=== PATIENT | female | born 1975 | race Caucasian/White ===

== ENCOUNTER 2020-01-27 09:53 | Outpatient (REF) | payer OTHER, SELFPAY | END 2020-01-27 09:55 | LOC: HO.SL 09:53 | PROVIDERS: PCP Internal Medicine; Visit Provider Internal Medicine | DX: G47.33 Obstructive sleep apnea (adult) (pediatric) (principal); R06.83 Snoring | CPT/HCPCS: 95806 ==

== ENCOUNTER 2020-02-01 08:42 | Outpatient (REF) | payer OTHER, SELFPAY ==
--- NOTE | 2020-02-01 | US_ITS ---
EXAMINATION: US RENAL CLINICAL INFORMATION: Calculus of kidney. COMPARISON: None TECHNIQUE: Real-time imaging of the kidneys and bladder. FINDINGS: RIGHT KIDNEY: 12.8 x 5.7 x 6.0 cm (SAG x AP x TRV). The kidney is normal in size, contour, and echogenicity. Renal cortical thickness is normal. No calculi or focal parenchymal lesions. No hydronephrosis. LEFT KIDNEY: 12.7 x 5.7 x 4.2 cm (SAG x AP x TRV). The kidney is normal in size, contour, and echogenicity. Renal cortical thickness is normal. No calculi or focal parenchymal lesions. No hydronephrosis. IMPRESSION: Unremarkable renal ultrasound. No evidence of hydronephrosis.
== END 2020-02-01 08:43 | disposition home or self-care (01) ==
LOC: HO.HMGCX 08:42
PROVIDERS: PCP Internal Medicine; Visit Provider Urology
DX: N20.0 Calculus of kidney (principal)
CPT/HCPCS: 76775; 95806

== ENCOUNTER → 2020-02-11 09:06 | Outpatient (BNVA) | payer OTHER, SELFPAY | PROVIDERS: PCP Internal Medicine; Visit Provider Urology | DX: Z48.816 Encounter for surgical aftercare following surgery on the genitourinary system (principal) | CPT/HCPCS: 51798; 99212; 99214 ==

== ENCOUNTER → 2020-02-16 09:42 | Outpatient (BNVA) | payer OTHER, SELFPAY | PROVIDERS: PCP Internal Medicine; Visit Provider Internal Medicine | DX: G47.33 Obstructive sleep apnea (adult) (pediatric) (principal); E66.9 Obesity, unspecified; R06.00 Dyspnea, unspecified | CPT/HCPCS: 94010; 99213 ==

== ENCOUNTER 2020-03-01 12:49 | Outpatient (REF) | payer OTHER, SELFPAY ==
--- NOTE | 2020-03-01 12:54 | XR_ITS ---
EXAMINATION: XR CHEST CLINICAL INFORMATION: Chest pain. COMPARISON: None TECHNIQUE: 2 views of the chest were obtained. FINDINGS: No significant abnormality is noted involving the heart, lungs, mediastinum, bony thorax or soft tissues. XR/XR chest 2V IMPRESSION: Unremarkable chest examination.
== END 2020-03-01 12:50 | disposition home or self-care (01) ==
LOC: HO.HMGCX 12:49
PROVIDERS: PCP Internal Medicine; Visit Provider Nurse Practitioner Family
DX: R07.89 Other chest pain (principal)
CPT/HCPCS: 71046

== ENCOUNTER 2020-03-05 08:54 | Inpatient (IN) | payer OTHER, SELFPAY ==
[2020-03-05] VITALS (9 sets, daily range): BP systolic 113–155; BP diastolic 61–114; PULSE 88–105; RESP 16–20; TEMP 36.6–37; O2SAT 95–100; BMI 36.1; BMI 35.9
--- NOTE | 2020-03-05 09:15 | ED_ITS ---
HPI - Nausea/Vomiting/Diarrhea General Chief complaint: Abdominal Pain Stated complaint: N/V Time Seen by Provider: 03/05/20 09:05 Source: patient Mode of arrival: ambulatory Limitations: no limitations History of Present Illness HPI Narrative: 44 yo female with past medical history of fibromyalgia, optic neuritis, MD, bipolar, depression, h/o heroin use but not currently, OA, DULCE, h/o bladder incontinence with interstim, hernia repair, known rectal prolapse here abdominal pain/NBNB vomiting x 6 since last evening. Took a percocet with continued pain. [place] like she needed to move her bowels and able to pass very small hard stool this morning. Last bowel movement 3 days ago. Has some urinary frequency at baseline. No hematuria, worsening frequency, dysuria. No fevers/chills. LMP 02/27. Also c/o right middle back pain x 2 weeks. Seen at urgent care 03/01 and given flexeril for presumed MS pain. Patient tells me continued pain. No heavy lifting, bending or recent falls or trauma. MD elicited complaint: nausea, vomiting, abdominal pain and flank pain Onset (ago): day(s) Associated nausea: Yes Associated abdominal pain: Yes Location of pain: diffuse Radiation: diffuse Pain consistency: constant Severity: mild Quality: cramping Exacerbating factors: none Relieving factors: none Associated symptoms: nausea/vomiting Related Data Home Medications Medication Instructions Recorded Confirmed aripiprazole 5 mg tablet 5 mg PO DAILY 01/26/20 03/05/20 aspirin 81 mg tablet,delayed 81 mg PO DAILY 01/26/20 03/05/20 release bupropion HCl 300 mg 24 hr tablet, 300 mg PO DAILY 01/26/20 03/05/20 extended release carbamazepine 200 mg tablet 200 mg PO QID 01/26/20 03/05/20 cholecalciferol (vitamin D3) 50 50 mcg PO BEDTIME 01/26/20 03/05/20 mcg (2,000 unit) capsule clonazepam 1 mg tablet 1 mg PO TID PRN 01/26/20 03/05/20 fluoxetine 20 mg capsule 40 mg PO DAILY 01/26/20 03/05/20 glycopyrrolate 1 mg tablet 1 mg PO TID 01/26/20 03/05/20 melatonin 10 mg capsule 10 mg BEDTIME 01/26/20 03/05/20 clindamycin phosphate 1 % lotion 1 applic TOPICAL DAILY 10/21/20 11/08/20 mometasone 0.1 % topical ointment 1 applic TOPICAL DAILY 02/16/20 03/05/20 norethindrone acetate 5 mg tablet 5 mg PO DAILY 02/16/20 03/05/20 primidone 50 mg tablet 100 mg PO TID 02/16/20 03/05/20 tretinoin 0.1 % topical cream 1 applic TOPICAL BEDTIME PRN 02/16/20 03/05/20 Previous Rx's Medication Instructions Recorded ondansetron HCl 4 mg tablet 4 mg PO Q6H #20 tab 02/11/20 cyclobenzaprine 5 mg tablet 5 mg PO BEDTIME PRN #14 tab 03/01/20 naproxen 500 mg tablet 500 mg PO BID PRN #30 tab 03/01/20 Allergies Allergy/AdvReac Type Severity Reaction Status Date / Time Penicillins Allergy Severe ITCHING/SWE Verified 02/16/20 10:01 LLING doxycycline [DOXYCYCLINE] Allergy Intermediate SEVERE Verified 02/16/20 10:01 ITCHING, pruritis sulfamethoxazole [Bactrim] Allergy Unknown Unknown Verified 02/16/20 10:01 Review of Systems Review of Systems: Yes all other systems are reviewed and are negative Constitutional: Constitutional: Reports no additional constitutional complaints, Denies body ache(s), Denies chills, Denies fever(s), Denies headache(s) and Denies weakness Eyes: Eyes: Reports no additional eye complaints and Denies change in vision ENT: Reports system reviewed and no additional complaints, except as documented, Denies dizziness, Denies headache(s), Denies nasal congestion, Denies nasal discharge and Denies neck pain Cardiovascular: Cardiovascular: Reports no additional cardiovascular co mplaints, Denies chest pain, Denies leg edema and Denies dyspnea Respiratory: Respiratory: Reports no additional respiratory complaints, Denies cough and Denies dyspnea Gastrointestinal: Gastrointestinal: Reports no additional gastrointestinal complaints, Reports abdominal pain, Reports constipation, Reports nausea and Reports vomiting Genitourinary: Genitourinary: Reports no additional female genitourinary complaints and Denies urinary incontinence Musculoskeletal: Musculoskeletal: Reports no additional musculoskeletal complaints, Denies back pain, Denies arthralgias, Denies joint swelling, Denies neck pain, Denies numbness and Denies tingling Integumentary/Breasts: Skin/Breast: Reports system reviewed and no additional complaints, except as docu and Denies rash Neurologic: Reports system reviewed and no additional complaints, except as documented, Denies Abnormal speech present, Denies dizziness, Denies headache(s), Denies numbness, Denies tingling and Denies weakness PMFSH Past Medical History Attestation statement: The following information was validated with the patient. Source: obtained from family and nursing notes reviewed Medical History (Updated 03/05/20 @ 12:06 by Paula Morrow NP) Arthritis Back pain Bipolar II disorder Dyspnea Fibromyalgia History of MD (myocardial infarction) History of urinary incontinence Lab test negative for COVID-19 virus Obesity Optic neuritis DULCE (obstructive sleep apnea) Rectal prolapse Surgical History H/O cystoscopy (06/08/19) History of pubovaginal sling (10/19/19) History of total left knee replacement (TKR) (11/2016) History of total right knee replacement (06/2016) Social History Social History (Updated 03/01/20 @ 20:02 by Bekah Ohara RN) Alcohol intake: unknown Smoking Status: Unknown if ever smoked Tobacco Type: Cigarette Use of substances other than those prescribed or required for medical reasons: Unknown Substance Use Type: Marijuana and Opiates Advance Directives: No Advance Directives Information Provided: No Physical Exam Vital Signs: Vital Signs: Last Vital Signs Pulse 105 H 03/05/20 12:20 Resp 18 03/05/20 12:19 BP 155/114 H 03/05/20 12:20 Pulse Ox 100 03/05/20 12:20 Body Mass Index 36.1 Const: General: cooperative, healthy appearing, comfortable and no acute distress Orientation/consciousness: patient oriented x3 Limitations: no limitations HENMT: Head: Yes normal to inspection Ears: hearing grossly normal bilaterally General nose exam: Normal external nose present Face and sinus: Yes normal facial exam Mouth: Normal oral and palatal mucosa present Throat: Yes posterior oropharynx normal Eyes: General: appearance normal, both eyes and all related structures Pupils: Equal, round and reactive pupils present Neck: Neck: Yes normal visual inspection Chest: Chest palpation & inspection: normal inspection of the chest Resp: Effort & Inspection: normal respiratory effort Auscultation: clear to auscultation bilaterally Cardio: Rate: regular rate Rhythm: regular rhythm Peripheral pulses: Peripheral pulses 2+ throughout GI: Inspection: Yes normal to inspection Palpation (GI): Soft to palpation, Tenderness to palpation present (GI) (diffusely moderate tenderneess), no guarding and not rigid Auscultation: normal bowel sounds Back/Spine/Pelvis: Thoracic/Lumbar Spine: thoracic and lumbar spine normal to inspection Skin: General skin exam: no rashes or lesions noted Neuro: General: patient oriented x3, no focal motor deficits and normal sensation to monofilament Cranial nerves: Yes Equal, round and reactive pupils present Cognition (Neuro): normal cognition Speech: No Abnormal speech present Gait exam (Neuro): Normal gait present Motor exam (neuro): 5/5 motor strength present throughout Extrem: General: Yes normal to inspection Course Course Course Narrative: 44 yo female here with abdominal pain, right flank pain, vomiting and constipation. Will need labs, UA, ur , CT A/P. NSB, antiemetic and analgesia. 1154-CT concerning for partial small-bowel obstruction. Patient has required 2 doses of IV narcotics and 2 doses of IV antiemetic for symptoms. She she has not vomited here only complaining of nausea. Call out to surgery discuss. 1205-discussed with Dr. Mahmood from surgery. Plan for admission. MDM - Nausea/Vomiting/Diarrhea MDM Narrative Medical decision making narrative: Considered SBO, constipation, gas troenteritis, diverticulitis, renal colic, pyelo/uti Medical Records Attestation: I reviewed the patient's medical records. Lab Data Attestation: I reviewed the patient's lab results. Result diagrams: 03/05/20 09:34 03/05/20 09:34 Labs: Lab Results 03/05/20 03/05/20 03/05/20 Range/Units 09:34 09:34 09:34 WBC 10.7 (4.8-10.8) X10*3/uL RBC 4.70 (4.20-5.50) X10*6/uL Hgb 13.3 (12.0-16.0) g/dl Hct 40.3 (37-47) % MCV 85.7 (80-98) fL MCH 28.3 (27.0-33.0) pg MCHC 33.0 (31.0-35.0) g/dl RDW 13.0 (11.0-16.0) % Plt Count 304 (160-400) X10*3/uL MPV 10.3 (9.4-12.3) fL Immature Gran % (Auto) 0.2 (0.0-0.4) % Neut % (Auto) 92.6 H (45-73) % Lymph % (Auto) 4.5 L (20-40) % [place] % (Auto) 2.4 (2-11) % Eos % (Auto) 0.1 (0-4) % Baso % (Auto) 0.2 (0-2) % Lymph # (Auto) 0.5 L (1.2-4.9) X10*3/uL [place] # (Auto) 0.3 (0.1-1.2) X10*3/uL Eos # (Auto) 0.0 (0.0-0.4) X10*3/uL Baso # (Auto) 0.0 (0.0-0.2) X10*3/uL Abs Immat Gran (auto) 0.02 (0.00-0.03) X10*3/uL Absolute Neuts (auto) 9.9 H (2.0-8.3) X10*3/uL Absolute Nucleated RBC 0.000 (0.0-0.012) X10*3/uL Nucleated RBC % (auto) 0.0 (0.0-0.2) /100WBC Sodium 134 L (135-145) mmol/L Potassium 4.1 (3.3-5.1) mmol/l Chloride 104 (96-108) mmol/L Carbon Dioxide 22 (22-29) mmol/L Anion Gap 12 (12-20) BUN 18 H (9-16) mg/dL Creatinine 0.71 (0.5-1.4) mg/dL Estim Creat Clear Calc 107.4 Estimated GFR > 60 Random Glucose 154 H (60-115) mg/dL Calcium 8.2 L (8.4-10.2) mg/dL Magnesium 1.6 (1.6-2.6) mg/dL Total Bilirubin < 0.2 (0.0-1.0) mg/dL Direct Bilirubin < 0.2 (0.0-0.5) mg/dL AST 18 (5-31) U/L ALT 15 (0-31) U/L Alkaline Phosphatase 69 (39-117) U/L Total Protein 6.3 L (6.5-8.0) g/dL Albumin 4.1 (3.5-5.0) g/dL Lipase 8 (8-78) U/L Urine Color YELLOW Urine Appearance CLOUDY Urine pH 6.5 (5.0-8.0) Ur Specific [place] 1.025 (1.005-1.025) Urine Protein NEG (NEG-TRACE) MG/DL Urine Glucose (UA) NEG (NEG) MG/DL Urine Ketones NEG (NEG) MG/DL Urine Blood NEG (NEG) Urine Nitrite NEG (NEG) Ur Leukocyte Esterase NEG (NEG) Urine Test NEGATIVE (NEGATIVE) Imaging Data CT scan - abdomen: Radiologist's impression: EXAMINATION: CT ABDOMEN AND PELVIS WITH CONTRAST CLINICAL INFORMATION: Diffuse abdominal pain. Constipation. Rule out small bowel obstruction. COMPARISON: None TECHNIQUE: Multidetector volumetric images were obtained from the superior aspect of the liver through the pubic symphysis following administration 85 mL of Omnipaque 350 intravenous contrast. Sagittal and coronal reformatted images were obtained on the technologist's workstation. Oral contrast: No This CT examination was performed using dose optimization techniques as appropriate, variously including the following: *Automated exposure control *Adjustment of mA and/or kV according to patient size (this includes techniques or standardized protocols for targeted exams where dose is matched to indication/reason for exam; i.e. extremities or head) *Use of iterative reconstruction technique DLP: 712 mGy-cm FINDINGS: LUNG BASES: There is mild dependent atelectasis bilaterally. LIVER, GALLBLADDER, AND BILIARY TREE: The liver is normal in size, shape, and attenuation. No focal hepatic lesion or biliary ductal dilatation is present. The gallbladder is unremarkable with no evidence of radiopaque gallstones, gallbladder wall thickening, or obvious pericholecystic inflammatory changes. PANCREAS: Unremarkable. SPLEEN: Unremarkable. ADRENAL GLANDS: Unremarkable. KIDNEYS AND URETERS: The kidneys are normal in size, shape, and attenuation. No hydronephrosis, hydroureter, or calculi seen. No perinephric stranding. BLADDER: Unremarkable. GASTROINTESTINAL TRACT: The stomach and duodenum are unremarkable. Proximal loops of jejunum are mildly dilated. There is a transition zone to the right of midline in the upper abdomen. The appearance suggests incomplete obstruction. No mass or wall thickening is demonstrated. Distal small bowel loops are decompressed and unremarkable. No abnormality of the small bowel mesentery is demonstrated. The colon is unremarkable. Air and stool are present through the course of the colon. The appendix is normal. ABDOMINAL WALL: No significant hernia is appreciated. LYMPH NODES: Normal. VASCULAR: Unremarkable. PELVIC VISCERA: Unremarkable. OSSEOUS STRUCTURES: An electrical stimulator is present along the right side of the sacrum extending to the sciatic notch. No bony abnormality is demonstrated. CT/CT abdomen pelvis w con IMPRESSION: Mildly dilated proximal jejunal loops with transition zone in the right upper abdomen concerning for incomplete small bowel obstruction. Cause of obstruction is not apparent. Discharge Plan Discharge Clinical Impression: Partial bowel obstruction Qualifiers: Intestinal obstruction type: unspecified Qualified Code(s): K56.600 - Partial intestinal obstruction, unspecified as to cause Prescriptions: No Action cyclobenzaprine 5 mg tablet 5 mg PO BEDTIME PRN (Reason: muscle spasm) Qty: 14 RF: 0 naproxen 500 mg tablet 500 mg PO BID PRN (Reason: pain) Qty: 30 RF: 0 ondansetron HCl [Zofran] 4 mg tablet 4 mg PO Q6H Qty: 20 RF: 1 clonazepam 1 mg tablet 1 mg PO TID PRN (Reason: Skin Cleansing) RF: 0 aspirin 81 mg tablet,delayed release (DR/EC) 81 mg PO DAILY RF: 0 melatonin 10 mg capsule 10 mg BEDTIME RF: 0 glycopyrrolate 1 mg tablet 1 mg PO TID RF: 0 fluoxetine 20 mg capsule 40 mg PO DAILY RF: 0 aripiprazole 5 mg tablet 5 mg PO DAILY RF: 0 carbamazepine 200 mg tablet 200 mg PO QID RF: 0 bupropion HCl 300 mg tablet extended release 24 hr 300 mg PO DAILY RF: 0 cholecalciferol (vitamin D3) 50 mcg (2,000 unit) capsule 50 mcg PO BEDTIME RF: 0 norethindrone acetate 5 mg tablet 5 mg PO DAILY RF: 0 primidone 50 mg tablet 100 mg PO TID RF: 0 mometasone 0.1 % ointment 1 applic topical DAILY RF: 0 tretinoin 0.1 % cream 1 applic topical BEDTIME PRN (Reason: Skin Cleansing) RF: 0 clindamycin phosphate 1 % lotion 1 applic topical DAILY RF: 0
[2020-03-05 09:43] LABS: Basophils Percent Auto 0.2 % (0-2); Eosinophils Percent Auto 0.1 % (0-4); Hematocrit 40.3 % (37-47); Hemoglobin 13.3 g/dl (12.0-16.0); Imm Gran Abs Auto 0.02 X10*3/uL (0.00-0.03); Imm Gran Pct Auto 0.2 % (0.0-0.4); Lymphocytes Absolute Auto 0.5 X10*3/uL (1.2-4.9); Lymphocytes Percent Auto 4.5 % (20-40); MANUAL DIFF FLAG NO; Mean Corpuscular Hemoglobin 28.3 pg (27.0-33.0); Mean Corpuscular Volume 85.7 fL (80-98); Mean Platelet Volume 10.3 fL (9.4-12.3); Monocytes Absolute Auto 0.3 X10*3/uL (0.1-1.2); Monocytes Percent Auto 2.4 % (2-11); Neutrophils Absolute Auto 9.9 X10*3/uL (2.0-8.3); Neutrophils Percent Auto 92.6 % (45-73); Platelet Count 304 X10*3/uL (160-400); SCAN SMEAR FLAG 1; White Blood Count 10.7 X10*3/uL (4.8-10.8)
[2020-03-05] MEDS: ondansetron HCL 4 MG/2 ML VIAL IVPUSH ×3 (09:43→19:17)
[2020-03-05] MEDS: Morphine Sulfate 4 MG/ML CARTRIDGE IVPUSH ×2 (09:43→19:24)
[2020-03-05] MEDS: 0.9 % Sodium Chloride 1,000 ML 999 ML IV (09:44)
[2020-03-05 09:45] LABS: UPreg QC Valid YES; Urine Pregnancy NEGATIVE (NEGATIVE)
[2020-03-05 09:47] LABS: Appearance Urine CLOUDY; Color Urine YELLOW; Glucose Urine UA NEG (NEG); Leukocyte Esterase Urine NEG (NEG); Nitrite Urine NEG (NEG); PH 6.5 (5.0-8.0); Specific Gravity - Urine 1.025 (1.005-1.025); Urine Blood NEG (NEG); Urine Ketones NEG (NEG); Urine Protein NEG (NEG-TRACE)
[2020-03-05 10:12] LABS: Alanine Aminotransferase 15 U/L (0-31); Albumin Level 4.1 g/dL (3.5-5.0); Alkaline Phosphatase 69 U/L (39-117); Anion Gap 12 (12-20); Aspartate Amino Transferase 18 U/L (5-31); Bilirubin Direct < 0.2 mg/dL (0.0-0.5); Bilirubin Total < 0.2 mg/dL (0.0-1.0); Blood Urea Nitrogen 18 mg/dL (9-16); Calcium 8.2 mg/dL (8.4-10.2); Carbon Dioxide 22 mmol/L (22-29); Chloride 104 mmol/L (96-108); Creatinine Clr Calc Pharmacy 107.4; Estimated Glomerular Filt Rate > 60; Glucose Random 154 mg/dL (60-115); Lipase 8 U/L (8-78); Magnesium 1.6 mg/dL (1.6-2.6); Potassium 4.1 mmol/l (3.3-5.1); Sodium 134 mmol/L (135-145); Total Protein 6.3 g/dL (6.5-8.0)
--- NOTE | 2020-03-05 10:20 | CT_ITS ---
EXAMINATION: CT ABDOMEN AND PELVIS WITH CONTRAST CLINICAL INFORMATION: Diffuse abdominal pain. Constipation. Rule out small bowel obstruction. COMPARISON: None TECHNIQUE: Multidetector volumetric images were obtained from the superior aspect of the liver through the pubic symphysis following administration 85 mL of Omnipaque 350 intravenous contrast. Sagittal and coronal reformatted images were obtained on the technologist's workstation. Oral contrast: No This CT examination was performed using dose optimization techniques as appropriate, variously including the following: *Automated exposure control *Adjustment of mA and/or kV according to patient size (this includes techniques or standardized protocols for targeted exams where dose is matched to indication/reason for exam; i.e. extremities or head) *Use of iterative reconstruction technique DLP: 712 mGy-cm FINDINGS: LUNG BASES: There is mild dependent atelectasis bilaterally. LIVER, GALLBLADDER, AND BILIARY TREE: The liver is normal in size, shape, and attenuation. No focal hepatic lesion or biliary ductal dilatation is present. The gallbladder is unremarkable with no evidence of radiopaque gallstones, gallbladder wall thickening, or obvious pericholecystic inflammatory changes. PANCREAS: Unremarkable. SPLEEN: Unremarkable. ADRENAL GLANDS: Unremarkable. KIDNEYS AND URETERS: The kidneys are normal in size, shape, and attenuation. No hydronephrosis, hydroureter, or calculi seen. No perinephric stranding. BLADDER: Unremarkable. GASTROINTESTINAL TRACT: The stomach and duodenum are unremarkable. Proximal loops of jejunum are mildly dilated. There is a transition zone to the right of midline in the upper abdomen. The appearance suggests incomplete obstruction. No mass or wall thickening is demonstrated. Distal small bowel loops are decompressed and unremarkable. No abnormality of the small bowel mesentery is demonstrated. The colon is unremarkable. Air and stool are present through the course of the colon. The appendix is normal. ABDOMINAL WALL: No significant hernia is appreciated. LYMPH NODES: Normal. VASCULAR: Unremarkable. PELVIC VISCERA: Unremarkable. OSSEOUS STRUCTURES: An electrical stimulator is present along the right side of the sacrum extending to the sciatic notch. No bony abnormality is demonstrated. CT/CT abdomen pelvis w con IMPRESSION: Mildly dilated proximal jejunal loops with transition zone in the right upper abdomen concerning for incomplete small bowel obstruction. Cause of obstruction is not apparent.
--- NOTE | 2020-03-05 11:07 | PC.NURSE ---
NO VOMITING NOTED SLOWLY RESOLVING NAUSEA
--- NOTE | 2020-03-05 11:41 | PC.NURSE ---
PT AMBULATORY TO THE BATHROOM REQUESTING MORE NAUSEA MEDICATION NO VOMITING NOTED
[2020-03-05] MEDS: HYDROmorphone HCl 1 MG/ML SYRINGE IVPUSH ×2 (12:19→15:47)
[2020-03-05 13:37] LABS: SARS COV2 PCR INHOUSE NEGATIVE (Negative)
--- NOTE | 2020-03-05 14:33 | PC.NURSE ---
called floor for admission
--- NOTE | 2020-03-05 16:48 | PC.NURSE ---
report given for admission to floor
--- NOTE | 2020-03-05 17:07 | P.HPGS_ITS ---
History of Present Illness History of Present Illness Chief complaint: partial small bowel obstruction Narrative: Niya Haji is a 44 year old female With complaints of abdominal pain and constipation made worse today. She also has a history of rectal prolapse and reports needing to strain to have a bowel movement on a normal basis. She reports nausea and vomiting is subsequently presented to the emergency department. She denies fever or chills. Workup revealed mild read abdominal distension with tenderness to palpation. CT of the abdomen and pelvis however revealed distended loops of proximal small bowel with an area of transition to decompressed small bowel suggestive of a partial small-bowel ob struction. Patient is admitted to the surgical service for management of small- bowel obstruction. She has had previous urologic surgery and hernia surgery. Review of Systems Constitutional: Constitutional: Denies headache(s) and Denies weakness ENT: Denies dizziness and Denies headache(s) Cardiovascular: Cardiovascular: Denies chest pain, Denies rapid heart rate, Denies palpitations and Denies slow heart rate Respiratory: Respiratory: Denies chest congestion, Denies cough, Denies pain o n inspiration and Denies wheezing Gastrointestinal: Gastrointestinal: Reports abdominal pain, Reports bloating, Reports change in stool character, Reports constipation, Denies diarrhea, Repo rts nausea, Reports vomiting and Denies hematemesis Musculoskeletal: Musculoskeletal: Denies numbness and Denies tingling Integumentary/Breasts: Skin/Breast: Denies change in pigmentation, Denies erythema and Denies rash Neurologic: Reports system reviewed and no additional complaints, except as documented, Denies Abnormal speech present, Denies confusion, Denies dizziness, Denies headache(s), Denies numbness, Denies tingling and Denies weakness Psychiatric: Psychiatric: Reports anxiety, Denies confusion and Denies depression Endocrine: Endocrine: Denies palpitations Hematologic/Lymphatic: Hematologic/Lymphatic: Denies easy bleeding, Denies easy bruising and Denies lymphadenopathy Allergic/Immunologic: Allergic/Immunologic: Denies wheezing PMFSH Past Medical History Medical History Arthritis Back pain Bipolar II disorder Dyspnea Fibromyalgia History of MO (myocardial infarction) History of urinary incontinence Lab test negative for COVID-19 virus Obesity Optic neuritis DULCE (obstructive sleep apnea) Rectal prolapse Surgical History Surgical History H/O cystoscopy (06/08/19) History of pubovaginal sling (10/19/19) History of total left knee replacement (TKR) (11/2016) History of total right knee replacement (06/2016) Social History Social History Alcohol intake: unknown Smoking Status: Unknown if ever smoked Tobacco Type: Cigarette Use of substances other than those prescribed or required for medical reasons: Unknown Substance Use Type: Marijuana and Opiates Advance Directives: No Advance Directives Information Provided: No Meds Allergies Allergy/AdvReac Type Severity Reaction Status Date / Time Penicillins Allergy Severe ITCHING/SWE Verified 02/16/20 10:01 LLING doxycycline [DOXYCYCLINE] Allergy Intermediate SEVERE Verified 02/16/20 10:01 ITCHING, pruritis sulfamethoxazole [Bactrim] Allergy Unknown Unknown Verified 02/16/20 10:01 Home Medications Medication Instructions Recorded Confirmed Type aripiprazole 5 mg tablet 5 mg PO DAILY 01/26/20 03/05/20 History aspirin 81 mg tablet,delayed 81 mg PO DAILY 01/26/20 03/05/20 History release bupropion HCl 300 mg 24 hr tablet, 300 mg PO DAILY 01/26/20 03/05/20 History extended release carbamazepine 200 mg tablet 200 mg PO QID 01/26/20 03/05/20 History cholecalciferol (vitamin D3) 50 50 mcg PO BEDTIME 01/26/20 03/05/20 History mcg (2,000 unit) capsule clonazepam 1 mg tablet 1 mg PO TID PRN 01/26/20 03/05/20 History fluoxetine 20 mg capsule 40 mg PO DAILY 01/26/20 03/05/20 History glycopyrrolate 1 mg tablet 1 mg PO TID 01/26/20 03/05/20 History melatonin 10 mg capsule 10 mg BEDTIME 01/26/20 03/05/20 History clindamycin phosphate 1 % lotion 1 applic TOPICAL DAILY 02/16/20 03/05/20 History mometasone 0.1 % topical ointment 1 applic TOPICAL DAILY 02/16/20 03/05/20 History norethindrone acetate 5 mg tablet 5 mg PO DAILY 02/16/20 03/05/20 History primidone 50 mg tablet 100 mg PO TID 02/16/20 03/05/20 History tretinoin 0.1 % topical cream 1 applic TOPICAL BEDTIME PRN 02/16/20 03/05/20 History Physical Exam Vital Signs: Vital Signs: Last Vital Signs Temp 98.3 F 03/05/20 14:07 Pulse 102 H 03/05/20 15:50 Resp 16 03/05/20 15:50 BP 147/93 H 03/05/20 15:50 Pulse Ox 98 03/05/20 15:50 Body Mass Index 36.1 Const: General: No confusion Nutritional Appearance: well nourished Orientation/consciousness: No confusion Eyes: Sclerae: sclerae normal EOM: EOMs intact bilaterally Neck: Neck: Yes normal visual inspection Resp: Effort & Inspection: normal respiratory effort, no cough and no respira tory distress Cardio: Jugular venous distension: no JVD Rate: regular rate Rhythm: regular rhythm GI: Inspection: Yes normal to inspection Palpation (GI): Soft to palpation, Tenderness to palpation present (GI), Guarding due to palpation present (GI) and Rigid due to palpation Percussion: Yes normal to percussion Auscul tation: normal bowel sounds Skin: General skin exam: dry skin Rashes: no rashes Neuro: General: No confusion Speech: No Abnormal speech present Extrem: General: Yes no clubbing, cyanosis or edema Right upper extremity: normal capillary refill Left upper extremity: full ROM Results Results Labs: Short CBC 03/05/20 Range/Units 09:34 WBC 10.7 (4.8-10.8) X10*3/uL Hgb 13.3 (12.0-16.0) g/dl Hct 40.3 (37-47) % Plt Count 304 (160-400) X10*3/uL BMP 03/05/20 09:34 Sodium 134 L Potassium 4.1 Chloride 104 Carbon Dioxide 22 BUN 18 H Creatinine 0.71 Calcium 8.2 L Liver Function 03/05/20 Range/Units 09:34 Total Bilirubin < 0.2 (0.0-1.0) mg/dL Direct Bilirubin < 0.2 (0.0-0.5) mg/dL AST 18 (5-31) U/L ALT 15 (0-31) U/L Alkaline Phosphatase 69 (39-117) U/L Albumin 4.1 (3.5-5.0) g/dL Urine 03/05/20 Range/Units 09:34 Urine Color YELLOW Urine Appearance CLOUDY Urine pH 6.5 (5.0-8.0) Ur Specific [place] 1.025 (1.005-1.025) Urine Protein NEG (NEG-TRACE) MG/DL Urine Glucose (UA) NEG (NEG) MG/DL Urine Test NEGATIVE (NEGATIVE) CT of the abdomen and pelvis ( 03/05/2020) Dilated proximal small bowel with transition zone in the mid small-bowel with decompressed distal small bowel. Colon is full of stool. An electrical stimulator is present along the right side of the sacrum extending to the sciatic notch; battery pack is in the lower right back. Assessment and Plan (1) Partial bowel obstruction: Qualifiers: Intestinal obstruction type: unspecified Qualified Code(s): K56.600 - Partial intestinal obstruction, unspecified as to cause Status: Acute Patient presents with a history of chronic constipation recently diagnosed with rectal prolapse. She is undergoing a workup for this by an outside certified athletic trainer. Workup today in emergency department reveals a slightly dilated proximal small bowel with decompressed distal small bowel suggestive of a partial small-bowel obstruction although no clear cause of the obstruction is identified. The patient does have a colon full of gas and stool also suggestive of a partial obstruction. Will hold off on nasogastric tube as the stomach is not extremely dilated. She would placed on bowel rest with IV fluids. For abdominal pain is improved in the morning she will be started on liquids and advanced from there. The patient expressed understanding and agrees withof the plan
[2020-03-05] MEDS: Dextrose 5 % and Lactated Ring 1,000 ML 125 ML IVCONT (18:56)
[2020-03-05] MEDS: clonazePAM 1 MG TABLET PO (19:24)
[2020-03-05] MEDS: FLUoxetine HCl 20 MG CAPSULE 40 MG PO (19:34)
[2020-03-05] MEDS: carBAMazepine 200 MG TABLET PO (19:34)
[2020-03-05] MEDS: buPROPion HCl XL 300 MG TAB.ER.24H PO (19:35)
[2020-03-05] MEDS: Melatonin 3 MG TABLET 9 MG PO (20:40)
[2020-03-05] MEDS: Primidone 50 MG TABLET 100 MG PO (20:40)
[2020-03-05] MEDS: Cyclobenzaprine HCl 5 MG TABLET PO (20:40)
[2020-03-05] MEDS: NaPROXEN 500 MG TABLET PO (20:44)
[2020-03-06] VITALS (7 sets, daily range): BP systolic 98–141; BP diastolic 64–94; PULSE 69–96; RESP 18; TEMP 36.3–37; O2SAT 96–99; BMI 35.9
[2020-03-06] MEDS: ondansetron HCL 4 MG/2 ML VIAL IVPUSH ×3 (03:58→19:40)
[2020-03-06] MEDS: clonazePAM 1 MG TABLET PO ×3 (03:58→19:41)
[2020-03-06] MEDS: Dextrose 5 % and Lactated Ring 1,000 ML 125 ML IVCONT ×3 (04:00→20:57)
[2020-03-06 05:05] LABS: MANUAL DIFF FLAG NO
[2020-03-06 05:14] LABS: Basophils Percent Auto 0.4 % (0-2); Eosinophils Absolute Auto 0.1 X10*3/uL (0.0-0.4); Eosinophils Percent Auto 1.1 % (0-4); Hematocrit 34.7 % (37-47); Hemoglobin 11.2 g/dl (12.0-16.0); Imm Gran Abs Auto 0.02 X10*3/uL (0.00-0.03); Imm Gran Pct Auto 0.3 % (0.0-0.4); Lymphocytes Absolute Auto 1.9 X10*3/uL (1.2-4.9); Lymphocytes Percent Auto 26.4 % (20-40); Mean Corpuscular HGB Conc 32.3 g/dl (31.0-35.0); Mean Corpuscular Hemoglobin 28.1 pg (27.0-33.0); Mean Corpuscular Volume 87.2 fL (80-98); Mean Platelet Volume 10.7 fL (9.4-12.3); Monocytes Absolute Auto 0.6 X10*3/uL (0.1-1.2); Monocytes Percent Auto 9.1 % (2-11); Neutrophils Absolute Auto 4.4 X10*3/uL (2.0-8.3); Neutrophils Percent Auto 62.7 % (45-73); Platelet Count 271 X10*3/uL (160-400); Red Blood Count 3.98 X10*6/uL (4.20-5.50); Red Cell Distribution Width 13.4 % (11.0-16.0)
[2020-03-06 05:37] LABS: Anion Gap 8 (12-20); Blood Urea Nitrogen 12 mg/dL (9-16); Calcium 7.6 mg/dL (8.4-10.2); Carbon Dioxide 26 mmol/L (22-29); Chloride 106 mmol/L (96-108); Creatinine Clr Calc Pharmacy 108.6; Estimated Glomerular Filt Rate > 60; Glucose Random 103 mg/dL (60-115); Potassium 3.6 mmol/l (3.3-5.1); Sodium 136 mmol/L (135-145)
[2020-03-06] MEDS: NaPROXEN 500 MG TABLET PO (08:28)
[2020-03-06] MEDS: buPROPion HCl XL 300 MG TAB.ER.24H PO (09:16)
[2020-03-06] MEDS: Primidone 50 MG TABLET 100 MG PO ×3 (09:16→20:56)
[2020-03-06] MEDS: ARIPiprazole 5 MG TABLET PO (09:16)
[2020-03-06] MEDS: carBAMazepine 200 MG TABLET PO ×4 (09:16→20:57)
[2020-03-06] MEDS: FLUoxetine HCl 20 MG CAPSULE 40 MG PO (09:16)
[2020-03-06] MEDS: Morphine Sulfate 2 MG/ML CARTRIDGE IVPUSH ×4 (09:28→19:41)
--- NOTE | 2020-03-06 12:49 | P.PNGS_ITS ---
Subjective Subjective Interval history: patient reports continued abdominal pain but improved from yesterday. She reports some nausea but no vomiting. She did pass a small hard bowel movement but no flatus. Physical Exam Vital Signs: Vital Signs: Last Vital Signs Temp 97.9 F 03/06/20 11:30 Pulse 91 03/06/20 11:30 Resp 18 03/06/20 11:30 BP 129/69 03/06/20 11:30 Pulse Ox 97 03/06/20 11:30 Body Mass Index 35.9 Const: Other: Well-nourished, well-developed, no acute distress somewhat less anxious than yesterday Resp: Other: breathing comfortably on room air, no respiratory distress, no cough GI: Other: soft, minimally tender to deep palpation, no rebound, no guarding, no rigidity, no tympany to percussion. Skin: Other: Warm and dry, no rash Progress Note: A&P Assessment and plan (1) Partial bowel obstruction: Status: Acute Assessment and Plan: patient admitted yesterday for a partial small-bowel obstruction and abdominal pain. This morning the patient feels somewhat improved but continues to have some abdominal pain and nausea. She also reports passing a small bowel movement. I recommended continuing the bowel rest with IV fluids. Will add IV Tylenol to assist with pain relief without narcotic. Encourage patient to ambulate in the hallways as well. Fall Risk Details Current Medications: Current Medications Generic Name Dose Route Start Last Admin Trade Name Freq PRN Reason Stop Dose Admin Aripiprazole 5 mg 03/06/20 09:00 03/06/20 09:16 Aripiprazole 5 Mg Tablet PO 5 mg DAILY LAURY Administration Bupropion HCl 300 mg 03/06/20 09:00 03/06/20 09:16 Bupropion Hcl Xl 300 Mg Tab.Er.24h PO 300 mg DAILY LAURY Administration Carbamazepine 200 mg 03/05/20 17:00 03/06/20 12:12 Carbamazepine 200 Mg Tablet PO 200 mg QID LAURY Administration Clonazepam 1 mg 03/05/20 18:48 03/06/20 12:12 Clonazepam 1 Mg Tablet PO 1 mg TID PRN Administration Anxiety Cyclobenzaprine HCl 5 mg 03/05/20 15:13 03/05/20 20:40 Cyclobenzaprine Hcl 5 Mg Tablet PO 5 mg BEDTIME PRN Administration muscle spasm Fluoxetine HCl 40 mg 03/06/20 09:00 03/06/20 09:16 Fluoxetine Hcl 20 Mg Capsule PO 40 mg DAILY LAURY Administration Dextrose/Lactated Ringer's 1,000 mls @ 125 mls/hr 03/05/20 17:44 03/06/20 12:12 D5lr IVCONT 125 mls/hr .Q8H LAURY Administration Promethazine HCl 6.25 mg/ 50.25 mls @ 201 mls/hr 03/06/20 08:40 03/06/20 09:32 Sodium Chloride IV Infused Q6H PRN Infusion Nausea Acetaminophen 1,000 mg in 100 mls @ 400 mls/hr 03/06/20 12:10 Ofirmev IV Q6H PRN Abdominal Pain Melatonin 9 mg 03/05/20 21:00 03/05/20 20:40 Melatonin 3 Mg Tablet PO 9 mg BEDTIME LAURY Administration Morphine Sulfate 2 mg 03/06/20 08:40 03/06/20 12:27 Morphine Sulfate 2 Mg/Ml Cartridge IVPUSH 2 mg Q3H PRN Administration Pain, Severe (Pain Scale 7-10) Naproxen 500 mg 03/05/20 15:13 03/06/20 08:28 Naproxen 500 Mg Tablet PO 500 mg BID PRN Administration pain Non-Formulary Medication 1 mg 03/05/20 21:00 Glycopyrrolate PO TID [facility] Non-Formulary Medication 5 mg 03/06/20 09:00 Norethindrone Acetate PO DAILY LAURY Non-Formulary Medication 1 applic 03/05/20 15:13 Tretinoin TOPICAL BEDTIME PRN Skin Cleansing Non-Formulary Medication 1 applic 03/06/20 09:00 Clindamycin Phosphate TOPICAL DAILY LAURY Ondansetron HCl 4 mg 03/05/20 17:44 03/06/20 12:12 Ondansetron Hcl 4 Mg/2 Ml Vial IVPUSH 4 mg QID PRN Administration Nausea Pharmacy Consult 1 each 03/05/20 11:51 Consult Rx Perform Med Rec MISCELLANE ONCE PRN Consult order Primidone 100 mg 03/05/20 21:00 03/06/20 09:16 Primidone 50 Mg Tablet PO 100 mg TID LAURY Administration Time Spent With Patient Time: Total time spent is greater than 50% in coordination of care (as documented) at patient's floor/unit and/or counseling patient: Time with patient: 15 - 24 minutes
--- NOTE | 2020-03-06 13:33 | MHC.CM.PN ---
PT REPORTS SHE LIVES AT HOME WITH HER 17YO SON. PT HAS A SHOWER CHAIR, CANE, WALKER, AND BRACES FOR BOTH HER KNEES AND HANDS. PT REPORTS SHE PRIMARILY USES THE CANE TO AMBULATE. 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 PT CONFIRMS HER PCP IS LUIZA LARA. PT DOES NOT HAVE A HCP CURRENTLY. SHE DID NOT WANT TO COMPLETE ONE TODAY BUT WAS WILLING TO TAKE THE EDUCATION PACKET ALONG WITH THE DOCUMENT TO CONSIDER AT A LATER TIME. CURRENT DC PLAN IS HOME WITH NO SERVICES PT WILL SELF ARRANGE TRANSPORT
[2020-03-06] MEDS: Melatonin 3 MG TABLET 9 MG PO (20:57)
[2020-03-06] MEDS: Cyclobenzaprine HCl 5 MG TABLET PO (21:02)
[2020-03-07] VITALS (7 sets, daily range): BP systolic 103–153; BP diastolic 64–86; PULSE 62–111; RESP 16–20; TEMP 36.2–36.9; O2SAT 92–98
--- NOTE | 2020-03-07 | FL_ITS ---
EXAMINATION: FL SMALL BOWEL SERIES CLINICAL INFORMATION: Partial small bowel obstruction COMPARISON: CT of the abdomen and pelvis 03/05/2020 TECHNIQUE: Following a zinc chloride operator image of the abdomen, contrast was administered orally, and interval abdominal radiographs were performed to assess for contrast progression through the small bowel. Following contrast transit through the small bowel and into the colon, the patient was placed on the fluoroscopy table, and multiple spot images were obtained. FINDINGS: Truck Driver Rubbish Collector image of the abdomen demonstrates a normal bowel gas pattern. There is stool throughout the colon. There is delayed transit time of contrast material through the small bowel. Contrast did not reach the colon by 3 hours and 5 minutes. Small bowel loops are of normal caliber throughout the abdomen and pelvis. The jejunal and ileal fold patterns are normal, without evidence of abnormal thickening. Follow-up exam the following day was performed at 19 hours. Oral contrast is no longer seen in the small bowel. There is oral contrast in the colon. No dilated loops of small or large bowel are seen. The terminal ileum was not optimally evaluated. FLUOROSCOPY TIME: 0.5 minutes DOSE AREA PRODUCT: 55 duffy per centimeter squared. Total dose 10 9 mgy. 12 overhead images. FL/FL small bowel follow through IMPRESSION: Slow small bowel transit. No evidence of obstruction.
--- NOTE | 2020-03-07 | FL_ITS ---
EXAMINATION: XR FLUOROSCOPY UPPER GI WITH AIR CLINICAL INFORMATION: Partial small bowel obstruction COMPARISON: Previous CT of the abdomen and pelvis 03/05/2020 TECHNIQUE: Limited upper GI was performed using thin and thick barium and effervescent granules. The esophagus was evaluated with the patient upright. AP and bilateral oblique images of the stomach and duodenum with the patient in the supine position were performed. Patient could not roll on the table. FINDINGS: Esophageal motility is normal. No evidence of mass stricture, hernia or reflux is seen. The stomach and duodenum are normal-appearing. No fold thickening, mass, ulcer or stricture is seen. FLUOROSCOPY TIME: 0.8 minutes DOSE AREA PRODUCT: 8.3 duffy per centimeter squared. Total dose 33 mgy. 21 saved fluoroscopic images. FL/FL upper GI w air IMPRESSION: Unremarkable examination.
[2020-03-07] MEDS: Morphine Sulfate 2 MG/ML CARTRIDGE IVPUSH ×7 (00:15→23:28)
[2020-03-07] MEDS: NaPROXEN 500 MG TABLET PO ×2 (03:05→20:30)
[2020-03-07] MEDS: ondansetron HCL 4 MG/2 ML VIAL IVPUSH ×3 (03:36→20:29)
[2020-03-07] MEDS: Dextrose 5 % and Lactated Ring 1,000 ML 125 ML IVCONT ×3 (03:48→22:59)
[2020-03-07] MEDS: clonazePAM 1 MG TABLET PO ×3 (03:52→20:30)
[2020-03-07] MEDS: Primidone 50 MG TABLET 100 MG PO ×3 (07:34→20:31)
[2020-03-07] MEDS: FLUoxetine HCl 20 MG CAPSULE 40 MG PO (07:35)
[2020-03-07] MEDS: carBAMazepine 200 MG TABLET PO ×3 (07:35→20:30)
[2020-03-07] MEDS: buPROPion HCl XL 300 MG TAB.ER.24H PO (07:35)
[2020-03-07] MEDS: ARIPiprazole 5 MG TABLET PO (07:35)
--- NOTE | 2020-03-07 17:11 | PM.PNGS ---
Subjective Subjective Interval history: patient continues to have some abdominal pain and a small amount of flatus but no bowel movement today. She denies nausea or vomiting. Physical Exam Vital Signs: Vital Signs: Last Vital Signs Temp 98.2 F 03/07/20 15:51 Pulse 91 03/07/20 15:51 Resp 18 03/07/20 15:51 BP 153/86 H 03/07/20 15:51 Pulse Ox 97 03/07/20 15:51 Body Mass Index 35.9 Const: Other: Well-nourished, well-developed, no acute distress, cooperative Resp: Other: breathing comfortably on room air, no shortness of breath : Other: soft, nondistended, nontender, no rebound or guarding no tympany to percussion Skin: Other: warm and dry, no rash Extrem: General: No edema Progress Note: A&P Assessment and plan (1) Partial bowel obstruction: Status: Acute Assessment and Plan: Ms. Dawn has continued symptoms of small-bowel obstruction with no further bowel movement and abdominal pain. I recommended further evaluation with an upper GI study. If this is normal, a diet will be started. Patient understands and agrees with the plan. Fall Risk Details Current Medications: Current Medications Generic Name Dose Route Start Last Admin Trade Name Freq PRN Reason Stop Dose Admin Aripiprazole 5 mg 03/06/20 09:00 03/07/20 07:35 Aripiprazole 5 Mg Tablet PO 5 mg DAILY LAURY Administration Bupropion HCl 300 mg 03/06/20 09:00 03/07/20 07:35 Bupropion Hcl Xl 300 Mg Tab.Er.24h PO 300 mg DAILY LAURY Administration Carbamazepine 200 mg 03/05/20 17:00 03/07/20 14:04 Carbamazepine 200 Mg Tablet PO 200 mg QID LAURY Administration Clonazepam 1 mg 03/05/20 18:48 03/07/20 11:48 Clonazepam 1 Mg Tablet PO 1 mg TID PRN Administration Anxiety Cyclobenzaprine HCl 5 mg 03/05/20 15:13 03/06/20 21:02 Cyclobenzaprine Hcl 5 Mg Tablet PO 5 mg BEDTIME PRN Administration muscle spasm Fluoxetine HCl 40 mg 03/06/20 09:00 03/07/20 07:35 Fluoxetine Hcl 20 Mg Capsule PO 40 mg DAILY LAURY Administration Dextrose/Lactated Ringer's 1,000 mls @ 125 mls/hr 03/05/20 17:44 03/07/20 11:43 D5lr IVCONT 125 mls/hr .Q8H LAURY Administration Promethazine HCl 6.25 mg/ 50.25 mls @ 201 mls/hr 03/06/20 08:40 03/07/20 16:56 Sodium Chloride IV 201 mls/hr Q6H PRN Administration Nausea Acetaminophen 1,000 mg in 100 mls @ 400 mls/hr 03/06/20 12:10 03/06/20 21:20 Ofirmev IV Infused Q6H PRN Infusion Abdominal Pain Melatonin 9 mg 03/05/20 21:00 03/06/20 20:57 Melatonin 3 Mg Tablet PO 9 mg BEDTIME LAURY Administration Morphine Sulfate 2 mg 03/06/20 08:40 03/07/20 17:06 Morphine Sulfate 2 Mg/Ml Cartridge IVPUSH 2 mg Q3H PRN Administration Pain, Severe (Pain Scale 7-10) Naproxen 500 mg 03/05/20 15:13 03/07/20 03:05 Naproxen 500 Mg Tablet PO 500 mg BID PRN Administration pain Non-Formulary Medication 5 mg 03/06/20 09:00 Norethindrone Acetate PO DAILY LAURY Non-Formulary Medication 1 applic 03/05/20 15:13 Tretinoin TOPICAL BEDTIME PRN Skin Cleansing Non-Formulary Medication 1 applic 03/06/20 09:00 Clindamycin Phosphate TOPICAL DAILY LAURY Pt Own: 1 each 03/06/20 17:13 03/07/20 14:15 Glycopyrrolate 1mg PO 1 each Tab Q8H PRN Administration EXCESSIVE SWEATING Ondansetron HCl 4 mg 03/05/20 17:44 03/07/20 11:42 Ondansetron Hcl 4 Mg/2 Ml Vial IVPUSH 4 mg QID PRN Administration Nausea Pharmacy Consult 1 each 03/05/20 11:51 Consult Rx Perform Med Rec MISCELLANE ONCE PRN Consult order Primidone 100 mg 03/05/20 21:00 03/07/20 14:04 Primidone 50 Mg Tablet PO 100 mg TID LAURY Administration Time Spent With Patient Time: Total time spent is greater than 50% in coordination of care (as documented) at patient's floor/unit and/or counseling patient: Time with patient: 15 - 24 minutes
[2020-03-07] MEDS: Cyclobenzaprine HCl 5 MG TABLET PO (20:30)
[2020-03-07] MEDS: Melatonin 3 MG TABLET 9 MG PO (20:30)
[2020-03-08 03:10] VITALS: BP 134/80; PULSE 73; RESP 18; TEMP 36.8; O2SAT 99
[2020-03-08] MEDS: Morphine Sulfate 2 MG/ML CARTRIDGE IVPUSH ×6 (03:47→20:38)
[2020-03-08] MEDS: ondansetron HCL 4 MG/2 ML VIAL IVPUSH ×3 (06:45→20:38)
[2020-03-08] MEDS: Dextrose 5 % and Lactated Ring 1,000 ML 125 ML IVCONT (06:50)
[2020-03-08] MEDS: clonazePAM 1 MG TABLET PO ×2 (07:33→20:49)
[2020-03-08 08:00] VITALS: BP 121/77; PULSE 78; RESP 20; TEMP 36.6; O2SAT 98
--- NOTE | 2020-03-08 08:26 | P.PNGS_ITS ---
Subjective Subjective Interval history: Niya reports continued waves of nausea and abdominal pain. She denies passing flatus or bowel movement. Preliminary upper GI studies revealed normal esophagus and stomach. Contrast is noted to progress in to colon . A follow-up x-rays do today. Patient appears to have stool throughout the colon and may benefit from a stool softener. I suggested an enema but she is leary due to her rectal prolapse. Will advance diet after the UGI study is complete. Physical Exam Vital Signs: Vital Signs: Last Vital Signs Temp 98.3 F 03/08/20 03:10 Pulse 73 03/08/20 03:10 Resp 18 03/08/20 03:10 BP 134/80 03/08/20 03:10 Pulse Ox 99 03/08/20 03:10 Body Mass Index 35.9 Progress Note: A&P Fall Risk Details Current Medications: Current Medications Generic Name Dose Route Start Last Admin Trade Name Freq PRN Reason Stop Dose Admin Aripiprazole 5 mg 03/06/20 09:00 03/07/20 07:35 Aripiprazole 5 Mg Tablet PO 5 mg DAILY LAURY Administration Bupropion HCl 300 mg 03/06/20 09:00 03/07/20 07:35 Bupropion Hcl Xl 300 Mg Tab.Er.24h PO 300 mg DAILY LAURY Administration Carbamazepine 200 mg 03/05/20 17:00 03/07/20 20:30 Carbamazepine 200 Mg Tablet PO 200 mg QID LAURY Administration Clonazepam 1 mg 03/05/20 18:48 03/08/20 07:33 Clonazepam 1 Mg Tablet PO 1 mg TID PRN Administration Anxiety Cyclobenzaprine HCl 5 mg 03/05/20 15:13 03/07/20 20:30 Cyclobenzaprine Hcl 5 Mg Tablet PO 5 mg BEDTIME PRN Administration muscle spasm Fluoxetine HCl 40 mg 03/06/20 09:00 03/07/20 07:35 Fluoxetine Hcl 20 Mg Capsule PO 40 mg DAILY LAURY Administration Dextrose/Lactated Ringer's 1,000 mls @ 50 mls/hr 03/05/20 17:44 03/08/20 06:50 D5lr IVCONT 125 mls/hr .Q20H LAURY Administration Promethazine HCl 6.25 mg/ 50.25 mls @ 201 mls/hr 03/06/20 08:40 03/08/20 02:00 Sodium Chloride IV Infused Q6H PRN Infusion Nausea Acetaminophen 1,000 mg in 100 mls @ 400 mls/hr 03/06/20 12:10 03/08/20 02:59 Ofirmev IV Infused Q6H PRN Infusion Abdominal Pain Melatonin 9 mg 03/05/20 21:00 03/07/20 20:30 Melatonin 3 Mg Tablet PO 9 mg BEDTIME LAURY Administration Morphine Sulfate 2 mg 03/06/20 08:40 03/08/20 07:33 Morphine Sulfate 2 Mg/Ml Cartridge IVPUSH 2 mg Q3H PRN Administration Pain, Severe (Pain Scale 7-10) Naproxen 500 mg 03/05/20 15:13 03/07/20 20:30 Naproxen 500 Mg Tablet PO 500 mg BID PRN Administration pain Pt Own: 1 each 03/06/20 17:13 03/07/20 23:28 Glycopyrrolate 1mg PO 1 each Tab Q8H PRN Administration EXCESSIVE SWEATING Ondansetron HCl 4 mg 03/05/20 17:44 03/08/20 06:45 Ondansetron Hcl 4 Mg/2 Ml Vial IVPUSH 4 mg QID PRN Administration Nausea Pharmacy Consult 1 each 03/05/20 11:51 Consult Rx Perform Med Rec MISCELLANE ONCE PRN Consult order Polyethylene Glycol 17 gm 03/08/20 09:00 Polyethylene Glycol 3350 17 Gm Powd.Pack PO BID LAURY Primidone 100 mg 03/05/20 21:00 03/07/20 20:31 Primidone 50 Mg Tablet PO 100 mg TID LAURY Administration Time Spent With Patient Time: Total time spent is greater than 50% in coordination of care (as docu mented) at patient's floor/unit and/or counseling patient: Time with patient: 15 - 24 minutes
[2020-03-08] MEDS: Primidone 50 MG TABLET 100 MG PO ×3 (09:51→20:37)
[2020-03-08] MEDS: FLUoxetine HCl 20 MG CAPSULE 40 MG PO (09:51)
[2020-03-08] MEDS: ARIPiprazole 5 MG TABLET PO (09:51)
[2020-03-08] MEDS: carBAMazepine 200 MG TABLET PO ×4 (09:52→20:38)
[2020-03-08] MEDS: polyethylene glycoL 3350 17 GM POWD.PACK PO ×2 (09:52→20:38)
[2020-03-08] MEDS: buPROPion HCl XL 300 MG TAB.ER.24H PO (09:52)
[2020-03-08] MEDS: NaPROXEN 500 MG TABLET PO (09:54)
--- NOTE | 2020-03-08 11:24 | MHC.CM.PN ---
Home with no anticipated need for services, continues to be the goal. Patient c/o nausea and abdominal pain and reports no flatus nor BM. Plan is to advanced diet after UGI series. CM will continue to follow,
[2020-03-08 15:31] VITALS: BP 126/84; PULSE 80; RESP 16; TEMP 36.8; O2SAT 98
[2020-03-08 16:00] VITALS: BP 126/84; PULSE 80; RESP 16; TEMP 36.8; O2SAT 98
[2020-03-08 18:34] VITALS: BP 176/102; PULSE 84; RESP 16; TEMP 36.3; O2SAT 100
[2020-03-08 19:40] VITALS: BP 147/88; PULSE 86; RESP 18; O2SAT 97
[2020-03-08] MEDS: Cyclobenzaprine HCl 5 MG TABLET PO (20:38)
[2020-03-08] MEDS: Melatonin 3 MG TABLET 9 MG PO (20:38)
[2020-03-09] VITALS (7 sets, daily range): BP systolic 116–141; BP diastolic 73–79; PULSE 75–92; RESP 16–19; TEMP 35.9–36.6; O2SAT 91–98
[2020-03-09] MEDS: Morphine Sulfate 2 MG/ML CARTRIDGE IVPUSH ×8 (00:09→23:25)
[2020-03-09] MEDS: NaPROXEN 500 MG TABLET PO (00:10)
[2020-03-09] MEDS: ondansetron HCL 4 MG/2 ML VIAL IVPUSH ×4 (03:22→23:25)
[2020-03-09] MEDS: clonazePAM 1 MG TABLET PO ×3 (05:52→23:25)
[2020-03-09] MEDS: Primidone 50 MG TABLET 100 MG PO ×3 (08:43→20:13)
[2020-03-09] MEDS: polyethylene glycoL 3350 17 GM POWD.PACK PO ×2 (08:43→20:01)
[2020-03-09] MEDS: FLUoxetine HCl 20 MG CAPSULE 40 MG PO (08:43)
[2020-03-09] MEDS: buPROPion HCl XL 300 MG TAB.ER.24H PO (08:43)
[2020-03-09] MEDS: ARIPiprazole 5 MG TABLET PO (08:43)
[2020-03-09] MEDS: carBAMazepine 200 MG TABLET PO ×4 (08:43→20:02)
[2020-03-09] MEDS: Dextrose 5 % and Lactated Ring 1,000 ML 50 ML IVCONT (17:03)
--- NOTE | 2020-03-09 17:55 | PM.PNGS ---
Subjective Subjective Interval history: Patient informed of the upper GI study which showed contrast entering into the colon without small-bowel obstruction. She continues denied passing flatus or bowel movement. She does not want to take an enema due to her rectal prolapse history. Physical Exam Vital Signs: Vital Signs: Last Vital Signs Temp 97.9 F 03/09/20 15:46 Pulse 75 03/09/20 15:46 Resp 19 03/09/20 16:10 BP 141/79 H 03/09/20 15:46 Pulse Ox 97 03/09/20 15:46 Body Mass Index 35.9 Const: Other: Well-nourished well-developed, in no acute distress Resp: Other: breathing comfortably on room air, no respiratory distress GI: Other: soft, slightly distended, nontender, no rebound, no guarding, normal bowel sounds Skin: Other: warm and dry, no rash Extrem: Other: no edema Progress Note: A&P Assessment and plan (1) Partial bowel obstruction: Status: Acute Assessment and Plan: patient small-bowel obstruction appears to be resolved based on the upper GI study which showed contrast entering into the large bowel. Patient does have stool in her colon along with the contrast. I recommended either an enema or suppository to help past is stool. She is resistant due to her previous history of rectal prolapse. I recommended waiting 1 more day and continuing the MiraLax. If there is no improvement by tomorrow she is agreeable to proceeding with the enema. Fall Risk Details Current Medications: Current Medications Generic Name Dose Route Start Last Admin Trade Name Freq PRN Reason Stop Dose Admin Aripiprazole 5 mg 03/06/20 09:00 03/09/20 08:43 Aripiprazole 5 Mg Tablet PO 5 mg DAILY LAURY Administration Bupropion HCl 300 mg 03/06/20 09:00 03/09/20 08:43 Bupropion Hcl Xl 300 Mg Tab.Er.24h PO 300 mg DAILY LAURY Administration Carbamazepine 200 mg 03/05/20 17:00 03/09/20 16:10 Carbamazepine 200 Mg Tablet PO 200 mg QID LAURY Administration Clonazepam 1 mg 03/05/20 18:48 03/09/20 14:52 Clonazepam 1 Mg Tablet PO 1 mg TID PRN Administration Anxiety Cyclobenzaprine HCl 5 mg 03/05/20 15:13 03/08/20 20:38 Cyclobenzaprine Hcl 5 Mg Tablet PO 5 mg BEDTIME PRN Administration muscle spasm Fluoxetine HCl 40 mg 03/06/20 09:00 03/09/20 08:43 Fluoxetine Hcl 20 Mg Capsule PO 40 mg DAILY LAURY Administration Dextrose/Lactated Ringer's 1,000 mls @ 50 mls/hr 03/05/20 17:44 03/09/20 17:03 D5lr IVCONT 50 mls/hr .Q20H LAURY Administration Promethazine HCl 6.25 mg/ 50.25 mls @ 201 mls/hr 03/06/20 08:40 03/08/20 18:14 Sodium Chloride IV Infused Q6H PRN Infusion Nausea Melatonin 9 mg 03/05/20 21:00 03/08/20 20:38 Melatonin 3 Mg Tablet PO 9 mg BEDTIME LAURY Administration Morphine Sulfate 2 mg 03/06/20 08:40 03/09/20 16:10 Morphine Sulfate 2 Mg/Ml Cartridge IVPUSH 2 mg Q3H PRN Administration Pain, Severe (Pain Scale 7-10) Naproxen 500 mg 03/05/20 15:13 03/09/20 00:10 Naproxen 500 Mg Tablet PO 500 mg BID PRN Administration pain Pt Own: 1 each 03/06/20 17:13 03/08/20 17:30 Glycopyrrolate 1mg PO 1 each Tab Q8H PRN Administration EXCESSIVE SWEATING Ondansetron HCl 4 mg 03/05/20 17:44 03/09/20 16:10 Ondansetron Hcl 4 Mg/2 Ml Vial IVPUSH 4 mg QID PRN Administration Nausea Pharmacy Consult 1 each 03/05/20 11:51 Consult Rx Perform Med Rec MISCELLANE ONCE PRN Consult order Polyethylene Glycol 17 gm 03/08/20 09:00 03/09/20 08:43 Polyethylene Glycol 3350 17 Gm Powd.Pack PO 17 gm BID LAURY Administration Primidone 100 mg 03/05/20 21:00 03/09/20 14:53 Primidone 50 Mg Tablet PO 100 mg TID LAURY Administration Time Spent With Patient Time: Total time spent is greater than 50% in coordination of care (as documented) at patient's floor/unit and/or counseling patient: Time with patient: 15 - 24 minutes Procedures Abscess I/D Date of Service: 03/09/20
[2020-03-09] MEDS: Melatonin 3 MG TABLET 9 MG PO (20:02)
[2020-03-10] VITALS: BP 104/88; PULSE 80; RESP 16; TEMP 37.1; O2SAT 97
[2020-03-10] MEDS: Morphine Sulfate 2 MG/ML CARTRIDGE IVPUSH ×5 (02:56→16:17)
[2020-03-10] MEDS: ondansetron HCL 4 MG/2 ML VIAL IVPUSH ×3 (06:07→16:18)
[2020-03-10 07:48] VITALS: BP 135/78; PULSE 85; RESP 18; TEMP 36.7; O2SAT 98
[2020-03-10] MEDS: buPROPion HCl XL 300 MG TAB.ER.24H PO (08:17)
[2020-03-10] MEDS: ARIPiprazole 5 MG TABLET PO (08:17)
[2020-03-10] MEDS: polyethylene glycoL 3350 17 GM POWD.PACK PO (08:17)
[2020-03-10] MEDS: FLUoxetine HCl 20 MG CAPSULE 40 MG PO (08:17)
[2020-03-10] MEDS: Primidone 50 MG TABLET 100 MG PO ×2 (08:17→15:11)
[2020-03-10] MEDS: carBAMazepine 200 MG TABLET PO ×3 (08:17→16:17)
[2020-03-10] MEDS: clonazePAM 1 MG TABLET PO ×2 (08:17→15:12)
--- NOTE | 2020-03-10 08:47 | PM.PNGS ---
Subjective Subjective Interval history: Niya reports passing a small bowel movement but having increased pain in the rectum and pelvic area Physical Exam Vital Signs: Vital Signs: Last Vital Signs Temp 98.1 F 03/10/20 07:48 Pulse 85 03/10/20 07:48 Resp 18 03/10/20 07:48 BP 135/78 03/10/20 07:48 Pulse Ox 98 03/10/20 07:48 Body Mass Index 35.9 Const: General: cooperative, healthy appearing, comfortable and no acute distress GI: Other: soft, mild distention, no rebound, no guarding Skin: Other: warm and dry, no rash Extrem: Other: no edema Progress Note: A&P Assessment and plan (1) Partial bowel obstruction: Status: Acute Assessment and Plan: patient small-bowel obstruction is now resolved. She continues to have constipation however but is requesting increased narcotic. I have explained to the patient that increased narcotic is not going to help her constipation. I recommended trying a enema today. She reports pain after having the small hard bowel movement. Continue MiraLax. Fall Risk Details Current Medications: Current Medications Generic Name Dose Route Start Last Admin Trade Name Freq PRN Reason Stop Dose Admin Aripiprazole 5 mg 03/06/20 09:00 03/10/20 08:17 Aripiprazole 5 Mg Tablet PO 5 mg DAILY LAURY Administration Bupropion HCl 300 mg 03/06/20 09:00 03/10/20 08:17 Bupropion Hcl Xl 300 Mg Tab.Er.24h PO 300 mg DAILY LAURY Administration Carbamazepine 200 mg 03/05/20 17:00 03/10/20 08:17 Carbamazepine 200 Mg Tablet PO 200 mg QID LAURY Administration Clonazepam 1 mg 03/05/20 18:48 03/10/20 08:17 Clonazepam 1 Mg Tablet PO 1 mg TID PRN Administration Anxiety Cyclobenzaprine HCl 5 mg 03/05/20 15:13 03/08/20 20:38 Cyclobenzaprine Hcl 5 Mg Tablet PO 5 mg BEDTIME PRN Administration muscle spasm Fluoxetine HCl 40 mg 03/06/20 09:00 03/10/20 08:17 Fluoxetine Hcl 20 Mg Capsule PO 40 mg DAILY LAURY Administration Dextrose/Lactated Ringer's 1,000 mls @ 50 mls/hr 03/05/20 17:44 03/09/20 17:03 D5lr IVCONT 50 mls/hr .Q20H LAURY Administration Promethazine HCl 6.25 mg/ 50.25 mls @ 201 mls/hr 03/06/20 08:40 03/08/20 18:14 Sodium Chloride IV Infused Q6H PRN Infusion Nausea Melatonin 9 mg 03/05/20 21:00 03/09/20 20:02 Melatonin 3 Mg Tablet PO 9 mg BEDTIME LAURY Administration Mineral Oil 133 ml 03/10/20 08:46 Mineral Oil Enema 133 Ml Enema [place] ONCE PRN constipation Morphine Sulfate 2 mg 03/06/20 08:40 03/10/20 06:07 Morphine Sulfate 2 Mg/Ml Cartridge IVPUSH 2 mg Q3H PRN Administration Pain, Severe (Pain Scale 7-10) Naproxen 500 mg 03/05/20 15:13 03/09/20 00:10 Naproxen 500 Mg Tablet PO 500 mg BID PRN Administration pain Pt Own: 1 each 03/06/20 17:13 03/08/20 17:30 Glycopyrrolate 1mg PO 1 each Tab Q8H PRN Administration EXCESSIVE SWEATING Ondansetron HCl 4 mg 03/05/20 17:44 03/10/20 06:07 Ondansetron Hcl 4 Mg/2 Ml Vial IVPUSH 4 mg QID PRN Administration Nausea Pharmacy Consult 1 each 03/05/20 11:51 Consult Rx Perform Med Rec MISCELLANE ONCE PRN Consult order Polyethylene Glycol 17 gm 03/08/20 09:00 03/10/20 08:17 Polyethylene Glycol 3350 17 Gm Powd.Pack PO 17 gm BID LAURY Administration Primidone 100 mg 03/05/20 21:00 03/10/20 08:17 Primidone 50 Mg Tablet PO 100 mg TID LAURY Administration Time Spent With Patient Time: Total time spent is greater than 50% in coordination of care (as documented) at patient's floor/unit and/or counseling patient: Time with patient: 15 - 24 minutes Procedures Abscess I/D Date of Service: 03/10/20
[2020-03-10 09:57] VITALS: RESP 18
[2020-03-10] MEDS: Mineral OiL enema 133 ML ENEMA PR (11:24)
[2020-03-10] MEDS: Dextrose 5 % and Lactated Ring 1,000 ML 50 ML IVCONT (11:58)
[2020-03-10 12:59] VITALS: RESP 18
--- NOTE | 2020-03-10 15:41 | MHC.CM.PN ---
DC plan continues to be home with no services. Pt will self arrange transportation.
[2020-03-10 15:52] VITALS: BP 141/83; PULSE 86; RESP 18; TEMP 36.8; O2SAT 98
[2020-03-10 16:17] VITALS: RESP 18
--- NOTE | 2020-03-10 16:18 | MHC.CM.PN ---
PT DISCHARGING HOME TODAY WITH NO SERVICES. PT TO SELF ARRANGE TRANSPORTATION
--- NOTE | 2020-03-10 16:31 | P.DS_ITS ---
DS: Providers Provider Date of admission: 03/05/20 12:09 Primary care physician: Hector Galarza MD DS: Diagnosis Discharge Diagnosis (1) Partial bowel obstruction: Status: Acute DS: Medications Discharge Medications Home Medications: Home Medications Medication Instructions Recorded Confirmed aripiprazole 5 mg tablet 5 mg PO DAILY 01/26/20 03/05/20 aspirin 81 mg tablet,delayed 81 mg PO DAILY 01/26/20 03/05/20 release bupropion HCl 300 mg 24 hr tablet, 300 mg PO DAILY 01/26/20 03/05/20 extended release carbamazepine 200 mg tablet 200 mg PO QID 01/26/20 03/05/20 cholecalciferol (vitamin D3) 50 50 mcg PO BEDTIME 01/26/20 03/05/20 mcg (2,000 unit) capsule clonazepam 1 mg tablet 1 mg PO TID PRN 01/26/20 03/05/20 fluoxetine 20 mg capsule 40 mg PO DAILY 01/26/20 03/05/20 glycopyrrolate 1 mg tablet 1 mg PO TID 01/26/20 03/05/20 melatonin 10 mg capsule 10 mg BEDTIME 01/26/20 03/05/20 clindamycin phosphate 1 % lotion 1 applic TOPICAL DAILY 02/16/20 03/05/20 mometasone 0.1 % topical ointment 1 applic TOPICAL DAILY 02/16/20 03/05/20 norethindrone acetate 5 mg tablet 5 mg PO DAILY 02/16/20 03/05/20 primidone 50 mg tablet 100 mg PO TID 02/16/20 03/05/20 tretinoin 0.1 % topical cream 1 applic TOPICAL BEDTIME PRN 02/16/20 03/05/20 Previous Rx's Medication Instructions Recorded ondansetron HCl 4 mg tablet 4 mg PO Q6H #20 tab 02/11/20 cyclobenzaprine 5 mg tablet 5 mg PO BEDTIME PRN #14 tab 03/01/20 naproxen 500 mg tablet 500 mg PO BID PRN #30 tab 03/01/20 ondansetron HCl [Zofran] 4 mg PO Q8H PRN #30 tab 03/10/20 oxycodone 5 mg PO Q6H PRN #14 tab 03/10/20 DS: Summary Hospital Course Hospital Course: Niya Haji is a 44 year old female With complaints of abdominal pain and constipation made worse today. She also has a history of rectal prolapse and reports needing to strain to have a bowel movement on a normal basis. She reports nausea and vomiting is subsequently presented to the emergency department. She denies fever or chills. Workup revealed mild read abdominal distension with tenderness to palpation. CT of the abdomen and pelvis however revealed distended loops of proximal small bowel with an area of transition to decompressed small bowel suggestive of a partial small-bowel obstruction. Patient is admitted to the surgical service for management of small-bowel obstruction. She has had previous urologic surgery and hernia surgery. On the second hospital day, the patient felt somewhat improved but continues to have some abdominal pain and nausea. She also reported passing a small bowel movement. I recommended continuing the bowel rest with IV fluids and added IV Tylenol to assist with pain relief without narcotic. Encourage patient to ambulate in the hallways as well. On the next hospital day, she continued to report abdominal pain and no further bowel movement. An upper GI with small bowel follow through was requested. This studt was completed the following day and showed the passage of contrast through to the cecum without obstruction. She was therefore restarted on a diet and given MiraLax. On 03/10/2020, after tolerating her diet and passing several bowel movements, she was discharged to home. She reports being worked up as an outpatient for a rectal prolapse and I recommended she either follow up with her GI physician or be evaluated by Dr. Hess here at [facility]. Time Spent with Patient Time attestation: Total time spent providing and/or coordinating discharge services: Discharge coordination time: Less than 30 minutes Physical Exam Vital Signs: Vital Signs: Last Vital Signs Temp 98.3 F 03/10/20 15:52 Pulse 86 03/10/20 15:52 Resp 18 03/10/20 16:17 BP 141/83 H 03/10/20 15:52 Pulse Ox 98 03/10/20 15:52 Body Mass Index 35.9 Const: General: cooperative, comfortable and no acute distress Resp: Effort & Inspection: normal respiratory effort Auscultation: clear to auscultation bilaterally Cardio: Jugular venous distension: no JVD Rate: regular rate Rhythm: regular rhythm Heart sounds: S1 normal heart sound present and S2 normal heart sound present GI: Inspection: Yes normal to inspection Palpation (GI): Soft to palpation, nontender, no guarding and not rigid Skin: General skin exam: no rashes or lesions noted Extrem: General: Yes normal to inspection, Yes full ROM, No clubbing, No cyanosis and No edema DS: Data Data Completed and Pending Labs on day of discharge: 03/05/20 09:13 IV insert/maintain .Now 03/05/20 09:14 0.9 % Sodium Chloride [Ns] 1,000 ml IV 999 mls/hr Morphine Sulfate 4 mg IVPUSH ONCE ONE ondansetron HCL [Zofran] 4 mg IVPUSH ONCE ONE 03/05/20 09:34 Basic Metabolic Panel Stat Complete Blood Count Auto Diff Stat Lipase Stat Liver Panel Stat Magnesium Stat UA CC w/rflx Micro + Cult Stat Ur Preg Test Stat 03/05/20 10:20 CT abdomen pelvis w con Stat 03/05/20 11:43 ondansetron HCL [Zofran] 4 mg IVPUSH ONCE ONE 03/05/20 11:51 Consult Rx Perform Med Rec 1 each MISCELLANE ONCE PRN HYDROmorphone HCl [Dilaudid] 1 mg IVPUSH ONCE ONE 03/05/20 12:02 Transfer Order Routine 03/05/20 12:03 Code Status Routine 03/05/20 12:09 SARS COV2 PCR INHOUSE Stat 03/05/20 15:13 Cyclobenzaprine HCl [Flexeril] 5 mg PO BEDTIME PRN NaPROXEN [Naprosyn] 500 mg PO BID PRN tretinoin 1 applic TOPICAL BEDTIME PRN 03/05/20 15:34 HYDROmorphone HCl [Dilaudid] 1 mg IVPUSH ONCE ONE Promethazine HCL [Phenergan] 6.25 mg 0.9 % Sodium Chloride [Ns] 50 ml IV ONCE 03/05/20 15:44 Promethazine HCL [Phenergan] 25 mg IV .STK-MED ONE 03/05/20 Lunch NPO Diet 03/05/20 17:00 carBAMazepine [TEGretol] 200 mg PO QID 03/05/20 17:44 Dextrose 5 % and Lactated Ring [D5lr] 1,000 ml IVCONT 50 mls/hr Morphine Sulfate 4 mg IVPUSH ONCE PRN ondansetron HCL [Zofran] 4 mg IVPUSH QID PRN 03/05/20 17:44 Ambulate QSHIFT WHILE AWAKE Compression Therapy QSHIFT IV insert/maintain Q4HR Intake and Output QSHIFTE Vital Signs QSHIFT 03/05/20 18:48 clonazePAM [KlonoPIN] 1 mg PO TID PRN 03/05/20 21:00 Melatonin 9 mg PO BEDTIME Primidone [Mysoline] 100 mg PO TID 03/06/20 04:28 Basic Metabolic Panel DAILY@0600 Complete Blood Count Auto Diff DAILY@0600 03/06/20 08:40 Morphine Sulfate 2 mg IVPUSH Q3H PRN Promethazine HCL [Phenergan] 6.25 mg 0.9 % Sodium Chloride [Ns] 50 ml IV Q6H 03/06/20 09:00 ARIPiprazole [Abilify] 5 mg PO DAILY FLUoxetine HCl [Prozac] 40 mg PO DAILY buPROPion HCl XL [Wellbutrin XL] 300 mg PO DAILY clindamycin phosphate 1 applic TOPICAL DAILY norethindrone acetate 5 mg PO DAILY 03/06/20 09:08 Promethazine HCL [Phenergan] 25 mg IV .STK-MED ONE 03/06/20 12:10 Acetaminophen [Ofirmev] 1,000 mg in 100 ml IV Q6H 03/06/20 15:52 Promethazine HCL [Phenergan] 25 mg IV .STK-MED ONE 03/06/20 17:13 Patient Own Medication 1 each PO Q8H PRN 03/06/20 23:43 Promethazine HCL [Phenergan] 25 mg IV .STK-MED ONE 03/07/20 FL small bowel follow through Routine FL upper GI w air Routine 03/07/20 07:28 Promethazine HCL [Phenergan] 25 mg IV .STK-MED ONE 03/07/20 16:44 Promethazine HCL [Phenergan] 25 mg IV .STK-MED ONE 03/07/20 23:34 Promethazine HCL [Phenergan] 25 mg IV .STK-MED ONE 03/08/20 09:00 polyethylene glycoL 3350 [Miralax] 17 gm PO BID 03/08/20 17:14 Promethazine HCL [Phenergan] 25 mg IV .STK-MED ONE 03/10/20 08:46 Mineral OiL enema [Fleets Mineral Oil Enema] 133 ml NE ONCE PRN Laboratory Last Values WBC 7.0 X10*3/uL (4.8-10.8) 03/06/20 04:28 RBC 3.98 X10*6/uL (4.20-5.50) L 03/06/20 04:28 Hgb 11.2 g/dl (12.0-16.0) L 03/06/20 04:28 Hct 34.7 % (37-47) L 03/06/20 04:28 MCV 87.2 fL (80-98) 03/06/20 04:28 MCH 28.1 pg (27.0-33.0) 03/06/20 04: MCHC 32.3 g/dl (31.0-35.0) 03/06/20 04: RDW 13.4 % (11.0-16.0) 03/06/20 04:28 Plt Count 271 X10*3/uL (160-400) 03/06/20 04:28 MPV 10.7 fL (9.4-12.3) 03/06/20 04:28 Immature Gran % (Auto) 0.3 % (0.0-0.4) 03/06/20 04:28 Neut % (Auto) 62.7 % (45-73) 03/06/20 04:28 Lymph % (Auto) 26.4 % (20-40) 03/06/20 04:28 Plumas % (Auto) 9.1 % (2-11) 03/06/20 04:28 Eos % (Auto) 1.1 % (0-4) 03/06/20 04:28 Baso % (Auto) 0.4 % (0-2) 03/06/20 04:28 Lymph # (Auto) 1.9 X10*3/uL (1.2-4.9) 03/06/20 04:28 [place]umas # (Auto) 0.6 X10*3/uL (0.1-1.2) 03/06/20 04:28 Eos # (Auto) 0.1 X10*3/uL (0.0-0.4) 03/06/20 04:28 Baso # (Auto) 0.0 X10*3/uL (0.0-0.2) 03/06/20 04:28 Abs Immat Gran (auto) 0.02 X10*3/uL (0.00-0.03) 03/06/20 04:28 Absolute Neuts (auto) 4.4 X10*3/uL (2.0-8.3) 03/06/20 04:28 Absolute Nucleated RBC 0.000 X10*3/uL (0.0-0.012) 03/06/20 04:28 Nucleated RBC % (auto) 0.0 /100WBC (0.0-0.2) 03/06/20 04:28 Sodium 136 mmol/L (135-145) 03/06/20 04:28 Potassium 3.6 mmol/l (3.3-5.1) 03/06/20 04:28 Chloride 106 mmol/L (96-108) 03/06/20 04:28 Carbon Dioxide 26 mmol/L (22-29) 03/06/20 04:28 Anion Gap 8 (12-20) L 03/06/20 04:28 BUN 12 mg/dL (9-16) 03/06/20 04:28 Creatinine 0.70 mg/dL (0.5-1.4) 03/06/20 04:28 Estim Creat Clear Calc 108.6 03/06/20 04:28 Estimated GFR > 60 03/06/20 04:28 Random Glucose 103 mg/dL (60-115) 03/06/20 04:28 Calcium 7.6 mg/dL (8.4-10.2) L D 03/06/20 04:28 Magnesium 1.6 mg/dL (1.6-2.6) 03/05/20 09:34 Total Bilirubin < 0.2 mg/dL (0.0-1.0) 03/05/20 09:34 Direct Bilirubin < 0.2 mg/dL (0.0-0.5) 03/05/20 09:34 AST 18 U/L (5-31) 03/05/20 09:34 ALT 15 U/L (0-31) 03/05/20 09:34 Alkaline Phosphatase 69 U/L (39-117) 03/05/20 09:34 Total Protein 6.3 g/dL (6.5-8.0) L 03/05/20 09:34 Albumin 4.1 g/dL (3.5-5.0) 03/05/20 09:34 Lipase 8 U/L (8-78) 03/05/20 09:34 Urine Color YELLOW 03/05/20 09:34 Urine Appearance CLOUDY 03/05/20 09:34 Urine pH 6.5 (5.0-8.0) 03/05/20 09:34 Ur Specific Carpenter 1.025 (1.005-1.025) 03/05/20 09:34 Urine Protein NEG MG/DL (NEG-TRACE) 03/05/20 09:34 Urine Glucose (UA) NEG MG/DL (NEG) 03/05/20 09:34 Urine Ketones NEG MG/DL (NEG) 03/05/20 09:34 Urine Blood NEG (NEG) 03/05/20 09:34 Urine Nitrite NEG (NEG) 03/05/20 09:34 Ur Leukocyte Esterase NEG (NEG) 03/05/20 09:34 Urine Test NEGATIVE (NEGATIVE) 03/05/20 09:34 Coronavirus (PCR) NEGATIVE (Negative) 03/05/20 12:09 Discharge Plan Discharge Patient Disposition: Home, Self-Care Referrals: Hector Galarza MD [Primary Care Provider] - Discharge Medications: New ondansetron HCl [Zofran] 4 mg tablet 4 mg PO Q8H PRN (Reason: nausea and vomiting) Qty: 30 RF: 0 oxycodone 5 mg tablet 5 mg PO Q6H PRN (Reason: pain) Qty: 14 RF: 0 Continued cyclobenzaprine 5 mg tablet 5 mg PO BEDTIME PRN (Reason: muscle spasm) Qty: 14 RF: 0 naproxen 500 mg tablet 500 mg PO BID PRN (Reason: pain) Qty: 30 RF: 0 ondansetron HCl [Zofran] 4 mg tablet 4 mg PO Q6H Qty: 20 RF: 1 clonazepam 1 mg tablet 1 mg PO TID PRN (Reason: Skin Cleansing) RF: 0 aspirin 81 mg tablet,delayed release (DR/EC) 81 mg PO DAILY RF: 0 melatonin 10 mg capsule 10 mg BEDTIME RF: 0 glycopyrrolate 1 mg tablet 1 mg PO TID RF: 0 fluoxetine 20 mg capsule 40 mg PO DAILY RF: 0 aripiprazole 5 mg tablet 5 mg PO DAILY RF: 0 carbamazepine 200 mg tablet 200 mg PO QID RF: 0 bupropion HCl 300 mg tablet extended release 24 hr 300 mg PO DAILY RF: 0 cholecalciferol (vitamin D3) 50 mcg (2,000 unit) capsule 50 mcg PO BEDTIME RF: 0 norethindrone acetate 5 mg tablet 5 mg PO DAILY RF: 0 primidone 50 mg tablet 100 mg PO TID RF: 0 mometasone 0.1 % ointment 1 applic topical DAILY RF: 0 tretinoin 0.1 % cream 1 applic topical BEDTIME PRN (Reason: Skin Cleansing) RF: 0 clindamycin phosphate 1 % lotion 1 applic topical DAILY RF: 0 Discharge Orders: Discharge Order (Routine); Ordered 03/10/20 Ordered By: Chapo Mahmood Diet: other Activity on Discharge: As tolerated Patient Instructions: Low Fiber Diet (DC) Discharge Date/Time: 03/10/20 17:00 Visit Report Forms: Patient Portal Discharge page Care Plan Goals: Remain on low residue diet Health Concerns: constipation, rectal prolapse Plan of Treatment: Please schedule an appointment with Dr. Hess for management of the rectal prolapse.
== END 2020-03-10 17:00 | disposition home or self-care (01) | DRG 390 ==
LOC: HO.ED 09:08 → HO.IMC 14:23 → HO.S3 03-08 23:58
PROVIDERS: Nurse Practitioner Family; Admitting Provider Surgery; Emergency Provider Emergency Medicine; PCP Internal Medicine; Visit Provider Surgery
DX: K56.600 Partial intestinal obstruction, unspecified as to cause (principal); Z20.828 Contact with and (suspected) exposure to other viral communicable diseases; M79.7 Fibromyalgia; Z96.653 Presence of artificial knee joint, bilateral; Z88.0 Allergy status to penicillin; Z88.2 Allergy status to sulfonamides; Z79.1 Long term (current) use of non-steroidal anti-inflammatories (NSAID); Z79.82 Long term (current) use of aspirin; Z79.899 Other long term (current) drug therapy
CPT/HCPCS: 36415; 74177; 74246; 74250; 80048; 80076; 81003; 81025; 83690; 83735; 85025; 96361; 96374; 96375; 96376; 99024; 99284; 99285; J0131; J1170; J2270; J2405; U0003

== ENCOUNTER 2020-03-15 08:19 | Emergency (ER) | payer OTHER, SELFPAY ==
[2020-03-15 09:12] VITALS: BP 137/68; PULSE 92; RESP 16; TEMP 36.5; O2SAT 98; BMI 34.7
--- NOTE | 2020-03-15 09:33 | ED_ITS ---
HPI - Abdominal Pain General Chief Complaint: Back Pain/Injury Stated Complaint: back pain Time Seen by Provider: 03/15/20 09:32 Source: patient Mode of arrival: ambulatory Limitations: no limitations History of Present Illness HPI narrative: has had this R sided posterior rib pain since 03/01 but last night coughed and pain became severe MD elicited complaint: other (R sided posterior rib pain) Pertinent past history: none Onset (ago): day(s) (March 01) Pain Consistency: constant Location: chest and R flank Severity: moderate Quality: stabbing and sharp Radiation: none Migration to: no migration Exacerbating factors: movement and other (deep breaths) Relieving factors: nothing Associated symptoms: denies other symptoms Related Data Home Medications Medication Instructions Recorded Confirmed aripiprazole 5 mg tablet 5 mg PO DAILY 01/26/20 03/05/20 aspirin 81 mg tablet,delayed 81 mg PO DAILY 01/26/20 03/05/20 release bupropion HCl 300 mg 24 hr tablet, 300 mg PO DAILY 01/26/20 03/05/20 extended release carbamazepine 200 mg tablet 200 mg PO QID 01/26/20 03/05/20 cholecalciferol (vitamin D3) 50 50 mcg PO BEDTIME 01/26/20 03/05/20 mcg (2,000 unit) capsule clonazepam 1 mg tablet 1 mg PO TID PRN 01/26/20 03/05/20 fluoxetine 20 mg capsule 40 mg PO DAILY 01/26/20 03/05/20 glycopyrrolate 1 mg tablet 1 mg PO TID 01/26/20 03/05/20 melatonin 10 mg capsule 10 mg BEDTIME 01/26/20 03/05/20 clindamycin phosphate 1 % lotion 1 applic TOPICAL DAILY 02/16/20 03/05/20 mometasone 0.1 % topical ointment 1 applic TOPICAL DAILY 02/16/20 03/05/20 norethindrone acetate 5 mg tablet 5 mg PO DAILY 02/16/20 03/05/20 primidone 50 mg tablet 100 mg PO TID 02/16/20 03/05/20 tretinoin 0.1 % topical cream 1 applic TOPICAL BEDTIME PRN 02/16/20 03/05/20 Previous Rx's Medication Instructions Recorded ondansetron HCl 4 mg tablet 4 mg PO Q6H #20 tab 02/11/20 cyclobenzaprine 5 mg tablet 5 mg PO BEDTIME PRN #14 tab 03/01/20 naproxen 500 mg tablet 500 mg PO BID PRN #30 tab 03/01/20 ondansetron HCl [Zofran] 4 mg PO Q8H PRN #30 tab 03/10/20 oxycodone 5 mg PO Q6H PRN #14 tab 03/10/20 diazepam [Valium] 5 mg PO TID PRN #10 tab 03/15/20 lidocaine 1 patch TOPICAL DAILY PRN #10 ea 03/15/20 Allergies Allergy/AdvReac Type Severity Reaction Status Date / Time Penicillins Allergy Severe ITCHING/SWE Verified 02/16/20 10:01 LLING doxycycline [DOXYCYCLINE] Allergy Intermediate SEVERE Verified 02/16/20 10:01 ITCHING, pruritis sulfamethoxazole [Bactrim] Allergy Unknown Unknown Verified 02/16/20 10:01 Review of Systems Review of Systems Constitutional : No Weight loss, No Fever, No Chills ENT/Mouth : No sore throat, No Rhinorrhea Eyes: No Eye Pain, No Swelling Cardiovascular : no Chest Pain, no SOB, no Dyspnea on Exertion, No Orthopnea, No Edema, No Palpitations Respiratory : No Cough, No Sputum Gastrointestinal : no Nausea, No Vomiting, No Diarrhea, No abdominal Pain, No Hematochezia, No Melena, R flank pain Genitourinary : No Dysuria, No Urinary Frequency Musculoskeletal : No joint pain, No Myalgias, No Joint Swelling Skin : No Skin Lesions, No rash Neuro : No Weakness, No Numbness, No Dizziness, No Headache Psych : No Anxiety/Panic, No Depression Heme/Lymph: No Bruising, No Lymphadenopathy Endocrine : No Polyuria, No Polydipsia All other systems reviewed and are negative Physical Exam Vital Signs: Vital Signs: Last Vital Signs Temp 98.4 F 03/15/20 11:27 Pulse 84 03/15/20 11:27 Resp 16 03/15/20 11:27 BP 136/86 03/15/20 11:27 Pulse Ox 100 03/15/20 11:27 Body Mass Index 34.7 Appearance: Alert. Oriented X3. No acute distress. Eyes: Pupils equal, round and reactive to light. ENT: Pharynx normal. Neck: Normal inspection. Neck supple. CVS: Normal heart rate and rhythm. Pulses normal. Respiratory: No respiratory distress. Breath sounds normal. Abdomen: Soft and nontender. Back: ttp along R posterior ribs reproduces pain Skin: Skin warm and dry. Normal skin color. Normal skin turgor. Extremities: No lower extremity edema. No calf ttp Neuro: Oriented X 3. No motor deficit. No sensory deficit. Course Course Course Narrative: call from Radiology 153pm - chest negative, CT abdomen recent scan 03/05 small bowel obstruction, subtle pancreas decreased hypoattenuation no inflammatory changes, no stones, early pancreatitis is possible but seems atypical given her pain will refer to MRI as outpatient for mass, her lipase is fine pain since 03/01 MDM - Abdominal Pain MDM Narrative Medical decision making narrative: 45 yo female with multiple medical problems presents with R sided posterior rib pain since 03/01 worse since cough last night at this time will need labs, ddimer, PO medications, UA, likely CT scan vs CTA pending ddimer - dispo per results and findings. Lab Data Result diagrams: 03/15/20 09:56 03/15/20 09:56 Labs: Lab Results 03/15/20 03/15/20 03/15/20 Range/Units 09:56 09:56 09:56 WBC 6.9 (4.8-10.8) X10*3/uL RBC 4.56 (4.20-5.50) X10*6/uL Hgb 12.7 (12.0-16.0) g/dl Hct 39.2 (37-47) % MCV 86.0 (80-98) fL MCH 27.9 (27.0-33.0) pg MCHC 32.4 (31.0-35.0) g/dl RDW 13.2 (11.0-16.0) % Plt Count 303 (160-400) X10*3/uL MPV 10.7 (9.4-12.3) fL Immature Gran % (Auto) 0.1 (0.0-0.4) % Neut % (Auto) 70.0 (45-73) % Lymph % (Auto) 22.9 (20-40) % [place] % (Auto) 5.3 (2-11) % Eos % (Auto) 1.0 (0-4) % Baso % (Auto) 0.7 (0-2) % Lymph # (Auto) 1.6 (1.2-4.9) X10*3/uL [place] # (Auto) 0.4 (0.1-1.2) X10*3/uL Eos # (Auto) 0.1 (0.0-0.4) X10*3/uL Baso # (Auto) 0.1 (0.0-0.2) X10*3/uL Abs Immat Gran (auto) 0.01 (0.00-0.03) X10*3/uL Absolute Neuts (auto) 4.8 (2.0-8.3) X10*3/uL Absolute Nucleated RBC 0.000 (0.0-0.012) X10*3/uL Nucleated RBC % (auto) 0.0 (0.0-0.2) /100WBC D-Dimer < 200 NG/ML Sodium 133 L (135-145) mmol/L Potassium 5.3 H D (3.3-5.1) mmol/l Chloride 104 (96-108) mmol/L Carbon Dioxide 21 L (22-29) mmol/L Anion Gap 13 (12-20) BUN 17 H (9-16) mg/dL Creatinine 0.73 (0.5-1.4) mg/dL Estim Creat Clear Calc 101.2 Estimated GFR > 60 Random Glucose 105 (60-115) mg/dL Calcium 8.2 L D (8.4-10.2) mg/dL Magnesium (1.6-2.6) mg/dL Total Bilirubin (0.0-1.0) mg/dL Direct Bilirubin (0.0-0.5) mg/dL AST (5-31) U/L ALT (0-31) U/L Alkaline Phosphatase (39-117) U/L Troponin I High Sens (<3.5-17.0) ng/L Total Protein (6.5-8.0) g/dL Albumin (3.5-5.0) g/dL Lipase (8-78) U/L Urine Color Urine Appearance Urine pH (5.0-8.0) Ur Specific [place] (1.005-1.025) Urine Protein (NEG-TRACE) MG/DL Urine Glucose (UA) (NEG) MG/DL Urine Ketones (NEG) MG/DL Urine Blood (NEG) Urine Nitrite (NEG) Ur Leukocyte Esterase (NEG) Urine Test (NEGATIVE) 03/15/20 03/15/20 03/15/20 Range/Units 09:56 09:56 09:57 WBC (4.8-10.8) X10*3/uL RBC (4.20-5.50) X10*6/uL Hgb (12.0-16.0) g/dl Hct (37-47) % MCV (80-98) fL MCH (27.0-33.0) pg MCHC (31.0-35.0) g/dl RDW (11.0-16.0) % Plt Count (160-400) X10*3/uL MPV (9.4-12.3) fL Immature Gran % (Auto) (0.0-0.4) % Neut % (Auto) (45-73) % Lymph % (Auto) (20-40) % [place] % (Auto) (2-11) % Eos % (Auto) (0-4) % Baso % (Auto) (0-2) % Lymph # (Auto) (1.2-4.9) X10*3/uL [place] # (Auto) (0.1-1.2) X10*3/uL Eos # (Auto) (0.0-0.4) X10*3/uL Baso # (Auto) (0.0-0.2) X10*3/uL Abs Immat Gran (auto) (0.00-0.03) X10*3/uL Absolute Neuts (auto) (2.0-8.3) X10*3/uL Absolute Nucleated RBC (0.0-0.012) X10*3/uL Nucleated RBC % (auto) (0.0-0.2) /100WBC D-Dimer NG/ML Sodium (135-145) mmol/L Potassium (3.3-5.1) mmol/l Chloride (96-108) mmol/L Carbon Dioxide (22-29) mmol/L Anion Gap (12-20) BUN (9-16) mg/dL Creatinine (0.5-1.4) mg/dL Estim Creat Clear Calc Estimated GFR Random Glucose (60-115) mg/dL Calcium (8.4-10.2) mg/dL Magnesium 1.8 (1.6-2.6) mg/dL Total Bilirubin 0.2 (0.0-1.0) mg/dL Direct Bilirubin < 0.2 (0.0-0.5) mg/dL AST 14 (5-31) U/L ALT 10 (0-31) U/L Alkaline Phosphatase 71 (39-117) U/L Troponin I High Sens < 3.5 (<3.5-17.0) ng/L Total Protein 6.0 L (6.5-8.0) g/dL Albumin 3.8 (3.5-5.0) g/dL Lipase 34 (8-78) U/L Urine Color YELLOW Urine Appearance HAZY Urine pH 5.5 (5.0-8.0) Ur Specific [place] >= 1.030 H (1.005-1.025) Urine Protein NEG (NEG-TRACE) MG/DL Urine Glucose (UA) NEG (NEG) MG/DL Urine Ketones NEG (NEG) MG/DL Urine Blood NEG (NEG) Urine Nitrite NEG (NEG) Ur Leukocyte Esterase NEG (NEG) Urine Test NEGATIVE (NEGATIVE) ECG Data Attestation: I personally reviewed and interpreted this ECG as follows: ECG interpretation date: 03/15/20 ECG interpretation time: 09:53 Interpretation: Rate: 87 Rhythm: NSR [place]: normal Normal P waves. Normal RICK. Normal QRS complex. ST T wave : normal qTC: normal prior studies: no acute ischemia The study has been interpreted contemporaneously by me. . Discharge Plan Discharge Clinical Impression: Acute flank pain Patient Disposition: Home, Self-Care Instructions: Flank Pain (ED) Prescriptions: New lidocaine 4 % adhesive patch,medicated 1 patch topical DAILY PRN (Reason: pain) Qty: 10 RF: 0 diazepam [Valium] 5 mg tablet 5 mg PO TID PRN (Reason: muscle spasm) Qty: 10 RF: 0 No Action ondansetron HCl [Zofran] 4 mg tablet 4 mg PO Q8H PRN (Reason: nausea and vomiting) Qty: 30 RF: 0 oxycodone 5 mg tablet 5 mg PO Q6H PRN (Reason: pain) Qty: 14 RF: 0 cyclobenzaprine 5 mg tablet 5 mg PO BEDTIME PRN (Reason: muscle spasm) Qty: 14 RF: 0 naproxen 500 mg tablet 500 mg PO BID PRN (Reason: pain) Qty: 30 RF: 0 ondansetron HCl [Zofran] 4 mg tablet 4 mg PO Q6H Qty: 20 RF: 1 clonazepam 1 mg tablet 1 mg PO TID PRN (Reason: Skin Cleansing) RF: 0 aspirin 81 mg tablet,delayed release (DR/EC) 81 mg PO DAILY RF: 0 melatonin 10 mg capsule 10 mg BEDTIME RF: 0 glycopyrrolate 1 mg tablet 1 mg PO TID RF: 0 fluoxetine 20 mg capsule 40 mg PO DAILY RF: 0 aripiprazole 5 mg tablet 5 mg PO DAILY RF: 0 carbamazepine 200 mg tablet 200 mg PO QID RF: 0 bupropion HCl 300 mg tablet extended release 24 hr 300 mg PO DAILY RF: 0 cholecalciferol (vitamin D3) 50 mcg (2,000 unit) capsule 50 mcg PO BEDTIME RF: 0 norethindrone acetate 5 mg tablet 5 mg PO DAILY RF: 0 primidone 50 mg tablet 100 mg PO TID RF: 0 mometasone 0.1 % ointment 1 applic topical DAILY RF: 0 tretinoin 0.1 % cream 1 applic topical BEDTIME PRN (Reason: Skin Cleansing) RF: 0 clindamycin phosphate 1 % lotion 1 applic topical DAILY RF: 0 Referrals: Hector Galarza MD [Primary Care Provider] - 2 days (RECHECK POTASSIUM IN 2 DAYS IT WAS MILDLY ELEVATED YOUR PANCREAS ALSO SHOWS SOME CHANGES YOU WILL NEED A MRI OF YOUR ABDOMEN TO MAKE SURE THERE IS NO MASS) [facility] Past Medical History Attestation statement: The following information was validated with the patient. Medical History Arthritis Back pain Bipolar II disorder Dyspnea Fibromyalgia History of [place] (myocardial infarction) History of urinary incontinence Lab test negative for COVID-19 virus Obesity Optic neuritis DULCE (obstructive sleep apnea) Rectal prolapse Small bowel obstruction Surgical History H/O cystoscopy (06/08/19) History of pubovaginal sling (10/19/19) History of total left knee replacement (TKR) (11/2016) History of total right knee replacement (06/2016) Social History Social History Household Members: Family Housing: House Alcohol intake: unknown Smoking Status: Unknown if ever smoked Tobacco Type: Cigarette Substance Use Type: Marijuana Advance Directives: No Advance Directives Information Provided: Yes service: No Current occupational status: unemployed
--- NOTE | 2020-03-15 09:34 | ECG_ITS ---
Test Reason : CP Blood Pressure : / mmHG Vent. Rate : 087 BPM Atrial Rate : 087 BPM P-R Int : 140 ms QRS Dur : 092 ms QT Int : 374 ms P-R-T Axes : 062 062 056 degrees QTc Int : 450 ms Normal sinus rhythm Low voltage QRS Intra-ventricular conduction delay Possible Left atrial enlargement Borderline ECG When compared with ECG of 13-MAY-2017 17:32, No significant change was found Referred By: Yadira Sandy Electronically Signed By:CHATO ROGERS MD
[2020-03-15] MEDS: oxyCODONE HCl Immed Release 5 MG TABLET PO (09:46)
[2020-03-15] MEDS: diazePAM 5 MG TABLET PO (09:47)
[2020-03-15 10:08] LABS: MANUAL DIFF FLAG NO
[2020-03-15 10:09] LABS: Basophils Absolute Auto 0.1 X10*3/uL (0.0-0.2); Basophils Percent Auto 0.7 % (0-2); Eosinophils Absolute Auto 0.1 X10*3/uL (0.0-0.4); Hematocrit 39.2 % (37-47); Hemoglobin 12.7 g/dl (12.0-16.0); Imm Gran Abs Auto 0.01 X10*3/uL (0.00-0.03); Imm Gran Pct Auto 0.1 % (0.0-0.4); Lymphocytes Absolute Auto 1.6 X10*3/uL (1.2-4.9); Lymphocytes Percent Auto 22.9 % (20-40); Mean Corpuscular HGB Conc 32.4 g/dl (31.0-35.0); Mean Corpuscular Hemoglobin 27.9 pg (27.0-33.0); Mean Platelet Volume 10.7 fL (9.4-12.3); Monocytes Absolute Auto 0.4 X10*3/uL (0.1-1.2); Monocytes Percent Auto 5.3 % (2-11); Neutrophils Absolute Auto 4.8 X10*3/uL (2.0-8.3); Platelet Count 303 X10*3/uL (160-400); Red Blood Count 4.56 X10*6/uL (4.20-5.50); Red Cell Distribution Width 13.2 % (11.0-16.0); White Blood Count 6.9 X10*3/uL (4.8-10.8)
[2020-03-15] MEDS: ondansetron HCL 4 MG/2 ML VIAL IVPUSH (10:21)
[2020-03-15 10:22] LABS: D Dimer < 200 NG/ML
[2020-03-15 10:33] LABS: Anion Gap 13 (12-20); Blood Urea Nitrogen 17 mg/dL (9-16); Calcium 8.2 mg/dL (8.4-10.2); Carbon Dioxide 21 mmol/L (22-29); Chloride 104 mmol/L (96-108); Creatinine Clr Calc Pharmacy 101.2; Estimated Glomerular Filt Rate > 60; Glucose Random 105 mg/dL (60-115); Potassium 5.3 mmol/l (3.3-5.1); Sodium 133 mmol/L (135-145)
[2020-03-15 10:34] LABS: Alanine Aminotransferase 10 U/L (0-31); Albumin Level 3.8 g/dL (3.5-5.0); Alkaline Phosphatase 71 U/L (39-117); Aspartate Amino Transferase 14 U/L (5-31); Bilirubin Direct < 0.2 mg/dL (0.0-0.5); Bilirubin Total 0.2 mg/dL (0.0-1.0); Lipase 34 U/L (8-78); Magnesium 1.8 mg/dL (1.6-2.6)
--- NOTE | 2020-03-15 10:34 | CT_ITS ---
EXAMINATION: CT CHEST WITHOUT CONTRAST CLINICAL INFORMATION: Right-sided pain. Prior history incomplete small bowel obstruction. COMPARISON: CT abdomen and pelvis 03/05/2020. TECHNIQUE: Multidetector volumetric CT imaging of the chest was done. Axial MIP volume rendering provided. Sagittal and coronal reformatted images were obtained. No intravenous contrast. CT abdomen and pelvis also performed, described in separate report. This CT examination was performed using dose optimization techniques as appropriate, variously including the following: *Automated exposure control *Adjustment of mA and/or kV according to patient size (this includes techniques or standardized protocols for targeted exams where dose is matched to indication/reason for exam; i.e. extremities or head) *Use of iterative reconstruction technique DLP: 369 mGy-cm FINDINGS: LUNGS: The central airways are clear and there is no endobronchial lesion or bronchiectasis. There is no lobar or segmental airspace consolidation. No patchy groundglass opacities. There is minor disc atelectasis left anterior lateral base. There may be a linear scar versus an accessory fissure lateral right lower lobe. MEDIASTINUM: No hilar or mediastinal adenopathy. Heart size normal. No pericardial effusion. Thoracic aorta normal in caliber. PLEURA: There is no pleural effusion. No pleural mass or thickening. AXILLA: No lymphadenopathy. UPPER ABDOMEN: CT abdomen and pelvis described in separate report. OSSEOUS STRUCTURES: Unremarkable. CT/CT chest wo con IMPRESSION: 1. No airspace consolidation or groundglass opacity or effusion. 2. Thoracic aorta normal in caliber. No adenopathy. No pericardial effusion. 3. CT abdomen and pelvis described in separate report.
--- NOTE | 2020-03-15 10:34 | CT_ITS ---
EXAMINATION: CT ABDOMEN AND PELVIS WITHOUT CONTRAST CLINICAL INFORMATION: Right flank pain. Recent concern for incomplete small bowel obstruction. COMPARISON: CT chest noncontrast 03/15/2020, CT abdomen with contrast 03/05/2020. TECHNIQUE: Multidetector volumetric imaging was performed from the superior aspect of the liver through the pubic symphysis. Sagittal and coronal reformatted images were obtained on the technologist's workstation. No oral or intravenous contrast. CT chest described in separate report. This CT examination was performed using dose optimization techniques as appropriate, variously including the following: *Automated exposure control *Adjustment of mA and/or kV according to patient size (this includes techniques or standardized protocols for targeted exams where dose is matched to indication/reason for exam; i.e. extremities or head) *Use of iterative reconstruction technique DLP: 773 mGy-cm FINDINGS: LUNG BASES: No infiltrate or effusion. Minor subsegmental disc atelectasis left anterior lateral base. Probable accessory fissure versus linear scar right lateral lower lobe. LIVER, GALLBLADDER, AND BILIARY TREE: The liver is normal in size, shape, and attenuation. No focal hepatic lesion or biliary ductal dilatation is present. The gallbladder is unremarkable with no evidence of radiopaque gallstones, gallbladder wall thickening, or obvious pericholecystic inflammatory changes. PANCREAS: There is subtle decreased attenuation in the mid and anterior pancreatic head and neck and possibly mid body better appreciated on current study. There is no pancreatic ductal distention or peripancreatic inflammatory changes. No retroperitoneal effusion. SPLEEN: Unremarkable. ADRENAL GLANDS: Unremarkable. KIDNEYS AND URETERS: The kidneys are normal in size, shape, and attenuation. No hydronephrosis, hydroureter, or calculi seen. No perinephric stranding. BLADDER: Unremarkable. GASTROINTESTINAL TRACT: There is no obstruction or inflammatory changes in the bowel or adjacent mesentery. The appendix is normal. Moderate stool is present throughout the colon. Small bowel distention noted on recent exam 03/05/2020 is not demonstrated on current study. There is no ascites or fluid collection. ABDOMINAL WALL: No significant hernia is appreciated. LYMPH NODES: No lymphadenopathy. VASCULAR: Unremarkable. PELVIC VISCERA: Unremarkable. OSSEOUS STRUCTURES: Unremarkable. Result called and discussed with Dr. Sandy in the Emergency Department at [address]/CT abdomen pelvis wo con IMPRESSION: 1. Decreased attenuation pancreatic head and neck and possibly mid body pancreas better appreciated on current exam. No peripancreatic stranding or retroperitoneal effusion. No biliary or pancreatic ductal distention. No visible gallstones. Finding may be related to early pancreatitis. Recommend clinical and laboratory correlation. If discordant, then further evaluation with MRI abdomen without and with gadolinium would be recommended to assess for occult pancreatic mass. Right upper quadrant ultrasound may be helpful to assess for biliary tract calculi. 2. No large or small bowel obstruction or ascites. Normal appendix. 3. No hydronephrosis, perinephric stranding, or calculi.
[2020-03-15 10:40] LABS: Glucose Urine UA NEG (NEG); Leukocyte Esterase Urine NEG (NEG); Nitrite Urine NEG (NEG); PH 5.5 (5.0-8.0); Specific Gravity - Urine >= 1.030 (1.005-1.025); Urine Blood NEG (NEG); Urine Ketones NEG (NEG); Urine Protein NEG (NEG-TRACE)
[2020-03-15 10:40] LABS: Troponin-I High Sensitivity < 3.5 ng/L (<3.5-17.0)
[2020-03-15 10:41] LABS: Appearance Urine HAZY; Color Urine YELLOW
[2020-03-15 11:27] VITALS: BP 136/86; PULSE 84; RESP 16; TEMP 36.9; O2SAT 100
[2020-03-15] MEDS: 0.9 % Sodium Chloride 1,000 ML 999 ML IVCONT (11:46)
[2020-03-15 11:54] LABS: UPreg QC Valid YES; Urine Pregnancy NEGATIVE (NEGATIVE)
== END 2020-03-15 14:00 | disposition home or self-care (01) ==
PROVIDERS: Emergency Provider Emergency Medicine; PCP Internal Medicine
DX: R10.9 Unspecified abdominal pain (principal); M54.5 Low back pain; R07.81 Pleurodynia; M54.6 Pain in thoracic spine; Z79.899 Other long term (current) drug therapy
CPT/HCPCS: 36415; 71250; 74176; 80048; 80076; 81003; 81025; 83690; 83735; 84484; 85025; 85379; 93005; 96361; 96374; 99284; J2405

== ENCOUNTER 2020-03-21 15:03 | Outpatient (REF) | payer OTHER, SELFPAY ==
[2020-03-21 17:17] LABS: Anion Gap 15 (12-20); Blood Urea Nitrogen 18 mg/dL (9-16); Carbon Dioxide 24 mmol/L (22-29); Chloride 105 mmol/L (96-108); Estimated Glomerular Filt Rate > 60; Potassium 4.5 mmol/l (3.3-5.1); Sodium 139 mmol/L (135-145)
== END 2020-03-21 15:04 | disposition home or self-care (01) ==
LOC: HO.HMGCLDS 15:03
PROVIDERS: PCP Internal Medicine; Visit Provider Internal Medicine
DX: E87.5 Hyperkalemia (principal)
CPT/HCPCS: 80051; 82565; 84520

== ENCOUNTER 2020-03-28 07:33 | Outpatient (REF) | payer OTHER, SELFPAY ==
--- NOTE | 2020-03-28 07:36 | MM_ITS ---
EXAMINATION: MM SCREENING DIGITAL BREAST TOMOSYNTHESIS, BILATERAL CLINICAL INFORMATION: Screening. Asymptomatic. The lifetime risk of breast cancer based on the Tyrer-Cuzick Model is 8%. COMPARISON: Mammography: 03/08/2019, 09/04/2018, 09/11/2017 TECHNIQUE: Digital breast tomosynthesis is performed in both the craniocaudal and mediolateral oblique views along with computer-aided detection (CAD). Synthesized 2D images are generated from the tomosynthesis. FINDINGS: There are scattered areas of fibroglandular density (ACR BI-RADS breast composition Category b). There is denser breast tissue composition in the upper outer quadrants. There is no developing density or interval mass or architectural abnormality. No abnormal calcifications. The axilla and skin contours are unremarkable. No significant changes. MM/MM tomosynthesis screening BI IMPRESSION: No mammographic evidence of malignancy. ASSESSMENT: BI-RADS 1: Negative RECOMMENDATION: Routine annual mammography screening. This patient's information was entered into a reminder system with a target due date for their next mammogram.
== END 2020-03-28 07:34 | disposition home or self-care (01) ==
LOC: HO.MAMMO 07:33
PROVIDERS: PCP Internal Medicine; Visit Provider Internal Medicine
DX: Z12.31 Encounter for screening mammogram for malignant neoplasm of breast (principal)
CPT/HCPCS: 77063; 77067

== ENCOUNTER 2020-04-25 08:04 | Outpatient (REF) | payer OTHER, SELFPAY | END 2020-04-25 08:05 | disposition home or self-care (01) | LOC: HO.MRI 08:04 | PROVIDERS: Visit Provider Internal Medicine | DX: Z13.89 Encounter for screening for other disorder (principal) ==

== ENCOUNTER 2020-05-09 07:10 | Day surgery (SDC) | payer OTHER, SELFPAY ==
[2020-05-03 11:19] VITALS: BMI 33.5
[2020-05-08 09:46] VITALS: BMI 33.5
--- NOTE | 2020-05-08 10:12 | P.CONAN_ITS ---
Documented by User: Mindy Strauss 05/08/20 10:34 HPI - Anesthesia Eval Consult details Narrative: 45yo F for PV Sling Removal with Fascial Sling Replacement S/P PV sling 09/2019 with GA-LMA 4 02/2020 [facility] [place] for partial bowel obstruction. Resolved wihout surgical intervention PMFSH Past Medical History Medical History Abnormal CT of the abdomen Arthritis Back pain Bipolar II disorder Dyspnea Fibromyalgia History of [place] (myocardial infarction) History of urinary incontinence Hospital discharge follow-up Hyperkalemia Lab test negative for COVID-19 virus Obesity Optic neuritis DULCE (obstructive sleep apnea) Partial bowel obstruction Rectal prolapse Small bowel obstruction Surgical History Surgical History H/O cystoscopy (06/08/19) History of pubovaginal sling (10/19/19) History of total left knee replacement (TKR) (11/2016) History of total right knee replacement (06/2016) Social History Social History Household Members: Family Housing: House Alcohol intake: unknown Smoking Status: Current every day smoker Tobacco Type: Cigarette Second Hand Smoke Exposure: No Use of substances other than those prescribed or required for medical reasons: Yes Substance Use Type: Marijuana Advance Directives: No Advance Directives Information Provided: No Advance Directives on File: No service: No Current occupational status: unemployed Meds Allergies Allergy/AdvReac Type Severity Reaction Status Date / Time Penicillins Allergy Severe ITCHING/SWE Verified 03/21/20 14:31 LLING doxycycline [DOXYCYCLINE] Allergy Intermediate SEVERE Verified 03/21/20 14:31 ITCHING, pruritis sulfamethoxazole [Bactrim] Allergy Unknown Unknown Verified 03/21/20 14:31 Home Medications Medication Instructions Recorded Confirmed Type aripiprazole 5 mg tablet 5 mg PO DAILY 01/26/20 05/03/20 History bupropion HCl 300 mg 24 hr tablet, 300 mg PO DAILY 01/26/20 05/03/20 History extended release carbamazepine 200 mg tablet 200 mg PO QID 01/26/20 05/03/20 History cholecalciferol (vitamin D3) 50 50 mcg PO BEDTIME 01/26/20 05/03/20 History mcg (2,000 unit) capsule clonazepam 1 mg tablet 1 mg PO TID PRN 01/26/20 05/03/20 History fluoxetine 20 mg capsule 40 mg PO DAILY 01/26/20 05/03/20 History glycopyrrolate 1 mg tablet 1 mg PO TID 01/26/20 05/03/20 History melatonin 10 mg capsule 10 mg BEDTIME 01/26/20 05/03/20 History clindamycin phosphate 1 % lotion 1 applic TOPICAL DAILY 02/16/20 05/03/20 History mometasone 0.1 % topical ointment 1 applic TOPICAL DAILY 02/16/20 05/03/20 History norethindrone acetate 5 mg tablet 5 mg PO DAILY 02/16/20 05/03/20 History primidone 50 mg tablet 100 mg PO TID 02/16/20 05/03/20 History tretinoin 0.1 % topical cream 1 applic TOPICAL BEDTIME PRN 02/16/20 05/03/20 History Exam Exam Date and Time: May 08, 2020 1012 Height,Weight and Vital Signs: Height 5 ft 2 in Weight 83.007 kg Pertinent Lab Results Pertinent Lab Results: EKG 02/2020 Normal sinus rhythm Low voltage QRS Intra-ventricular conduction delay Possible Left atrial enlargement Documented by User: Aliyah Lockhart 05/09/20 08:30 [facility] Past Medical History Medical History Abnormal CT of the abdomen Arthritis Back pain Bipolar II disorder Dyspnea Fibromyalgia History of [place] (myocardial infarction) History of urinary incontinence Hospital discharge follow-up Hyperkalemia Lab test negative for COVID-19 virus Obesity Optic neuritis DULCE (obstructive sleep apnea) Partial bowel obstruction Rectal prolapse Small bowel obstruction Surgical History Surgical History H/O cystoscopy (06/08/19) History of pubovaginal sling (10/19/19) History of total left knee replacement (TKR) (11/2016) History of total right knee replacement (06/2016) Social History Social History Household Members: Family Housing: House Alcohol intake: unknown Smoking Status: Current every day smoker Tobacco Type: Cigarette Second Hand Smoke Exposure: No Use of substances other than those prescribed or required for medical reasons: Yes Substance Use Type: Marijuana Advance Directives: No Advance Directives Information Provided: No Advance Directives on File: No service: No Current occupational status: unemployed Meds Allergies Allergy/AdvReac Type Severity Reaction Status Date / Time Penicillins Allergy Severe ITCHING/SWE Verified 03/21/20 14:31 LLING doxycycline [DOXYCYCLINE] Allergy Intermediate SEVERE Verified 03/21/20 14:31 ITCHING, pruritis sulfamethoxazole [Bactrim] Allergy Unknown Unknown Verified 03/21/20 14:31 Home Medications Medication Instructions Recorded Confirmed Type aripiprazole 5 mg tablet 5 mg PO DAILY 01/26/20 05/03/20 History bupropion HCl 300 mg 24 hr tablet, 300 mg PO DAILY 01/26/20 05/03/20 History extended release carbamazepine 200 mg tablet 200 mg PO QID 01/26/20 05/03/20 History cholecalciferol (vitamin D3) 50 50 mcg PO BEDTIME 01/26/20 05/03/20 History mcg (2,000 unit) capsule clonazepam 1 mg tablet 1 mg PO TID PRN 01/26/20 05/03/20 History fluoxetine 20 mg capsule 40 mg PO DAILY 01/26/20 05/03/20 History glycopyrrolate 1 mg tablet 1 mg PO TID 01/26/20 05/03/20 History melatonin 10 mg capsule 10 mg BEDTIME 01/26/20 05/03/20 History clindamycin phosphate 1 % lotion 1 applic TOPICAL DAILY 02/16/20 05/03/20 History mometasone 0.1 % topical ointment 1 applic TOPICAL DAILY 02/16/20 05/03/20 History norethindrone acetate 5 mg tablet 5 mg PO DAILY 02/16/20 05/03/20 History primidone 50 mg tablet 100 mg PO TID 02/16/20 05/03/20 History tretinoin 0.1 % topical cream 1 applic TOPICAL BEDTIME PRN 02/16/20 05/03/20 History
[2020-05-09] VITALS (18 sets, daily range): BP systolic 114–152; BP diastolic 47–109; PULSE 79–101; RESP 16–20; TEMP 36.1–36.8; O2SAT 95–100
--- NOTE | 2020-05-09 07:30 | MHC.SHP ---
Pre-Procedural Eval Section A The patient is an INPATIENT: No The History & Physical has been completed within 30 days and I have reviewed it.: Yes Section B Chief Complaint: Bladder Dysfunction, Stress Incontinence Allergies: Allergies Allergy/AdvReac Type Severity Reaction Status Date / Time Penicillins Allergy Severe ITCHING/SWE Verified 03/21/20 14:31 LLING doxycycline [DOXYCYCLINE] Allergy Intermediate SEVERE Verified 03/21/20 14:31 ITCHING, pruritis sulfamethoxazole [Bactrim] Allergy Unknown Unknown Verified 03/21/20 14:31 Plan Diagnosis/Plan: Unchanged I have reviewed the history and physical and performed a pertinent physical examination on my patient. No changes have occurred unless specified.
[2020-05-09 08:04] LABS: UPreg QC Valid YES; Urine Pregnancy NEGATIVE (NEGATIVE)
[2020-05-09] MEDS: Lactated Ringers 1,000 ML 100 ML IVCONT (08:47)
[2020-05-09] MEDS: levoFLOXacin/D5W 500 MG/100 ML PIGGYBACK 100 MG IV (09:13)
--- NOTE | 2020-05-09 09:30 | P.CONAN_ITS ---
[facility] Past Medical History Medical History Abnormal CT of the abdomen Arthritis Back pain Bipolar II disorder Dyspnea Fibromyalgia History of [place] (myocardial infarction) History of urinary incontinence Hospital discharge follow-up Hyperkalemia Lab test negative for COVID-19 virus Obesity Optic neuritis DULCE (obstructive sleep apnea) Partial bowel obstruction Rectal prolapse Small bowel obstruction Surgical History Surgical History H/O cystoscopy (06/08/19) History of pubovaginal sling (10/19/19) History of total left knee replacement (TKR) (11/2016) History of total right knee replacement (06/2016) Social History Social History Household Members: Family Housing: House Alcohol intake: unknown Smoking Status: Current every day smoker Tobacco Type: Cigarette Second Hand Smoke Exposure: No Use of substances other than those prescribed or required for medical reasons: Yes Substance Use Type: Marijuana Advance Directives: No Advance Directives Information Provided: No Advance Directives on File: No service: No Current occupational status: unemployed Meds Allergies Allergy/AdvReac Type Severity Reaction Status Date / Time Penicillins Allergy Severe ITCHING/SWE Verified 03/21/20 14:31 LLING doxycycline [DOXYCYCLINE] Allergy Intermediate SEVERE Verified 03/21/20 14:31 ITCHING, pruritis sulfamethoxazole [Bactrim] Allergy Unknown Unknown Verified 03/21/20 14:31 Home Medications Medication Instructions Recorded Confirmed Type aripiprazole 5 mg tablet 5 mg PO DAILY 01/26/20 05/03/20 History bupropion HCl 300 mg 24 hr tablet, 300 mg PO DAILY 01/26/20 05/03/20 History extended release carbamazepine 200 mg tablet 200 mg PO QID 01/26/20 05/03/20 History cholecalciferol (vitamin D3) 50 50 mcg PO BEDTIME 01/26/20 05/03/20 History mcg (2,000 unit) capsule clonazepam 1 mg tablet 1 mg PO TID PRN 01/26/20 05/03/20 History fluoxetine 20 mg capsule 40 mg PO DAILY 01/26/20 05/03/20 History glycopyrrolate 1 mg tablet 1 mg PO TID 01/26/20 05/03/20 History melatonin 10 mg capsule 10 mg BEDTIME 01/26/20 05/03/20 History clindamycin phosphate 1 % lotion 1 applic TOPICAL DAILY 02/16/20 05/03/20 History mometasone 0.1 % topical ointment 1 applic TOPICAL DAILY 02/16/20 05/03/20 History norethindrone acetate 5 mg tablet 5 mg PO DAILY 02/16/20 05/03/20 History primidone 50 mg tablet 100 mg PO TID 02/16/20 05/03/20 History tretinoin 0.1 % topical cream 1 applic TOPICAL BEDTIME PRN 02/16/20 05/03/20 His tory Exam Exam Date and Time: May 09, 2020 0930 Height,Weight and Vital Signs: Height 5 ft 2 in Weight 83.007 kg Last Vital Signs Temp 98.2 F 05/09/20 08:13 Pulse 96 05/09/20 08:13 Resp 18 05/09/20 08:13 BP 137/87 05/09/20 08:13 Pulse Ox 96 05/09/20 08:13 Pertinent Lab Results Pertinent Lab Results: Laboratory Tests 05/09/20 07:50 Urine Test NEGATIVE Airway Mallampati Class: II TM Dist: >3cm Neck ROM: Full Assessment and Plan Assessment Anesthesia Assessment: Anesthesia Plan Discussed and Chart Reviewed Final Anesthetic Review NPO: Yes ASA Class: II Final Preanesthetic Review: No Changes in Pt Med Stat, Meds/Allgs Chart Reviewed, Consent Obtained/Reviewed and Anes Risks/Benef Reviewed Patient Risk: Low Procedure Risk: Low Assessment/Block/Sedation in SS: Assess/Block/Sedation-SS Anesthetic Plan Anesthetic Plan: GA Disposition: Standard PACU
--- NOTE | 2020-05-09 10:45 | PM.OP ---
Brief Operative Note Date of Service: 05/09/20 Pre-op diagnosis: urinary incontinence DEON female Post-op diagnosis: same Procedure: removal of sling , placement of sling Surgeon: Willian Hendricks III, MD Anesthesia: GLMA Diecast Machine Operator: Paulina Mckenna Estimated blood loss (mL): 300 Pathology: none sent (sling) Condition: stable Disposition: same day
[2020-05-09] MEDS: LORazepam 2 MG/ML VIAL 0.5 MG IVPUSH (11:03)
[2020-05-09] MEDS: fentaNYL citrate/PF 100 MCG/2 ML VIAL 50 MCG IVPUSH ×4 (11:16→12:51)
[2020-05-09] MEDS: oxyCODONE HCl Immed Release 5 MG TABLET PO ×2 (11:55→13:00)
--- NOTE | 2020-05-09 14:33 | HO.POSTANES ---
Post Anesthesia Evaluation Post Anesthesia Evaluation Vital Signs: Vital Signs Temp Pulse Resp BP Pulse Ox 05/09/20 13:46 97 F 88 16 128/76 99 05/09/20 13:15 79 17 120/71 100 05/09/20 12:51 20 05/09/20 12:50 85 16 114/47 L 95 05/09/20 12:45 82 16 115/57 L 97 05/09/20 12:30 90 16 136/64 98 05/09/20 12:15 93 16 150/70 H 98 05/09/20 12:00 96 16 138/59 L 100 05/09/20 11:40 97 16 144/77 H 99 05/09/20 11:35 101 H 16 138/81 98 05/09/20 11:26 98 16 152/89 H 97 05/09/20 11:21 92 16 135/79 95 05/09/20 11:16 98 16 138/108 H 95 05/09/20 11:10 97 20 133/109 H 95 05/09/20 11:05 98 20 133/72 95 05/09/20 11:00 86 16 115/85 95 05/09/20 10:55 97.7 F 96 16 117/82 95 05/09/20 08:13 98.2 F 96 18 137/87 96 Anesthesia: General Mental Status: Awake Pain Control: Satisfactory Nausea/Vomiting: None Hydration: Adequate Anesthesia-Related Issues: No Anes. Related Issues
--- NOTE | 2020-05-09 16:34 | OP_ITS ---
SURGEON: Willian Hendricks III, MD PREOPERATIVE DIAGNOSIS: Female stress urinary incontinence. POSTOPERATIVE DIAGNOSIS: Female stress urinary incontinence. PROCEDURE PERFORMED: ESTIMATED BLOOD LOSS: 200 mL. COMPLICATIONS: None. ANESTHESIA: ASSISTANTS: Paulina Mckenna PA-C. SPECIMENS: PROCEDURES PERFORMED: 1. Removal of mesh pubovaginal sling. 2. Placement of pubovaginal sling utilizing the patient's own fascia. PATHOLOGY: Numerical Control Drill Press Operator samples of sling sent. DRAINS: 20-Georgian Moore catheter. CONDITION: Good. DESCRIPTION OF PROCEDURE: The patient was taken to the operating room. After adequate anesthesia was obtained, a time-out done demonstrating correct patient, correct procedure. The patient was placed in dorsal lithotomy position. Had a Moore catheter placed as well as vaginal retractors and a Raven retractor. The patient underwent injection of local in the anterior vaginal wall. Midline incision was made. Sharp dissection was used heading towards the endopelvic fascia. Sling was encountered, usually identified because of the blue color of it. The patient had sling dissected out, cut in the midline, then dissected towards the endopelvic fascia bilaterally with the material being removed. The patient had the vagina packed. Subsequently a Pfannenstiel incision was made, carried down to level of fascia. A strip of fascia approximately 6 cm x 1.5 cm was taken after elevating the abdominal wall fascia. The [place] clamps were passed bilaterally from the abdominal incision into the vaginal incision. Cystoscopy was negative. The patient then had the sling elevated into place after putting a midline suture through it. The sling was sewn in place. The Maxon sutures on either end of the sling were then tunneled through the inferior leaf of fascia and the fascia closed. The sling was then adjusted approximately 1 cm between the fascia and the knot after the Moore was used to pull the urethra and bladder neck down into neutral position. The patient had the knot secured. Subsequently, the abdominal wall incision was closed in 3 layers. The vaginal incision was also closed. Vaginal pack was placed. The patient had a Moore catheter in place. She was taken from the operating room to the recovery room in good condition. MD KATE Loredo III/[facility] / [id number]
== END 2020-05-09 14:35 | disposition home or self-care (01) ==
PROVIDERS: Nurse Practitioner; PCP Internal Medicine; Visit Provider Urology
PROC: (CPT 57287; principal; 2020-05-09 09:20)
DX: N31.9 Neuromuscular dysfunction of bladder, unspecified (principal); N39.3 Stress incontinence (female) (male); Z88.0 Allergy status to penicillin; Z88.2 Allergy status to sulfonamides
CPT/HCPCS: 57287; 81025; 88304; 88305; J0131; J1100; J1580; J1885; J1940; J1956; J2060; J2250; J2405; J3010

== ENCOUNTER → 2020-05-10 10:19 | Outpatient (BNVA) | payer OTHER, SELFPAY | PROVIDERS: Visit Provider Urology | DX: Z48.00 Encounter for change or removal of nonsurgical wound dressing (principal) | CPT/HCPCS: 99212 ==

== ENCOUNTER → 2020-05-25 09:57 | Outpatient (BNVA) | payer OTHER, SELFPAY | PROVIDERS: Visit Provider Urology | DX: Z09 Encounter for follow-up examination after completed treatment for conditions other than malignant neoplasm (principal); Z87.448 Personal history of other diseases of urinary system | CPT/HCPCS: 99212 ==

== ENCOUNTER 2020-06-17 12:50 | Emergency (ER) | payer OTHER, SELFPAY ==
--- NOTE | ~2020-06-17 | CT_ITS ---
EXAMINATION: CT ABDOMEN AND PELVIS WITHOUT CONTRAST CLINICAL INFORMATION: Right lower abdominal pain status post bladder sling surgery COMPARISON: 03/15/2020 TECHNIQUE: Multidetector volumetric imaging was performed from the superior aspect of the liver through the pubic symphysis. Sagittal and coronal reformatted images were obtained on the technologist's workstation. This CT examination was performed using dose optimization techniques as appropriate, variously including the following: *Automated exposure control *Adjustment of mA and/or kV according to patient size (this includes techniques or standardized protocols for targeted exams where dose is matched to indication/reason for exam; i.e. extremities or head) *Use of iterative reconstruction technique DLP: 830 mGy-cm FINDINGS: LUNG BASES: The visualized lung bases are unremarkable. LIVER, GALLBLADDER, AND BILIARY TREE: The liver is normal in size, shape, and attenuation. No focal hepatic lesion or biliary ductal dilatation is present. Gallbladder mildly distended in the fasting state. PANCREAS: Focal fatty infiltration pancreatic head redemonstrated. No pancreatic or peripancreatic inflammation or mass is evident. SPLEEN: Unremarkable. ADRENAL GLANDS: Unremarkable. KIDNEYS AND URETERS: The kidneys are normal in size, and shape. Medullary nephrocalcinosis suspected.. No hydronephrosis, hydroureter, or discrete calculi seen. No perinephric stranding. BLADDER: Unremarkable. Mild stranding present within the perivesicular extraperitoneal fat, likely postsurgical in nature. GASTROINTESTINAL TRACT: No intestinal obstruction or inflammation. Scattered sigmoid colonic diverticula without evidence of diverticulitis. ABDOMINAL WALL: Stranding present within the lower ventral abdominal wall subcutaneous fat, likely postsurgical, with accompanying skin thickening present. LYMPH NODES: Normal. VASCULAR: Aorta is atherosclerotic but normal caliber. PELVIC VISCERA: Uterus and ovaries unremarkable. OSSEOUS STRUCTURES: No acute or suspicious osseous abnormalities. Sacral neurostimulator present. CT/CT abdomen pelvis wo con IMPRESSION: * There is stranding within the lower abdominal ventral subcutaneous fat with overlying skin thickening. Stranding extends to the lower rectus abdominis, and within the prevesicular extraperitoneal fat. This is likely postsurgical in nature. No fluid collections are identified to suggest abscess formation. * Scattered sigmoid colonic diverticula without evidence of diverticulitis. * Mild medullary nephrocalcinosis .
[2020-06-17 12:59] VITALS: BP 191/121; PULSE 118; RESP 20; TEMP 36.7; O2SAT 98; BMI 39.3
[2020-06-17 16:12] LABS: MANUAL DIFF FLAG NO
[2020-06-17 16:13] LABS: Basophils Absolute Auto 0.1 X10*3/uL (0.0-0.2); Basophils Percent Auto 0.5 % (0-2); Eosinophils Absolute Auto 0.1 X10*3/uL (0.0-0.4); Eosinophils Percent Auto 0.9 % (0-4); Hematocrit 38.7 % (37-47); Hemoglobin 12.2 g/dl (12.0-16.0); Imm Gran Abs Auto 0.03 X10*3/uL (0.00-0.03); Imm Gran Pct Auto 0.3 % (0.0-0.4); Lymphocytes Absolute Auto 2.3 X10*3/uL (1.2-4.9); Lymphocytes Percent Auto 21.5 % (20-40); Mean Corpuscular HGB Conc 31.5 g/dl (31.0-35.0); Mean Corpuscular Volume 82.5 fL (80-98); Mean Platelet Volume 10.4 fL (9.4-12.3); Monocytes Absolute Auto 0.6 X10*3/uL (0.1-1.2); Monocytes Percent Auto 5.8 % (2-11); Neutrophils Absolute Auto 7.7 X10*3/uL (2.0-8.3); Platelet Count 379 X10*3/uL (160-400); Red Blood Count 4.69 X10*6/uL (4.20-5.50); Red Cell Distribution Width 13.7 % (11.0-16.0); White Blood Count 10.9 X10*3/uL (4.8-10.8)
[2020-06-17 16:21] LABS: Glucose Urine UA NEG (NEG); Leukocyte Esterase Urine NEG (NEG); Nitrite Urine NEG (NEG); PH 5.5 (5.0-8.0); Specific Gravity - Urine >= 1.030 (1.005-1.025); Urine Blood NEG (NEG); Urine Ketones NEG (NEG); Urine Protein NEG (NEG-TRACE)
[2020-06-17 16:28] LABS: Appearance Urine CLEAR; Color Urine YELLOW
[2020-06-17 16:37] LABS: Anion Gap 13 (12-20); Blood Urea Nitrogen 15 mg/dL (9-16); Calcium 8.6 mg/dL (8.4-10.2); Carbon Dioxide 22 mmol/L (22-29); Chloride 108 mmol/L (96-108); Creatinine Clr Calc Pharmacy 109.8; Estimated Glomerular Filt Rate > 60; Glucose Random 97 mg/dL (60-115); Potassium 4.2 mmol/L (3.3-5.1); Sodium 139 mmol/L (135-145)
[2020-06-17] MEDS: Acetaminophen 325 MG TABLET 650 MG PO (16:56)
--- NOTE | 2020-06-17 18:37 | ED.ABDPAIN ---
HPI - Abdominal Pain General Chief Complaint: Abdominal Pain Stated Complaint: [facility]ERNIA Time Seen by Provider: 06/17/20 18:37 Source: patient Mode of arrival: ambulatory Limitations: no limitations History of Present Illness HPI narrative: Patient is status post pubovaginal sling operation on 10/15 was admitted here on 03/17 for partial small-bowel obstruction and mesh was removed in 05/18 comes here for increasing pain for last few days at right suprapubic area no nausea no vomiting no urinary complaints patient has incontinence as such patient feels looser outpouching on the right lower quadrant when she stands up no fever Related Data Home Medications Medication Instructions Recorded Confirmed aripiprazole 5 mg tablet 5 mg PO DAILY 01/26/20 06/14/20 bupropion HCl 300 mg 24 hr tablet, 300 mg PO DAILY 01/26/20 06/14/20 extended release carbamazepine 200 mg tablet 200 mg PO QID 01/26/20 06/14/20 cholecalciferol (vitamin D3) 50 50 mcg PO BEDTIME 01/26/20 06/14/20 mcg (2,000 unit) capsule clonazepam 1 mg tablet 1 mg PO TID PRN 01/26/20 06/14/20 fluoxetine 20 mg capsule 40 mg PO DAILY 01/26/20 06/14/20 glycopyrrolate 1 mg tablet 1 mg PO TID 01/26/20 06/14/20 melatonin 10 mg capsule 10 mg BEDTIME 01/26/20 06/14/20 norethindrone acetate 5 mg tablet 5 mg PO DAILY 02/16/20 06/14/20 primidone 50 mg tablet 100 mg PO TID 02/16/20 06/14/20 imipramine HCl 10 mg tablet 10 mg PO BID 05/25/20 06/14/20 sertraline PO DAILY 06/14/20 06/14/20 Previous Rx's Medication Instructions Recorded aspirin 81 mg tablet,delayed 81 mg PO DAILY #90 tab 03/27/20 release ketoconazole 2 % topical cream 1 appl TOPICAL DAILY 3 Days #60 g 06/14/20 cephalexin 500 mg PO Q6H 10 Days #40 cap 06/17/20 levofloxacin 500 mg PO DAILY 10 Days #10 tab 06/17/20 oxycodone 5 mg PO Q6H PRN #20 tab 06/17/20 Allergies Allergy/AdvReac Type Severity Reaction Status Date / Time Penicillins Allergy Severe ITCHING/SWE Verified 06/14/20 12:42 LLING doxycycline [DOXYCYCLINE] Allergy Intermediate SEVERE Verified 06/14/20 12:42 ITCHING, pruritis sulfamethoxazole [Bactrim] Allergy Unknown Unknown Verified 06/14/20 12:42 Review of Systems Review of Systems Constitutional : No Weight loss, No Fever, No Chills ENT/Mouth : No sore throat, No Rhinorrhea Eyes: No Eye Pain, No Swelling Cardiovascular : No Chest Pain, no palpitations Respiratory : No Cough, No Sputum, no shortness of breath Gastrointestinal : no Nausea, No Vomiting, No Diarrhea, + abdominal Pain, no black stools Genitourinary : No Dysuria, No Urinary Frequency Musculoskeletal : No joint pain, No Myalgias, No Joint Swelling Skin : No Skin Lesions, No rash Neuro : No Weakness, No Numbness, No Dizziness, No Headache Psych : No Anxiety/Panic, No Depression Heme/Lymph: No Bruising, No Lymphadenopathy Endocrine : No Polyuria, No Polydipsia All other systems reviewed and are negative Physical Exam Vital Signs: Vital Signs: Last Vital Signs Temp 98.3 F 06/17/20 19:29 Pulse 95 06/17/20 19:29 Resp 18 06/17/20 19:29 BP 130/85 06/17/20 19:29 Pulse Ox 98 06/17/20 19:29 Body Mass Index 39.3 Appearance: Alert. Oriented X3. No acute distress. Eyes: Pupils equal, round and reactive to light. ENT: Pharynx normal. Neck: Normal inspection. Neck supple. CVS: Normal heart rate and rhythm. Pulses normal. Respiratory: No respiratory distress. Breath sounds normal. Abdomen: Soft slight tenderness right suprapubic area without any significant mass no hernia palpable. Bowel sounds are present, no mass palpable, no CVA tenderness Skin: Skin warm and dry. Normal skin color. Normal skin turgor. Extremities: No lower extremity edema. Neuro: Oriented X 3. No motor deficit. No sensory deficit. MDM - Abdominal Pain MDM Narrative Medical decision making narrative: Patient with superficial abdominal wall pain postop no signs of any abscess or hernia no local cellulitis appreciated CT scan negative for any fluid collection shows some inflammation case discussed Dr. Anne urologist advised to give antibiotic to the patient and follow-up as outpatient Differential Diagnosis Differential diagnosis: Likely abdominal pain Medical Records Attestation: I reviewed the patient's medical records. Lab Data Attestation: I reviewed the patient's lab results. Result diagrams: 06/17/20 15:55 06/17/20 15:55 Labs: Lab Results 06/17/20 06/17/20 06/17/20 Range/Units 15:55 15:55 16:10 WBC 10.9 H (4.8-10.8) X10*3/uL RBC 4.69 (4.20-5.50) X10*6/uL Hgb 12.2 (12.0-16.0) g/dl Hct 38.7 (37-47) % MCV 82.5 (80-98) fL MCH 26.0 L (27.0-33.0) pg MCHC 31.5 (31.0-35.0) g/dl RDW 13.7 (11.0-16.0) % Plt Count 379 D (160-400) X10*3/uL MPV 10.4 (9.4-12.3) fL Immature Gran % (Auto) 0.3 (0.0-0.4) % Neut % (Auto) 71.0 (45-73) % Lymph % (Auto) 21.5 (20-40) % [place] % (Auto) 5.8 (2-11) % Eos % (Auto) 0.9 (0-4) % Baso % (Auto) 0.5 (0-2) % Lymph # (Auto) 2.3 (1.2-4.9) X10*3/uL [place] # (Auto) 0.6 (0.1-1.2) X10*3/uL Eos # (Auto) 0.1 (0.0-0.4) X10*3/uL Baso # (Auto) 0.1 (0.0-0.2) X10*3/uL Abs Immat Gran (auto) 0.03 (0.00-0.03) X10*3/uL Absolute Neuts (auto) 7.7 (2.0-8.3) X10*3/uL Absolute Nucleated RBC 0.000 (0.0-0.012) X10*3/uL Nucleated RBC % (auto) 0.0 (0.0-0.2) /100WBC Sodium 139 (135-145) mmol/L Potassium 4.2 (3.3-5.1) mmol/L Chloride 108 (96-108) mmol/L Carbon Dioxide 22 (22-29) mmol/L Anion Gap 13 (12-20) BUN 15 (9-16) mg/dL Creatinine 0.72 (0.5-1.4) mg/dL Estim Creat Clear Calc 109.8 Estimated GFR > 60 Random Glucose 97 (60-115) mg/dL Calcium 8.6 (8.4-10.2) mg/dL Urine Color YELLOW Urine Appearance CLEAR Urine pH 5.5 (5.0-8.0) Ur Specific [place] >= 1.030 H (1.005-1.025) Urine Protein NEG (NEG-TRACE) MG/DL Urine Glucose (UA) NEG (NEG) MG/DL Urine Ketones NEG (NEG) MG/DL Urine Blood NEG (NEG) Urine Nitrite NEG (NEG) Ur Leukocyte Esterase NEG (NEG) Discharge Plan Discharge Clinical Impression: Abdominal pain Qualifiers: Abdominal location: right lower quadrant Qualified Code(s): R10.31 - Right lower quadrant pain Patient Disposition: Home, Self-Care Instructions: Cellulitis (ED) Additional Instructions: You have inflammation of the abdominal wall likely after surgery. Take antibiotic as prescribed. Report to the ER/urologist if pain gets worse/fever or not better Prescriptions: New cephalexin 500 mg capsule 500 mg PO Q6H 10 Days Qty: 40 RF: 0 levofloxacin 500 mg tablet 500 mg PO DAILY 10 Days Qty: 10 RF: 0 oxycodone 5 mg tablet 5 mg PO Q6H PRN (Reason: pain) Qty: 20 RF: 0 No Action aspirin 81 mg tablet,delayed release (DR/EC) 81 mg PO DAILY Qty: 90 RF: 0 sertraline PO DAILY RF: 0 ketoconazole 2 % cream 1 appl topical DAILY 3 Days Qty: 60 RF: 0 imipramine HCl 10 mg tablet 10 mg PO BID RF: 0 clonazepam 1 mg tablet 1 mg PO TID PRN (Reason: Skin Cleansing) RF: 0 melatonin 10 mg capsule 10 mg BEDTIME RF: 0 glycopyrrolate 1 mg tablet 1 mg PO TID RF: 0 fluoxetine 20 mg capsule 40 mg PO DAILY RF: 0 aripiprazole 5 mg tablet 5 mg PO DAILY RF: 0 carbamazepine 200 mg tablet 200 mg PO QID RF: 0 bupropion HCl 300 mg tablet extended release 24 hr 300 mg PO DAILY RF: 0 cholecalciferol (vitamin D3) 50 mcg (2,000 unit) capsule 50 mcg PO BEDTIME RF: 0 norethindrone acetate 5 mg tablet 5 mg PO DAILY RF: 0 primidone 50 mg tablet 100 mg PO TID RF: 0 PMFSH Past Medical History Medical History Abnormal CT of the abdomen Arthritis Back pain Bipolar II disorder Dyspnea Fibromyalgia History of [place] (myocardial infarction) History of urinary incontinence Hospital discharge follow-up Hyperkalemia Lab test negative for COVID-19 virus Obesity Optic neuritis Partial bowel obstruction Rectal prolapse Small bowel obstruction Surgical History H/O cystoscopy (06/08/19) History of pubovaginal sling (10/19/19) History of total left knee replacement (TKR) (11/2016) History of total right knee replacement (06/2016) Social History Social History Household Members: Family Housing: House Alcohol intake: never Smoking Status: Former smoker Tobacco Type: Cigarette Smoked in Last 30 Days: No Second Hand Smoke Exposure: No Use of substances other than those prescribed or required for medical reasons: No Substance Use Type: Marijuana Substance Use Frequency: Occasionally Advance Directives: Yes Advance Directives Information Provided: Yes Advance Directives on File: No service: No Current occupational status: unemployed
[2020-06-17 19:29] VITALS: BP 130/85; PULSE 95; RESP 18; TEMP 36.8; O2SAT 98
[2020-06-17] MEDS: clonazePAM 1 MG TABLET PO (19:31)
[2020-06-17] MEDS: levoFLOXacin 500 MG TABLET PO (20:04)
[2020-06-17] MEDS: cephALEXin 500 MG CAPSULE PO (20:05)
[2020-06-17] MEDS: oxyCODONE HCl Immed Release 5 MG TABLET 10 MG PO (20:05)
== END 2020-06-17 20:22 | disposition home or self-care (01) ==
PROVIDERS: Emergency Provider Internal Medicine; PCP Internal Medicine
DX: R10.31 Right lower quadrant pain (principal); Z98.890 Other specified postprocedural states; I25.2 Old myocardial infarction
CPT/HCPCS: 36415; 74176; 80048; 81003; 85025; 99284

== ENCOUNTER → 2020-06-23 15:12 | Outpatient (BNVA) | payer OTHER, SELFPAY | PROVIDERS: PCP Internal Medicine; Visit Provider Urology | DX: Z13.89 Encounter for screening for other disorder (principal) | CPT/HCPCS: 99212 ==

== ENCOUNTER 2020-08-19 08:19 | Emergency (ER) | payer OTHER, SELFPAY ==
--- NOTE | ~2020-08-19 | XR_ITS ---
EXAMINATION: XR RIBS, RIGHT CLINICAL INFORMATION: Right rib pain COMPARISON: CT chest of March 15, 2020 TECHNIQUE: PA chest and 3 view right ribs FINDINGS: There is no evidence of acute parenchymal disease, pneumothorax, or pleural effusion. Heart normal size. No evidence of pulmonary edema. There are old healed fractures of the right sixth and seventh ribs posterior laterally. There is an acute nondisplaced fracture involving the lateral aspect of the right eighth rib. XR/XR ribs RT min 3V w CXR1V IMPRESSION: Nondisplaced lateral right eighth rib fracture. No acute parenchymal disease within the chest. No pneumothorax.
[2020-08-19 08:33] VITALS: BP 144/102; PULSE 91; RESP 18; TEMP 36.6; O2SAT 98; BMI 42.0
[2020-08-19] MEDS: Acetaminophen 325 MG TABLET 650 MG PO (09:14)
--- NOTE | 2020-08-19 09:26 | ED.BACK ---
HPI - Back Pain/Injury General Chief Complaint: Back Pain/Injury Stated Complaint: back pain Time Seen by Provider: 08/19/20 08:40 Source: patient Mode of arrival: ambulatory History of Present Illness HPI Narrative: 45-year-old female with a past medical history of arthritis, back pain, fibromyalgia, obesity, rectal prolapse, SBO, urinary incontinence, presenting to the ED complaining of right mid/side back pain s/p coughing fit while lying in bed yesterday. Denies known injury/trauma or falls. Reports pain exacerbated by any movement. Denies radiation of pain, abdominal pain, nausea/vomiting, numbness, tingling, weakness, SOB, CP, recent travel, oral OCPs. Reports currently menstruating, no otherwise abnormal hematuria. MD elicited complaint: back pain Related Data Home Medications Medication Instructions Recorded Confirmed aripiprazole 5 mg tablet 5 mg PO DAILY 01/26/20 06/14/20 bupropion HCl 300 mg 24 hr tablet, 300 mg PO DAILY 01/26/20 06/14/20 extended release carbamazepine 200 mg tablet 200 mg PO QID 01/26/20 06/14/20 cholecalciferol (vitamin D3) 50 50 mcg PO BEDTIME 01/26/20 06/14/20 mcg (2,000 unit) capsule clonazepam 1 mg tablet 1 mg PO TID PRN 01/26/20 06/14/20 fluoxetine 20 mg capsule 40 mg PO DAILY 01/26/20 06/14/20 glycopyrrolate 1 mg tablet 1 mg PO TID 01/26/20 06/14/20 melatonin 10 mg capsule 10 mg BEDTIME 01/26/20 06/14/20 norethindrone acetate 5 mg tablet 5 mg PO DAILY 02/16/20 06/14/20 primidone 50 mg tablet 100 mg PO TID 02/16/20 06/14/20 imipramine HCl 10 mg tablet 10 mg PO BID 05/25/20 06/14/20 sertraline PO DAILY 06/14/20 06/14/20 sertraline 100 mg tablet 0 mg PO 06/23/20 Previous Rx's Medication Instructions Recorded ketoconazole 2 % topical cream 1 appl TOPICAL DAILY 3 Days #60 g 06/14/20 cephalexin 500 mg PO Q6H 10 Days #40 cap 06/17/20 levofloxacin 500 mg PO DAILY 10 Days #10 tab 06/17/20 meloxicam 15 mg tablet 15 mg PO DAILY 30 Days #30 tab 06/23/20 oxycodone 5 mg tablet 5 mg PO Q6H PRN #20 tab 06/23/20 pyridoxine (vitamin B6) 100 mg 100 mg PO DAILY 90 Days #90 tab 06/23/20 tablet aspirin 81 mg tablet,delayed 81 mg PO DAILY #90 tab 06/26/20 release acetaminophen [Tylenol Extra 500 mg PO Q6H PRN #20 tab 08/19/20 Strength] hydrocodone-acetaminophen 1 tab PO Q6H PRN 3 Days #9 tab 08/19/20 lidocaine [Lidoderm] 1 patch TOPICAL DAILY PRN #30 ea 08/19/20 MDD remove after 12 hours naproxen 500 mg PO BID PRN 10 Days #20 tab 08/19/20 Allergies Allergy/AdvReac Type Severity Reaction Status Date / Time Penicillins Allergy Severe ITCHING/SWE Verified 06/14/20 12:42 LLING doxycycline [DOXYCYCLINE] Allergy Intermediate SEVERE Verified 06/14/20 12:42 ITCHING, pruritis sulfamethoxazole [Bactrim] Allergy Unknown Unknown Verified 06/14/20 12:42 Review of Systems Review of Systems: Constitutional: No Fever, No Chills Cardiovascular: +R chest wall Pain, No SOB, No Edema Respiratory: No Cough, No Dyspnea Gastrointestinal: No Nausea, No Vomiting, No Diarrhea, No Constipation, No Abdominal pain, No Hematochezia, No Melena Genitourinary: No irregular bleeding, No Dysuria, No Flank Pain Musculoskeletal: +back pain, No Myalgias, No Joint Swelling Skin: No Skin Lesions, No rash Neuro: No Weakness, No Numbness, No Paresthesias Yes all other systems are reviewed and are negative FOR[facility]LY [facility], [facility] Past Medical History Attestation statement: The following information was validated with the patient. Medical History Abnormal CT of the abdomen Arthritis Back pain Bipolar II disorder Dyspnea Fibromyalgia History of [place] (myocardial infarction) History of urinary incontinence Hospital discharge follow-up Hyperkalemia Lab test negative for COVID-19 virus Obesity Optic neuritis Partial bowel obstruction Rectal prolapse Small bowel obstruction Surgical History H/O cystoscopy (06/08/19) History of pubovaginal sling (10/19/19) History of total left knee replacement (TKR) (11/2016) History of total right knee replacement (06/2016) Social History Social History Household Members: Family Housing: House Alcohol intake: never Smoking Status: Former smoker Tobacco Type: Cigarette Second Hand Smoke Exposure: No Substance Use Type: Marijuana Advance Directives: No Advance Directives Information Provided: No service: No Current occupational status: unemployed Physical Exam Vital Signs: Vital Signs: Last Vital Signs Temp 97.9 F 08/19/20 08:33 Pulse 91 08/19/20 08:33 Resp 18 08/19/20 08:33 BP 144/102 H 08/19/20 08:33 Pulse Ox 98 08/19/20 08:33 Body Mass Index 42.0 Const: Other: In pain General: cooperative and healthy appearing Orientation/consciousness: patient oriented x3 Limitations: no limitations HENMT: Head: Yes normal to inspection Ears: hearing grossly normal bilaterally General nose exam: Normal external nose present Face and sinus: Yes normal facial exam Eyes: General: appearance normal, both eyes and all related structures EOM: EOMs intact bilaterally Neck: Neck: Yes normal visual inspection and Yes no meningeal signs Chest: Other: Right-sided mid axillary rib/costochondral tenderness reproducing subjective complaint. No crepitus/deformity Chest palpation & inspection: normal inspection of the chest, no crepitus and tenderness Resp: Effort & Inspection: normal respiratory effort and no stridor Cardio: Rate: regular rate GI: Inspection: Yes normal to inspection Palpation (GI): Soft to palpation, nontender, no guarding and not rigid : General: Yes no CVA tenderness Back/Spine/Pelvis: Other: No midline thoracic/lumbar spinous tenderness or step-off Back: no CVA tenderness Skin: Rashes: no rashes Wounds: no wounds Neuro: General: patient oriented x3 and no meningeal signs Gait exam (Neuro): Normal gait present Extrem: General: Yes normal to inspection, Yes no pedal edema and Yes no calf tenderness Course Course Course Narrative: XR ribs RT min 3V w CXR1V IMPRESSION: Nondisplaced lateral right eighth rib fracture. No acute parenchymal disease within the chest. No pneumothorax. >> results discussed with patient. Patient denies falls or trauma again. Denies any abuse/safety issues at home. Will give incentive spirometry and PCP follow-up MDM - Back Pain/Injury MDM Narrative Medical decision making narrative: On exam mildly hypertensive, appears in pain, physical exam as above. Pain very reproducible. No midline spinous tenderness. No red flag symptoms. Likely MSK pain/costochondritis. Rule out stress fracture. Low concern for pneumothorax, renal stone, pyelo, UTI, cholecystitis or cholelithiasis Plan: CXR Medical Records Attestation: I reviewed the patient's medical records. Lab Data Attestation: I reviewed the patient's lab results. Discharge Plan Discharge Clinical Impression: Closed rib fracture Qualifiers: Encounter type: initial encounter Rib fracture type: single rib Laterality: right Qualified Code(s): S22.31XA - Fracture of one rib, right side, initial encounter for closed fracture Patient Disposition: Home, Self-Care Instructions: Rib Fracture (ED) Additional Instructions: You have a nondisplaced fracture of your 8th lateral rib You also have old healing fractures of her right 6th and 7th ribs posteriorly Use incentive spirometer at home hourly for the next 5 days to prevent pneumonia [place] is an opiate pain medication, take with food for the next 3 days. Be aware has Tylenol mixed in, do not exceed 4 g of Tylenol 1 day Naproxen it is in anti-inflammatory/pain medication, take with food. Lidoderm patches or numbing patches, apply to painful area In addition take Tylenol. Follow-up with If symptoms persist or worsen, or unbearable, return to the ED Prescriptions: New lidocaine [Lidoderm] 5 % adhesive patch,medicated 1 patch topical DAILY MDD remove after 12 hours PRN (Reason: pain) Qty: 30 RF: 0 acetaminophen [Tylenol Extra Strength] 500 mg tablet 500 mg PO Q6H PRN (Reason: pain or fever) Qty: 20 RF: 0 naproxen 500 mg tablet 500 mg PO BID PRN (Reason: pain) 10 Days Qty: 20 RF: 0 hydrocodone-acetaminophen 5-325 mg tablet 1 tab PO Q6H PRN (Reason: pain, severe) 3 Days Qty: 9 RF: 0 No Action aspirin 81 mg tablet,delayed release (DR/EC) 81 mg PO DAILY Qty: 90 RF: 3 cephalexin 500 mg capsule 500 mg PO Q6H 10 Days Qty: 40 RF: 0 levofloxacin 500 mg tablet 500 mg PO DAILY 10 Days Qty: 10 RF: 0 sertraline PO DAILY RF: 0 ketoconazole 2 % cream 1 appl topical DAILY 3 Days Qty: 60 RF: 0 imipramine HCl 10 mg tablet 10 mg PO BID RF: 0 clonazepam 1 mg tablet 1 mg PO TID PRN (Reason: Skin Cleansing) RF: 0 melatonin 10 mg capsule 10 mg BEDTIME RF: 0 glycopyrrolate 1 mg tablet 1 mg PO TID RF: 0 fluoxetine 20 mg capsule 40 mg PO DAILY RF: 0 aripiprazole 5 mg tablet 5 mg PO DAILY RF: 0 carbamazepine 200 mg tablet 200 mg PO QID RF: 0 bupropion HCl 300 mg tablet extended release 24 hr 300 mg PO DAILY RF: 0 cholecalciferol (vitamin D3) 50 mcg (2,000 unit) capsule 50 mcg PO BEDTIME RF: 0 norethindrone acetate 5 mg tablet 5 mg PO DAILY RF: 0 primidone 50 mg tablet 100 mg PO TID RF: 0 oxycodone 5 mg tablet 5 mg PO Q6H PRN (Reason: pain) Qty: 20 RF: 0 meloxicam [Mobic] 15 mg tablet 15 mg PO DAILY 30 Days Qty: 30 RF: 0 pyridoxine (vitamin B6) 100 mg tablet 100 mg PO DAILY 90 Days Qty: 90 RF: 1 Referrals: Hector Galarza MD [Primary Care Provider] - 2 days
== END 2020-08-19 10:34 | disposition home or self-care (01) ==
PROVIDERS: Emergency Provider Emergency Medicine; PCP Internal Medicine
DX: S22.31XA Fracture of one rib, right side, initial encounter for closed fracture (principal); X50.3XXA Overexertion from repetitive movements, initial encounter; I10 Essential (primary) hypertension; Y93.89 Activity, other specified; Y92.013 Bedroom of single-family (private) house as the place of occurrence of the external cause; Y99.8 Other external cause status
CPT/HCPCS: 71101; 99283

== ENCOUNTER → 2020-08-31 15:27 | Outpatient (BNVA) | payer OTHER, SELFPAY | PROVIDERS: Visit Provider Obstetrics & Gynecology | DX: N92.1 Excessive and frequent menstruation with irregular cycle (principal) | CPT/HCPCS: Q3014 ==

== ENCOUNTER 2020-09-02 07:03 | Outpatient (REF) | payer OTHER, SELFPAY ==
[2020-09-02 10:01] LABS: HCG Quantitative < 2 mIU/mL; Thyroid Stimulating Hormone 0.48 uIU/mL (0.32-4.0)
[2020-09-05 21:02] LABS: Prot Elec - Alpha1 0.3 g/dL (0.2-0.3); Prot Elec - Alpha2 0.8 g/dL (0.5-0.9); Prot Elec - Beta 1 0.5 g/dL (0.4-0.6); Prot Elec - Beta 2 0.3 g/dL (0.2-0.5); Prot Elec - Gamma 0.7 g/dL (0.8-1.7); Prot Elec - Total Protein 6.6 g/dL (6.1-8.1)
== END 2020-09-02 07:04 | disposition home or self-care (01) ==
LOC: HO.LAB 07:03
PROVIDERS: PCP Internal Medicine; Visit Provider Obstetrics & Gynecology
DX: N92.1 Excessive and frequent menstruation with irregular cycle (principal); S22.39XA Fracture of one rib, unspecified side, initial encounter for closed fracture
CPT/HCPCS: 36415; 84155; 84165; 84443; 84702

== ENCOUNTER 2020-09-11 08:44 | Outpatient (REF) | payer OTHER, SELFPAY ==
[2020-09-11 13:20] LABS: CT PCR NOT DETECTED (Not Detect.); NG PCR NOT DETECTED (Not Detect.)
[2020-09-14 10:16] LABS: HPV mRNA E6/E7 rflx Not Detected (Not Detected)
== END 2020-09-11 08:45 | disposition home or self-care (01) ==
LOC: HO.LAB 08:44
PROVIDERS: Visit Provider Obstetrics & Gynecology
DX: N92.1 Excessive and frequent menstruation with irregular cycle (principal); Z11.51 Encounter for screening for human papillomavirus (HPV)
CPT/HCPCS: 58100; 87491; 87591; 87624; 88142; 88305; 99212

== ENCOUNTER → 2020-09-27 11:02 | Outpatient (BNVA) | payer OTHER, SELFPAY | PROVIDERS: PCP Internal Medicine; Visit Provider Obstetrics & Gynecology | DX: N92.1 Excessive and frequent menstruation with irregular cycle (principal) | CPT/HCPCS: Q3014 ==

== ENCOUNTER 2020-11-11 08:12 | Outpatient (REF) | payer OTHER, SELFPAY ==
[2020-11-11 09:10] LABS: MANUAL DIFF FLAG NO
[2020-11-11 09:35] LABS: Basophils Absolute Auto 0.1 X10*3/uL (0.0-0.2); Basophils Percent Auto 0.7 % (0-2); Eosinophils Absolute Auto 0.2 X10*3/uL (0.0-0.4); Eosinophils Percent Auto 3.3 % (0-4); Hematocrit 41.1 % (37-47); Imm Gran Abs Auto 0.02 X10*3/uL (0.00-0.03); Imm Gran Pct Auto 0.3 % (0.0-0.4); Lymphocytes Absolute Auto 1.9 X10*3/uL (1.2-4.9); Lymphocytes Percent Auto 26.6 % (20-40); Mean Corpuscular HGB Conc 31.6 g/dl (31.0-35.0); Mean Corpuscular Hemoglobin 27.2 pg (27.0-33.0); Mean Platelet Volume 10.9 fL (9.4-12.3); Monocytes Absolute Auto 0.5 X10*3/uL (0.1-1.2); Monocytes Percent Auto 7.3 % (2-11); Neutrophils Absolute Auto 4.5 X10*3/uL (2.0-8.3); Neutrophils Percent Auto 61.8 % (45-73); Platelet Count 289 X10*3/uL (160-400); Red Blood Count 4.78 X10*6/uL (4.20-5.50); Red Cell Distribution Width 14.6 % (11.0-16.0); White Blood Count 7.3 X10*3/uL (4.8-10.8)
[2020-11-11 10:32] LABS: Alanine Aminotransferase 22 U/L (0-31); Alkaline Phosphatase 96 U/L (39-117); Anion Gap 13 (12-20); Aspartate Amino Transferase 14 U/L (5-31); Bilirubin Total 0.3 mg/dL (0.0-1.0); Blood Urea Nitrogen 16 mg/dL (9-16); Calcium 8.3 mg/dL (8.4-10.2); Carbon Dioxide 21 mmol/L (22-29); Chloride 108 mmol/L (96-108); Cholesterol 190 mg/dL; Estimated Glomerular Filt Rate > 60; Glucose Fasting 97 mg/dL (60-99); HDL Cholesterol 57 mg/dL; LDL Cholesterol Calculated 107 mg/dl; Potassium 4.7 mmol/L (3.3-5.1); Sodium 137 mmol/L (135-145); Total Protein 6.4 g/dL (6.5-8.0); Triglycerides 134 mg/dL
[2020-11-11 10:36] LABS: TSH reflex Free T4 0.51 uIU/mL (0.32-4.0)
[2020-11-15 18:12] LABS: Vitamin D 25-OH, D2 <4 ng/mL; Vitamin D 25-OH, D3 14 ng/mL; Vitamin D 25-OH, Total 14 ng/mL (30-100)
== END 2020-11-11 08:13 | disposition home or self-care (01) ==
LOC: HO.LAB 08:12
PROVIDERS: PCP Internal Medicine; Visit Provider Internal Medicine
DX: Z00.01 Encounter for general adult medical examination with abnormal findings (principal); E55.9 Vitamin D deficiency, unspecified; E66.09 Other obesity due to excess calories; F06.8 Other specified mental disorders due to known physiological condition; I10 Essential (primary) hypertension
CPT/HCPCS: 36415; 80053; 80061; 82306; 84443; 85025

== ENCOUNTER 2020-11-22 09:50 | Emergency (ER) | payer OTHER, SELFPAY ==
--- NOTE | ~2020-11-22 | CT_ITS ---
EXAMINATION: CT HEAD WITHOUT CONTRAST CLINICAL INFORMATION: Syncope weeks ago. COMPARISON: None TECHNIQUE: Contiguous axial imaging was performed from the skull base to vertex without intravenous administration of contrast. This CT examination was performed using dose optimization techniques as appropriate, variously including the following: *Automated exposure control *Adjustment of mA and/or kV according to patient size (this includes techniques or standardized protocols for targeted exams where dose is matched to indication/reason for exam; i.e. extremities or head) *Use of iterative reconstruction technique DLP: 76 mGy-cm FINDINGS: There is no evidence of acute intracranial hemorrhage or territorial infarction. No abnormal mass effect or midline shift is seen. [place] to white matter differentiation is well preserved. No extra-axial fluid collections are identified. The ventricles are normal in size. There is no abnormal attenuation within the brain parenchyma. The osseous structures and soft tissues are normal. The mastoid air cells and visualized portions of the paranasal sinuses are well aerated. CT/CT head/brain wo con IMPRESSION: No acute intracranial process seen.
--- NOTE | ~2020-11-22 | XR_ITS ---
EXAMINATION: XR CHEST CLINICAL INFORMATION: Syncope for 2 weeks COMPARISON: August 19, 2020 TECHNIQUE: AP portable view of the chest was obtained. FINDINGS: There is no evidence of acute parenchymal disease, pneumothorax, or pleural effusion. Heart normal size. No evidence of pulmonary edema. There are old healed right-sided rib fractures present. XR/XR chest 1V IMPRESSION: No acute disease.
[2020-11-22 09:53] VITALS: BP 188/107; PULSE 79; RESP 18; TEMP 36.1; O2SAT 97; BMI 39.6
[2020-11-22 10:01] VITALS: BP 146/91; PULSE 75; RESP 14; TEMP 36.9; O2SAT 97
[2020-11-22 10:28] LABS: COVID-19 Test Negative (Negative)
--- NOTE | 2020-11-22 10:45 | ECG_ITS ---
Test Reason : GENERAL MEDICATION Blood Pressure : / mmHG Vent. Rate : 072 BPM Atrial Rate : 072 BPM P-R Int : 144 ms QRS Dur : 094 ms QT Int : 396 ms P-R-T Axes : 046 052 063 degrees QTc Int : 433 ms Normal sinus rhythm Normal ECG When compared with ECG of 15-MAR-2020 09:48, Nonspecific T wave abnormality now evident in Anterior leads Referred By: Kimi Fontanez Electronically Signed By:JOSHUA OLEA
[2020-11-22 11:05] LABS: Glucose Urine UA NEG (NEG); Leukocyte Esterase Urine NEG (NEG); Nitrite Urine NEG (NEG); Specific Gravity - Urine >= 1.030 (1.005-1.025); Urine Blood NEG (NEG); Urine Ketones NEG (NEG); Urine Protein NEG (NEG-TRACE)
[2020-11-22 11:06] LABS: Appearance Urine HAZY; Color Urine YELLOW
[2020-11-22 11:12] LABS: MANUAL DIFF FLAG NO
[2020-11-22 11:13] LABS: Basophils Percent Auto 0.4 % (0-2); Eosinophils Absolute Auto 0.1 X10*3/uL (0.0-0.4); Eosinophils Percent Auto 1.5 % (0-4); Hematocrit 39.3 % (37-47); Hemoglobin 13.2 g/dl (12.0-16.0); Imm Gran Abs Auto 0.02 X10*3/uL (0.00-0.03); Imm Gran Pct Auto 0.3 % (0.0-0.4); Lymphocytes Absolute Auto 1.9 X10*3/uL (1.2-4.9); Lymphocytes Percent Auto 25.5 % (20-40); Mean Corpuscular HGB Conc 33.6 g/dl (31.0-35.0); Mean Corpuscular Hemoglobin 28.3 pg (27.0-33.0); Mean Corpuscular Volume 84.2 fL (80-98); Mean Platelet Volume 10.3 fL (9.4-12.3); Monocytes Absolute Auto 0.5 X10*3/uL (0.1-1.2); Monocytes Percent Auto 6.3 % (2-11); Neutrophils Absolute Auto 4.9 X10*3/uL (2.0-8.3); Platelet Count 316 X10*3/uL (160-400); Red Blood Count 4.67 X10*6/uL (4.20-5.50); Red Cell Distribution Width 14.2 % (11.0-16.0); White Blood Count 7.4 X10*3/uL (4.8-10.8)
[2020-11-22] MEDS: Acetaminophen 325 MG TABLET 975 MG PO (11:32)
[2020-11-22 11:38] LABS: Alanine Aminotransferase 15 U/L (0-31); Alkaline Phosphatase 103 U/L (39-117); Anion Gap 13 (12-20); Aspartate Amino Transferase 14 U/L (5-31); B Type Natriuretic Peptide 96 pg/mL (<100); Bilirubin Total < 0.2 mg/dL (0.0-1.0); Blood Urea Nitrogen 19 mg/dL (9-16); Calcium 9.1 mg/dL (8.4-10.2); Carbon Dioxide 20 mmol/L (22-29); Chloride 111 mmol/L (96-108); Creatinine Clr Calc Pharmacy 101.8; Estimated Glomerular Filt Rate > 60; Glucose Random 101 mg/dL (60-115); Magnesium 1.7 mg/dL (1.6-2.6); Potassium 3.9 mmol/L (3.3-5.1); Sodium 140 mmol/L (135-145); Total Protein 6.3 g/dL (6.5-8.0); Troponin-I High Sensitivity < 3.5 ng/L (<3.5-17.0)
[2020-11-22 11:40] LABS: HCG Quantitative < 2 mIU/mL
--- NOTE | 2020-11-22 12:04 | ED.GENADULT ---
HPI - General Adult General Chief complaint: General Medical Stated complaint: CHILLS TIRED Time Seen by Provider: 11/22/20 10:11 Source: patient Mode of arrival: ambulatory Limitations: no limitations History of Present Illness HPI narrative: 45-year-old female With a past medical history arthritis, back pain, fibromyalgia, obesity, rectal prolapse status post repair, small-bowel obstruction, urinary incontinence status post repair who is presenting to the emergency department with multiple complaints her 1st complaint includes chills, intermittent headaches runny nose, nasal congestion and fatigue since Friday worse today. Requesting to be tested for COVID. Denies recent travel or sick contacts. She also reports that she had a syncopal episode in her kitchen approximately 2 weeks ago where she open her refrigerator and she just syncopized and ended up on the floor she did not have prolonged down time and she did not hit her head. She reports that her son witnessed the entire episodes. She reports she woke up right away after that. She is unsure why it happened. She reports this has happened in the past and she had an MN this was few years ago. She reports that she felt okay after that is why she did not come to be seen. She denies any dizziness at this time, headaches, fevers, chills, changes in vision, neck pain/stiffness, chest pain, shortness of breath, abdominal pain, nausea/vomiting/diarrhea/constipation, black or bloody stools, dysuria, hematuria, palpitations, extremity edema or any other symptoms complaints or concerns at this time. Related Data Home Medications Medication Instructions Recorded Confirmed aripiprazole 5 mg tablet 5 mg PO DAILY 01/26/20 10/27/20 bupropion HCl 300 mg 24 hr tablet, 300 mg PO DAILY 01/26/20 10/27/20 extended release carbamazepine 200 mg tablet 200 mg PO QID 01/26/20 10/27/20 cholecalciferol (vitamin D3) 50 50 mcg PO BEDTIME 01/26/20 10/27/20 mcg (2,000 unit) capsule clonazepam 1 mg tablet 1 mg PO TID PRN 01/26/20 10/27/20 fluoxetine 20 mg capsule 40 mg PO DAILY 01/26/20 10/27/20 glycopyrrolate 1 mg tablet 1 mg PO TID 01/26/20 10/27/20 melatonin 10 mg capsule 10 mg BEDTIME 01/26/20 10/27/20 primidone 50 mg tablet 100 mg PO TID 02/16/20 10/27/20 sertraline [Zoloft] PO DAILY 06/14/20 10/27/20 dicyclomine 10 mg capsule 10 mg PO Q6H PRN 08/25/20 10/27/20 cholestyramine (with sugar) 4 gram 1 ea PO BID 09/15/20 10/27/20 powder for susp in a packet ammonium lactate 12 % topical cream 1 appl TOPICAL BID 10/27/20 10/27/20 betamethasone dipropionate 0.05 % TOPICAL 10/27/20 10/27/20 lotion clindamycin phosphate 1 % lotion TOPICAL 10/27/20 10/27/20 famotidine 40 mg tablet 40 mg PO BID 10/27/20 10/27/20 tretinoin 0.1 % topical cream appl TOPICAL BEDTIME PRN 10/27/20 10/27/20 Previous Rx's Medication Instructions Recorded ketoconazole 2 % topical cream 1 appl TOPICAL DAILY 3 Days #60 g 06/14/20 pyridoxine (vitamin B6) 100 mg 100 mg PO DAILY 90 Days #90 tab 06/23/20 tablet aspirin 81 mg tablet,delayed 81 mg PO DAILY #90 tab 06/26/20 release acetaminophen 500 mg tablet 500 mg PO Q6H PRN #20 tab 08/19/20 (Tylenol Extra Strength) diclofenac sodium 75 mg 75 mg PO BID 7 Days #14 tab 08/25/20 tablet,delayed release imipramine HCl 10 mg tablet 10 mg PO BID #60 tab 09/14/20 cholecalciferol (vitamin D3) 25 25 mcg PO DAILY 90 Days #90 cap 09/15/20 mcg (1,000 unit) capsule norethindrone acetate 5 mg tablet 5 mg PO DAILY #30 tab 10/24/20 atenolol 25 mg tablet 25 mg PO DAILY 90 Days #90 tab 11/03/20 azithromycin 250 mg tablet See Rx Instructions .ROUTE 11/22/20 .COMPLEX #6 tab Allergies Allergy/AdvReac Type Severity Reaction Status Date / Time Penicillins Allergy Severe ITCHING/SWE Verified 09/15/20 09:45 LLING doxycycline [DOXYCYCLINE] Allergy Intermediate SEVERE Verified 09/15/20 09:45 ITCHING, pruritis sulfamethoxazole [Bactrim] Allergy Unknown Unknown Verified 09/15/20 09:45 Sulfa (Sulfonamide Allergy Chest Pain Verified 11/22/20 09:56 Antibiotics) Review of Systems Review of Systems: Constitutional : Positive chills, No Weight loss, No Fever, No Night Sweats, No Fatigue, No Malaise ENT/Mouth : Positive rhinorrhea/nasal congestion, No Hearing loss, No Ear Pain, No Sinus Pain, No Hoarseness, No sore throat, No Swallowing Difficulty Eyes: No Eye Pain, No Swelling, No Redness, No Foreign Body, No Discharge, No Vision Changes Cardiovascular : No Chest Pain, No SOB, No Dyspnea on Exertion, No Orthopnea, No Edema, No Palpitations Respiratory : No Cough, No Sputum, No Wheezing, No Smoke Exposure, No Dyspnea Gastrointestinal : No Nausea, No Vomiting, No Diarrhea, No Constipation, No abdominal Pain, No Hematochezia, No Melena Genitourinary : no irregular bleeding, No Dysuria, No Urinary Frequency, No Hematuria, No Urinary Incontinence, No Urgency, No Flank Pain, No Urinary Flow Changes, No Hesitancy Musculoskeletal : No joint pain, No Myalgias, No Joint Swelling Skin : No Skin Lesions, No rash Neuro : Positive syncopal episode 2 weeks ago, No Weakness, No Numbness, No Paresthesias, No Loss of Consciousness, No Dizziness, No Headache Psych : No Anxiety/Panic, No Depression, No SI/HI/AH/VH, No Social Issues, Heme/Lymph: No Bruising, No Bleeding,No Lymphadenopathy Endocrine : No Polyuria, No Polydipsia, No Temperature Intolerance Yes all other systems are reviewed and are negative [facility] Past Medical History Attestation statement: The following information was validated with the patient. Medical History Abnormal CT of the abdomen Arthritis Back pain Bipolar II disorder Dyspnea Fibromyalgia History of MN (myocardial infarction) History of urinary incontinence Hospital discharge follow-up Hyperkalemia Lab test negative for COVID-19 virus Obesity Optic neuritis Partial bowel obstruction Rectal prolapse Small bowel obstruction Surgical History H/O cystoscopy (06/08/19) History of pubovaginal sling (10/19/19) History of total left knee replacement (TKR) (11/2016) History of total right knee replacement (06/2016) Social History Social History Household Members: Family Housing: House Alcohol intake: never Patient Tobacco Use Status: Former Tobacco user Tobacco use type: Cigarette Cigarette Packs Per Day: 1 Cigarettes Per Day: 20 Years Smoked: 20 Second Hand Smoke Exposure: No Substance Use Type: Marijuana Advance Directives: Yes Advance Directives Information Provided: Yes Advance Directives on File: No service: No Current occupational status: unemployed Physical Exam Vital Signs: Vital Signs: Last Vital Signs Temp 98.9 F 11/22/20 12:15 Pulse 68 11/22/20 12:15 Resp 13 11/22/20 12:15 BP 131/78 11/22/20 12:15 Pulse Ox 97 11/22/20 12:15 Body Mass Index 39.6 Vital signs have been reviewed as normal and appeared to be correct. Blood pressure hypertensive 188/107 Heart rate normal. Respiration rate normal. Temperature normal. Oxygen saturation normal. Appearance: Alert. Oriented X3. No acute distress. Head: Normal external exam. Normocephalic. Atraumatic. Able to rotate head bilaterally. Eyes: PERRLA. EOMI. No nystagmus noted. Conjunctiva and sclera normal. Eyelids normal. Corneal reflex normal. ENT: EAC normal. TM's Normal. Hearing normal. Pharynx normal. Uvula midline. tongue midline. Moist mucous membranes. No trismus noted. No drooling noted. No muffled voice noted. No nystagmus noted. Neck: Normal inspection. Neck supple. FROM. No adenopathy. Trachea midline. Thyroid Normal. No meningeal signs. No neck mass noted. CVS: Normal heart rate and rhythm. Heart sound normal. No murmurs noted. Pulses normal throughout. Respiratory: No respiratory distress. Painless inspiration. Breath sounds normal. No wheezes/rales/rhonchi noted. Chest nontender. No accessory muscle usage noted or decreased air movement noted. Abdomen: Soft and nontender. Bowel sounds normal in all 4 quadrants. No distention noted. No organomegaly noted. No visible injury noted. Back: No CVA tenderness. Full range of motion noted. Skin: Skin warm and dry. Normal skin color. Normal skin turgor. No rashes/lesions/lacerations noted. Extremities: No lower extremity edema. Extremities exhibit normal range of motion. Extremities nontender. Able to shrug shoulders bilaterally and keep up against resistance. Neuro: Oriented X 3. No motor deficit. No sensory deficit. Reflexes normal. Moving all extremities. No focal motor deficits. Cranial nerves II-XI intact bilaterally. Facial strength normal. Normal cognition. Speech normal. Gait normal. Strength 5/5 throughout. No pronator drift. No tremor noted. No fasciculations noted. No rigidity noted. Muscle tone normal throughout. No asterixis noted. [id number] test normal. Heel to cota test normal. Tandem gait normal. Does not sway with eyes open. Romberg test negative. Rapid alternating movement upper extremity normal. Rapid alternating movement lower extremity normal. Hand drop from overhead Misses face. NIHSS score 0. Course Course Course Narrative: 10:45am - 45-year-old female presenting to the ED with multiple complaints which include chills, intermittent headaches, rhinorrhea/nasal congestion and fatigue since Friday worse today no recent travel or sick contacts. Requesting COVID swab. Also reports a separate complaint that she syncopized approximately 2 weeks ago with LOC no head injury. No prolonged down time. Bradley better after therefore she was not evaluated. Denies any other injuries complaints or concerns at this time. - On exam patient is alert and oriented x3. Not in any acute distress. No focal deficits are noted. Normal steady gait. NIH SS score 0. Lungs clear to auscultation. CV RRR. Abdomen is soft and nontender. Patient has non disabling symptoms. Plan: Labs, CT scan of brain, EKG, chest x-ray, COVID swab then re-evaluate Reevaluation(s) Reevaluation #1: - labs reviewed and all within normal limits. Serum quant negative for . UA negative for evidence of UTI. COVID swab negative. - pending CT scan of brain if negative will DC home with symptomatic treatment instructions to follow-up with her PCP and to return if any new or worsening symptoms. Patient understands agrees with this plan. Time: 12:15 Medical Decision Making Lab Data Result diagrams: 11/22/20 10:58 11/22/20 10:58 Labs: Lab Results 11/22/20 11/22/20 11/22/20 Range/Units 10:06 10:56 10:58 WBC 7.4 (4.8-10.8) X10*3/uL RBC 4.67 (4.20-5.50) X10*6/uL Hgb 13.2 (12.0-16.0) g/dl Hct 39.3 (37-47) % MCV 84.2 (80-98) fL MCH 28.3 (27.0-33.0) pg MCHC 33.6 (31.0-35.0) g/dl RDW 14.2 (11.0-16.0) % Plt Count 316 (160-400) X10*3/uL MPV 10.3 (9.4-12.3) fL Immature Gran % (Auto) 0.3 (0.0-0.4) % Neut % (Auto) 66.0 (45-73) % Lymph % (Auto) 25.5 (20-40) % [place] % (Auto) 6.3 (2-11) % Eos % (Auto) 1.5 (0-4) % Baso % (Auto) 0.4 (0-2) % Lymph # (Auto) 1.9 (1.2-4.9) X10*3/uL [place] # (Auto) 0.5 (0.1-1.2) X10*3/uL Eos # (Auto) 0.1 (0.0-0.4) X10*3/uL Baso # (Auto) 0.0 (0.0-0.2) X10*3/uL Abs Immat Gran (auto) 0.02 (0.00-0.03) X10*3/uL Absolute Neuts (auto) 4.9 (2.0-8.3) X10*3/uL Absolute Nucleated RBC 0.000 (0.0-0.012) X10*3/uL Nucleated RBC % (auto) 0.0 (0.0-0.2) /100WBC Sodium (135-145) mmol/L Potassium (3.3-5.1) mmol/L Chloride (96-108) mmol/L Carbon Dioxide (22-29) mmol/L Anion Gap (12-20) BUN (9-16) mg/dL Creatinine (0.5-1.4) mg/dL Estim Creat Clear Calc Estimated GFR Random Glucose (60-115) mg/dL Calcium (8.4-10.2) mg/dL Magnesium (1.6-2.6) mg/dL Total Bilirubin (0.0-1.0) mg/dL AST (5-31) U/L ALT (0-31) U/L Alkaline Phosphatase (39-117) U/L Troponin I High Sens (<3.5-17.0) ng/L B-Natriuretic Peptide (<100) pg/mL Total Protein (6.5-8.0) g/dL Albumin (3.5-5.0) g/dL Beta HCG, Quant mIU/mL Urine Color YELLOW Urine Appearance HAZY Urine pH 6.0 (5.0-8.0) Ur Specific [place] >= 1.030 H (1.005-1.025) Urine Protein NEG (NEG-TRACE) MG/DL Urine Glucose (UA) NEG (NEG) MG/DL Urine Ketones NEG (NEG) MG/DL Urine Blood NEG (NEG) Urine Nitrite NEG (NEG) Ur Leukocyte Esterase NEG (NEG) COVID-19 (GARCÍA) Negative (Negative) COVID-19 Clin Com See Note 11/22/20 11/22/20 11/22/20 Range/Units 10:58 10:58 10:58 WBC (4.8-10.8) X10*3/uL RBC (4.20-5.50) X10*6/uL Hgb (12.0-16.0) g/dl Hct (37-47) % MCV (80-98) fL MCH (27.0-33.0) pg MCHC (31.0-35.0) g/dl RDW (11.0-16.0) % Plt Count (160-400) X10*3/uL MPV (9.4-12.3) fL Immature Gran % (Auto) (0.0-0.4) % Neut % (Auto) (45-73) % Lymph % (Auto) (20-40) % [place] % (Auto) (2-11) % Eos % (Auto) (0-4) % Baso % (Auto) (0-2) % Lymph # (Auto) (1.2-4.9) X10*3/uL [place] # (Auto) (0.1-1.2) X10*3/uL Eos # (Auto) (0.0-0.4) X10*3/uL Baso # (Auto) (0.0-0.2) X10*3/uL Abs Immat Gran (auto) (0.00-0.03) X10*3/uL Absolute Neuts (auto) (2.0-8.3) X10*3/uL Absolute Nucleated RBC (0.0-0.012) X10*3/uL Nucleated RBC % (auto) (0.0-0.2) /100WBC Sodium 140 (135-145) mmol/L Potassium 3.9 (3.3-5.1) mmol/L Chloride 111 H (96-108) mmol/L Carbon Dioxide 20 L (22-29) mmol/L Anion Gap 13 (12-20) BUN 19 H (9-16) mg/dL Creatinine 0.81 (0.5-1.4) mg/dL Estim Creat Clear Calc 101.8 Estimated GFR > 60 Random Glucose 101 (60-115) mg/dL Calcium 9.1 D (8.4-10.2) mg/dL Magnesium 1.7 (1.6-2.6) mg/dL Total Bilirubin < 0.2 (0.0-1.0) mg/dL AST 14 (5-31) U/L ALT 15 (0-31) U/L Alkaline Phosphatase 103 (39-117) U/L Troponin I High Sens < 3.5 (<3.5-17.0) ng/L B-Natriuretic Peptide 96 (<100) pg/mL Total Protein 6.3 L (6.5-8.0) g/dL Albumin 4.0 (3.5-5.0) g/dL Beta HCG, Quant mIU/mL Urine Color Urine Appearance Urine pH (5.0-8.0) Ur Specific [place] (1.005-1.025) Urine Protein (NEG-TRACE) MG/DL Urine Glucose (UA) (NEG) MG/DL Urine Ketones (NEG) MG/DL Urine Blood (NEG) Urine Nitrite (NEG) Ur Leukocyte Esterase (NEG) COVID-19 (GARCÍA) (Negative) COVID-19 Clin Com 07/28/21 Range/Units 10:58 WBC (4.8-10.8) X10*3/uL RBC (4.20-5.50) X10*6/uL Hgb (12.0-16.0) g/dl Hct (37-47) % MCV (80-98) fL MCH (27.0-33.0) pg MCHC (31.0-35.0) g/dl RDW (11.0-16.0) % Plt Count (160-400) X10*3/uL MPV (9.4-12.3) fL Immature Gran % (Auto) (0.0-0.4) % Neut % (Auto) (45-73) % Lymph % (Auto) (20-40) % [place] % (Auto) (2-11) % Eos % (Auto) (0-4) % Baso % (Auto) (0-2) % Lymph # (Auto) (1.2-4.9) X10*3/uL [place] # (Auto) (0.1-1.2) X10*3/uL Eos # (Auto) (0.0-0.4) X10*3/uL Baso # (Auto) (0.0-0.2) X10*3/uL Abs Immat Gran (auto) (0.00-0.03) X10*3/uL Absolute Neuts (auto) (2.0-8.3) X10*3/uL Absolute Nucleated RBC (0.0-0.012) X10*3/uL Nucleated RBC % (auto) (0.0-0.2) /100WBC Sodium (135-145) mmol/L Potassium (3.3-5.1) mmol/L Chloride (96-108) mmol/L Carbon Dioxide (22-29) mmol/L Anion Gap (12-20) BUN (9-16) mg/dL Creatinine (0.5-1.4) mg/dL Estim Creat Clear Calc Estimated GFR Random Glucose (60-115) mg/dL Calcium (8.4-10.2) mg/dL Magnesium (1.6-2.6) mg/dL Total Bilirubin (0.0-1.0) mg/dL AST (5-31) U/L ALT (0-31) U/L Alkaline Phosphatase (39-117) U/L Troponin I High Sens (<3.5-17.0) ng/L B-Natriuretic Peptide (<100) pg/mL Total Protein (6.5-8.0) g/dL Albumin (3.5-5.0) g/dL Beta HCG, Quant < 2 mIU/mL Urine Color Urine Appearance Urine pH (5.0-8.0) Ur Specific [place] (1.005-1.025) Urine Protein (NEG-TRACE) MG/DL Urine Glucose (UA) (NEG) MG/DL Urine Ketones (NEG) MG/DL Urine Blood (NEG) Urine Nitrite (NEG) Ur Leukocyte Esterase (NEG) COVID-19 (GARCÍA) (Negative) COVID-19 Clin Com ECG Data Attestation: I personally reviewed and interpreted this ECG as follows: Interpretation: Normal sinus rhythm and a TruClear to 72 with a normal AL interval normal QRS duration with QT/QTC interval. No acute ischemic change noted. Similar when compared to prior EKG 03/15/2020. Discharge Plan Discharge Clinical Impression: History of syncope, Upper respiratory infection Patient Disposition: Home, Self-Care Instructions: Syncope (ED), Upper Respiratory Infection (ED) Additional Instructions: You had a negative rapid COVID swab today although if your symptoms just started you may not have enough viral load in your body to produce a positive results therefore she is still having symptoms he should be retested in approximately 7 days. Return if any new or worsening symptoms follow-up with her primary care provider and neurologist. Prescriptions: New azithromycin 250 mg tablet See Rx Instructions .ROUTE .COMPLEX Qty: 6 RF: 0 No Action aspirin 81 mg tablet,delayed release (DR/EC) 81 mg PO DAILY Qty: 90 RF: 3 imipramine HCl 10 mg tablet 10 mg PO BID Qty: 60 RF: 1 norethindrone acetate 5 mg tablet 5 mg PO DAILY Qty: 30 RF: 0 atenolol 25 mg tablet 25 mg PO DAILY 90 Days Qty: 90 RF: 0 acetaminophen [Tylenol Extra Strength] 500 mg tablet 500 mg PO Q6H PRN (Reason: pain or fever) Qty: 20 RF: 0 sertraline PO DAILY RF: 0 ketoconazole 2 % cream 1 appl topical DAILY 3 Days Qty: 60 RF: 0 dicyclomine 10 mg capsule 10 mg PO Q6H PRNRF: 0 diclofenac sodium 75 mg tablet,delayed release (DR/EC) 75 mg PO BID 7 Days Qty: 14 RF: 0 famotidine 40 mg tablet 40 mg PO BID RF: 0 ammonium lactate 12 % cream 1 appl topical BID RF: 0 clindamycin phosphate 1 % lotion topical RF: 0 tretinoin 0.1 % cream topical BEDTIME PRNRF: 0 betamethasone dipropionate 0.05 % lotion topical RF: 0 cholestyramine (with sugar) 4 gram powder in packet 1 ea PO BID RF: 0 cholecalciferol (vitamin D3) 25 mcg (1,000 unit) capsule 25 mcg PO DAILY 90 Days Qty: 90 RF: 0 clonazepam 1 mg tablet 1 mg PO TID PRN (Reason: Skin Cleansing) RF: 0 melatonin 10 mg capsule 10 mg BEDTIME RF: 0 glycopyrrolate 1 mg tablet 1 mg PO TID RF: 0 fluoxetine 20 mg capsule 40 mg PO DAILY RF: 0 aripiprazole 5 mg tablet 5 mg PO DAILY RF: 0 carbamazepine 200 mg tablet 200 mg PO QID RF: 0 bupropion HCl 300 mg tablet extended release 24 hr 300 mg PO DAILY RF: 0 cholecalciferol (vitamin D3) 50 mcg (2,000 unit) capsule 50 mcg PO BEDTIME RF: 0 primidone 50 mg tablet 100 mg PO TID RF: 0 pyridoxine (vitamin B6) 100 mg tablet 100 mg PO DAILY 90 Days Qty: 90 RF: 1 Referrals: Hector Galarza MD [Primary Care Provider] - 2 days Stand Alone Forms: Work/School Release Print Language: Swedish
[2020-11-22 12:15] VITALS: BP 131/78; PULSE 68; RESP 13; TEMP 37.2; O2SAT 97
== END 2020-11-22 13:55 | disposition home or self-care (01) ==
PROVIDERS: Physician Assistant Medical; Emergency Provider Emergency Medicine; PCP Internal Medicine
DX: J06.9 Acute upper respiratory infection, unspecified (principal); Z20.822 Contact with and (suspected) exposure to COVID-19; R51.9 Headache, unspecified; I10 Essential (primary) hypertension; E66.09 Other obesity due to excess calories; Z87.891 Personal history of nicotine dependence
CPT/HCPCS: 36415; 70450; 71045; 80053; 81003; 83735; 83880; 84484; 84702; 85025; 87635; 93005; 99284

== ENCOUNTER 2020-12-01 16:30 | Outpatient (REF) | payer OTHER, SELFPAY | END 2020-12-01 16:31 | disposition home or self-care (01) | LOC: HO.LNP 16:30 | PROVIDERS: Visit Provider Hospitalist | DX: J01.90 Acute sinusitis, unspecified (principal); Z20.822 Contact with and (suspected) exposure to COVID-19 | CPT/HCPCS: U0003; U0005 ==

== ENCOUNTER 2021-02-06 09:47 | Outpatient (REF) | payer OTHER, SELFPAY ==
[2021-02-06 10:51] LABS: Blood Urea Nitrogen 15 mg/dL (9-16); Estimated Glomerular Filt Rate > 60
[2021-02-06 11:24] LABS: Carbamazepine Tegretol 5.6 mcg/mL (5.0-12.0)
== END 2021-02-06 09:48 | disposition home or self-care (01) ==
LOC: HO.LAB 09:47
PROVIDERS: PCP Pediatrics; Visit Provider Psychiatry & Neurology Neurology
DX: G50.0 Trigeminal neuralgia (principal); Z79.899 Other long term (current) drug therapy
CPT/HCPCS: 36415; 80156; 82565; 84520

== ENCOUNTER 2021-02-27 17:55 | Outpatient (REF) | payer OTHER, SELFPAY ==
--- NOTE | ~2021-02-27 | MR_ITS ---
EXAMINATION: MR BRAIN WITHOUT AND WITH CONTRAST CLINICAL INFORMATION: Trigeminal neuralgia. Self-reported left-sided pain with symptoms for 10 years. Self-reported headache. COMPARISON: MRI brain 06/14/2017, 03/25/2017 TECHNIQUE: Multiplanar, multisequence MRI of the brain was obtained before and after the intravenous administration of 10 mL Gadavist. Trigeminal neuralgia protocol images are obtained. FINDINGS: No intrarenal hemorrhage, tumors or infarcts are noted. The ventricles and sulci are normal in size and configuration. The craniocervical junction cerebellar tonsils are normal in appearance. No suspicious marrow abnormalities. The visualized components of the trigeminal nerves are normal in appearance. No dolichoectasia of the basilar artery is visualized. The left superior cerebellar artery abuts the cisternal segment of the left trigeminal nerve (series 14 image [id number]). The trigeminal nerve root entry zones are normal in appearance. This may be a consequence of slight interval differences in imaging slice selection. No abnormalities are noted along the expected course of the extra cranial components of the trigeminal nerves. Cavernous sinuses are normal in appearance. No abnormalities of Meckel's caves are visualized. Mild asymmetric prominence of the left Meckel's cave is present unchanged compared with 03/25/2017 and within expected limits of normal anatomic variation. No abnormal enhancement the brain parenchyma is noted. MR/MR head/brain wo/w con IMPRESSION: -Mild abutment of the left superior cerebellar artery upon the superior margin of the cisternal segment of the left trigeminal nerve unchanged compared with 03/25/2017. This minor degree of neurovascular impingement is of uncertain clinical significance but could correlate with left-sided trigeminal neuralgia. Unenhanced and IV contrast enhanced MRI of the brain is otherwise normal.
== END 2021-02-27 17:56 | disposition home or self-care (01) ==
LOC: HO.MRI 17:55
PROVIDERS: Visit Provider Psychiatry & Neurology Neurology
DX: G50.0 Trigeminal neuralgia (principal)
CPT/HCPCS: 70553; A9585

== ENCOUNTER 2021-04-03 07:49 | Outpatient (REF) | payer OTHER, SELFPAY ==
--- NOTE | ~2021-04-03 | MM_ITS ---
EXAMINATION: MM SCREENING DIGITAL BREAST TOMOSYNTHESIS, BILATERAL CLINICAL INFORMATION: Screening. Asymptomatic. The lifetime risk of breast cancer based on the Tyrer-Cuzick Model is 8.6%. COMPARISON: Mammography: March 28, 2020 and studies dating back to February 11, 2018 TECHNIQUE: Digital breast tomosynthesis is performed in both the craniocaudal and mediolateral oblique views along with computer-aided detection (CAD). Synthesized 2D images are generated from the tomosynthesis. FINDINGS: The breasts are heterogeneously dense, which may obscure small masses (ACR BI-RADS breast composition Category c). There are no significant masses, abnormal calcifications, or other abnormalities. MM/MM tomosynthesis screening BI IMPRESSION: There are no significant changes from prior study. ASSESSMENT: BI-RADS 1: Negative RECOMMENDATION: Routine annual mammography screening. This patient's information was entered into a reminder system with a target due date for their next mammogram.
== END 2021-04-03 07:50 | disposition home or self-care (01) ==
LOC: HO.MAMMO 07:49
PROVIDERS: PCP Pediatrics; Visit Provider Pediatrics
DX: Z12.31 Encounter for screening mammogram for malignant neoplasm of breast (principal)
CPT/HCPCS: 77063; 77067

== ENCOUNTER → 2021-06-04 13:34 | Outpatient (BNVA) | payer OTHER, SELFPAY | PROVIDERS: PCP Pediatrics | DX: N39.41 Urge incontinence (principal); N39.3 Stress incontinence (female) (male) | CPT/HCPCS: 51798; 99202 ==

== ENCOUNTER 2021-07-15 13:22 | Emergency (ER) | payer OTHER, SELFPAY ==
--- NOTE | ~2021-07-15 | XR_ITS ---
EXAMINATION: XR CHEST CLINICAL INFORMATION: Left rib pain and cough COMPARISON: November 22, 2020 TECHNIQUE: 2 views of the chest were obtained. FINDINGS: No significant abnormality is noted involving the heart, lungs, mediastinum, bony thorax or soft tissues. XR/XR chest 2V IMPRESSION: No acute disease.
[2021-07-15 13:48] VITALS: BP 127/80; PULSE 107; RESP 18; TEMP 37.1; O2SAT 97; BMI 46.4
--- NOTE | 2021-07-15 14:23 | ED_ITS ---
HPI - General Adult General Chief complaint: Upper Respiratory Symptoms Stated complaint: L RIB PAIN COUGHING Time Seen by Provider: 07/15/21 14:23 Source: patient Mode of arrival: ambulatory Limitations: no limitations History of Present Illness HPI narrative: Patient is a 46 year old female presenting to the emergency department today with left sided rib pain. Patient states that she has allergies that cause her to cough and she was coughing hard and heard a loud pop then started to have left sided rib pain. Patient denies any dizziness, lightheadedness, abdominal pain, nausea, vomiting, fever, chills, blurry vision, double vision, loss of vision, chest pain, difficulty breathing, shortness of breath, back pain, night sweats, pain with urination, increased urinary frequency, increased urinary urgency, blood in her urine or stool, syncope or a near syncopal episode, recent trauma or falls, bowel incontinence, bladder incontinence, bowel retention, bladder retention, or any other complaints at this time. Onset (ago): hour(s) Radiation: non-radiation Severity: mild Severity scale (1-10): 3 Quality: dull Pain Consistency: constant Relieving factors: none Exacerbating factors: movement Associated symptoms: denies other symptoms Treatments prior to arrival: none Related Data Home Medications Medication Instructions Recorded Confirmed aripiprazole 5 mg tablet 5 mg PO DAILY 01/26/20 10/27/20 bupropion HCl 300 mg 24 hr tablet, 300 mg PO DAILY 01/26/20 10/27/20 extended release carbamazepine 200 mg tablet 200 mg PO QID 01/26/20 10/27/20 cholecalciferol (vitamin D3) 50 50 mcg PO BEDTIME 01/26/20 10/27/20 mcg (2,000 unit) capsule clonazepam 1 mg tablet 1 mg PO TID PRN 01/26/20 10/27/20 fluoxetine 20 mg capsule 40 mg PO DAILY 01/26/20 10/27/20 glycopyrrolate 1 mg tablet 1 mg PO TID 01/26/20 10/27/20 melatonin 10 mg capsule 10 mg BEDTIME 01/26/20 10/27/20 primidone 50 mg tablet 100 mg PO TID 02/16/20 10/27/20 sertraline [Zoloft] PO DAILY 06/14/20 10/27/20 dicyclomine 10 mg capsule 10 mg PO Q6H PRN 08/25/20 10/27/20 cholestyramine (with sugar) 4 gram 1 ea PO BID 09/15/20 10/27/20 powder for susp in a packet ammonium lactate 12 % topical cream 1 appl TOPICAL BID 10/27/20 10/27/20 betamethasone dipropionate 0.05 % TOPICAL 10/27/20 10/27/20 lotion clindamycin phosphate 1 % lotion TOPICAL 10/27/20 10/27/20 famotidine 40 mg tablet 40 mg PO BID 10/27/20 10/27/20 tretinoin 0.1 % topical cream appl TOPICAL BEDTIME PRN 10/27/20 10/27/20 gabapentin 300 mg capsule 300 mg PO TID 06/04/21 ibuprofen 800 mg tablet 800 mg PO BID PRN 06/04/21 pantoprazole 40 mg tablet,delayed 40 mg PO BID 06/04/21 release Previous Rx's Medication Instructions Recorded pyridoxine (vitamin B6) 100 mg 100 mg PO DAILY 90 Days #90 tab 06/23/20 tablet aspirin 81 mg tablet,delayed 81 mg PO DAILY #90 tab 06/26/20 release acetaminophen 500 mg tablet 500 mg PO Q6H PRN #20 tab 08/19/20 (Tylenol Extra Strength) diclofenac sodium 75 mg 75 mg PO BID 7 Days #14 tab 08/25/20 tablet,delayed release imipramine HCl 10 mg tablet 10 mg PO BID #60 tab 09/14/20 cholecalciferol (vitamin D3) 25 25 mcg PO DAILY 90 Days #90 cap 09/15/20 mcg (1,000 unit) capsule atenolol 25 mg tablet 25 mg PO DAILY 90 Days #90 tab 11/03/20 azithromycin 250 mg tablet See Rx Instructions .ROUTE 11/22/20 .COMPLEX #6 tab cefuroxime axetil 500 mg tablet 500 mg PO BID 10 Days #20 tab 12/01/20 prednisone 20 mg tablet 20 mg PO .COMPLEX #18 tab 12/01/20 ketoconazole 2 % topical cream 1 appl TOPICAL DAILY 3 Days #60 g 12/07/20 norethindrone acetate 5 mg tablet 5 mg PO DAILY #90 tab 02/10/21 mirabegron 50 mg tablet,extended 50 mg PO DAILY 90 Days #30 tab 06/28/21 release 24 hr (Myrbetriq) tolterodine 2 mg capsule,extended 2 mg PO DAILY 30 Days #30 cap 06/29/21 release 24 hr cyclobenzaprine 10 mg tablet 10 mg PO TID PRN 7 Days #21 tab 07/15/21 Allergies Allergy/AdvReac Type Severity Reaction Status Date / Time Penicillins Allergy Severe ITCHING/SWE Verified 07/15/21 13:48 LLING doxycycline [DOXYCYCLINE] Allergy Intermediate SEVERE Verified 07/15/21 13:48 ITCHING, pruritis sulfamethoxazole [Bactrim] Allergy Unknown Unknown Verified 07/15/21 13:48 Sulfa (Sulfonamide Allergy Chest Pain Verified 07/15/21 13:48 Antibiotics) Review of Systems Constitutional: Constitutional: Reports no additional constitutional complaints, Denies chills, Denies fever(s) and Denies night sweats Eyes: Eyes: Reports no additional eye complaints, Denies blurry vision, Denies change in vision, Denies diplopia, Denies eye discharge, Denies loss of vision and Denies eye pain ENT: Denies dizziness Cardiovascular: Cardiovascular: Reports no additional cardiovascular complaints, Denies chest pain, Denies lightheadedness, Denies Loss of Consciousness and Denies dyspnea Respiratory: Respiratory: Reports no additional respiratory complaints and Denies dyspnea Gastrointestinal: Gastrointestinal: Reports no additional gastrointestinal complaints, Denies abdominal pain, Denies melena, Denies hematochezia, Denies change in bowel habits and Denies change in stool character Genitourinary: Genitourinary: Denies hematuria, Denies urinary frequency, Denies dysuria, Denies urinary incontinence, Denies urinary hesitancy and Denies urinary urgency Musculoskeletal: Musculoskeletal: Reports no additional musculoskeletal complaints, Denies numbness and Denies tingling Comments: left sided rib pain Neurologic: Denies dizziness, Denies loss of vision, Denies numbness and Denies tingling Psychiatric: Psychiatric: Reports no additional psychiatric complaints Endocrine: Endocrine: Reports no additional endocrine complaints Hematologic/Lymphatic: Hematologic/Lymphatic: Reports no additional hematologic/lymphatic complaints Allergic/Immunologic: Allergic/Immunologic: Reports no additional allergic/immunologic complaints PMFSH Past Medical History Attestation statement: The following information was validated with the patient. Source: old records reviewed Medical History Abnormal CT of the abdomen Arthritis Back pain Bipolar II disorder Dyspnea Fibromyalgia History of MS (myocardial infarction) History of urinary incontinence Hospital discharge follow-up Hyperkalemia Lab test negative for COVID-19 virus Obesity Optic neuritis Overactive bladder Partial bowel obstruction Rectal prolapse Small bowel obstruction Surgical History H/O cystoscopy (06/08/19) History of pubovaginal sling (10/19/19) History of total left knee replacement (TKR) (11/2016) History of total right knee replacement (06/2016) Social History Social History Household Members: Family Housing: House Alcohol intake: never Patient Tobacco Use Status: Former Tobacco user Tobacco use type: Cigarette Cigarette Packs Per Day: 1 Cigarettes Per Day: 20 Years Smoked: 20 Second Hand Smoke Exposure: No Substance Use Type: Marijuana Advance Directives: No Advance Directives Information Provided: Yes service: No Current occupational status: unemployed Physical Exam ED Vital Signs: Vital Signs - 24 hr 07/15/21 13:48 Temperature 98.7 F Pulse Rate 107 H Respiratory Rate 18 Blood Pressure 127/80 Pulse Oximetry 97 BMI result Body Mass Index 46.4 Const General: cooperative, no acute distress, alert and awake Nutritional Appearance: well nourished Orientation/consciousness: patient oriented x3 Limitations: no limitations HENMT Head: Yes normal to inspection and Yes atraumatic Ears: hearing grossly normal bilaterally and external ears normal General nose exam: Normal external nose present, no nasal discharge noted and no epistaxis Face and sinus: Yes normal facial exam, No abrasion and No laceration Mouth: Normal oral and palatal mucosa present, no drooling and no muffled voice Eyes General: appearance normal, both eyes and all related structures Periorbital: periorbital findings normal Eyelids: Yes eyelids normal Conjunctivae: conjunctivae normal Pupils: Equal, round and reactive pupils present EOM: EOMs intact bilaterally Neck Neck: Yes normal visual inspection, Yes full ROM and Yes no lymphadenopathy Chest Other: pain to palpation of the left upper ribs Chest palpation & inspection: normal inspection of the chest Resp Effort & Inspection: normal respiratory effort and able to speak in complete sentences Auscultation: clear to auscultation bilaterally Cardio Rate: regular rate Rhythm: regular rhythm GI Inspection: Yes normal to inspection Neuro General: patient oriented x3 and moves all extremities Cranial nerves: Yes Equal, round and reactive pupils present Cognition (Neuro): normal cognition Motor exam (neuro): 5/5 motor strength present throughout Sensory Exam: Normal double simultaneous stimulation for sensation Coordination: [id number] test normal Extrem General: Yes normal to inspection, Yes full ROM and Yes capillary refill normal Psych Appearance: grossly normal Mental Status: mental status grossly normal Affect: normal affect Attitude: cooperative Thought process: Normal thought process present Thought content: Normal thought content present Insight: Good insight present (Psych) Medical Decision Making MDM Narrative Medical decision making narrative: Patient is a 46 year old female presenting to the emergency department today with left rib pain. Patient's physical exam showed tenderness to palpation to the left upper ribs but was otherwise unremarkable. Patient's chest x-ray showed no acute process. I explained my physical exam findings as well as all test results to the patient. I answered all questions asked by the patient. Patient received IM toradol and PO Flexeril which she stated helped her symptoms significantly. I stressed the importance of the patient taking her medication as prescribed. I stressed the importance of the patient following up with her primary care provider. I stressed the importance of the patient returning to the emergency department immediately if her symptoms were to worsen or if she were to develop any dizziness, shortness of breath, difficulty breathing, chest pain, blurry vision, loss of vision, nausea, vomiting, abdominal pain, fever, chills, back pain, or any other complaints. Patient verbalized agreement and understanding with this treatment plan and discharge. Differential Diagnosis Differential Diagnosis: rib fracture, costochondritis Medical Records Medical records reviewed: Yes I reviewed the patient's medical records. Imaging Data Chest x-ray: Attestation: I personally reviewed and interpreted this imaging study as follows: My impression: No acute fracture. Radiologist's impression: EXAMINATION: XR CHEST CLINICAL INFORMATION: Left rib pain and cough COMPARISON: November 22, 2020 TECHNIQUE: 2 views of the chest were obtained. FINDINGS: No significant abnormality is noted involving the heart, lungs, mediastinum, bony thorax or soft tissues. XR/XR chest 2V IMPRESSION: No acute disease. Dictated By: Bebo Carr MD Signed By: Electronically signed by Bebo Carr MD 07/15/21 [id number] Discharge Plan Discharge Clinical Impression: Acute costochondritis Patient Disposition: Home, Self-Care Instructions: Costochondritis (ED), Thoracic Pain (ED) Additional Instructions: Follow up with your primary care provider. Return to the emergency department immediately if your symptoms worsen or if you develop any dizziness, shortness of breath, difficulty breathing, chest pain, blurry vision, loss of vision, nausea, vomiting, abdominal pain, fever, chills, back pain, or any other complaints. Prescriptions: New cyclobenzaprine 10 mg tablet 10 mg PO TID PRN (Reason: thoracic pain) 7 Days Qty: 21 0RF No Action aspirin 81 mg tablet,delayed release (DR/EC) 81 mg PO DAILY Qty: 90 3RF imipramine HCl 10 mg tablet 10 mg PO BID Qty: 60 1RF atenolol 25 mg tablet 25 mg PO DAILY 90 Days Qty: 90 0RF ketoconazole 2 % cream 1 appl topical DAILY 3 Days Qty: 60 0RF norethindrone acetate 5 mg tablet 5 mg PO DAILY Qty: 90 0RF Rx Instructions: Take 1 tablet a day, day 15-24 every cycle Myrbetriq 50 mg tablet extended release 24 hr 50 mg PO DAILY 90 Days Qty: 30 1RF tolterodine 2 mg capsule,extended release 24hr 2 mg PO DAILY 30 Days Qty: 30 2RF acetaminophen [Tylenol Extra Strength] 500 mg tablet 500 mg PO Q6H PRN (Reason: pain or fever) Qty: 20 0RF azithromycin 250 mg tablet See Rx Instructions .ROUTE .COMPLEX Qty: 6 0RF Rx Instructions: take 500 mg today (day 1), then 250 mg for 4 days (days 2-5) sertraline PO DAILY 0RF Rx Instructions: 110 mg daily dicyclomine 10 mg capsule 10 mg PO Q6H PRN0RF diclofenac sodium 75 mg tablet,delayed release (DR/EC) 75 mg PO BID 7 Days Qty: 14 0RF Rx Instructions: Stop naproxen, meloxicam, do not take Motrin with this medicine prednisone 20 mg tablet 20 mg PO .COMPLEX Qty: 18 0RF Rx Instructions: 20 mg PO 3 p.o. daily for 3 days followed by 2 p.o. daily for 3 days follow ed by 1 p.o. daily for 3 days; cefuroxime axetil 500 mg tablet 500 mg PO BID 10 Days Qty: 20 0RF famotidine 40 mg tablet 40 mg PO BID 0RF ammonium lactate 12 % cream 1 appl topical BID 0RF clindamycin phosphate 1 % lotion topical 0RF tretinoin 0.1 % cream topical BEDTIME PRN0RF betamethasone dipropionate 0.05 % lotion topical 0RF cholestyramine (with sugar) 4 gram powder in packet 1 ea PO BID 0RF cholecalciferol (vitamin D3) 25 mcg (1,000 unit) capsule 25 mcg PO DAILY 90 Days Qty: 90 0RF clonazepam 1 mg tablet 1 mg PO TID PRN (Reason: Skin Cleansing) 0RF melatonin 10 mg capsule 10 mg BEDTIME 0RF glycopyrrolate 1 mg tablet 1 mg PO TID 0RF fluoxetine 20 mg capsule 40 mg PO DAILY 0RF aripiprazole 5 mg tablet 5 mg PO DAILY 0RF carbamazepine 200 mg tablet 200 mg PO QID 0RF bupropion HCl 300 mg tablet extended release 24 hr 300 mg PO DAILY 0RF cholecalciferol (vitamin D3) 50 mcg (2,000 unit) capsule 50 mcg PO BEDTIME 0RF primidone 50 mg tablet 100 mg PO TID 0RF pyridoxine (vitamin B6) 100 mg tablet 100 mg PO DAILY 90 Days Qty: 90 1RF pantoprazole 40 mg tablet,delayed release (DR/EC) 40 mg PO BID 0RF ibuprofen 800 mg tablet 800 mg PO BID PRN0RF gabapentin 300 mg capsule 300 mg PO TID 0RF Referrals: Lydia Galo MD [Primary Care Provider] - 2 days Interventions: ED Discharge Assessment Last Done: 07/15/21 15:02 Discharge Date/Time: 07/15/21 15:05 Print Language: Occitan
[2021-07-15] MEDS: Cyclobenzaprine HCl 10 MG TABLET PO (14:59)
[2021-07-15] MEDS: Ketorolac Tromethamine 15 MG/ML VIAL IM (14:59)
== END 2021-07-15 15:05 | disposition home or self-care (01) ==
PROVIDERS: Emergency Provider Emergency Medicine Emergency Medical Services; PCP Pediatrics
DX: R07.81 Pleurodynia (principal); Z87.891 Personal history of nicotine dependence; M94.0 Chondrocostal junction syndrome [Tietze]
CPT/HCPCS: 71046; 96372; 99283; 99284; J1885

== ENCOUNTER 2021-08-23 16:48 | Emergency (ER) | payer OTHER, SELFPAY | END 2021-08-23 17:58 | disposition left against medical advice (07) | PROVIDERS: Emergency Provider Emergency Medicine; PCP Pediatrics | DX: R07.81 Pleurodynia (principal) ==

== ENCOUNTER → 2021-08-31 08:25 | Outpatient (BNVA) | payer OTHER, SELFPAY | PROVIDERS: PCP Pediatrics | DX: Z13.89 Encounter for screening for other disorder (principal) | CPT/HCPCS: Q3014 ==

== ENCOUNTER 2021-09-15 07:12 | Outpatient (REF) | payer OTHER, SELFPAY ==
[2021-09-15 08:13] LABS: Cholesterol 290 mg/dL; Estimated Average Glucose 114 mg/dL; HDL Cholesterol 52 mg/dL; Hemoglobin A1c % 5.6 %; LDL Cholesterol Calculated 201 mg/dl; Triglycerides 189 mg/dL
== END 2021-09-15 07:13 | disposition home or self-care (01) ==
LOC: HO.LAB 07:12
PROVIDERS: PCP Pediatrics; Visit Provider Psychiatry & Neurology Psychiatry
DX: Z79.899 Other long term (current) drug therapy (principal)
CPT/HCPCS: 36415; 80061; 83036

== ENCOUNTER 2021-12-20 10:23 | Emergency (ER) | payer OTHER, SELFPAY ==
--- NOTE | ~2021-12-20 | XR_ITS ---
EXAMINATION: XR CHEST 2 VIEWS CLINICAL INFORMATION: Chest pain. COMPARISON: Prior chest radiographs, most recently 07/15/2021; CT chest dated 03/15/2020.. TECHNIQUE: Frontal and lateral views of the chest were obtained. FINDINGS: The heart, great vessels, pulmonary vasculature and mediastinum are normal. The lungs show no focal infiltrate, effusion or pneumothorax. There is mild lingular scar/subsegmental atelectasis, consistent with prior CT findings (12:25). There is no acute osseous abnormality. XR/XR chest 1V IMPRESSION: 1. No focal infiltrate or congestive heart failure is seen. 2. There is mild linear scar/subsegmental atelectasis, stable from prior examinations.
[2021-12-20 10:41] VITALS: BP 126/86; PULSE 96; RESP 18; TEMP 36.9; O2SAT 97; BMI 45.5
--- NOTE | 2021-12-20 10:45 | ECG_ITS ---
Test Reason : chest paiin/tightness Blood Pressure : / mmHG Vent. Rate : 091 BPM Atrial Rate : 091 BPM P-R Int : 150 ms QRS Dur : 094 ms QT Int : 376 ms P-R-T Axes : 059 048 068 degrees QTc Int : 462 ms Normal sinus rhythm Nonspecific T wave abnormality Abnormal ECG When compared with ECG of 22-NOV-2020 11:05, Nonspecific T wave abnormality, worse in Anterior leads Referred By: Generic ED Physician Electronically Signed By:OBDULIA DUEÑAS
[2021-12-20 11:12] LABS: MANUAL DIFF FLAG NO
[2021-12-20 11:15] LABS: Basophils Absolute Auto 0.1 X10*3/uL (0.0-0.2); Basophils Percent Auto 0.5 % (0-2); Eosinophils Absolute Auto 0.1 X10*3/uL (0.0-0.4); Eosinophils Percent Auto 1.3 % (0-4); Hemoglobin 13.1 g/dl (12.0-16.0); Imm Gran Abs Auto 0.04 X10*3/uL (0.00-0.03); Imm Gran Pct Auto 0.4 % (0.0-0.4); Lymphocytes Absolute Auto 1.8 X10*3/uL (1.2-4.9); Lymphocytes Percent Auto 17.3 % (20-40); Mean Corpuscular HGB Conc 32.8 g/dl (31.0-35.0); Mean Corpuscular Volume 82.3 fL (80.0-98.0); Mean Platelet Volume 10.3 fL (9.4-12.3); Monocytes Absolute Auto 0.6 X10*3/uL (0.1-1.2); Monocytes Percent Auto 5.7 % (2-11); Neutrophils Absolute Auto 7.8 x10*3/uL (2.0-8.3); Neutrophils Percent Auto 74.8 % (45-73); Platelet Count 314 X10*3/uL (160-400); Red Blood Count 4.86 X10*6/uL (4.20-5.50); Red Cell Distribution Width 14.7 % (11.0-16.0); White Blood Count 10.4 X10*3/uL (4.8-10.8)
[2021-12-20 11:32] LABS: Anion Gap 15 (12-20); Blood Urea Nitrogen 10 mg/dL (9-16); Calcium 8.6 mg/dL (8.4-10.2); Carbon Dioxide 24 mmol/L (22-29); Chloride 104 mmol/L (96-108); Creatinine Clr Calc Pharmacy 116.4; Estimated Glomerular Filt Rate > 60; Glucose Random 116 mg/dL (60-115); Potassium 4.4 mmol/L (3.3-5.1); Sodium 139 mmol/L (135-145)
[2021-12-20 11:34] LABS: Troponin-I High Sensitivity < 3.5 ng/L (<3.5-17.0)
[2021-12-20 18:00] VITALS: BP 121/70; PULSE 100; RESP 18; TEMP 36.6; O2SAT 97
--- NOTE | 2021-12-20 18:43 | ED.GENADULT ---
HPI - General Adult General Chief complaint: General Medical Stated complaint: chest tightness l arm nunbness Time Seen by Provider: 12/20/21 18:31 History of Present Illness HPI narrative: Patient is a 46-year-old female with a history of chest pains. No history of diabetes. Positive history of hypertension, high cholesterol. Question history of TIAs in the past. No history of blood clots. Not on control. Presents today with left-sided pinpoint chest pain going down to the arm ongoing 2 days ago and has been constant not associated with diaphoresis. No fever no chills. Not associated with exertion. Constant. Patient from home. No travel history. No leg swelling. No family history of coronary artery disease. Patient is larger in size. Related Data Home Medications Medication Instructions Recorded Confirmed aripiprazole 5 mg tablet 5 mg PO DAILY 01/26/20 10/27/20 bupropion HCl 300 mg 24 hr tablet, 300 mg PO DAILY 01/26/20 10/27/20 extended release carbamazepine 200 mg tablet 200 mg PO QID 01/26/20 10/27/20 cholecalciferol (vitamin D3) 50 50 mcg PO BEDTIME 01/26/20 10/27/20 mcg (2,000 unit) capsule clonazepam 1 mg tablet 1 mg PO TID PRN Skin Cleansing 01/26/20 10/27/20 fluoxetine 20 mg capsule 40 mg PO DAILY 01/26/20 10/27/20 glycopyrrolate 1 mg tablet 1 mg PO TID 01/26/20 10/27/20 melatonin 10 mg capsule 10 mg BEDTIME 01/26/20 10/27/20 primidone 50 mg tablet 100 mg PO TID 02/16/20 10/27/20 sertraline [Zoloft] PO DAILY 06/14/20 10/27/20 dicyclomine 10 mg capsule 10 mg PO Q6H PRN 08/25/20 10/27/20 cholestyramine (with sugar) 4 gram 1 ea PO BID 09/15/20 10/27/20 powder for susp in a packet ammonium lactate 12 % topical cream 1 appl topical BID 10/27/20 10/27/20 betamethasone dipropionate 0.05 % topical itch 10/27/20 10/27/20 lotion clindamycin phosphate 1 % lotion topical 10/27/20 10/27/20 famotidine 40 mg tablet 40 mg PO BID 10/27/20 10/27/20 tretinoin 0.1 % topical cream appl topical BEDTIME PRN 10/27/20 10/27/20 gabapentin 300 mg capsule 300 mg PO TID 06/04/21 ibuprofen 800 mg tablet 800 mg PO BID PRN 06/04/21 pantoprazole 40 mg tablet,delayed 40 mg PO BID 06/04/21 release aripiprazole 15 mg tablet 0 mg PO 08/31/21 baclofen 10 mg tablet 10 mg PO BID PRN 08/31/21 calcium carbonate 600 mg calcium 600 mg PO BID 08/31/21 (1,500 mg) tablet dicyclomine 20 mg tablet 20 mg PO QID PRN diarrhea 08/31/21 melatonin 5 mg capsule 5 mg PO BEDTIME PRN 08/31/21 solifenacin 5 mg tablet 5 mg PO DAILY 08/31/21 Previous Rx's Medication Instructions Recorded pyridoxine (vitamin B6) 100 mg 100 mg PO DAILY 90 days #90 tabs 06/23/20 tablet aspirin 81 mg tablet,delayed 81 mg PO DAILY #90 tabs 06/26/20 release acetaminophen 500 mg tablet 500 mg PO Q6H PRN pain or fever 08/19/20 (Tylenol Extra Strength) #20 tabs diclofenac sodium 75 mg 75 mg PO BID 7 days #14 tabs 08/25/20 tablet,delayed release imipramine HCl 10 mg tablet 10 mg PO BID #60 tabs 09/14/20 cholecalciferol (vitamin D3) 25 25 mcg PO DAILY 90 days #90 caps 09/15/20 mcg (1,000 unit) capsule atenolol 25 mg tablet 25 mg PO DAILY 90 days #90 tabs 11/03/20 azithromycin 250 mg tablet See Rx Instructions PO .COMPLEX #6 11/22/20 tabs cefuroxime axetil 500 mg tablet 500 mg PO BID 10 days #20 tabs 12/01/20 prednisone 20 mg tablet 20 mg PO .COMPLEX #18 tabs 12/01/20 ketoconazole 2 % topical cream 1 appl topical DAILY 3 days #60 12/07/20 grams norethindrone acetate 5 mg tablet 5 mg PO DAILY #90 tabs 02/10/21 tolterodine 2 mg capsule,extended 2 mg PO DAILY 30 days #30 caps 06/29/21 release 24 hr cyclobenzaprine 10 mg tablet 10 mg PO TID PRN thoracic pain 7 07/15/21 days #21 tabs mirabegron 50 mg tablet,extended 50 mg PO DAILY 90 days #90 tabs 10/19/21 release 24 hr (Myrbetriq) oxybutynin chloride 10 mg 10 mg PO DAILY 90 days #90 tabs 10/19/21 tablet,extended release 24 hr Allergies Allergy/AdvReac Type Severity Reaction Status Date / Time Penicillins Allergy Severe ITCHING/SWE Verified 08/31/21 08:31 LLING doxycycline [DOXYCYCLINE] Allergy Intermediate SEVERE Verified 08/31/21 08:31 ITCHING, pruritis sulfamethoxazole [Bactrim] Allergy Unknown Unknown Verified 08/31/21 08:31 Sulfa (Sulfonamide Allergy Chest Pain Verified 08/31/21 08:31 Antibiotics) Review of Systems Review of Systems: No fever no chills no cough no congestion or upper respiratory symptoms Yes all other systems are reviewed and are negative PMFSH Past Medical History Attestation statement: The following information was validated with the patient. Medical History Abnormal CT of the abdomen Arthritis Back pain Bipolar II disorder Dyspnea Fibromyalgia History of AR (myocardial infarction) History of urinary incontinence Hospital discharge follow-up Hyperkalemia Lab test negative for COVID-19 virus Obesity Optic neuritis Overactive bladder Partial bowel obstruction Rectal prolapse Small bowel obstruction Surgical History H/O cystoscopy (06/08/19) History of pubovaginal sling (10/19/19) History of total left knee replacement (TKR) (11/2016) History of total right knee replacement (06/2016) Social History Social History Household Members: Family Housing: House Alcohol intake: never Patient Tobacco Use Status: Former Tobacco user Tobacco use type: Cigarette Cigarette Packs Per Day: 1 Cigarettes Per Day: 20 Years Smoked: 20 Second Hand Smoke Exposure: No Substance Use Type: Marijuana Substance Use Frequency: Occasionally Advance Directives: No Advance Directives Information Provided: Yes Patient : No service: No Current occupational status: unemployed Physical Exam ED Vital Signs: Vital Signs - 24 hr 12/20/21 10:41 12/20/21 18:00 12/20/21 20:19 Temperature 98.4 F 97.9 F 98.1 F Pulse Rate 96 100 94 Respiratory Rate 18 18 18 Blood Pressure 126/86 121/70 134/84 Pulse Oximetry 97 97 96 Oxygen Delivery Method Room Air Room Air Room Air BMI result Body Mass Index 45.5 Appearance: Alert. Oriented X3. No acute distress. Eyes: Pupils equal, round and reactive to light. ENT: Pharynx normal. Neck: Normal inspection. Neck supple. No lymph nodes noted. No crepitus CVS: Normal heart rate and rhythm. Pulses normal. Normal S1 and S2 Respiratory: No respiratory distress. Breath sounds normal. No Wheezing. No rales Abdomen: Soft and nontender. No rigidity. No distention. good BS x4 Skin: Skin warm and dry. Normal skin color. Normal skin turgor. Extremities: No lower extremity edema. Neurovascular intact to all extremities. No Lacerations. No Rash Neuro: Oriented X 3. No motor deficit. No sensory deficit. Moving all extermities. No slurred speech Medical Decision Making MDM Narrative Medical decision making narrative: Patient's EKG showed a sinus pattern heart rate is 80 [place] QRS QT within normal limits it is unchanged from previous EKG. Her chest pain was atypical she has no risk factors for pulmonary emboli history not consistent with PE. Patient's 1st set of troponin was negative however she does have multiple risk factors including hypertension, high cholesterol. There is a questionable history of TIA versus NSTEMI in the past. More likely patient had a near syncopal episode. Given patient's EKG is unchanged. Will get a 2nd set of troponin. If they are unchanged heart patient follow-up on an outpatient basis. Second set of troponin were negative. Patient well-appearing. Chest x-ray showed no pneumonia pneumothorax. No risk for PE. Will discharge patient home. Heart score is less than 3 as patient's chest pain is atypical. Did have multiple risk factor with negative troponin no changes in EKG. Lab Data Result diagrams: 12/20/21 11:09 12/20/21 11:09 Labs: Lab Results 12/20/21 12/20/21 12/20/21 Range/Units 11:09 11:09 11:09 WBC 10.4 (4.8-10.8) X10*3/uL RBC 4.86 (4.20-5.50) X10*6/uL Hgb 13.1 (12.0-16.0) g/dl Hct 40.0 (37.0-47.0) % MCV 82.3 (80.0-98.0) fL MCH 27.0 (27.0-33.0) pg MCHC 32.8 (31.0-35.0) g/dl RDW 14.7 (11.0-16.0) % Plt Count 314 (160-400) X10*3/uL MPV 10.3 (9.4-12.3) fL Immature Gran % (Auto) 0.4 (0.0-0.4) % Neut % (Auto) 74.8 H (45-73) % Lymph % (Auto) 17.3 L (20-40) % [place] % (Auto) 5.7 (2-11) % Eos % (Auto) 1.3 (0-4) % Baso % (Auto) 0.5 (0-2) % Lymph # (Auto) 1.8 (1.2-4.9) X10*3/uL [place] # (Auto) 0.6 (0.1-1.2) X10*3/uL Eos # (Auto) 0.1 (0.0-0.4) X10*3/uL Baso # (Auto) 0.1 (0.0-0.2) X10*3/uL Abs Immat Gran (auto) 0.04 H (0.00-0.03) X10*3/uL Absolute Neuts (auto) 7.8 (2.0-8.3) x10*3/uL Absolute Nucleated RBC 0.000 (0.0-0.012) X10*3/uL Nucleated RBC % (auto) 0.0 (0.0-0.2) /100WBC Sodium 139 (135-145) mmol/L Potassium 4.4 (3.3-5.1) mmol/L Chloride 104 (96-108) mmol/L Carbon Dioxide 24 (22-29) mmol/L Anion Gap 15 (12-20) BUN 10 (9-16) mg/dL Creatinine 0.76 (0.5-1.4) mg/dL Estim Creat Clear Calc 116.4 Estimated GFR > 60 Random Glucose 116 H (60-115) mg/dL Calcium 8.6 (8.4-10.2) mg/dL Troponin I High Sens < 3.5 (<3.5-17.0) ng/L 12/20/21 Range/Units 19:35 WBC (4.8-10.8) X10*3/uL RBC (4.20-5.50) X10*6/uL Hgb (12.0-16.0) g/dl Hct (37.0-47.0) % MCV (80.0-98.0) fL MCH (27.0-33.0) pg MCHC (31.0-35.0) g/dl RDW (11.0-16.0) % Plt Count (160-400) X10*3/uL MPV (9.4-12.3) fL Immature Gran % (Auto) (0.0-0.4) % Neut % (Auto) (45-73) % Lymph % (Auto) (20-40) % [place] % (Auto) (2-11) % Eos % (Auto) (0-4) % Baso % (Auto) (0-2) % Lymph # (Auto) (1.2-4.9) X10*3/uL [place] # (Auto) (0.1-1.2) X10*3/uL Eos # (Auto) (0.0-0.4) X10*3/uL Baso # (Auto) (0.0-0.2) X10*3/uL Abs Immat Gran (auto) (0.00-0.03) X10*3/uL Absolute Neuts (auto) (2.0-8.3) x10*3/uL Absolute Nucleated RBC (0.0-0.012) X10*3/uL Nucleated RBC % (auto) (0.0-0.2) /100WBC Sodium (135-145) mmol/L Potassium (3.3-5.1) mmol/L Chloride (96-108) mmol/L Carbon Dioxide (22-29) mmol/L Anion Gap (12-20) BUN (9-16) mg/dL Creatinine (0.5-1.4) mg/dL Estim Creat Clear Calc Estimated GFR Random Glucose (60-115) mg/dL Calcium (8.4-10.2) mg/dL Troponin I High Sens < 3.5 (<3.5-17.0) ng/L Discharge Plan Discharge Clinical Impression: Chest pain Patient Disposition: Home, Self-Care Instructions: Chest Pain (ED) Prescriptions: No Action aspirin 81 mg tablet,delayed release (DR/EC) 81 mg PO DAILY Qty: 90 3RF imipramine HCl 10 mg tablet 10 mg PO BID Qty: 60 1RF atenolol 25 mg tablet 25 mg PO DAILY 90 Days Qty: 90 0RF ketoconazole 2 % cream 1 appl topical DAILY 3 Days Qty: 60 0RF norethindrone acetate 5 mg tablet 5 mg PO DAILY Qty: 90 0RF Rx Instructions: Take 1 tablet a day, day 15-24 every cycle tolterodine 2 mg capsule,extended release 24hr 2 mg PO DAILY 30 Days Qty: 30 2RF Myrbetriq 50 mg tablet extended release 24 hr 50 mg PO DAILY 90 Days Qty: 90 1RF oxybutynin chloride 10 mg tablet extended release 24 hr 10 mg PO DAILY 90 Days Qty: 90 1RF acetaminophen [Tylenol Extra Strength] 500 mg tablet 500 mg PO Q6H PRN (Reason: pain or fever) Qty: 20 0RF azithromycin 250 mg tablet See Rx Instructions .ROUTE .COMPLEX Qty: 6 0RF Rx Instructions: take 500 mg today (day 1), then 250 mg for 4 days (days 2-5) cyclobenzaprine 10 mg tablet 10 mg PO TID PRN (Reason: thoracic pain) 7 Days Qty: 21 0RF sertraline PO DAILY Rx Instructions: 110 mg daily dicyclomine 10 mg capsule 10 mg PO Q6H PRN diclofenac sodium 75 mg tablet,delayed release (DR/EC) 75 mg PO BID 7 Days Qty: 14 0RF Rx Instructions: Stop naproxen, meloxicam, do not take Motrin with this medicine prednisone 20 mg tablet 20 mg PO .COMPLEX Qty: 18 0RF Rx Instructions: 20 mg PO 3 p.o. daily for 3 days followed by 2 p.o. daily for 3 days followed by 1 p.o. daily for 3 days; cefuroxime axetil 500 mg tablet 500 mg PO BID 10 Days Qty: 20 0RF famotidine 40 mg tablet 40 mg PO BID ammonium lactate 12 % cream 1 appl topical BID clindamycin phosphate 1 % lotion topical tretinoin 0.1 % cream topical BEDTIME PRN betamethasone dipropionate 0.05 % lotion topical cholestyramine (with sugar) 4 gram powder in packet 1 ea PO BID cholecalciferol (vitamin D3) 25 mcg (1,000 unit) capsule 25 mcg PO DAILY 90 Days Qty: 90 0RF clonazepam 1 mg tablet 1 mg PO TID PRN (Reason: Skin Cleansing) melatonin 10 mg capsule 10 mg BEDTIME glycopyrrolate 1 mg tablet 1 mg PO TID fluoxetine 20 mg capsule 40 mg PO DAILY aripiprazole 5 mg tablet 5 mg PO DAILY carbamazepine 200 mg tablet 200 mg PO QID bupropion HCl 300 mg tablet extended release 24 hr 300 mg PO DAILY cholecalciferol (vitamin D3) 50 mcg (2,000 unit) capsule 50 mcg PO BEDTIME primidone 50 mg tablet 100 mg PO TID pyridoxine (vitamin B6) 100 mg tablet 100 mg PO DAILY 90 Days Qty: 90 1RF pantoprazole 40 mg tablet,delayed release (DR/EC) 40 mg PO BID ibuprofen 800 mg tablet 800 mg PO BID PRN gabapentin 300 mg capsule 300 mg PO TID baclofen 10 mg tablet 10 mg PO BID PRN dicyclomine 20 mg tablet 20 mg PO QID PRN (Reason: diarrhea) aripiprazole 15 mg tablet 0 mg PO calcium carbonate 600 mg calcium (1,500 mg) tablet 600 mg PO BID melatonin 5 mg capsule 5 mg PO BEDTIME PRN solifenacin 5 mg tablet 5 mg PO DAILY Referrals: Jason Capone MD [Physician] -
[2021-12-20 20:11] LABS: Troponin-I High Sensitivity < 3.5 ng/L (<3.5-17.0)
[2021-12-20 20:19] VITALS: BP 134/84; PULSE 94; RESP 18; TEMP 36.7; O2SAT 96
== END 2021-12-20 20:55 | disposition home or self-care (01) ==
PROVIDERS: Emergency Provider Emergency Medicine Emergency Medical Services; PCP Student in an Organized Health Care Education/Training Program
DX: R07.9 Chest pain, unspecified (principal); I10 Essential (primary) hypertension; E78.5 Hyperlipidemia, unspecified; Z87.891 Personal history of nicotine dependence; F12.90 Cannabis use, unspecified, uncomplicated; E66.9 Obesity, unspecified; Z68.42 Body mass index [BMI] 45.0-49.9, adult; Z79.82 Long term (current) use of aspirin; Z79.899 Other long term (current) drug therapy
CPT/HCPCS: 36415; 71045; 80048; 84484; 85025; 93005; 99283; 99284

== ENCOUNTER 2021-12-31 06:05 | Emergency (ER) | payer OTHER, SELFPAY ==
--- NOTE | ~2021-12-31 | XR_ITS ---
EXAMINATION: CR X-RAY CHEST 2 VIEW, RIBS LEFT CLINICAL INFORMATION: Cough with rib pain. COMPARISON: None TECHNIQUE: 4 views of the left ribs and a PA and lateral views of the chest were obtained. Skin marker overlies the left lower ribs. FINDINGS: Mild linear markings are seen in the lingula. The lungs otherwise clear. There are no pleural effusions. No pneumothorax. The heart and mediastinal structures are unremarkable. Multilevel posterolateral left 7th-11th rib fractures are noted. The soft tissues are unremarkable. XR/XR ribs LT 2V IMPRESSION: 1. Multilevel posterolateral left rib fractures of a subacute appearance. Correlate with physical exam and trauma history. 2. Mild linear atelectasis versus scarring in the lingula. This appears mildly more pronounced compared to the previous study.
--- NOTE | ~2021-12-31 | XR_ITS ---
EXAMINATION: CR X-RAY CHEST 2 VIEW, RIBS LEFT CLINICAL INFORMATION: Cough with rib pain. COMPARISON: None TECHNIQUE: 4 views of the left ribs and a PA and lateral views of the chest were obtained. Skin marker overlies the left lower ribs. FINDINGS: Mild linear markings are seen in the lingula. The lungs otherwise clear. There are no pleural effusions. No pneumothorax. The heart and mediastinal structures are unremarkable. Multilevel posterolateral left 7th-11th rib fractures are noted. The soft tissues are unremarkable. XR/XR chest 2V IMPRESSION: 1. Multilevel posterolateral left rib fractures of a subacute appearance. Correlate with physical exam and trauma history. 2. Mild linear atelectasis versus scarring in the lingula. This appears mildly more pronounced compared to the previous study.
[2021-12-31 06:30] VITALS: BMI 45.5
--- NOTE | 2021-12-31 06:36 | ED.BACK ---
HPI - Back Pain/Injury General Chief Complaint: Back Pain/Injury Stated Complaint: thinks broken rib Time Seen by Provider: 12/31/21 06:36 Source: patient Mode of arrival: ambulatory Limitations: no limitations History of Present Illness HPI Narrative: Patient with prior history of broken ribs, she coughed and felt a pop on her left side when she coughed MD elicited complaint: back pain Pertinent past history: other (prior rib fractures) Onset (ago): day(s) Severity: moderate Quality: sharp Location: left flank Radiation: none Exacerbating factors: movement, coughing/sneezing and lifting Relieving factors: none Associated symptoms: denies other symptoms Related Data Home Medications Medication Instructions Recorded Confirmed aripiprazole 5 mg tablet 5 mg PO DAILY 01/26/20 10/27/20 bupropion HCl 300 mg 24 hr tablet, 300 mg PO DAILY 01/26/20 10/27/20 extended release carbamazepine 200 mg tablet 200 mg PO QID 01/26/20 10/27/20 cholecalciferol (vitamin D3) 50 50 mcg PO BEDTIME 01/26/20 10/27/20 mcg (2,000 unit) capsule clonazepam 1 mg tablet 1 mg PO TID PRN Skin Cleansing 01/26/20 10/27/20 fluoxetine 20 mg capsule 40 mg PO DAILY 01/26/20 10/27/20 glycopyrrolate 1 mg tablet 1 mg PO TID 01/26/20 10/27/20 melatonin 10 mg capsule 10 mg BEDTIME 01/26/20 10/27/20 primidone 50 mg tablet 100 mg PO TID 02/16/20 10/27/20 sertraline [Zoloft] PO DAILY 06/14/20 10/27/20 dicyclomine 10 mg capsule 10 mg PO Q6H PRN 08/25/20 10/27/20 cholestyramine (with sugar) 4 gram 1 ea PO BID 09/15/20 10/27/20 powder for susp in a packet ammonium lactate 12 % topical cream 1 appl topical BID 10/27/20 10/27/20 betamethasone dipropionate 0.05 % topical itch 10/27/20 10/27/20 lotion clindamycin phosphate 1 % lotion topical 10/27/20 10/27/20 famotidine 40 mg tablet 40 mg PO BID 10/27/20 10/27/20 tretinoin 0.1 % topical cream appl topical BEDTIME PRN 10/27/20 10/27/20 gabapentin 300 mg capsule 300 mg PO TID 06/04/21 ibuprofen 800 mg tablet 800 mg PO BID PRN 06/04/21 pantoprazole 40 mg tablet,delayed 40 mg PO BID 06/04/21 release aripiprazole 15 mg tablet 0 mg PO 08/31/21 baclofen 10 mg tablet 10 mg PO BID PRN 08/31/21 calcium carbonate 600 mg calcium 600 mg PO BID 08/31/21 (1,500 mg) tablet dicyclomine 20 mg tablet 20 mg PO QID PRN diarrhea 08/31/21 melatonin 5 mg capsule 5 mg PO BEDTIME PRN 08/31/21 solifenacin 5 mg tablet 5 mg PO DAILY 08/31/21 Previous Rx's Medication Instructions Recorded pyridoxine (vitamin B6) 100 mg 100 mg PO DAILY 90 days #90 tabs 06/23/20 tablet aspirin 81 mg tablet,delayed 81 mg PO DAILY #90 tabs 06/26/20 release acetaminophen 500 mg tablet 500 mg PO Q6H PRN pain or fever 08/19/20 (Tylenol Extra Strength) #20 tabs diclofenac sodium 75 mg 75 mg PO BID 7 days #14 tabs 08/25/20 tablet,delayed release imipramine HCl 10 mg tablet 10 mg PO BID #60 tabs 09/14/20 cholecalciferol (vitamin D3) 25 25 mcg PO DAILY 90 days #90 caps 09/15/20 mcg (1,000 unit) capsule atenolol 25 mg tablet 25 mg PO DAILY 90 days #90 tabs 11/03/20 azithromycin 250 mg tablet See Rx Instructions PO .COMPLEX #6 11/22/20 tabs cefuroxime axetil 500 mg tablet 500 mg PO BID 10 days #20 tabs 12/01/20 prednisone 20 mg tablet 20 mg PO .COMPLEX #18 tabs 12/01/20 ketoconazole 2 % topical cream 1 appl topical DAILY 3 days #60 12/07/20 grams norethindrone acetate 5 mg tablet 5 mg PO DAILY #90 tabs 02/10/21 tolterodine 2 mg capsule,extended 2 mg PO DAILY 30 days #30 caps 06/29/21 release 24 hr cyclobenzaprine 10 mg tablet 10 mg PO TID PRN thoracic pain 7 07/15/21 days #21 tabs mirabegron 50 mg tablet,extended 50 mg PO DAILY 90 days #90 tabs 10/19/21 release 24 hr (Myrbetriq) oxybutynin chloride 10 mg 10 mg PO DAILY 90 days #90 tabs 10/19/21 tablet,extended release 24 hr naproxen 500 mg tablet (Naprosyn) 500 mg PO BID #20 tabs 12/31/21 oxycodone-acetaminophen 5 mg-325 1 tab PO Q8H PRN pain #14 tabs 12/31/21 mg tablet (Percocet) Allergies Allergy/AdvReac Type Severity Reaction Status Date / Time Penicillins Allergy Severe ITCHING/SWE Verified 08/31/21 08:31 LLING doxycycline [DOXYCYCLINE] Allergy Intermediate SEVERE Verified 08/31/21 08:31 ITCHING, pruritis sulfamethoxazole [Bactrim] Allergy Unknown Unknown Verified 08/31/21 08:31 Sulfa (Sulfonamide Allergy Chest Pain Verified 08/31/21 08:31 Antibiotics) Review of Systems Constitutional: Constitutional: Reports no additional constitutional complaints Eyes: Eyes: Reports no additional eye complaints ENT: Denies dizziness Cardiovascular: Cardiovascular: Reports no additional cardiovascular complaints Respiratory: Respiratory: Reports as per HPI Gastrointestinal: Gastrointestinal: Reports no additional gastrointestinal complaints Genitourinary: Genitourinary: Reports no additional female genitourinary complaints Musculoskeletal: Musculoskeletal: Reports no additional musculoskeletal complaints Integumentary/Breasts: Skin/Breast: Denies rash Neurologic: Reports system reviewed and no additional complaints, except as documented, Denies dizziness and Denies Sensory deficit (Neuro) Psychiatric: Psychiatric: Denies anxiety [facility] Past Medical History Medical History Abnormal CT of the abdomen Arthritis Back pain Bipolar II disorder Dyspnea Fibromyalgia History of NH (myocardial infarction) History of urinary incontinence Hospital discharge follow-up Hyperkalemia Lab test negative for COVID-19 virus Obesity Optic neuritis Overactive bladder Partial bowel obstruction Rectal prolapse Small bowel obstruction Surgical History H/O cystoscopy (06/08/19) History of pubovaginal sling (10/19/19) History of total left knee replacement (TKR) (11/2016) History of total right knee replacement (06/2016) Social History Social History Household Members: Family Housing: House Alcohol intake: never Patient Tobacco Use Status: Never used Tobacco Tobacco use type: Cigarette Cigarette Packs Per Day: 1 Cigarettes Per Day: 20 Years Smoked: 20 Second Hand Smoke Exposure: No Use of substances other than those prescribed or required for medical reasons: No Substance Use Type: Marijuana Advance Directives: No Patient : No service: No Current occupational status: unemployed Physical Exam Vital Signs: Vital Signs: BMI result Body Mass Index 45.5 Const: General: healthy appearing Nutritional Appearance: obese Orientation/consciousness: oriented to person and patient oriented x3 Limitations: no limitations HEENT: Head: Yes normal to inspection Ears: external ears normal General nose exam: Normal external nose present Mouth: Normal oral and palatal mucosa present and oropharynx normal Throat: Yes posterior oropharynx normal Eyes: General: appearance normal, both eyes and all related structures Neck: Other: supple Neck: Yes normal visual inspection Chest: Other: reproducible left rib tenderness Resp: Auscultation: clear to auscultation bilaterally Cardio: Jugular venous distension: no JVD Rate: regular rate Rhythm: regular rhythm Heart sounds: S1 normal heart sound present and S2 normal heart sound present GI: Inspection: Yes normal to inspection Palpation (GI): Soft to palpation, nontender and No hepatosplenomegaly present Auscultation: normal bowel sounds : General: Yes no CVA tenderness Back/Spine/Pelvis: Back: no CVA tenderness Skin: General skin exam: no rashes or lesions noted Neuro: General: oriented to person and patient oriented x3 Cranial nerves: Yes CN's II-XII intact bilaterally Motor exam (neuro): 5/5 motor strength present throughout Sensory Exam: No Sensory deficit (Neuro) Extrem: General: Yes normal to inspection Psych: Appearance: grossly normal Course Reevaluation(s) Reevaluation #1: Patient with a history of broken ribs, no with subacute fractures will dc on pain medication and have patient follow up with her doctor Time: 08:05 MDM - Back Pain/Injury Imaging Data Chest x-ray: Radiologist's impression: Multilevel posterolateral left 7th-11th rib fractures are noted. The soft tissues are unremarkable. XR/XR chest 2V IMPRESSION: ? 1. Multilevel posterolateral left rib fractures of a subacute appearance. Correlate with physical exam and trauma history. 2. Mild linear atelectasis versus scarring in the lingula. This appears mildly more pronounced compared to the previous study.? Discharge Plan Discharge Clinical Impression: Rib fracture Patient Disposition: Home, Self-Care Prescriptions: New naproxen [Naprosyn] 500 mg tablet 500 mg PO BID Qty: 20 0RF oxycodone-acetaminophen [Percocet] 5-325 mg tablet 1 tab PO Q8H PRN (Reason: pain) Qty: 14 0RF Rx Instructions: Partial Fill upon patient request. No Action aspirin 81 mg tablet,delayed release (DR/EC) 81 mg PO DAILY Qty: 90 3RF imipramine HCl 10 mg tablet 10 mg PO BID Qty: 60 1RF atenolol 25 mg tablet 25 mg PO DAILY 90 Days Qty: 90 0RF ketoconazole 2 % cream 1 appl topical DAILY 3 Days Qty: 60 0RF norethindrone acetate 5 mg tablet 5 mg PO DAILY Qty: 90 0RF Rx Instructions: Take 1 tablet a day, day 15-24 every cycle tolterodine 2 mg capsule,extended release 24hr 2 mg PO DAILY 30 Days Qty: 30 2RF Myrbetriq 50 mg tablet extended release 24 hr 50 mg PO DAILY 90 Days Qty: 90 1RF oxybutynin chloride 10 mg tablet extended release 24 hr 10 mg PO DAILY 90 Days Qty: 90 1RF acetaminophen [Tylenol Extra Strength] 500 mg tablet 500 mg PO Q6H PRN (Reason: pain or fever) Qty: 20 0RF azithromycin 250 mg tablet See Rx Instructions .ROUTE .COMPLEX Qty: 6 0RF Rx Instructions: take 500 mg today (day 1), then 250 mg for 4 days (days 2-5) cyclobenzaprine 10 mg tablet 10 mg PO TID PRN (Reason: thoracic pain) 7 Days Qty: 21 0RF sertraline PO DAILY Rx Instructions: 110 mg daily dicyclomine 10 mg capsule 10 mg PO Q6H PRN diclofenac sodium 75 mg tablet,delayed release (DR/EC) 75 mg PO BID 7 Days Qty: 14 0RF Rx Instructions: Stop naproxen, meloxicam, do not take Motrin with this medicine prednisone 20 mg tablet 20 mg PO .COMPLEX Qty: 18 0RF Rx Instructions: 20 mg PO 3 p.o. daily for 3 days followed by 2 p.o. daily for 3 days followed by 1 p.o. daily for 3 days; cefuroxime axetil 500 mg tablet 500 mg PO BID 10 Days Qty: 20 0RF famotidine 40 mg tablet 40 mg PO BID ammonium lactate 12 % cream 1 appl topical BID clindamycin phosphate 1 % lotion topical tretinoin 0.1 % cream topical BEDTIME PRN betamethasone dipropionate 0.05 % lotion topical cholestyramine (with sugar) 4 gram powder in packet 1 ea PO BID cholecalciferol (vitamin D3) 25 mcg (1,000 unit) capsule 25 mcg PO DAILY 90 Days Qty: 90 0RF clonazepam 1 mg tablet 1 mg PO TID PRN (Reason: Skin Cleansing) melatonin 10 mg capsule 10 mg BEDTIME glycopyrrolate 1 mg tablet 1 mg PO TID fluoxetine 20 mg capsule 40 mg PO DAILY aripiprazole 5 mg tablet 5 mg PO DAILY carbamazepine 200 mg tablet 200 mg PO QID bupropion HCl 300 mg tablet extended release 24 hr 300 mg PO DAILY cholecalciferol (vitamin D3) 50 mcg (2,000 unit) capsule 50 mcg PO BEDTIME primidone 50 mg tablet 100 mg PO TID pyridoxine (vitamin B6) 100 mg tablet 100 mg PO DAILY 90 Days Qty: 90 1RF pantoprazole 40 mg tablet,delayed release (DR/EC) 40 mg PO BID ibuprofen 800 mg tablet 800 mg PO BID PRN gabapentin 300 mg capsule 300 mg PO TID baclofen 10 mg tablet 10 mg PO BID PRN dicyclomine 20 mg tablet 20 mg PO QID PRN (Reason: diarrhea) aripiprazole 15 mg tablet 0 mg PO calcium carbonate 600 mg calcium (1,500 mg) tablet 600 mg PO BID melatonin 5 mg capsule 5 mg PO BEDTIME PRN solifenacin 5 mg tablet 5 mg PO DAILY
[2021-12-31] MEDS: Ketorolac Tromethamine 60 MG/2 ML VIAL IM (06:47)
[2021-12-31 08:13] VITALS: BP 129/78; PULSE 90; RESP 18; O2SAT 98
== END 2021-12-31 08:19 | disposition home or self-care (01) ==
PROVIDERS: Emergency Provider Emergency Medicine; PCP Student in an Organized Health Care Education/Training Program
DX: S22.42XA Multiple fractures of ribs, left side, initial encounter for closed fracture (principal); X50.9XXA Other and unspecified overexertion or strenuous movements or postures, initial encounter; Y93.9 Activity, unspecified; Y92.9 Unspecified place or not applicable; Y99.9 Unspecified external cause status
CPT/HCPCS: 71046; 71100; 96372; 99284; J1885

== ENCOUNTER 2022-02-01 09:04 | Outpatient (REF) | payer OTHER, SELFPAY ==
--- NOTE | ~2022-02-01 | MM_ITS ---
EXAMINATION: BONE DENSITOMETRY CLINICAL INDICATION: EXAMINATION: BONE DENSITOMETRY CLINICAL INDICATION: Menopausal. Age 46. COMPARISON: None (current study represents initial baseline exam). TECHNIQUE: Using a [employer] DXA System (software version: 13.1) manufactured by [employer], dual-energy x-ray absorptiometry was performed of the lumbar spine and left hip. The images are of good technical quality. Based on ISCD (International Society for Clinical Densitometry) standards of reporting, Z-scores instead of T-scores are reported in this premenopausal woman. Summary results are attached. FINDINGS: AP SPINE L1-L4: BMD 1.123 g/cm2, T-score -0.5, Z-score -1.6, Z-score within expected range for age. LEFT FEMUR, NECK: BMD 0.813 g/cm2, T-score -1.6, Z-score -1.8, Z-score within expected range for age. LEFT FEMUR, TOTAL: BMD 0.939 g/cm2, T-score -0.5, Z-score -1.1, Z-score within expected range for age. IDENTIFIED RISK FACTORS: History of fracture (adult). HISTORY OF FRACTURE: Other. MEDICATIONS: Calcium, vitamin D. MM/XR DEXA axial skeleton IMPRESSION: 1. DIAGNOSIS: Based on the lowest Z-score value of -1.8 in the femoral neck, the patient's bone density is within the expected range for age. 2. 10-YEAR FRACTURE RISK PREDICTION, FRAX: Not performed in perimenopausal patient. 3. Treatment Recommendations: NOF guidelines recommend consideration for treatment in postmenopausal women and men age 50 and older presenting with the following: -A hip or vertebral (clinical or morphometric) fracture. -T-score less than or equal to -2.5 at the femoral neck or spine after appropriate evaluation to exclude secondary causes. -Low bone mass at the hip or spine and a 10-year fracture probability by FRAX of greater than or equal to 3% for hip fracture or greater than or equal to 20% for major osteoporotic fracture based on the [place] adapted WHO algorithm. 4. Other Recommendations: All treatment decisions require clinical judgment and consideration of individual patient factors, including patient preferences, comorbidities, previous drug use, risk factors not captured in the FRAX model (e.g. frailty, falls, vitamin D deficiency, increased bone turnover, interval significant decline in bone density) and possible under or overestimation of fracture risk by FRAX. FUTURE SCAN RECOMMENDATION: People with diagnosed cases of osteoporosis or at high risk for fracture should have regular bone mineral density tests. For patients eligible for Medicare, routine testing is allowed once every 2 years. The testing frequency can be increased to one year for patients who have rapidly progressing disease, those who are receiving or discontinuing medical therapy to restore bone mass, or have additional risk factors.
== END 2022-02-01 09:05 | disposition home or self-care (01) ==
LOC: HO.MAMMO 09:04
PROVIDERS: PCP Student in an Organized Health Care Education/Training Program; Visit Provider Student in an Organized Health Care Education/Training Program
DX: Z13.820 Encounter for screening for osteoporosis (principal); S22.42XA Multiple fractures of ribs, left side, initial encounter for closed fracture; Z78.0 Asymptomatic menopausal state
CPT/HCPCS: 77080

== ENCOUNTER 2022-03-07 08:40 | Emergency (ER) | payer OTHER, SELFPAY ==
--- NOTE | ~2022-03-07 | XR_ITS ---
EXAMINATION: XR CHEST CLINICAL INFORMATION: Cough with question broken ribs right side COMPARISON: 12/31/2021 chest and RIBS TECHNIQUE: 2 views of the chest were obtained. FINDINGS: No significant abnormality is noted involving the heart, lungs, mediastinum, bony thorax or soft tissues. No right-sided rib fractures are seen. The previously described left-sided rib fractures are not well identified on the current exam. Some minimal atelectasis is seen adjacent to the left heart border. XR/XR chest 2V IMPRESSION: No acute intrathoracic disease. No acute displaced rib fractures are seen.
[2022-03-07 08:48] VITALS: BP 142/102; PULSE 98; RESP 96; TEMP 36.6; O2SAT 18; BMI 46.0
--- NOTE | 2022-03-07 08:58 | ED.GENADULT ---
HPI - General Adult General Chief complaint: General Medical Stated complaint: possible broken ribs Time Seen by Provider: 03/07/22 08:58 Source: patient Mode of arrival: ambulatory Limitations: no limitations History of Present Illness HPI narrative: Patient is a 46 year old assigned female at with a history of anxiety and HTN presenting to the emergency department today with right sided chest pain with movement and coughing. Patient states that the right side of her chest has been hurting lately after she has been coughing more frequently. Patient states that it is her chest wall and hurts when she takes a deep breath or moves the wrong way. Patient denies any dizziness, lightheadedness, abdominal pain, nausea, vomiting, fever, chills, blurry vision, double vision, loss of vision, difficulty breathing, shortness of breath, back pain, night sweats, pain with urination, increased urinary frequency, increased urinary urgency, blood in her urine or stool, syncope or a near syncopal episode, recent trauma or falls, bowel incontinence, bladder incontinence, bowel retention, bladder retention, or any other complaints at this time. Onset (ago): day(s) Location: chest Radiation: non-radiation Severity: mild Severity scale (1-10): 3 Quality: dull Relieving factors: none Exacerbating factors: movement and other (deep breaths) Associated symptoms: denies other symptoms Treatments prior to arrival: none Related Data Home Medications Medication Instructions Recorded Confirmed aripiprazole 5 mg tablet 5 mg PO DAILY 01/26/20 10/27/20 bupropion HCl 300 mg 24 hr tablet, 300 mg PO DAILY 01/26/20 10/27/20 extended release carbamazepine 200 mg tablet 200 mg PO QID 01/26/20 10/27/20 cholecalciferol (vitamin D3) 50 50 mcg PO BEDTIME 01/26/20 10/27/20 mcg (2,000 unit) capsule clonazepam 1 mg tablet 1 mg PO TID PRN Skin Cleansing 01/26/20 10/27/20 fluoxetine 20 mg capsule 40 mg PO DAILY 01/26/20 10/27/20 glycopyrrolate 1 mg tablet 1 mg PO TID 01/26/20 10/27/20 melatonin 10 mg capsule 10 mg BEDTIME 01/26/20 10/27/20 primidone 50 mg tablet 100 mg PO TID 02/16/20 10/27/20 sertraline [Zoloft] PO DAILY 06/14/20 10/27/20 dicyclomine 10 mg capsule 10 mg PO Q6H PRN 08/25/20 10/27/20 cholestyramine (with sugar) 4 gram 1 ea PO BID 09/15/20 10/27/20 powder for susp in a packet ammonium lactate 12 % topical cream 1 appl topical BID 10/27/20 10/27/20 betamethasone dipropionate 0.05 % topical itch 10/27/20 10/27/20 lotion clindamycin phosphate 1 % lotion topical 10/27/20 10/27/20 famotidine 40 mg tablet 40 mg PO BID 10/27/20 10/27/20 tretinoin 0.1 % topical cream appl topical BEDTIME PRN 10/27/20 10/27/20 gabapentin 300 mg capsule 300 mg PO TID 06/04/21 ibuprofen 800 mg tablet 800 mg PO BID PRN 06/04/21 pantoprazole 40 mg tablet,delayed 40 mg PO BID 06/04/21 release aripiprazole 15 mg tablet 0 mg PO 08/31/21 baclofen 10 mg tablet 10 mg PO BID PRN 08/31/21 calcium carbonate 600 mg calcium 600 mg PO BID 08/31/21 (1,500 mg) tablet dicyclomine 20 mg tablet 20 mg PO QID PRN diarrhea 08/31/21 melatonin 5 mg capsule 5 mg PO BEDTIME PRN 08/31/21 solifenacin 5 mg tablet 5 mg PO DAILY 08/31/21 Previous Rx's Medication Instructions Recorded pyridoxine (vitamin B6) 100 mg 100 mg PO DAILY 90 days #90 tabs 06/23/20 tablet aspirin 81 mg tablet,delayed 81 mg PO DAILY #90 tabs 06/26/20 release acetaminophen 500 mg tablet 500 mg PO Q6H PRN pain or fever 08/19/20 (Tylenol Extra Strength) #20 tabs diclofenac sodium 75 mg 75 mg PO BID 7 days #14 tabs 08/25/20 tablet,delayed release imipramine HCl 10 mg tablet 10 mg PO BID #60 tabs 09/14/20 cholecalciferol (vitamin D3) 25 25 mcg PO DAILY 90 days #90 caps 09/15/20 mcg (1,000 unit) capsule atenolol 25 mg tablet 25 mg PO DAILY 90 days #90 tabs 11/03/20 azithromycin 250 mg tablet See Rx Instructions PO .COMPLEX #6 11/22/20 tabs cefuroxime axetil 500 mg tablet 500 mg PO BID 10 days #20 tabs 12/01/20 prednisone 20 mg tablet 20 mg PO .COMPLEX #18 tabs 12/01/20 ketoconazole 2 % topical cream 1 appl topical DAILY 3 days #60 12/07/20 grams norethindrone acetate 5 mg tablet 5 mg PO DAILY #90 tabs 02/10/21 tolterodine 2 mg capsule,extended 2 mg PO DAILY 30 days #30 caps 06/29/21 release 24 hr cyclobenzaprine 10 mg tablet 10 mg PO TID PRN thoracic pain 7 07/15/21 days #21 tabs mirabegron 50 mg tablet,extended 50 mg PO DAILY 90 days #90 tabs 10/19/21 release 24 hr (Myrbetriq) oxybutynin chloride 10 mg 10 mg PO DAILY 90 days #90 tabs 10/19/21 tablet,extended release 24 hr naproxen 500 mg tablet (Naprosyn) 500 mg PO BID #20 tabs 12/31/21 oxycodone-acetaminophen 5 mg-325 1 tab PO Q8H PRN pain #14 tabs 12/31/21 mg tablet (Percocet) Allergies Allergy/AdvReac Type Severity Reaction Status Date / Time Penicillins Allergy Severe ITCHING/SWE Verified 08/31/21 08:31 LLING doxycycline [DOXYCYCLINE] Allergy Intermediate SEVERE Verified 08/31/21 08:31 ITCHING, pruritis sulfamethoxazole [Bactrim] Allergy Unknown Unknown Verified 08/31/21 08:31 Sulfa (Sulfonamide Allergy Chest Pain Verified 08/31/21 08:31 Antibiotics) Review of Systems Constitutional: Constitutional: Reports no additional constitutional complaints, Denies chills, Denies fever(s) and Denies night sweats Eyes: Eyes: Reports no additional eye complaints, Denies blurry vision, Denies change in vision, Denies diplopia, Denies eye discharge, Denies loss of vision and Denies eye pain ENT: Denies dizziness Cardiovascular: Cardiovascular: Reports no additional cardiovascular complaints, Reports chest pain, Denies lightheadedness, Denies Loss of Consciousness and Denies dyspnea Respiratory: Respiratory: Reports no additional respiratory complaints and Denies dyspnea Gastrointestinal: Gastrointestinal: Reports no additional gastrointestinal complaints, Denies abdominal pain, Denies melena, Denies hematochezia, Denies change in bowel habits and Denies change in stool character Genitourinary: Genitourinary: Denies hematuria, Denies urinary frequency, Denies dysuria, Denies urinary incontinence, Denies urinary hesitancy and Denies urinary urgency Musculoskeletal: Musculoskeletal: Reports no additional musculoskeletal complaints, Denies numbness and Denies tingling Neurologic: Denies dizziness, Denies loss of vision, Denies numbness and Denies tingling Psychiatric: Psychiatric: Reports no additional psychiatric complaints Endocrine: Endocrine: Reports no additional endocrine complaints Hematologic/Lymphatic: Hematologic/Lymphatic: Reports no additional hematologic/lymphatic complaints Allergic/Immunologic: Allergic/Immunologic: Reports no additional allergic/immunologic complaints [facility] Past Medical History Attestation statement: The following information was validated with the patient. Source: old records reviewed Medical History Abnormal CT of the abdomen Arthritis Back pain Bipolar II disorder Dyspnea Fibromyalgia History of GA (myocardial infarction) History of urinary incontinence Hospital discharge follow-up Hyperkalemia Lab test negative for COVID-19 virus Obesity Optic neuritis Overactive bladder Partial bowel obstruction Rectal prolapse Small bowel obstruction Surgical History H/O cystoscopy (06/08/19) History of pubovaginal sling (10/19/19) History of total left knee replacement (TKR) (11/2016) History of total right knee replacement (06/2016) Social History Social History Household Members: Family Housing: House Alcohol intake: never Patient Tobacco Use Status: Never used Tobacco Tobacco use type: Cigarette Cigarette Packs Per Day: 1 Cigarettes Per Day: 20 Years Smoked: 20 Second Hand Smoke Exposure: No Substance Use Type: Marijuana Advance Directives: No Advance Directives Information Provided: Yes service: No Current occupational status: unemployed Physical Exam ED Vital Signs: Vital Signs - 24 hr 03/07/22 08:48 03/07/22 09:20 Temperature 97.8 F Pulse Rate 98 Respiratory Rate 96 H Blood Pressure 142/102 H Pulse Oximetry 18 L 97 Oxygen Delivery Method Room Air Room Air BMI result Body Mass Index 46.0 Const General: cooperative, no acute distress, alert and awake Nutritional Appearance: well nourished Orientation/consciousness: patient oriented x3 Limitations: no limitations HENMT Head: Yes normal to inspection and Yes atraumatic Ears: hearing grossly normal bilaterally and external ears normal General nose exam: Normal external nose present, no nasal discharge noted and no epistaxis Face and sinus: Yes normal facial exam, No abrasion and No laceration Mouth: Normal oral and palatal mucosa present, no drooling and no muffled voice Eyes General: appearance normal, both eyes and all related structures Periorbital: periorbital findings normal Eyelids: Yes eyelids normal Conjunctivae: conjunctivae normal Pupils: Equal, round and reactive pupils present EOM: EOMs intact bilaterally Neck Neck: Yes normal visual inspection, Yes full ROM and Yes no lymphadenopathy Chest Chest palpation & inspection: normal inspection of the chest Resp Effort & Inspection: normal respiratory effort and able to speak in complete sentences Auscultation: clear to auscultation bilaterally Cardio Rate: regular rate Rhythm: regular rhythm GI Inspection: Yes normal to inspection Neuro General: patient oriented x3 and moves all extremities Cranial nerves: Yes Equal, round and reactive pupils present Cognition (Neuro): normal cognition Motor exam (neuro): 5/5 motor strength present throughout Sensory Exam: Normal double simultaneous stimulation for sensation Coordination: [id number] test normal Extrem General: Yes normal to inspection, Yes full ROM and Yes capillary refill normal Psych Appearance: grossly normal Mental Status: mental status grossly normal Affect: normal affect Attitude: cooperative Thought process: Normal thought process present Thought content: Normal thought content present Insight: Good insight present (Psych) Medications Administered Discontinued Medications Generic Name Dose Route Start Last Admin Trade Name Duq PRN Reason Stop Dose Admin Ketorolac Tromethamine 15 mg 03/07/22 09:17 03/07/22 09:31 Ketorolac Tromethamine 15 Mg/Ml Vial IM 03/07/22 09:18 15 mg ONCE ONE Administration Medical Decision Making MDM Narrative Medical decision making narrative: Patient is a 46 year old assigned female at with a history of anxiety and HTN presenting to the emergency department today with right sided chest wall pain. Patient's physical exam was unremarkable. Patient's chest x-ray showed no acute process. I explained my physical exam findings as well as all test results to the patient. I answered all questions asked by the patient. Patient received IM Toradol which she stated helped her symptoms significantly. I stressed the importance of the patient taking her medication as prescribed. I stressed the importance of the patient following up with her primary care provider. I stressed the importance of the patient returning to the emergency department immediately if her symptoms were to worsen or if she were to develop any dizziness, shortness of breath, difficulty breathing, chest pain, blurry vision, loss of vision, nausea, vomiting, abdominal pain, fever, chills, back pain, or any other complaints. Patient verbalized agreement and understanding with this treatment plan and discharge. Medical Records Medical records reviewed: Yes I reviewed the patient's medical records. Imaging Data Chest x-ray: Attestation: I personally reviewed and interpreted this imaging study as follows: My impression: No acute process. Radiologist's impression: EXAMINATION: XR CHEST CLINICAL INFORMATION: Cough with question broken ribs right side COMPARISON: 12/31/2021 chest and RIBS TECHNIQUE: 2 views of the chest were obtained. FINDINGS: No significant abnormality is noted involving the heart, lungs, mediastinum, bony thorax or soft tissues. No right-sided rib fractures are seen. The previously described left-sided rib fractures are not well identified on the current exam. Some minimal atelectasis is seen adjacent to the left heart border. XR/XR chest 2V IMPRESSION: No acute intrathoracic disease. No acute displaced rib fractures are seen. Dictated By: Robert Farr MD Signed By: Electronically signed by Robert Farr MD 03/07/22 0917 Discharge Plan Discharge Clinical Impression: Acute costochondritis Patient Disposition: Home, Self-Care Instructions: Costochondritis (ED) Additional Instructions: Use the incentive spirometer as instructed. Follow up with your primary care provider. Return to the emergency department immediately if your symptoms worsen or if you develop any dizziness, shortness of breath, difficulty breathing, chest pain, blurry vision, loss of vision, nausea, vomiting, abdominal pain, fever, chills, back pain, or any other complaints. Prescriptions: No Action aspirin 81 mg tablet,delayed release (DR/EC) 81 mg PO DAILY Qty: 90 3RF imipramine HCl 10 mg tablet 10 mg PO BID Qty: 60 1RF atenolol 25 mg tablet 25 mg PO DAILY 90 Days Qty: 90 0RF ketoconazole 2 % cream 1 appl topical DAILY 3 Days Qty: 60 0RF norethindrone acetate 5 mg tablet 5 mg PO DAILY Qty: 90 0RF Rx Instructions: Take 1 tablet a day, day 15-24 every cycle tolterodine 2 mg capsule,extended release 24hr 2 mg PO DAILY 30 Days Qty: 30 2RF Myrbetriq 50 mg tablet extended release 24 hr 50 mg PO DAILY 90 Days Qty: 90 1RF oxybutynin chloride 10 mg tablet extended release 24 hr 10 mg PO DAILY 90 Days Qty: 90 1RF acetaminophen [Tylenol Extra Strength] 500 mg tablet 500 mg PO Q6H PRN (Reason: pain or fever) Qty: 20 0RF azithromycin 250 mg tablet See Rx Instructions .ROUTE .COMPLEX Qty: 6 0RF Rx Instructions: take 500 mg today (day 1), then 250 mg for 4 days (days 2-5) cyclobenzaprine 10 mg tablet 10 mg PO TID PRN (Reason: thoracic pain) 7 Days Qty: 21 0RF naproxen [Naprosyn] 500 mg tablet 500 mg PO BID Qty: 20 0RF oxycodone-acetaminophen [Percocet] 5-325 mg tablet 1 tab PO Q8H PRN (Reason: pain) Qty: 14 0RF Rx Instructions: Partial Fill upon patient request. sertraline PO DAILY Rx Instructions: 110 mg daily dicyclomine 10 mg capsule 10 mg PO Q6H PRN diclofenac sodium 75 mg tablet,delayed release (DR/EC) 75 mg PO BID 7 Days Qty: 14 0RF Rx Instructions: Stop naproxen, meloxicam, do not take Motrin with this medicine prednisone 20 mg tablet 20 mg PO .COMPLEX Qty: 18 0RF Rx Instructions: 20 mg PO 3 p.o. daily for 3 days followed by 2 p.o. daily for 3 days followed by 1 p.o. daily for 3 days; cefuroxime axetil 500 mg tablet 500 mg PO BID 10 Days Qty: 20 0RF famotidine 40 mg tablet 40 mg PO BID ammonium lactate 12 % cream 1 appl topical BID clindamycin phosphate 1 % lotion topical tretinoin 0.1 % cream topical BEDTIME PRN betamethasone dipropionate 0.05 % lotion topical cholestyramine (with sugar) 4 gram powder in packet 1 ea PO BID cholecalciferol (vitamin D3) 25 mcg (1,000 unit) capsule 25 mcg PO DAILY 90 Days Qty: 90 0RF clonazepam 1 mg tablet 1 mg PO TID PRN (Reason: Skin Cleansing) melatonin 10 mg capsule 10 mg BEDTIME glycopyrrolate 1 mg tablet 1 mg PO TID fluoxetine 20 mg capsule 40 mg PO DAILY aripiprazole 5 mg tablet 5 mg PO DAILY carbamazepine 200 mg tablet 200 mg PO QID bupropion HCl 300 mg tablet extended release 24 hr 300 mg PO DAILY cholecalciferol (vitamin D3) 50 mcg (2,000 unit) capsule 50 mcg PO BEDTIME primidone 50 mg tablet 100 mg PO TID pyridoxine (vitamin B6) 100 mg tablet 100 mg PO DAILY 90 Days Qty: 90 1RF pantoprazole 40 mg tablet,delayed release (DR/EC) 40 mg PO BID ibuprofen 800 mg tablet 800 mg PO BID PRN gabapentin 300 mg capsule 300 mg PO TID baclofen 10 mg tablet 10 mg PO BID PRN dicyclomine 20 mg tablet 20 mg PO QID PRN (Reason: diarrhea) aripiprazole 15 mg tablet 0 mg PO calcium carbonate 600 mg calcium (1,500 mg) tablet 600 mg PO BID melatonin 5 mg capsule 5 mg PO BEDTIME PRN solifenacin 5 mg tablet 5 mg PO DAILY Referrals: Mery Torre MD [Primary Care Provider] - Interventions: ED Discharge Assessment Last Done: 03/07/22 09:59 Discharge Date/Time: 03/07/22 10:02 Print Language: Kyrgyz
--- OUTSIDE RECORDS SUMMARY | 2022-03-07 09:00 | XMS_ITS | Continuity of Care Document ---
:1975 Author Organization [address], [address] [place] [address]- Care Team Providers Name Role Phone Tati Walker MD Primary Care Physician Encounter [facility] [place] Date(s): 10/05/19 - 11/04/[address], [address] [place] [address]- [facility] Attending Physician: Admangela, Kentrell Admitting Physician: AdmtrKentrell Referring Physician: Admtr, [id number] Allergies, Adverse Reactions, Alerts Substance Reaction Severity Status doxycycline Active penicillin Active [id number]-[id number] DS Active Immunizations Given and Recorded Vaccine Date Status Refusal Reason influenza virus vaccine, inactivated1 12/31/17 Recorded 1Result Comment: [01/20/2018] Afluria Quad Done at [facility] Medications Abilify 5 mg oral tablet 5 mg, 1, tablet, By Mouth, Daily, # 30 tablet, Refills 0, Maintenance, 09/27/19 8:36:00 EDT Start Date: 09/27/19 Status: Orderedaspirin 81 mg oral delayed release tablet 81 mg, 1, tablet, By Mouth, Daily, # 30 tablet, Refills 0, Maintenance, 09/27/19 11:41:00 EDT Start Date: 09/27/19 Status: OrderedbuPROPion 300 mg/24 hours (XL) oral tablet, extended release 1 tablet = 300 mg, By Mouth, Daily, # 30 tablet, 0 Refills, Maintenance, 09/27/19 8:38:00 EDT, ER Tablet Start Date: 09/27/19 Status: Orderedcholecalciferol 2000 intl units oral capsule 1 capsule = 2,000 International_Units, By Mouth, Daily, 0 Refills, Maintenance, 09/27/19 8:38:00 EDT, Capsule Start Date: 09/27/19 Status: OrderedclonazePAM 1 mg oral tablet 1 tablet = 1 mg, By Mouth, 3 times a day, 0 Refills, Maintenance, 09/24/18 9:13:49 EDT, Tablet Start Date: 09/24/18 Status: OrderedclonazePAM 1 mg oral tablet 1 tablet = 1 mg, By Mouth, 3 times a day, 0 Refills, Maintenance, 09/27/19 8:37:00 EDT, Tablet Start Date: 09/27/19 Status: OrderedFLUoxetine 20 mg oral capsule 40 mg, 2, capsule, By Mouth, Daily, # 60 capsule, Refills 0, Maintenance, 09/27/19 8:37:00 EDT Start Date: 09/27/19 Status: Orderedglycopyrrolate 1 mg oral tablet 1 mg, 1, tablet, By Mouth, 3 times a day, Refills 0, Maintenance, 09/24/18 9:14:06 EDT Start Date: 09/24/18 Status: Orderedglycopyrrolate 1 mg oral tablet 1 mg, 1, tablet, By Mouth, 3 times a day, # 21 tablet, Refills 0, Maintenance, 09/27/19 8:39:00 EDT Start Date: 09/27/19 Stop Date: 10/04/19 Status: Orderedimipramine 10 mg oral tablet 1 tablet = 10 mg, By Mouth, Daily, # 75 tablet, 0 Refills, Maintenance, 09/27/19 8:38:00 EDT, Tablet Start Date: 09/27/19 Status: OrderedMelatonin Daily at bedtime, 0 Refills, Maintenance, 09/24/18 9:13:32 EDT Start Date: 09/24/18 Status: Orderedmelatonin 10 mg oral capsule 1 capsule = 10 mg, By Mouth, Daily at bedtime, 0 Refills, Maintenance, 09/27/19 8:38:00 EDT Start Date: 09/27/19 Status: Orderednorethindrone 5 mg oral tablet 5 mg, 1, tablet, By Mouth, Daily, takes 2 weeks per month, # 30 tablet, Refills 0, Maintenance, 09/27/19 8:39:00 EDT Start Date: 09/27/19 Status: Orderedprimidone 50 mg oral tablet 50 mg, 1, tablet, By Mouth, 2 times a day, # 60 tablet, Refills 0, Maintenance, 09/27/19 8:37:00 EDT Start Date: 09/27/19 Status: OrderedPROzac 40 mg oral capsule 1 capsule = 40 mg, By Mouth, Daily, # 90 capsule, 0 Refills, Maintenance, 09/24/18 9:13:24 EDT, Capsule Start Date: 09/24/18 Status: Ordered Social History Social History Type Response Smoking Status Never (less than 100 in life time) entered on: 09/02/19 Sex
--- OUTSIDE RECORDS SUMMARY | 2022-03-07 09:00 | XMS_ITS | Continuity of Care Document ---
:1975 Author Organization [facility] Address [address] [place] [address], [address] [place] [address]- Care Team Providers Name Role Phone Geovanni KLINE, Asma Primary Care Physician Encounter [facility] Date(s): 09/27/20 - 10/27/20 [facility] [address] [address]- Allergies, Adverse Reactions, Alerts Substance Reaction Severity Status doxycycline tongue itchy Active penicillin swell up mouth face Active sulfa drugs sweating arm was numg face swelling Active Bactrim unknown Active SMZ-TMP DS arms shakey weak Active Immunizations Given and Recorded Vaccine Date Status Refusal Reason influenza virus vaccine, inactivated1 12/31/17 Recorded 1Result Comment: [01/20/2018] Afluria Quad Done at [facility] Medications Abilify 5 mg oral tablet 5 mg, 1, tablet, By Mouth, Daily in AM, # 30 tablet, Refills 0, Maintenance, 09/27/19 8:36:00 EDT Start Date: 09/27/19 Status: Orderedaspirin 81 mg oral delayed release tablet 81 mg, 1, tablet, By Mouth, Daily in AM, # 30 tablet, Refills 0, Maintenance, 09/27/19 11:41:00 EDT Start Date: 09/27/19 Status: Orderedatenolol 25 mg oral tablet 25 mg, 1, tablet, By Mouth, Daily in AM, # 30 tablet, Refills 0, Maintenance, 09/26/20 13:21:00 EDT,Partial fill upon patient request if the prescription is for a schedule II opioid drug. Start Date: 09/26/20 Status: OrderedBetamethasone Dipropionate 0.05% Lotion Topically, 2 times a day, 0 Refills, Maintenance, 09/27/20 18:04:00 EDT, Partial fill upon patient request if the prescription is for a schedule II opioid drug. Start Date: 09/27/20 Status: OrderedbuPROPion 300 mg/24 hours (XL) oral tablet, extended release 1 tablet = 300 mg, By Mouth, Daily in AM, # 30 tablet, 0 Refills, Maintenance, 09/27/19 8:38:00 EDT,ER Tablet Start Date: 09/27/19 Status: OrderedcarBAMazepine 100 mg oral capsule, extended release 1 capsule = 100 mg, By Mouth, 4 times a day, 0 Refills, Maintenance, 07/12/20 10:18:00 EDT, Partial fill upon patient request if the prescription is for a schedule II opioid drug. Start Date: 07/12/20 Status: Orderedcholecalciferol 2000 intl units oral capsule 1 capsule = 2,000 International_Units, By Mouth, Daily in AM, 0 Refills, Maintenance, 09/27/19 8:38:00 EDT, Capsule Start Date: 09/27/19 Status: Orderedcholestyramine 4 g/5.5 g oral powder for reconstitution = 8 Gm, By Mouth, 2 times a day, # 231 Gm, 0 Refills, Maintenance, 09/26/20 13:22:00 EDT, REC Powder, Partial fill upon patient request if the prescription is for a schedule II opioid drug. Start Date: 09/26/20 Status: OrderedclonazePAM 1 mg oral tablet 1 tablet = 1 mg, By Mouth, 3 times a day, 0 Refills, Maintenance, 09/24/18 9:13:49 EDT, Tablet Start Date: 09/24/18 Status: OrderedclonazePAM 1 mg oral tablet 1 tablet = 1 mg, By Mouth, 3 times a day, 0 Refills, Maintenance, 09/27/19 8:37:00 EDT, Tablet Start Date: 09/27/19 Status: OrderedDicyclomine = 20 mg, By Mouth, 4 times a day, 0 Refills, Maintenance, 09/27/20 17:51:00 EDT, Partial fill upon patient request if the prescription is for a schedule II opioid drug. Start Date: 09/27/20 Status: Orderedfamotidine 10 mg oral tablet 1 tablet = 10 mg, By Mouth, 2 times a day, # 28 tablet, 0 Refills, Maintenance, 09/26/20 13:23:00 EDT, Tablet, Partial fill upon patient request if the prescription is for a schedule II opioid drug. Start Date: 09/26/20 Status: OrderedFLUoxetine 20 mg oral capsule 40 mg, 2, capsule, By Mouth, Daily in AM, # 60 capsule, Refills 0, Maintenance, 09/27/19 8:37:00 EDT Start Date: 09/27/19 Status: Orderedglycopyrrolate 1 mg oral tablet 1 mg, 1, tablet, By Mouth, 3 times a day, # 21 tablet, Refills 0, Maintenance, 09/27/19 8:39:00 EDT Start Date: 09/27/19 Stop Date: 10/04/19 Status: OrderedHydroCORTisone 0.5% Topical 1 application, Topically, prn, 0 Refills, Maintenance, Cream Start Date: 09/27/20 Status: Orderedibuprofen 600 mg oral tablet 600 mg, 1, tablet, By Mouth, Every 6 hours, PRN, # 40 tablet, Refills 0, Tot. Refills 0, Maintenance, for pain, 10/20/20 11:42:00 EDT, Route to Pharmacy Electronically, [facility] #[id number], Partial fill upon patient request if the prescription... Start Date: 10/20/20 Status: Orderedketoconazole 1% topical shampoo Topically, 0 Refills, Maintenance, 09/27/20 18:04:00 EDT, Partial fill upon patient request if the prescription is for a schedule II opioid drug. Start Date: 09/27/20 Status: OrderedMelatonin = 5 mg, By Mouth, Daily at bedtime, 0 Refills, Maintenance, 09/27/20 17:56:00 EDT, Partial fill uponpatient request if the prescription is for a schedule II opioid drug. Start Date: 09/27/20 Status: OrderedMiscellaneous Rx 0 Refills, Maintenance, clindamycin phosphate lotion, 09/27/20 18:06:00 EDT Start Date: 09/27/20 Status: OrderedMiscellaneous Rx 0 Refills, Maintenance, compound cream hydroquinone 6%, 09/27/20 18:07:00 EDT Start Date: 09/27/20 Status: Orderedmometasone 0.1% topical cream 1 application, Topically, Daily, to both elbows several times a day, # 15 Gm, 0 Refills, Maintenance, 09/27/20 18:01:00 EDT, Cream, Partial fill upon patient request if the prescription is for a schedule II opioid drug. Start Date: 09/27/20 Status: OrderedMyrbetriq 50 mg oral tablet, extended release 1 tablet = 50 mg, By Mouth, Daily, # 30 tablet, 5 Refills, Maintenance, 10/24/20 11:24:00 EDT, [facility] #[id number], Partial fill upon patient request if the prescription is for a schedule II opioid drug., 157.48, cm, 10/20/20 11:27:00 EDT, Hei... Start Date: 10/24/20 Status: Orderednorethindrone 5 mg oral tablet 5 mg, 1, tablet, By Mouth, Daily, takes 2 weeks per month, # 30 tablet, Refills 0, Maintenance, 09/27/19 8:39:00 EDT Start Date: 09/27/19 Status: OrderedoxyCODONE 5 mg oral tablet 5 mg, 1, tablet, By Mouth, Every 6 hours, PRN, # 7 tablet, Refills 0, Tot. Refills 0, Maintenance, for pain, 10/13/20 9:41:00 EDT, Route to Pharmacy Electronically, [facility] #[id number], Partialfill upon patient request if the prescription is... Start Date: 10/13/20 Status: OrderedoxyCODONE 5 mg oral tablet 5 mg, 1, tablet, By Mouth, Every 6 hours, PRN, # 5 tablet, Refills 0, Tot. Refills 0, Maintenance, for pain, 10/20/20 11:43:00 EDT, [facility], Partial fill upon patient request if the prescription is for a schedule II opioid drug. Start Date: 10/20/20 Status: Orderedprimidone 50 mg oral tablet 50 mg, 1, tablet, By Mouth, 3 times a day, # 60 tablet, Refills 0, Maintenance, 09/27/19 8:37:00 EDT Start Date: 09/27/19 Status: OrderedVitamin B6 100 mg oral tablet 1 tablet = 100 mg, By Mouth, Daily in AM, 0 Refills, Maintenance, 07/12/20 10:17:00 EDT, Partial fill upon patient request if the prescription is for a schedule II opioid drug. Start Date: 07/12/20 Status: Ordered Problem List Condition Effective Dates Status Health Status Informant Acne(Confirmed) Active Allergic rhinitis(Confirmed) Active Anxiety(Confirmed) Active Rectocele(Confirmed) Active Mixed incontinence(Confirmed) Active Knee meniscus pain(Confirmed) Active Common migraine(Confirmed) Active TMJ syndrome(Confirmed) Active Social History Social History Type Response Tobacco Use: 4 or less cigarettes(le ss than 1/4 pack)/day in last 30 days. Sex
--- OUTSIDE RECORDS SUMMARY | 2022-03-07 09:00 | XMS_ITS | Continuity of Care Document ---
:1975 Author Organization [facility] Address [address] [place] [address], [address] [place] [address]- Care Team Providers Name Role Phone Geovanni KLINE, Asma Primary Care Physician [place] [facility] [place](s): 12/08/20 - 01/07/21 [facility] [address], [address] [place] [id number] Attending Physician: Kentrell Shelby Admitting Physician: Kentrell Shelby Referring Physician: AdmKentrell miller Allergies, Adverse Reactions, Alerts Substance Reaction Severity Status doxycycline tongue itchy Active penicillin swell up mouth face Active sulfa drugs sweating arm was numg face swelling Active Bactrim unknown Active SMZ-TMP DS arms shakey weak Active Immunizations Given and Recorded Vaccine Date Status Refusal Reason influenza virus vaccine, inactivated1 12/31/17 Recorded 1Result Comment: [01/20/2018] Afluria Quad Done at [facility] Medications Abilify 5 mg oral tablet [...] 600 mg, 1, tablet, By Mouth, Every 8 hours, PRN, # 40 tablet, Refills 0, Tot. Refills 0, Maintenance, for pain, 11/02/20 11:00:00 EDT, Route to Pharmacy Electronically, [facility] #[id number], Partial fill upon patient request if the prescription... Start Date: 11/02/20 Status: Orderedketoconazole 1% topical shampoo Topically, 0 [...] tablet, 5 Refills, Maintenance, 10/24/20 11:24:00 EDT, [facility] #[id number], Partial fill upon patient request if the prescription is for a schedule II opioid drug., 157.48, cm, 10/20/20 11:27:00 EDT, Hei... Start Date: 10/24/20 Status: Orderednorethindrone 5 mg oral tablet 5 mg, 1, tablet, By Mouth, Daily, takes 2 weeks per month, # 30 tablet, Refills 0, Maintenance, 09/27/19 8:39:00 EDT Start Date: 09/27/19 Status: Orderedoxybutynin 10 mg/24 hr oral tablet, extended release 1 tablet = 10 mg, By Mouth, Daily, # 30 tablet, 5 Refills, Maintenance, 12/13/20 16:41:00 EDT, ER Tablet, [facility] #[id number], Partial fill upon patient request if the prescription is for a schedule II opioid drug., 157.48, cm, 11/24/20 8:27:0... Start Date: 12/13/20 Status: Orderedprimidone 50 mg oral tablet 50 mg, 1, tablet, By Mouth, 3 times a day, # 60 tablet, Refills 0, Maintenance, 09/27/19 8:37:00 EDT Start Date: 09/27/19 Status: OrderedTylenol 325 mg oral tablet See Instructions, PRN, 2 tablet By Mouth Every 6 hours prn pain, # 30 tablet, Refills 0, Tot. Refills 0, Maintenance, for pain, 11/24/20 8:42:00 EDT, Instructions Replace Required Details, Route to Pharmacy Electronically, [facility] #[id number],... Start Date: 11/24/20 Status: OrderedVitamin B6 100 mg oral tablet [...]
--- OUTSIDE RECORDS SUMMARY | 2022-03-07 09:00 | XMS_ITS | Continuity of Care Document ---
:1975 Author Organization [facility] Address [address] [place] [address], [address] [place] [address]- Care Team Providers Name Role Phone Geovanni KLINE, Asma [id number] - 05/18/[facility] [address] [place] [id number] Attending Physician: Kentrell Shelby Admitting Physician: Kentrell Shelby Referring Physician: Kentrell Shelby Allergies, Adverse Reactions, Alerts Substance Reaction Severity Status doxycycline tongue itchy Active penicillin swell up mouth face Active sulfa drugs sweating arm was numg face swelling Active SMZ-TMP DS arms shakey weak Active Bactrim unknown Active Immunizations Given and Recorded Vaccine Date Status Refusal Reason influenza virus vaccine, inactivated1 12/31/17 Recorded 1Result Comment: [01/20/2018] Afluria Quad Done at [facility] Medications Abilify 5 mg oral tablet [...] 11/02/20 11:00:00 EDT, Route to Pharmacy Electronically, [facility] #[id number], Partial fill upon patient request if the [...] 50 mg oral tablet, extended release 1 tablet, By Mouth, Daily, # 30 tablet, 5 Refills, [facility] #[id number], 157.48, cm, 218:27:00 EDT, Height, 104, kg, 11/24/20 8:27:00 EDT, Dry Weight Start Date: 04/06/21 Status: Orderednorethindrone 5 mg oral tablet 5 mg, 1, tablet, By Mouth, Daily, takes 2 weeks per month, # 30 tablet, Refills 0, Maintenance, 09/27/19 8:39:00 EDT Start Date: 09/27/19 Status: Orderedoxybutynin 10 mg/24 hr oral tablet, extended release 1 tablet = 10 mg, By Mouth, Daily, # 30 tablet, 5 Refills, Maintenance, 12/13/20 16:41:00 EDT, ER Tablet, [facility] #[id number], Partial fill upon patient request if the [...] Replace Required Details, Route to Pharmacy Electronically, [facility] #[id number],... Start Date: 11/24/20 Status: OrderedVitamin B6 100 [...]
--- OUTSIDE RECORDS SUMMARY | 2022-03-07 09:00 | XMS_ITS | Continuity of Care Document ---
:1975 Author Organization [address], [address] [place] [address]- Care Team Providers Name Role Phone Tati Walker MD Primary Care Physician [place] [facility] [place] 10/05/19 - 10/12/[address], [address] [place] [address]- [facility] Attending Physician: Genaro Linares MD Allergies, Adverse Reactions, Alerts Substance Reaction Severity Status doxycycline Active penicillin Active SMZ-TMP DS Active Immunizations Given and Recorded Vaccine Date Status Refusal Reason influenza virus vaccine, inactivated1 12/31/17 Recorded 1Result Comment: [01/20/2018] Afluria Quad Done at [facility] Medications Abilify 5 mg oral [...]
--- OUTSIDE RECORDS SUMMARY | 2022-03-07 09:00 | XMS_ITS | Continuity of Care Document ---
:1975 Author Organization [facility] Address [address] [place] [address], [address] [place] [address]- Care Team Providers Name Role Phone Geovanni KLINE, Asma Primary Care Physician Encounter [facility] Date(s): 10/13/20 - 11/12/20 [facility] [address] [address]- Allergies, Adverse Reactions, Alerts Substance Reaction Severity Status doxycycline tongue itchy Active penicillin swell up mouth face Active sulfa drugs sweating arm was numg face swelling Active Bactrim unknown Active SMZ-TMP DS arms shakey weak Active Immunizations Given and Recorded Vaccine Date Status Refusal Reason influenza virus vaccine, inactivated1 12/31/17 Recorded 1Result Comment: [01/20/2018] Afluria Quad Done at [facility] Medications Abilify 5 mg oral tablet [...] 11/02/20 11:00:00 EDT, Route to Pharmacy Electronically, [facility] #[id number], Partial fill upon patient request if the [...] tablet, 5 Refills, Maintenance, 10/24/20 11:24:00 EDT, [facility] #[id number], Partial fill upon patient request if the [...] 10/13/20 9:41:00 EDT, Route to Pharmacy Electronically, [facility] #[id number], Partialfill upon patient request if the prescription [...]
--- OUTSIDE RECORDS SUMMARY | 2022-03-07 09:00 | XMS_ITS | Continuity of Care Document ---
:1975 Author Organization [facility] Address [address] [place] [address], [address] [place] [address]- Care Team Providers Name Role Phone Geovanni KLINE, Hector Primary [id number]/25[facility] - 05/18/[facility] [address], [address] [place] [address]- Attending Physician: Hannah Eckert MD Admitting Physician: Hannah Eckert MD Referring Physician: Hector Galarza MD Allergies, Adverse Reactions, Alerts Substance Reaction Severity Status doxycycline tongue itchy Active penicillin swell up mouth face Active sulfa drugs sweating arm was numg face swelling Active Bactrim unknown Active SMZ-TMP DS arms shakey weak Active Immunizations Given and Recorded Vaccine Date Status Refusal Reason influenza virus vaccine, inactivated1 12/31/17 Recorded 1Result Comment: [01/20/2018] Afluria Quad Done at [facility] Medications Abilify 5 mg oral [...] 11/02/20 11:00:00 EDT, Route to Pharmacy Electronically, [facility] #[id number], Partial fill upon patient request if the [...] Mouth, Daily, # 30 tablet, 5 Refills, [facility] #[id number], 157.48, cm, 218:27:00 EDT, Height, 104, kg, [...] Refills, Maintenance, 12/13/20 16:41:00 EDT, ER Tablet, [facility] #[id number], Partial fill upon patient request if the [...] Replace Required Details, Route to Pharmacy Electronically, [facility] #[id number],... Start Date: 11/24/20 Status: OrderedVitamin B6 100 [...]
--- OUTSIDE RECORDS SUMMARY | 2022-03-07 09:00 | XMS_ITS | Continuity of Care Document ---
:1975 Author Organization [facility] Address [address] [place] [address]- Care Team Providers Name Role Phone Geovanni KLINE, Hector Primary Care Physician [place] [facility] [place]05/21 - 04/07/[address] [address] Discharge Disposition: A-D/C Home Attending Physician: Shena Trivedi NP Admitting Physician: Shena Trivedi NP Referring Physician: Shena Trivedi NP Allergies, Adverse Reactions, Alerts Substance Reaction Severity Status sulfa drugs sweating arm was numg face swelling Active SMZ-TMP DS arms shakey weak Active Bactrim unknown Active doxycycline tongue itchy Active penicillin swell up mouth face Active Immunizations Given and Recorded Vaccine Date Status Refusal Reason influenza virus vaccine, inactivated1 12/31/17 Recorded 1Result Comment: [01/20/2018] Afluria Quad Done at [facility] Medications Abilify 5 mg oral tablet [...] 11/02/20 11:00:00 EDT, Route to Pharmacy Electronically, [facility] #[id number], Partial fill upon patient request if the [...] Mouth, Daily, # 30 tablet, 5 Refills, [facility] #[id number], 157.48, cm, 218:27:00 EDT, Height, 104, kg, [...] Refills, Maintenance, 12/13/20 16:41:00 EDT, ER Tablet, [facility] #[id number], Partial fill upon patient request if the [...] Replace Required Details, Route to Pharmacy Electronically, [facility] #[id number],... Start Date: 11/24/20 Status: OrderedVitamin B6 100 [...]
--- OUTSIDE RECORDS SUMMARY | 2022-03-07 09:00 | XMS_ITS | Continuity of Care Document ---
:1975 Author Organization [address], [address] [address]- Care Team Providers Name Role Phone Clover KLINE, Lydia Florentino Primary Care Physician En[place] [facility] [place] Date(s): 08/30/21 - 09/29/[address], [address] [id number] Attending Physician: Kentrell Shelby Admitting Physician: AdmKentrell miller Referring Physician: Admtr, Ar8 Allergies, Adverse Reactions, Alerts Substance Reaction Severity Status doxycycline tongue itchy Active penicillin swell up mouth face Active SMZ-TMP DS arms shakey weak Active sulfa drugs sweating arm was numg face swelling Active Bactrim unknown Active Immunizations Given and Recorded Vaccine Date Status Refusal Reason influenza virus vaccine, inactivated1 12/31/17 Recorded 1Result Comment: [01/20/2018] Afluria Quad Done at [facility] Medications Abilify 5 mg oral tablet 5 [...] 11/02/20 11:00:00 EDT, Route to Pharmacy Electronically, [facility] #[id number], Partial fill upon patient request if the [...] tablet, By Mouth, Daily, # 30 tablet, 3 Refills, 06/06/21 8:57:00 EST, [facility] #[id number], 157.48, cm, 11/24/20 8:27:00 EDT, Height, 104, kg, 11/24/20 8:27:00 EDT, Dry Weight Start Date: 06/06/21 Status: Orderednorethindrone 5 mg oral tablet 5 mg, 1, tablet, By Mouth, Daily, takes 2 weeks per month, # 30 tablet, Refills 0, Maintenance, 09/27/19 8:39:00 EDT Start Date: 09/27/19 Status: Orderedoxybutynin 10 mg/24 hr oral tablet, extended release 1 tablet = 10 mg, By Mouth, Daily, # 30 tablet, 5 Refills, Maintenance, 06/08/21 14:34:00 EST, ER Tablet, [facility] #[id number], Partial fill upon patient request if the prescription is for a schedule II opioid drug., 157.48, cm, 11/24/20 8:27:0... Start Date: 06/08/21 Status: Orderedprimidone 50 mg oral tablet 50 [...] Replace Required Details, Route to Pharmacy Electronically, [facility][id number],... Start Date: 11/24/20 Status: OrderedVitamin B6 100 [...] Knee meniscus pain(Confirmed) Active Common migraine(Confirmed) Active Severe obesity(Confirmed) Active TMJ syndrome(Confirmed) Active Social History Social History Type Response Tobacco Use: 4 or less cigarettes(le ss than 1/4 pack)/day in last 30 days. Sex
--- OUTSIDE RECORDS SUMMARY | 2022-03-07 09:00 | XMS_ITS | Continuity of Care Document ---
:1975 Author Organization [facility] Address [address] [place] [address]- Care Team Providers Name Role Phone Clover KLINE, Lydia Florentino Primary Care Physician En[place] [facility] [place] Date(s): 10/12/21 - 11/11/21 [facility] [address] [place], [place] [address] Attending Physician: Kentrell Shelby Admitting Physician: AdmKentrell [...] 1Result Comment: [01/20/2018] Afluria Quad Done at [facility] Medications Abilify 5 mg oral [...] 11/02/20 11:00:00 EDT, Route to Pharmacy Electronically, [facility] #[id number], Partial fill upon patient request if the [...] 30 tablet, 3 Refills, 06/06/21 8:57:00 EST, [facility] #[id number], 157.48, cm, 11/24/20 8:27:00 EDT, Height, 104, [...] Refills, Maintenance, 06/08/21 14:34:00 EST, ER Tablet, [facility] #[id number], Partial fill upon patient request if the [...] Replace Required Details, Route to Pharmacy Electronically, [facility] #[id number],... Start Date: 11/24/20 Status: OrderedVitamin B6 100 [...]
--- OUTSIDE RECORDS SUMMARY | 2022-03-07 09:00 | XMS_ITS | Continuity of Care Document ---
:1975 Author Organization [facility] Address [address] [place] [address], [address] [place] [id number]- Care Team Providers Name Role Phone Geovanni KLINE, Asma Primary Care Physician [facility]counter [facility] Date(s): 10/13/20 - 11/12/20 [facility] [address] [address]- Allergies, Adverse Reactions, Alerts Substance Reaction Severity Status doxycycline tongue itchy Active penicillin swell up mouth face Active sulfa drugs sweating arm was numg face swelling Active Bactrim unknown Active SMZ-TMP DS arms shakey weak Active Immunizations Given and Recorded Vaccine Date Status Refusal Reason influenza virus vaccine, inactivated1 12/31/17 Recorded 1Result Comment: [01/20/2018] Afluria Quad Done at [facility] Medications Abilify 5 mg oral [...] 11/02/20 11:00:00 EDT, Route to Pharmacy Electronically, [facility] #[id number], Partial fill upon patient request if the [...] tablet, 5 Refills, Maintenance, 10/24/20 11:24:00 EDT, [facility] #[id number], Partial fill upon patient request if the [...] 10/13/20 9:41:00 EDT, Route to Pharmacy Electronically, [facility] #[id number], Partialfill upon patient request if the prescription [...]
--- OUTSIDE RECORDS SUMMARY | 2022-03-07 09:01 | XMS_ITS | Continuity of Care Document ---
:1975 Author Organization [address], [address] [place] [address]- Care Team Providers Name Role Phone Clover KLINE, Lydia Florentino Primary Care Physician Encounter [facility] [place] Date(s): 08/30/21 - 09/06/[address], [address] [place], [place] [address] Attending Physician: Genaro Linares MD Referring Physician: Norma Arora MD Allergies, Adverse Reactions, Alerts Substance Reaction Severity Status doxycycline tongue itchy Active penicillin swell up mouth face Active sulfa drugs sweating arm was numg face swelling Active Bactrim unknown Active SMZ-TMP DS arms shakey weak Active Immunizations Given and Recorded Vaccine Date Status Refusal Reason influenza virus vaccine, inactivated1 12/31/17 Recorded 1Result Comment: [01/20/2018] Afluria Quad Done at [facility] Medications Abilify 5 mg oral tablet [...] 11/02/20 11:00:00 EDT, Route to Pharmacy Electronically, [facility] #[id number], Partial fill upon patient request if the [...] 30 tablet, 3 Refills, 06/06/21 8:57:00 EST, [facility] #[id number], 157.48, cm, 11/24/20 8:27:00 EDT, Height, 104, [...] Refills, Maintenance, 06/08/21 14:34:00 EST, ER Tablet, [facility] #[id number], Partial fill upon patient request if the [...] Replace Required Details, Route to Pharmacy Electronically, [facility] #[id number],... Start Date: 11/24/20 Status: OrderedVitamin B6 100 [...] Active Severe obesity(Confirmed) Active TMJ syndrome(Confirmed) Active Vital Signs Most recent to oldest [Reference Range]: 1 Height 157.48 cm (08/30/21 9:55 AM) Weight 104.0 kg (08/30/21 9:55 AM) Body Mass Index [18.5-24.99] 41.94 *>HHI* (08/30/21 9:55 AM) Social History Social History Type Response Tobacco Use: 4 or less cigarettes(le ss than 1/4 pack)/day in last 30 days. Sex
--- OUTSIDE RECORDS SUMMARY | 2022-03-07 09:01 | XMS_ITS | Continuity of Care Document ---
:1975 Author Organization [facility] Address [address] [place] [address]- Care Team Providers Name Role Phone Geovanni KLINE, Asma Primary Care Physician [place] [facility] [place] 03/07/[address] [address] Attending Physician: Kentrell Shelby Admitting Physician: AdmtrKentrell Referring Physician: Admtr, ArTen Allergies, Adverse Reactions, Alerts Substance Reaction Severity Status doxycycline tongue itchy Active penicillin swell up mouth face Active sulfa drugs sweating arm was numg face swelling Active SMZ-TMP DS arms shakey weak Active Bactrim unknown Active Immunizations Given and Recorded Vaccine Date Status Refusal Reason influenza virus vaccine, inactivated1 12/31/17 Recorded 1Result Comment: [01/20/2018] Afluria Quad Done at [facility] Medications Abilify 5 mg oral tablet [...] 11/02/20 11:00:00 EDT, Route to Pharmacy Electronically, [facility] #[id number], Partial fill upon patient request if the [...] tablet, 5 Refills, Maintenance, 10/24/20 11:24:00 EDT, [facility] #[id number], Partial fill upon patient request if the [...] Refills, Maintenance, 12/13/20 16:41:00 EDT, ER Tablet, [facility] #[id number], Partial fill upon patient request if the [...] Replace Required Details, Route to Pharmacy Electronically, [facility] #[id number],... Start Date: 11/24/20 Status: OrderedVitamin B6 100 [...]
--- OUTSIDE RECORDS SUMMARY | 2022-03-07 09:01 | XMS_ITS | Continuity of Care Document ---
:1975 Author Organization [facility] Address [address] [place] [address], [address] [place] [address]- Care Team Providers Name Role Phone Geovanni KLINE, Asma Primary Care Physician Encounter [facility] Date(s): 10/24/20 - 11/23/20 [facility] [address] [address]- Allergies, Adverse Reactions, Alerts Substance Reaction Severity Status doxycycline tongue itchy Active penicillin swell up mouth face Active sulfa drugs sweating arm was numg face swelling Active Bactrim unknown Active SMZ-TMP DS arms shakey weak Active Immunizations Given and Recorded Vaccine Date Status Refusal Reason influenza virus vaccine, inactivated1 12/31/17 Recorded 1Result Comment: [01/20/2018] Afluria Quad Done at [facility] Medications Abilify 5 mg oral tablet [...] 11/02/20 11:00:00 EDT, Route to Pharmacy Electronically, [facility] #[id number], Partial fill upon patient request if the [...] tablet, 5 Refills, Maintenance, 10/24/20 11:24:00 EDT, [facility] #[id number], Partial fill upon patient request if the [...] 10/13/20 9:41:00 EDT, Route to Pharmacy Electronically, [facility] #[id number], Partialfill upon patient request if the prescription [...]
--- OUTSIDE RECORDS SUMMARY | 2022-03-07 09:01 | XMS_ITS | Continuity of Care Document ---
:1975 Author Organization [facility] Address [address] [place] [address], [address] [place] [address]- Care Team Providers Name Role Phone Geovanni KLINE, Asma Primary Care Physician Encounter [facility] Date(s): 12/11/20 - 01/10/21 [facility] [address] [address]- Allergies, Adverse Reactions, Alerts Substance Reaction Severity Status doxycycline tongue itchy Active penicillin swell up mouth face Active sulfa drugs sweating arm was numg face swelling Active Bactrim unknown Active SMZ-TMP DS arms shakey weak Active Immunizations Given and Recorded Vaccine Date Status Refusal Reason influenza virus vaccine, inactivated1 12/31/17 Recorded 1Result Comment: [01/20/2018] Afluria Quad Done at [facility] Medications Abilify 5 mg oral tablet [...] Pharmacy Electronically, [facility] #[id number], Partial fill upon patient request if the [...] tablet, 5 Refills, Maintenance, 10/24/20 11:24:00 EDT, [facility] #[id number], Partial fill upon patient request if the [...] Refills, Maintenance, 12/13/20 16:41:00 EDT, ER Tablet, [facility] #[id number], Partial fill upon patient request if the [...] Replace Required Details, Route to Pharmacy Electronically, [facility] #[id number],... Start Date: 11/24/20 Status: OrderedVitamin B6 100 [...]
--- OUTSIDE RECORDS SUMMARY | 2022-03-07 09:01 | XMS_ITS | Continuity of Care Document ---
:1975 Author Organization [facility] Address [address] [place] [address]- Care Team Providers Name Role Phone Geovanni KLINE, Asma Primary Care Physician [place] [facility] [place] 10/09/20 - 10/09/[address] [address] Discharge Disposition: A-D/C Home Attending Physician: Hannah Eckert MD Admitting Physician: Hannah Eckert MD Referring Physician: Hannah Eckert MD Allergies, Adverse Reactions, Alerts Substance Reaction Severity Status doxycycline tongue itchy Active penicillin swell up mouth face Active sulfa drugs sweating arm was numg face swelling Active Bactrim unknown Active SMZ-TMP DS arms shakey weak Active Immunizations Given and Recorded Vaccine Date Status Refusal Reason influenza virus vaccine, inactivated1 12/31/17 Recorded 1Result Comment: [01/20/2018] Afluria Quad Done at [facility] Medications Abilify 5 mg oral tablet [...] 0, Tot. Refills 0, Maintenance, for pain, 10/09/20 14:13:00 EDT, Route to Pharmacy Electronically, [facility] #[id number], Partial fill upon patient request if the prescription... Start Date: 10/09/20 Status: Orderedketoconazole 1% topical shampoo Topically, 0 [...] II opioid drug. Start Date: 09/27/20 Status: Orderedmirabegron 25 mg oral tablet, extended release 1 tablet = 25 mg, By Mouth, Daily, do not crush or chew, # 30 tablet, 5 Refills, Maintenance, 10/02/20 12:24:00 EDT, ER Tablet, [facility] #[id number], Partial fill upon patient request if the prescription is for a schedule II opioid drug., 157.4... Start Date: 10/02/20 Status: OrderedMiscellaneous Rx 0 Refills, Maintenance, clindamycin [...] II opioid drug. Start Date: 09/27/20 Status: Orderednorethindrone 5 mg oral tablet 5 mg, 1, tablet, By Mouth, Daily, takes 2 weeks per month, # 30 tablet, Refills 0, Maintenance, 09/27/19 8:39:00 EDT Start Date: 09/27/19 Status: OrderedoxyCODONE 5 mg oral tablet 5 mg, 1, tablet, By Mouth, Every 6 hours, PRN, # 12 tablet, Refills 0, Tot. Refills 0, Maintenance, for pain, 10/09/20 14:13:00 EDT, Route to Pharmacy Electronically, [facility] #[id number], Partial fill upon patient request if the prescription i... Start Date: 10/09/20 Status: OrderedOxyCODONE IR Tablet 5 mg, Tablet, By Mouth, Every 4 hours, in PACU ONLY, if patient can tolerate PO, PRN for Pain , Mild, Routine, 10/09/20 13:17:00 EDT Start Date: 10/09/20 Stop Date: 10/16/20 Status: Orderedprimidone 50 mg oral tablet 50 [...] Active Common migraine(Confirmed) Active TMJ syndrome(Confirmed) Active Vital Signs Most recent to oldest 1 2 3 [Reference Range]: Height 157.48 cm 157.48 cm (10/09/20 12:38 PM) (09/27/20 7:03 PM) Weight 106.82 kg 106.82 kg (10/09/20 12:38 PM) (09/27/20 7:03 PM) Oxygen Saturation [94-100 96 % 97 % 95 % %] (10/09/20 3:45 PM) (10/09/20 3:30 PM) (10/09/20 3:1 5 PM) Pulse Rate [55-90 bpm] 72 bpm (10/09/20 12:38 PM) Body Mass Index 43.07 43.07 [18.5-24.99] *>HHI* *>HHI* (10/09/20 12:38 PM) (09/27/20 7:03 PM) Blood Pressure 124/82 mm Hg 132/91 mm Hg 117/73 mm Hg [90-138/55-84 mm Hg] (10/09/20 3:45 PM) (10/09/20 3:30 PM) ( 3:15 PM) Respiratory Rate [16-30 16 br/min 11 br/min 13 br/mi n br/min] (10/09/20 6:02 PM) *L* *L* (10/09/20 3:45 PM) (10/09/20 3:30 PM) Temperature [96.8-100.4 97.4 DegF 97.9 DegF 98.6 Deg F DegF] (10/09/20 4:00 PM) (10/09/20 2:15 PM) (10/09/20 12: 38 PM) Liters per Minute 3 L/min 3 L/min 3 L/min (10/09/20 3:30 PM) (10/09/20 3:15 PM) (10/09/20 3:0 0 PM) Mode of Delivery (Oxygen) Room air Room air Nasal cannula (10/09/20 5:45 PM) (10/09/20 3:45 PM) (10/09/20 3:3 0 PM) Blood pressure sites Arm, left (10/09/20 12:38 PM) Temperature Route Temporal Temporal Temporal (10/09/20 4:00 PM) (10/09/20 2:15 PM) (10/09/20 12: 38 PM) Dry Weight 106.82 kg (09/27/20 7:03 PM) Weight Obtained Via Patient/family stated (09/27/20 7:03 PM) Dry Weight Obtained Via Patient/family stated (09/27/20 7:03 PM) Social History Social History Type Response Tobacco Use: 4 or less cigarettes(le ss than 1/4 pack)/day in last 30 days. Sex
--- OUTSIDE RECORDS SUMMARY | 2022-03-07 09:01 | XMS_ITS | Continuity of Care Document ---
:1975 Author [facility] Address [address] [place] [address], [address] [place] [address]- Care Team Providers Name Role Phone Geovanni KLNIE, Hector Primary Care Physician [facility] [facility] [place] Date(s): 08/02/20 - 11/30/20 [facility] [address] [address] Attending Physician: Hannah Eckert MD Admitting Physician: Hannah Eckert MD Referring Physician: Hector Galarza MD Allergies, Adverse Reactions, Alerts Substance Reaction Severity Status Bactrim unknown Active SMZ-TMP DS arms shakey weak Active doxycycline tongue itchy Active penicillin swell up mouth face Active sulfa drugs sweating arm was numg face swelling Active Immunizations Given and Recorded Vaccine Date Status Refusal Reason influenza virus vaccine, inactivated1 12/31/17 Recorded 1Result Comment: [01/20/2018] Afluria Quad Done at [facility] Medications Abilify 5 mg oral [...] Pharmacy Electronically, [facility] #[id number], Partial fill upon patient request if the [...] tablet, 5 Refills, Maintenance, 10/24/20 11:24:00 EDT, [facility] #[id number], Partial fill upon patient request if the prescription is for a schedule II opioid drug., 157.48, cm, 10/20/20 11:27:00 EDT, Sheila... Start Date: 10/24/20 Status: Orderednorethindrone 5 mg [...] Replace Required Details, Route to Pharmacy Electronically, [facility] #[id number],... Start Date: 11/24/20 Status: OrderedVitamin B6 100 mg oral tablet 1 tablet = 100 mg, By Mouth, Daily in AM, 0 Refills, Maintenance, 07/12/20 10:17:00 EDT, Partial fill upon patient request if the prescription is for a schedule II opioid drug. Start Date: 3/17/21 Status: Ordered Problem List Condition Effective Dates Status Health Status Informant Acne(Confirmed) Active Allergic rhinitis(Confirmed) Active Anxiety(Confirmed) Active Rectocele(Confirmed) Active Mixed incontinence(Confirmed) Active Knee meniscus pain(Confirmed) Active Common migraine(Confirmed) Active TMJ syndrome(Confirmed) Active Social History Social History Type Response Tobacco Use: 4 or less cigarettes(le ss than 1/4 pack)/day in last 30 days. Sex
--- OUTSIDE RECORDS SUMMARY | 2022-03-07 09:01 | XMS_ITS | Continuity of Care Document ---
:1975 Author Organization [address], [address] [place] [address]- Care Team Providers Name Role Phone Tati Walker MD Primary Care Physician Encounter [facility] [place] Date(s): 10/05/19 - 11/04/[address], [address] [place] [address]- [facility] Attending Physician: Kentrell Shelby Admitting Physician: AdmtrKentrell Referring Physician: Admtr, ArTen Allergies, Adverse Reactions, Alerts Substance Reaction Severity Status doxycycline Active penicillin Active SMZ-TMP DS Active Immunizations Given and Recorded Vaccine Date Status Refusal Reason influenza virus vaccine, inactivated1 12/31/17 Recorded 1Result Comment: [01/20/2018] Afluria Quad Done at [facility] Medications Abilify 5 mg oral [...]
--- OUTSIDE RECORDS SUMMARY | 2022-03-07 09:01 | XMS_ITS | Continuity of Care Document ---
:1975 Author Organization [address], [address] [place] [address]- Care Team Providers Name Role Phone Clover KLINE, Lydia Florentino Primary Care Physician [place] [facility] [place] - 09/06/[address], [address] [place], [place] [address] Allergies, Adverse Reactions, Alerts Substance Reaction Severity Status doxycycline tongue itchy Active penicillin swell up mouth face Active sulfa drugs sweating arm was numg face swelling Active Bactrim unknown Active SMZ-TMP DS arms shakey weak Active Immunizations Given and Recorded Vaccine Date Status Refusal Reason influenza virus vaccine, inactivated1 12/31/17 Recorded 1Result Comment: [01/20/2018] Afluria Quad Done at [facility] Abilify 5 mg oral tablet 5 mg, [...] 11/02/20 11:00:00 EDT, [facility] Electronically, [id number], Partial fill upon patient request if the [...] 30 tablet, 3 Refills, 06/06/21 8:57:00 EST, [facility] #[id number], 157.48, cm, 11/24/20 8:27:00 EDT, Height, 104, [...] Refills, Maintenance, 06/08/21 14:34:00 EST, ER Tablet, [facility] #[id number], Partial fill upon patient request if the [...] Replace Required Details, Route to Pharmacy Electronically, [facility] #[id number],... Start Date: 11/24/20 Status: OrderedVitamin B6 100 [...]
--- OUTSIDE RECORDS SUMMARY | 2022-03-07 09:01 | XMS_ITS | Continuity of Care Document ---
:1975 Author Organization [address], [address] [place] [address]- Care Team Providers Name Role Phone Tati Walker MD Primary Care Physician [place] [facility] [place] Date(s): 07/05/19 - 10/02/[address], [address] [place] [address]- [facility] Attending Physician: Genaro Linares MD Referring Physician: Ulysses KLINE, Norma Zelaya Allergies, Adverse Reactions, Alerts Substance Reaction Severity Status doxycycline Active penicillin Active SMZ-TMP DS Active Immunizations Given and Recorded Vaccine Date Status Refusal Reason influenza virus vaccine, inactivated1 12/31/17 Recorded 1Result Comment: [01/20/2018] Afluria Quad Done at [facility] Abilify 5 mg oral tablet 5 mg, [...]
--- OUTSIDE RECORDS SUMMARY | 2022-03-07 09:01 | XMS_ITS | Continuity of Care Document ---
:1975 Author Organization [facility] Address [address] [place] [address], [address] [place] [address]- Care Team Providers Name Role Phone Geovanni KLINE, Hector Primary Care Physician Encounter [facility] Date(s): 09/02/19 - 09/09/[address], [address] [place] [address]- [facility] Attending Physician: Genaro Linares MD Referring Physician: Hector Galarza MD Social History Social History Type Response Smoking Status Never (less than 100 in life time) entered on: 09/02/19 Sex
--- OUTSIDE RECORDS SUMMARY | 2022-03-07 09:01 | XMS_ITS | Continuity of Care Document ---
:1975 Author Organization [facility] Address [address] [place] [address], [address] [place] [address]- Care Team Providers Name Role Phone Geovanni KLINE, Asma Primary Care Physician Encounter [facility] Date(s): 10/11/20 - 11/10/20 [facility] [address] [address]- Allergies, Adverse Reactions, Alerts Substance Reaction Severity Status doxycycline tongue itchy Active penicillin swell up mouth face Active sulfa drugs sweating arm was numg face swelling Active Bactrim unknown Active SMZ-TMP DS arms shakey weak Active Immunizations Given and Recorded Vaccine Date Status Refusal Reason influenza virus vaccine, inactivated1 12/31/17 Recorded 1Result Comment: [01/20/2018] Afluria Quad Done at [facility] Medications Abilify 5 mg oral tablet [...] 11/02/20 11:00:00 EDT, Route to Pharmacy Electronically, [facility] #[id number], Partial fill upon patient request if the [...] tablet, 5 Refills, Maintenance, 10/24/20 11:24:00 EDT, [facility] #[id number], Partial fill upon patient request if the [...] 10/13/20 9:41:00 EDT, Route to Pharmacy Electronically, [facility] #[id number], Partialfill upon patient request if the prescription [...]
[2022-03-07 09:20] VITALS: O2SAT 97
[2022-03-07] MEDS: Ketorolac Tromethamine 15 MG/ML VIAL IM (09:31)
== END 2022-03-07 10:02 | disposition home or self-care (01) ==
PROVIDERS: Emergency Provider Emergency Medicine Emergency Medical Services; PCP Student in an Organized Health Care Education/Training Program
DX: M94.0 Chondrocostal junction syndrome [Tietze] (principal); R05.9 Cough, unspecified
CPT/HCPCS: 71046; 96372; 99284; J1885

== ENCOUNTER 2022-03-08 06:09 | Emergency (ER) | payer OTHER, SELFPAY ==
--- NOTE | ~2022-03-08 | US_ITS ---
EXAMINATION: US ABDOMEN LIMITED CLINICAL INFORMATION: Right upper quadrant pain. COMPARISON: Abdomen CT from 06/17/2020 TECHNIQUE: Real-time imaging of the right upper quadrant abdominal viscera. FINDINGS: PANCREAS: The pancreas is obscured by bowel gas. LIVER: Liver parenchyma is diffusely hyperechoic. There is suboptimal acoustic penetration through the steatotic-appearing liver. No focal lesions are seen. No dilated bile ducts GALLBLADDER: Normal. The gallbladder is physiologically distended without evidence of stones, sludge, polyps, wall thickening or pericholecystic fluid. COMMON BILE DUCT: Normal in caliber measuring 0.3 cm in diameter. RIGHT KIDNEY: Normal. No hydronephrosis. No renal calculi or focal parenchymal lesions. The kidney measures 12.3 cm in maximum dimension. FREE FLUID: None. US/US abdomen limited IMPRESSION: * Diffuse hepatic steatosis. * Gallbladder is normal. No evidence of cholelithiasis, cholecystitis or biliary tract obstruction.
[2022-03-08 07:17] VITALS: BP 155/99; PULSE 94; RESP 34; TEMP 37.1; O2SAT 94; BMI 46.0
--- OUTSIDE RECORDS SUMMARY | 2022-03-08 08:10 | XMS_ITS | Continuity of Care Document ---
:1975 Author Organization [facility] Address [address] [place] [address]- Care Team Providers Name Role Phone Clover KLINE, Lydia Florentino Primary Care Physician Encounter [facility] [place] Date(s): 10/12/21 - 10/19/21 [facility] [address] [place] [address] Attending Physician: Ranjit Bautista DO Allergies, Adverse Reactions, Alerts Substance Reaction Severity Status doxycycline tongue itchy Active penicillin swell up mouth face Active SMZ-TMP DS arms shakey weak Active sulfa drugs sweating arm was numg face swelling Active Bactrim unknown Active Immunizations Given and Recorded Vaccine Date Status Refusal Reason influenza virus vaccine, inactivated1 12/31/17 Recorded 1Result Comment: [01/20/2018] Afluria Quad Done at [facility] Medications Abilify 5 mg oral tablet [...] Pharmacy Electronically, [facility] #[id number], Partial fill upon patient request if the [...] 30 tablet, 3 Refills, 06/06/21 8:57:00 EST, [facility] #[id number], 157.48, cm, 11/24/20 8:27:00 EDT, Height, 104, kg, 11/24/20 8:27:00 EDT, Dry Weight Start Date: 06/06/21 Status: Orderednaproxen 500 mg oral tablet 1 tablet = 500 mg, By Mouth, 2 times a day, for 10 days, # 20 tablet, 0 Refills, Acute 10/22/21 10:51:00 EDT, 10/12/21 10:51:00 EDT, Tablet, [facility] #[id number], Partial fill upon patient request if the prescription is for a schedule II opioid... Start Date: 10/12/21 Stop Date: 10/22/21 Status: Orderednorethindrone 5 mg oral tablet 5 mg, 1, tablet, By Mouth, Daily, takes 2 weeks per month, # 30 tablet, Refills 0, Maintenance, 09/27/19 8:39:00 EDT Start Date: 09/27/19 Status: Orderedoxybutynin 10 mg/24 hr oral tablet, extended release 1 tablet = 10 mg, By Mouth, Daily, # 30 tablet, 5 Refills, Maintenance, 06/08/21 14:34:00 EST, ER Tablet, [facility] #[id number], Partial fill upon patient request if the [...] Replace Required Details, Route to Pharmacy Electronically, [facility] #[id number],... Start Date: 11/24/20 Status: OrderedVitamin B6 100 [...] oldest [Reference Range]: 1 Height 157.48 cm (10/12/21 9:20 AM) Oxygen Saturation [94-100 %] 97 % (10/12/21 9:20 AM) Pulse Rate [55-90 bpm] 102 bpm *H* (10/12/21 9:20 AM) Blood Pressure [90-138/55-84 mm Hg] 147/95 mm Hg *H* (10/12/21 9:20 AM) Respiratory Rate [16-30 br/min] 18 br/min (10/12/21 9:20 AM) Temperature [96.8-100.4 DegF] 98.7 DegF (10/12/21 9:20 AM) Mode of Delivery (Oxygen) Room air (10/12/21 9:20 AM) Blood pressure sites Arm, right (10/12/21 9:20 AM) Temperature Route Temporal (10/12/21 9:20 AM) Social History Social History Type Response Tobacco Use: 4 or less cigarettes(le ss than 1/4 pack)/day in last 30 days. Sex
--- NOTE | 2022-03-08 08:24 | ED.GENADULT ---
HPI - General Adult General Chief complaint: General Medical Stated complaint: Pain in right side Time Seen by Provider: 03/08/22 09:06 Source: patient Mode of arrival: ambulatory History of Present Illness HPI narrative: 46-year-old female with a past medical history of arthritis, bipolar, fibromyalgia, mi, hyperkalemia, obesity, overactive bladder, presenting to the ED complaining of cough and right-sided chest wall pain worse with deep breathing and movement. Reports mild associated SOB. Was seen in the ED yesterday had CXR that was unremarkable diagnosed with costochondritis. Denies any direct trauma, fall. Denies fever, chills, abdominal pain, nausea, vomiting, pedal edema, recent travel, history of clots. Denies seeking AC Onset (ago): day(s) Related Data Home Medications Medication Instructions Recorded Confirmed aripiprazole 5 mg tablet 5 mg PO DAILY 01/26/20 10/27/20 bupropion HCl 300 mg 24 hr tablet, 300 mg PO DAILY 01/26/20 10/27/20 extended release carbamazepine 200 mg tablet 200 mg PO QID 01/26/20 10/27/20 cholecalciferol (vitamin D3) 50 50 mcg PO BEDTIME 01/26/20 10/27/20 mcg (2,000 unit) capsule clonazepam 1 mg tablet 1 mg PO TID PRN Skin Cleansing 01/26/20 10/27/20 fluoxetine 20 mg capsule 40 mg PO DAILY 01/26/20 10/27/20 glycopyrrolate 1 mg tablet 1 mg PO TID 01/26/20 10/27/20 melatonin 10 mg capsule 10 mg BEDTIME 01/26/20 10/27/20 primidone 50 mg tablet 100 mg PO TID 02/16/20 10/27/20 sertraline [Zoloft] PO DAILY 06/14/20 10/27/20 dicyclomine 10 mg capsule 10 mg PO Q6H PRN 08/25/20 10/27/20 cholestyramine (with sugar) 4 gram 1 ea PO BID 09/15/20 10/27/20 powder for susp in a packet ammonium lactate 12 % topical cream 1 appl topical BID 10/27/20 10/27/20 betamethasone dipropionate 0.05 % topical itch 10/27/20 10/27/20 lotion clindamycin phosphate 1 % lotion topical 10/27/20 10/27/20 famotidine 40 mg tablet 40 mg PO BID 10/27/20 10/27/20 tretinoin 0.1 % topical cream appl topical BEDTIME PRN 10/27/20 10/27/20 gabapentin 300 mg capsule 300 mg PO TID 06/04/21 ibuprofen 800 mg tablet 800 mg PO BID PRN 06/04/21 pantoprazole 40 mg tablet,delayed 40 mg PO BID 06/04/21 release aripiprazole 15 mg tablet 0 mg PO 08/31/21 baclofen 10 mg tablet 10 mg PO BID PRN 08/31/21 calcium carbonate 600 mg calcium 600 mg PO BID 08/31/21 (1,500 mg) tablet dicyclomine 20 mg tablet 20 mg PO QID PRN diarrhea 08/31/21 melatonin 5 mg capsule 5 mg PO BEDTIME PRN 08/31/21 solifenacin 5 mg tablet 5 mg PO DAILY 08/31/21 Previous Rx's Medication Instructions Recorded pyridoxine (vitamin B6) 100 mg 100 mg PO DAILY 90 days #90 tabs 06/23/20 tablet aspirin 81 mg tablet,delayed 81 mg PO DAILY #90 tabs 06/26/20 release acetaminophen 500 mg tablet 500 mg PO Q6H PRN pain or fever 08/19/20 (Tylenol Extra Strength) #20 tabs diclofenac sodium 75 mg 75 mg PO BID 7 days #14 tabs 08/25/20 tablet,delayed release imipramine HCl 10 mg tablet 10 mg PO BID #60 tabs 09/14/20 cholecalciferol (vitamin D3) 25 25 mcg PO DAILY 90 days #90 caps 09/15/20 mcg (1,000 unit) capsule atenolol 25 mg tablet 25 mg PO DAILY 90 days #90 tabs 11/03/20 azithromycin 250 mg tablet See Rx Instructions PO .COMPLEX #6 11/22/20 tabs cefuroxime axetil 500 mg tablet 500 mg PO BID 10 days #20 tabs 12/01/20 prednisone 20 mg tablet 20 mg PO .COMPLEX #18 tabs 12/01/20 ketoconazole 2 % topical cream 1 appl topical DAILY 3 days #60 12/07/20 grams norethindrone acetate 5 mg tablet 5 mg PO DAILY #90 tabs 02/10/21 tolterodine 2 mg capsule,extended 2 mg PO DAILY 30 days #30 caps 06/29/21 release 24 hr cyclobenzaprine 10 mg tablet 10 mg PO TID PRN thoracic pain 7 07/15/21 days #21 tabs mirabegron 50 mg tablet,extended 50 mg PO DAILY 90 days #90 tabs 10/19/21 release 24 hr (Myrbetriq) oxybutynin chloride 10 mg 10 mg PO DAILY 90 days #90 tabs 10/19/21 tablet,extended release 24 hr naproxen 500 mg tablet (Naprosyn) 500 mg PO BID #20 tabs 12/31/21 oxycodone-acetaminophen 5 mg-325 1 tab PO Q8H PRN pain #14 tabs 12/31/21 mg tablet (Percocet) acetaminophen 500 mg tablet 500 mg PO Q6H PRN fever or pain 03/08/22 (Tylenol Extra Strength) #14 tabs cyclobenzaprine 5 mg tablet 5 mg PO Q8H PRN pain (scale score 03/08/22 7-10) 5 days #14 tabs lidocaine 5 % topical patch 1 patch topical DAILY PRN pain #30 03/08/22 (Lidoderm) ea tramadol 50 mg tablet 50 mg PO Q8H PRN pain, severe 3 03/08/22 days #5 tabs Allergies Allergy/AdvReac Type Severity Reaction Status Date / Time Penicillins Allergy Severe ITCHING/SWE Verified 08/31/21 08:31 LLING doxycycline [DOXYCYCLINE] Allergy Intermediate SEVERE Verified 08/31/21 08:31 ITCHING, pruritis sulfamethoxazole [Bactrim] Allergy Unknown Unknown Verified 08/31/21 08:31 Sulfa (Sulfonamide Allergy Chest Pain Verified 08/31/21 08:31 Antibiotics) Review of Systems Review of Systems: Constitutional: No Fever, No Chills, No Fatigue, No Malaise ENT/Mouth: No Ear Pain, No Nasal Congestion, No Sinus Pain, No Hoarseness, No sore throat, No Rhinorrhea, No Swallowing Difficulty Eyes: No Eye Pain, No Swelling, No Redness, No Vision Changes Cardiovascular: + Chest Pain, + SOB, No Dyspnea on Exertion, No Orthopnea, No Edema, No Palpitations Respiratory: + Cough, No Sputum, No Wheezing, No Smoke Exposure, No Dyspnea Gastrointestinal: No Nausea, No Vomiting, No Diarrhea, No Constipation, No Abdominal pain Genitourinary: No Dysuria, No Urinary Frequency, No Hematuria, No Urinary Incontinence/retention, No Flank Pain Musculoskeletal: No joint pain, No Myalgias, No Joint Swelling Skin: No Skin Lesions, No rash Neuro: No Weakness, No Loss of Consciousness, No Dizziness, No Headache Yes all other systems are reviewed and are negative Constitutional: Constitutional: Reports as per [facility] Past Medical History Attestation statement: The following information was validated with the patient. Medical History Abnormal CT of the abdomen Arthritis Back pain Bipolar II disorder Dyspnea Fibromyalgia History of CA (myocardial infarction) History of urinary incontinence Hospital discharge follow-up Hyperkalemia Lab test negative for COVID-19 virus Obesity Optic neuritis Overactive bladder Partial bowel obstruction Rectal prolapse Small bowel obstruction Surgical History H/O cystoscopy (06/08/19) History of pubovaginal sling (10/19/19) History of total left knee replacement (TKR) (11/2016) History of total right knee replacement (06/2016) Social History Social History Household Members: Family Housing: House Alcohol intake: never Patient Tobacco Use Status: Never used Tobacco Tobacco use type: Cigarette Cigarette Packs Per Day: 1 Cigarettes Per Day: 20 Years Smoked: 20 Second Hand Smoke Exposure: No Substance Use Type: Marijuana Advance Directives: No Advance Directives Information Provided: Yes service: No Current occupational status: unemployed Physical Exam ED Vital Signs: Vital Signs - 24 hr 03/08/22 07:17 03/08/22 11:03 Temperature 98.7 F Pulse Rate 94 88 Respiratory Rate 34 H 18 Blood Pressure 155/99 H 114/82 Pulse Oximetry 94 95 Oxygen Delivery Method Room Air Room Air BMI result Body Mass Index 46.0 Const General: cooperative, healthy appearing and no acute distress Orientation/consciousness: patient oriented x3 Limitations: no limitations HENMT Head: Yes normal to inspection and Yes atraumatic Ears: hearing grossly normal bilaterally General nose exam: Normal external nose present Face and sinus: Yes normal facial exam Eyes General: appearance normal, both eyes and all related structures EOM: EOMs intact bilaterally Neck Neck: Yes normal visual inspection and Yes no meningeal signs Chest Other: + right-sided lower posterior lateral chest wall tenderness to palpation. No crepitus. No flail chest/erythema/ecchymosis Chest palpation & inspection: normal inspection of the chest, no crepitus and tenderness Resp Effort & Inspection: normal respiratory effort and no respiratory distress Auscultation: clear to auscultation bilaterally, no crackles, no rales, no rhonchi and no wheezes Cardio Rate: regular rate Heart sounds: S1 normal heart sound present and S2 normal heart sound present GI Inspection: Yes normal to inspection Palpation (GI): Soft to palpation, Tenderness to palpation present (GI) in the RUQ; with no rebound tenderness, no guarding and not rigid General: Yes no CVA tenderness Back/Spine/Pelvis Back: no CVA tenderness Skin Rashes: no rashes Wounds: no wounds Neuro General: patient oriented x3, tone normal and no meningeal signs Gait exam (Neuro): Normal gait present Extrem General: Yes normal to inspection and Yes no pedal edema Course Course Course Narrative: -1119--no leukocytosis. H&H stable. D-dimer WNL. Troponin negative. Labs otherwise reassuring -UA with blood, not infected 1139--US abdomen limited IMPRESSION: *? Diffuse hepatic steatosis. *? Gallbladder is normal. No evidence of cholelithiasis, cholecystitis or biliary tract obstruction. Results discussed with patient including worrisome signs and symptoms and strict return precautions, and when to return to the emergency department. They verbalized understanding and feel safe for discharge at this time. Medications Administered Discontinued Medications Generic Name Dose Route Start Last Admin Trade Name Milind PRN Reason Stop Dose Admin Cyclobenzaprine HCl 5 mg 03/08/22 09:31 03/08/22 09:55 Cyclobenzaprine Hcl 5 Mg Tablet PO 03/08/22 09:32 5 mg ONCE ONE Administration Ketorolac Tromethamine 15 mg 03/08/22 09:31 03/08/22 09:55 Ketorolac Tromethamine 15 Mg/Ml Vial IVPUSH 03/08/22 09:32 15 mg ONCE ONE Administration Medical Decision Making [facility] Narrative Medical decision making narrative: 46-year-old female with a past medical history of arthritis, bipolar, fibromyalgia, mi, hyperkalemia, obesity, overactive bladder, presenting to the ED complaining of cough and right-sided chest wall pain worse with deep breathing and movement. On exam tachypneic, satting 94% on RA, in pain, tearful, anxious, physical exam as above with right-sided reproducible chest wall pain and RUQ abdominal tenderness. Concern for PE vs cholecystitis/cholelithiasis or pancreatitis vs MSK pain. ?renal stone although of lower supicion. Lower concern for pneumonia, viral illness, DVT, ACS. Low suspicion for dissection Plan: EKG, labs, abdomen ultrasound, IM Toradol and p.o. Flexeril, re-evaluate Medical Records Medical records reviewed: Yes I reviewed the patient's medical records. Lab Data Lab results reviewed: Yes I reviewed the patient's lab results. Result diagrams: 03/08/22 09:51 03/08/22 09:50 Labs: Lab Results 03/08/22 03/08/22 03/08/22 Range/Units 09:38 09:50 09:50 WBC (4.8-10.8) X10*3/uL RBC (4.20-5.50) X10*6/uL Hgb (12.0-16.0) g/dl Hct (37.0-47.0) % MCV (80.0-98.0) fL MCH (27.0-33.0) pg MCHC (31.0-35.0) g/dl RDW (11.0-16.0) % Plt Count (160-400) X10*3/uL MPV (9.4-12.3) fL Immature Gran % (Auto) (0.0-0.4) % Neut % (Auto) (45-73) % Lymph % (Auto) (20-40) % Catron % (Auto) (2-11) % Eos % (Auto) (0-4) % Baso % (Auto) (0-2) % Lymph # (Auto) (1.2-4.9) X10*3/uL Catron # (Auto) (0.1-1.2) X10*3/uL Eos # (Auto) (0.0-0.4) X10*3/uL Baso # (Auto) (0.0-0.2) X10*3/uL Abs Immat Gran (auto) (0.00-0.03) X10*3/uL Absolute Neuts (auto) (2.0-8.3) x10*3/uL Absolute Nucleated RBC (0.0-0.012) X10*3/uL Nucleated RBC % (auto) (0.0-0.2) /100WBC D-Dimer High Sensitivty 159 NG/ML Sodium 138 (135-145) mmol/L Potassium 4.9 (3.3-5.1) mmol/L Chloride 105 (96-108) mmol/L Carbon Dioxide 18 L (22-29) mmol/L Anion Gap 20 (12-20) BUN 11 (9-16) mg/dL Creatinine 0.68 (0.5-1.4) mg/dL Estim Creat Clear Calc 131.0 Estimated GFR > 60 Random Glucose 111 (60-115) mg/dL Calcium 9.4 D (8.4-10.2) mg/dL Total Bilirubin 0.3 (0.0-1.0) mg/dL Direct Bilirubin < 0.2 (0.0-0.5) mg/dL AST 20 D (5-31) U/L ALT 13 (0-31) U/L Alkaline Phosphatase 165 H D (39-117) U/L Troponin I High Sens (<3.5-17.0) ng/L Total Protein 7.5 (6.5-8.0) g/dL Albumin 4.2 (3.5-5.0) g/dL Lipase 8 (8-78) U/L Urine Color Straw Urine Appearance Clear Urine pH 5.5 (5.0-9.0) Ur Specific [place] 1.020 (1.005-1.025) Urine Protein Negative (Neg-Trace) mg/dL Urine Glucose (UA) Negative (Negative) mg/dL Urine Ketones Negative (Negative) mg/dL Urine Blood Large (3+) H (Negative) Urine Nitrite Negative (Negative) Ur Leukocyte Esterase Negative (Negative) Urine RBC 0-2 (0-2) /HPF Urine WBC 0-5 (0-5) /HPF Ur Squamous Epith Cells 0-2 (0-2) /HPF Urine Bacteria Trace (None Seen) Hyaline Casts 0-2 (0-2) /LPF 03/08/22 03/08/22 Range/Units 09:50 09:51 WBC 9.8 (4.8-10.8) X10*3/uL RBC 5.16 (4.20-5.50) X10*6/uL Hgb 13.5 (12.0-16.0) g/dl Hct 42.1 (37.0-47.0) % MCV 81.6 (80.0-98.0) fL MCH 26.2 L (27.0-33.0) pg MCHC 32.1 (31.0-35.0) g/dl RDW 13.8 (11.0-16.0) % Plt Count 351 (160-400) X10*3/uL MPV 9.9 (9.4-12.3) fL Immature Gran % (Auto) 0.3 (0.0-0.4) % Neut % (Auto) 72.5 (45-73) % Lymph % (Auto) 20.7 (20-40) % Catron % (Auto) 5.1 (2-11) % Eos % (Auto) 0.8 (0-4) % Baso % (Auto) 0.6 (0-2) % Lymph # (Auto) 2.0 (1.2-4.9) X10*3/uL Catron # (Auto) 0.5 (0.1-1.2) X10*3/uL Eos # (Auto) 0.1 (0.0-0.4) X10*3/uL Baso # (Auto) 0.1 (0.0-0.2) X10*3/uL Abs Immat Gran (auto) 0.03 (0.00-0.03) X10*3/uL Absolute Neuts (auto) 7.1 (2.0-8.3) x10*3/uL Absolute Nucleated RBC 0.000 (0.0-0.012) X10*3/uL Nucleated RBC % (auto) 0.0 (0.0-0.2) /100WBC D-Dimer High Sensitivty NG/ML Sodium (135-145) mmol/L Potassium (3.3-5.1) mmol/L Chloride (96-108) mmol/L Carbon Dioxide (22-29) mmol/L Anion Gap (12-20) BUN (9-16) mg/dL Creatinine (0.5-1.4) mg/dL Estim Creat Clear Calc Estimated GFR Random Glucose (60-115) mg/dL Calcium (8.4-10.2) mg/dL Total Bilirubin (0.0-1.0) mg/dL Direct Bilirubin (0.0-0.5) mg/dL AST (5-31) U/L ALT (0-31) U/L Alkaline Phosphatase (39-117) U/L Troponin I High Sens < 3.5 (<3.5-17.0) ng/L Total Protein (6.5-8.0) g/dL Albumin (3.5-5.0) g/dL Lipase (8-78) U/L Urine Color Urine Appearance Urine pH (5.0-9.0) Ur Specific [place] (1.005-1.025) Urine Protein (Neg-Trace) mg/dL Urine Glucose (UA) (Negative) mg/dL Urine Ketones (Negative) mg/dL Urine Blood (Negative) Urine Nitrite (Negative) Ur Leukocyte Esterase (Negative) Urine RBC (0-2) /HPF Urine WBC (0-5) /HPF Ur Squamous Epith Cells (0-2) /HPF Urine Bacteria (None Seen) Hyaline Casts (0-2) /LPF ECG Data Attestation: I personally reviewed and interpreted this ECG as follows: Interpretation: EKG normal sinus rhythm at a rate of 93 nonspecific T-wave abnormalities in inferior leads. No STEMI Discharge Plan Discharge Clinical Impression: Rib pain on right side, Abdominal pain, RUQ Patient Disposition: Home, Self-Care Instructions: Chest Pain (DC), Abdominal Pain (ED) Additional Instructions: Your blood work and imaging studies were reassuring. You do have fatty liver, avoid fatty/greasy foods and alcohol You need to have close follow-up with her doctor Your pain is likely musculoskeletal Flexeril is a muscle relaxer, take at night as it makes you drowsy, do not drive, drink alcohol, or operate machinery while taking it You need to take ibuprofen, take with food Lidoderm patches are numbing patches, apply to painful area In addition take Tylenol at home Tramadol as an opiate pain medication, take only when pain is severe for the next 3 days If symptoms persist or worsen, pain becomes unbearable, you developed urinary retention or incontinence, or weakness return to the ED Prescriptions: New tramadol 50 mg tablet 50 mg PO Q8H PRN (Reason: pain, severe) 3 Days Qty: 5 0RF acetaminophen [Tylenol Extra Strength] 500 mg tablet 500 mg PO Q6H PRN (Reason: fever or pain) Qty: 14 0RF lidocaine [Lidoderm] 5 % adhesive patch,medicated 1 patch topical DAILY MDD remove after 12 hours PRN (Reason: pain) Qty: 30 0RF Rx Instructions: leave on most painful area for up to 12 hrs cyclobenzaprine 5 mg tablet 5 mg PO Q8H PRN (Reason: pain (scale score 7-10)) 5 Days Qty: 14 0RF No Action aspirin 81 mg tablet,delayed release (DR/EC) 81 mg PO DAILY Qty: 90 3RF imipramine HCl 10 mg tablet 10 mg PO BID Qty: 60 1RF atenolol 25 mg tablet 25 mg PO DAILY 90 Days Qty: 90 0RF ketoconazole 2 % cream 1 appl topical DAILY 3 Days Qty: 60 0RF norethindrone acetate 5 mg tablet 5 mg PO DAILY Qty: 90 0RF Rx Instructions: Take 1 tablet a day, day 15-24 every cycle tolterodine 2 mg capsule,extended release 24hr 2 mg PO DAILY 30 Days Qty: 30 2RF Myrbetriq 50 mg tablet extended release 24 hr 50 mg PO DAILY 90 Days Qty: 90 1RF oxybutynin chloride 10 mg tablet extended release 24 hr 10 mg PO DAILY 90 Days Qty: 90 1RF acetaminophen [Tylenol Extra Strength] 500 mg tablet 500 mg PO Q6H PRN (Reason: pain or fever) Qty: 20 0RF azithromycin 250 mg tablet See Rx Instructions .ROUTE .COMPLEX Qty: 6 0RF Rx Instructions: take 500 mg today (day 1), then 250 mg for 4 days (days 2-5) cyclobenzaprine 10 mg tablet 10 mg PO TID PRN (Reason: thoracic pain) 7 Days Qty: 21 0RF naproxen [Naprosyn] 500 mg tablet 500 mg PO BID Qty: 20 0RF oxycodone-acetaminophen [Percocet] 5-325 mg tablet 1 tab PO Q8H PRN (Reason: pain) Qty: 14 0RF Rx Instructions: Partial Fill upon patient request. sertraline PO DAILY Rx Instructions: 110 mg daily dicyclomine 10 mg capsule 10 mg PO Q6H PRN diclofenac sodium 75 mg tablet,delayed release (DR/EC) 75 mg PO BID 7 Days Qty: 14 0RF Rx Instructions: Stop naproxen, meloxicam, do not take Motrin with this medicine prednisone 20 mg tablet 20 mg PO .COMPLEX Qty: 18 0RF Rx Instructions: 20 mg PO 3 p.o. daily for 3 days followed by 2 p.o. daily for 3 days followed by 1 p.o. daily for 3 days; cefuroxime axetil 500 mg tablet 500 mg PO BID 10 Days Qty: 20 0RF famotidine 40 mg tablet 40 mg PO BID ammonium lactate 12 % cream 1 appl topical BID clindamycin phosphate 1 % lotion topical tretinoin 0.1 % cream topical BEDTIME PRN betamethasone dipropionate 0.05 % lotion topical cholestyramine (with sugar) 4 gram powder in packet 1 ea PO BID cholecalciferol (vitamin D3) 25 mcg (1,000 unit) capsule 25 mcg PO DAILY 90 Days Qty: 90 0RF clonazepam 1 mg tablet 1 mg PO TID PRN (Reason: Skin Cleansing) melatonin 10 mg capsule 10 mg BEDTIME glycopyrrolate 1 mg tablet 1 mg PO TID fluoxetine 20 mg capsule 40 mg PO DAILY aripiprazole 5 mg tablet 5 mg PO DAILY carbamazepine 200 mg tablet 200 mg PO QID bupropion HCl 300 mg tablet extended release 24 hr 300 mg PO DAILY cholecalciferol (vitamin D3) 50 mcg (2,000 unit) capsule 50 mcg PO BEDTIME primidone 50 mg tablet 100 mg PO TID pyridoxine (vitamin B6) 100 mg tablet 100 mg PO DAILY 90 Days Qty: 90 1RF pantoprazole 40 mg tablet,delayed release (DR/EC) 40 mg PO BID ibuprofen 800 mg tablet 800 mg PO BID PRN gabapentin 300 mg capsule 300 mg PO TID baclofen 10 mg tablet 10 mg PO BID PRN dicyclomine 20 mg tablet 20 mg PO QID PRN (Reason: diarrhea) aripiprazole 15 mg tablet 0 mg PO calcium carbonate 600 mg calcium (1,500 mg) tablet 600 mg PO BID melatonin 5 mg capsule 5 mg PO BEDTIME PRN solifenacin 5 mg tablet 5 mg PO DAILY Referrals: Mery Torre MD [Primary Care Provider] - 2 days
--- NOTE | 2022-03-08 09:10 | ECG_ITS ---
Test Reason : chest pain Blood Pressure : / mmHG Vent. Rate : 093 BPM Atrial Rate : 093 BPM P-R Int : 140 ms QRS Dur : 090 ms QT Int : 372 ms P-R-T Axes : 030 005 049 degrees QTc Int : 462 ms Normal sinus rhythm Low voltage QRS Nonspecific T wave abnormality Abnormal ECG When compared with ECG of 20-DEC-2021 10:56, Nonspecific T wave abnormality now evident in Inferior leads Referred By: Bekah Neri Electronically Signed By:CHATO ROGERS MD
[2022-03-08] MEDS: Ketorolac Tromethamine 15 MG/ML VIAL IVPUSH ×2 (09:55→11:50)
[2022-03-08] MEDS: Cyclobenzaprine HCl 5 MG TABLET PO (09:55)
[2022-03-08 09:56] LABS: MANUAL DIFF FLAG NO
[2022-03-08 09:57] LABS: Basophils Absolute Auto 0.1 X10*3/uL (0.0-0.2); Basophils Percent Auto 0.6 % (0-2); Eosinophils Absolute Auto 0.1 X10*3/uL (0.0-0.4); Eosinophils Percent Auto 0.8 % (0-4); Hematocrit 42.1 % (37.0-47.0); Hemoglobin 13.5 g/dl (12.0-16.0); Imm Gran Abs Auto 0.03 X10*3/uL (0.00-0.03); Imm Gran Pct Auto 0.3 % (0.0-0.4); Lymphocytes Percent Auto 20.7 % (20-40); Mean Corpuscular HGB Conc 32.1 g/dl (31.0-35.0); Mean Corpuscular Hemoglobin 26.2 pg (27.0-33.0); Mean Corpuscular Volume 81.6 fL (80.0-98.0); Mean Platelet Volume 9.9 fL (9.4-12.3); Monocytes Absolute Auto 0.5 X10*3/uL (0.1-1.2); Monocytes Percent Auto 5.1 % (2-11); Neutrophils Absolute Auto 7.1 x10*3/uL (2.0-8.3); Neutrophils Percent Auto 72.5 % (45-73); Platelet Count 351 X10*3/uL (160-400); Red Blood Count 5.16 X10*6/uL (4.20-5.50); Red Cell Distribution Width 13.8 % (11.0-16.0); White Blood Count 9.8 X10*3/uL (4.8-10.8)
[2022-03-08 09:58] LABS: Appearance Urine Clear; Color Urine Straw; Glucose Urine UA Negative (Negative); Leukocyte Esterase Urine Negative (Negative); Nitrite Urine Negative (Negative); PH 5.5 (5.0-9.0); UMIC TRIGGER UACC YES; Urine Blood Large (3+) (Negative); Urine Ketones Negative (Negative); Urine Protein Negative (Neg-Trace)
[2022-03-08 10:17] LABS: Alanine Aminotransferase 13 U/L (0-31); Albumin Level 4.2 g/dL (3.5-5.0); Alkaline Phosphatase 165 U/L (39-117); Anion Gap 20 (12-20); Aspartate Amino Transferase 20 U/L (5-31); Bilirubin Direct < 0.2 mg/dL (0.0-0.5); Bilirubin Total 0.3 mg/dL (0.0-1.0); Blood Urea Nitrogen 11 mg/dL (9-16); Calcium 9.4 mg/dL (8.4-10.2); Carbon Dioxide 18 mmol/L (22-29); Chloride 105 mmol/L (96-108); Estimated Glomerular Filt Rate > 60; Glucose Random 111 mg/dL (60-115); Lipase 8 U/L (8-78); Potassium 4.9 mmol/L (3.3-5.1); Sodium 138 mmol/L (135-145); Total Protein 7.5 g/dL (6.5-8.0)
[2022-03-08 10:18] LABS: D Dimer High Sensitivity 159 NG/ML
[2022-03-08 10:19] LABS: Bacteria Urine Trace (None Seen); Squamous Epithelial Cell Urine 0-2 /HPF (0-2); WBC Urine 0-5 /HPF (0-5)
[2022-03-08 10:20] LABS: Troponin-I High Sensitivity < 3.5 ng/L (<3.5-17.0)
[2022-03-08 10:20] LABS: Hyaline Casts Urine 0-2 /LPF (0-2); RBC Urine 0-2 /HPF (0-2)
[2022-03-08 11:03] VITALS: BP 114/82; PULSE 88; RESP 18; O2SAT 95
[2022-03-08] MEDS: clonazePAM 1 MG TABLET PO (11:49)
== END 2022-03-08 12:04 | disposition home or self-care (01) ==
PROVIDERS: Physician Assistant; Emergency Provider Emergency Medicine; PCP Student in an Organized Health Care Education/Training Program
DX: R07.89 Other chest pain (principal); R10.11 Right upper quadrant pain; M79.7 Fibromyalgia; R05.9 Cough, unspecified; F17.210 Nicotine dependence, cigarettes, uncomplicated; Z71.6 Tobacco abuse counseling
CPT/HCPCS: 36415; 76705; 80048; 80076; 81001; 83690; 84484; 85025; 85379; 93005; 96374; 96375; 99284; J1885

== ENCOUNTER → 2022-03-26 20:30 | Outpatient (REF) | payer OTHER, SELFPAY | LOC: HO.SL 20:30 | PROVIDERS: PCP Student in an Organized Health Care Education/Training Program; Visit Provider Psychiatry & Neurology Neurology | DX: G47.33 Obstructive sleep apnea (adult) (pediatric) (principal) | CPT/HCPCS: 95810 ==

== ENCOUNTER 2022-03-29 08:49 | Outpatient (REF) | payer OTHER, SELFPAY ==
--- NOTE | 2022-03-29 | PFT_ITS ---
FLOWS: FEV1 95% of predicted at 2.70 L. FVC 93% predicted at 3.27 L. FEV1 to FVC ratio of 0.83. No bronchodilator response. LUNG VOLUMES: Total lung capacity 98% of predicted at 4.85 L. Residual volume 89% of predicted at 1.48 L. Slow vital capacity 103% of predicted at 3.37 L. Expiratory reserve volume 23% of predicted at 0.26 L. Diffusion capacity is normal. IMPRESSION: No obstructive or restrictive ventilatory defect. No bronchodilator response. Decreased expiratory reserve volume suggests extrathoracic restriction likely secondary to abdominal obesity. Doug Houston MD AP/MODL / [id number]
== END 2022-03-29 08:50 | disposition home or self-care (01) ==
LOC: HO.RESP 08:49
PROVIDERS: PCP Student in an Organized Health Care Education/Training Program; Visit Provider Family Medicine
DX: R05.3 Chronic cough (principal)
CPT/HCPCS: 94060; 94727; 94729

== ENCOUNTER → 2022-04-30 08:56 | Outpatient (BNVA) | payer OTHER, SELFPAY | PROVIDERS: PCP Student in an Organized Health Care Education/Training Program; Visit Provider Physician Assistant | DX: Z13.89 Encounter for screening for other disorder (principal) ==

== ENCOUNTER → 2022-05-01 09:58 | Outpatient (BNVA) | payer OTHER, SELFPAY | PROVIDERS: PCP Student in an Organized Health Care Education/Training Program; Visit Provider Surgery | DX: E66.01 Morbid (severe) obesity due to excess calories (principal); I10 Essential (primary) hypertension; I25.10 Atherosclerotic heart disease of native coronary artery without angina pectoris; I21.9 Acute myocardial infarction, unspecified; G45.9 Transient cerebral ischemic attack, unspecified; N39.41 Urge incontinence; K21.9 Gastro-esophageal reflux disease without esophagitis; E78.5 Hyperlipidemia, unspecified; M19.90 Unspecified osteoarthritis, unspecified site; F31.81 Bipolar II disorder; G47.30 Sleep apnea, unspecified; K58.9 Irritable bowel syndrome, unspecified; G47.00 Insomnia, unspecified; Z68.42 Body mass index [BMI] 45.0-49.9, adult | CPT/HCPCS: Q3014 ==

== ENCOUNTER 2022-05-03 06:07 | Outpatient (REF) | payer OTHER, SELFPAY ==
[2022-05-03 06:17] LABS: MANUAL DIFF FLAG NO
[2022-05-03 07:25] LABS: Basophils Absolute Auto 0.1 X10*3/uL (0.0-0.2); Basophils Percent Auto 0.5 % (0-2); Eosinophils Absolute Auto 0.1 X10*3/uL (0.0-0.4); Eosinophils Percent Auto 1.2 % (0-4); Imm Gran Abs Auto 0.04 X10*3/uL (0.00-0.03); Imm Gran Pct Auto 0.4 % (0.0-0.4); Lymphocytes Absolute Auto 1.8 X10*3/uL (1.2-4.9); Lymphocytes Percent Auto 19.1 % (20-40); Mean Corpuscular HGB Conc 32.5 g/dl (31.0-35.0); Mean Corpuscular Hemoglobin 26.3 pg (27.0-33.0); Mean Platelet Volume 10.9 fL (9.4-12.3); Monocytes Absolute Auto 0.5 X10*3/uL (0.1-1.2); Monocytes Percent Auto 5.8 % (2-11); Neutrophils Absolute Auto 6.8 x10*3/uL (2.0-8.3); Platelet Count 336 X10*3/uL (160-400); Red Blood Count 4.94 X10*6/uL (4.20-5.50); White Blood Count 9.4 X10*3/uL (4.8-10.8)
[2022-05-03 07:39] LABS: Estimated Average Glucose 111 mg/dL; Hemoglobin A1c % 5.5 %
[2022-05-03 08:16] LABS: Alanine Aminotransferase 17 U/L (0-31); Albumin Level 4.1 g/dL (3.5-5.0); Alkaline Phosphatase 130 U/L (39-117); Anion Gap 18 (12-20); Aspartate Amino Transferase 17 U/L (5-31); Bilirubin Total 0.4 mg/dL (0.0-1.0); Blood Urea Nitrogen 14 mg/dL (9-16); C Reactive Protein 2.33 mg/dL (< or = 0.50); Calcium 9.3 mg/dL (8.4-10.2); Carbon Dioxide 24 mmol/L (22-29); Chloride 101 mmol/L (96-108); Cholesterol 212 mg/dL; Estimated Glomerular Filt Rate > 60; Glucose Random 103 mg/dL (60-115); HDL Cholesterol 48 mg/dL; Iron 88 mcg/dL (30-160); LDL Cholesterol Calculated 119 mg/dl; Percent Iron Saturation 20 % (15-50); Potassium 4.4 mmol/L (3.3-5.1); Sodium 139 mmol/L (135-145); Total Iron Binding Capacity 444 mcg/dL (228-428); Total Protein 6.8 g/dL (6.5-8.0); Triglycerides 225 mg/dL; Unsaturated Iron Binding 356 ug/dL
[2022-05-03 08:22] LABS: Ferritin 33 ng/mL (10-250); Insulin 6 uU/mL (2-29); TSH reflex Free T4 0.82 uIU/mL (0.32-4.0); Vitamin D 25-OH Total 28.7 ng/mL (>30)
[2022-05-03 08:37] LABS: Folate 8.7 ng/mL (> or = 4.0); Vitamin B12 309 pg/mL (200-900)
[2022-05-06 15:39] LABS: PTHI 105 pg/mL (16-77)
[2022-05-08 08:39] LABS: Zinc 97 mcg/dL (60-130)
[2022-05-08 15:44] LABS: Vitamin B1 7 nmol/L (8-30)
[2022-05-08 16:48] LABS: Vitamin A 72 mcg/dL (38-98)
== END 2022-05-03 06:08 | disposition home or self-care (01) ==
LOC: HO.LAB 06:07
PROVIDERS: PCP Student in an Organized Health Care Education/Training Program; Visit Provider Surgery
DX: E66.01 Morbid (severe) obesity due to excess calories (principal); E78.5 Hyperlipidemia, unspecified; G45.9 Transient cerebral ischemic attack, unspecified; G47.30 Sleep apnea, unspecified; I21.9 Acute myocardial infarction, unspecified; I25.10 Atherosclerotic heart disease of native coronary artery without angina pectoris; K21.9 Gastro-esophageal reflux disease without esophagitis
CPT/HCPCS: 36415; 80053; 80061; 82306; 82607; 82728; 82746; 83036; 83525; 83540; 83970; 84425; 84443; 84590; 84630; 85025; 86140

== ENCOUNTER 2022-05-04 09:58 | Outpatient (REF) | payer OTHER, SELFPAY ==
--- NOTE | ~2022-05-04 | MM_ITS ---
EXAMINATION: MM SCREENING DIGITAL BREAST TOMOSYNTHESIS, BILATERAL CLINICAL INFORMATION: Screening. Asymptomatic. The lifetime risk of breast cancer based on the Tyrer-Cuzick Model is 6%. COMPARISON: Mammography: 04/03/2021, 04/16/2020, 03/08/2019 TECHNIQUE: Digital breast tomosynthesis is performed in both the craniocaudal and mediolateral oblique views along with computer-aided detection (CAD). Synthesized 2D images are generated from the tomosynthesis. Additional left CC view is provided. FINDINGS: There are scattered areas of fibroglandular density (ACR BI-RADS breast composition Category b). Right breast parenchymal pattern is similar to prior studies and there is no interval mass or architectural abnormality or developing density. Neither breast shows abnormal calcifications. The axilla and skin contours are unremarkable. Left breast has new circumscribed oval nodule mid 2:30 position under 1 cm, possibly a cyst. Patient will be recalled for additional imaging. MM/MM tomosynthesis screening BI IMPRESSION: Left: -New benign-appearing circumscribed nodule mid 2:30 under 1 cm, possibly a cyst. Right: -No mammographic evidence of malignancy. ASSESSMENT: BI-RADS 0: Incomplete - Need Additional Imaging Evaluation RECOMMENDATION: 1. Targeted left breast ultrasound. 2. Radiology department staff will contact the patient for additional imaging. This patient's information was entered into a reminder system with a target due date for their next mammogram.
== END 2022-05-04 09:59 | disposition home or self-care (01) ==
LOC: HO.MAMMO 09:58
PROVIDERS: PCP Student in an Organized Health Care Education/Training Program; Visit Provider Student in an Organized Health Care Education/Training Program
DX: Z12.31 Encounter for screening mammogram for malignant neoplasm of breast (principal)
CPT/HCPCS: 77063; 77067

== ENCOUNTER 2022-05-09 13:18 | Outpatient (REF) | payer OTHER, SELFPAY ==
--- NOTE | ~2022-05-09 | US_ITS ---
EXAMINATION: US DIAGNOSTIC ULTRASOUND BREAST, LEFT CLINICAL INFORMATION: Recall from recent mammography for new oval circumscribed nodule mid 2:30 left breast. COMPARISON: Mammography 05/04/2022, 02/01/2022. TECHNIQUE: Ultrasound left breast is targeted to the upper and outer quadrant. Grayscale imaging and color Doppler are performed without and with harmonics. FINDINGS: There is an oval anechoic cyst 3:00 position 11 cm from nipple measuring approximately 0.8 x 0.5 cm. There is increased through-transmission of sound and no associated color flow. This corresponds to finding on mammography. There is no solid mass or architectural abnormality. Results are discussed with the patient at time of visit. US/US breast LT limited IMPRESSION: -Incidental cyst 3:00 position corresponding to finding on recent mammography. ASSESSMENT: BI-RADS 2: Benign RECOMMENDATION: Routine annual mammography screening. This patient's information was entered into a reminder system with a target due date for their next mammogram.
--- NOTE | 2022-05-09 14:11 | ECG_ITS ---
Test Reason : e66.01 Blood Pressure : / mmHG Vent. Rate : 101 BPM Atrial Rate : 101 BPM P-R Int : 136 ms QRS Dur : 092 ms QT Int : 354 ms P-R-T Axes : 062 057 039 degrees QTc Int : 459 ms Sinus tachycardia Nonspecific T wave abnormality Abnormal ECG When compared with ECG of 08-MAR-2022 09:26, Nonspecific T wave abnormality no longer evident in Lateral leads Referred By: Aris Arceo Electronically Signed By:Koko Roque
== END 2022-05-09 13:19 | disposition home or self-care (01) ==
LOC: HO.MAMMO 13:18
PROVIDERS: Absent Provider Surgery; PCP Student in an Organized Health Care Education/Training Program; Visit Provider Student in an Organized Health Care Education/Training Program
DX: N63.21 Unspecified lump in the left breast, upper outer quadrant (principal); E66.01 Morbid (severe) obesity due to excess calories; I25.10 Atherosclerotic heart disease of native coronary artery without angina pectoris; I21.9 Acute myocardial infarction, unspecified; G45.9 Transient cerebral ischemic attack, unspecified; E78.5 Hyperlipidemia, unspecified; K21.9 Gastro-esophageal reflux disease without esophagitis; G47.30 Sleep apnea, unspecified
CPT/HCPCS: 76642; 93005

== ENCOUNTER → 2022-05-22 09:01 | Outpatient (REF) | payer OTHER, SELFPAY ==
--- NOTE | 2022-05-22 09:04 | CA_ITS ---
Acquisition Time: 2022-05-22 09:24:34 Total Exercise Time: 00:04:28 Test Indications: Abnormal ECG Medications: SEE H Protocol: JULIENNE Max HR: 179 BPM 102% of Pred: 175 BPM Max BP: 170/090 mmHG Max Work Load: 6.3 METS Exercise stress test with exercise 4 min 29 sec of Julienne protocol, achieving over 85% MPHR, 6.3 METs, with moderate sob, with decreased capacity for age, without chest discomfort with isolated PVC, with normotensive response to exercise, without EKG changes meeting criteria for ischemia. There was sinus tachycardia at baseline and in recovery, with heart rate in 120s. Pt admits to much anxiety otherwise is asymptomatic. Test reviewed with Dr Capone. Referred By: Aris Arceo Overread By: RENARD BURGESS
== END ==
LOC: HO.CARD 09:01
PROVIDERS: Visit Provider Surgery
DX: Z01.818 Encounter for other preprocedural examination (principal); R06.02 Shortness of breath; R94.31 Abnormal electrocardiogram [ECG] [EKG]; E66.01 Morbid (severe) obesity due to excess calories
CPT/HCPCS: 93017; 97802

== ENCOUNTER → 2022-05-27 11:29 | Outpatient (BNVA) | payer OTHER, SELFPAY | PROVIDERS: PCP Student in an Organized Health Care Education/Training Program; Visit Provider Nurse Practitioner Family | DX: N32.81 Overactive bladder (principal); N39.41 Urge incontinence; F50.81 Binge eating disorder; F33.1 Major depressive disorder, recurrent, moderate | CPT/HCPCS: 51798; 90791; 99212 ==

== ENCOUNTER → 2022-05-31 08:40 | Outpatient (BNVA) | payer OTHER, SELFPAY | PROVIDERS: PCP Student in an Organized Health Care Education/Training Program; Visit Provider Surgery | DX: E66.01 Morbid (severe) obesity due to excess calories (principal); Z68.42 Body mass index [BMI] 45.0-49.9, adult | CPT/HCPCS: Q3014 ==

== ENCOUNTER → 2022-06-18 09:01 | Outpatient (BNVA) | payer OTHER, SELFPAY | PROVIDERS: PCP Student in an Organized Health Care Education/Training Program; Visit Provider Physician Assistant | DX: Z11.0 Encounter for screening for intestinal infectious diseases (principal); F50.81 Binge eating disorder; F33.1 Major depressive disorder, recurrent, moderate | CPT/HCPCS: 90832; 99211 ==

== ENCOUNTER 2022-06-18 18:24 | Outpatient (REF) | payer OTHER, SELFPAY ==
[2022-06-19 14:13] LABS: H Pylori Breath Test Negative (Negative)
== END 2022-06-18 18:25 | disposition home or self-care (01) ==
LOC: HO.LNP 18:24
PROVIDERS: Visit Provider Surgery
DX: K21.9 Gastro-esophageal reflux disease without esophagitis (principal); E66.01 Morbid (severe) obesity due to excess calories
CPT/HCPCS: 83013

== ENCOUNTER → 2022-06-20 13:48 | Outpatient (BNVA) | payer OTHER, SELFPAY | PROVIDERS: PCP Student in an Organized Health Care Education/Training Program; Visit Provider Nurse Practitioner Family | DX: Z13.89 Encounter for screening for other disorder (principal) ==

== ENCOUNTER 2022-06-26 08:32 | Outpatient (REF) | payer OTHER, SELFPAY ==
--- NOTE | ~2022-06-26 | US_ITS ---
EXAMINATION: US COMPLETE ABDOMEN WITH LIVER ELASTOGRAPHY CLINICAL INFORMATION: Morbid/severe obesity. History of pancreatitis. COMPARISON: None TECHNIQUE: Real-time imaging of the abdominal viscera. Noninvasive ultrasound liver fibrosis assessment is performed using Marry ElastPQ point quantification shear wave elastography (2D-SWE) with a C5-2 MHz transducer. Multiple elastography samples are obtained. FINDINGS: PANCREAS: The pancreas is hyperechoic, enlarged and prominent. No peripancreatic haziness seen. No peripancreatic fluid collection. ABDOMINAL AORTA: The proximal, middle, and distal aortic segments are normal in caliber. INFERIOR VENA CAVA: Visualized portions are normal. LIVER: The liver demonstrates normal size, contour and increased echogenicity. No focal lesion or intrahepatic biliary duct dilatation. The right lobe measures 17.7 cm in length. The left lobe measures 11.3 cm in length. Portal flow is hepatopedal. Shear wave liver elastography median stiffness is 1.19 m/s (reference: normal median stiffness is 1.3 m/s or less). IQR/median stiffness to assess sampling precision is 0.14 (reference: good quality data set is IQR/median stiffness of 0.15 or less). GALLBLADDER: Gallbladder wall thickness is 0.2 cm. The gallbladder is physiologically distended without evidence of stones, sludge, polyps, wall thickening or pericholecystic fluid. COMMON BILE DUCT: Normal in caliber measuring 0.3 cm in diameter. RIGHT KIDNEY: Normal. No hydronephrosis. No renal calculi or focal parenchymal lesions. The kidney measures 13.3 cm in maximum dimension. LEFT KIDNEY: Normal. No hydronephrosis. No renal calculi or focal parenchymal lesions. The kidney measures 14.1 cm in maximum dimension. SPLEEN: Normal. The spleen measures 11.5 cm in maximum dimension. FREE FLUID: None US/US abdomen comp w elastography IMPRESSION: 1. Diffuse echogenic liver with areas of focal fatty sparing adjacent to gallbladder. 2. Liver elastography: Median liver stiffness measures 1.19 m/s suggestive of high probability normal. REFERENCE: Society of Radiologists in Ultrasound Liver Stiffness Thresholds (2019): LIVER STIFFNESS THRESHOLDS: *Liver Stiffness equal or less than 1.3 m/s: High probability of being normal. *Liver Stiffness less than 1.7 m/s: In the absence of other known clinical signs, rules out compensated advanced chronic liver disease. *Liver Stiffness 1.7-2.1 m/s: Suggestive of compensated advanced chronic liver disease but need further test for confirmation. *Liver Stiffness over 2.1 m/s: Rules in compensated advanced chronic liver disease. *Liver Stiffness over 2.4 m/s: Suggestive of clinically significant portal hypertension. QUALITY OF DATA SET: *IQR/Median value equal or less than 0.15 implies a quality data set. *IQR/Median value over 0.15 implies a poor quality data set. SIGNIFICANT CHANGE FROM PRIOR EXAM: Significant change if liver stiffness measurement is 10% or greater from prior exam. OTHER CONSIDERATIONS: The stage of liver fibrosis may be overestimated in the setting of acute hepatitis, liver inflammation, elevated liver function tests, hepatic vascular congestion, obstructive cholestasis, non-fasting state, and infiltrative diseases such as amyloidosis and lymphoma. In some patients with NAFLD, the liver stiffness thresholds for compensated advanced chronic liver disease may be lower. In causes other than viral hepatitis and NAFLD, liver stiffness thresholds are not well established.
--- NOTE | ~2022-06-26 | XR_ITS ---
EXAMINATION: XR CHEST CLINICAL INFORMATION: Morbid obesity. COMPARISON: 03/07/2022 and studies dating back to 08/19/2020. TECHNIQUE: 2 views of the chest were obtained. FINDINGS: There is no evidence of acute parenchymal disease, pneumothorax, or pleural effusion. Heart normal size. No evidence of pulmonary edema. Multiple old left-sided rib fractures are evident. XR/XR chest 2V IMPRESSION: No acute disease.
== END 2022-06-26 08:33 | disposition home or self-care (01) ==
LOC: HO.US 08:32
PROVIDERS: PCP Student in an Organized Health Care Education/Training Program; Visit Provider Surgery
DX: Z01.818 Encounter for other preprocedural examination (principal); E66.01 Morbid (severe) obesity due to excess calories; E78.5 Hyperlipidemia, unspecified; G45.9 Transient cerebral ischemic attack, unspecified; G47.30 Sleep apnea, unspecified; I21.9 Acute myocardial infarction, unspecified; I25.10 Atherosclerotic heart disease of native coronary artery without angina pectoris; K21.9 Gastro-esophageal reflux disease without esophagitis
CPT/HCPCS: 71046; 76705; 76981

== ENCOUNTER 2022-07-01 10:24 | Outpatient (REF) | payer OTHER, SELFPAY ==
--- NOTE | ~2022-07-01 | FL_ITS ---
EXAMINATION: XR FLUOROSCOPY UPPER GI WITH AIR CLINICAL INFORMATION: Morbid obesity due to excess calories COMPARISON: None TECHNIQUE: Routine upper GI air-contrast study was performed in upright and lying position FINDINGS: Following oral administration of thick barium and effervescent granules there is normal propagation bolus from the oral cavity through the pharynx, esophagus into stomach without any evidence of obstruction, narrowing or stricture. On placing patient supine and prone lying the course, caliber and peristalsis of the stomach, duodenal bulb and the sweep is normal. The mucosal pattern of the stomach, duodenal bulb and the sweep is normal. There is moderate gastroesophageal reflux without hiatal hernia. FLUOROSCOPY TIME: 1.3 minutes DOSE AREA PRODUCT: 45.91 uGy-m2 (microgray-meter squared) FL/FL upper GI w air IMPRESSION: Moderate gastroesophageal reflux otherwise unremarkable upper GI contrast study.
== END 2022-07-01 10:25 | disposition home or self-care (01) ==
LOC: HO.XRAY 10:24
PROVIDERS: Visit Provider Surgery
DX: K21.9 Gastro-esophageal reflux disease without esophagitis (principal); E66.01 Morbid (severe) obesity due to excess calories
CPT/HCPCS: 74246

== ENCOUNTER → 2022-07-03 08:04 | Outpatient (BNVA) | payer OTHER, SELFPAY | PROVIDERS: PCP Student in an Organized Health Care Education/Training Program; Visit Provider Surgery | DX: E66.01 Morbid (severe) obesity due to excess calories (principal); Z68.41 Body mass index [BMI] 40.0-44.9, adult | CPT/HCPCS: Q3014 ==

== ENCOUNTER 2022-07-15 07:05 | Day surgery (SDC) | payer OTHER, SELFPAY ==
[2022-07-09 12:18] VITALS: BMI 42.7
--- NOTE | 2022-07-12 11:07 | HO.ANESPROP2 ---
Documented by User: Mindy Strauss NP 07/12/22 11:11 HPI - Anesthesia Eval Consult details Narrative: 47yo F for Interstim Generator Implant and lead exchange [facility] Active Problems Active Problems: All Active Problems (Updated 05/27/22 @ 14:54 by Isamar Diggs) Pain in lower back (Acute) Surgical wound present (Acute) Bladder hypertonicity (Acute) Urgency of micturition (Acute) Urgency incontinence (Acute) DEON (stress urinary incontinence, female) (Acute) Somatic dysfunction of right sacroiliac joint (Acute) Anxiety disorder due to multiple medical problems (Acute) Rash (Acute) Cough (Acute) Rib fracture (Acute) Hypertension, essential (Acute) Metrorrhagia (Acute) Family history of heart disease (Acute) Vitamin D deficiency (Acute) Encounter for general adult medical examination with abnormal findings (Acute) Obesity due to excess calories (Acute) Acute sinusitis (Acute) Myocardial infarction (Acute) Vitamin B12 deficiency (Acute) Vitamin B1 deficiency (Acute) Abnormal EKG (Acute) Binge-eating disorder, in partial remission, moderate (Acute) Major depressive disorder, recurrent, moderate (Acute) Sleep apnea (Acute) IBS (irritable bowel syndrome) (Acute) Insomnia (Acute) Bipolar II disorder (Acute) Arthritis (Acute) GERD (gastroesophageal reflux disease) (Acute) Hyperlipidemia (Acute) TIA (transient ischemic attack) (Acute) Coronary artery disease (Acute) Morbid obesity (Acute) Overactive bladder (Acute) Hospital discharge follow-up (Acute) Abnormal CT of the abdomen (Acute) Dyspnea (Acute) Obesity (Acute) Past Medical History Medical History Abnormal CT of the abdomen Arthritis Back pain Bipolar II disorder Coronary artery disease Dyspnea Fibromyalgia GERD (gastroesophageal reflux disease) History of NM (myocardial infarction) History of urinary incontinence Hospital discharge follow-up Hyperkalemia Hyperlipidemia IBS (irritable bowel syndrome) Insomnia Lab test negative for COVID-19 virus Morbid obesity Obesity Optic neuritis Overactive bladder Partial bowel obstruction Rectal prolapse Sleep apnea Small bowel obstruction TIA (transient ischemic attack) Family History Family History (Updated 04/30/22 @ 09:28 by SASHA Parish) Mother Afib Heart disease Father Cardiac failure Respiratory failure Brother Afib Brother Hypertension Brother Hypertension Son No problems noted. Surgical History Surgical History (Updated 07/09/22 @ 12:10 by Meg Santoyo RN) H/O cystoscopy (06/08/19) History of carpal tunnel release of both wrists History of pubovaginal sling (10/19/19) History of surgery History of total left knee replacement (TKR) (11/2016) History of total right knee replacement (06/2016) Hx of thumb surgery Social History Social History (Updated 04/30/22 @ 09:25 by SASHA Parish) Household Members: Family Housing: House Alcohol intake: current Alcohol intake frequency: holidays/special occasions only Patient Tobacco Use Status: Former Tobacco user Tobacco use type: Cigarette Cigarette Packs Per Day: 1 Cigarettes Per Day: 20 Years Smoked: 20 Second Hand Smoke Exposure: No Use of substances other than those prescribed or required for medical reasons: No Substance Use Type: Marijuana Advance Directives: No Advance Directives Information Provided: Yes service: No Current occupational status: unemployed Meds Allergies Allergy/AdvReac Type Severity Reaction Status Date / Time Penicillins Allergy Severe ITCHING/SWE Verified 06/18/22 09:13 LLING doxycycline [DOXYCYCLINE] Allergy Intermediate SEVERE Verified 06/18/22 09:13 ITCHING, pruritis sulfamethoxazole [Bactrim] Allergy Unknown Unknown Verified 06/18/22 09:13 Sulfa (Sulfonamide Allergy Chest Pain Verified 06/18/22 09:13 Antibiotics) Home Medications Medication Instructions Recorded Confirmed Last Taken Type carbamazepine 200 mg tablet 200 mg PO QID 01/26/20 07/09/22 05/09/20 06:30 History clonazepam 1 mg tablet 1 mg PO TID PRN Skin Cleansing 01/26/20 07/09/22 05/09/20 06:30 History fluoxetine 20 mg capsule 40 mg PO DAILY 01/26/20 07/09/22 03/04/20 History betamethasone dipropionate 0.05 % topical itch 10/27/20 05/27/22 Unknown History lotion ibuprofen 800 mg tablet 800 mg PO BID PRN Pain 06/04/21 07/09/22 Unknown History pantoprazole 40 mg tablet,delayed 40 mg PO BID 06/04/21 07/09/22 Unknown History release calcium carbonate 600 mg calcium 600 mg PO BID 08/31/21 07/09/22 Unknown History (1,500 mg) tablet amlodipine 10 mg tablet 10 mg PO DAILY 04/30/22 07/09/22 Unknown History aripiprazole 15 mg tablet 7.5 mg PO DAILY 04/30/22 07/09/22 Unknown History atorvastatin 10 mg tablet 10 mg PO DAILY 05/01/22 07/09/22 Unknown History Exam Exam Date and Time: July 12, 2022 1107 Height,Weight and Vital Signs: Height 5 ft 3 in Weight 109.543 kg Pertinent Lab Results Pertinent Lab Results: Laboratory Tests 03/15/20 03/21/20 05/03/22 09:56 15:10 06:16 WBC 6.9 9.4 Hgb 12.7 13.0 Hct 39.2 40.0 Plt Count 303 336 Sodium 139 Potassium 4.5 Chloride 105 Carbon Dioxide 24 BUN 18 H Creatinine 0.73 05/03/22 06:16 WBC Hgb Hct Plt Count Sodium 139 Potassium 4.4 Chloride 101 Carbon Dioxide 24 BUN 14 Creatinine 0.72 Narrative Narrative: EKG 04/2022 Vent. Rate : 101 BPM ? ? Atrial Rate : 101 BPM ?? P-R Int : 136 ms? QRS Dur : 092 ms ? ? QT Int : 354 ms ? ? ? P-R-T Axes : 062 057 039 degrees ?? QTc Int : 459 ms ? Sinus tachycardia Nonspecific T wave abnormality Abnormal ECG When compared with ECG of 08-MAR-2022 09:26, Nonspecific T wave abnormality no longer evident in Lateral leads Stress Test 04/2022 Protocol: VICTORINO ? Max HR: 179 BPM? 102% of? Pred: 175 BPM Max BP: 170/090 mmHG Max Work Load: 6.3 METS ? Exercise stress test with exercise 4 min 29 sec of Victorino protocol, achieving over 85% MPHR, 6.3 METs, with moderate sob, with decreased capacity for age, without chest discomfort ?with isolated PVC, with normotensive response to exercise, without EKG changes ?meeting criteria for ischemia.? There was sinus tachycardia at baseline and in ?recovery, with heart rate in 120s. Pt admits to much anxiety otherwise is ?asymptomatic. Test reviewed with Dr Capone. Assessment and Plan Assessment Anesthesia Assessment: Chart Reviewed Documented by User: David Rascon MD 07/15/22 10:29 [facility] Past Medical History Medical History Abnormal CT of the abdomen Arthritis Back pain Bipolar II disorder Coronary artery disease Dyspnea Fibromyalgia GERD (gastroesophageal reflux disease) History of NM (myocardial infarction) History of urinary incontinence Hospital discharge follow-up Hyperkalemia Hyperlipidemia IBS (irritable bowel syndrome) Insomnia Lab test negative for COVID-19 virus Morbid obesity Obesity Optic neuritis Overactive bladder Partial bowel obstruction Rectal prolapse Sleep apnea Small bowel obstruction TIA (transient ischemic attack) Patient : No Family History Family History (Updated 04/30/22 @ 09:28 by SASHA Parish) Mother Afib Heart disease Father Cardiac failure Respiratory failure Brother Afib Brother Hypertension Brother Hypertension Son No problems noted. Family history of problems with anesthesia: No Surgical History Surgical History (Updated 07/09/22 @ 12:10 by Meg Santoyo RN) H/O cystoscopy (06/08/19) History of carpal tunnel release of both wrists History of pubovaginal sling (10/19/19) History of surgery History of total left knee replacement (TKR) (11/2016) History of total right knee replacement (06/2016) Hx of thumb surgery History of Problems with Anesthesia: No Social History Social History (Updated 04/30/22 @ 09:25 by SASHA Parish) Household Members: Family Housing: House Alcohol intake: current Alcohol intake frequency: holidays/special occasions only Patient Tobacco Use Status: Former Tobacco user Tobacco use type: Cigarette Cigarette Packs Per Day: 1 Cigarettes Per Day: 20 Years Smoked: 20 Second Hand Smoke Exposure: No Use of substances other than those prescribed or required for medical reasons: No Substance Use Type: Marijuana Advance Directives: No Advance Directives Information Provided: Yes service: No Current occupational status: unemployed Meds Allergies Allergy/AdvReac Type Severity Reaction Status Date / Time Penicillins Allergy Severe ITCHING/SWE Verified 06/18/22 09:13 LLING doxycycline [DOXYCYCLINE] Allergy Intermediate SEVERE Verified 06/18/22 09:13 ITCHING, pruritis sulfamethoxazole [Bactrim] Allergy Unknown Unknown Verified 06/18/22 09:13 Sulfa (Sulfonamide Allergy Chest Pain Verified 06/18/22 09:13 Antibiotics) Home Medications Medication Instructions Recorded Confirmed Last Taken Type carbamazepine 200 mg tablet 200 mg PO QID 01/26/20 07/09/22 05/09/20 06:30 History clonazepam 1 mg tablet 1 mg PO TID PRN Skin Cleansing 01/26/20 07/09/22 05/09/20 06:30 History fluoxetine 20 mg capsule 40 mg PO DAILY 01/26/20 07/09/22 03/04/20 History betamethasone dipropionate 0.05 % topical itch 10/27/20 05/27/22 Unknown History lotion ibuprofen 800 mg tablet 800 mg PO BID PRN Pain 06/04/21 07/09/22 Unknown History pantoprazole 40 mg tablet,delayed 40 mg PO BID 06/04/21 07/09/22 Unknown History release calcium carbonate 600 mg calcium 600 mg PO BID 08/31/21 07/09/22 Unknown History (1,500 mg) tablet amlodipine 10 mg tablet 10 mg PO DAILY 04/30/22 07/09/22 Unknown History aripiprazole 15 mg tablet 7.5 mg PO DAILY 04/30/22 07/09/22 Unknown History atorvastatin 10 mg tablet 10 mg PO DAILY 05/01/22 07/09/22 Unknown History Exam Airway Mallampati Class: I TM Dist: >3cm Neck ROM: Full Heart: ok Lungs: ok Assessment and Plan Assessment Anesthesia Assessment: Anesthesia Plan Discussed Final Anesthetic Review Family History of Problems with Anesthesia: No History of Problems with Anesthesia: No NPO: Yes ASA Class: III Final Preanesthetic Review: No Changes in Pt Med Stat, Meds/Allgs Chart Reviewed, Consent Obtained/Reviewed and Anes Risks/Benef Reviewed Patient Risk: Intermediate Procedure Risk: Intermediate Anesthetic Plan Anesthetic Plan: GA and Agree w/ Assess. and Plan Disposition: Standard PACU
[2022-07-15] VITALS (7 sets, daily range): BP systolic 102–114; BP diastolic 70–74; PULSE 72–89; RESP 14–18; TEMP 36.1–36.6; O2SAT 95–97; BMI 42.3
--- NOTE | ~2022-07-15 | FL_ITS ---
EXAMINATION: XR FLUOROSCOPY WITH IMAGES CLINICAL INFORMATION: InterStim. COMPARISON: None available. TECHNIQUE: Fluoroscopy Supervised By: Dr. Omid Cartagena. Fluoroscopy Time: 74.6 seconds. Cumulative Dose: 64.07 mGy. Images: 3. FINDINGS: There are 3 digital images obtained revealing a neurostimulator inserted through the sacral neural foramina at the S3 level. Limited visualized bones are grossly unremarkable. FL/FL guidance in OR IMPRESSION: Fluoroscopy guidance was provided to Dr. Anne for pain management.
[2022-07-15 07:48] LABS: Urine Pregnancy NEGATIVE (NEGATIVE)
[2022-07-15 07:49] LABS: UPreg QC Valid YES
[2022-07-15] MEDS: Acetaminophen 325 MG TABLET 975 MG PO (08:01)
[2022-07-15] MEDS: Lactated Ringers 1,000 ML 100 ML IVCONT (08:03)
--- NOTE | 2022-07-15 10:40 | W.PM.OPN ---
Operative Note Operative Note Date of Service: 07/15/22 Narrative: PreOperative Diagnosis: Overactive bladder with urinary urgency and frequency Post Operative Diagnosis: Overactive bladder with urinary urgency and frequency Procedure: 1.) Removal of InterStim lead 2.) Removal of InterStim battery 3.) Placement of InterStim lead 4.) Placement of InterStim battery Surgeon: Dr Osiel Anne Anesthesia: sedation Indications for procedure: recharge system placed 2020 - impedance in lead high indicating resistance Procedure: After informed consent was verified the patient was brought to the operating room. Sedation anesthesia was administered per protocol. The patient was placed in a prone position and prepped and draped in a sterile fashion. Safety pause time-out was performed. Local anesthetic was infiltrated around the initial battery pocket incision on the right lateral superior buttock. Incision was made and taken down till the small battery was encountered. The battery pocket was opened and a battery brought out to the skin. Using the C-arm and a snap the lead entering S3 on the right side was targeted. Local anesthetic was infiltrated around the prior incision and incision made through the skin. Using blunt dissection the original lead was isolated and brought up through our skin incision. This was get disconnected from the battery to give us the full lead in the sacral position. The lead was dissected down until we could palpate the transition to the thickened plastic. Using a right angle clamp we were able to fully withdrawal the old lead from its position in the S3 foramen. A bend with break was seen between lead point 1 and 2 Using the C-arm in an AP and lateral view the finding needle was introduced into the S3 foramen running from a caudad to chordal direction. Initial placement was into S4 with ankle stimulation. Needle repositioning and testing was performed till S3 entry with correct angle was obtained. Using the inspecting and testing lead hand we could confirm good toe movement and Roman response at low stimulation. The internal introducer from the needle was removed and the control lead placed. The finder needle was removed and the dilator sheath introduced. Under fluoroscopic guidance the dilator sheath was advanced till the marker was seen mid point through the sacral bone on the lateral image. The internal cannula from the dilator was removed. The guidewire was removed. The active lead was then introduced through the dilator sheath and advanced so that the 3rd and 4th marked electrodes crossed the internal boundary line of the sacrum. The testing electrode was then hooked up to each of the wire electrodes 0 through 3 and good Roman and toe response is was seen at low amplitude less than 1.0 amps. This confirmed the clinically relevant position of the live wire. Under live fluoroscopy the introducer sheath was removed deploying the tines of the wire ensuring that the live wire remained in the previously described position. The desired battery pocket location was reviewed with fluroscopy over the alar pelvic wing. This was a separate location from previous. An incision wa made and pocket developed. The tunneling device was then used to bridge the distance between the sacral vertical incision and the desired location of the battery pocket. The live wire was placed through the tunneling device and brought out into the battery pocket. The sacral incision was washed with water. A new battery was connected to the live wire and placed into the subcutaneous pocket. The battery was tested and had positive package pick up and displayed normal impedance on all 4 channels. The battery pocket had been washed with sterile water prior to placement of the battery. Interrupted 3-0 Vicryl sutures were used to close the defect spaces and bring skin edges together. Running 4-0 Monocryl sutures were used to appose skin edges. Incisions were dressed using skin glue followed by Tegaderm dressing. Patient tolerated procedure well and was transferred in stable condition to the recovery area. CPT full device replacement 42624, [id number], [id number]
[2022-07-15] MEDS: oxyCODONE HCl Immed Release 5 MG TABLET 10 MG PO (11:14)
== END 2022-07-15 11:49 | disposition home or self-care (01) ==
PROVIDERS: Nurse Practitioner; PCP Student in an Organized Health Care Education/Training Program; Visit Provider Urology
PROC: (CPT 64590; principal; 2022-07-15 08:40)
DX: N39.41 Urge incontinence (principal); N32.81 Overactive bladder; R35.0 Frequency of micturition; Z96.0 Presence of urogenital implants; G47.33 Obstructive sleep apnea (adult) (pediatric); M79.7 Fibromyalgia; I25.10 Atherosclerotic heart disease of native coronary artery without angina pectoris; I25.2 Old myocardial infarction; F31.9 Bipolar disorder, unspecified; E78.5 Hyperlipidemia, unspecified; E87.5 Hyperkalemia; E66.01 Morbid (severe) obesity due to excess calories; Z79.82 Long term (current) use of aspirin; Z79.1 Long term (current) use of non-steroidal anti-inflammatories (NSAID); Z79.899 Other long term (current) drug therapy; Z88.2 Allergy status to sulfonamides; Z88.0 Allergy status to penicillin; Z88.1 Allergy status to other antibiotic agents; Z86.73 Personal history of transient ischemic attack (TIA), and cerebral infarction without residual deficits; Z87.891 Personal history of nicotine dependence; F12.90 Cannabis use, unspecified, uncomplicated
CPT/HCPCS: 64590; 64561; 81025; C1767; C1778; C1787; J1956; J2250; J2405; J2795; J3010; J3370

== ENCOUNTER → 2022-07-22 14:38 | Outpatient (BNVA) | payer OTHER, SELFPAY | PROVIDERS: PCP Student in an Organized Health Care Education/Training Program; Visit Provider Urology ==

== ENCOUNTER → 2022-08-13 11:48 | Outpatient (BNVA) | payer OTHER, SELFPAY | PROVIDERS: PCP Student in an Organized Health Care Education/Training Program; Visit Provider Urology | DX: N32.81 Overactive bladder (principal); N39.41 Urge incontinence; Z96.0 Presence of urogenital implants; Z79.82 Long term (current) use of aspirin; Z79.899 Other long term (current) drug therapy | CPT/HCPCS: 51798; 99212 ==

== ENCOUNTER 2022-08-31 07:58 | Outpatient (REF) | payer OTHER, SELFPAY ==
[2022-08-31 09:06] LABS: Alanine Aminotransferase 11 U/L (0-31); Alkaline Phosphatase 78 U/L (39-117); Amylase 32 U/L (28-100); Aspartate Amino Transferase 12 U/L (5-31); Bilirubin Direct 0.2 mg/dL (0.0-0.5); Bilirubin Total 0.5 mg/dL (0.0-1.0); Total Protein 6.1 g/dL (6.5-8.0)
== END 2022-08-31 07:59 | disposition home or self-care (01) ==
LOC: HO.LAB 07:58
PROVIDERS: PCP Student in an Organized Health Care Education/Training Program; Visit Provider Student in an Organized Health Care Education/Training Program
DX: R10.9 Unspecified abdominal pain (principal)
CPT/HCPCS: 36415; 80076; 82150

== ENCOUNTER 2022-12-23 08:32 | Emergency (ER) | payer OTHER, SELFPAY ==
--- NOTE | ~2022-12-23 | XR_ITS ---
EXAMINATION: XR CHEST CLINICAL INFORMATION: Chest pain COMPARISON: 06/26/2022 TECHNIQUE: Frontal view of the chest was obtained. FINDINGS: No significant abnormality is noted involving the heart, lungs, mediastinum. There is healed fracture deformity of multiple ribs bilaterally of indeterminate age. XR/XR chest 1V IMPRESSION: No active cardiopulmonary disease
[2022-12-23 08:45] VITALS: BP 125/54; PULSE 90; RESP 16; TEMP 36.7; O2SAT 100; BMI 38.6
--- NOTE | 2022-12-23 08:45 | ECG_ITS ---
Test Reason : chest pain Blood Pressure : / mmHG Vent. Rate : 082 BPM Atrial Rate : 082 BPM P-R Int : 150 ms QRS Dur : 096 ms QT Int : 400 ms P-R-T Axes : 059 021 035 degrees QTc Int : 467 ms Normal sinus rhythm Nonspecific T wave abnormality Abnormal ECG When compared with ECG of 09-MAY-2022 14:20, Heart rate has decreased Referred By: Vaibhav Guardado Electronically Signed By:OBDULIA DUEÑAS
--- NOTE | 2022-12-23 08:48 | ED.ARRPALP ---
HPI - Arrhythmia/Palpitations General Chief Complaint: Chest Pain Stated Complaint: ACHY CP PER EMS Time Seen by Provider: 12/23/22 08:40 Source: patient and EMS Mode of arrival: EMS Limitations: no limitations History of Present Illness HPI narrative: 47 years old female presented by ambulance with chief complaint of palpitation and chest pain. The symptoms started this morning 3 hours ago. Patient has multiple medical problem which include hypertension anxiety disorder bipolar disorder obesity. MD complaint: heart racing and palpitations Onset (ago): hour(s) Time: 08:49 Duration: intermittent Severity: moderate Context: occurred during rest Associated symptoms: chest pain Related Data Home Medications Medication Instructions Recorded Confirmed carbamazepine 200 mg tablet 200 mg PO QID 01/26/20 07/09/22 clonazepam 1 mg tablet 1 mg PO TID PRN Skin Cleansing 01/26/20 07/09/22 fluoxetine 20 mg capsule 40 mg PO DAILY 01/26/20 07/09/22 betamethasone dipropionate 0.05 % topical itch 10/27/20 05/27/22 lotion ibuprofen 800 mg tablet 800 mg PO BID PRN Pain 06/04/21 07/09/22 pantoprazole 40 mg tablet,delayed 40 mg PO BID 06/04/21 07/09/22 release calcium carbonate 600 mg calcium 600 mg PO BID 08/31/21 07/09/22 (1,500 mg) tablet amlodipine 10 mg tablet 10 mg PO DAILY 04/30/22 07/09/22 aripiprazole 15 mg tablet 7.5 mg PO DAILY 04/30/22 07/09/22 atorvastatin 10 mg tablet 10 mg PO DAILY 05/01/22 07/09/22 Previous Rx's Medication Instructions Recorded aspirin 81 mg tablet,delayed 81 mg PO DAILY #90 tabs 06/26/20 release cholecalciferol (vitamin D3) 25 25 mcg PO DAILY 90 days #90 caps 09/15/20 mcg (1,000 unit) capsule atenolol 25 mg tablet 25 mg PO DAILY 90 days #90 tabs 11/03/20 ketoconazole 2 % topical cream 1 appl topical DAILY 3 days #60 12/07/20 grams acetaminophen 500 mg tablet 500 mg PO Q6H PRN fever or pain 03/08/22 (Tylenol Extra Strength) #14 tabs vitamin B12 500 mcg-folic acid 400 1 tab PO DAILY #30 tabs 05/06/22 mcg tablet thiamine HCl (vitamin B1) 100 mg 100 mg PO DAILY #30 tabs 05/13/22 tablet mirabegron 50 mg tablet,extended 50 mg PO DAILY 90 days #90 tabs 05/27/22 release 24 hr (Myrbetriq) oxybutynin chloride 15 mg 15 mg PO DAILY 90 days #90 tabs 05/27/22 tablet,extended release 24 hr tramadol 50 mg tablet 50 mg PO Q6H PRN pain (scale score 07/22/22 1-3) #8 tabs Allergies Allergy/AdvReac Type Severity Reaction Status Date / Time Penicillins Allergy Severe ITCHING/SWE Verified 08/13/22 11:52 LLING doxycycline [DOXYCYCLINE] Allergy Intermediate SEVERE Verified 08/13/22 11:52 ITCHING, pruritis sulfamethoxazole [Bactrim] Allergy Unknown Unknown Verified 08/13/22 11:52 Sulfa (Sulfonamide Allergy Chest Pain Verified 08/13/22 11:52 Antibiotics) Review of Systems Constitutional: Constitutional: Reports no additional constitutional complaints ENT: Reports system reviewed and no additional complaints, except as documented Cardiovascular: Cardiovascular: Reports chest pain and Reports rapid heart rate Respiratory: Respiratory: Reports no additional respiratory complaints PMFSH Past Medical History Attestation statement: The following information was validated with the patient. Medical History Abnormal CT of the abdomen Arthritis Back pain Bipolar II disorder Coronary artery disease Dyspnea Fibromyalgia GERD (gastroesophageal reflux disease) History of [place] (myocardial infarction) History of urinary incontinence Hospital discharge follow-up Hyperkalemia Hyperlipidemia IBS (irritable bowel syndrome) Insomnia Lab test negative for COVID-19 virus Morbid obesity Obesity Optic neuritis Overactive bladder Partial bowel obstruction Rectal prolapse Sleep apnea Small bowel obstruction TIA (transient ischemic attack) Surgical History H/O cystoscopy (06/08/19) History of carpal tunnel release of both wrists History of pubovaginal sling (10/19/19) History of surgery History of total left knee replacement (TKR) (11/2016) History of total right knee replacement (06/2016) Hx of thumb surgery Family History Family History Mother Afib Heart disease Father Cardiac failure Respiratory failure Brother Afib Brother Hypertension Brother Hypertension Son No problems noted. Social History Social History Household Members: Family Housing: House Alcohol intake: current Alcohol intake frequency: holidays/special occasions only Patient Tobacco Use Status: Former Tobacco user Tobacco use type: Cigarette Cigarette Packs Per Day: 1 Cigarettes Per Day: 20 Years Smoked: 20 Second Hand Smoke Exposure: No Substance Use Type: Marijuana Advance Directives: No Advance Directives Information Provided: Yes service: No Current occupational status: unemployed Physical Exam Vital Signs: Vital Signs: Last Vital Signs Temp 98.2 F 12/23/22 13:28 Pulse 93 12/23/22 13:28 Resp 16 12/23/22 13:28 BP 118/79 12/23/22 13:28 Pulse Ox 98 12/23/22 13:28 O2 Del Method Room Air 12/23/22 13:28 BMI result Body Mass Index 38.6 Const: General: cooperative Nutritional Appearance: well nourished Orientation/consciousness: patient oriented x3 Limitations: no limitations HEENT: Head: Yes normal to inspection Ears: hearing grossly normal bilaterally General nose exam: Normal external nose present Mouth: Normal oral and palatal mucosa present Throat: Yes posterior oropharynx normal Neck: Neck: Yes normal visual inspection Chest: Chest palpation & inspection: normal inspection of the chest Resp: Effort & Inspection: normal respiratory effort Auscultation: clear to auscultation bilaterally Cardio: Jugular venous distension: no JVD Rate: regular rate Rhythm: regular rhythm GI: Inspection: Yes normal to inspection Palpation (GI): Soft to palpation, not firm and nontender Percussion: Yes normal to percussion Auscultation: normal bowel sounds Skin: General skin exam: no rashes or lesions noted Lesions: no lesions Rashes: no rashes Neuro: General: patient oriented x3 Cranial nerves: Yes CN's II-XII intact bilaterally Cognition (Neuro): normal cognition Gait exam (Neuro): Normal gait present Extrem: General: Yes normal to inspection and Yes full ROM Course Reevaluation(s) Reevaluation #1: Re-examined before discharge remains stable normal blood pressure no tachycardia Medications Administered Discontinued Medications Generic Name Dose Route Start Last Admin Trade Name Freq PRN Reason Stop Dose Admin Sodium Chloride 1,000 mls @ 999 mls/hr 12/23/22 11:00 12/23/22 12:03 Ns IVCONT 12/23/22 12:00 Infused .Q1H1M LAURY Infusion Lorazepam 1 mg 12/23/22 08:46 12/23/22 09:03 Lorazepam 2 Mg/Ml Vial IVPUSH 12/23/22 08:47 1 mg ONCE ONE Administration Lorazepam 1 mg 12/23/22 10:54 12/23/22 11:02 Lorazepam 2 Mg/Ml Vial IVPUSH 12/23/22 10:55 1 mg ONCE ONE Administration Medical Decision Making Medical Decision Making [facility] Narrative: Patient presented with a chief complaint of palpitation and chest pain will obtain labs, chest x-ray and reassess @2:38 PM patient feeling better delta tropi flat, she was served in the morning for more than 4 hours she remained in sinus rhythm with no arrhythmia seen Differential Diagnosis Differential Diagnoses: The differential diagnosis associated with the presentation includes SVT /atrial fibrillation/[place] Admission/Observation Consideration of admission/observation: Escalation of care including admission/observation considered Lab Data [facility] Lab Attestation statement: I reviewed the patient's lab results. 12/23/22 08:57 12/23/22 08:57 Labs: Lab Results 12/23/22 12/23/22 12/23/22 Range/Units 08:57 08:57 08:57 WBC 10.6 (4.8-10.8) X10*3/uL RBC 5.29 (4.20-5.50) X10*6/uL Hgb 13.2 (12.0-16.0) g/dl Hct 41.2 (37.0-47.0) % MCV 77.9 L (80.0-98.0) fL MCH 25.0 L (27.0-33.0) pg MCHC 32.0 (31.0-35.0) g/dl RDW 15.5 (11.0-16.0) % Plt Count 325 (160-400) X10*3/uL MPV 11.8 (9.4-12.3) fL Immature Gran % (Auto) 0.4 (0.0-0.4) % Neut % (Auto) 83.4 H (45-73) % Lymph % (Auto) 11.6 L (20-40) % Rankin % (Auto) 4.2 (2-11) % Eos % (Auto) 0.1 (0-4) % Baso % (Auto) 0.3 (0-2) % Lymph # (Auto) 1.2 (1.2-4.9) X10*3/uL Rankin # (Auto) 0.5 (0.1-1.2) X10*3/uL Eos # (Auto) 0.0 (0.0-0.4) X10*3/uL Baso # (Auto) 0.0 (0.0-0.2) X10*3/uL Abs Immat Gran (auto) 0.04 H (0.00-0.03) X10*3/uL Absolute Neuts (auto) 8.9 H (2.0-8.3) x10*3/uL Absolute Nucleated RBC 0.000 (0.0-0.012) X10*3/uL Nucleated RBC % (auto) 0.0 (0.0-0.2) /100WBC Sodium 139 (135-145) mmol/L Potassium 3.7 (3.3-5.1) mmol/L Chloride 107 (96-108) mmol/L Carbon Dioxide 19 L (22-29) mmol/L Anion Gap 17 (12-20) BUN 15 (9-16) mg/dL Creatinine 0.79 (0.5-1.4) mg/dL Estim Creat Clear Calc 97.0 Estimated GFR > 60 Random Glucose 140 H (60-115) mg/dL Calcium 9.5 (8.4-10.2) mg/dL Total Bilirubin 0.5 (0.0-1.0) mg/dL AST 13 (5-31) U/L ALT 10 (0-31) U/L Alkaline Phosphatase 75 (39-117) U/L Troponin I High Sens < 2.7 (<3.5-17.0) ng/L Total Protein 7.1 (6.5-8.0) g/dL Albumin 4.2 (3.5-5.0) g/dL Lipase (8-78) U/L Urine Opiates Screen (Not Detect) Urine Fentanyl Screen (Not Detect) Ur Barbiturates Screen (Not Detect) Ur Phencyclidine Scrn (Not Detect) Ur Amphetamines Screen (Not Detect) U Benzodiazepines Scrn (Not Detect) Urine Cocaine Screen (Not Detect) U Marijuana (THC) Screen (Not Detect) 12/23/22 12/23/22 12/23/22 Range/Units 10:48 10:59 11:03 WBC (4.8-10.8) X10*3/uL RBC (4.20-5.50) X10*6/uL Hgb (12.0-16.0) g/dl Hct (37.0-47.0) % MCV (80.0-98.0) fL MCH (27.0-33.0) pg MCHC (31.0-35.0) g/dl RDW (11.0-16.0) % Plt Count (160-400) X10*3/uL MPV (9.4-12.3) fL Immature Gran % (Auto) (0.0-0.4) % Neut % (Auto) (45-73) % Lymph % (Auto) (20-40) % Rankin % (Auto) (2-11) % Eos % (Auto) (0-4) % Baso % (Auto) (0-2) % Lymph # (Auto) (1.2-4.9) X10*3/uL Rankin # (Auto) (0.1-1.2) X10*3/uL Eos # (Auto) (0.0-0.4) X10*3/uL Baso # (Auto) (0.0-0.2) X10*3/uL Abs Immat Gran (auto) (0.00-0.03) X10*3/uL Absolute Neuts (auto) (2.0-8.3) x10*3/uL Absolute Nucleated RBC (0.0-0.012) X10*3/uL Nucleated RBC % (auto) (0.0-0.2) /100WBC Sodium (135-145) mmol/L Potassium (3.3-5.1) mmol/L Chloride (96-108) mmol/L Carbon Dioxide (22-29) mmol/L Anion Gap (12-20) BUN (9-16) mg/dL Creatinine (0.5-1.4) mg/dL Estim Creat Clear Calc Estimated GFR Random Glucose (60-115) mg/dL Calcium (8.4-10.2) mg/dL Total Bilirubin (0.0-1.0) mg/dL AST (5-31) U/L ALT (0-31) U/L Alkaline Phosphatase (39-117) U/L Troponin I High Sens < 2.7 (<3.5-17.0) ng/L Total Protein (6.5-8.0) g/dL Albumin (3.5-5.0) g/dL Lipase 9 (8-78) U/L Urine Opiates Screen Not Detected (Not Detect) Urine Fentanyl Screen Not Detected (Not Detect) Ur Barbiturates Screen Not Detected (Not Detect) Ur Phencyclidine Scrn Not Detected (Not Detect) Ur Amphetamines Screen Not Detected (Not Detect) U Benzodiazepines Scrn Not Detected (Not Detect) Urine Cocaine Screen Not Detected (Not Detect) U Marijuana (THC) Screen POSITIVE H (Not Detect) Independent Interpretation I performed an independent interpretation of an: EKG (Normal sinus rhythm rate [address]-T changes) and Plain X-Ray Interpretation: Normal chest x-ray Radiology Impression Discussion of test interpretation with radiology: I have reviewed the radiologist's reading. Radiologist Impression: EXAMINATION: XR CHEST CLINICAL INFORMATION: Chest pain COMPARISON: 06/26/2022 TECHNIQUE: Frontal view of the chest was obtained. FINDINGS: No significant abnormality is noted involving the heart, lungs, mediastinum. There is healed fracture deformity of multiple ribs bilaterally of indeterminate age. XR/XR chest 1V IMPRESSION: No active cardiopulmonary disease ? Dictated By: Santiago Hernández MD Signed By: <Electronically signed by Santiago Hernández MD in OV> 12/23/22 0935 Chronic Conditions Patient?s care impacted by: Hypertension Discharge Plan Discharge Clinical Impression: Heart palpitations Patient Disposition: Home, Self-Care Instructions: Heart Palpitations (DC) Additional Instructions: Follow-up with your primary care physician, also follow up with Cardiology return if you worse Prescriptions: No Action aspirin 81 mg tablet,delayed release (DR/EC) 81 mg PO DAILY Qty: 90 3RF atenolol 25 mg tablet 25 mg PO DAILY 90 Days Qty: 90 0RF ketoconazole 2 % cream 1 appl topical DAILY 3 Days Qty: 60 0RF vitamin F98-kutat acid 500-400 mcg tablet 1 tab PO DAILY Qty: 30 2RF Rx Instructions: administer with a meal thiamine HCl (vitamin B1) 100 mg tablet 100 mg PO DAILY Qty: 30 2RF oxybutynin chloride 15 mg tablet extended release 24hr 15 mg PO DAILY 90 Days Qty: 90 1RF tramadol 50 mg tablet 50 mg PO Q6H PRN (Reason: pain (scale score 1-3)) Qty: 8 0RF acetaminophen [Tylenol Extra Strength] 500 mg tablet 500 mg PO Q6H PRN (Reason: fever or pain) Qty: 14 0RF betamethasone dipropionate 0.05 % lotion topical cholecalciferol (vitamin D3) 25 mcg (1,000 unit) capsule 25 mcg PO DAILY 90 Days Qty: 90 0RF clonazepam 1 mg tablet 1 mg PO TID PRN (Reason: Skin Cleansing) fluoxetine 20 mg capsule 40 mg PO DAILY carbamazepine 200 mg tablet 200 mg PO QID amlodipine 10 mg tablet 10 mg PO DAILY pantoprazole 40 mg tablet,delayed release (DR/EC) 40 mg PO BID ibuprofen 800 mg tablet 800 mg PO BID PRN (Reason: Pain) calcium carbonate 600 mg calcium (1,500 mg) tablet 600 mg PO BID aripiprazole 15 mg tablet 7.5 mg PO DAILY Myrbetriq 50 mg tablet extended release 24 hr 50 mg PO DAILY 90 Days Qty: 90 1RF atorvastatin 10 mg tablet 10 mg PO DAILY Referrals: Mery Torre MD [Primary Care Provider] - 1 day Interventions: ED Discharge Assessment Last Done: 12/23/22 14:29 Discharge Date/Time: 12/23/22 14:48
[2022-12-23 09:02] LABS: MANUAL DIFF FLAG NO
[2022-12-23] MEDS: LORazepam 2 MG/ML VIAL 1 MG IVPUSH ×2 (09:03→11:02)
[2022-12-23 09:10] LABS: Basophils Percent Auto 0.3 % (0-2); Eosinophils Percent Auto 0.1 % (0-4); Hematocrit 41.2 % (37.0-47.0); Hemoglobin 13.2 g/dl (12.0-16.0); Imm Gran Abs Auto 0.04 X10*3/uL (0.00-0.03); Imm Gran Pct Auto 0.4 % (0.0-0.4); Lymphocytes Absolute Auto 1.2 X10*3/uL (1.2-4.9); Lymphocytes Percent Auto 11.6 % (20-40); Mean Corpuscular Volume 77.9 fL (80.0-98.0); Mean Platelet Volume 11.8 fL (9.4-12.3); Monocytes Absolute Auto 0.5 X10*3/uL (0.1-1.2); Monocytes Percent Auto 4.2 % (2-11); Neutrophils Absolute Auto 8.9 x10*3/uL (2.0-8.3); Neutrophils Percent Auto 83.4 % (45-73); Platelet Count 325 X10*3/uL (160-400); Red Blood Count 5.29 X10*6/uL (4.20-5.50); Red Cell Distribution Width 15.5 % (11.0-16.0); White Blood Count 10.6 X10*3/uL (4.8-10.8)
--- NOTE | 2022-12-23 09:18 | MHC.EDTECH ---
EKG documented at 1006 incorrectly. EKG done AT 0906 .
[2022-12-23 09:27] LABS: Alanine Aminotransferase 10 U/L (0-31); Albumin Level 4.2 g/dL (3.5-5.0); Alkaline Phosphatase 75 U/L (39-117); Anion Gap 17 (12-20); Aspartate Amino Transferase 13 U/L (5-31); Bilirubin Total 0.5 mg/dL (0.0-1.0); Blood Urea Nitrogen 15 mg/dL (9-16); Calcium 9.5 mg/dL (8.4-10.2); Carbon Dioxide 19 mmol/L (22-29); Chloride 107 mmol/L (96-108); Estimated Glomerular Filt Rate > 60; Glucose Random 140 mg/dL (60-115); Potassium 3.7 mmol/L (3.3-5.1); Sodium 139 mmol/L (135-145); Total Protein 7.1 g/dL (6.5-8.0)
[2022-12-23 09:43] LABS: Troponin-I High Sensitivity < 2.7 ng/L (<3.5-17.0)
[2022-12-23] MEDS: 0.9 % Sodium Chloride 1,000 ML 999 ML IVCONT (11:02)
[2022-12-23 11:23] LABS: Amphetamine Screen Urine Not Detected (Not Detect); Barbiturates, Urine Not Detected (Not Detect); Benzodiazepines Screen Urine Not Detected (Not Detect); Cannabinoid Screen Urine POSITIVE (Not Detect); Cocaine Screen Urine Not Detected (Not Detect); Fentanyl, urine Not Detected (Not Detect); Opiate Screen Urine Not Detected (Not Detect); Phencyclidine Screen Urine Not Detected (Not Detect)
[2022-12-23 11:28] LABS: Lipase 9 U/L (8-78)
[2022-12-23 12:32] VITALS: BP 103/61; PULSE 84; RESP 14; TEMP 36.8; O2SAT 95
[2022-12-23 13:24] LABS: Troponin-I High Sensitivity < 2.7 ng/L (<3.5-17.0)
[2022-12-23 13:28] VITALS: BP 118/79; PULSE 93; RESP 16; TEMP 36.8; O2SAT 98
== END 2022-12-23 14:48 | disposition home or self-care (01) ==
PROVIDERS: Emergency Provider Emergency Medicine; PCP Student in an Organized Health Care Education/Training Program
DX: R00.2 Palpitations (principal); I10 Essential (primary) hypertension; E78.5 Hyperlipidemia, unspecified; F41.9 Anxiety disorder, unspecified; F12.90 Cannabis use, unspecified, uncomplicated; E66.9 Obesity, unspecified; Z68.38 Body mass index [BMI] 38.0-38.9, adult; Z79.899 Other long term (current) drug therapy; Z79.82 Long term (current) use of aspirin; Z87.891 Personal history of nicotine dependence; Z86.73 Personal history of transient ischemic attack (TIA), and cerebral infarction without residual deficits
CPT/HCPCS: 36415; 71045; 80053; 80307; 83690; 84484; 85025; 93005; 96361; 96374; 96376; 99284; 99285; J2060

== ENCOUNTER 2022-12-25 07:59 | Outpatient (REF) | payer OTHER, SELFPAY ==
[2022-12-25 10:38] LABS: Estimated Average Glucose 108 mg/dL; Hemoglobin A1c % 5.4 % (<6.0)
[2022-12-25 11:05] LABS: Glucose Fasting 113 mg/dL (60-99)
[2022-12-25 11:32] LABS: TSH reflex Free T4 0.33 uIU/mL (0.32-4.0)
== END 2022-12-25 08:00 | disposition home or self-care (01) ==
LOC: HO.LAB 07:59
PROVIDERS: Absent Provider Internal Medicine; PCP Student in an Organized Health Care Education/Training Program; Referring Provider Student in an Organized Health Care Education/Training Program; Visit Provider Internal Medicine Cardiovascular Disease
DX: R00.2 Palpitations (principal); I10 Essential (primary) hypertension; Z79.899 Other long term (current) drug therapy
CPT/HCPCS: 36415; 82947; 83036; 84443; 99202

== ENCOUNTER 2022-12-25 07:59 | Outpatient (AMB) | payer OTHER, SELFPAY ==
[2022-12-25 08:25] VITALS: BP 134/82; PULSE 88; BMI 38.7
--- NOTE | 2022-12-25 08:25 | MHC.OFFVIS ---
Intake Vital Signs 12/25/22 08:25 Height 5 ft 2 in Weight 211 lb 10.3 oz BMI 38.7 BP 134/82 Blood Pressure Location Lt brachial Position Sitting Pulse 88 Intake Visit Reasons: NPV/HX of IL/S. Nicho Intake Note: New patient was in the ED for c/o chest pain has been having palpitations on right side of chest Cold Header Required: No Allergies Penicillins Allergy (Severe, Verified 08/13/22 11:52) ITCHING/SWELLING doxycycline [DOXYCYCLINE] Allergy (Intermediate, Verified 08/13/22 11:52) SEVERE ITCHING, pruritis sulfamethoxazole [Bactrim] Allergy (Unknown, Verified 08/13/22 11:52) Unknown Sulfa (Sulfonamide Antibiotics) Allergy (Verified 08/13/22 11:52) Chest Pain Medication List - Last Reconciled 12/25/22 by Guicho Kinsey MD amlodipine 10 mg PO DAILY aripiprazole 7.5 mg PO DAILY aspirin 81 mg PO DAILY atenolol 25 mg PO DAILY 90 days atorvastatin 10 mg PO DAILY calcium carbonate 600 mg PO BID carbamazepine 200 mg PO QID cetirizine (Zyrtec) 10 mg PO DAILY PRN cholecalciferol (vitamin D3) 25 mcg PO DAILY 90 days clonazepam 1 mg PO TID PRN fluoxetine 40 mg PO DAILY folic acid 0.4 mg PO DAILY mirabegron ER (Myrbetriq) 50 mg PO DAILY 90 days omega [id number]-fish oil 1,200 (144-216) mg (Fish Oil) caps PO oxybutynin chloride ER 15 mg PO DAILY 90 days pantoprazole 40 mg PO BID thiamine HCl (vitamin B1) 100 mg PO DAILY thiamine HCl (vitamin B1) 100 mg PO DAILY vitamin G97-shplp acid 500-400 mcg 1 tab PO DAILY HPI HPI Comments History of Present Illness Details Niya was referred here for symptoms of palpitations. She is extremely anxious 47-year-old woman with prior history of obesity, hypertension, bladder issues. She said about 5 years ago she had episode of when she had lost consciousness at come to the emergency room. She says she was on the floor for many hours. She was told that she had myocardial infarction. However I reviewed the records from [facility] from 5 years ago and there is no elevation of troponins although she says that she was told that her cardiac markers were elevated. It was felt that her syncope was mostly vasovagal related to a bladder issue at that point time. She had workup done at that time which was within normal limits. Since then she has been treated for hypertension and currently on amlodipine losartan as per her, although not on the med list as well as atenolol. She says at home was reduced to 25 mg daily due to fluctuating heart rate. She has heart rate monitor on her smart wrist device and looking at that she gets very concern. She says occasionally heart rate drops into the 40s. At other times with minimal activity heart rate is very elevated in the 100-120 range. She recently had come to the emergency room because of symptoms of palpitations. At that time she was noted to be extremely anxious in ED and was given Ativan and was noted to have elevated heart rate at rest including elevated blood pressure. She has long-term issues with significant anxiety as well as prior drug use. She is currently on clonazepam [id number] as well as other psychoactive medications. He is extremely concerned about underlying heart issues she intermittently still gets symptoms of palpitations. Denies any clear symptoms of exertional chest pain or shortness of breath. She had a stress test as past April which was negative for myocardial ischemia. [facility] Medical History Abnormal CT of the abdomen Arthritis Back pain Bipolar II disorder Coronary artery disease Dyspnea Fibromyalgia GERD (gastroesophageal reflux disease) History of [place] (myocardial infarction) History of urinary incontinence Hospital discharge follow-up Hyperkalemia Hyperlipidemia IBS (irritable bowel syndrome) Insomnia Lab test negative for COVID-19 virus Morbid obesity Obesity Optic neuritis Overactive bladder Partial bowel obstruction Rectal prolapse Sleep apnea Small bowel obstruction TIA (transient ischemic attack) Surgical History H/O cystoscopy (06/08/19) History of carpal tunnel release of both wrists History of pubovaginal sling (10/19/19) History of surgery History of total left knee replacement (TKR) (11/2016) History of total right knee replacement (06/2016) Hx of thumb surgery Family History Mother Afib Heart disease Father Cardiac failure Respiratory failure Brother Afib Brother Hypertension Brother Hypertension Son No problems noted. Social History Household Members: Family Housing: House Alcohol intake: current Alcohol intake frequency: holidays/special occasions only Patient Tobacco Use Status: Former Tobacco user Tobacco use type: Cigarette Cigarette Packs Per Day: 1 Cigarettes Per Day: 20 Years Smoked: 20 Second Hand Smoke Exposure: No Substance Use Type: Marijuana service: No Current occupational status: unemployed Review of Systems Const Denies chills, Denies daytime sleepiness, Denies fatigue, Denies fever(s), Denies frequent falls, Denies poor appetite, Denies snoring, Denies stops breathing during sleep, Denies weakness, Denies weight gain and Denies weight loss Eyes Denies loss of vision ENT Denies dizziness and Denies hearing loss Card Denies chest pain, Denies claudication, Denies leg edema, Denies lightheadedness, Denies palpitations, Denies dyspnea, Denies dyspnea on exertion and Denies orthopnea Resp Denies cough, Denies excessive phlegm production, Denies dyspnea, Denies dyspnea on exertion, Denies snoring and Denies wheezing GI Denies abdominal pain, Denies hematochezia, Denies change in bowel habits, Denies nausea and Denies vomiting Denies urinary frequency and Denies dysuria Musc Denies arthralgias, Denies muscle weakness, Denies numbness and Denies other (frequent falls) Skin/Breast Denies nail changes and Denies rash Neuro Denies Abnormal speech present, Denies dizziness, Denies frequent falls, Denies loss of vision, Denies memory loss, Denies numbness and Denies weakness Psych Denies depression and Denies memory loss Endo Denies fatigue and Denies palpitations Omar/Lymph Reports easy bruising and Reports other (anemia) Aller/Immun Denies wheezing Physical Exam Vital Signs: Last Vital Signs Pulse 88 12/25/22 08:25 BP 134/82 12/25/22 08:25 BMI result Body Mass Index 38.7 Const General: cooperative, comfortable, alert, awake and anxious Nutritional Appearance: obese Orientation/consciousness: patient oriented x3 Limitations: no limitations HEENT Head: Yes normocephalic and Yes atraumatic Neck Neck: Yes trachea midline, Yes supple and Yes no JVD Resp Effort & Inspection: normal respiratory effort Auscultation: clear to auscultation bilaterally Cardio Jugular venous distension: no JVD Palpation: normal PMI Rate: regular rate Rhythm: regular rhythm Heart sounds: S1 normal heart sound present, S2 normal heart sound present, no click, no gallops, no murmurs and no rubs GI Inspection: Yes obesity Auscultation: normal bowel sounds Skin General skin exam: no rashes or lesions noted Neuro General: patient oriented x3 and no focal motor deficits Speech: No Abnormal speech present Extrem General: Yes no clubbing, cyanosis or edema Assessment & Plan Assessment & Plan (1) Heart palpitations: Code(s): R00.2 - Palpitations Plan: Patient with symptoms of heart palpitations could be related to extra systoles. Also anxiety could play a significant role in this. Her variable heart rate a most likely driven by anxiety and effect of atenolol therapy. I think with her anxiety she has significant sinus tachycardia with minimal activity she has sinus tachycardia, most likely due to deconditioning. Will obtain Holter monitor to further assess for the same. This will be scheduled in near future. Also suggest echocardiogram to well for cardiac structure and function including evidence of hypertensive heart disease any with if LV systolic function. Further treatment based on the finding. If she has significant bradycardia as she has noted on her smart watch will taper and discontinue atenolol therapy. Further treatment based on the findings. (2) Hypertension, essential: Code(s): I10 - Essential (primary) hypertension Plan: Hypertension with him with intermittent elevated blood pressure most likely driven by anxiety/panic disorder. This needs to be corrected for her to better control her hemodynamic response to anxiety/panic attack. This is being followed by psychiatry team. Currently a blood pressure is well optimized on current therapy. She supposedly also taking losartan, will confirm with pharmacy about the same. She needs to participate in Behavioral therapy with stress mitigation strategies with either breathing techniques or meditation. Will follow up in the clinic in 6 weeks time, sooner p.r.n.. Thank you for allowing me to partake in the care Coding Level of Care Code New Pt Level 4 (07845) Diagnoses Heart palpitations R00.2 Hypertension, essential I10
== END 2022-12-25 09:04 | disposition home or self-care (01) ==
PROVIDERS: PCP Student in an Organized Health Care Education/Training Program; Referring Provider Student in an Organized Health Care Education/Training Program; Visit Provider Internal Medicine Cardiovascular Disease
DX: R00.2 Palpitations (principal); I10 Essential (primary) hypertension
CPT/HCPCS: 99204

== ENCOUNTER → 2023-01-15 09:57 | Outpatient (REF) | payer OTHER, SELFPAY ==
--- NOTE | 2023-01-15 10:02 | CA_ITS ---
Transthoracic Echocardiogram Patient (Last, First, Middle): Niya Haji, Gender: Female Date of : 1975 Age: 47 Procedure Date: 01/15/2023 Procedure Type: Transthoracic Echocardiogram Location: OP Height: 160.02 cm Weight: 91.17 kg BSA: 1.94 m2 Heart Rate: bpm BP: 110 / 70 mmHg Metallographic Technician: TO Referring MD: Guicho Kinsey MD Symptoms: I10 - Essential (primary) hypertension Study Quality: Adequate ECG Rhythm: Sinus Conclusions: - The left ventricular systolic function is normal. The calculated ejection fraction is 68% by biplane method. - No obvious valvular pathology seen on this study. Findings Left Ventricle Normal left ventricular cavity size. There is normal left ventricular wall thickness. The left ventricular systolic function is normal. The calculated ejection fraction is 68% by biplane method. There is no evidence of regional wall motion abnormalities. Diastolic function is normal for age. LV peak GLS -18.9%. Right Ventricle Normal right ventricular cavity size and systolic function. Atria Both atria are normal in size. Aortic Valve There is a normal trileaflet aortic valve. There is no aortic valve stenosis. There is no aortic valve regurgitation. Mitral Valve The mitral valve appears normal. There is no mitral valve regurgitation. There is no mitral valve stenosis. Pulmonic Valve The pulmonic valve is likely normal. Tricuspid Valve Normal tricuspid valve structure. There is no tricuspid valve regurgitation. Tricuspid regurgitation envelope is inadequate for calculation of right ventricular systolic pressure. Great Vessels The asc aorta is normal in size. Venous The inferior vena cava is normal in size and collapses greater than 50% with inspiration. Pericardium/Pleural There is no evidence of pericardial effusion. Prior Study Comparison No significant change compared to prior study dated: 05/14/2017. Recommendations, Care & Conclusions No obvious valvular pathology seen on this study. Measurements 2D Linear Measurements IVSd: 0.80 0.6-0.9/0.6-1.0 cm LVIDd: 5.10 3.9-5.3/4.2-5.9 cm LVIDd Index: 2.63 2.4-3.2/2.2-3.1 cm/m2 LVIDs: 2.90 2.0-3.6 cm LVPWd: 0.80 0.7-1.1 cm LA Diam: 3.80 2.7-3.8/3.0-4.0 cm LAIDs Index: 1.96 1.5-2.3 cm/m2 LV Mass: 174.84 67-162/88-224 g LV Mass Index: 90.12 43-95/49-115 g/m2 LVOT Diam: 2.10 3.0+(-)1.3 cm 2D Systolic Function EF 4C: 69.50 >55% EF 2C: 66.40 >55% EF BiP: 67.70 >55% Mitral Valve MV Pk E: 0.58 MV PK A: 0.48 MV Decel Time: 131.00 E/A: 1.20 E'Lateral: 13.80 E'Medial: 8.92 E/E' Med: 6.50 E/E' Lat: 4.20 PHT: 38.00 MVA PHT: 5.79 Decel [place]: 4.42 Aortic Valve AoV Pk Umer: 1.48 AoV Mn Umer: 1.01 AoV VTI: 0.28 AoV Pk Grad: 9.00 Aov Mn Grad: 5.00 BRIDGET Cont.VTI: 2.40 LVOT LVOT Pk Umer: 0.95 LVOT Mn Umer: 0.63 LVOT VTI: 0.20 LVOT Pk Grad: 4.00 LVOT Mn Grad: 2.00 LVOT Diam: 2.10 LVOT Area: 3.46 Diastolic Function MV Pk E: 0.58 MV Pk A: 0.48 E/A: 1.20 E'Medial: 8.92 E/E' Med: 6.50 E' Laterial: 13.80 E/E' Lat: 4.20 Right Ventricle TAPSE (mm): 25.20 TVS' Umer: 13.90 Tricuspid Valve RA Press: 3.00 Great Vessels Aorta Sinus of Valsalva: 3.20 2.0-3.5 cm Ao Asc: 3.00 2.1-3.4 cm Updated in Other Vendor System with Status of Final Jason Capone MD electronically signed on 01/16/2023 10:12:29 AM with status of Final
--- NOTE | 2023-01-15 10:02 | HM_ITS ---
Conclusion: 1. Patient was monitored for total period of 2 days 2. Baseline was normal sinus rhythm with average heart rate of 79 beats per minute 3. No significant pauses noted 4. Rare PACs noted 5. Patient reported total of 25 events with correlating symptoms of fluttering, palpitations, upper chest discomfort, pulsating in the chest all correlating with sinus rhythm MTDD
== END ==
LOC: HO.CARD 09:57
PROVIDERS: PCP Student in an Organized Health Care Education/Training Program; Visit Provider Internal Medicine Cardiovascular Disease
DX: I10 Essential (primary) hypertension (principal); R00.2 Palpitations
CPT/HCPCS: 93225; 93306; 93356

== ENCOUNTER → 2023-01-15 10:02 | Outpatient (BNV) | payer OTHER, SELFPAY | PROVIDERS: PCP Student in an Organized Health Care Education/Training Program; Visit Provider Internal Medicine | DX: I49.1 Atrial premature depolarization (principal) | CPT/HCPCS: 93227; 93306 ==

== ENCOUNTER 2023-01-24 08:18 | Outpatient (AMB) | payer OTHER, SELFPAY ==
[2023-01-24 08:24] VITALS: BP 114/72; PULSE 85; BMI 36.7
--- NOTE | 2023-01-24 08:24 | A.OFFVIS_ITS ---
Intake Vital Signs 01/24/23 08:24 Height 5 ft 2 in Weight 200 lb 9.93 oz BMI 36.7 BP 114/72 Blood Pressure Location Lt brachial Position Sitting Pulse 85 Pulse Source Pulse Oximeter Intake Visit Reasons: 1 mth f/up holter Intake Note: 1 month f/u holter Wood Hacker Required: No Allergies Penicillins Allergy (Severe, Verified 01/24/23 08:33) ITCHING/SWELLING doxycycline [DOXYCYCLINE] Allergy (Intermediate, Verified 01/24/23 08:33) SEVERE ITCHING, pruritis sulfamethoxazole [Bactrim] Allergy (Unknown, Verified 01/24/23 08:33) Unknown Sulfa (Sulfonamide Antibiotics) Allergy (Verified 01/24/23 08:33) Chest Pain Medication List - Last Reconciled 01/24/23 by JOSEP Calvert amlodipine 10 mg PO DAILY aripiprazole 7.5 mg PO DAILY aspirin 81 mg PO DAILY atenolol 25 mg PO DAILY 90 days atorvastatin 10 mg PO DAILY betamethasone dipropionate 0.05% topical calcium carbonate 600 mg PO BID cetirizine (Zyrtec) 10 mg PO DAILY PRN cholecalciferol (vitamin D3) 25 mcg PO DAILY 90 days clonazepam 1 mg PO TID PRN cyanocobalamin (vitamin B-12) mcg PO fluoxetine 40 mg PO DAILY folic acid 0.4 mg PO DAILY ketoconazole 2% topical omega 3-mcj-nyn-fish oil 1,200 (144-216) mg (Fish Oil) caps PO pantoprazole 40 mg PO BID thiamine HCl (vitamin B1) 100 mg PO DAILY thiamine HCl (vitamin B1) 100 mg PO DAILY tretinoin 0.05% appl topical BEDTIME vitamin Z92-[id number] acid 500-400 mcg 1 tab PO DAILY HPI 1 mth f/up holter HPI Details Niya is a 47-year-old female past medical history of obesity, hypertension, anxiety who is being evaluated for heart palpitations and recently underwent an echocardiogram and Holter monitor. She now presents for follow- up. Today she states that she has been monitoring her blood pressure and heart rate frequently. She brings a note book and has them documented 3-5 times daily. She writes down various symptom she is feeling at that time. She feels a mild pressure in her chest randomly, no clear exertional symptoms. She does notice some shortness of breath if she over exerts. She does not do any routine exercise. No presyncope, syncope, falls. She does feel lightheaded at times if she moves quickly. No PND, orthopnea or edema. Takes her meds as directed. Uses a smart watch to monitor her steps and vital signs. She tries to walk frequently. Expressing much anxiety and concern over various physical complaints. [facility] Medical History Sleep apnea IBS (irritable bowel syndrome) Insomnia GERD (gastroesophageal reflux disease) Hyperlipidemia TIA (transient ischemic attack) Coronary artery disease Morbid obesity Overactive bladder Partial bowel obstruction Hospital discharge follow-up Abnormal CT of the abdomen Hyperkalemia Small bowel obstruction Lab test negative for COVID-19 virus History of urinary incontinence History of [place] (myocardial infarction) Rectal prolapse Arthritis Bipolar II disorder Back pain Optic neuritis Fibromyalgia Dyspnea Obesity Surgical History History of surgery History of carpal tunnel release of both wrists Hx of thumb surgery History of pubovaginal sling (10/19/19) H/O cystoscopy (06/08/19) History of total right knee replacement (06/2016) History of total left knee replacement (TKR) (11/2016) Family History Mother Afib Heart disease Father Cardiac failure Respiratory failure Brother Afib Brother Hypertension Brother Hypertension Son No problems noted. Social History Household Members: Family Housing: House Alcohol intake: current Alcohol intake frequency: holidays/special occasions only Patient Tobacco Use Status: Former Tobacco user Tobacco use type: Cigarette Cigarette Packs Per Day: 1 Cigarettes Per Day: 20 Years Smoked: 20 Second Hand Smoke Exposure: No Substance Use Type: Marijuana service: No Current occupational status: unemployed Review of Systems Const All systems reviewed & are unremarkable except as noted in HPI and below ENT Denies dizziness Card Reports chest pain, Denies chest pain at rest, Denies chest pain with activity, Denies rapid heart rate, Denies pedal edema, Denies edema, Denies leg edema, Denies lightheadedness, Denies palpitations, Reports dyspnea, Denies dyspnea on exertion and Denies orthopnea Resp Denies cough, Reports dyspnea and Denies dyspnea on exertion GI Denies hematochezia and Denies change in stool character Musc Denies abnormal gait, Denies limited range of motion, Denies muscle cramps, Denies muscle weakness, Denies numbness, Denies radiating pain into limb, Denies stiffness and Denies tingling Neuro Denies abnormal gait, Denies dizziness, Denies numbness and Denies tingling Endo Denies palpitations Physical Exam Vital Signs: BMI result Body Mass Index 36.7 Const General: cooperative, healthy appearing, comfortable and no acute distress Orientation/consciousness: patient oriented x3 Resp Effort & Inspection: normal respiratory effort Auscultation: clear to auscultation bilaterally, no crackles, no rales, no rhonchi and no wheezes Cardio Jugular venous distension: no JVD Rate: regular rate Rhythm: regular rhythm Heart sounds: S1 normal heart sound present, S2 normal heart sound present, no murmurs and no rubs Neuro General: patient oriented x3 Extrem General: Yes normal to inspection and No no pedal edema Psych Appearance: grossly normal Mental Status: mental status grossly normal Speech and movement: Normal speech and movement present Assessment & Plan Assessment & Plan (1) Heart palpitations: Code(s): R00.2 - Palpitations Plan: Patient has reported heart palpitations were she feels strong pounding in her chest. She monitors her pulse rate and is concerned at times that it goes low. She has kept a detailed record on her heart rate blood pressure and activity since her last visit. Records reviewed and no significant abnormalities identified. A Holter monitor was done on 01/15/2023 for 2 days showing sinus rhythm with average heart rate 79, heart rate range 46 to 103, no pauses, rare PACs. Echocardiogram done 01/15/2023 showed EF 68%, no valve abnormalities. Spent time going over these results with her in detail. Offered much reassurance that no significant abnormalities have been identified. Instructed on good hydration, well-balanced diet and routine daily exercise. Suggested she not take her vital signs as they are only causing increased anxiety for her. Cardiology follow-up as needed (2) Hypertension, essential: Code(s): I10 - Essential (primary) hypertension Plan: Well controlled at this time. Home records reviewed and blood pressure typically ranges 110 to 120s systolic. No hypo or hypertension identified. She can continue her current med management for blood pressure control. She will continue to follow with her PCP Coding Level of Care Code Est Pt Level 3 (38923) Diagnoses Heart palpitations R00.2 Hypertension, essential I10 Time Spent (min) 28
== END 2023-01-24 09:22 | disposition home or self-care (01) ==
PROVIDERS: PCP Student in an Organized Health Care Education/Training Program; Visit Provider Nurse Practitioner Family
DX: R00.2 Palpitations (principal); I10 Essential (primary) hypertension
CPT/HCPCS: 99213

== ENCOUNTER → 2023-01-24 08:18 | Outpatient (BNVA) | payer OTHER, SELFPAY | PROVIDERS: PCP Student in an Organized Health Care Education/Training Program; Visit Provider Nurse Practitioner Family | DX: R00.2 Palpitations (principal); I10 Essential (primary) hypertension | CPT/HCPCS: 99212 ==

== ENCOUNTER 2023-02-14 09:29 | Outpatient (AMB) | payer OTHER, SELFPAY ==
--- NOTE | 2023-02-14 09:33 | MHC.OFFVIS ---
Intake Intake Visit Reasons: 6m follow up Intake Note: Patient is present for follow up OAB/interstim Urology Medication: none Blood Thinner: aspirin PVR: 139mls Nurses Superintendent Required: No Accompanied by: Self / Same As Patient Allergies Penicillins Allergy (Severe, Verified 02/16/23 21:20) ITCHING/SWELLING doxycycline [DOXYCYCLINE] Allergy (Intermediate, Verified 02/16/23 21:20) SEVERE ITCHING, pruritis sulfamethoxazole [Bactrim] Allergy (Unknown, Verified 02/16/23 21:20) Unknown Sulfa (Sulfonamide Antibiotics) Allergy (Verified 02/16/23 21:20) Chest Pain Medication List - Last Reconciled 02/16/23 by KATYA Brandon- amlodipine 10 mg PO DAILY aripiprazole 7.5 mg PO DAILY aspirin 81 mg PO DAILY atenolol 25 mg PO DAILY 90 days atorvastatin 10 mg PO DAILY betamethasone dipropionate 0.05% topical betamethasone dipropionate 0.05% 1 appl topical DAILY calcium carbonate 600 mg PO BID cetirizine (Zyrtec) 10 mg PO DAILY PRN cholecalciferol (vitamin D3) 2,000 units PO DAILY clobetasol 0.05% 1 appl topical BID clonazepam 1 mg PO TID PRN cyanocobalamin (vitamin B-12) mcg PO fluoxetine 40 mg PO DAILY folic acid 0.4 mg PO DAILY hydrocortisone 2.5% topical ketoconazole 2% topical losartan 25 mg PO DAILY omega 8-zli-ude-fish oil 1,200 (144-216) mg (Fish Oil) caps PO pantoprazole 40 mg PO BID thiamine HCl (vitamin B1) 100 mg PO DAILY thiamine HCl (vitamin B1) 50mg 2 tabs orally daily; tretinoin 0.05% appl topical BEDTIME HPI HPI Comments History of Present Illness Details Niya is a pleasant 47-year-old female patient of Dr. Torre. She has a past medical history of sleep apnea, IBS, insomnia, GERD, hyperlipidemia, TIA, coronary artery disease, obesity, overactive bladder, partial bowel obstruction, arthritis, rectal prolapse, bipolar, fibromyalgia, and optic neuritis. She presents to the office today for follow-up of her stress incontinence and urinary urgency. Of note, patient underwent InterStim placement with Dr. Anne June of this year. She reports following up with Dr. Anne in July status post InterStim placement and had been doing well however, recently has been experiencing multiple health issues such as increased heart rate, decreased heart rate, and overall generalized abdominal pain. She discusses at length more recently experiencing left-sided upper and lower abdominal pain and is worried. She discusses following up with her PCP and has an upcoming CT scan at [place] on 02/25 for further assessment evaluation. She reports approximately 1 month ago on 01/10 having stopped all urological medications. She also discusses working with [employer] rep Medina for further programming and is on program 7 and has been doing well over the last 2-4 week with the setting. She discusses [place] [facility] [place] Holter monitor noting increased PVCs. She also reports following up with cardiology regarding hypertension. She reports having a 2nd opinion with [facility] coming up. She also discusses continuing to lose weight. She discusses having lost 76 lb with diet and exercising. She currently denies any lower urinary tract symptoms. She does however report very infrequent pain at the site of InterStim. She otherwise denies urinary urgency, urinary frequency, incontinence, nocturia, hematuria, dysuria, foul smelling urine, changes to urinary stream, flank pain, fever, and or chills. She is happy with her current voiding parameters. Urinary urgency Prior prolapse repair with Dr Hannah Eckert Failed conservative therapy medications InterStim previously 08/18 InterStim revision Symptoms controlled with InterStim has discontinued all urological medications (50 mg of Myrbetriq daily, and Oxybutynin 15mg ER) Stress urinary incontinence Previous evaluation with Dr. Hendricks Urethral mesh had been placed by an outside urologist Dr. Hendricks had removed this mesh uses become infected and replace this with abdominal fascia [facility] Medical History Sleep apnea IBS (irritable bowel syndrome) Insomnia GERD (gastroesophageal reflux disease) Hyperlipidemia TIA (transient ischemic attack) Coronary artery disease Morbid obesity Overactive bladder Partial bowel obstruction Hospital discharge follow-up Abnormal CT of the abdomen Hyperkalemia Small bowel obstruction Lab test negative for COVID-19 virus History of urinary incontinence History of [place] (myocardial infarction) Rectal prolapse Arthritis Bipolar II disorder Back pain Optic neuritis Fibromyalgia Dyspnea Obesity Surgical History History of surgery History of carpal tunnel release of both wrists Hx of thumb surgery History of pubovaginal sling (10/19/19) H/O cystoscopy (06/08/19) History of total right knee replacement (06/2016) History of total left knee replacement (TKR) (11/2016) Family History Mother Afib Heart disease Father Cardiac failure Respiratory failure Brother Afib Brother Hypertension Brother Hypertension Son No problems noted. Social History Household Members: Family Housing: House Alcohol intake: current Alcohol intake frequency: holidays/special occasions only Patient Tobacco Use Status: Former Tobacco user Tobacco use type: Cigarette Cigarette Packs Per Day: 1 Cigarettes Per Day: 20 Years Smoked: 20 Second Hand Smoke Exposure: No Substance Use Type: Marijuana service: No Current occupational status: unemployed Review of Systems Const Reports as per HPI Eyes Reports as per HPI ENT Reports as per HPI Card Reports as per HPI Resp Reports as per HPI GI Reports as per HPI Reports as per HPI Musc Reports as per HPI Neuro Reports as per HPI Psych Reports as per HPI Physical Exam Const General: cooperative, comfortable, no acute distress, well developed, alert and awake Nutritional Appearance: overweight Orientation/consciousness: patient oriented x3 Limitations: no limitations HEENT Head: Yes normal to inspection and Yes normocephalic Ears: hearing grossly normal bilaterally Eyes General: appearance normal, both eyes and all related structures Neck Neck: Yes normal visual inspection and Yes trachea midline Chest Chest palpation & inspection: normal inspection of the chest Resp Effort & Inspection: normal respiratory effort and able to speak in complete sentences Cardio Rate: regular rate GI Inspection: Yes normal to inspection (round) General: Yes no CVA tenderness Back/Spine/Pelvis Back: no CVA tenderness Neuro General: patient oriented x3 Psych Appearance: grossly normal Mental Status: mental status grossly normal Speech and movement: Normal speech and movement present and Clear speech present Affect: normal affect Attitude: cooperative Thought process: Normal thought process present Thought content: Normal thought content present Insight: Fair insight present (Psych) Judgement: Fair judgement present (Psych) Office Procedures Post Void Residual Post Residual Void Post Void Residual (PVR): [id number] Void Residual by ultrasound Results AMB Urinalysis, Automated UA Leukoctes 0 Josseline/uL Last Edit by Viviana Laguerre on 02/14/23 09:53 UA Nitrite Negative Last Edit by Viviana Laguerre on 02/14/23 09:53 UA Urobilinogen 0.2 mg/dL Last Edit by Viviana Laguerre on 02/14/23 09:53 UA Protein 0 mg/dL Last Edit by Viviana Laguerre on 02/14/23 09:53 UA pH 6.0 Last Edit by Viviana Laguerre on 02/14/23 09:53 UA Blood 0 Dustin/uL Last Edit by Viviana Laguerre on 02/14/23 09:53 UA Specific [place] 1.015 Last Edit by Viviana Laguerre on 02/14/23 09:53 UA Ketone Negative Last Edit by Viviana Laguerre on 02/14/23 09:53 UA Bilirubin 0 mg/dL Last Edit by Viviana Laguerre on 02/14/23 09:53 UA Glucose 0 mg/dL Last Edit by Viviana Laguerre on 02/14/23 09:53 Results Reviewed Results Reviewed: Laboratory Last Values Urine pH (Auto) 6.0 02/14/23 09:39 Specific [place] (Auto) 1.015 02/14/23 09:39 Urine Protein (Auto) 0 mg/dL 02/14/23 09:39 Glucose (UA)(Auto) 0 mg/dL 02/14/23 09:39 Urine Ketones (Auto) Negative 02/14/23 09:39 Urine Blood (Auto) 0 Dustin/uL 02/14/23 09:39 Urine Nitrite (Auto) Negative 02/14/23 09:39 Urine Bilirubin (Auto) 0 mg/dL 02/14/23 09:39 Urine Urobilinogen (Auto) 0.2 mg/dL 02/14/23 09:39 Leukocyte Esterase (Auto) 0 Josseline/uL 02/14/23 09:39 Assessment & Plan Assessment & Plan (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 PVR 139 mL. Discussed at length causes and affects of incomplete bladder emptying. Discussed possible low-dose terazosin to assist with incomplete bladder emptying. Patient has since stopped all urological medications. Patient reports to be happy with current voiding parameters on level/program 7 with Melvim Continue working with [employer] client care representative Adam Will attempt to obtain CT once completed for further assessment evaluation. Patient denies any bothersome urinary issues or concerns at this time. Follow-up in 1 month; if not sooner with any issues, concerns, and or questions. Orders: Orders AMB Post Void Residual by ultrasound 02/14/23 R39.15 - Urgency of urination AMB Urinalysis Automated 02/14/23 Z13.9 - Encounter for screening, unspecified Patient Instructions: The patient had an opportunity to ask questions regarding the treatment plan. All questions were answered. Physical exam, labs, and imaging were discussed and reviewed in detail. As well as risks, benefits, and discussion of treatment choices. No major barriers to understanding were identified. The patient expressed understanding and agreement with the above treatment plan. The patient was made aware they should contact our office by phone for worsening of their current condition, the appearance of new symptoms, or with any questions or concerns. Compliance is encouraged with any medications and follow up testing that is ordered. It is a privilege to be allowed the opportunity to participate in? your urological care.? Again, if you have any questions or concerns If you have any questions or concerns please do not hesitate to contact me. The office is [phone]. This note is constructed using voice recognition software. While every effort has been made to ensure accuracy drywall foreman errors may have been included. Yours sincerely, FRANCIA Brandon Coding Level of Care Code Est Pt Level 3 (89308) Diagnoses Bladder hypertonicity N31.8 Urgency of micturition R39.15 Urgency incontinence N39.41 Overactive bladder N32.81 CPT Codes Post Residual Void - PVR CPT Code: 09167-Summ Void Residual by ultrasound ([id number]) Time Spent (min) 45
== END 2023-02-14 10:08 | disposition home or self-care (01) ==
PROVIDERS: Visit Provider Nurse Practitioner Family
DX: N31.8 Other neuromuscular dysfunction of bladder (principal); R39.15 Urgency of urination; N32.81 Overactive bladder
CPT/HCPCS: 99213

== ENCOUNTER → 2023-02-14 09:29 | Outpatient (BNVA) | payer OTHER, SELFPAY | PROVIDERS: Visit Provider Nurse Practitioner Family | DX: N31.8 Other neuromuscular dysfunction of bladder (principal); N39.41 Urge incontinence; N32.81 Overactive bladder; R39.15 Urgency of urination | CPT/HCPCS: 51798; 81003; 99212 ==

== ENCOUNTER 2023-03-05 11:29 | Outpatient (REF) | payer OTHER, SELFPAY ==
[2023-03-05 14:28] LABS: MANUAL DIFF FLAG NO
[2023-03-05 14:36] LABS: Basophils Percent Auto 0.5 % (0-2); Eosinophils Percent Auto 0.4 % (0-4); Hemoglobin 12.9 g/dl (12.0-16.0); Imm Gran Abs Auto 0.02 X10*3/uL (0.00-0.03); Imm Gran Pct Auto 0.3 % (0.0-0.4); Lymphocytes Absolute Auto 1.5 X10*3/uL (1.2-4.9); Lymphocytes Percent Auto 19.3 % (20-40); Mean Corpuscular HGB Conc 31.5 g/dl (31.0-35.0); Mean Corpuscular Hemoglobin 25.3 pg (27.0-33.0); Mean Corpuscular Volume 80.6 fL (80.0-98.0); Mean Platelet Volume 12.2 fL (9.4-12.3); Monocytes Absolute Auto 0.6 X10*3/uL (0.1-1.2); Monocytes Percent Auto 7.3 % (2-11); Neutrophils Absolute Auto 5.5 x10*3/uL (2.0-8.3); Neutrophils Percent Auto 72.2 % (45-73); Platelet Count 291 X10*3/uL (160-400); Red Blood Count 5.09 X10*6/uL (4.20-5.50); Red Cell Distribution Width 14.6 % (11.0-16.0); White Blood Count 7.6 X10*3/uL (4.8-10.8)
[2023-03-05 14:57] LABS: Alanine Aminotransferase 10 U/L (0-31); Alkaline Phosphatase 57 U/L (39-117); Anion Gap 12 (12-20); Aspartate Amino Transferase 13 U/L (5-31); Bilirubin Direct 0.2 mg/dL (0.0-0.5); Bilirubin Total 0.5 mg/dL (0.0-1.0); Blood Urea Nitrogen 10 mg/dL (9-16); Calcium 8.9 mg/dL (8.4-10.2); Carbon Dioxide 27 mmol/L (22-29); Chloride 105 mmol/L (96-108); Cholesterol 124 mg/dL (<200); Estimated Glomerular Filt Rate > 60; Glucose Random 88 mg/dL (60-115); HDL Cholesterol 41 mg/dL (>40); LDL Cholesterol Calculated 75 mg/dL (<100); Potassium 3.5 mmol/L (3.3-5.1); Sodium 140 mmol/L (135-145); Total Protein 6.5 g/dL (6.5-8.0); Triglycerides 41 mg/dL (<150)
[2023-03-05 15:21] LABS: Thyroid Stimulating Hormone 0.41 uIU/mL (0.32-4.0)
== END 2023-03-05 11:30 | disposition home or self-care (01) ==
LOC: HO.CHCLDS 11:29
PROVIDERS: Visit Provider Student in an Organized Health Care Education/Training Program
DX: I10 Essential (primary) hypertension (principal); L65.9 Nonscarring hair loss, unspecified
CPT/HCPCS: 36415; 80048; 80061; 80076; 84443; 85025

== ENCOUNTER 2023-03-14 09:05 | Outpatient (AMB) | payer OTHER, SELFPAY ==
--- NOTE | 2023-03-14 09:16 | A.OFFVIS_ITS ---
Intake Intake Visit Reasons: 1m follow up Intake Note: Patient is present for follow up OAB/interstim Urology Medication: none Blood Thinner: aspirin PVR: Wader Boot Top Assembler Required: No Accompanied by: Self / Same As Patient Allergies Penicillins Allergy (Severe, Verified 03/14/23 17:33) ITCHING/SWELLING doxycycline [DOXYCYCLINE] Allergy (Intermediate, Verified 03/14/23 17:33) SEVERE ITCHING, pruritis sulfamethoxazole [Bactrim] Allergy (Unknown, Verified 03/14/23 17:33) Unknown Sulfa (Sulfonamide Antibiotics) Allergy (Verified 03/14/23 17:33) Chest Pain Medication List - Last Reconciled 03/14/23 by KATYA Brandon- amlodipine 10 mg PO DAILY aripiprazole 7.5 mg PO DAILY aspirin 81 mg PO DAILY atenolol 25 mg PO DAILY 90 days atorvastatin 10 mg PO DAILY betamethasone dipropionate 0.05% topical betamethasone dipropionate 0.05% 1 appl topical DAILY calcium carbonate 600 mg PO BID cetirizine (Zyrtec) 10 mg PO DAILY PRN cholecalciferol (vitamin D3) 2,000 units PO DAILY clobetasol 0.05% 1 appl topical BID clonazepam 1 mg PO TID PRN cyanocobalamin (vitamin B-12) mcg PO fluoxetine 40 mg PO DAILY folic acid 0.4 mg PO DAILY hydrocortisone 2.5% topical ketoconazole 2% topical omega 8-lhh-gox-fish oil 1,200 (144-216) mg (Fish Oil) caps PO pantoprazole 40 mg PO BID solifenacin (Vesicare) 5 mg PO DAILY 30 days solifenacin (Vesicare) 5 mg PO DAILY 30 days thiamine HCl (vitamin B1) 50mg 2 tabs orally daily; tretinoin 0.05% appl topical BEDTIME HPI HPI Comments History of Present Illness Details Niya is a pleasant 48-year-old female patient of Dr. Torre. She has a past medical history of sleep apnea, IBS, insomnia, GERD, hyperlipidemia, TIA, coronary artery disease, obesity, overactive bladder, partial bowel obstruction, arthritis, rectal prolapse, bipolar, fibromyalgia, and optic neuritis. She presents to the office today for follow-up of her stress incontinence and urinary urgency. Of note, patient underwent InterStim placement with Dr. Anne June of this year. She reports following up with Dr. Anne in July status post InterStim placement and had been doing well however, recently has been experiencing multiple health issues such as increased heart rate, decreased heart rate, and overall generalized abdominal pain. She reports having followed up with her PCP regarding these issues and has recently discontinued her atenolol and is doing and feeling significantly better than when she was last here. She also discusses feeling overactive bladder symtpoms have improved since having her InterStim however she does still report urinary urgency. She otherwise denies incontinence, nocturia, hematuria, dysuria, foul smelling urine, changes to urinary stream, flank pain, fever, and or chills. She also discusses continuing to lose weight. She discusses having lost a total of 82 pounds with diet and exercising. She had had a prior prolapse repair with Dr Hannah Eckert and failed conservative therapy medications in the past. [facility] Medical History Sleep apnea IBS (irritable bowel syndrome) Insomnia GERD (gastroesophageal reflux disease) Hyperlipidemia TIA (transient ischemic attack) Coronary artery disease Morbid obesity Overactive bladder Partial bowel obstruction Hospital discharge follow-up Abnormal CT of the abdomen Hyperkalemia Small bowel obstruction Lab test negative for COVID-19 virus History of urinary incontinence History of IA (myocardial infarction) Rectal prolapse Arthritis Bipolar II disorder Back pain Optic neuritis Fibromyalgia Dyspnea Obesity Surgical History History of surgery History of carpal tunnel release of both wrists Hx of thumb surgery History of pubovaginal sling (10/19/19) H/O cystoscopy (06/08/19) History of total right knee replacement (06/2016) History of total left knee replacement (TKR) (11/2016) Family History Mother Afib Heart disease Father Cardiac failure Respiratory failure Brother Afib Brother Hypertension Brother Hypertension Son No problems noted. Social History Household Members: Family Housing: House Alcohol intake: current Alcohol intake frequency: holidays/special occasions only Patient Tobacco Use Status: Former Tobacco user Tobacco use type: Cigarette Cigarette Packs Per Day: 1 Cigarettes Per Day: 20 Years Smoked: 20 Second Hand Smoke Exposure: No Substance Use Type: Marijuana service: No Current occupational status: unemployed Review of Systems Const Reports as per [facility] Eyes Reports as per HPI ENT Reports as per HPI Card Reports as per [facility] Resp Reports as per HPI GI Reports as per HPI Reports as per HPI Musc Reports as per HPI Neuro Reports as per HPI Psych Reports as per HPI Physical Exam Const General: cooperative, comfortable, no acute distress, well developed, alert and awake Nutritional Appearance: overweight Orientation/consciousness: patient oriented x3 Limitations: no limitations HEENT Head: Yes normal to inspection and Yes normocephalic Ears: hearing grossly normal bilaterally Eyes General: appearance normal, both eyes and all related structures Neck Neck: Yes normal visual inspection and Yes trachea midline Chest Chest palpation & inspection: normal inspection of the chest Resp Effort & Inspection: normal respiratory effort and able to speak in complete sentences Cardio Rate: regular rate GI Inspection: Yes normal to inspection (round) General: Yes no CVA tenderness Back/Spine/Pelvis Back: no CVA tenderness Neuro General: patient oriented x3 Psych Appearance: grossly normal Mental Status: mental status grossly normal Speech and movement: Normal speech and movement present and Clear speech present Affect: normal affect Attitude: cooperative Thought process: Normal thought process present Thought content: Normal thought content present Insight: Fair insight present (Psych) Judgement: Fair judgement present (Psych) Office Procedures Post Void Residual Post Residual Void Post Void Residual (PVR): 0 [id number] Void Residual by ultrasound Assessment & Plan Assessment & Plan (1) Bladder hypertonicity: Code(s): N31.8 - Other neuromuscular dysfunction of bladder (2) Urgency of micturition: Code(s): R39.15 - Urgency of urination (3) Overactive bladder: Code(s): N32.81 - Overactive bladder Plan In office urinalysis results reviewed with the patient today; as noted above. PVR 0 mL. Start VESIcare 5 mg as discussed and prescribed. Discussed bladder triggers/irritants. Discussed importance of drinking plenty of water daily. Follow-up in 6 weeks with PVR; or sooner with any issues, concerns, and or questions. Orders: Orders 2 AMB Urinalysis Automated Today Z13.9 - Encounter for screening, unspecified AMB Post Void Residual by ultrasound Today N39.41 - Urge incontinence Medications: New solifenacin (Vesicare) 5 mg PO DAILY 30 days 30 tabs 1RF solifenacin (Vesicare) 5 mg PO DAILY 30 days 30 tabs 1RF Patient Instructions: The patient had an opportunity to ask questions regarding the treatment plan. All questions were answered. Physical exam, labs, and imaging were discussed and reviewed in detail. As well as risks, benefits, and discussion of treatment choices. No major barriers to understanding were identified. The patient expressed understanding and agreement with the above treatment plan. The patient was made aware they should contact our office by phone for worsening of their current condition, the appearance of new symptoms, or with any questions or concerns. Compliance is encouraged with any medications and follow up testing that is ordered. It is a privilege to be allowed the opportunity to participate in? your urological care.? Again, if you have any questions or concerns If you have any questions or concerns please do not hesitate to contact me. The office is [phone]. This note is constructed using voice recognition software. While every effort has been made to ensure accuracy director diversity errors may have been included. Yours sincerely, FRANCIA Brandon Coding Level of Care Code Est Pt Level 4 (56712) Diagnoses Bladder hypertonicity N31.8 Urgency of micturition R39.15 Overactive bladder N32.81 CPT Codes Post Residual Void - PVR CPT Code: 37456-Irlj Void Residual by ultrasound ([id number])
== END 2023-03-14 10:24 | disposition home or self-care (01) ==
PROVIDERS: PCP Student in an Organized Health Care Education/Training Program; Visit Provider Nurse Practitioner Family
DX: N31.8 Other neuromuscular dysfunction of bladder (principal); R39.15 Urgency of urination; N32.81 Overactive bladder
CPT/HCPCS: 99214

== ENCOUNTER → 2023-03-14 09:05 | Outpatient (BNVA) | payer OTHER, SELFPAY | PROVIDERS: PCP Student in an Organized Health Care Education/Training Program; Visit Provider Nurse Practitioner Family | DX: N31.8 Other neuromuscular dysfunction of bladder (principal); N32.81 Overactive bladder; R39.15 Urgency of urination | CPT/HCPCS: 51798; 99212 ==

== ENCOUNTER 2023-03-17 12:37 | Outpatient (REF) | payer OTHER, SELFPAY ==
[2023-03-17 13:52] LABS: Appearance Urine Clear; Color Urine Yellow; Glucose Urine UA Negative (Negative); Leukocyte Esterase Urine Negative (Negative); Nitrite Urine Negative (Negative); Specific Gravity - Urine <= 1.005 (1.005-1.025); Urine Blood Negative (Negative); Urine Ketones Negative (Negative); Urine Protein Negative (Neg-Trace)
[2023-03-17 13:56] LABS: Bacteria Urine None Seen (None Seen); Hyaline Casts Urine 0-2 /LPF (0-2); RBC Urine 0-2 /HPF (0-2); Squamous Epithelial Cell Urine 0-2 /HPF (0-2); WBC Urine 0-5 /HPF (0-5)
== END 2023-03-17 12:38 | disposition home or self-care (01) ==
LOC: HO.LAB 12:37
PROVIDERS: PCP Student in an Organized Health Care Education/Training Program; Visit Provider Nurse Practitioner Family
DX: N39.41 Urge incontinence (principal)
CPT/HCPCS: 81001; 87086

== ENCOUNTER 2023-05-09 15:33 | Outpatient (REF) | payer OTHER, SELFPAY ==
--- NOTE | ~2023-05-09 | MM_ITS ---
EXAMINATION: MM SCREENING DIGITAL BREAST TOMOSYNTHESIS, BILATERAL CLINICAL INFORMATION: Screening. Asymptomatic. COMPARISON: Mammography: This study is compared with prior exams dating back to 2019. TECHNIQUE: Digital breast tomosynthesis is performed in both the craniocaudal and mediolateral oblique views along with computer-aided detection (CAD). Synthesized 2D images are generated from the tomosynthesis. FINDINGS: The breasts are heterogeneously dense, which may obscure small masses (ACR BI-RADS breast composition Category c). There is a 14 mm, oval mammographic asymmetry in the 3:00 region of the left breast. The April 2022 sonography of the 3:00 region of the left breast, 11 cm from the nipple showed a 7 mm oval bilobed hypoechoic structure with some edge shadowing and through transmission. This was reported to represent a benign cyst. On the current study, the laterally located asymmetry is of increased conspicuity and additional mammographic and targeted sonographic evaluation are advised. In the right breast, no are no significant masses, abnormal calcifications, or other abnormalities. MM/MM tomosynthesis screening BI IMPRESSION: Focal asymmetry of the left breast warrants additional mammographic and targeted sonographic evaluation. No mammographic signs of malignancy right breast. ASSESSMENT: BI-RADS BI-RADS 0 - Incomplete: Needs additional Imaging. RECOMMENDATION: 1. Additional views of the left breast 2. Targeted ultrasound if warranted after review of the additional views. 3. Radiology department staff will contact the patient for additional imaging. Additional Imaging required This examination should not preclude the clinical evaluation of a suspicious palpable abnormality. This patient's information was entered into a reminder system with a target due date for their next mammogram.
== END 2023-05-09 15:34 | disposition home or self-care (01) ==
LOC: HO.MAMMO 15:33
PROVIDERS: PCP Student in an Organized Health Care Education/Training Program; Visit Provider Student in an Organized Health Care Education/Training Program
DX: Z12.31 Encounter for screening mammogram for malignant neoplasm of breast (principal)
CPT/HCPCS: 77063; 77067

== ENCOUNTER → 2023-05-09 15:45 | Outpatient (BNV) | payer OTHER, SELFPAY | PROVIDERS: PCP Student in an Organized Health Care Education/Training Program; Visit Provider Radiology Diagnostic Radiology | DX: Z12.31 Encounter for screening mammogram for malignant neoplasm of breast (principal) | CPT/HCPCS: 77063; 77067 ==

== ENCOUNTER 2023-05-16 11:44 | Outpatient (AMB) | payer OTHER, SELFPAY ==
--- NOTE | 2023-05-16 11:59 | MHC.OFFVIS ---
Intake Intake Visit Reasons: 6w/PVR Intake Note: Patient is present for follow up OAB/interstim Urology Medication: none Blood Thinner: aspirin PVR: 0ml's Wide Piece Goods Inspector Required: No Accompanied by: Self / Same As Patient Allergies Penicillins Allergy (Severe, Verified 05/16/23 12:04) ITCHING/SWELLING doxycycline [DOXYCYCLINE] Allergy (Intermediate, Verified 05/16/23 12:04) SEVERE ITCHING, pruritis sulfamethoxazole [Bactrim] Allergy (Unknown, Verified 05/16/23 12:04) Unknown Sulfa (Sulfonamide Antibiotics) Allergy (Verified 05/16/23 12:04) Chest Pain HPI HPI Comments History of Present Illness Details Niya is a pleasant 48-year-old female patient of Dr. Torre. She has a past medical history of sleep apnea, IBS, insomnia, GERD, hyperlipidemia, TIA, coronary artery disease, obesity, overactive bladder, partial bowel obstruction, arthritis, rectal prolapse, bipolar, fibromyalgia, and optic neuritis. She presents to the office today for follow-up of her stress incontinence and urinary urgency. Of note, patient underwent InterStim placement with Dr. Anne June of this year. She reports feeling her lower urinary tract symptoms are coming back. She reports noting urinary frequency and urinary urgency. During last office visit patient was started on VESIcare however reports having experienced dysuria and possible hematuria for 3 days and has since stopped the medication. She reports lower urinary tract symptoms continue with urinary urgency, and frequency. She otherwise denies dysuria, foul-smelling urine, changes to urinary stream, flank pain, fever, and or chills. She continues to lose weight with her diet and exercising. She reports she continues with level 7 at 1.3 with her InterStim. She also has a previous prolapse repair with Dr. Hannah Eckert and failed conservative therapy medications in the past. In office urinalysis results reviewed with the patient today. PVR 0 mL. PFSH Medical History Sleep apnea IBS (irritable bowel syndrome) Insomnia GERD (gastroesophageal reflux disease) Hyperlipidemia TIA (transient ischemic attack) Coronary artery disease Morbid obesity Overactive bladder Partial bowel obstruction Hospital discharge follow-up Abnormal CT of the abdomen Hyperkalemia Small bowel obstruction Lab test negative for COVID-19 virus History of urinary incontinence History of PR (myocardial infarction) Rectal prolapse Arthritis Bipolar II disorder Back pain Optic neuritis Fibromyalgia Dyspnea Obesity Surgical History History of surgery History of carpal tunnel release of both wrists Hx of thumb surgery History of pubovaginal sling (10/19/19) H/O cystoscopy (06/08/19) History of total right knee replacement (06/2016) History of total left knee replacement (TKR) (11/2016) Family History Mother Afib Heart disease Father Cardiac failure Respiratory failure Brother Afib Brother Hypertension Brother Hypertension Son No problems noted. Social History Household Members: Family Housing: House Alcohol intake: current Alcohol intake frequency: holidays/special occasions only Comment: sleeping Patient Tobacco Use Status: Former Tobacco user Tobacco use type: Cigarette Cigarette Packs Per Day: 1 Cigarettes Per Day: 20 Years Smoked: 20 Second Hand Smoke Exposure: No Substance Use Type: Marijuana service: No Current occupational status: unemployed Review of Systems Const Reports no additional complaints Eyes Reports as per HPI ENT Reports as per HPI Card Reports as per HPI Resp Reports as per HPI GI Reports as per HPI Reports as per HPI Musc Reports as per HPI Neuro Reports as per HPI Psych Reports as per HPI Physical Exam Const General: cooperative, comfortable, no acute distress, well developed, alert and awake Nutritional Appearance: overweight Orientation/consciousness: patient oriented x3 Limitations: no limitations HEENT Head: Yes normal to inspection and Yes normocephalic Ears: hearing grossly normal bilaterally Eyes General: appearance normal, both eyes and all related structures Neck Neck: Yes normal visual inspection and Yes trachea midline Chest Chest palpation & inspection: normal inspection of the chest Resp Effort & Inspection: normal respiratory effort and able to speak in complete sentences Cardio Rate: regular rate GI Inspection: Yes normal to inspection (round) General: Yes no CVA tenderness Back/Spine/Pelvis Back: no CVA tenderness Neuro General: patient oriented x3 Psych Appearance: grossly normal Mental Status: mental status grossly normal Speech and movement: Normal speech and movement present and Clear speech present Affect: normal affect Attitude: cooperative Thought process: Normal thought process present Thought content: Normal thought content present Insight: Fair insight present (Psych) Judgement: Fair judgement present (Psych) Office Procedures Post Void Residual Post Residual Void Post Void Residual (PVR): 0 [id number] Void Residual by ultrasound Results AMB Urinalysis, Automated UA Leukoctes 0 Josseline/uL Last Edit by Viviana Laguerre on 05/16/23 12:22 UA Nitrite Negative Last Edit by Viviana Laguerre on 05/16/23 12:22 UA Urobilinogen 0.2 mg/dL Last Edit by Viviana Laguerre on 05/16/23 12:22 UA Protein 0 mg/dL Last Edit by Viviana Laguerre on 05/16/23 12:22 UA pH 6.0 Last Edit by Viviana Laguerre on 05/16/23 12:22 UA Blood 0 Dustin/uL Last Edit by Viviana Laguerre on 05/16/23 12:22 UA Specific [place] 1.010 Last Edit by Viviana Laguerre on 05/16/23 12:22 UA Ketone Negative Last Edit by Viviana Laguerre on 05/16/23 12:22 UA Bilirubin 0 mg/dL Last Edit by Viviana Laguerre on 05/16/23 12:22 UA Glucose 0 mg/dL Last Edit by Viviana Laguerre on 05/16/23 12:22 Assessment & Plan Assessment & Plan (1) Bladder hypertonicity: Code(s): N31.8 - Other neuromuscular dysfunction of bladder (2) Urgency of micturition: Code(s): R39.15 - Urgency of urination (3) Overactive bladder: Code(s): N32.81 - Overactive bladder Plan In office urinalysis results reviewed with the patient today; as noted above. PVR 0 mL. Stop VESIcare Start Myrbetriq 25 mg daily as discussed and prescribed Discussed obtaining bladder diary for further assessment evaluation Discussed bladder triggers/irritants. Discussed importance of drinking plenty of water daily. Follow-up in 6 weeks with PVR; or sooner with any issues, concerns, and or questions. Orders: Orders AMB Post Void Residual by ultrasound Today N32.81 - Overactive bladder AMB Urinalysis Automated Today Z13.9 - Encounter for screening, unspecified Medications: New mirabegron ER (Myrbetriq) 25 mg PO DAILY 30 days 30 tabs 1RF N30.10 - Interstitial cystitis (chronic) without hematuria, N32.81 - Overactive bladder, R35.1 - Nocturia, R39.15 - Urgency of urination Patient Instructions: The patient had an opportunity to ask questions regarding the treatment plan. All questions were answered. Physical exam, labs, and imaging were discussed and reviewed in detail. As well as risks, benefits, and discussion of treatment choices. No major barriers to understanding were identified. The patient expressed understanding and agreement with the above treatment plan. The patient was made aware they should contact our office by phone for worsening of their current condition, the appearance of new symptoms, or with any questions or concerns. Compliance is encouraged with any medications and follow up testing that is ordered. It is a privilege to be allowed the opportunity to participate in? your urological care.? Again, if you have any questions or concerns If you have any questions or concerns please do not hesitate to contact me. The office is [phone]. This note is constructed using voice recognition software. While every effort has been made to ensure accuracy toolroom attendant errors may have been included. Yours sincerely, FRANCIA Brandon Coding Level of Care Code Est Pt Level 4 (24755) Diagnoses Bladder hypertonicity N31.8 Urgency of micturition R39.15 Overactive bladder N32.81 CPT Codes Post Residual Void - PVR CPT Code: 53755-Hccx Void Residual by ultrasound ([id number])
== END 2023-05-16 12:37 | disposition home or self-care (01) ==
PROVIDERS: PCP Student in an Organized Health Care Education/Training Program; Visit Provider Nurse Practitioner Family
DX: N31.8 Other neuromuscular dysfunction of bladder (principal); R39.15 Urgency of urination; N32.81 Overactive bladder; Z13.9 Encounter for screening, unspecified
CPT/HCPCS: 99214

== ENCOUNTER → 2023-05-16 11:44 | Outpatient (BNVA) | payer OTHER, SELFPAY | PROVIDERS: PCP Student in an Organized Health Care Education/Training Program; Visit Provider Nurse Practitioner Family | DX: N31.8 Other neuromuscular dysfunction of bladder (principal); N32.81 Overactive bladder; R39.15 Urgency of urination | CPT/HCPCS: 51798; 81003; 99212 ==

== ENCOUNTER 2023-05-30 10:47 | Outpatient (REF) | payer OTHER, SELFPAY ==
--- NOTE | ~2023-05-30 | MM_ITS ---
EXAMINATION: MM DIAGNOSTIC DIGITAL BREAST TOMOSYNTHESIS, LEFT US BREAST LIMITED, LEFT MAMMOGRAPHY: CLINICAL INFORMATION: Diagnostic mammography and ultrasound for 3:00 left breast circumscribed 1.3 cm oval mass, previously characterized as a simple cyst by ultrasound dated 05/09/2022, however has enlarged since from 0.8 cm. Callback exam. COMPARISON: Mammography: Bilateral screening mammography 05/09/2023, 05/04/2022, 04/03/2021, and 03/28/2020. TECHNIQUE: Digital left breast tomosynthesis is performed utilizing the following views: Full-field left 3-D mediolateral view, spot compression 3-D left MLO x2, and left CC x2 images. FINDINGS: The breasts are heterogeneously dense, which may obscure small masses (ACR BI-RADS breast composition Category c). Within the 3:00 axis of the left breast, there is an isodense circumscribed oval mass with smooth borders measuring 1.3 cm maximally, previously 0.8 cm. This was previously characterized as a simple cyst. No additional suspicious abnormalities in the left breast. No axillary or skin abnormalities. ULTRASOUND: CLINICAL INFORMATION: As above. COMPARISON: Left breast ultrasound 05/09/2022. TECHNIQUE: Targeted sonographic evaluation was performed using a high frequency linear transducer. Selected archived documentation. FINDINGS: LEFT BREAST: There is an oval simple cyst, anechoic, with good through transmission and fairly perceptible chase, in the 3:00 axis of the left breast measuring 1.3 x 1.1 x 0.6 cm, slightly enlarged from previously 05/09/2022 when it measured 0.8 x 0.5 cm. This is a benign finding, and correlates well with the abnormality on mammography. There is no mass, abnormal shadowing, or additional cystic abnormality. MM/MM tomosynthesis added views L IMPRESSION: There are no findings left breast suspicious for malignancy. Slightly enlarged simple cyst in the 3:00 axis of the left breast now measuring 1.3 cm maximally. This is benign. No further follow-up recommended. Recommend the patient return to routine annual screening. OVERALL ASSESSMENT: Mammography: BI-RADS 2 - Benign Findings Ultrasound: BI-RADS 2 - Benign Findings RECOMMENDATION: 1 year F/U Results were provided to the patient at time of visit by the technologist. This patient's information was entered into a reminder system with a target due date for their next mammogram.
== END 2023-05-30 10:48 | disposition home or self-care (01) ==
LOC: HO.MAMMO 10:47
PROVIDERS: PCP Student in an Organized Health Care Education/Training Program; Visit Provider Student in an Organized Health Care Education/Training Program
DX: N64.89 Other specified disorders of breast (principal)
CPT/HCPCS: 76642; 77061; 77065

== ENCOUNTER → 2023-05-30 11:00 | Outpatient (BNV) | payer OTHER, SELFPAY | PROVIDERS: PCP Student in an Organized Health Care Education/Training Program; Visit Provider Radiology Diagnostic Radiology | DX: N63.25 Unspecified lump in the left breast, overlapping quadrants (principal) | CPT/HCPCS: 76642; 77065; G0279 ==

== ENCOUNTER 2023-06-07 07:58 | Outpatient (REF) | payer OTHER, SELFPAY ==
[2023-06-07 09:29] LABS: Appearance Urine Clear; Color Urine Yellow; Glucose Urine UA Negative (Negative); Leukocyte Esterase Urine Negative (Negative); Nitrite Urine Negative (Negative); PH 6.5 (5.0-9.0); Specific Gravity - Urine 1.025 (1.005-1.025); Urine Blood Negative (Negative); Urine Ketones Negative (Negative); Urine Protein Negative (Neg-Trace)
[2023-06-07 09:42] LABS: Bacteria Urine None Seen (None Seen); Hyaline Casts Urine 0-2 /LPF (0-2); RBC Urine 0-2 /HPF (0-2); WBC Urine 0-5 /HPF (0-5)
== END 2023-06-07 07:59 | disposition home or self-care (01) ==
LOC: HO.LAB 07:58
PROVIDERS: PCP Student in an Organized Health Care Education/Training Program; Visit Provider Nurse Practitioner Family
DX: N39.41 Urge incontinence (principal); M54.50 Low back pain, unspecified
CPT/HCPCS: 81001; 87086

== ENCOUNTER 2023-07-02 11:07 | Outpatient (AMB) | payer OTHER, SELFPAY ==
--- NOTE | 2023-07-02 11:25 | A.OFFVIS_ITS ---
Intake Intake Visit Reasons: 6w/PVR Intake Note: Patient is present for follow up OAB/interstim Urology Medication: tolterodine Blood Thinner: aspirin PVR: 0ml's Perishable Freight Inspector Required: No Accompanied by: Self / Same As Patient Allergies Penicillins Allergy (Severe, Verified 07/02/23 20:42) ITCHING/SWELLING doxycycline [DOXYCYCLINE] Allergy (Intermediate, Verified 07/02/23 20:42) SEVERE ITCHING, pruritis sulfamethoxazole [Bactrim] Allergy (Unknown, Verified 07/02/23 20:42) Unknown Sulfa (Sulfonamide Antibiotics) Allergy (Verified 07/02/23 20:42) Chest Pain Medication List - Last Reconciled 07/02/23 by KATYA Brandon- amlodipine 10 mg PO DAILY aripiprazole 7.5 mg PO DAILY aspirin 81 mg PO DAILY atenolol 25 mg PO DAILY 90 days atorvastatin 10 mg PO DAILY betamethasone dipropionate 0.05% topical betamethasone dipropionate 0.05% 1 appl topical DAILY calcium carbonate 600 mg PO BID cetirizine (Zyrtec) 10 mg PO DAILY PRN cholecalciferol (vitamin D3) 2,000 units PO DAILY clobetasol 0.05% 1 appl topical BID clonazepam 1 mg PO TID PRN cyanocobalamin (vitamin B-12) mcg PO fluoxetine 40 mg PO DAILY folic acid 0.4 mg PO DAILY hydrocortisone 2.5% topical ketoconazole 2% topical omega 0-mwl-ivq-fish oil 1,200 (144-216) mg (Fish Oil) caps PO pantoprazole 40 mg PO BID solifenacin (Vesicare) 5 mg PO DAILY 30 days thiamine HCl (vitamin B1) 50mg 2 tabs orally daily; tretinoin 0.05% appl topical BEDTIME HPI HPI Comments History of Present Illness Details Niya is a pleasant 48-year-old female patient of Dr. Torre. She has a past medical history of sleep apnea, IBS, insomnia, GERD, hyperlipidemia, TIA, coronary artery disease, obesity, overactive bladder, partial bowel obstruction, arthritis, rectal prolapse, bipolar, fibromyalgia, and optic neuritis. She presents to the office today for follow-up of her stress incontinence and urinary urgency. Of note, patient underwent InterStim placement with Dr. Anne June of last year. She reports feeling her lower urinary tract symptoms are reoccurring. She reports noting urinary frequency and urinary urgency. During last office visit patient was started on VESIcare however reports having experienced dysuria and possible hematuria for 3 days and has since stopped the medication therefore she was started on tolterodine. She reports no improvement in lower urinary tract symptoms on tolterodine. She continues with urinary frequency urinary urgency, and nocturia. She reports having called [employer] for her InterStim and has since changed her settings and is not sure if this has been helpful. She otherwise denies dysuria, foul- smelling urine, changes to urinary stream, flank pain, fever, and or chills. She continues to lose weight with her diet and exercising. She also has a previous prolapse repair with Dr. Hannah Eckert and failed conservative therapy medications in the past. In office urinalysis results reviewed with the patient today. PVR 0 mL. She has previously trialed Myrbetriq 25 mg as well as 50 mg daily and did not find this helpful. [facility] Medical History Sleep apnea IBS (irritable bowel syndrome) Insomnia GERD (gastroesophageal reflux disease) Hyperlipidemia TIA (transient ischemic attack) Coronary artery disease Morbid obesity Overactive bladder Partial bowel obstruction Hospital discharge follow-up Abnormal CT of the abdomen Hyperkalemia Small bowel obstruction Lab test negative for COVID-19 virus History of urinary incontinence History of NM (myocardial infarction) Rectal prolapse Arthritis Bipolar II disorder Back pain Optic neuritis Fibromyalgia Dyspnea Obesity Surgical History History of surgery History of carpal tunnel release of both wrists Hx of thumb surgery History of pubovaginal sling (10/19/19) H/O cystoscopy (06/08/19) History of total right knee replacement (06/2016) History of total left knee replacement (TKR) (11/2016) Family History Mother Afib Heart disease Father Cardiac failure Respiratory failure Brother Afib Brother Hypertension Brother Hypertension Son No problems noted. Social History Household Members: Family Housing: House Alcohol intake: current Alcohol intake frequency: holidays/special occasions only Comment: sleeping Patient Tobacco Use Status: Former Tobacco user Tobacco use type: Cigarette Cigarette Packs Per Day: 1 Cigarettes Per Day: 20 Years Smoked: 20 Second Hand Smoke Exposure: No Substance Use Type: Marijuana service: No Current occupational status: unemployed Review of Systems Const Reports no additional complaints Eyes Reports as per HPI ENT Reports as per HPI Card Reports as per HPI Resp Reports as per HPI GI Reports as per HPI Reports as per HPI Musc Reports as per HPI Neuro Reports as per HPI Psych Reports as per HPI Physical Exam Const General: cooperative, comfortable, no acute distress, well developed, alert and awake Nutritional Appearance: overweight Orientation/consciousness: patient oriented x3 Limitations: no limitations HEENT Head: Yes normal to inspection and Yes normocephalic Ears: hearing grossly normal bilaterally Eyes General: appearance normal, both eyes and all related structures Neck Neck: Yes normal visual inspection and Yes trachea midline Chest Chest palpation & inspection: normal inspection of the chest Resp Effort & Inspection: normal respiratory effort and able to speak in complete sentences Cardio Rate: regular rate GI Inspection: Yes normal to inspection (round) General: Yes no CVA tenderness Back/Spine/Pelvis Back: no CVA tenderness Neuro General: patient oriented x3 Psych Appearance: grossly normal Mental Status: mental status grossly normal Speech and movement: Normal speech and movement present and Clear speech present Affect: normal affect Attitude: cooperative Thought process: Normal thought process present Thought content: Normal thought content present Insight: Fair insight present (Psych) Judgement: Fair judgement present (Psych) Assessment & Plan Assessment & Plan (1) Bladder hypertonicity: Code(s): N31.8 - Other neuromuscular dysfunction of bladder (2) Urgency of micturition: Code(s): R39.15 - Urgency of urination (3) Overactive bladder: Code(s): N32.81 - Overactive bladder Plan In office urinalysis results reviewed with the patient today; as noted above. PVR 0 mL. Stop Tolterodine Is discuss trial of testosterone being verses attempting to restart Vesicare. Discussed potential causes of lower urinary tract symptoms patient is experiencing Discussed obtaining bladder diary for further assessment evaluation Discussed bladder triggers/irritants. Discussed importance of drinking plenty of water daily. Follow-up in 6 weeks with PVR; or sooner with any issues, concerns, and or questions. Medications: Changed From solifenacin (Vesicare) 5 mg PO DAILY 30 tabs 1RF 30 days To solifenacin (Vesicare) Discussed increasing to 2 tablets per day after 3 weeks if needed 5 mg PO DAILY 30 days 30 tabs 1RF Refilled solifenacin (Vesicare) Discussed increasing to 2 tablets per day after 3 weeks if needed 5 mg PO DAILY 30 tabs 1RF 30 days Discontinued tolterodine ER Discontinued Reason: Doctor's Order 4 mg PO DAILY 30 days 30 caps 1RF Coding Level of Care Code Est Pt Level 3 (19823) Diagnoses Bladder hypertonicity N31.8 Urgency of micturition R39.15 Overactive bladder N32.81
== END 2023-07-02 12:12 | disposition home or self-care (01) ==
PROVIDERS: PCP Student in an Organized Health Care Education/Training Program; Visit Provider Nurse Practitioner Family
DX: N31.8 Other neuromuscular dysfunction of bladder (principal); R39.15 Urgency of urination; N32.81 Overactive bladder
CPT/HCPCS: 99213

== ENCOUNTER → 2023-07-02 11:07 | Outpatient (BNVA) | payer OTHER, SELFPAY | PROVIDERS: PCP Student in an Organized Health Care Education/Training Program; Visit Provider Nurse Practitioner Family | DX: N31.8 Other neuromuscular dysfunction of bladder (principal); N32.81 Overactive bladder; R39.15 Urgency of urination | CPT/HCPCS: 99212 ==

== ENCOUNTER 2023-08-20 09:48 | Outpatient (REF) | payer OTHER, SELFPAY ==
[2023-08-20 14:53] LABS: MANUAL DIFF FLAG NO
[2023-08-20 14:55] LABS: Basophils Percent Auto 0.5 % (0-2); Eosinophils Absolute Auto 0.1 X10*3/uL (0.0-0.4); Hematocrit 40.6 % (37.0-47.0); Hemoglobin 13.3 g/dl (12.0-16.0); Imm Gran Abs Auto 0.02 X10*3/uL (0.00-0.03); Imm Gran Pct Auto 0.3 % (0.0-0.4); Lymphocytes Absolute Auto 1.7 X10*3/uL (1.2-4.9); Lymphocytes Percent Auto 27.5 % (20-40); Mean Corpuscular HGB Conc 32.8 g/dl (31.0-35.0); Mean Corpuscular Hemoglobin 26.9 pg (27.0-33.0); Mean Platelet Volume 11.8 fL (9.4-12.3); Monocytes Absolute Auto 0.4 X10*3/uL (0.1-1.2); Monocytes Percent Auto 6.5 % (2-11); Neutrophils Absolute Auto 3.9 x10*3/uL (2.0-8.3); Neutrophils Percent Auto 64.2 % (45-73); Platelet Count 281 X10*3/uL (160-400); Red Blood Count 4.95 X10*6/uL (4.20-5.50); Red Cell Distribution Width 14.3 % (11.0-16.0); White Blood Count 6.1 X10*3/uL (4.8-10.8)
[2023-08-20 16:59] LABS: Rheumatoid Factor < 13.0 IU/mL (<15.0)
[2023-08-25 15:43] LABS: Anti Nuclear Antibody Screen NEGATIVE (NEGATIVE)
== END 2023-08-20 09:49 | disposition home or self-care (01) ==
LOC: HO.CHCLDS 09:48
PROVIDERS: Visit Provider Student in an Organized Health Care Education/Training Program
DX: M79.7 Fibromyalgia (principal)
CPT/HCPCS: 36415; 85025; 86038; 86431

== ENCOUNTER 2023-09-19 11:58 | Outpatient (AMB) | payer OTHER, SELFPAY ==
--- NOTE | 2023-09-19 11:59 | MHC.OFFVIS ---
Intake Visit Reasons: 6w/PVR Intake Note: Patient is present for follow up OAB/interstim Urology Medication: Vesicare and Gemtesa Blood Thinner: aspirin PVR: 0ml's Offset Lithographic Press Setter Required: No Accompanied by: Self / Same As Patient Allergies Penicillins Allergy (Severe, Verified 09/22/23 17:11) ITCHING/SWELLING doxycycline [DOXYCYCLINE] Allergy (Intermediate, Verified 09/22/23 17:11) SEVERE ITCHING, pruritis sulfamethoxazole [Bactrim] Allergy (Unknown, Verified 09/22/23 17:11) Unknown Sulfa (Sulfonamide Antibiotics) Allergy (Verified 09/22/23 17:11) Chest Pain Medication List - Last Reconciled 09/22/23 by KATYA Brandon- amlodipine 10 mg PO DAILY aripiprazole 7.5 mg PO DAILY aspirin 81 mg PO DAILY atenolol 25 mg PO DAILY 90 days atorvastatin 10 mg PO DAILY betamethasone dipropionate 0.05% topical betamethasone dipropionate 0.05% 1 appl topical DAILY calcium carbonate 600 mg PO BID cetirizine (Zyrtec) 10 mg PO DAILY PRN cholecalciferol (vitamin D3) 2,000 units PO DAILY clobetasol 0.05% 1 appl topical BID clonazepam 1 mg PO TID PRN cyanocobalamin (vitamin B-12) mcg PO fesoterodine ER 4 mg PO DAILY 30 days fluoxetine 40 mg PO DAILY folic acid 0.4 mg PO DAILY hydrocortisone 2.5% topical ketoconazole 2% topical omega 5-pkv-sxl-fish oil 1,200 (144-216) mg (Fish Oil) caps PO pantoprazole 40 mg PO BID thiamine HCl (vitamin B1) 50mg 2 tabs orally daily; tretinoin 0.05% appl topical BEDTIME HPI Comments Details: Niya is a pleasant 48-year-old female patient of Dr. Torre. She has a past medical history of sleep apnea, IBS, insomnia, GERD, hyperlipidemia, TIA, coronary artery disease, obesity, overactive bladder, partial bowel obstruction, arthritis, rectal prolapse, bipolar, fibromyalgia, and optic neuritis. She presents to the office today for follow-up of her lower urinary tract symptoms. Of note, patient underwent InterStim placement with Dr. Anne June of last year. She reports feeling her lower urinary tract symptoms are reoccurring. She reports noting urinary frequency, urinary urgency, and episodes of incontinence if not near a bathroom. She continues to work with [employer] on adjustments of InterStim with no improvement. Since her InterStim she has trialed and failed Myrbetriq, VESIcare, tolterodine, oxybutynin, and Gemtesa. She reports having followed up with urgent care as she has been experiencing sinusitis like symptoms when starting Gemtesa. She has also trialed dual therapy of Myrbetriq and VESIcare however felt this caused her bradycardia. In office urinalysis results reviewed with the patient today. PVR 0 mL. She otherwise denies dysuria, foul-smelling urine, changes to urinary stream, flank pain, fever, and or chills. She also has a previous prolapse repair with Dr. Hannah Eckert and failed conservative therapy medications in the past. Discuss trial of Festosterodine and or in office urodynamics for further assessment evaluation. She reports previous history of Botox in the past with Dr. Hendricks and felt this worsened symptoms. She otherwise offers no other issues or concerns at this time. [facility] [place] Medical History Sleep apnea IBS (irritable bowel syndrome) Insomnia GERD (gastroesophageal reflux disease) Hyperlipidemia TIA (transient ischemic attack) Coronary artery disease Morbid obesity Overactive bladder Partial bowel obstruction Hospital discharge follow-up Abnormal CT of the abdomen Hyperkalemia Small bowel obstruction Lab test negative for COVID-19 virus History of urinary incontinence History of [place] (myocardial infarction) Rectal prolapse Arthritis Bipolar II disorder Back pain Optic neuritis Fibromyalgia Dyspnea Obesity Surgical History History of surgery History of carpal tunnel release of both wrists Hx of thumb surgery History of pubovaginal sling (10/19/19) H/O cystoscopy (06/08/19) History of total right knee replacement (06/2016) History of total left knee replacement (TKR) (11/2016) Family History Mother Afib Heart disease Father Cardiac failure Respiratory failure Brother Afib Brother Hypertension Brother Hypertension Son No problems noted. Social History Household Members: Family Housing: House Alcohol intake: current Alcohol intake frequency: holidays/special occasions only Comment: sleeping Patient Tobacco Use Status: Former Tobacco user Tobacco use type: Cigarette Cigarette Packs Per Day: 1 Cigarettes Per Day: 20 Years Smoked: 20 Second Hand Smoke Exposure: No Substance Use Type: Marijuana service: No Current occupational status: unemployed Review of Systems Const Reports no additional complaints Eyes Reports as per HPI ENT Reports as per HPI Card Reports as per HPI Resp Reports as per HPI GI Reports as per HPI Reports as per HPI Musc Reports as per HPI Neuro Reports as per HPI Psych Reports as per HPI Physical Exam Const General: cooperative, healthy appearing, comfortable, no acute distress, well developed, alert and awake Nutritional Appearance: overweight Orientation/consciousness: patient oriented x3 Limitations: no limitations HEENT Head: Yes normal to inspection and Yes normocephalic Ears: hearing grossly normal bilaterally Eyes General: appearance normal, both eyes and all related structures Neck Neck: Yes normal visual inspection and Yes trachea midline Chest Chest palpation & inspection: normal inspection of the chest Resp Effort & Inspection: normal respiratory effort and able to speak in complete sentences Cardio Rate: regular rate GI Inspection: Yes normal to inspection (round) General: Yes no CVA tenderness Back/Spine/Pelvis Back: no CVA tenderness Neuro General: patient oriented x3 Psych Appearance: grossly normal Mental Status: mental status grossly normal Speech and movement: Normal speech and movement present and Clear speech present Affect: normal affect Attitude: cooperative Thought process: Normal thought process present Thought content: Normal thought content present Insight: Fair insight present (Psych) Judgement: Fair judgement present (Psych) Office Procedures Post Void Residual Post Residual Void Post Void Residual (PVR): 0 [id number]-[id number] Void Residual by ultrasound Results AMB Urinalysis, Automated UA Leukoctes 0 Josseline/uL Last Edit by [employer] on 09/19/23 13:28 UA Nitrite Negative Last Edit by Hobo Labsshelia Laguerre on 09/19/23 13:28 UA Urobilinogen 0.2 mg/dL Last Edit by [employer] on 09/19/23 13:28 UA Protein 0 mg/dL Last Edit by Hobo Labsshelia Laguerre on 09/19/23 13:28 UA pH 6.0 Last Edit by Hobo Labsshelia Laguerre on 09/19/23 13:28 UA Blood 0 Dustin/uL Last Edit by Viviana Laguerre on 09/19/23 13:28 UA Specific [place] 1.010 Last Edit by Viviana Laguerre on 09/19/23 13:28 UA Ketone Negative Last Edit by Viviana Laguerre on 09/19/23 13:28 UA Bilirubin 0 mg/dL Last Edit by Viviana Laguerre on 09/19/23 13:28 UA Glucose 0 mg/dL Last Edit by Viviana Laguerre on 09/19/23 13:28 Results Reviewed Results Reviewed: Laboratory Last Values Urine pH (Auto) 6.0 09/19/23 13:27 Specific [place] (Auto) 1.010 09/19/23 13:27 Urine Protein (Auto) 0 mg/dL 09/19/23 13:27 Glucose (UA)(Auto) 0 mg/dL 09/19/23 13:27 Urine Ketones (Auto) Negative 09/19/23 13:27 Urine Blood (Auto) 0 Dustin/uL 09/19/23 13:27 Urine Nitrite (Auto) Negative 09/19/23 13:27 Urine Bilirubin (Auto) 0 mg/dL 09/19/23 13:27 Urine Urobilinogen (Auto) 0.2 mg/dL 09/19/23 13:27 Leukocyte Esterase (Auto) 0 Josseline/uL 09/19/23 13:27 Assessment & Plan Assessment & Plan (1) Bladder hypertonicity: Code(s): N31.8 - Other neuromuscular dysfunction of bladder Category: Medical (2) Urgency of micturition: Code(s): R39.15 - Urgency of urination Category: Medical (3) Urgency incontinence: Code(s): N39.41 - Urge incontinence Category: Medical (4) DEON (stress urinary incontinence, female): Code(s): N39.3 - Stress incontinence (female) (male) Category: Medical (5) Overactive bladder: Code(s): N32.81 - Overactive bladder Category: Medical Plan In office urinalysis results reviewed with the patient today; as noted above. PVR 0 mL Stop Gemtesa. Discussed at length potential causes for lower urinary tract symptoms patient is experiencing. Start Festoterodine as discussed and prescribed. Discussed in office urodynamics for further assessment evaluation; however patient declines at this time. Discussed bladder triggers/irritants. Follow-up in 4-[address] Anne as discussed; or sooner with any issues, concerns, and or questions. Orders: Orders AMB Urinalysis Automated 09/19/23 Z13.9 - Encounter for screening, unspecified AMB Post Void Residual by ultrasound 09/19/23 R39.15 - Urgency of urination Medications: New fesoterodine ER 4 mg PO DAILY 30 tabs 1RF 30 days N30.40 - Irradiation cystitis without hematuria Discontinued vibegron (Gemtesa) Discontinued Reason: Doctor's Order 75 mg PO DAILY 30 tabs 1RF 30 days N32.81 - Overactive bladder, N39.41 - Urge incontinence, R39.15 - Urgency of urination solifenacin (Vesicare) Discussed increasing to 2 tablets per day after 3 weeks if needed Discontinued Reason: Doctor's Order 5 mg PO DAILY 30 tabs 1RF 30 days Patient Instructions: The patient had an opportunity to ask questions regarding the treatment plan. All questions were answered. Physical exam, labs, and imaging were discussed and reviewed in detail. As well as risks, benefits, and discussion of treatment choices. No major barriers to understanding were identified. The patient expressed understanding and agreement with the above treatment plan. The patient was made aware they should contact our office by phone for worsening of their current condition, the appearance of new symptoms, or with any questions or concerns. Compliance is encouraged with any medications and follow up testing that is ordered. It is a privilege to be allowed the opportunity to participate in? your urological care.? Again, if you have any questions or concerns If you have any questions or concerns please do not hesitate to contact me. The office is [phone]. This note is constructed using voice recognition software. While every effort has been made to ensure accuracy biodiesel production associate errors may have been included. Yours sincerely, FRANCIA Brandon Coding Level of Care Code Est Pt Level 4 (79989) Diagnoses Bladder hypertonicity N31.8 Urgency of micturition R39.15 Urgency incontinence N39.41 DEON (stress urinary incontinence, female) N39.3 Overactive bladder N32.81 CPT Codes Post Residual Void - PVR CPT Code: 41520-Mxre Void Residual by ultrasound ([id number])
== END 2023-09-19 12:46 | disposition home or self-care (01) ==
PROVIDERS: PCP Student in an Organized Health Care Education/Training Program; Visit Provider Nurse Practitioner Family
DX: N31.8 Other neuromuscular dysfunction of bladder (principal); R39.15 Urgency of urination; N39.41 Urge incontinence; N39.3 Stress incontinence (female) (male); N32.81 Overactive bladder
CPT/HCPCS: 99214

== ENCOUNTER → 2023-09-19 11:58 | Outpatient (BNVA) | payer OTHER, SELFPAY | PROVIDERS: PCP Student in an Organized Health Care Education/Training Program; Visit Provider Nurse Practitioner Family | DX: N31.8 Other neuromuscular dysfunction of bladder (principal); N39.41 Urge incontinence; N39.3 Stress incontinence (female) (male); N32.81 Overactive bladder; R39.15 Urgency of urination | CPT/HCPCS: 51798; 81003; 99212 ==

== ENCOUNTER 2023-10-03 06:07 | Outpatient (REF) | payer OTHER, SELFPAY ==
--- NOTE | ~2023-10-03 | XR_ITS ---
EXAMINATION: XR ABDOMEN COMPLETE CLINICAL INDICATION: Checking stimulator lead placement. Calculus of kidney. COMPARISON: None available. TECHNIQUE: 2 views of the abdomen. FINDINGS: There is a stimulator lead placed over the right iliac crest with the distal end of the stimulator overlying the central pelvis. The wire and appears intact. There is a large volume of stool which obscures detail overlying the kidneys but no discrete calcifications are seen. XR/XR abdomen min 2V IMPRESSION: Stimulator lead placement as described.
== END 2023-10-03 06:08 | disposition home or self-care (01) ==
LOC: HO.XRAY 06:07
PROVIDERS: PCP Student in an Organized Health Care Education/Training Program; Visit Provider Urology
DX: N20.0 Calculus of kidney (principal)
CPT/HCPCS: 74019

== ENCOUNTER 2023-11-05 10:21 | Emergency (ER) | payer OTHER, SELFPAY ==
[2023-11-05 10:27] VITALS: BP 142/91; PULSE 104; RESP 16; TEMP 37; O2SAT 96; BMI 33.5
--- NOTE | 2023-11-05 12:18 | ECG_ITS ---
Test Reason : DIZZINESS Blood Pressure : / mmHG Vent. Rate : 097 BPM Atrial Rate : 097 BPM P-R Int : 152 ms QRS Dur : 094 ms QT Int : 380 ms P-R-T Axes : 062 050 028 degrees QTc Int : 482 ms Normal sinus rhythm Low voltage QRS Prolonged QT Abnormal ECG When compared with ECG of 23-DEC-2022 09:06, No significant change was found Referred By: Karlee Sharp Electronically Signed By:Koko Roque
[2023-11-05 13:00] LABS: MANUAL DIFF FLAG NO
[2023-11-05 13:06] LABS: Basophils Percent Auto 0.3 % (0-2); Eosinophils Percent Auto 0.4 % (0-4); Hematocrit 40.9 % (37.0-47.0); Hemoglobin 13.1 g/dl (12.0-16.0); Imm Gran Abs Auto 0.03 X10*3/uL (0.00-0.03); Imm Gran Pct Auto 0.3 % (0.0-0.4); Lymphocytes Absolute Auto 1.7 X10*3/uL (1.2-4.9); Lymphocytes Percent Auto 17.8 % (20-40); Mean Corpuscular Hemoglobin 26.6 pg (27.0-33.0); Monocytes Absolute Auto 0.4 X10*3/uL (0.1-1.2); Monocytes Percent Auto 4.3 % (2-11); Neutrophils Absolute Auto 7.3 x10*3/uL (2.0-8.3); Neutrophils Percent Auto 76.9 % (45-73); Platelet Count 262 X10*3/uL (160-400); Red Blood Count 4.93 X10*6/uL (4.20-5.50); Red Cell Distribution Width 13.9 % (11.0-16.0); White Blood Count 9.5 X10*3/uL (4.8-10.8)
[2023-11-05 13:34] LABS: Alanine Aminotransferase 14 U/L (0-31); Albumin Level 4.1 g/dL (3.5-5.0); Alkaline Phosphatase 61 U/L (39-117); Anion Gap 10 (12-20); Aspartate Amino Transferase 14 U/L (5-31); Bilirubin Direct 0.2 mg/dL (0.0-0.5); Bilirubin Total 0.4 mg/dL (0.0-1.0); Blood Urea Nitrogen 13 mg/dL (9-16); Carbon Dioxide 27 mmol/L (22-29); Chloride 108 mmol/L (96-108); Creatinine Clr Calc Pharmacy 98.5; Estimated Glomerular Filt Rate > 60; Glucose Random 94 mg/dL (60-115); HCG Quantitative < 2 mIU/mL; Magnesium 1.9 mg/dL (1.6-2.6); Potassium 3.6 mmol/L (3.3-5.1); Sodium 141 mmol/L (135-145); Total Protein 6.5 g/dL (6.5-8.0); Troponin-I High Sensitivity < 2.7 ng/L (<3.5-17.0)
[2023-11-05 13:40] LABS: Influenza A PCR NEGATIVE (Negative); Influenza B PCR NEGATIVE (Negative); Resp Syncy Virus RNA Qual PCR NEGATIVE (Negative); SARS COV2 PCR INHOUSE NEGATIVE (Negative)
--- NOTE | 2023-11-05 19:37 | ED_ITS ---
HPI - General Adult General Chief complaint: Dizziness Stated complaint: light headed Time Seen by Provider: 11/05/23 19:37 History of Present Illness ED Provider: Madie BLACK narrative: The patient is a 48-year-old woman who says that for approximately the last 5 days she has been feeling lightheaded and dizzy. She says that she has been feeling less energy than usual. She also has had a sense of pressure behind her eyes. She says she recently finished a prescription of cephalexin for a possible sinus infection. She says that she has been checking your blood pressure and sometimes her diastolic blood pressure has been as low as 50 or 60. She ultimately decided to come to the emergency room because she was worried she might be having a stroke. While waiting in the emergency room she says that she had a sense of tingling or bumpiness on her scalp. The patient says that she has chronic nonpleuritic chest discomfort. She says she has no new chest discomfort. She does not describe any shortness of breath. No abdominal pain, nausea, vomiting. No difficulty speaking or difficulty walking. No weakness in her extremities. Related Data Home Medications ?Medication ?Instructions ?Recorded ?Confirmed clonazepam 1 mg tablet 1 mg PO TID PRN Skin Cleansing 01/26/20 07/02/23 fluoxetine 20 mg capsule 40 mg PO DAILY 01/26/20 07/02/23 pantoprazole 40 mg tablet,delayed 40 mg PO BID 06/04/21 07/02/23 release calcium carbonate 600 mg PO BID 08/31/21 07/02/23 amlodipine 10 mg tablet 10 mg PO DAILY 04/30/22 07/02/23 aripiprazole 15 mg tablet 7.5 mg PO DAILY 04/30/22 07/02/23 atorvastatin 10 mg tablet 10 mg PO DAILY 05/01/22 07/02/23 cetirizine 10 mg capsule (Zyrtec) 10 mg PO DAILY PRN 12/25/22 07/02/23 folic acid 400 mcg tablet 0.4 mg PO DAILY 12/25/22 07/02/23 omega 9-kxj-xjw-fish oil 1,200 mg cap PO 12/25/22 07/02/23 (144 mg-216 mg) capsule (Fish Oil) betamethasone dipropionate 0.05 % topical 01/24/23 07/02/23 topical ointment cyanocobalamin (vitamin B-12) 250 mcg PO 01/24/23 07/02/23 mcg tablet ketoconazole 2 % shampoo topical 01/24/23 07/02/23 tretinoin 0.05 % topical cream appl topical BEDTIME 01/24/23 07/02/23 betamethasone dipropionate 0.05 % 1 appl topical DAILY 02/14/23 07/02/23 lotion cholecalciferol (vitamin D3) 25 2,000 unit PO DAILY 02/14/23 07/02/23 mcg (1,000 unit) capsule clobetasol 0.05 % topical ointment 1 appl topical BID 02/14/23 07/02/23 hydrocortisone 2.5 % topical topical 02/14/23 07/02/23 ointment thiamine HCl (vitamin B1) 100 mg See Rx Instructions PO DAILY 02/14/23 07/02/23 tablet Previous Rx's ?Medication ?Instructions ?Recorded aspirin 81 mg tablet,delayed 81 mg PO DAILY #90 tabs 06/26/20 release atenolol 25 mg tablet 25 mg PO DAILY 90 days #90 tabs 11/03/20 fesoterodine 4 mg tablet,extended 4 mg PO DAILY 30 days #30 tabs 09/19/23 release 24 hr Allergies Allergy/AdvReac Type Severity Reaction Status Date / Time Penicillins Allergy Severe ITCHING/SWE Verified 09/22/23 17:11 LLING doxycycline [DOXYCYCLINE] Allergy Intermediate SEVERE Verified 09/22/23 17:11 ITCHING, pruritis sulfamethoxazole [Bactrim] Allergy Unknown Unknown Verified 09/22/23 17:11 clindamycin Allergy Gastrointestinal Verified 11/05/23 10:32 Upset famotidine Allergy Anaphylaxis Verified 11/05/23 10:32 Sulfa (Sulfonamide Allergy Chest Pain Verified 09/22/23 17:11 Antibiotics) Review of Systems 2 Review of Systems: Yes all other systems are reviewed and are negative PMFSH Past Medical History Medical History Sleep apnea IBS (irritable bowel syndrome) Insomnia GERD (gastroesophageal reflux disease) Hyperlipidemia TIA (transient ischemic attack) Coronary artery disease Morbid obesity Overactive bladder Partial bowel obstruction Hospital discharge follow-up Abnormal CT of the abdomen Hyperkalemia Small bowel obstruction Lab test negative for COVID-19 virus History of urinary incontinence History of PR (myocardial infarction) Rectal prolapse Arthritis Bipolar II disorder Back pain Optic neuritis Fibromyalgia Dyspnea Obesity Surgical History History of surgery History of carpal tunnel release of both wrists Hx of thumb surgery History of pubovaginal sling (10/19/19) H/O cystoscopy (06/08/19) History of total right knee replacement (06/2016) History of total left knee replacement (TKR) (11/2016) Family History Family History Mother Afib Heart disease Father Cardiac failure Respiratory failure Brother Afib Brother Hypertension Brother Hypertension Son No problems noted. Social History Social History Household Members: Family Housing: House Alcohol intake: current Alcohol intake frequency: holidays/special occasions only Comment: sleeping Patient Tobacco Use Status: Former Tobacco user Tobacco use type: Cigarette Cigarette Packs Per Day: 1 Cigarettes Per Day: 20 Years Smoked: 20 Second Hand Smoke Exposure: No Substance Use Type: Marijuana Advance Directives: No Advance Directives Information Provided: Yes service: No Current occupational status: unemployed Physical Exam ED Vital Signs: Vital Signs - 24 hr 11/05/23 10:27 11/05/23 19:51 11/05/23 20:22 Temperature 98.6 F 98.4 F 98.4 F Pulse Rate 104 H 89 89 Respiratory Rate 16 17 17 Blood Pressure 142/91 H 121/83 121/83 Pulse Oximetry 96 98 98 Oxygen Delivery Method Room Air Room Air Room Air BMI result Body Mass Index 33.5 Const Other: The patient is awake and alert. She has a very animated demeanor. She does not appear in any distress. HENMT Other: Face is symmetrical. Mucous membranes are moist. Tongue is midline. The posterior pharynx is normal. Eyes Other: Pupils are round, equal, and reactive to light. Conjunctivae are clear. Extraocular movements are intact. Neck Other: She is moving her neck easily. No adenopathy. Neck is supple. Resp Effort & Inspection: normal respiratory effort Auscultation: clear to auscultation bilaterally Cardio Other: She seemed to have occasional irregular beats but she seemed to have an underlying regular rhythm. Rate: regular rate Rhythm: regular rhythm Heart sounds: S1 normal heart sound present and S2 normal heart sound present GI Other: Abdomen is soft and nontender Skin Other: Skin is dry and unremarkable Neuro Other: The patient is awake and alert with a normal mental status. Pupils are round, equal, and reactive to light. Extraocular movements are intact. There is no nystagmus. Face is symmetrical. Speech is clear and appropriate. She has intact strength in all extremities. There is no pronator drift. Finger-nose is normal bilaterally. She has a normal gait. She seems neurologically intact. Extrem Other: I do not appreciate any asymmetry in the patient's lower legs or ankles. Do not appreciate any calf swelling or tenderness. No significant edema. Medical Decision Making Medical Decision Making MDM Narrative: The patient is a 48-year-old woman who presents with a chief complaint of lightheadedness and dizziness lasting for several days. She does not appear unwell and she does not have any apparent neurological deficit. The patient says that she was once diagnosed with a TIA in the past. She seemed primarily concerned that she might have some kind of problem with her head with regard to blood flow. She specifically asked if she should have a CT scan to evaluate the blood flow to her brain. Based on her description of her symptoms and based on her physical exam I am not finding anything that makes me think she has having a stroke or any other process that would be apparent on a head CT or a CT angiogram of the head and neck. I explained to the patient that her exam was very reassuring and that my suspicion that a CT scan would be useful was very low. I think she may be discharged and should follow up with the regular doctor. Lab Data 11/05/23 12:53 11/05/23 12:53 Labs: Lab Results 11/05/23 11/05/23 Range/Units 12:53 12:54 WBC 9.5 (4.8-10.8) X10*3/uL RBC 4.93 (4.20-5.50) X10*6/uL Hgb 13.1 (12.0-16.0) g/dl Hct 40.9 (37.0-47.0) % MCV 83.0 (80.0-98.0) fL MCH 26.6 L (27.0-33.0) pg MCHC 32.0 (31.0-35.0) g/dl RDW 13.9 (11.0-16.0) % Plt Count 262 (160-400) X10*3/uL MPV 11.0 (9.4-12.3) fL Immature Gran % (Auto) 0.3 (0.0-0.4) % Neut % (Auto) 76.9 H (45-73) % Lymph % (Auto) 17.8 L (20-40) % Hidalgo % (Auto) 4.3 (2-11) % Eos % (Auto) 0.4 (0-4) % Baso % (Auto) 0.3 (0-2) % Lymph # (Auto) 1.7 (1.2-4.9) X10*3/uL Hidalgo # (Auto) 0.4 (0.1-1.2) X10*3/uL Eos # (Auto) 0.0 (0.0-0.4) X10*3/uL Baso # (Auto) 0.0 (0.0-0.2) X10*3/uL Abs Immat Gran (auto) 0.03 (0.00-0.03) X10*3/uL Absolute Neuts (auto) 7.3 (2.0-8.3) x10*3/uL Absolute Nucleated RBC 0.000 (0.0-0.012) X10*3/uL Nucleated RBC % (auto) 0.0 (0.0-0.2) /100WBC PT 12.0 (11.1-13.3) SEC INR 1.0 (0.9-1.1) Sodium 141 (135-145) mmol/L Potassium 3.6 (3.3-5.1) mmol/L Chloride 108 (96-108) mmol/L Carbon Dioxide 27 (22-29) mmol/L Anion Gap 10 L (12-20) BUN 13 (9-16) mg/dL Creatinine 0.74 (0.5-1.4) mg/dL Estim Creat Clear Calc 98.5 Estimated GFR > 60 Random Glucose 94 (60-115) mg/dL Calcium 9.0 (8.4-10.2) mg/dL Magnesium 1.9 (1.6-2.6) mg/dL Total Bilirubin 0.4 (0.0-1.0) mg/dL Direct Bilirubin 0.2 (0.0-0.5) mg/dL AST 14 (5-31) U/L ALT 14 (0-31) U/L Alkaline Phosphatase 61 (39-117) U/L Troponin I High Sens < 2.7 (<3.5-17.0) ng/L Total Protein 6.5 (6.5-8.0) g/dL Albumin 4.1 (3.5-5.0) g/dL Beta HCG, Quant < 2 mIU/mL Influenza Type A (PCR) NEGATIVE (Negative) Influenza Type B (PCR) NEGATIVE (Negative) RSV RNA Qual (PCR) NEGATIVE (Negative) SARS-CoV-2 RNA (RT-PCR) NEGATIVE (Negative) Independent Interpretation I performed an independent interpretation of an: EKG Interpretation: EKG at 12:42 shows normal sinus rhythm at 97 beats per minute. No significant change from previous EKGs Discharge Plan Discharge Clinical Impression: Dizziness, Lightheadedness Patient Disposition: Home, Self-Care Additional Instructions: Your testing in the emergency room today is reassuring. I do not think you were showing any signs of a stroke or a TIA. I do not think a CT scan would be helpful today. Please continue your regular medications and continue to monitor your blood pressure at home. Please follow up soon with your regular doctor to discuss your symptoms. Return to the emergency room if you feel significantly worse. Prescriptions: No Action aspirin 81 mg tablet,delayed release (DR/EC) 81 mg PO DAILY Qty: 90 3RF atenolol 25 mg tablet 25 mg PO DAILY 90 Days Qty: 90 0RF clonazepam 1 mg tablet 1 mg PO TID PRN (Reason: Skin Cleansing) fluoxetine 20 mg capsule 40 mg PO DAILY amlodipine 10 mg tablet 10 mg PO DAILY pantoprazole 40 mg tablet,delayed release (DR/EC) 40 mg PO BID calcium carbonate 600 mg calcium (1,500 mg) tablet 600 mg PO BID aripiprazole 15 mg tablet 7.5 mg PO DAILY atorvastatin 10 mg tablet 10 mg PO DAILY omega 5-obt-ilq-fish oil [Fish Oil] 1,200 (144-216) mg capsule PO folic acid 400 mcg tablet 0.4 mg PO DAILY Zyrtec 10 mg capsule 10 mg PO DAILY PRN cyanocobalamin (vitamin B-12) 250 mcg tablet PO ketoconazole 2 % shampoo topical betamethasone dipropionate 0.05 % ointment topical tretinoin 0.05 % cream topical BEDTIME cholecalciferol (vitamin D3) 25 mcg (1,000 unit) capsule 2,000 unit PO DAILY thiamine HCl (vitamin B1) 100 mg tablet See Rx Instructions PO DAILY Rx Instructions: 50mg 2 tabs orally daily; clobetasol 0.05 % ointment 1 appl topical BID hydrocortisone 2.5 % ointment topical betamethasone dipropionate 0.05 % lotion 1 appl topical DAILY fesoterodine 4 mg tablet extended release 24 hr 4 mg PO DAILY 30 Days Qty: 30 1RF Interventions: ED Discharge Assessment Last Done: 11/05/23 20:22 Discharge Date/Time: 11/05/23 20:23 Print Language: Malagasy
[2023-11-05 19:51] VITALS: BP 121/83; PULSE 89; RESP 17; TEMP 36.9; O2SAT 98
[2023-11-05 20:22] VITALS: BP 121/83; PULSE 89; RESP 17; TEMP 36.9; O2SAT 98
== END 2023-11-05 20:23 | disposition home or self-care (01) ==
PROVIDERS: Physician Assistant Medical; Emergency Provider Emergency Medicine; PCP Student in an Organized Health Care Education/Training Program
DX: R42 Dizziness and giddiness (principal); F17.210 Nicotine dependence, cigarettes, uncomplicated; F12.90 Cannabis use, unspecified, uncomplicated; E78.5 Hyperlipidemia, unspecified; Z86.73 Personal history of transient ischemic attack (TIA), and cerebral infarction without residual deficits; Z03.818 Encounter for observation for suspected exposure to other biological agents ruled out
CPT/HCPCS: 0241U; 80048; 80076; 83735; 84484; 84702; 85025; 85610; 93005; 99283

== ENCOUNTER → 2023-11-05 12:18 | Outpatient (BNV) | payer OTHER, SELFPAY | PROVIDERS: Emergency Provider Emergency Medicine; PCP Student in an Organized Health Care Education/Training Program; Visit Provider Internal Medicine Cardiovascular Disease | DX: R42 Dizziness and giddiness (principal); R94.31 Abnormal electrocardiogram [ECG] [EKG] | CPT/HCPCS: 93010 ==

== ENCOUNTER 2023-11-12 08:04 | Outpatient (REF) | payer OTHER, SELFPAY ==
[2023-11-12 14:24] LABS: Alanine Aminotransferase 11 U/L (0-31); Alkaline Phosphatase 53 U/L (39-117); Anion Gap 11 (12-20); Aspartate Amino Transferase 13 U/L (5-31); Bilirubin Direct 0.2 mg/dL (0.0-0.5); Bilirubin Total 0.6 mg/dL (0.0-1.0); Blood Urea Nitrogen 17 mg/dL (9-16); Carbon Dioxide 23 mmol/L (22-29); Chloride 107 mmol/L (96-108); Cholesterol 125 mg/dL (<200); Estimated Glomerular Filt Rate > 60; Glucose Random 88 mg/dL (60-115); HDL Cholesterol 55 mg/dL (>40); LDL Cholesterol Calculated 63 mg/dL (<100); Sodium 137 mmol/L (135-145); Total Protein 6.4 g/dL (6.5-8.0); Triglycerides 36 mg/dL (<150)
== END 2023-11-12 08:05 | disposition home or self-care (01) ==
LOC: HO.CHCLDS 08:04
PROVIDERS: Visit Provider Student in an Organized Health Care Education/Training Program
DX: I10 Essential (primary) hypertension (principal)
CPT/HCPCS: 36415; 80048; 80061; 80076

== ENCOUNTER 2023-12-17 14:37 | Outpatient (AMB) | payer OTHER, SELFPAY ==
[2023-12-17 14:55] VITALS: BP 108/62; PULSE 73; O2SAT 97; BMI 31.7
--- NOTE | 2023-12-17 14:55 | A.OFFVIS_ITS ---
Vital Signs 12/17/23 14:55 Height 5 ft 3 in Weight 179 lb BMI 31.7 BP 108/62 Blood Pressure Location Lt brachial Position Sitting Pulse 73 Pulse Source Pulse Oximeter Pulse Oximetry (%) 97 Oxygen Delivery Method Room Air Intake Visit Reasons: breathlessness on exertion Intake Note: pt is here as a new patient last seen 2019, and states she is having cardiology following with a holtor monitor but states she has short of breath all the time, sitting and lying down, she cannot get a good breath in. pt is on cpap since 2022, Ashia is DME Management Rep Required: No Allergies Penicillins Allergy (Severe, Verified 12/17/23 15:34) ITCHING/SWELLING doxycycline [DOXYCYCLINE] Allergy (Intermediate, Verified 12/17/23 15:34) SEVERE ITCHING, pruritis sulfamethoxazole [Bactrim] Allergy (Unknown, Verified 12/17/23 15:34) Unknown clindamycin Allergy (Verified 12/17/23 15:34) Gastrointestinal Upset famotidine Allergy (Verified 12/17/23 15:34) Anaphylaxis Sulfa (Sulfonamide Antibiotics) Allergy (Verified 12/17/23 15:34) Chest Pain Medication List - Last Reconciled 12/17/23 by Norma Phillips MD amlodipine 5 mg PO DAILY aripiprazole 7.5 mg PO DAILY aspirin 81 mg PO DAILY atorvastatin 10 mg PO DAILY betamethasone dipropionate 0.05% topical betamethasone dipropionate 0.05% 1 appl topical DAILY calcium carbonate 600 mg PO BID cetirizine (Zyrtec) 10 mg PO DAILY cholecalciferol (vitamin D3) 2,000 units PO DAILY clobetasol 0.05% 1 appl topical BID clonazepam 1 mg PO TID cyanocobalamin (vitamin B-12) mcg PO fluoxetine 20 mg PO DAILY folic acid 0.4 mg PO DAILY hydrocortisone 2.5% topical ketoconazole 2% topical omega 7-ulp-abq-fish oil 1,200 (144-216) mg (Fish Oil) caps PO pantoprazole 40 mg PO BID thiamine HCl (vitamin B1) 50mg 2 tabs orally daily; tretinoin 0.05% appl topical BEDTIME Do you need a note to return to daycare/school/sports/work: No HPI HPI breathlessness on exertion: Details: 48 YEARS OLD FEMALE PRESENTS ONCE AGAIN TO MY OFFICE WITH CHIEF COMPLAINT OF SHORTNESS OF BREATH OF NONSPECIFIC DESCRIPTIO.N SHE WAS SEEN BY ME INITIALLY IN 2019 WITH THE SIMILAR SYMPTOMS. AND HER PULMONARY WORKUP WELL C.DOMINGODIAC WORKUP FOR ALL NORMAL HIS SPIROMETRY IN THE OFFICE IN 2019 WA.S NORMAL COMPLETE PULMONARY FUNCTION TEST IN 2021 WAS ALSO NORMAL. CHEST X-RAY IN NOVEMBER 2022 WAS READ UNREMARKABLE. PATIENT DESCRIBES HER SHORTNESS OF BREATH OR DYSPNEA A SENSE OF NOT ABLE TO TAKE DEEP BREATH. SHE HAS NO CHEST PAIN, COUGH OR, WHEEZING. THIS PERCEPTION OF SHORTNESS OF BREATH IS SAME WHETHER SHE IS SITTING AND RESTING OR WALKING AROUND. SHE HAS BEEN, MODERATELY OBESE BUT DURING HER PREVIOUS OFFICE VISITS WOULD NOT AConnieLLOW US TO WEIGH HER TODAY SHE TELLS THAT SHE HAS LOST SIGNIFICANT AMOUNT OF WEIGHT DURING THE PAST YEAR. SHE HAD A POLYSOMNOGRAM STUDY IN 2021 WHICH WAS POSITIVE FOR MILD OBSTRUCTIVE SLEEP APNEA , AND PERIODIC LIMB MOVEMENTS. PATIENT HAS BEEN ON CPAP THERAPY SINCE THEN WITH AUTO PAP MODE, AND SHE CLAIMS THAT SHE SLEEPS GOOD. * SHE DOES HISTORY OF CHRONIC ANXIETY AND DEPRESSION AND OWN SO BIPOLAR DISORDER. SHE ADMITS THAT SHE HAS TENDENCY TO HAVE PANIC ATTACKS. [facility] Medical History (Updated 12/17/23 @ 16:23 by Norma Phillips MD) Anxiety Sleep apnea IBS (irritable bowel syndrome) Insomnia GERD (gastroesophageal reflux disease) Hyperlipidemia TIA (transient ischemic attack) Coronary artery disease Morbid obesity Overactive bladder Partial bowel obstruction Hospital discharge follow-up Abnormal CT of the abdomen Hyperkalemia Small bowel obstruction Lab test negative for COVID-19 virus History of urinary incontinence History of [place] (myocardial infarction) Rectal prolapse Arthritis Bipolar II disorder Back pain Optic neuritis Fibromyalgia Dyspnea Obesity Surgical History History of surgery History of carpal tunnel release of both wrists Hx of thumb surgery History of pubovaginal sling (10/19/19) H/O cystoscopy (06/08/19) History of total right knee replacement (06/2016) History of total left knee replacement (TKR) (11/2016) Family History Mother Afib Heart disease Father Cardiac failure Respiratory failure Brother Afib Brother Hypertension Brother Hypertension Son No problems noted. Social History Household Members: Family Housing: House Alcohol intake: current Alcohol intake frequency: holidays/special occasions only Comment: sleeping Patient Tobacco Use Status: Former Tobacco user Tobacco use type: Cigarette Cigarette Packs Per Day: 1 Cigarettes Per Day: 20 Years Smoked: 20 Second Hand Smoke Exposure: No Substance Use Type: Marijuana service: No Current occupational status: unemployed Review of Systems Const All systems reviewed & are unremarkable except as noted in HPI and below Reports body aches, Reports chills, Reports fatigue, Reports fever(s) and Denies headache(s) Eyes Reports no additional complaints, Denies itchy eyes and Denies loss of vision ENT Reports no additional complaints, Denies dysphagia, Denies vertigo and Denies headache(s) Card Denies chest pain, Denies rapid heart rate, Denies irregular heart rhythm, Reports dyspnea on exertion (mild , non specific ) and Denies slow heart rate Resp Reports as per HPI and Reports dyspnea on exertion (mild , non specific ) GI Denies bloating, Denies change in bowel habits, Denies change in stool yvan cter, Denies dysphagia, Denies heartburn, Denies nausea and Denies vomiting Denies difficulty voiding and Reports urinary incontinence (has had surgery for this ) Musc Reports abnormal gait (use cane ), Denies back pain, Denies myalgias, Reports arthralgias (mild pain in knees), Denies muscle weakness, Denies radiating pain into limb and Denies stiffness Skin/Breast Reports system reviewed and no additional complaints, except as documented Neuro Denies Abnormal speech present, Reports abnormal gait (use cane ), Denies vertigo, Denies headache(s), Denies focal weakness, Denies loss of vision, Denies memory loss, Denies restless legs and Denies tremor(s) Psych Denies anxiety, Denies depression, Denies difficulty concentrating, Denies irritability, Denies memory loss, Denies mood swings and Reports other (being treated for pshylogical issues) Endo Reports no additional complaints and Reports fatigue Omar/Lymph Reports no additional complaints Aller/Immun Reports no additional complaints and Denies itchy eyes Physical Exam Vital Signs: Last Vital Signs Pulse 73 12/17/23 14:55 BP 108/62 12/17/23 14:55 Pulse Ox 97 12/17/23 14:55 Oxygen Delivery Method Room Air 12/17/23 14:55 BMI result Body Mass Index 31.7 Const General: healthy appearing ( EXCEPT FOR BEING OVERWEIGHT.), comfortable, no acute distress, alert and awake Orientation/consciousness: patient oriented x3 HEENT Head: Yes normal to inspection General nose exam: No nasal polyps present and No nasal discharge present Face and sinus: Yes sinuses nontender Mouth: oropharynx normal Throat: Yes posterior oropharynx normal Eyes General: appearance normal, both eyes and all related structures Neck Neck: Yes normal visual inspection, Yes no lymphadenopathy, Yes trachea midline and Yes no JVD Thyroid: Thyroid normal Chest Chest palpation & inspection: normal inspection of the chest, normal palpation of entire chest wall and no tenderness Resp Effort & Inspection: normal respiratory effort Auscultation: clear to auscultation bilaterally, no crackles, no rhonchi and no wheezes Cardio Palpation: normal PMI Rate: regular rate Rhythm: regular rhythm Heart sounds: no gallops and no murmurs Peripheral pulses: Peripheral pulses 2+ throughout GI Palpation (GI): Soft to palpation, nontender, No hepatosplenomegaly present and no masses Auscultation: normal bowel sounds Back/Spine/Pelvis Thoracic/Lumbar Spine: thoracic and lumbar spine normal to inspection Skin General skin exam: no rashes or lesions noted Neuro General: patient oriented x3 and no focal motor deficits Cranial nerves: Yes CN's II-XII intact bilaterally Speech: No Abnormal speech present Extrem General: Yes normal to inspection, Yes no clubbing, cyanosis or edema and Yes no calf tenderness Psych Speech and movement: Normal speech and movement present Affect: Anxious affect present Office Procedures Spirometry Testing Spirometry Comments: In office spirometry completed with results given to Dr Phillips. [address]- Spirometry Results Reviewed Results Reviewed: SPIROMETRY PERFORMED IN THE OFFICE IT IS ESSENTIALLY NORMAL AND THERE IS NO EVIDENCE OF OBSTRUCTIVE OR RESTRICTIVE PATTERN. Assessment & Plan Assessment & Plan (1) Sleep apnea: Comment: PATIENT HAS BEEN OBESE . POLYSOMNOGRAM STUDY IN 2021 CONSISTENT WITH MILD OBSTRUCTIVE SLEEP APNEA. PATIENT HAS BEEN ON CPAP AT NIGHTTIME, ORDERED BY HER NEUROLOGIST, DR. MONTERROSO. CLAIMS THAT SHE HAS BEEN SLEEPING OKAY. SHE IS NOT BEING FOLLOWED ACTIVELY FOR THE CPAP USAGE, DME IS [facility]. Code(s): G47.30 - Sleep apnea, unspecified Category: Medical Plan: PATIENT WANTS ME TO CHECK WITH ASHIA, ABOUT HER COMPLIANCE, AND TO RENEW THE ORDERS IF SHE NEEDS SUPPLIES. AT SOME POINT SHE WANTS TO KNOW IF SHE STILL NEEDS TO USE THE CPAP. (2) Obesity: Comment: CLINICALLY SHE IS MODERATELY OBESE , BUT SHE WOULD NOT ALLOPW US TO RECORD HER WEIGHT. TODAY HER WEIGHT IS 179 LB BMI 31.7. THIS IS CONSISTENT WITH MODERATE OBESITY, PER HER CLAIMS SHE HAS LOST ABOUT 50-70 LB OF WEIGHT. Code(s): E66.9 - Obesity, unspecified Category: Medical Plan: ENCOURAGED TO KEEP ON LOSING WEIGHT. (3) Dyspnea: Comment: VERY NON SPECIFIC , I THINK MAY BE RELATED TO ANXIETY / PANIC DISORDER . SPIROMETRY IS ESSENTAILLY NORMAL NO RESTRICTIVE OR OBSTRUCTIVE PULM DISORDER . Code(s): R06.00 - Dyspnea, unspecified Category: Medical Plan: I HAD A CHATO .AND FRIENDLY DISCUSSION WITH HER EXPLAINED TO HER THAT THERE IS NO ANATOMICAL OR FUNCTIONAL ABNORMALITY OF HER LUNGS. EXPLAINED TO HER THAT HER FEELING OF SHORTNESS OF BREATH IS MORE PERCEPTIONAL THAN REAL. SHE AGREES THAT , YES IT MAY BE DUE TO PANIC ATTACKS. I HAVE ADVISED HER TO DO DEEP BREATHI NG EXERCISES WITH THE INCENTIVE SPIROMETRY DEVICE THAT I HAVE GIVEN TO HER FROM THE OFFICE. 10 TIMES, . T.I.D. ALSO ADVISED HER THAT WHENEVER SHE FEELS THAT SHE IS NOT GETTING ENOUG,H AIR SHE SHOULD RESOLVE TO DOING DEEP BREATHING EXERCISES , BREATH HOLDING FOR A FEW SECONDS AND THEN BREATHING OUT SLOWLY (4) Anxiety: Comment: PATIENT DOES HAVE ANXIETY DISORDER WITH MAJOR DEPRESSION AND ALSO ELEMENT OF BIPOLAR DISORDER. Code(s): F41.9 - Anxiety disorder, unspecified Category: Medical Plan: I ADVISED HER THAT SHE SHOULD CONTINUE TO TAKE HER MEDICATIONS PRESCRIBED. SHE SHOULD FOLLOW-UP WITH MENTAL HEALTH SERVICE Orders: Orders AMB Spirometry Testing Today R06.00 - Dyspnea, unspecified Coding Level of Care Code Est Pt Level 4 (52712) Diagnoses Sleep apnea G47.30 Obesity E66.9 Dyspnea R06.00 Anxiety F41.9 CPT Codes Spirometry - CPT: 69874- Spirometry ([id number])
== END 2023-12-17 15:59 | disposition home or self-care (01) ==
PROVIDERS: PCP Student in an Organized Health Care Education/Training Program; Referring Provider Student in an Organized Health Care Education/Training Program; Visit Provider Internal Medicine
DX: G47.30 Sleep apnea, unspecified (principal); E66.9 Obesity, unspecified; R06.00 Dyspnea, unspecified; F41.9 Anxiety disorder, unspecified
CPT/HCPCS: 94010; 99214

== ENCOUNTER → 2023-12-17 14:37 | Outpatient (BNVA) | payer OTHER, SELFPAY | PROVIDERS: PCP Student in an Organized Health Care Education/Training Program; Referring Provider Student in an Organized Health Care Education/Training Program; Visit Provider Internal Medicine | DX: R06.02 Shortness of breath (principal); G47.30 Sleep apnea, unspecified; E66.9 Obesity, unspecified; R06.00 Dyspnea, unspecified; F41.9 Anxiety disorder, unspecified; Z87.891 Personal history of nicotine dependence; Z68.31 Body mass index [BMI] 31.0-31.9, adult | CPT/HCPCS: 94010; 99212 ==

== ENCOUNTER 2024-02-13 10:36 | Outpatient (AMB) | payer OTHER, SELFPAY ==
--- NOTE | 2024-02-13 10:38 | A.OFFVIS_ITS ---
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: Child Development Specialist Present (Swapna) Allergies Penicillins Allergy (Severe, Verified 02/13/24 10:39) ITCHING/SWELLING doxycycline [DOXYCYCLINE] Allergy (Intermediate, Verified 02/13/24 10:39) SEVERE ITCHING, pruritis penicillin G Allergy (Unknown, Verified 02/13/24 10:47) Unknown rosuvastatin [From Crestor] Allergy (Unknown, Verified 02/13/24 10:47) Unknown tetracycline Allergy (Unknown, Verified 02/13/24 10:47) Unknown clindamycin Allergy (Verified 02/13/24 10:39) Gastrointestinal Upset famotidine Allergy (Verified 02/13/24 10:39) Anaphylaxis Sulfa (Sulfonamide Antibiotics) Allergy (Verified 02/13/24 10:39) Chest Pain escitalopram [From Lexapro] Adverse Reaction (Unknown, Verified 02/13/24 10:47) Palpitations oseltamivir [From Tamiflu] Adverse Reaction (Unknown, Verified 02/13/24 10:47) Palpitations rabeprazole Adverse Reaction (Unknown, Verified 02/13/24 10:47) Chest Pain nirmatrelvir [From Paxlovid] Adverse Reaction (Verified 02/13/24 10:47) Headache ritonavir [From Paxlovid] Adverse Reaction (Verified 02/13/24 10:47) Headache Is last menstrual period known: Yes Last menstrual period: 02/02/24 HPI Comments Details: She is a premenopausal woman presenting for new patient annual examination. Doing well with concerns: OAB, has a stimulator in place, she reports it is not working well. She tries to eat healthy and stays active with exercise. Regular monthly menses x3-4d, heavy at times, and closely spaced- on and off. Hx. of PCOS. Labs 11/05/2023-H/H-13.1/40.9, 03/05/2023 TSH 0.41. Currently is not sexually active in many years. She denies vaginal itching and irritation.STI screening offered; she declined. Denies family history of breast, ovarian or colon cancer. Last pap smear 2015, negative. Mammogram: 2023, hx. left breast cyst. [facility] Medical History Anxiety Sleep apnea IBS (irritable bowel syndrome) Insomnia GERD (gastroesophageal reflux disease) Hyperlipidemia TIA (transient ischemic attack) Coronary artery disease Morbid obesity Overactive bladder Partial bowel obstruction Hospital discharge follow-up Abnormal CT of the abdomen Hyperkalemia Small bowel obstruction Lab test negative for COVID-19 virus History of urinary incontinence History of DE (myocardial infarction) Rectal prolapse Arthritis Bipolar II disorder Back pain Optic neuritis Fibromyalgia Dyspnea Obesity Surgical History History of surgery History of carpal tunnel release of both wrists Hx of thumb surgery History of pubovaginal sling (10/19/19) H/O cystoscopy (06/08/19) History of total right knee replacement (06/2016) History of total left knee replacement (TKR) (11/2016) Family History Mother Afib Heart disease Father Cardiac failure Respiratory failure Brother Afib Brother Hypertension Brother Hypertension Son No problems noted. Social History Household Members: Family Housing: House Alcohol intake: current Alcohol intake frequency: holidays/special occasions only Comment: sleeping Patient Tobacco Use Status: Former Tobacco user Tobacco use type: Cigarette Cigarette Packs Per Day: 1 Cigarettes Per Day: 20 Years Smoked: 20 Second Hand Smoke Exposure: No Substance Use Type: Marijuana service: No Current occupational status: unemployed Female Reproductive History Menstrual Duration of menses: 6-7 days Date of last menstrual period: 02/02/24 Total pregnancies: 1 Full term: 1 Number of Living Children: 1 Date of last pap smear: 09/11/20 (neg pap and hpv) Date of Mammogram: 05/09/23 (Birad 0) History of abnormal mammogram: Yes (05/30/23 Birad 2) Review of Systems Const All systems reviewed & are unremarkable except as noted in HPI and below Reports as per HPI Eyes Reports no additional complaints ENT Reports no additional complaints Card Reports no additional complaints Resp Reports no additional complaints GI Reports as per HPI and Reports no additional complaints Reports as per HPI Musc Reports no additional complaints Skin/Breast Reports as per HPI Neuro Reports no additional complaints Psych Reports no additional complaints Endo Reports no additional complaints Omar/Lymph Reports no additional complaints Aller/Immun Reports no additional complaints Physical Exam Vital Signs: Last Vital Signs BP 100/60 02/13/24 10:39 BMI result Body Mass Index 31.7 Const General: cooperative, healthy appearing, no acute distress, well developed and alert Orientation/consciousness: patient oriented x3 HEENT Head: Yes normal to inspection Eyes General: appearance normal, both eyes and all related structures Neck Neck: Yes normal visual inspection Thyroid: Thyroid normal Chest Chest palpation & inspection: normal inspection of the chest and other (no puckering, dimpling, peau de orange, retraction, discharge, masses) Breast/axilla inspection: normal inspection of the breasts Breast/axilla palpation: normal palpation of the breasts Resp Effort & Inspection: normal respiratory effort GI Inspection: Yes normal to inspection Palpation (GI): Soft to palpation Rectal Exam - Female: deferred General: Yes bladder normal to palpation External Female Exam: normal external appearance and normal appearance of the urethra Speculum Exam - Vagina: normal appearance of the vagina, normal palpation and normal vaginal discharge Speculum Exam - Cervix: normal appearance of the cervix and normal palpation Bimanual exam- vagina & uterus: normal bimanual exam, normal palpation, uterine size normal, bladder normal to palpation, normal palpation and non-tender Bimanual Exam- Adnexa, other: no masses Skin General skin exam: no rashes or lesions noted Rashes: no rashes Neuro General: patient oriented x3 Cognition (Neuro): normal cognition Extrem General: Yes normal to inspection Psych Attitude: cooperative Thought process: Normal thought process present Assessment & Plan Assessment & Plan (1) Encounter for well woman exam with routine gynecological exam: Code(s): Z01.419 - Encounter for gynecological examination (general) (routine) without abnormal findings Category: Medical (2) Abnormal uterine bleeding (AUB): Code(s): N93.9 - Abnormal uterine and vaginal bleeding, unspecified Plan Discussed: Current recommendations for pap smears per ASCCP guidelines. Pap obtained. BV panel obtained. Breast awareness and periodic breast exams. Maintain a healthy lifestyle including a well balanced diet and routine exercise. Mammogram yearly-has follow up in April. Advised if any left breast pain to notify the office sooner for follow up care. Pelvic ultrasound to be scheduled, advised endometrial biopsy due to abnormal uterine bleeding to rule out any atypical cells, precancer or cancer. Preprocedure planning reviewed advised to eat and drink and take 2 Tylenol (unable to take Advil), 1 hour before her procedure. Monitor menstrual cycles, report any unscheduled bleeding, bleeding episodes <24 days apart or heavy/prolonged menstrual bleeding. Call the office for a follow up for any concerns. Perimenopause versus menopause symptoms and diagnosis. Patient verbalizes understanding and agrees to the plan of care. She was given opportunity to ask questions and all questions were answered to the best of my ability. RTO in one year for annual copy director examination. This note is constructed using voice recognition software. While every effort has been made to ensure accuracy, head char filter tank tender errors may have been included. Orders: Orders PAP + HPV E6/E7 rfx 18/45 Today N93.9 - Abnormal uterine and vaginal bleeding, unspecified, Z01.419 - Encounter for gynecological examination (general) (routine) without abnormal findings Bacterial Vaginosis Panel Today N93.9 - Abnormal uterine and vaginal bleeding, unspecified US pelvic and transvaginal Today N93.9 - Abnormal uterine and vaginal bleeding, unspecified Coding Level of Care Code New Pt Prev Care 40-64y(25497) Diagnoses Encounter for well woman exam with routine gynecological exam Z01.419 Abnormal uterine bleeding (AUB) N93.9
[2024-02-13 10:39] VITALS: BP 100/60; BMI 31.7
== END 2024-02-13 11:26 | disposition home or self-care (01) ==
PROVIDERS: PCP Student in an Organized Health Care Education/Training Program; Visit Provider Advanced Practice Midwife
DX: Z01.419 Encounter for gynecological examination (general) (routine) without abnormal findings (principal); N93.9 Abnormal uterine and vaginal bleeding, unspecified
CPT/HCPCS: 99386

== ENCOUNTER 2024-02-20 08:35 | Outpatient (AMB) | payer OTHER, SELFPAY ==
--- NOTE | 2024-02-20 08:45 | MHC.OFFVIS ---
Intake Visit Reasons: 5m/PVR Intake Note: Patient is present for PVR Follow Up Urology Med: Vitamin B1, Vitamin D3, Toviaz Antibiotic Allergy: Penicillin, Doxycycline, Penicillin, Tetracycline, Clindamycin, Sulfa Blood Thinner: Aspirin Last PVR:0ML Todays PVR: 0ml Patient states that she has turned off her Interstim device since October 2023 She reports that the device has been terrible and Ineffective for her She states the first Interstim device that was placed in 2022 did great but at that time the device wires broke this device is not effective Polysomnographic Technician Required: No Accompanied by: Self / Same As Patient Allergies Penicillins Allergy (Severe, Verified 02/20/24 08:45) ITCHING/SWELLING doxycycline [DOXYCYCLINE] Allergy (Intermediate, Verified 02/20/24 08:45) SEVERE ITCHING, pruritis penicillin G Allergy (Unknown, Verified 02/20/24 08:45) Unknown rosuvastatin [From Crestor] Allergy (Unknown, Verified 02/20/24 08:45) Unknown tetracycline Allergy (Unknown, Verified 02/20/24 08:45) Unknown clindamycin Allergy (Verified 02/20/24 08:45) Gastrointestinal Upset famotidine Allergy (Verified 02/20/24 08:45) Anaphylaxis Sulfa (Sulfonamide Antibiotics) Allergy (Verified 02/20/24 08:45) Chest Pain escitalopram [From Lexapro] Adverse Reaction (Unknown, Verified 02/20/24 08:45) Palpitations oseltamivir [From Tamiflu] Adverse Reaction (Unknown, Verified 02/20/24 08:45) Palpitations rabeprazole Adverse Reaction (Unknown, Verified 02/20/24 08:45) Chest Pain nirmatrelvir [From Paxlovid] Adverse Reaction (Verified 02/20/24 08:45) Headache ritonavir [From Paxlovid] Adverse Reaction (Verified 02/20/24 08:45) Headache HPI Comments Details: Niya is a pleasant female. She is a patient of Dr. Torre. She is seen for the following urologic conditions - stress incontinence - urinary urgency Six-month review Has turned off InterStim device At this point recommend urodynamics Dr. Falcon She would like to try medications again Had some concerns with Myrbetriq but did do well with combination Can restart Myrbetriq 25 mg daily with oxybutynin 15 mg ER Urinary urgency Prior prolapse repair with Dr Hannah Eckert Failed conservative therapy medications - Myrbetriq, VESIcare, tolterodine, oxybutynin, and Gemtesa InterStim previously 08/18 InterStim revision - primary effect is rectal flutter when turned on Symptoms controlled with InterStim and 50 mg of Myrbetriq daily, and Oxybutynin 15mg ER Stress urinary incontinence Previous evaluation with Dr. Hendricks Urethral mesh had been placed by an outside urologist Dr. Hendricks had removed this mesh uses become infected and replace this with abdominal fascia CT scan performed mild distal abdominal subcutaneous changes consistent with procedure No fever, erythema, discharge PFSH Medical History Anxiety Sleep apnea IBS (irritable bowel syndrome) Insomnia GERD (gastroesophageal reflux disease) Hyperlipidemia TIA (transient ischemic attack) Coronary artery disease Morbid obesity Overactive bladder Partial bowel obstruction Hospital discharge follow-up Abnormal CT of the abdomen Hyperkalemia Small bowel obstruction Lab test negative for COVID-19 virus History of urinary incontinence History of ND (myocardial infarction) Rectal prolapse Arthritis Bipolar II disorder Back pain Optic neuritis Fibromyalgia Dyspnea Obesity Surgical History History of surgery History of carpal tunnel release of both wrists Hx of thumb surgery History of pubovaginal sling (10/19/19) H/O cystoscopy (06/08/19) History of total right knee replacement (06/2016) History of total left knee replacement (TKR) (11/2016) Family History Mother Afib Heart disease Father Cardiac failure Respiratory failure Brother Afib Brother Hypertension Brother Hypertension Son No problems noted. Social History Household Members: Family Housing: House Alcohol intake: current Alcohol intake frequency: holidays/special occasions only Comment: sleeping Patient Tobacco Use Status: Former Tobacco user Tobacco use type: Cigarette Cigarette Packs Per Day: 1 Cigarettes Per Day: 20 Years Smoked: 20 Second Hand Smoke Exposure: No Substance Use Type: Marijuana service: No Current occupational status: unemployed Review of Systems Const Denies chills and Denies fever(s) Card Reports no additional complaints and Denies syncope Resp Denies cough GI Denies abdominal pain and Denies heartburn Reports as per HPI and Denies change in libido Neuro Denies syncope Psych Denies change in libido Endo Denies change in libido Physical Exam Const General: cooperative, healthy appearing, comfortable and no acute distress Orientation/consciousness: patient oriented x3 HEENT Face and sinus: Yes normal facial exam Mouth: moist mucous membranes Neck Neck: Yes normal visual inspection, Yes full ROM and Yes trachea midline Chest Chest palpation & inspection: normal inspection of the chest Resp Effort & Inspection: normal respiratory effort, able to speak in complete sentences and no respiratory distress GI Inspection: Yes normal to inspection Back/Spine/Pelvis Cervical Spine: normal cervical lordosis Thoracic/Lumbar Spine: thoracic and lumbar spine normal to inspection Skin General skin exam: no rashes or lesions noted Neuro General: patient oriented x3, gait normal, tone normal and moves all extremities Extrem General: Yes normal to inspection and Yes capillary refill normal Office Procedures Post Void Residual Post Residual Void Post Void Residual (PVR): 0 15595-Gwtm Void Residual by ultrasound Assessment & Plan Assessment & Plan (1) 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 Falcon for assessment of urodynamics and further management Orders: Orders AMB Post Void Residual by ultrasound Today N32.81 - Overactive bladder Patient Instructions: Imaging studies, laboratory and physical exam results were discussed and reviewed in detail. No major barriers to patient understanding were identified. An opportunity to ask questions regarding the treatment plan was provided. All questions were answered. The patient expressed understanding and agreement with the above treatment plan. The patient is aware they should contact our office by phone for worsening of their current condition or the appearance of new urologic symptoms. Compliance is encouraged with any medications and followup testing that is ordered. It is a privilege to participate in the urologic care of your patient. If you have any questions or concerns regarding treatment for the above conditions, or other urologic issues, please do not hesitate to contact me. The office telephone contact is [phone]. This note is constructed using voice recognition software. While every effort has been made to ensure accuracy cash applications analyst errors may have been included. Yours sincerely, Dr Osiel Anne MD, [facility] - Urology Providers of Expert, Compassionate Care for the Genitourinary System Coding Level of Care Code Est Pt Level 4 (42131) Diagnoses Bladder hypertonicity N31.8 CPT Codes Post Residual Void - PVR CPT Code: 80752-Ryxx Void Residual by ultrasound ([id number])
== END 2024-02-20 09:22 | disposition home or self-care (01) ==
PROVIDERS: PCP Student in an Organized Health Care Education/Training Program; Visit Provider Urology
DX: N31.8 Other neuromuscular dysfunction of bladder (principal)
CPT/HCPCS: 99214

== ENCOUNTER 2024-02-20 11:14 | Outpatient (REF) | payer OTHER, SELFPAY | END 2024-02-20 11:15 | disposition home or self-care (01) | LOC: HO.US 11:14 | PROVIDERS: PCP Student in an Organized Health Care Education/Training Program; Visit Provider Advanced Practice Midwife | DX: N93.9 Abnormal uterine and vaginal bleeding, unspecified (principal); N31.8 Other neuromuscular dysfunction of bladder | CPT/HCPCS: 51798; 76830; 76856; 99212 ==

== ENCOUNTER 2024-04-27 08:02 | Outpatient (AMB) | payer OTHER, SELFPAY ==
[2024-04-27 08:10] VITALS: BP 112/74; PULSE 80; TEMP 36.8; O2SAT 97
--- NOTE | 2024-04-27 08:10 | AM.OFFWIN_ITS ---
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 Patient Tobacco Use Status: Former Tobacco user Allergies Penicillins Allergy (Severe, Verified 04/27/24 08:22) ITCHING/SWELLING doxycycline [DOXYCYCLINE] Allergy (Intermediate, Verified 04/27/24 08:22) SEVERE ITCHING, pruritis penicillin G Allergy (Unknown, Verified 04/27/24 08:22) Unknown rosuvastatin [From Crestor] Allergy (Unknown, Verified 04/27/24 08:22) Unknown tetracycline Allergy (Unknown, Verified 04/27/24 08:22) Unknown clindamycin Allergy (Verified 04/27/24 08:22) Gastrointestinal Upset famotidine Allergy (Verified 04/27/24 08:22) Anaphylaxis Sulfa (Sulfonamide Antibiotics) Allergy (Verified 04/27/24 08:22) Chest Pain escitalopram [From Lexapro] Adverse Reaction (Unknown, Verified 04/27/24 08:22) Palpitations oseltamivir [From Tamiflu] Adverse Reaction (Unknown, Verified 04/27/24 08:22) Palpitations rabeprazole Adverse Reaction (Unknown, Verified 04/27/24 08:22) Chest Pain nirmatrelvir [From Paxlovid] Adverse Reaction (Verified 04/27/24 08:22) Headache ritonavir [From Paxlovid] Adverse Reaction (Verified 04/27/24 08:22) Headache Do you need a note to return to daycare/school/sports/work: No HPI HPI Comments History of Present Illness Details History of Present Illness - The patient is a 49-year-old female pr esenting with RUQ and LUQ abdominal pain. - She states pain was much worse a coupl e weeks ago but it has been getting better. - she tells me she has a history of fatt y liver and partial bowel obstruction as well as pancreatitis. - she states she was having some vomitin g but it has subsided over the last week. - she denies any diarrhea, change in her bowel habits or blood in her urine or change in her urinary habits. - she denies any fevers - she tells me her weight has fluctuated several times over the last few years and that 3 weeks ago, she decided to start eating healthy again, and she has since last 10-15 lb. Around this time, is when her abdominal pain started improving Physical Exam General: Cooperative, healthy appearing, comfortable, no acute distress and well developed Orientation: Patient oriented x3 Limitations: No limitations Head: Normal to inspection Ears: Hearing grossly normal bilaterally Nose: Normal external nose present Face and sinus: normal facial exam Eyes: Appearance normal, both eyes and all related structures Neck: Normal visual inspection and Yes full ROM Respiratory: Normal respiratory effort and able to speak in complete sentences. GI: Soft, non tender, normal bowel sounds Neuro: Patient oriented x3 Extremities: Normal to inspection [facility] Medical History Anxiety Sleep apnea IBS (irritable bowel syndrome) Insomnia GERD (gastroesophageal reflux disease) Hyperlipidemia TIA (transient ischemic attack) Coronary artery disease Morbid obesity Overactive bladder Partial bowel obstruction Hospital discharge follow-up Abnormal CT of the abdomen Hyperkalemia Small bowel obstruction Lab test negative for COVID-19 virus History of urinary incontinence History of ND (myocardial infarction) Rectal prolapse Arthritis Bipolar II disorder Back pain Optic neuritis Fibromyalgia Dyspnea Obesity Surgical History History of surgery History of carpal tunnel release of both wrists Hx of thumb surgery History of pubovaginal sling (10/19/19) H/O cystoscopy (06/08/19) History of total right knee replacement (06/2016) History of total left knee replacement (TKR) (11/2016) Family History Mother Afib Heart disease Father Cardiac failure Respiratory failure Brother Afib Brother Hypertension Brother Hypertension Son No problems noted. Social History Household Members: Family Housing: House Alcohol intake: current Alcohol intake frequency: holidays/special occasions only Comment: sleeping Patient Tobacco Use Status: Former Tobacco user Tobacco use type: Cigarette Cigarette Packs Per Day: 1 Cigarettes Per Day: 20 Years Smoked: 20 Second Hand Smoke Exposure: No Substance Use Type: Marijuana service: No Current occupational status: unemployed Review of Systems Const All systems reviewed & are unremarkable except as noted in HPI and below Physical Exam Vital Signs: Last Vital Signs Temp 98.2 F 04/27/24 08:10 Pulse 80 04/27/24 08:10 BP 112/74 04/27/24 08:10 Pulse Ox 97 04/27/24 08:10 Oxygen Delivery Method Room Air 04/27/24 08:10 Assessment & Plan Assessment & Plan (1) Abdominal pain in female: Code(s): R10.9 - Unspecified abdominal pain Plan: - Previously experienced tenderness is no longer present during physical examination, physical exam is benign, VSS and pt well appearing. - The resolution of symptoms likely due to dietary changes, but additional diagnostic testing is suggested, including laboratory evaluations and an a bdominal ultrasound. Recommended she call her primary care doctor for labs and an abdominal ultrasound. However, if her pain does get worse, she was told to go to the emergency department for an emergent workup. Patient was informed and verbally consented to the use of an ambient scribe for clinic note documentation during this visit. . Coding Level of Care Code New Pt Level 4 (01789) Diagnoses Abdominal pain in female R10.9
== END 2024-04-27 08:53 | disposition home or self-care (01) ==
PROVIDERS: PCP Student in an Organized Health Care Education/Training Program; Visit Provider Physician Assistant
DX: R10.9 Unspecified abdominal pain (principal)

== ENCOUNTER 2024-04-27 10:03 | Emergency (ER) | payer OTHER, SELFPAY ==
--- NOTE | ~2024-04-27 | US_ITS ---
CLINICAL HISTORY: RUQ pain US abdomen limited. COMPARISON: US abdomen dated 06/26/22 at 08:[address] abdomen and pelvis dated 06/17/20 at 18:49 EST Technique: Real time sonographic imaging with Doppler imaging was performed by the feather mixer. Multiple client services representative static images were saved for review. FINDINGS: The visualized portions of the pancreas appear normal. The liver has normal echotexture. The main portal vein is antegrade. Liver, right lobe size: 9.6 cm, diminutive The gallbladder is normal in size. No cholelithiasis or sludge identified. There is a negative sonographic Jang's sign. Gallbladder wall: 2 mm, normal. Common bile duct: 2 mm, normal. Right kidney: Cortical medullary differentiation is maintained. No calculus or focal parenchymal abnormality identified. No hydronephrosis. Right kidney length: 12.4 cm No free intraperitoneal fluid identified. IMPRESSION: 1. No cause for patient's symptoms identified. No evidence of cholecystitis. No evidence of right renal obstruction. This document has been electronically signed by: David Tapia MD on 04/27/2024 19:26:10
[2024-04-27 10:27] VITALS: BP 126/70; PULSE 88; RESP 16; TEMP 36.8; O2SAT 98; BMI 36.1
[2024-04-27 10:43] LABS: MANUAL DIFF FLAG NO
[2024-04-27 10:45] LABS: Basophils Absolute Auto 0.1 X10*3/uL (0.0-0.2); Basophils Percent Auto 0.8 % (0-2); Eosinophils Percent Auto 0.6 % (0-4); Hematocrit 39.8 % (37.0-47.0); Hemoglobin 13.4 g/dl (12.0-16.0); Imm Gran Abs Auto 0.01 X10*3/uL (0.00-0.03); Imm Gran Pct Auto 0.2 % (0.0-0.4); Lymphocytes Absolute Auto 1.3 X10*3/uL (1.2-4.9); Lymphocytes Percent Auto 20.5 % (20-40); Mean Corpuscular HGB Conc 33.7 g/dl (31.0-35.0); Mean Corpuscular Hemoglobin 28.2 pg (27.0-33.0); Mean Corpuscular Volume 83.8 fL (80.0-98.0); Mean Platelet Volume 11.1 fL (9.4-12.3); Monocytes Absolute Auto 0.5 X10*3/uL (0.1-1.2); Monocytes Percent Auto 8.2 % (2-11); Neutrophils Absolute Auto 4.4 x10*3/uL (2.0-8.3); Neutrophils Percent Auto 69.7 % (45-73); Platelet Count 269 X10*3/uL (160-400); Red Blood Count 4.75 X10*6/uL (4.20-5.50); Red Cell Distribution Width 12.8 % (11.0-16.0); White Blood Count 6.3 X10*3/uL (4.8-10.8)
[2024-04-27 11:02] LABS: Alanine Aminotransferase 10 U/L (0-31); Albumin Level 4.2 g/dL (3.5-5.0); Alkaline Phosphatase 58 U/L (39-117); Anion Gap 11 (12-20); Aspartate Amino Transferase 17 U/L (5-31); Bilirubin Total 0.4 mg/dL (0.0-1.0); Blood Urea Nitrogen 11 mg/dL (9-16); Calcium 8.8 mg/dL (8.4-10.2); Carbon Dioxide 22 mmol/L (22-29); Chloride 112 mmol/L (96-108); Creatinine Clr Calc Pharmacy 98.9; Estimated Glomerular Filt Rate > 60; Glucose Random 90 mg/dL (60-115); Potassium 3.9 mmol/L (3.3-5.1); Sodium 141 mmol/L (135-145); Total Protein 6.8 g/dL (6.5-8.0)
[2024-04-27 15:27] VITALS: BP 132/84; PULSE 94; RESP 18; TEMP 36.6; O2SAT 98
--- NOTE | 2024-04-27 16:34 | ED.ABDPAIN ---
HPI - Abdominal Pain General Chief Complaint: Abdominal Pain Stated Complaint: Upper abd pain Time Seen by Provider: 04/27/24 16:34 Source: patient Mode of arrival: ambulatory Limitations: no limitations History of Present Illness ED Provider: LUIS F LERNER PA-C HPI narrative: 49 year old female with pmhx significant for arthritis, bipolar, fibromyalgia, mi, hyperkalemia, obesity, overactive bladder presents to the ED today for evaluation of right upper and left uper quadrant abdominal discomfort x weeks. She states the pain was excruciating a few weeks ago and has now dissipated into a mild discomfort. She also had nausea and vomiting at that time which has since resolved. Pain will occasionally radiate to her b/l back. Reports reading on her medical record that she was diagnosed with pancreatitis at some point in the past. She endorses concern there may be an issue with her pancreas. She presented to today requesting ultrasound and was sent to the ED for this to be performed. Related Data Home Medications ?Medication ?Instructions ?Recorded ?Confirmed pantoprazole 40 mg tablet,delayed 40 mg PO BID 06/04/21 07/02/23 release aripiprazole 15 mg tablet 7.5 mg PO DAILY 04/30/22 07/02/23 atorvastatin 10 mg tablet 10 mg PO DAILY 05/01/22 07/02/23 folic acid 400 mcg tablet 0.4 mg PO DAILY 12/25/22 07/02/23 omega 2-apx-dwp-fish oil 1,200 mg cap PO 12/25/22 07/02/23 (144 mg-216 mg) capsule (Fish Oil) betamethasone dipropionate 0.05 % topical 01/24/23 07/02/23 topical ointment ketoconazole 2 % shampoo topical 01/24/23 07/02/23 tretinoin 0.05 % topical cream appl topical BEDTIME 01/24/23 07/02/23 betamethasone dipropionate 0.05 % 1 appl topical DAILY 02/14/23 07/02/23 lotion cholecalciferol (vitamin D3) 25 2,000 unit PO DAILY 02/14/23 07/02/23 mcg (1,000 unit) capsule clobetasol 0.05 % topical ointment 1 appl topical BID 02/14/23 07/02/23 hydrocortisone 2.5 % topical topical 02/14/23 07/02/23 ointment cetirizine 10 mg capsule (Zyrtec) 10 mg PO DAILY 12/17/23 clonazepam 1 mg tablet 1 mg PO TID 12/17/23 cetirizine 10 mg tablet 10 mg PO QAM 02/20/24 cyanocobalamin (vitamin B-12) 500 500 mcg PO DAILY 02/20/24 mcg tablet losartan 25 mg tablet 25 mg PO DAILY 02/20/24 minoxidil 2.5 mg tablet mg PO 02/20/24 thiamine HCl (vitamin B1) 50 mg 100 mg PO QAM 02/20/24 tablet fluoxetine 20 mg capsule 40 mg PO DAILY 04/27/24 Previous Rx's ?Medication ?Instructions ?Recorded aspirin 81 mg tablet,delayed 81 mg PO DAILY #90 tabs 06/26/20 release mirabegron 25 mg tablet,extended 25 mg PO DAILY #30 tabs 04/23/24 release 24 hr (Myrbetriq) oxybutynin chloride 15 mg 15 mg PO DAILY #30 tabs 04/23/24 tablet,extended release 24 hr nitrofurantoin macrocrystal 100 mg 100 mg PO BID 5 days #10 caps 04/27/24 capsule Allergies Allergy/AdvReac Type Severity Reaction Status Date / Time Penicillins Allergy Severe ITCHING/SWE Verified 04/27/24 10:29 LLING doxycycline [DOXYCYCLINE] Allergy Intermediate SEVERE Verified 04/27/24 10:29 ITCHING, pruritis penicillin G Allergy Unknown Unknown Verified 04/27/24 10:29 rosuvastatin [From Crestor] Allergy Unknown Unknown Verified 04/27/24 10:29 tetracycline Allergy Unknown Unknown Verified 04/27/24 10:29 clindamycin Allergy Gastrointestinal Verified 04/27/24 10:29 Upset famotidine Allergy Anaphylaxis Verified 04/27/24 10:29 Sulfa (Sulfonamide Allergy Chest Pain Verified 04/27/24 10:29 Antibiotics) escitalopram [From Lexapro] AdvReac Unknown Palpitation Verified 04/27/24 10:29 s oseltamivir [From Tamiflu] AdvReac Unknown Palpitation Verified 04/27/24 10:29 s rabeprazole AdvReac Unknown Chest Pain Verified 04/27/24 08:22 nirmatrelvir [From Paxlovid] AdvReac Headache Verified 12/31/24 08:22 ritonavir [From Paxlovid] AdvReac Headache Verified 04/27/24 08:22 Review of Systems Review of Systems Constitutional: No fever, chills, fatigue, night sweats, weight changes ENT/Mouth: No ear pain, hearing loss, nasal congestion, sinus pain, rhinorrhea, sore throat Eyes: No eye pain, swelling, redness, vision changes, discharge Cardio: No chest pain, palpitations, PILLAI, orthopnea, peripheral edema Pulm: No SOB, cough, sputum, wheezing, dyspnea, hemoptysis GI: No nausea, vomiting, hematemesis, abdominal pain, diarrhea, constipation, hematochezia, melena, +abd pain : No irregular bleeding, dysuria, frequency, urgency, hesitancy, hematuria, flank pain, urinary flow changes, urinary incontinence or retention MSK: No back pain, neck pain, joint pain, myalgias Skin: No lesions, rashes Neuro: No weakness, numbness, paresthesias, LOC, dizziness, headache Psych: No anxiety/panic, depression, SI/HI, AH/VH All other systems reviewed and are negative. [facility] Past Medical History Attestation statement: The following information was validated with the patient. Source: old records reviewed and nursing notes reviewed Medical History Anxiety Sleep apnea IBS (irritable bowel syndrome) Insomnia GERD (gastroesophageal reflux disease) Hyperlipidemia TIA (transient ischemic attack) Coronary artery disease Morbid obesity Overactive bladder Partial bowel obstruction Hospital discharge follow-up Abnormal CT of the abdomen Hyperkalemia Small bowel obstruction Lab test negative for COVID-19 virus History of urinary incontinence History of NV (myocardial infarction) Rectal prolapse Arthritis Bipolar II disorder Back pain Optic neuritis Fibromyalgia Dyspnea Obesity Surgical History History of surgery History of carpal tunnel release of both wrists Hx of thumb surgery History of pubovaginal sling (10/19/19) H/O cystoscopy (06/08/19) History of total right knee replacement (06/2016) History of total left knee replacement (TKR) (11/2016) Family History Family History Mother Afib Heart disease Father Cardiac failure Respiratory failure Brother Afib Brother Hypertension Brother Hypertension Son No problems noted. Social History Social History Household Members: Family Housing: House Alcohol intake: current Alcohol intake frequency: holidays/special occasions only Comment: sleeping Patient Tobacco Use Status: Former Tobacco user Tobacco use type: Cigarette Cigarette Packs Per Day: 1 Cigarettes Per Day: 20 Years Smoked: 20 Second Hand Smoke Exposure: No Substance Use Type: Marijuana service: No Current occupational status: unemployed Physical Exam ED Vital Signs: Vital Signs - 24 hr 04/27/24 15:27 Temperature 97.9 F Pulse Rate 94 Respiratory Rate 18 Blood Pressure 132/84 Pulse Oximetry 98 Oxygen Delivery Method Room Air BMI result Body Mass Index 36.1 vital signs stable General: Well appearing, in no acute distress. Skin: Warm, dry, intact. No rashes or lesions. Head: Normocephalic, atraumatic. EENT: Hearing is intact b/l. Conjunctiva clear. PERRLA. EOM intact. Moist mucous membranes.? Neck: Supple without LAD Cardiac: Chest wall symmetric. RRR Lungs: Normal respiratory effort without accessory muscle use. CTA bilaterally. No rales, rhonchi, or wheezes.? Abdomen: obese abd, soft, non-tender, non-distended. No rebound tenderness or guarding. Positive BS x4. no cvat. negative jang sign. negative rovsing sign. no mcburney point tenderness. Back: No midline spinous or paraspinal tenderness. No step off deformity. Ext: Upper and lower extremities atraumatic, without tenderness, deformity, swelling or erythema Neuro: AOx3. Normal speech. Ambulating with steady gait. Course Course Course Narrative: cbc without leukrocytosis or left shift. no anemia. h&h stable. liver enzymes wnl. no ashia. lipase/amylase wnl. pancreatitis unlikely. abd ultrasound unremarkable. urine shows mild infection. patient endorsees foul smelling urine and increased urinary frequency - more than her baseline overactive bladder. no dysuria/ flank pain. will send macrobid to pharmacy. Medical Decision Making Medical Decision Making MDM Narrative: 49 year old female with pmhx significant for arthritis, bipolar, fibromyalgia, mi, hyperkalemia, obesity, overactive bladder presents to the ED today for evaluation of right upper and left uper quadrant abdominal discomfort x weeks. Vital signs stable. afebrile. she is nontoxic appearing and in NAD. Abdominal exam benign. Differential diagnosis includes biliary colic, renal colic, nephrolithiasis, gastroenteritis. Abdominal exam without peritoneal signs. No evidence of acute abdomen at this time. Well appearing. Moderate suspicion for acute hepatobiliary disease (including acute cholecystitis). Less likely to represent acute pancreatitis, PUD (including perforation), acute infectious processes (pneumonia, hepatitis, pyelonephritis), atypical appendicitis, vascular catastrophe, bowel obstruction or viscus perforation. Presentation not consistent with other acute, emergent causes of abdominal pain at this time. Plan: labs, UA, RUQ US, serial reassessment Differential Diagnosis Differential Diagnoses: The differential diagnosis associated with the presentation includes as above. Admission/Observation not indicated Lab Data MDM Lab Attestation statement: I reviewed the patient's lab results. as above. 04/27/24 10:38 04/27/24 10:38 Labs: Lab Results 04/27/24 04/27/24 Range/Units 10:38 17:20 WBC 6.3 (4.8-10.8) X10*3/uL RBC 4.75 (4.20-5.50) X10*6/uL Hgb 13.4 (12.0-16.0) g/dl Hct 39.8 (37.0-47.0) % MCV 83.8 (80.0-98.0) fL MCH 28.2 (27.0-33.0) pg MCHC 33.7 (31.0-35.0) g/dl RDW 12.8 (11.0-16.0) % Plt Count 269 (160-400) X10*3/uL MPV 11.1 (9.4-12.3) fL Immature Gran % (Auto) 0.2 (0.0-0.4) % Neut % (Auto) 69.7 (45-73) % Lymph % (Auto) 20.5 (20-40) % [place] % (Auto) 8.2 (2-11) % Eos % (Auto) 0.6 (0-4) % Baso % (Auto) 0.8 (0-2) % Lymph # (Auto) 1.3 (1.2-4.9) X10*3/uL [place] # (Auto) 0.5 (0.1-1.2) X10*3/uL Eos # (Auto) 0.0 (0.0-0.4) X10*3/uL Baso # (Auto) 0.1 (0.0-0.2) X10*3/uL Abs Immat Gran (auto) 0.01 (0.00-0.03) X10*3/uL Absolute Neuts (auto) 4.4 (2.0-8.3) x10*3/uL Absolute Nucleated RBC 0.000 (0.0-0.012) X10*3/uL Nucleated RBC % (auto) 0.0 (0.0-0.2) /100WBC Sodium 141 (135-145) mmol/L Potassium 3.9 (3.3-5.1) mmol/L Chloride 112 H (96-108) mmol/L Carbon Dioxide 22 (22-29) mmol/L Anion Gap 11 L (12-20) BUN 11 (9-16) mg/dL Creatinine 0.76 (0.5-1.4) mg/dL Estim Creat Clear Calc 98.9 Estimated GFR > 60 Random Glucose 90 (60-115) mg/dL Calcium 8.8 (8.4-10.2) mg/dL Total Bilirubin 0.4 (0.0-1.0) mg/dL AST 17 (5-31) U/L ALT 10 (0-31) U/L Alkaline Phosphatase 58 (39-117) U/L Total Protein 6.8 (6.5-8.0) g/dL Albumin 4.2 (3.5-5.0) g/dL Amylase 34 (28-100) U/L Lipase 10 (8-78) U/L Urine Color Straw Urine Appearance Hazy Urine pH 5.5 (5.0-9.0) Ur Specific [place] >= 1.030 H (1.005-1.025) Urine Protein Negative (Neg-Trace) mg/dL Urine Glucose (UA) Negative (Negative) mg/dL Urine Ketones 15 (Negative) mg/dL Urine Blood Small (1+) H (Negative) Urine Nitrite Negative (Negative) Ur Leukocyte Esterase Moderate (2+) H (Negative) Urine RBC 0-2 (0-2) /HPF Urine WBC 6-10 (0-5) /HPF Ur Squamous Epith Cells 3-5 (0-2) /HPF Ur Transition Epith Cell Present Urine Bacteria 2+ (None Seen) Hyaline Casts 3-5 (0-2) /LPF Independent Interpretation I performed an independent interpretation of an: Ultrasound Interpretation: US RUQ without gb wall thickening Radiology Impression Discussion of test interpretation with radiology: I have reviewed the radiologist's reading. Radiologist Impression: CLINICAL HISTORY: RUQ pain US abdomen limited. COMPARISON: US abdomen dated 06/26/22 at 08:[address] abdomen and pelvis dated 06/17/20 at 18:49 EST Technique: Real time sonographic imaging with Doppler imaging was performed by the firer tunnel kiln. Multiple route sales representative static images were saved for review. FINDINGS: The visualized portions of the pancreas appear normal. The liver has normal echotexture. The main portal vein is antegrade. Liver, right lobe size: 9.6 cm, diminutive The gallbladder is normal in size. No cholelithiasis or sludge identified. There is a negative sonographic Jang's sign. Gallbladder wall: 2 mm, normal. Common bile duct: 2 mm, normal. Right kidney: Cortical medullary differentiation is maintained. No calculus or focal parenchymal abnormality identified. No hydronephrosis. Right kidney length: 12.4 cm No free intraperitoneal fluid identified. IMPRESSION: 1. No cause for patient's symptoms identified. No evidence of cholecystitis. No evidence of right renal obstruction. This document has been electronically signed by: David Tapia MD on 04/27/2024 19:26:10 External Record Review External record reviewed: Inpatient record, Office record, Outpatient record, Prior outpatient labs, Prior outpatient radiology, Primary care record and Outside ED record Prescription Management I considered prescription management with: Antibiotic (macrobid) Social Determinants Patient?s care significantly limited by Social Determinants of Health including: Other Social Determinant of Health Critical Care Time Critical Care Time Critical Care Time: No Discharge Plan Discharge Clinical Impression: Urinary tract infection Patient Disposition: Home, Self-Care Instructions: Urinary Tract Infection in Women (ED) Additional Instructions: Your blood work is reassuring. Your abdominal ultrasound was unremarkable. Your urine today was positive for infection. Nitrofurantoin is an antibiotic that has been sent to your pharmacy. Take this as prescribed and do not miss any doses. You must complete the entire course of antibiotics. If you do not, there is a risk of the infection coming back or worsening. Follow up with your primary care provider as needed. If you develop a fever or new/ worsening symptoms call 911 or come back to the ER for further evaluation. Prescriptions: New nitrofurantoin macrocrystal 100 mg capsule 100 mg PO BID 5 Days Qty: 10 0RF Rx Instructions: must administer with a meal/food No Action aspirin 81 mg tablet,delayed release (DR/EC) 81 mg PO DAILY Qty: 90 3RF mirabegron [Myrbetriq] 25 mg tablet extended release 24 hr 25 mg PO DAILY Qty: 30 0RF Rx Instructions: Okay to refill once before patient will return for visit in our office in April. oxybutynin chloride 15 mg tablet extended release 24hr 15 mg PO DAILY Qty: 30 0RF Rx Instructions: okay to refill in advance once before patient visit in April clonazepam 1 mg tablet 1 mg PO TID fluoxetine 20 mg capsule 40 mg PO DAILY pantoprazole 40 mg tablet,delayed release (DR/EC) 40 mg PO BID aripiprazole 15 mg tablet 7.5 mg PO DAILY atorvastatin 10 mg tablet 10 mg PO DAILY omega 7-red-rbi-fish oil [Fish Oil] 1,200 (144-216) mg capsule PO folic acid 400 mcg tablet 0.4 mg PO DAILY Zyrtec 10 mg capsule 10 mg PO DAILY ketoconazole 2 % shampoo topical betamethasone dipropionate 0.05 % ointment topical tretinoin 0.05 % cream topical BEDTIME losartan 25 mg tablet 25 mg PO DAILY minoxidil 2.5 mg tablet PO cetirizine 10 mg tablet 10 mg PO QAM cyanocobalamin (vitamin B-12) 500 mcg tablet 500 mcg PO DAILY thiamine HCl (vitamin B1) 50 mg tablet 100 mg PO QAM cholecalciferol (vitamin D3) 25 mcg (1,000 unit) capsule 2,000 unit PO DAILY clobetasol 0.05 % ointment 1 appl topical BID hydrocortisone 2.5 % ointment topical betamethasone dipropionate 0.05 % lotion 1 appl topical DAILY Discharge Date/Time: 04/27/24 20:48 Print Language: Ghanaian
[2024-04-27 17:33] LABS: Appearance Urine Hazy; Color Urine Straw; Glucose Urine UA Negative (Negative); Leukocyte Esterase Urine Moderate (2+) (Negative); Nitrite Urine Negative (Negative); PH 5.5 (5.0-9.0); Specific Gravity - Urine >= 1.030 (1.005-1.025); UMIC TRIGGER UACC YES; Urine Blood Small (1+) (Negative); Urine Ketones 15 mg/dL (Negative); Urine Protein Negative (Neg-Trace)
[2024-04-27 17:38] LABS: Amylase 34 U/L (28-100); Lipase 10 U/L (8-78)
[2024-04-27 18:37] LABS: Bacteria Urine 2+ (None Seen); RBC Urine 0-2 /HPF (0-2); Transitional Epi Cells Urine Present; UACC Culture Trigger YES
== END 2024-04-27 20:48 | disposition home or self-care (01) ==
PROVIDERS: Physician Assistant Medical; Emergency Provider Emergency Medicine; PCP Student in an Organized Health Care Education/Training Program
DX: N39.0 Urinary tract infection, site not specified (principal); R10.2 Pelvic and perineal pain; R10.12 Left upper quadrant pain; Z87.891 Personal history of nicotine dependence; Z79.899 Other long term (current) drug therapy
CPT/HCPCS: 36415; 76705; 80053; 81001; 82150; 83690; 85025; 87086; 99202; 99282; 99284

== ENCOUNTER → 2024-04-27 16:42 | Outpatient (BNV) | payer OTHER, SELFPAY | PROVIDERS: Emergency Provider Emergency Medicine; PCP Student in an Organized Health Care Education/Training Program; Visit Provider Radiology Diagnostic Radiology | DX: R10.11 Right upper quadrant pain (principal) | CPT/HCPCS: 76705 ==

== ENCOUNTER 2024-05-12 07:56 | Outpatient (REF) | payer OTHER, SELFPAY | END 2024-05-12 07:57 | disposition home or self-care (01) | LOC: HO.MAMMO 07:56 | PROVIDERS: PCP Student in an Organized Health Care Education/Training Program; Visit Provider Student in an Organized Health Care Education/Training Program | DX: Z12.31 Encounter for screening mammogram for malignant neoplasm of breast (principal) | CPT/HCPCS: 77063; 77067 ==

== ENCOUNTER → 2024-05-12 08:15 | Outpatient (BNV) | payer OTHER, SELFPAY | PROVIDERS: PCP Student in an Organized Health Care Education/Training Program; Visit Provider Internal Medicine | DX: Z12.31 Encounter for screening mammogram for malignant neoplasm of breast (principal) | CPT/HCPCS: 77063; 77067 ==

== ENCOUNTER 2024-05-18 12:44 | Outpatient (AMB) | payer OTHER, SELFPAY ==
--- NOTE | 2024-05-18 12:48 | MHC.OFFVIS ---
Vital Signs 05/18/24 13:01 BP 110/68 Intake Visit Reasons: Ultra sound follow up/emb Cell Technician: Cell Technician Present (Swapna) Allergies Penicillins Allergy (Severe, Verified 05/18/24 12:50) ITCHING/SWELLING doxycycline [DOXYCYCLINE] Allergy (Intermediate, Verified 05/18/24 12:50) SEVERE ITCHING, pruritis penicillin G Allergy (Unknown, Verified 05/18/24 12:50) Unknown rosuvastatin [From Crestor] Allergy (Unknown, Verified 05/18/24 12:50) Unknown tetracycline Allergy (Unknown, Verified 05/18/24 12:50) Unknown clindamycin Allergy (Verified 05/18/24 12:50) Gastrointestinal Upset famotidine Allergy (Verified 05/18/24 12:50) Anaphylaxis Sulfa (Sulfonamide Antibiotics) Allergy (Verified 05/18/24 12:50) Chest Pain escitalopram [From Lexapro] Adverse Reaction (Unknown, Verified 05/18/24 12:50) Palpitations oseltamivir [From Tamiflu] Adverse Reaction (Unknown, Verified 05/18/24 12:50) Palpitations rabeprazole Adverse Reaction (Unknown, Verified 05/18/24 12:50) Chest Pain nirmatrelvir [From Paxlovid] Adverse Reaction (Verified 05/18/24 12:50) Headache ritonavir [From Paxlovid] Adverse Reaction (Verified 05/18/24 12:50) Headache Is last menstrual period known: Yes Last menstrual period: 04/24/24 HPI Comments Details: Patient is here for a follow up pelvic ultrasound and an EMB procedure, she has a history of AUB and PCOS. [facility] Medical History Anxiety Sleep apnea IBS (irritable bowel syndrome) Insomnia GERD (gastroesophageal reflux disease) Hyperlipidemia TIA (transient ischemic attack) Coronary artery disease Morbid obesity Overactive bladder Partial bowel obstruction Hospital discharge follow-up Abnormal CT of the abdomen Hyperkalemia Small bowel obstruction Lab test negative for COVID-19 virus History of urinary incontinence History of PA (myocardial infarction) Rectal prolapse Arthritis Bipolar II disorder Back pain Optic neuritis Fibromyalgia Dyspnea Obesity Surgical History History of surgery History of carpal tunnel release of both wrists Hx of thumb surgery History of pubovaginal sling (10/19/19) H/O cystoscopy (06/08/19) History of total right knee replacement (06/2016) History of total left knee replacement (TKR) (11/2016) Family History Mother Afib Heart disease Father Cardiac failure Respiratory failure Brother Afib Brother Hypertension Brother Hypertension Son No problems noted. Social History Household Members: Family Housing: House Alcohol intake: current Alcohol intake frequency: holidays/special occasions only Comment: sleeping Patient Tobacco Use Status: Former Tobacco user Tobacco use type: Cigarette Cigarette Packs Per Day: 1 Cigarettes Per Day: 20 Years Smoked: 20 Second Hand Smoke Exposure: No Substance Use Type: Marijuana service: No Current occupational status: unemployed Female Reproductive History Menstrual Date of last menstrual period: 04/24/24 Review of Systems Const All systems reviewed & are unremarkable except as noted in HPI and below Physical Exam Vital Signs: Last Vital Signs BP 110/68 05/18/24 13:01 Const General: cooperative, healthy appearing and no acute distress Orientation/consciousness: patient oriented x3 GI Inspection: Yes normal to inspection Palpation (GI): Soft to palpation and Other GI palpation findings present (Nontender) Rectal Exam - Female: visual inspection normal General: Yes bladder normal to palpation External Female Exam: normal appearance of the urethra Speculum Exam - Vagina: normal appearance of the vagina, normal palpation and normal vaginal discharge Speculum Exam - Cervix: normal appearance of the cervix and normal palpation Bimanual exam- vagina & uterus: normal bimanual exam, normal palpation, uterine size normal, bladder normal to palpation, normal palpation, uterine shape normal and non-tender Bimanual Exam- Adnexa, other: normal adnexae Neuro General: patient oriented x3 Office Procedures Endometrial Biopsy Details: The patient is here today for an endometrial biopsy due to AUB to rule out any pathology including atypical, hyperplasia or cancer cells of the uterus. She was counseled regarding anticipatory guidance for the procedure including the risks for pain, infection, bleeding, perforation, potential injury to the tissues may include the cervix, uterus, tubes, bladder and bowels. These injuries may include further treatment and evaluation including surgery, blood transfusions, antibiotics, hospitalizations and anesthesia. Permanent injury and scarring can occur. She was consented for the procedure, and the consent forms were signed. She is agreeable to have the procedure today. All questions were answered. Endometrial Biopsy Procedure: The patient was placed in the dorsal lithotomy position and a sterile speculum inserted. Using aseptic technique for the procedure. The cervix was cleansed with Betadine x 3 swabs. A single toothed tenaculum was placed on the cervix for stabilization and the uterus was sounded to 8cm with a 4mm pipelle, and tissue sample obtained. Minimal bleeding was observed. The tissue sample was placed in formalin in a patient labeled container by staff assisting and sent to the pathology department for processing and interpretation. The patient tolerate the procedure well and was in good condition when leaving the department. Endometrial Biopsy Post Procedure Care: Nothing in the vagina including: tampons, douching or intimacy until all the bleeding has subsided. There may be some post procedure bleeding for several days, this bleeding is usually light and may turn to a light brown or pink color. Mild cramps may occurs. Nothing in the vaginal including: tampons, douching, or intimacy until all the bleeding has subsided. You may take an over the counter mild analgesic such as Tylenol or Advil (if no allergies) per the manufactures recommendation on dosing, frequency, and follow the directions completely. Call the office if any: fever (over 100.4), flu like symptoms, abdominal pain (worse than cramping), foul smelling, infected appearing vaginal discharge, or heavy bleeding. If indicated: Use condoms to prevent and STI's, and only after the bleeding has stopped completely. Return to the office in 2 weeks for results and plan of care. This note is constructed using voice recognition software. While every effort has been made to ensure accuracy, catering operations manager errors may have been included. [id number] Biopsy Results AMB Test Urine AMB Test Urine Negative Last Edit by SASHA Reinoso on 05/18/24 13:05 Results Reviewed Results Reviewed: Laboratory Last Values [facility] Clinic Negative 05/18/24 13:[address] [address] Ultrasound Report Signed Patient: Niya Haji MR#: [id number] : 1975 Acct:[id number] Age/Sex: 48 / F ADM Date: 02/20/24 Loc: HO.US Attending Dr: Arlette Blum CNM Ordering Physician: Arlette lBum CNM Date of Service: 02/20/24 Procedure(s): US pelvic and transvaginal Accession Number(s): [id number] cc: Arlette Blum CNM; Mery Torre MD~ EXAMINATION: US PELVIS CLINICAL INFORMATION: Abnormal bleeding COMPARISON: None available. TECHNIQUE: Ultrasound of the pelvis is performed using both transabdominal and transvaginal transducers along with Doppler. Transvaginal imaging is performed due to inadequate visualization transabdominally. FINDINGS: Uterus: The uterus is 9.6 x 4.9 x 4.6 and measures cm. The double wall endometrial thickness is 10 mm. The uterus is smooth in contour and has normal myometrial echogenicity. No visible fibroid. Adnexa: Both ovaries are visualized. There is normal color flow to the adnexa. There is no ovarian torsion. There is no pelvic ascites or fluid collection. Right ovary measures 2.6 x 1.9 x 2.6 cm. Left ovary measures 3.3 x 2.3 x 2.8 cm. US/US pelvic and transvaginal IMPRESSION: Normal pelvic ultrasound. Electronically signed by: Robert Farr MD 04/18/2024 11:07 PM [facility] Dictated By: Robert Farr MD Signed By: <Electronically signed by Robert Farr MD in OV> 04/18/24 2307 DD/ 1148 TD/TT: 02/20/24 1206 Outside Cutter Hand: Assessment & Plan Assessment & Plan (1) Abnormal uterine bleeding (AUB): Code(s): N93.9 - Abnormal uterine and vaginal bleeding, unspecified Plan See EMB procedure notes. Discussed ultrasound findings-unremarkable. Discussed options briefly for cycle control-she is currently not interested in a Mirena IUD, plan further discussion with the EMB results follow up appointment. The patient expressed understanding and agreement with the plan of care. All of her questions and concerns were addressed to the best of my ability. This note is constructed using voice recognition software. While every effort has been made to ensure accuracy, catering operations manager errors may have been included. Orders: Orders AMB HCG Urine Test Today Z32.02 - Encounter for test, result negative Surgical Today N93.9 - Abnormal uterine and vaginal bleeding, unspecified Coding Level of Care Code Procedure Only Diagnoses Abnormal uterine bleeding (AUB) N93.9 CPT Codes Endometrial Biopsy - CPT: 00035-[id number] Biopsy ([id number])
[2024-05-18 13:01] VITALS: BP 110/68
--- OUTSIDE RECORDS SUMMARY | 2024-05-18 14:19 | XMS_ITS | Encounter Summary ---
Author Organization [employer] Address [address] [facility] [facility] [address] [place] [address] Care Team Providers Care Rubber Liner Name Role Phone Mery Torre MD Primary Care Provider [phone] Encounter Details Date Type Department Care Team (Late st Contact Info) Description 01/14/2024 Orders Only [facility] MED & PEDS [address] [place] [address] ProviderClaudia MD Social History Tobacco Use Types Packs/Day Years Used Date Smoking Tobacco: Former Cigarettes Smokeless Tobacco: Never Alcohol Use Standard Drinks/Week Comments Never 0 (1 standard drink = 0.6 oz pur e alcohol) Alcohol Answer Date Recorded Frequency of Alcohol Consumption Not on file 03/05/2023 Average Number of Drinks Not on file 023 Frequency of Binge Drinking Not on file 11/2022 Score 0 03/05/2023 Depression Answer Date Recorded Patient Health Questionnaire-9 Score 7 03/05/2023 Patient Health Questionnaire-9 Score 7 03/05/2023 Last PHQ-9: Questionnaire Data Not on file 1 05/05/2022 Housing Stability Answer Date Recorded What is your housing situation today? I have maryanne chiu 02/12/[address] you li ve. Do you have problems with any of the following? None of the above 02/12/2023 Food Insecurity Answer Date Recorded Within the past 12 months, y ou worried that your food would run out before you got money to buy more: Never True 02/12/2023 Within the past 12 months,th e food you bought just didn't last and you didn't have enough money to get more: Never True 10/ Transportation Answer Date Recorded In the past 12 months, has l ack of transportation kept you from medical appts, meetings, work or from getting things needed for daily living? No 02/12/2023 Utilities Answer Date Recorded In the past 12 months, has t he electric, gas, oil or water company threatened to shut off services in your home? No 02/12/2023 Depression Answer Date Recorded Patient Health Questionnaire-2 Score 4 03/05/2023 Comments Unknown Sex and Gender Information Value Date Recorded Sex Assigned at Female 02/25/2022 10:32 AM EDT Legal Sex Female 10:32 AM EDT Gender Identity Female 02/25/2022 10:32 AM EDT Sexual Orientation Straight 08/14/2022 6: 50 AM EDT documented as of this encounter Plan of Treatment Not on file documented as of this encounter Procedures Procedure Name Priority Date/Time Associated Diagnosis Comments FL UPPER GI W AIR Routine 01/14/2024 12:22 PM EDT documented in this encounter Results * FL upper GI w air (01/14/2024 12:22 PM EDT) Anatomical Region Laterality Modality Body Radiographic Shanthi ging us Historical Provider MD [facility] FLUOROSCOPY PROCEDURE S Final Result documented in this encounter Visit Diagnoses Not on filedocumented in this encounter Additional Health Concerns Assessment Noted Time PHQ-9 Depression Total Score: 7 03/05/20 23 11:02 AM EST documented as of this encounter Care Teams Rubber Liner Relationship Specialty Start Date End Date Mery Torre MD [address] [place] [id number] PCP - General Family Medicine 01/10/22 documented as of this encounter
--- OUTSIDE RECORDS SUMMARY | 2024-05-18 14:19 | XMS_ITS | Encounter Summary ---
Author Organization [employer] Address [address] [facility] [address] [place] [address] Care Team Providers Care Wildlife Policy Professional Name Role Phone Mery Torre MD Primary Care Provider [phone] Reason for Visit * Reason Onset Date Comments Results 03/29/2022 Encounter Details Date Type Department Care Team ([facility] st Contact Info) Description 03/29/2022 Telephone [facility] CH[facility] MED & PEDS [address] [place] [address] Mery Torre MD [address] [place] [address] Results Social History Tobacco Use Types Packs/Day Years Used Date Smoking Tobacco: Never Assessed Comments Unknown Sex and Gender Information Value Date Recorded Sex Assigned at Female 02/25/2022 10:32 AM EDT Legal Sex Female 10:32 AM EDT Gender Identity Female 02/25/2022 10:32 AM EDT Sexual Orientation Straight 08/14/2022 6: 50 AM EDT documented as of this encounter Miscellaneous Notes * Telephone Encounter - Vanessa Newby LPN - 04/16/2022 10:02 AM EST Pt is all set * Telephone Encounter - Mery Torre MD - 04/15/2022 1:54 PM EST What does it cover * Telephone Encounter - Vanessa Newby LPN - 04/11/2022 3:38 PM EST Pt insurance [facility] denied pt for lido/prilocn 2.5 * Telephone Encounter - Piedad Strickland - 04/11/2022 10:57 AM EST TC from pt requesting Pulmonary function test results . [place] [facility] [place] stated they had already faxed results in . Please contact [phone]. * Telephone Encounter - Raine Rojas - 04/05/2022 12:24 PM EST Tc from pt requesting a call regarding test results for sleep study, and pulmonary function test. * Telephone Encounter - Alexander Shepherd RN - 04/01/2022 11:47 AM EST TC placed, spoke to requesting PFT results that was done last Friday at [facility]. Pt was also requesting sleep apnea results that were ordered by her neurologist last Friday, pt state she has an appointment with them tomorrow. RN advised will attempt to get PFT results, if retrieved provider would need to review first and then we will give her a call with results. In regards to the sleepapnea results, advised to follow up with her neurologist tomorrow during her appointment. Pt verbalizes understanding and agreed to plan. RN was able to obtain results and will send to be scanned. Please review results once available and advise nurse's. Thanks. * Telephone Encounter - Ana Duckworth - 03/29/2022 11:14 AM EST Tc from pt calling requesting a call back with pulmonary test/ sleep apnea test results. PCP Dr. Torre documented in this encounter Plan of Treatment Not on file documented as of this encounter Visit Diagnoses Not on filedocumented in this encounter Care Teams Wildlife Policy Professional Relationship Specialty Start Date End Date Mery Torre MD [address] [place] [id number] PCP - General Family Medicine 01/10/22 documented as of this encounter
--- OUTSIDE RECORDS SUMMARY | 2024-05-18 14:19 | XMS_ITS | Encounter Summary ---
Author Organization [employer] Address [address] [facility] [address] [place] [address] Care Team Providers Care Director Of Accounting Name Role Phone Mery Torre MD Primary Care Provider [phone] Reason for Visit * Reason Comments Med Refill Encounter Details Date Type Department Care Team ([facility] st Contact Info) Description 03/08/2024 Refill [facility] [address] [place] [address] Mery Torre MD [address] [place] [address] Hypertension, unspecified type Social History Tobacco Use Types Packs/Day Years [...] enough money to get more: Never True Transportation Answer Date Recorded In the past [...] documented as of this encounter Visit Diagnoses Diagnosis Hypertension, unspecified type documented in this encounter Additional Health Concerns Assessment Noted Time PHQ-9 Depression Total Score: 7 03/05/20 23 11:02 AM EST documented as of this encounter Care Teams Director Of Accounting Relationship Specialty Start Date End Date Mery Torre MD [address] [place] [id number] PCP - General Family Medicine 01/10/22 documented as of this encounter
--- OUTSIDE RECORDS SUMMARY | 2024-05-18 14:19 | XMS_ITS | Encounter Summary ---
Author Organization [employer] Address [address] [facility] 7t [place] [address] Care Team Providers Care Auto Radiator Mechanic Name Role Phone Mery Torre MD Primary Care Provider [phone] Encounter Details Date Type Department Care Team (Late st Contact Info) Description 04/27/2024 Orders Only GENERIC EXTERNAL DATA DEPARTMENT Provider, Generic External Data Social History Tobacco Use Types Packs/Day Years [...] Procedure Name Priority Date/Time Associated Diagnosis Comments US ABDOMEN LIMITED Routine 04/27/2024 7: 26 PM EST URINALYSIS, COMPLETE, WITH REFLEX TO CULTURE Routine 04/27/2024 5:20 PM EST CBC WITH AUTO DIFFERENTIAL Routine 04/27/2024 10:38 AM EST COMPREHENSIVE METABOLIC PANEL Routine 04/27/2024 10:38 AM EST CULTURE, URINE, ROUTINE Routine 04/27/2024 12:00 AM EST documented in this encounter Results * US Abdomen Limited (04/27/2024 7:26 PM EST) Anatomical Region Laterality Modality Abdomen Ultrasound 04/27/2024 7:26 PM EST Narrative 04/27/2024 7:27 PM EST ? [facility] ?[address] ?[place] [address] ? Ultrasound Report ? Signed ? Patient: Raissa,Niya ?MR#: [id number] ? : 1975 ?Acct:[id number] ? Age/Sex: 49 / F ?ADM Date: 12/31/24 ? Loc: HO.ED ? Attending Dr: ? Ordering Physician: Brianda Hand ?? Date of Service: 04/27/24 ?? Procedure(s): US abdomen limited ?? Accession Number(s): [id number] ? cc: Mery Torre MD; Brianda Hand ? CLINICAL HISTORY: RUQ pain ? US abdomen limited. ? COMPARISON: ?? US abdomen dated 06/26/22 at 08:36 EST ?? CT abdomen and pelvis dated 06/17/20 at 18:49 EST ? Technique: Real time sonographic imaging with Doppler imaging was ?? performed by the senior strategy analyst. Multiple artist's representative static images were ?? saved for review. ? FINDINGS: ?? The visualized portions of the pancreas appear normal. ? The liver has normal echotexture. The main portal vein is antegrade. ?? Liver, right lobe size: 9.6 cm, diminutive ? The gallbladder is normal in size. No cholelithiasis or sludge identified. ?? There is a negative sonographic Jang's sign. ?? Gallbladder wall: 2 mm, normal. ?? Common bile duct: 2 mm, normal. ? Right kidney: ?? Cortical medullary differentiation is maintained. No calculus or focal ?? parenchymal abnormality identified. ?? No hydronephrosis. ?? Right kidney length: 12.4 cm ? No free intraperitoneal fluid identified. ? IMPRESSION: ?? 1. No cause for patient's symptoms identified. No evidence of ?? cholecystitis. No evidence of right renal obstruction. ? This document has been electronically signed by: David Tapia MD on ?? 04/27/2024 19:26:10 ? Dictated By: ?David Tapia MD ? Signed By: ?<Electronically signed by David Tapia MD in OV> ?04/27/241926 ? DD/ 25 ? TD/TT: 04/27/241925 ? Machine Rigger: ? Procedure Note Jeanine, Image - 04/27/[address] [address] Ultrasound Report Signed Patient: Mahsa Haji#: [id number] : 1975Acct:[id number] Age/Sex: 49 / FADM Date: 04/27/24 Loc: HO.ED Attending Dr: Ordering Physician: Brianda Hand Date of Service: 04/27/24 Procedure(s): US abdomen limited Accession Number(s): [id number] cc: Mery Torre MD; Brianda Hand CLINICAL HISTORY: RUQ pain US abdomen limited. COMPARISON: US abdomen dated 06/26/22 at 08:[address] abdomen and pelvis dated 06/17/20 at 18:49 EST Technique: Real time sonographic imaging with Doppler imaging was performed by the senior strategy analyst. Multiple artist's representative static images were saved for review. FINDINGS: The visualized portions of the pancreas appear normal. The liver has normal echotexture. The main portal vein is antegrade. Liver, right lobe size: 9.6 cm, diminutive The gallbladder is normal in size. No cholelithiasis or sludge identified. There is a negative sonographic Jang's sign. Gallbladder wall: 2 mm, normal. Common bile duct: 2 mm, normal. Right kidney: Cortical medullary differentiation is maintained. No calculus or focal parenchymal abnormality identified. No hydronephrosis. Right kidney length: 12.4 cm No free intraperitoneal fluid identified. IMPRESSION: 1. No cause for patient's symptoms identified. No evidence of cholecystitis. No evidence of right renal obstruction. This document has been electronically signed by: David Tapia MD on 04/27/2024 19:26:10 Dictated By: David Tapia MD Signed By: <Electronically signed by David Tapia MD in OV> 04/27/241926 DD/ 25 TD/TT: 04/27/241925 Machine Rigger: [facility] External Provider IMG US PROCEDURES Edited Result - Final * (ABNORMAL) Urinalysis, Complete, with Reflex to Culture (04/27/2024 5:20 PM EST) Color Urine Straw [facility] Appearance Urine Hazy [facility] PH 5.5 5.0 - 9.0 [facility] Glucose Urine UA Negative Negative mg/dL [facility] Urine Blood Small (1+)(A) Negative [facility] Specific [place] - Urine >=1.030(H) 1.005 - 1.025 [facility] Urine Protein Negative Neg-Trace mg/dL [facility] Urine Ketones 15 Negative mg/dL [facility] Nitrite Urine Negative Negative [facility] Leukocyte Esterase Urine Moderate (2+)(A) Negative [facility] RBC Urine 0-2 0 - 2 /HPF [facility] Urine WBC 6-10 0 - 5 /HPF [facility] Urine Squamous Epithelial Cell 3-5 0 - 2 /HPF [facility] TRANSITIONAL (EPITHELIAL) CELLS (#/HPF) IN URINE Present [facility] Urine Bacteria 2+ None Seen [facility] Hyaline Casts, Urine 3-5 0 - 2 /LPF [facility] 04/27/2024 5:20 PM EST 04/27/2024 5:24 PM EST Narrative [facility] - 04/27/2024 6:37 PM EST [id number], Clean Catch us Generic External Data Provider LAB URINE ORDERAB LES Final Result [facility] [address] [place] [phone] * (ABNORMAL) Comprehensive Metabolic Panel (04/27/2024 10:38 AM EST) Sodium 141 135 - 145 mmol/L [facility] Potassium 3.9 3.3 - 5.1 mmol/L [facility] Chloride 112(H) 96 - 108 mmol/L [facility] Carbon Dioxide 22 22 - 29 mmol/L [facility] Anion Gap 11(L) 12 - 20 [facility] Urea Nitrogen (BUN) 11 9 - 16 mg/dL [facility] Creatinine, Serum 0.76 0.5 - 1.4 mg/dL [facility] Creatinine Clr Calc Pharmacy 98.9 [facility] Comment:Provided height and weight: 160.02 cm,92.533 kg.eGFR (calculated from the MDRD study equation) and eCrCl(calculated from the Cockcroft-Gault equation) are based ondifferent parameters and may not yield comparable results.If eCrCl result is absurd, please check patient'sheight/weight. Estimated Glomerular Filt Rate >60 [facility] Comment:Chronic Kidney Disea se: Estimated GFR < 60 mL/min/1.78r5Vymmer Kidney Disease: Estimated GFR < 15 mL/min/1.73m2 Glucose 90 60 - 115 mg/dL [facility] Calcium 8.8 8.4 - 10.2 mg/dL [facility] Bilirubin, Total 0.4 0.0 - 1.0 mg/dL [facility] Aspartate Amino Transferase 17 5 - 31 U/L [facility] Alanine Aminotransferase 10 0 - 31 U/L [facility] Total Protein 6.8 6.5 - 8.0 g/dL [facility] Albumin Level 4.2 3.5 - 5.0 g/dL [facility] Alkaline Phosphatase 58 39 - 117 U/L [facility] 04/27/2024 10:3 8 AM EST 04/27/2024 10:42 AM EST us Generic External Data Provider LAB BLOOD ORDERAB LES Final Result [facility] [address] [place] [phone] * CBC auto differential (04/27/2024 10:38 AM EST) White Blood Count 6.3 4.8 - 10.8 X10*3/uL [facility] Red Blood Count 4.75 4.20 - 5.50 X10*6/uL [facility] Hemoglobin 13.4 12.0 - 16.0 g/dl [facility] Hematocrit 39.8 37.0 - 47.0 % [facility] Mean Corpuscular Volume 83.8 80.0 - 98.0 fL [facility] Mean Corpuscular Hemoglobin 28.2 27.0 - 33.0 pg [facility] Mean Corpuscular HGB Conc 33.7 31.0 - 35.0 g/dl [facility] Red Cell Distribution Width 12.8 11.0 - 16.0 % [facility] Platelet Count 269 160 - 400 X10*3/uL [facility] Mean Platelet Volume 11.1 9.4 - 12.3 fL [facility] Neutrophils Percent Auto 69.7 45 - 73 % [facility] Imm Gran Pct Auto 0.2 0.0 - 0.4 % [facility] Lymphocytes Percent Auto 20.5 20 - 40 % [facility] Monocytes Percent Auto 8.2 2 - 11 % [facility] Eosinophils Percent Auto 0.6 0 - 4 % [facility] Basophils Percent Auto 0.8 0 - 2 % [facility] NRBC Pct Auto 0.0 0.0 - 0.2 /100WBC [facility] Neutrophils Absolute Auto 4.4 2.0 - 8.3 x10*3/uL [facility] Imm Gran Abs Auto 0.01 0.00 - 0.03 X10*3/uL [facility] Lymphocytes Absolute Auto 1.3 1.2 - 4.9 X10*3/uL [facility] Monocytes Absolute Auto 0.5 0.1 - 1.2 X10*3/uL [facility] Eosinophils Absolute Auto 0.0 0.0 - 0.4 X10*3/uL [facility] Basophils Absolute Auto 0.1 0.0 - 0.2 X10*3/uL [facility] NRBC Abs Auto 0.000 0.0 - 0.012 X10*3/uL [facility] 04/27/2024 10:3 8 AM EST 04/27/2024 10:42 AM EST us Generic External Data Provider LAB BLOOD ORDERAB LES Final Result [facility] [address] [place] [phone] * Culture, Urine, Routine (04/27/2024 12:00 AM EST) Urine Urine specimen obtained by clean catch procedure / Unknown 04/27/2024 04/27/2024 Comment:UACC Narrative [facility] - 04/29/2024 12:19 PM EST Urine Culture Report Result Urine Culture > 100,000 cfu/ml Urine Culture Mixed bacterial denita characteristic of Urine Culture urogenital contamination. Specimen Source: Urine clean catch us Generic External Data Provider LAB MICROBIOLOGY - GENERAL ORDERABLES Final Result Performing Organization Address City/State/[facility] Co de Phone Number [facility] [address] [place] [phone] documented in this encounter Visit Diagnoses Not on filedocumented in this encounter Additional Health Concerns Assessment Noted Time PHQ-9 Depression Total Score: 7 03/05/20 23 11:02 AM EST documented as of this encounter Care Teams Auto Radiator Mechanic Relationship Specialty Start Date End Date Mery Torre MD [address] [place] [phone] PCP - General Family Medicine 01/10/22 documented as of this encounter
--- OUTSIDE RECORDS SUMMARY | 2024-05-18 14:19 | XMS_ITS | Encounter Summary ---
Author Organization [facility] Address [address] [place] [address] Care Team Providers Care Manga Artist Name Role Phone Mery Torre MD Primary Care Provider [phone] Reason for Visit * Reason Onset Date Comments Med Refill 05/13/2024 Encounter Details Date Type Department Care Team ([facility] st Contact Info) Description 05/13/2024 Telephone Gastroenterology - [place] [address] [facility] [address] [place] [address] Aria Fernandez PA [address] [place] [address] Med Refill Social History Tobacco Use Types Packs/Day Years Used Date Smoking Tobacco: Never Smokeless Tobacco: Never Alcohol Use Standard Drinks/Week Comments No 0 (1 standard drink = 0.6 oz pur e alcohol) Sex and Gender Information Value Date Recorded Sex Assigned at Not on file Gender Identity Not on file Sexual Orientation Not on file documented as of this encounter Ordered Prescriptions Prescription Sig Dispensed Refills Start Date End Da te docusate sodium (Colace) 100 mg capsule Take 1 capsule (100 mg total) by mouth 2 (two) times a day. 180 each 2 05/13/2024 05/08/2025 documented in this encounter Progress Notes * CECELIA Taylor - 05/13/2024 3:22 PM EST ok * Coco Sung - 05/13/2024 1:39 PM EST Favio 10/08/2023 No upcoming Requesting refill on docusate 100 mg Take 1 capsule twice daily 90 day supply documented in this encounter Plan of Treatment Not on file documented as of this encounter Visit Diagnoses Not on filedocumented in this encounter Care Teams Manga Artist Relationship Specialty Start Date End Date Mery Torre MD [address] [place] [address] PCP - General 05/30/22 documented as of this encounter
--- OUTSIDE RECORDS SUMMARY | 2024-05-18 14:19 | XMS_ITS | Encounter Summary ---
Author Organization [employer] Address [address] [facility] 7[address] [place] [address] Care Team Providers Care Pageant Director Name Role Phone Mery Torre MD Primary Care Provider Encounter Details Date Type Department Care Team ([facility] st Contact Info) Description 10/22/2023 Abstract [facility] MED [facility] PEDS [address] [place] [address] Mery Torre MD [address] [place], [place] [phone] Social History Tobacco Use Types Packs/Day Years [...] documented as of this encounter Care Teams Pageant Director Relationship Specialty Start Date End Date Mery Torre MD [address] [place] [phone] PCP - General Family Medicine 01/10/22 documented as of this encounter
--- OUTSIDE RECORDS SUMMARY | 2024-05-18 14:19 | XMS_ITS | Encounter Summary ---
Author Organization [employer] Address [address] [facility] [address] [place] [address] Care Team Providers Care Shochet Name Role Phone Mery Torre MD Primary Care Provider [phone] Encounter Details Date Type Department Care Team (Late st Contact Info) Description 09/10/2022 Orders Only [facility] MED & PEDS [address] [place] [address] Meg Cervantes LPN Social History Tobacco Use Types Packs/Day Years Used Date Smoking Tobacco: Former Cigarettes Smokeless Tobacco: Never Alcohol Use Standard Drinks/Week Comments Never 0 (1 standard drink = 0.6 oz pur e alcohol) Comments Unknown Sex and Gender Information Value Date Recorded Sex Assigned at Female 02/25/2022 10:32 AM EDT Legal Sex Female 10:32 AM EDT Gender Identity Female 02/25/2022 10:32 AM EDT Sexual Orientation Straight 08/14/2022 6: 50 AM EDT COVID-19 Exposure Response Date Recorded In the last 10 days, have yo u been in contact with someone who was confirmed or suspected to have Coronavirus/COVID-19? No / Unsure 08/30/2022 10:17 AM EDT documented as of this encounter Plan of Treatment Not on file documented as of this encounter Visit Diagnoses Not on filedocumented in this encounter Care Teams Shochet Relationship Specialty Start Date End Date Mery Torre MD [address] [place] [phone] PCP - General Family Medicine 01/10/22 documented as of this encounter
--- OUTSIDE RECORDS SUMMARY | 2024-05-18 14:19 | XMS_ITS | Encounter Summary ---
Author Organization [employer] Address [address] [facility] 7t [place] [address] Care Team Providers Care Rental Sales Representative Name Role Phone Mery Torre MD Primary Care Provider [phone] Reason for Visit * Reason Comments Med Refill Encounter Details Date Type Department Care Team ([facility] Contact Info) Description 02/05/[address] [facility] MED [facility] PEDS [address] [place] [address] Mery Torre MD [address] [place] [address] Social History Tobacco Use Types Packs/Day Years [...] documented as of this encounter Care Teams Rental Sales Representative Relationship Specialty Start Date End Date Mery Torre MD [address] [place] [phone] PCP - General Family Medicine 01/10/22 documented as of this encounter
--- OUTSIDE RECORDS SUMMARY | 2024-05-18 14:19 | XMS_ITS | Encounter Summary ---
Author Organization [employer] Address [address] [facility] 7t [place] [address] Care Team Providers Care Operations And Intelligence Assistant Name Role Phone Mery Torre MD Primary Care Provider [phone] Reason for Visit * Reason Comments Med Refill Encounter Details Date Type Department Care Team ([facility] Contact Info) Description 04/07/2023 Refill [facility] MED & PEDS [address] [place] [address] Mery Torre MD [address] [place] [address] Social History Tobacco Use Types Packs/Day Years [...] documented as of this encounter Care Teams Operations And Intelligence Assistant Relationship Specialty Start Date End Date Mery Torre MD [address] [place] [phone] PCP - General Family Medicine 01/10/22 documented as of this encounter
--- OUTSIDE RECORDS SUMMARY | 2024-05-18 14:19 | XMS_ITS | Encounter Summary ---
Author Organization [employer] Address [address] [facility] [address] [place] [address] Care Team Providers Care Technical Analyst Name Role Phone Mery Torre MD Primary Care Provider [phone] Encounter Details Date Type Department Care Team (Late st Contact Info) Description 04/16/2022 Orders Only [facility] [address] [place] [address] Mery Torre MD [address] [place] [address] [phone] Pain (Primary Dx) Social History Tobacco Use Types Packs/Day Years Used Date Smoking Tobacco: Never Smokeless Tobacco: Never Comments Unknown Sex and Gender Information Value [...] suspected to have Coronavirus/COVID-19? No / Unsure 04/16/2022 11:11 AM EST documented as of this encounter Plan of Treatment Not on file documented as of this encounter Visit Diagnoses Diagnosis Pain- Primary Generalized pain documented in this encounter Care Teams Technical Analyst Relationship Specialty Start Date End Date Mery Torre MD [address] [place] [address] PCP - General Family Medicine 01/10/22 documented as of this encounter
--- OUTSIDE RECORDS SUMMARY | 2024-05-18 14:19 | XMS_ITS | Clinical Summary ---
Author Organization [employer] Address [address] [facility] [address] [place] [address] Care Team Providers Care Card Cleaner Name Role Phone Mery Torre MD Primary Care Provider [phone] Allergies Active Allergy Reactions Criticality Noted Date Comments Doxycycline Unknown High 03/19/2017 Other reaction(s): Hives/Skin Rash, SEVERE ITCHING, pruritis Famotidine Hives 03/05/2023 Oseltamivir 11/11/2023 Penicillins Rash,Swelling High 03/19/2017 Other reaction(s): Hives/Skin Rash, ITCHING/SWELLING Rosuvastatin Headache 03/05/2023 Sulfa Antibiotics Palpitations,Shortne ss of breath High 03/05/2023 Tetracycline Unknown 03/05/2023 Trimethoprim 01/03/2021 Other reaction(s): Hives / Skin Rash Medications FLUoxetine (PROzac) 20 MG tablet Take 2 tablets by mouth. Active clonazePAM (KlonoPIN) 1 MG tablet Take 1 mg by mouth if needed in the morning, at noon, and at bedtime. 06/12/2022 Active ARIPiprazole (Abilify) 15 MG tablet Take 7.5 mg by mouth in the morning. Active pantoprazole (ProtoNix) 40 MG EC tablet Take 40 mg by mouth before breakfast. Do not crush, chew, or split. Active folic acid (Folvite) 400 MCG tablet TAKE 1 TABLET BY MOUTH EVERY MORNING 30 tablet 11 06/11/2023 Active thiamine (Vitamin B-1) 50 MG tablet TAKE 2 TABLETS BY MOUTH EVERY MORNING 60 tablet 11 07/14/2023 Active cyanocobalamin (Vitamin B-12) 500 MCG tablet Take 1 tablet (500 mcg) by mouth in the morning. 90 tablet 3 08/06/2023 08/06/19 Active aspirin 81 MG chewable tablet CHEW AND SWALLOW 1 TABLET BY MOUTH EVERY MORNING 90 tablet 3 09/12/2023 Active cholecalciferol VITAMIN D (Vitamin D-3) 50 MCG (1999 UT) capsule TAKE 1 CAPSULE BY MOUTH EVERY DAY 90 capsule 3 10/07/2023 Active amLODIPine (Norvasc) 10 MG tablet TAKE 1 TABLET(10 MG) BY MOUTH IN THE MORNING 90 tablet 1 10/17/2023 Active calcium carbonate 1500 (600 Ca) MG tablet TAKE 1 TABLET BY MOUTH TWICE DAILY 180 tablet 11 12/01/2023 Active cetirizine (ZyrTEC) 10 MG tablet TAKE 1 TABLET BY MOUTH EVERY MORNING 30 tablet 5 03/09/2024 Active atorvastatin (Lipitor) 10 MG tabletIndication s:Hypertension, unspecified type Take 1 tablet (10 mg) by mouth Once per day. TAKE 1 TABLET(10 MG) BY MOUTH IN THE MORNING 90 tablet 3 03/09/2024 Active losartan (Cozaar) 25 MG tablet TAKE 1 TABLET(25 MG) BY MOUTH IN THE MORNING 30 tablet 11 04/08/2024 Active Active Problems Problem Noted Date Diagnosed Date History of ID (myocardial infarction) 10/03/2022 Neurogenic bladder 07/03/2022 Anxiety 07/03/2022 HTN (hypertension) 04/16/2022 Encounters Date Type Department Care Team Description 04/27/2024 Orders Only GENERIC EXTERNAL DATA DEPARTMENT Provider, Generic External Data 04/08/2024 Refill [facility] [address] [place] [address] Mery Torre MD 03/09/2024 Refill [facility] [address] [place] [address] Mery Torre MD Hypertension, unspecified type 03/08/2024 Refill [facility] [address] [place] [address] Mery Torre MD Hypertension, unspecified type 03/07/2024 Refill [facility] [address] [place], [place] [phone] Mery Torre MD from Last 3 Months Immunizations Name Administration Dates Next Due Hep B, adult 02/04/2007,09/04/2006,08/05/2006 Influenza Injectable Quadriv alant Preservative Free IIV4 MDCK 12/20/2022,01/06/2020 Tdap 10/03/2016,07/22/2006 Social History Tobacco Use Types Packs/Day Years Used Date Smoking Tobacco: Former Cigarettes Smokeless Tobacco: Never Tobacco Cessation:Counseling Given: Not Answered Alcohol Use Standard Drinks/Week Comments Never 0 [...] Orientation Straight 08/14/2022 6: 50 AM EDT Last Filed Vital Signs Vital Sign Reading Time Taken Comments Blood Pressure 105/69 03/05/2023 10:58 AM EST Pulse 73 03/05/2023 10:58 AM EST Temperature 36.3 ??C (97.3 ??F) 03/05/2023 10:[address] Respiratory Rate 18 03/05/2023 10:58 AM EST Oxygen Saturation 97% 03/05/2023 10:58 AM EST Inhaled Oxygen Concentration - - Weight 85.3 kg (188 lb) 03/05/2023 10:58 AM EST Height 157.5 cm (5' 2 ) 03/05/2023 10:58 AM EST Body Mass Index 34.39 03/05/2023 10:58 AM EST Plan of Treatment Health Maintenance Due Date Last Done Comments CT Colonography 1977 FIT DNA/Cologuard 1977 FIT 1977 FOBT 1975 HIV Screening 1975 Sigmoidoscopy 1977 Alcohol/Substance Use Screening 1989 Hepatitis C Screening 1995 Hepatitis A Vaccines (1 of 2 - Risk 2-dose series) 1996 Pap Smear 1998 Cervical Cancer Screening 2007 HPV/Cotest 2007 SDOH Screening 10/04/2023 10/03/2022 COVID-19 Vaccine ( season) 2023 03/29/2022, 03/18/2021, 08/13/2020, Additional history exists Influenza Vaccine (#1) 2023 , 01/01/2022, 01/05/2021, Additional history exists Depression Screening 03/05/2024 03/05/2023, 03/05/20 23 Tobacco Screening 03/05/2024 03/05/2023 Mammogram 05/30/2024 05/30/2023, 04/28, 05/09/2022, Additional history exists DTaP/Tdap/Td Vaccines (3 - Td or Tdap) 10/03/2026 10/03/2016, 07/22/2006 Zoster Vaccines (1 of 2) 2027 Lipid Panel 11/11/2028 11/12/2023, 11/0 11/2022, 08/08/2022, Additional history exists Colonoscopy 02/13/2031 Colorectal Cancer Screening 02/13/2031 RSV Patients and Patients Aged 60 years or older (1 - 1-dose 75+ series) 2052 Hepatitis B Vaccines Completed 02/04/2007, 09/04/2006, 08/05/2006 HIB Vaccines Aged Out No longer eligi ble based on patient's age to complete this topic HPV Vaccines Aged Out No longer eligi ble based on patient's age to complete this topic IPV Vaccines Aged Out No longer eligi ble based on patient's age to complete this topic Meningococcal Vaccine Aged Out No carine chuy eligible based on patient's age to complete this topic Pneumococcal Vaccine: Pediatrics (0 to 5 Years) and At-Risk Patients (6 to 64 Years) Aged Out No longer eligible based on patient's age to complete this topic RSV under 20 months Aged Out No longe r eligible based on patient's age to complete this topic Rotavirus Vaccines Aged Out No longer eligible based on patient's age to complete this topic Procedures Procedure Name Priority Date/Time Associated Diagnosis Comments US ABDOMEN LIMITED Routine 04/27/2024 7: 26 PM EST URINALYSIS, COMPLETE, WITH REFLEX TO CULTURE Routine 04/27/2024 5:20 PM EST COMPREHENSIVE METABOLIC PANEL Routine 04/27/2024 10:38 AM EST CBC WITH AUTO DIFFERENTIAL Routine 04/27/2024 10:38 AM EST CULTURE, URINE, ROUTINE Routine 04/27/2024 12:00 AM EST US PELVIS TRANSVAGINAL Routine 02/20/2024 11:48 AM EDT LIPID PANEL, STANDARD Routine 11/12/2023 12:00 AM EDT Primary hypertension BI US BREAST LIMITED LEFT Routine 05/30/2023 11:41 AM EST from Last 3 Months or Most Recently Relevant to Health Maintenance Results * US Abdomen Limited (04/27/2024 7:26 PM EST) Anatomical Region Laterality Modality Abdomen Ultrasound 04/27/2024 7:26 PM EST Narrative 04/27/2024 7:27 PM EST ? [facility] ?[address] ?[place] [address] ? Ultrasound Report ? Signed ? Patient: Raissa,Niya ?MR#: [id number] ? : 1975 ?Acct:[id number] ? Age/Sex: 49 / F ?ADM Date: 04/27/24 ? Loc: HO.ED ? Attending Dr: ? Ordering Physician: Brianda Hand ?? Date of Service: 04/27/24 ?? Procedure(s): US abdomen limited ?? Accession Number(s): [id number] ? cc: Mery Torre MD; Brianda Hand ? CLINICAL HISTORY: RUQ pain ? US abdomen limited. ? COMPARISON: ?? US abdomen dated 06/26/22 at 08:36 EST ?? CT abdomen and pelvis dated 06/17/20 at 18:49 EST ? Technique: Real time sonographic imaging with Doppler imaging was ?? performed by the web weaver. Multiple title insurance sales representative static images were ?? saved for [...] ? DD/ 25 ? TD/TT: 04/27/241925 ? Radio Survey Worker: ? Procedure Note Donotuseinterpreter, Image - 04/27/2024 [place] [address] Ultrasound Report Signed Patient: Mahsa Haji#: [id number] : 1975Acct:[id number] Age/Sex: 49 / FADM Date: 04/27/24 Loc: HO.ED Attending Dr: Ordering Physician: Brianda Hand Date of Service: 04/27/24 Procedure(s): US abdomen limited Accession Number(s): [id number] cc: Mery Torre MD; Brianda Hand CLINICAL HISTORY: RUQ pain US abdomen limited. COMPARISON: US abdomen dated 06/26/22 at 08:[address] abdomen and pelvis dated 06/17/20 at 18:49 EST Technique: Real time sonographic imaging with Doppler imaging was performed by the web weaver. Multiple title insurance sales representative static images were saved for review. [...] in OV> 04/27/241926 DD/ 25 TD/TT: 04/27/241925 Radio Survey Worker: us [facility] External Provider IMG US PROCEDURES Edited Result - Final * (ABNORMAL) Urinalysis, Complete, with Reflex to Culture (04/27/2024 5:20 PM EST) Color Urine Straw [facility] Appearance Urine Hazy [facility] PH 5.5 5.0 - 9.0 [facility] Glucose Urine UA Negative Negative mg/dL [facility] Urine Blood Small (1+)(A) Negative [facility] Specific [place] - Urine >=1.030(H) 1.005 - 1.025 [facility] Urine Protein Negative Neg-Trace mg/dL [facility] Urine Ketones 15 Negative mg/dL [facility] Nitrite Urine Negative Negative [facility] Leukocyte Esterase Urine Moderate (2+)(A) Negative [facility] RBC Urine 0-2 0 - 2 /HPF [facility] Urine WBC 6-10 0 - 5 /HPF [facility] Urine Squamous Epithelial Cell 3-5 0 - 2 /HPF [facility] TRANSITIONAL (EPITHELIAL) CELLS (#/HPF) IN URINE Present [facility] Urine Bacteria 2+ None Seen [facility] Hyaline Casts, Urine 3-5 0 - 2 /LPF [facility] 04/27/2024 5:20 PM EST 04/27/2024 5:24 PM EST Narrative [facility] - 04/27/2024 6:37 PM EST [id number], Clean Catch us Generic External Data Provider LAB URINE ORDERAB LES Final Result [facility] [address] [place] [phone] * CBC auto differential (04/27/2024 10:38 AM EST) White Blood Count 6.3 4.8 - 10.8 X10*3/uL [facility] Red Blood Count 4.75 4.20 - 5.50 X10*6/uL [facility] Hemoglobin 13.4 12.0 - 16.0 g/dl [facility] Hematocrit 39.8 37.0 - 47.0 % [facility] Mean Corpuscular Volume 83.8 80.0 - 98.0 fL [facility] Mean Corpuscular Hemoglobin 28.2 27.0 - 33.0 pg [facility] Mean Corpuscular HGB Conc 33.7 31.0 - 35.0 g/dl [facility] Red Cell Distribution Width 12.8 11.0 - 16.0 % [facility] Platelet Count 269 160 - 400 X10*3/uL [facility] Mean Platelet Volume 11.1 9.4 - 12.3 fL [facility] Neutrophils Percent Auto 69.7 45 - 73 % [facility] Imm Gran Pct Auto 0.2 0.0 - 0.4 % [facility] Lymphocytes Percent Auto 20.5 20 - 40 % [facility] Monocytes Percent Auto 8.2 2 - 11 % [facility] Eosinophils Percent Auto 0.6 0 - 4 % [facility] Basophils Percent Auto 0.8 0 - 2 % [facility] NRBC Pct Auto 0.0 0.0 - 0.2 /100WBC [facility] Neutrophils Absolute Auto 4.4 2.0 - 8.3 x10*3/uL [facility] Imm Gran Abs Auto 0.01 0.00 - 0.03 X10*3/uL [facility] Lymphocytes Absolute Auto 1.3 1.2 - 4.9 X10*3/uL [facility] Monocytes Absolute Auto 0.5 0.1 - 1.2 X10*3/uL [facility] Eosinophils Absolute Auto 0.0 0.0 - 0.4 X10*3/uL [facility] Basophils Absolute Auto 0.1 0.0 - 0.2 X10*3/uL [facility] NRBC Abs Auto 0.000 0.0 - 0.012 X10*3/uL [facility] 04/27/2024 10:3 8 AM EST 04/27/2024 10:42 AM EST us Generic External Data Provider LAB BLOOD ORDERAB LES Final Result [facility] [address] [place] [phone] * (ABNORMAL) Comprehensive Metabolic Panel (04/27/2024 10:38 AM EST) Sodium 141 135 - 145 mmol/L [facility] Potassium 3.9 3.3 - 5.1 mmol/L [facility] Chloride 112(H) 96 - 108 mmol/L [facility] Carbon Dioxide 22 22 - 29 mmol/L [facility] Anion Gap 11(L) 12 - 20 [facility] Urea Nitrogen (BUN) 11 9 - 16 mg/dL [facility] Creatinine, Serum 0.76 0.5 - 1.4 mg/dL [facility] Creatinine Clr Calc Pharmacy 98.9 [facility] Comment:Provided height and weight: 160.02 cm,92.533 kg.eGFR (calculated from the MDRD study equation) and eCrCl(calculated from the Cockcroft-Gault equation) are based ondifferent parameters and may not yield comparable results.If eCrCl result is absurd, please check patient'sheight/weight. Estimated Glomerular Filt Rate >60 [facility] Comment:Chronic Kidney Disea se: Estimated GFR < 60 mL/min/1.89a7Beohqn Kidney Disease: Estimated GFR < 15 mL/min/1.73m2 Glucose 90 60 - 115 mg/dL [facility] Calcium 8.8 8.4 - 10.2 mg/dL [facility] Bilirubin, Total 0.4 0.0 - 1.0 mg/dL [facility] Aspartate Amino Transferase 17 5 - 31 U/L [facility] Alanine Aminotransferase 10 0 - 31 U/L [facility] Total Protein 6.8 6.5 - 8.0 g/dL [facility] Albumin Level 4.2 3.5 - 5.0 g/dL [facility] Alkaline Phosphatase 58 39 - 117 U/L [facility] 04/27/2024 10:3 8 AM EST 04/27/2024 10:42 AM EST Generic External Data Provider LAB BLOOD ORDERAB LES Final Result Performing Organization Address [facility] de Phone Number [facility] [address] [place] [phone] * Culture, Urine, Routine (04/27/2024 12:00 AM EST) Urine Urine specimen obtained by clean catch procedure / Unknown 04/27/2024 04/27/2024 Comment:UACC Narrative [facility] - 04/29/2024 12:19 PM EST Urine Culture Report Result Urine Culture > 100,000 cfu/ml Urine Culture Mixed bacterial denita characteristic of Urine Culture urogenital contamination. Specimen Source: Urine clean catch Generic External Data Provider LAB MICROBIOLOGY - GENERAL ORDERABLES Final Result Performing Organization Address [facility] de Phone Number [facility] [address] [place] [phone] * US Pelvis Transvaginal (02/20/2024 11:48 AM EDT) Anatomical Region Laterality Modality Pelvis Ultrasound 02/20/2024 11:4 8 AM EDT Narrative 04/18/2024 11:10 PM EST ? [facility] ?[address] ?[place] [address] ? Ultrasound Report ? Signed ? Patient: Raissa,Niya ?MR#: [id number] ? : 1975 ?Acct:[id number] ? Age/Sex: 48 / F ?ADM Date: 10/25/24 ? Loc: HO.US ? Attending Dr: Arlette Blum CNM ? Ordering Physician: Arlette Blum CNM ?? Date of Service: 02/20/24 ?? Procedure(s): US pelvic and transvaginal ?? Accession Number(s): [id number] ? cc: Arlette Blum CNM; Mery Torre MD ? EXAMINATION: ? US PELVIS ? CLINICAL INFORMATION: ? Abnormal bleeding ? COMPARISON: ?? None available. ? TECHNIQUE: ?? Ultrasound of the pelvis is performed using both transabdominal and ?? transvaginal transducers along with Doppler. Transvaginal imaging is ?? performed due to inadequate visualization transabdominally. ? FINDINGS: ?? Uterus: ?? The uterus is 9.6 x 4.9 x 4.6 and measures cm. ? The double wall endometrial thickness is 10 mm. ? The uterus is smooth in contour and has normal myometrial echogenicity. ?No visible fibroid. ? Adnexa: ?? Both ovaries are visualized. There is normal color flow to the adnexa. ?? There is no ovarian torsion. ??There is no pelvic ascites or fluid ?? collection. ? Right ovary measures 2.6 x 1.9 x 2.6 cm. ? Left ovary measures 3.3 x 2.3 x 2.8 cm. ? US/US pelvic and transvaginal ?? IMPRESSION: ?? Normal pelvic ultrasound. ? Electronically signed by: ??Robert Farr MD ??04/18/2024 11:07 PM EST ? Dictated By: ?Robert Farr MD ? Signed By: ?<Electronically signed by Robert Farr MD in OV> ? 04/18/24 2307 ? DD/ 1148 ? TD/TT: 02/20/24 1206 ? Radio Survey Worker: SS ? Procedure Note Jeanine, Image - 04/18/[address] [address] Ultrasound Report Signed Patient: Mahsa Haji#: [id number] : 1975Acct:[id number] Age/Sex: 48 / FADM Date: 02/20/24 Loc: HO.US Attending Dr: Arlette Blum CNM Ordering Physician: Arlette Blum CNM Date of Service: 02/20/24 Procedure(s): US pelvic and transvaginal Accession Number(s): [id number] cc: Arlette Blum CNM; Mery Torre MD EXAMINATION: US PELVIS CLINICAL INFORMATION: Abnormal bleeding COMPARISON: None available. TECHNIQUE: Ultrasound of the pelvis is performed using both transabdominal and transvaginal transducers along with Doppler. Transvaginal imaging is performed due to inadequate visualization transabdominally. FINDINGS: Uterus: The uterus is 9.6 x 4.9 x 4.6 and measures cm. The double wall endometrial thickness is 10 mm. The uterus is smooth in contour and has normal myometrial echogenicity. No visible fibroid. Adnexa: Both ovaries are visualized. There is normal color flow to the adnexa. There is no ovarian torsion. There is no pelvic ascites or fluid collection. Right ovary measures 2.6 x 1.9 x 2.6 cm. Left ovary measures 3.3 x 2.3 x 2.8 cm. US/US pelvic and transvaginal IMPRESSION: Normal pelvic ultrasound. Electronically signed by: Robert Farr MD 04/18/2024 11:07 PM [facility] Dictated By: Robert Farr MD Signed By: <Electronically signed by Robert Farr MD in OV> 04/18/247 DD/ 1148 TD/TT: 02/20/24 1206 Radio Survey Worker: SS us [facility] External Provider IMG US PROCEDURES Final Result * Lipid Panel, Standard (11/12/2023 12:00 AM EDT) Triglycerides 36 <150 mg/dL [facility] Comment:Desirable Triglyceri de: less than 150 mg/dLBorderline High Triglyceride 150-199 mg/dLHigh Triglyceride: 200-499 mg/dLVery High Triglyceride: greater than or equal to 5OO mg/dL Cholesterol 125 <200 mg/dL [facility] Comment:Desirable Cholestero l: less than 200 mg/dLBorderline High Cholesterol: 200-239 mg/dLHigh Cholesterol: greater than 239 mg/dL LDL Cholesterol Calculated 63 <100 mg/dL [facility] Comment:Desirable LDL: less than 100 mg/dLNear Optimal/Above Optimal LDL: 110- 129 mg/dLBorderline High LDL: 130-159 mg/dLHigh LDL: 160-189 mg/dLVery High LDL: greater than or equal to 190 mg/dL HDL Cholesterol 55 >40 mg/dL [facility] Comment:Desirable HDL: great er than 40 mg/dL Note: This HDL assay may give artificially low results in patients with liver disease. Blood Venous blood specimen / Unknown 11/12/2023 11/12/2023 us Mery Torre MD LAB BLOOD ORDERABLES Final Resul t [facility] [address] [place] [address] [phone] * BI US Breast Limited Left (05/30/2023 11:41 AM EST) Anatomical Region Laterality Modality Breast Left Ultrasound 05/30/2023 11:4 1 AM EST Narrative 05/30/2023 12:38 PM EST ? [facility] ? [address] ?[place] [address] ? Ultrasound Report ? Signed ? Patient: Niya Haji ?MR#: [id number] ? : 1975 ?Acct:[id number] ? Age/Sex: 48 / F ?ADM Date: 05/30/23 ? Loc: HO.MAMMO ? Attending Dr: Mery Torre MD ? Ordering Physician: Mery Torre MD ?? Date of Service: 05/30/23 ?? Procedure(s): US breast LT limited mamm only ?? Accession Number(s): [id number] ? cc: Mery Torre MD ? EXAMINATION: ?? MM DIAGNOSTIC DIGITAL BREAST TOMOSYNTHESIS, LEFT ?? US BREAST LIMITED, LEFT ? MAMMOGRAPHY: ?? CLINICAL INFORMATION: ? Diagnostic mammography and ultrasound for 3:00 left breast ?? circumscribed 1.3 cm oval mass, previously characterized as a simple ?? cyst by ultrasound dated 05/09/2022, however has enlarged since from ?? 0.8 cm. Callback exam. ? COMPARISON: ?? Mammography: Bilateral screening mammography 05/09/2023, 05/04/2022, ?? 04/03/2021, and 03/28/2020. ? TECHNIQUE: ?? Digital left breast tomosynthesis is performed utilizing the following ?? views: Full-field left 3-D mediolateral view, spot compression 3-D left ?? MLO x2, and left CC x2 images. ? FINDINGS: ?? The breasts are heterogeneously dense, which may obscure small masses ?? (ACR BI-RADS breast composition Category c). ? Within the 3:00 axis of the left breast, there is an isodense ?? circumscribed oval mass with smooth borders measuring 1.3 cm maximally, ?? previously 0.8 cm. This was previously characterized as a simple cyst. ?? No additional suspicious abnormalities in the left breast. ??No axillary ?? or skin abnormalities. ? ULTRASOUND: ?? CLINICAL INFORMATION: ?? As above. ? COMPARISON: ?? Left breast ultrasound 05/09/2022. ? TECHNIQUE: ?? Targeted sonographic evaluation was performed using a high frequency ?? linear transducer. ??Selected archived documentation. ? FINDINGS: ? LEFT BREAST: There is an oval simple cyst, anechoic, with good through ?? transmission and fairly perceptible chase, in the 3:00 axis of the left ?? breast measuring 1.3 x 1.1 x 0.6 cm, slightly enlarged from previously ?? 05/09/2022 when it measured 0.8 x 0.5 cm. This is a benign finding, and ?? correlates well with the abnormality on mammography. ? There is no mass, abnormal shadowing, or additional cystic abnormality. ? US/US breast LT limited mamm only ?? IMPRESSION: ?? There are no findings left breast suspicious for malignancy. ? Slightly enlarged simple cyst in the 3:00 axis of the left breast now ?? measuring 1.3 cm maximally. This is benign. No further follow-up ?? recommended. ? Recommend the patient return to routine annual screening. ? OVERALL ASSESSMENT: ?? Mammography: BI-RADS 2 - Benign Findings ?? Ultrasound: BI-RADS 2 - Benign Findings ? RECOMMENDATION: ?? 1 year F/U ? Results were provided to the patient at time of visit by the ?? technologist. ? This patient's information was entered into a reminder system with a ?? target due date for their next mammogram. ? Dictated By: ?Elliott Whittington MD ? Signed By: ?<Electronically signed by Elliott Whittington MD in OV> ?05/30/23 1234 ? DD/ 1141 ? TD/TT: ? Radio Survey Worker: ? Procedure Note Donotuseinterpreter, Image - [facility] [address] [place] [address] Ultrasound Report Signed Patient: Mahsa Haji#: [id number] : 1975Acct:[id number] Age/Sex: 48 / FADM Date: 05/30/23 Loc: HO.MAMMO Attending Dr: Mery Torre MD Ordering Physician: Mery Torre MD Date of Service: 05/30/23 Procedure(s): US breast LT limited mamm only Accession Number(s): [id number] cc: Mery Torre MD EXAMINATION: MM DIAGNOSTIC DIGITAL BREAST TOMOSYNTHESIS, LEFT US BREAST LIMITED, LEFT MAMMOGRAPHY: CLINICAL INFORMATION: Diagnostic mammography and ultrasound for 3:00 left breast circumscribed 1.3 cm oval mass, previously characterized as a simple cyst by ultrasound dated 05/09/2022, however has enlarged since from 0.8 cm. Callback exam. COMPARISON: Mammography: Bilateral screening mammography 05/09/2023, 05/04/2022, 04/03/2021, and 03/28/2020. TECHNIQUE: Digital left breast tomosynthesis is performed utilizing the following views: Full-field left 3-D mediolateral view, spot compression 3-D left MLO x2, and left CC x2 images. FINDINGS: The breasts are heterogeneously dense, which may obscure small masses (ACR BI-RADS breast composition Category c). Within the 3:00 axis of the left breast, there is an isodense circumscribed oval mass with smooth borders measuring 1.3 cm maximally, previously 0.8 cm. This was previously characterized as a simple cyst. No additional suspicious abnormalities in the left breast. No axillary or skin abnormalities. ULTRASOUND: CLINICAL INFORMATION: As above. COMPARISON: Left breast ultrasound 05/09/2022. TECHNIQUE: Targeted sonographic evaluation was performed using a high frequency linear transducer. Selected archived documentation. FINDINGS: LEFT BREAST: There is an oval simple cyst, anechoic, with good through transmission and fairly perceptible chase, in the 3:00 axis of the left breast measuring 1.3 x 1.1 x 0.6 cm, slightly enlarged from previously 05/09/2022 when it measured 0.8 x 0.5 cm. This is a benign finding, and correlates well with the abnormality on mammography. There is no mass, abnormal shadowing, or additional cystic abnormality. US/US breast LT limited mamm only IMPRESSION: There are no findings left breast suspicious for malignancy. Slightly enlarged simple cyst in the 3:00 axis of the left breast now measuring 1.3 cm maximally. This is benign. No further follow-up recommended. Recommend the patient return to routine annual screening. OVERALL ASSESSMENT: Mammography: BI-RADS 2 - Benign Findings Ultrasound: BI-RADS 2 - Benign Findings RECOMMENDATION: 1 year F/U Results were provided to the patient at time of visit by the technologist. This patient's information was entered into a reminder system with a target due date for their next mammogram. Dictated By: Elliott Whittington MD Signed By: <Electronically signed by Elliott Whittington MD in OV> 05/30/23 1234 DD/ 1141 TD/TT: Radio Survey Worker: us Mery Torre MD IMG US PROCEDURES Final Result from Last 3 Months or Most Recently Relevant to Health Maintenance Insurance [employer] [facility] Care Teams Card Cleaner Relationship Specialty Start Date End Date Mery Torre MD [address] [place] [address] PCP - General Family Medicine 01/10/22
--- OUTSIDE RECORDS SUMMARY | 2024-05-18 14:19 | XMS_ITS | Encounter Summary ---
Author Organization [email or web address] Address [address] [facility] 7t [place] [address] Care Team Providers Care Affiliate Marketing Specialist Name Role Phone Mery Torre MD Primary Care Provider [phone] Encounter Details Date Type Department Care Team ([facility] st Contact Info) Description 07/16/[address] [facility] CHC MED & PEDS [address] [place], [place] [phone] Mery Torre MD [address] [place], [place] [phone] Social History Tobacco Use Types Packs/Day Years [...] suspected to have Coronavirus/COVID-19? No / Unsure 07/03/2022 9:15 AM EST documented as of this encounter Plan of Treatment Not on file documented as of this encounter Visit Diagnoses Not on filedocumented in this encounter Care Teams Affiliate Marketing Specialist Relationship Specialty Start Date End Date Mery Torre MD [address] [place] [address] PCP - General Family Medicine 01/10/22 documented as of this encounter
--- OUTSIDE RECORDS SUMMARY | 2024-05-18 14:19 | XMS_ITS | Clinical Summary ---
Author Organization [facility] ity Address [address] [place] [address] Care Team Providers Care Orchid Hand Name Role Phone Mery Torre MD Primary Care Provider [phone] Medications Medication Sig Dispensed Refills Start Date End Date Status docusate sodium (Colace) 100 mg capsule Take 1 capsule (100 mg total) by mouth 2 (two) times a day. 180 each 2 05/13/2024 05/08/2025 Active Encounters Date Type Department Care Team Description 05/13/2024 Telephone Gastroenterology - [place] [address] [facility] [address] [facility] [address] [place] [address] Aria Fernandez PA Med Refill from Last 3 Months Surgical History Surgery Date Site/Laterality Comments TOTAL KNEE ARTHROPLASTY Bilateral PROCEDURE: HISTORICAL TOTAL KNEE REPLACE Medical History Medical History Date Comments Anxiety state, unspecified 05/21/2005 DX:An xiety state, unspecified Migraine without aura, witho ut mention of intractable migraine without mention of status migrainosus 12/30/2005 DX:Migraine without aura, wi thout mention of intractable migraine without mention of status migrainosus Other acne 12/30/2005 DX:Other acne Derangement of meniscus, not elsewhere classified 12/30/2005 DX:Derangement of meniscus, not elsewhere classified; COMMENT: torn right medial meniscus, surgical repair 2003 Temporomandibular joint diso rders, unspecified 01/13/2007 DX:Temporomandibular joint disorders, unspecified Allergic rhinitis 12/30/2005 DX:Allergic rh initis Hyperprolactinemia (CMS/HCC) 04/11/2020 DX: Hyperprolactinemia (HCC) PCOS (polycystic ovarian syndrome) 04/11/2020 DX:PCOS (polycystic ovarian syndrome) Depression 04/11/2020 DX:Depression; C OMMENT: reactive Chronic pain syndrome 04/11/2020 DX:Chronic pain syndrome DULCE (obstructive sleep apnea) 04/11/2020 DX :DULCE (obstructive sleep apnea) Syncope and collapse 04/11/2020 DX:Syncope and collapse; COMMENT: 04/2017 echo/ekg done, holter, stress and tilt table. Overactive bladder 04/11/2020 DX:Overactive bladder Vitamin D deficiency 04/11/2020 DX:Vitamin D deficiency Carpal tunnel syndrome 04/11/2020 DX:Carpal tunnel syndrome; COMMENT: Bilateral wrists. Full incontinence of feces 04/11/2020 DX:Fu ll incontinence of feces; COMMENT: 01/23/2020 Chronic sinusitis 04/11/2020 DX:Chronic sin usitis Fibromyalgia 04/11/2020 DX:Fibromyalgia GERD (gastroesophageal reflux disease) 0 DX:GERD (gastroesophageal reflux disease) Insomnia 04/11/2020 DX:Insomnia Trigeminal neuralgia 04/11/2020 DX:Trigemin al neuralgia; COMMENT: Left Cataract 04/11/2020 DX:Cataract; COM MENT: Hypertrophia, bilateral 05/2017 History of total bilateral k nee replacement (TKR) 04/11/2020 DX:History of total bilatera l knee replacement (TKR) History of transient ischemi c attack (TIA) 04/11/2020 DX:History of transient isch emic attack (TIA) Essential hypertension DX:Essent ial hypertension Family History Medical History Relation Name Comments CABG Father Relation Name Status Comments Father Social History Tobacco Use Types Packs/Day Years Used Date Smoking Tobacco: Never Smokeless Tobacco: Never Alcohol Use Standard Drinks/Week Comments No 0 (1 standard drink = 0.6 oz pur e alcohol) Sex and Gender Information Value Date Recorded Sex Assigned at Not on file Gender Identity Not on file Sexual Orientation Not on file Obstetrics History Last Filed Vital Signs Vital Sign Reading Time Taken Comments Blood Pressure 118/72 10/08/2023 9:27 AM EDT Sitting L Arm Pulse 88 10/08/2023 9:27 AM EDT Temperature - - Respiratory Rate - - Oxygen Saturation - - Inhaled Oxygen Concentration - - Weight 83.6 kg (184 lb 6.4 oz) 10/08/2023 9:27 AM EDT Height 160 cm (5' 3 ) 10/08/2023 9:27 AM EDT Body Mass Index 32.66 10/08/2023 9:27 AM EDT Plan of Treatment Health Maintenance Due Date Last Done Comments Breast Cancer Screening 1977 Pneumococcal Vaccine: Pediatrics (0 to 5 Years) and At-Risk Patients (6 to 64 Years) (1 of 2 - PCV) 1983 Hepatitis A Vaccines (1 of 2 - Risk 2-dose series) 1996 Cervical Cancer Screening: P ap Smear 1998 DTaP,Tdap,and Td Vaccines (2 - Td or Tdap) 07/22/2016 07/22/2006 Colorectal Cancer Screening: Colonoscopy 04/06/2022 Depression Screening 04/06/2022 HIV Screening 04/06/2022 Hepatitis C Screening 04/06/2022 Social Influencers of Health Screening 04/06/2022 COVID-19 Vaccine ( - 2023-2 5 season) 2023 Influenza Vaccine (#1) 2023 8, 02/02/2007 Hepatitis B Vaccines Completed 02/04/2007, 09/04/2006, 08/05/2006 HIB Vaccines Aged Out No longer eligi ble based on patient's age to complete this topic HPV Vaccines Aged Out No longer eligi ble based on patient's age to complete this topic IPV Vaccines Aged Out No longer eligi ble based on patient's age to complete this topic MMR Vaccines Aged Out No longer eligi ble based on patient's age to complete this topic Meningococcal ACWY Vaccine Aged Out N o longer eligible based on patient's age to complete this topic RSV Immunization Patients Under 20 months Aged Out No longer eligible b ased on patient's age to complete this topic Varicella Vaccines Aged Out No longer eligible based on patient's age to complete this topic Care Teams Orchid Hand Relationship Specialty Start Date End Date Mery Torre MD [address] [place] [address] PCP - General 05/30/22
--- OUTSIDE RECORDS SUMMARY | 2024-05-18 14:19 | XMS_ITS | Encounter Summary ---
Author Organization [employer] Address [address] [place] [address] 7[address] [place] [address] Care Team Providers Care Watch Manufacturing Supervisor Name Role Phone Mery Torre MD Primary Care Provider [phone] Encounter Details Date Type Department Care Team ([facility] st Contact Info) Description 04/12/2022 [facility] Only [place] [facility] [address] [place] [address] Mery Torre MD [address] [place] [address] Social History Tobacco Use Types Packs/Day Years [...] on filedocumented in this encounter Care Teams Watch Manufacturing Supervisor Relationship Specialty Start Date End Date Mery Torre MD [address] [place], [place] [phone] PCP - General Family Medicine 01/10/22 documented as of this encounter
== END 2024-05-18 13:43 | disposition home or self-care (01) ==
PROVIDERS: PCP Student in an Organized Health Care Education/Training Program; Visit Provider Advanced Practice Midwife
DX: N93.9 Abnormal uterine and vaginal bleeding, unspecified (principal); Z32.02 Encounter for pregnancy test, result negative
CPT/HCPCS: 58100

== ENCOUNTER 2024-05-24 08:12 | Outpatient (AMB) | payer OTHER, SELFPAY ==
--- NOTE | 2024-05-24 08:15 | A.OFFVIS_ITS ---
Intake Visit Reasons: [facility]- UTI/discuss Urodynamics Intake Note: Patient is present for [facility] Follow up/Urodynamic Discussion Urology Med: Oxybutynin, Myrbetriq Antibiotic Allergy: Doxycycline, Penicillin, Tetracycline,Clindamycin, Sulfa Blood Thinner: Aspirin Last PVR: 0ml Todays PVR: 168ml Patternmaker Metal Bench Required: No Accompanied by: Self / Same As Patient Allergies Penicillins Allergy (Severe, Verified 05/24/24 08:34) ITCHING/SWELLING doxycycline [DOXYCYCLINE] Allergy (Intermediate, Verified 05/24/24 08:34) SEVERE ITCHING, pruritis penicillin G Allergy (Unknown, Verified 05/24/24 08:34) Unknown rosuvastatin [From Crestor] Allergy (Unknown, Verified 05/24/24 08:34) Unknown tetracycline Allergy (Unknown, Verified 05/24/24 08:34) Unknown clindamycin Allergy (Verified 05/24/24 08:34) Gastrointestinal Upset famotidine Allergy (Verified 05/24/24 08:34) Anaphylaxis Sulfa (Sulfonamide Antibiotics) Allergy (Verified 05/24/24 08:34) Chest Pain mirabegron [From Myrbetriq] Adverse Reaction (Severe, Verified 05/24/24 08:34) tachycardia escitalopram [From Lexapro] Adverse Reaction (Unknown, Verified 05/24/24 08:34) Palpitations oseltamivir [From Tamiflu] Adverse Reaction (Unknown, Verified 05/24/24 08:34) Palpitations rabeprazole Adverse Reaction (Unknown, Verified 05/24/24 08:34) Chest Pain nirmatrelvir [From Paxlovid] Adverse Reaction (Verified 05/24/24 08:34) Headache ritonavir [From Paxlovid] Adverse Reaction (Verified 05/24/24 08:34) Headache Medication List - Last Reconciled 05/24/24 by Daniel Haskins MD aripiprazole 7.5 mg PO DAILY aspirin 81 mg PO DAILY atorvastatin 10 mg PO DAILY betamethasone dipropionate 0.05% topical betamethasone dipropionate 0.05% 1 appl topical DAILY cetirizine 10 mg PO QAM cetirizine (Zyrtec) 10 mg PO DAILY cholecalciferol (vitamin D3) 2,000 units PO DAILY clobetasol 0.05% 1 appl topical BID clonazepam 1 mg PO TID cyanocobalamin (vitamin B-12) 500 mcg PO DAILY fluoxetine 40 mg PO DAILY folic acid 0.4 mg PO DAILY hydrocortisone 2.5% topical ketoconazole 2% topical losartan 25 mg PO DAILY minoxidil mg PO omega 9-der-bie-fish oil 1,200 (144-216) mg (Fish Oil) caps PO oxybutynin chloride ER 15 mg PO DAILY pantoprazole 40 mg PO BID thiamine HCl (vitamin B1) 100 mg PO QAM tretinoin 0.05% appl topical BEDTIME HPI Comments Details: 05/24/24--Niya is a 49-year-old female who has been seen by Dr. Anne and presents to me for evaluation of urinary symptoms of urgency and urinary incontinence. The patient has had multiple pelvic surgeries including a mesh sling with revision and autologous rectus fascia sling. She states that after the revision she had problems with emptying and had to push to empty and recalls developing prolapse. She was seen by Uro client development consultant for prolapse repair. She states t hat she initially had Botox for urinary urgency and then had InterStim neuromodulation which worked well. Due to lead malfunction the lead needed to be changed which was done by Dr. Anne 07/15/2022. She states with a 2nd lead placement she did not tolerate programming due to rectal fluttering which was very uncomfortable. She states that on Ester 04/27/2024 she was seen in the emergency room due to UTI and abdominal pain. She was given antibiotics, an abdominal ultrasound was done which was within normal limits. She is currently on oxybutynin 15 mg daily, she has some dry mouth which is not bothersome, she stopped the Myrbetriq due to heart racing. I have discussed re- evaluate with urodynamics she is instructed to stopped the oxybutynin 5 days prior. The InterStim is currently turned off. 45 minutes spent in review of records pertaining to this visit and including [id number] discussion with the patient and documentation of this visit. Review of chart: Failed conservative therapy medications - Myrbetriq, VESIcare, tolterodine, and Gemtesa InterStim previously 07/15/22 InterStim revision - primary effect is rectal flutter when turned on Previous evaluation with Dr. Hendricks Urethral mesh had been placed by an outside urologist Dr. Hendricks had removed this mesh uses become infected and replace this with abdominal fascia Prior prolapse repair with Dr Hannah Eckert [facility] Medical History Anxiety Sleep apnea IBS (irritable bowel syndrome) Insomnia GERD (gastroesophageal reflux disease) Hyperlipidemia TIA (transient ischemic attack) Coronary artery disease Morbid obesity Overactive bladder Partial bowel obstruction Hospital discharge follow-up Abnormal CT of the abdomen Hyperkalemia Small bowel obstruction Lab test negative for COVID-19 virus History of urinary incontinence History of CO (myocardial infarction) Rectal prolapse Arthritis Bipolar II disorder Back pain Optic neuritis Fibromyalgia Dyspnea Obesity Surgical History History of surgery History of carpal tunnel release of both wrists Hx of thumb surgery History of pubovaginal sling (10/19/19) H/O cystoscopy (06/08/19) History of total right knee replacement (06/2016) History of total left knee replacement (TKR) (11/2016) Family History Mother Afib Heart disease Father Cardiac failure Respiratory failure Brother Afib Brother Hypertension Brother Hypertension Son No problems noted. Social History Household Members: Family Housing: House Alcohol intake: current Alcohol intake frequency: holidays/special occasions only Comment: sleeping Patient Tobacco Use Status: Former Tobacco user Tobacco use type: Cigarette Cigarette Packs Per Day: 1 Cigarettes Per Day: 20 Years Smoked: 20 Second Hand Smoke Exposure: No Substance Use Type: Marijuana service: No Current occupational status: unemployed Review of Systems Const All systems reviewed & are unremarkable except as noted in HPI and below Reports no additional complaints Eyes Reports no additional complaints ENT Reports no additional complaints Card Reports no additional complaints Resp Reports no additional complaints GI Reports no additional complaints Reports as per HPI Musc Reports no additional complaints Skin/Breast Reports system reviewed and no additional complaints, except as documented Neuro Reports no additional complaints Psych Reports no additional complaints Endo Reports no additional complaints Omar/Lymph Reports no additional complaints Aller/Immun Reports no additional complaints Office Procedures Post Void Residual Post Residual Void Post Void Residual (PVR): [id number] Void Residual by ultrasound Results AMB Urinalysis, Automated UA Leukoctes 0 Josseline/uL Last Edit by Indu Prakash Nathalie on 05/24/24 08:32 UA Nitrite Negative Last Edit by Indu Prakash, A on 05/24/24 08:32 UA Urobilinogen 0.2 mg/dL Last Edit by Indu Prakash [facility] on 05/24/24 08:3 2 UA Protein 0 mg/dL Last Edit by Indu Prakash A on 05/24/24 08:32 UA pH 6.0 Last Edit by Indu Prakash A on 05/24/24 08:32 UA Blood 0 Dustin/uL Last Edit by Indu Prakash [facility] on 05/24/24 08:32 UA Specific Hatley 1.005 Last Edit by Indu Prakash [facility] on 05/24/24 08: 32 UA Ketone Negative Last Edit by Indu Prakash [facility] on 05/24/24 08:32 UA Bilirubin 0 mg/dL Last Edit by Indu Prakash A on 05/24/24 08:32 UA Glucose 0 mg/dL Last Edit by Indu Prakash [facility] on 05/24/24 08:32 Results Reviewed Results Reviewed: Laboratory Last Values Urine pH (Auto) 6.0 05/24/24 08:30 Specific Hatley (Auto) 1.005 05/24/24 08:30 Urine Protein (Auto) 0 mg/dL 05/24/24 08:30 Glucose (UA)(Auto) 0 mg/dL 05/24/24 08:30 Urine Ketones (Auto) Negative 05/24/24 08:30 Urine Blood (Auto) 0 Dustin/uL 05/24/24 08:30 Urine Nitrite (Auto) Negative 05/24/24 08:30 Urine Bilirubin (Auto) 0 mg/dL 05/24/24 08:30 Urine Urobilinogen (Auto) 0.2 mg/dL 05/24/24 08:30 Leukocyte Esterase (Auto) 0 Josseline/uL 05/24/24 08:30 Date of Service: 04/27/24 Procedure(s): US abdomen limited Accession Number(s): [id number] cc: Mery Torre MD; Brianda Hand~ CLINICAL HISTORY: RUQ pain US abdomen limited. COMPARISON: US abdomen dated 06/26/22 at 08:[address] abdomen and pelvis dated 06/17/20 at 18:49 EST Technique: Real time sonographic imaging with Doppler imaging was performed by the administrative support assoc. Multiple counter sales representative static images were saved for review. FINDINGS: The visualized portions of the pancreas appear normal. The liver has normal echotexture. The main portal vein is antegrade. Liver, right lobe size: 9.6 cm, diminutive The gallbladder is normal in size. No cholelithiasis or sludge identified. There is a negative sonographic Jang's sign. Gallbladder wall: 2 mm, normal. Common bile duct: 2 mm, normal. Right kidney: Cortical medullary differentiation is maintained. No calculus or focal parenchymal abnormality identified. No hydronephrosis. Right kidney length: 12.4 cm No free intraperitoneal fluid identified. IMPRESSION: 1. No cause for patient's symptoms identified. No evidence of cholecystitis. No evidence of right renal obstruction. Assessment & Plan Assessment & Plan (1) Voiding dysfunction: Code(s): N39.8 - Other specified disorders of urinary system Category: Medical (2) Urgency of micturition: Code(s): R39.15 - Urgency of urination Category: Medical (3) Urinary incontinence: Code(s): R32 - Unspecified urinary incontinence Category: Medical Plan Schedule urodynamics. Patient to stop oxybutynin 5 days prior to procedure. Orders: Orders AMB Urinalysis Automated Today Z13.9 - Encounter for screening, unspecified AMB Post Void Residual by ultrasound Today R39.15 - Urgency of urination Patient Instructions: The patient had an opportunity to ask questions regarding treatment plan. The patient expressed understanding and agreement with the above treatment plan. The patient is aware they should contact our office by phone for worsening of their current condition or the appearance of new symptoms. Compliance is encou raged with any medications and followup testing that is ordered. It is a privilege to be allowed the opportunity to participate in the urologic care of your patient. If you have any questions or concerns regarding treatment for the above conditions please do not hesitate to contact me. The office telephone contact is [phone]. This note is constructed in part using voice recognition software. While every effort has been made to ensure accuracy type copy examiner errors may have been included. Yours sincerely, Daniel Haskins MD Coding Level of Care Code Est Pt Level 5 (23534) Diagnoses Voiding dysfunction N39.8 Urgency of micturition R39.15 Urinary incontinence R32 CPT Codes Post Residual Void - PVR CPT Code: 65425-Rhao Void Residual by ultrasound ([id number])
--- OUTSIDE RECORDS SUMMARY | 2024-05-24 12:35 | XMS_ITS | Encounter Summary ---
Author Organization [employer] Address [address] [facility] 7t [place] [address] Care Team Providers Care Lining Ironer Name Role Phone Mery Torre MD Primary Care Provider [phone] Encounter Details Date Type Department Care Team ([facility] st Contact Info) Description 07/16/2022 Orders Only [facility] CHC MED & PEDS [address] [place], [place] [phone] Mery Torre MD [address] [place], [place] [phone] Social History Tobacco Use Types Packs/Day Years [...] on filedocumented in this encounter Care Teams Lining Ironer Relationship Specialty Start Date End Date Mery Torre MD [address] [place] [address] PCP - General Family Medicine 01/10/22 documented as of this encounter
--- OUTSIDE RECORDS SUMMARY | 2024-05-24 12:35 | XMS_ITS | Encounter Summary ---
Author Organization [employer] Address [address] [facility] 7t [place] [address] Care Team Providers Care Production Trainer Name Role Phone Mery Torre MD Primary Care Provider [phone] Reason for Visit * Reason Comments Med Refill Encounter Details Date Type Department Care Team ([facility] Contact Info) Description 02/05/2024 Refill [facility] CHC MED & PEDS [address] [place] [address] Mery Torre MD [address] [place] [address] Social History Tobacco Use Types Packs/Day Years [...] documented as of this encounter Care Teams Production Trainer Relationship Specialty Start Date End Date Mery Torre MD [address] [place] [address] PCP - General Family Medicine 01/10/22 documented as of this encounter
--- OUTSIDE RECORDS SUMMARY | 2024-05-24 12:35 | XMS_ITS | Clinical Summary ---
Author Organization [facility] ity Address [address] [place] [address] Care Team Providers Care Pen Maker Name Role Phone Mery Torre MD Primary Care Provider [phone] Medications Medication Sig Dispensed Refills Start Date End Date Status docusate sodium (Colace) 100 mg capsule Take 1 capsule (100 mg total) by mouth 2 (two) times a day. 180 each 2 05/13/2024 05/08/2025 Active Encounters Date Type Department Care Team Description 05/13/2024 Telephone Gastroenterology - [place] 175 [facility] 175 [facility] [address] [place] [address] Aria Fernandez PA Med Refill [...] age to complete this topic Care Teams Pen Maker Relationship Specialty Start Date End Date Mery Torre MD [address] [place] [address] PCP - General 05/30/22
--- OUTSIDE RECORDS SUMMARY | 2024-05-24 12:35 | XMS_ITS | Encounter Summary ---
Author Organization [employer] Address [address] [place] [address] [address] [place] [address] Care Team Providers Care Manager Planning Name Role Phone Mery Torre MD Primary Care Provider [phone] Encounter Details Date Type Department Care Team ([facility] st Contact Info) Description 04/12/2022 [facility] Only [place] [facility] [address] [place] [address] Mery Torre MD [address] [place] [address] Social History Tobacco Use Types Packs/Day Years [...] on filedocumented in this encounter Care Teams Manager Planning Relationship Specialty Start Date End Date Mery Torre MD [address] [place], [place] [phone] PCP - General Family Medicine 01/10/22 documented as of this encounter
--- OUTSIDE RECORDS SUMMARY | 2024-05-24 12:35 | XMS_ITS | Encounter Summary ---
Author Organization [employer] Address [address] [facility] 7t [place] [address] Care Team Providers Care Cyber Reverse Engineer Name Role Phone Mery Torre MD Primary Care Provider [phone] Reason for Visit * Reason Onset Date Comments Results 03/29/2022 Encounter Details Date Type Department Care Team ([facility] st Contact Info) Description 03/29/2022 Telephone [facility] CHC MED & PEDS [address] [place] [address] Mery Torre MD [address] [place] [address] Results Social History Tobacco Use Types Packs/Day [...] - 04/11/2022 3:38 PM EST Pt insurance [facility] denied pt for lido/prilocn 2.5 * Telephone Encounter - Piedad Strickland - 04/11/2022 10:57 AM EST TC from pt requesting Pulmonary function test results . Pt spoke with [facility] and they stated they had already faxed results in . Please contact [phone]. * Telephone Encounter - Raine Rojas - 04/05/2022 12:24 PM EST Tc from pt requesting a call regarding test results for sleep study, and pulmonary function test. * Telephone Encounter - Alexander Shepherd RN - 04/01/2022 11:47 AM EST TC placed, spoke to requesting PFT results that was done last Friday at [facility]. Pt was also requesting sleep apnea results [...] on filedocumented in this encounter Care Teams Cyber Reverse Engineer Relationship Specialty Start Date End Date Mery Torre MD [address] [place] [address] PCP - General Family Medicine 01/10/22 documented as of this encounter
--- OUTSIDE RECORDS SUMMARY | 2024-05-24 12:35 | XMS_ITS | Encounter Summary ---
Author Organization [employer] Address [address] [facility] [address] [place] [address] Care Team Providers Care Dub Room Engineer Name Role Phone Mery Torre MD Primary Care Provider [phone] Encounter Details Date Type Department Care Team [...] Procedure Name Priority Date/Time Associated Diagnosis Comments BI MAMMOGRAM SCREENING TOMOSYNTHESIS BILATERAL Routine 05/12/2024 8:15 AM EST US ABDOMEN LIMITED Routine 04/27/2024 7: 26 PM EST URINALYSIS, COMPLETE, WITH REFLEX TO CULTURE Routine 04/27/2024 5:20 PM EST CBC WITH AUTO DIFFERENTIAL Routine 04/27/2024 10:38 AM EST COMPREHENSIVE METABOLIC PANEL Routine 04/27/2024 10:38 AM EST CULTURE, URINE, ROUTINE Routine 04/27/2024 12:00 AM EST documented in this encounter Results * BI Mammogram Screening Tomosynthesis Bilateral (05/12/2024 8:15 AM EST) Anatomical Region Laterality Modality Breast Bilateral Mammography 05/12/2024 8:15 AM EST Narrative 05/22/2024 1:30 PM EST ? [facility] [place] ? [address] ?[place] [address] ? Mammography Report ? Signed ? Patient: Raissa,Niya ?MR#: [id number] ? : 1975 ?Acct:[id number] ? Age/Sex: 49 / F ?ADM Date: 01/15/25 ? Loc: HO.MAMMO ? Attending Dr: Meyr Torre MD ? Ordering Physician: Mery Torre MD ?Results: 2Benign ?? Findings ? Date of Service: 05/12/24 ?Follow Up: 1 Year From Orig ?? inal Mammogram ? Procedure(s): MM tomosynthesis screening BI ?? Accession Number(s): [id number] ? cc: Mery Torre MD ? EXAMINATION: ?? MM SCREENING DIGITAL BREAST TOMOSYNTHESIS, BILATERAL ? CLINICAL INFORMATION: ? Screening. Asymptomatic. ? COMPARISON: ?? Mammography: Comparison is made with available priors ? TECHNIQUE: ?? Digital breast mammography with tomosynthesis is performed in both the ?? craniocaudal and mediolateral oblique views along with computer-aided ?? detection (CAD). ? FINDINGS: ?? The breasts are heterogeneously dense, which may obscure small masses ?? (ACR BI-RADS breast composition Category c). ?? Circumscribed oval mass upper outer left breast middle depth previously ?? demonstrated to be a simple cyst on prior ultrasound. ?? There are no significant masses, abnormal calcifications, or other ?? abnormalities. ? MM/MM tomosynthesis screening BI ?? IMPRESSION: ?? No mammographic evidence of malignancy. ? ASSESSMENT: ? BI-RADS BI-RADS 2 - Benign Findings ? RECOMMENDATION: ?? Routine annual mammography screening. ? 1 year F/U ? This examination should not preclude the clinical evaluation of a ?? suspicious palpable abnormality. ? This patient's information was entered into a reminder system with a ?? target due date for their next mammogram. ? Electronically signed by: ??Ashley Avila DO ??05/22/2024 01:27 PM EST ?? RP ? Dictated By: ?Ashley Avila DO ? Signed By: ?<Electronically signed by Ashley Avila, DO in OV> ? 05/22/24 1327 ? DD/ 0815 ? TD/TT: 05/12/24 0836 ? Children'S Minister: ? Procedure Note Donotwinnieinterpreter, Image - 05/22/2024 [facility] [address] [place], [place] [address] Mammography Report Signed Patient: Mahsa Haji#: [id number] : 1975Acct:[id number] Age/Sex: 49 / FADM Date: 05/12/24 Loc: HO.MAMMO Attending Dr: Mery Torre MD Ordering Physician: Mery Torre MDResults: 2Benign Findings Date of Service: 05/12/24Follow Up: 1 Year From Orig inal Mammogram Procedure(s): MM tomosynthesis screening BI Accession Number(s): [id number] cc: Mery Torre MD EXAMINATION: MM SCREENING DIGITAL BREAST TOMOSYNTHESIS, BILATERAL CLINICAL INFORMATION: Screening. Asymptomatic. COMPARISON: Mammography: Comparison is made with available priors TECHNIQUE: Digital breast mammography with tomosynthesis is performed in both the craniocaudal and mediolateral oblique views along with computer-aided detection (CAD). FINDINGS: The breasts are heterogeneously dense, which may obscure small masses (ACR BI-RADS breast composition Category c). Circumscribed oval mass upper outer left breast middle depth previously demonstrated to be a simple cyst on prior ultrasound. There are no significant masses, abnormal calcifications, or other abnormalities. MM/MM tomosynthesis screening BI IMPRESSION: No mammographic evidence of malignancy. ASSESSMENT: BI-RADS BI-RADS 2 - Benign Findings RECOMMENDATION: Routine annual mammography screening. 1 year F/U This examination should not preclude the clinical evaluation of a suspicious palpable abnormality. This patient's information was entered into a reminder system with a target due date for their next mammogram. Electronically signed by: Ashley Avila DO 05/22/2024 01:27 PM EST RP Dictated By: Ashley Avila DO Signed By: <Electronically signed by Ashley Avila DO in OV> 05/22/24 1327 DD/ 0815 TD/TT: 05/12/24 0836 Children'S Minister: us Mery Torre MD IMG BI PROCEDURES Edited Result - Final * US Abdomen Limited (04/27/2024 7:26 PM EST) Anatomical Region Laterality Modality Abdomen Ultrasound 04/27/2024 7:26 PM EST Narrative 04/27/2024 7:27 PM EST ? [facility] ?[address] ?[place] [address] ? Ultrasound Report ? Signed ? Patient: Niya Haji ?MR#: [id number] ? : 1975 ?Acct:[id number] ? Age/Sex: 49 / F ?ADM Date: 04/27/24 ? Loc: HO.ED ? Attending Dr: ? Ordering Physician: Brianda Hand ?? Date of Service: 04/27/24 ?? Procedure(s): US abdomen limited ?? Accession Number(s): [id number] ? cc: Mery Torre MD; Brianda Hand ? CLINICAL HISTORY: RUQ pain ? US abdomen limited. ? COMPARISON: ?? US abdomen dated 06/26/22 at 08:36 EST ?? CT abdomen and pelvis dated 2/20/21 at 18:49 EST ? Technique: Real time sonographic imaging with Doppler imaging was ?? performed by the coffee sampler. Multiple hvac sales representative static images were ?? saved [...] ? DD/ 25 ? TD/TT: 04/27/241925 ? Children'S Minister: ? Procedure Note Donotuseinterpreter, Image - 04/27/2024 [place] [id number] Ultrasound Report Signed Patient: Mahsa Haji#: [id number] : 1975Acct:[id number] Age/Sex: 49 / FADM Date: 04/27/24 Loc: HO.ED Attending Dr: Ordering Physician: Brianda Hand Date of Service: 04/27/24 Procedure(s): US abdomen limited Accession Number(s): [id number] cc: Mery Torre MD; Brianda Hand CLINICAL HISTORY: RUQ pain US abdomen limited. COMPARISON: US abdomen dated 06/26/22 at 08:[address] abdomen and pelvis dated 06/17/20 at 18:49 EST Technique: Real time sonographic imaging with Doppler imaging was performed by the coffee sampler. Multiple hvac sales representative static images were saved for [...] in OV> 04/27/241926 DD/ 25 TD/TT: 04/27/241925 Children'S Minister: us [facility] External Provider IMG US PROCEDURES Edited Result - Final * (ABNORMAL) Urinalysis, Complete, with Reflex to Culture (04/27/2024 5:20 PM EST) Color Urine Straw [facility] Appearance Urine Hazy [facility] PH 5.5 5.0 - 9.0 [facility] Glucose Urine UA Negative Negative mg/dL [facility] Urine Blood Small (1+)(A) Negative [facility] Specific [place] - Urine >=1.030(H) 1.005 - 1.025 [facility] Urine Protein Negative Neg-Trace mg/dL [facility] Urine Ketones 15 Negative mg/dL [facility] Nitrite Urine Negative Negative [facility] Leukocyte Esterase Urine Moderate (2+)(A) Negative [facility] RBC Urine 0-2 0 - 2 /HPF [facility] Urine WBC 6-10 0 - 5 /HPF [facility] Urine Squamous Epithelial Cell 3-5 0 - 2 /HPF [facility] TRANSITIONAL (EPITHELIAL) CELLS (#/HPF) IN URINE Present [facility] Urine Bacteria 2+ None Seen [facility] Hyaline Casts, Urine 3-5 0 - 2 /LPF [facility] 04/27/2024 5:20 PM EST 04/27/2024 5:24 PM EST Narrative [facility] - 04/27/2024 6:37 PM EST [id number], Clean Catch us Generic External Data Provider LAB URINE ORDERAB LES Final Result [facility] [address] [place] [phone] * (ABNORMAL) Comprehensive Metabolic Panel (04/27/2024 10:38 AM EST) Sodium 141 135 - 145 mmol/L [facility] Potassium 3.9 3.3 - 5.1 mmol/L [facility] Chloride 112(H) 96 - 108 mmol/L [facility] Carbon Dioxide 22 22 - 29 mmol/L [facility] Anion Gap 11(L) 12 - 20 [facility] Urea Nitrogen (BUN) 11 9 - 16 mg/dL [facility] Creatinine, Serum 0.76 0.5 - 1.4 mg/dL [facility] Creatinine Clr Calc Pharmacy 98.9 [facility] Comment:Provided height and weight: 160.02 cm,92.533 kg.eGFR (calculated from the MDRD study equation) and eCrCl(calculated from the Cockcroft-Gault equation) are based ondifferent parameters and may not yield comparable results.If eCrCl result is absurd, please check patient'sheight/weight. Estimated Glomerular Filt Rate >60 [facility] Comment:Chronic Kidney Disea se: Estimated GFR < 60 mL/min/1.14x8Jnwwvd Kidney Disease: Estimated GFR < 15 mL/min/1.73m2 Glucose 90 60 - 115 mg/dL [facility] Calcium 8.8 8.4 - 10.2 mg/dL [facility] Bilirubin, Total 0.4 0.0 - 1.0 mg/dL [facility] Aspartate Amino Transferase 17 5 - 31 U/L [facility] Alanine Aminotransferase 10 0 - 31 U/L [facility] Total Protein 6.8 6.5 - 8.0 g/dL [facility] Albumin Level 4.2 3.5 - 5.0 g/dL [facility] Alkaline Phosphatase 58 39 - 117 U/L [facility] 04/27/2024 10:3 8 AM EST 04/27/2024 10:42 AM EST us Generic External Data Provider LAB BLOOD ORDERAB LES Final Result [facility] [address] [place] [phone] [phone] * CBC auto differential (04/27/2024 10:38 AM EST) White Blood Count 6.3 4.8 - 10.8 X10*3/uL [facility] Red Blood Count 4.75 4.20 - 5.50 X10*6/uL [facility] Hemoglobin 13.4 12.0 - 16.0 g/dl [facility] Hematocrit 39.8 37.0 - 47.0 % [facility] Mean Corpuscular Volume 83.8 80.0 - 98.0 fL [facility] Mean Corpuscular Hemoglobin 28.2 27.0 - 33.0 pg [facility] Mean Corpuscular HGB Conc 33.7 31.0 - 35.0 g/dl [facility] Red Cell Distribution Width 12.8 11.0 - 16.0 % [facility] Platelet Count 269 160 - 400 X10*3/uL [facility] Mean Platelet Volume 11.1 9.4 - 12.3 fL [facility] Neutrophils Percent Auto 69.7 45 - 73 % [facility] Imm Gran Pct Auto 0.2 0.0 - 0.4 % [facility] Lymphocytes Percent Auto 20.5 20 - 40 % [facility] Monocytes Percent Auto 8.2 2 - 11 % [facility] Eosinophils Percent Auto 0.6 0 - 4 % [facility] Basophils Percent Auto 0.8 0 - 2 % [facility] NRBC Pct Auto 0.0 0.0 - 0.2 /100WBC [facility] Neutrophils Absolute Auto 4.4 2.0 - 8.3 x10*3/uL [facility] Imm Gran Abs Auto 0.01 0.00 - 0.03 X10*3/uL [facility] Lymphocytes Absolute Auto 1.3 1.2 - 4.9 X10*3/uL [facility] Monocytes Absolute Auto 0.5 0.1 - 1.2 X10*3/uL [facility] Eosinophils Absolute Auto 0.0 0.0 - 0.4 X10*3/uL [facility] Basophils Absolute Auto 0.1 0.0 - 0.2 X10*3/uL [facility] NRBC Abs Auto 0.000 0.0 - 0.012 X10*3/uL [facility] 04/27/2024 10:3 8 AM EST 04/27/2024 10:42 AM EST us Generic External Data Provider LAB BLOOD ORDERAB LES Final Result Performing Organization Address [facility] [employer] de Phone Number [facility] [address] [place] [phone] * Culture, Urine, Routine (04/27/2024 12:00 AM EST) Urine Urine specimen obtained by clean catch procedure / Unknown 04/27/2024 04/27/2024 Comment:UACC Narrative [facility] - 04/29/2024 12:19 PM EST Urine Culture Report Result Urine Culture > 100,000 cfu/ml Urine Culture Mixed bacterial denita characteristic of Urine Culture urogenital contamination. Specimen Source: Urine clean catch Generic External Data Provider LAB MICROBIOLOGY - GENERAL ORDERABLES Final Result Performing Organization Address [facility] Co de Phone Number [facility] [address] [place] [phone] documented in this encounter Visit Diagnoses Not on filedocumented in this encounter Additional Health Concerns Assessment Noted Time PHQ-9 Depression Total Score: 7 03/05/20 23 11:02 AM EST documented as of this encounter Care Teams Dub Room Engineer Relationship Specialty Start Date End Date Mery Torre MD [address] [place] [phone] PCP - General Family Medicine 01/10/22 documented as of this encounter
--- OUTSIDE RECORDS SUMMARY | 2024-05-24 12:35 | XMS_ITS | Encounter Summary ---
Author Organization [employer] Address [address] [facility] [place] [address] Care Team Providers Care Cardiology Tech Name Role Phone Mery Torre MD Primary Care Provider [phone] Encounter Details Date Type Department Care Team (Late st Contact Info) Description 01/14/2024 Orders Only [facility] [address] [place] [address] ProviderClaudia MD Social History Tobacco Use Types [...] documented as of this encounter Care Teams Cardiology Tech Relationship Specialty Start Date End Date Mery Torre MD [address] [place] [phone] PCP - General Family Medicine 01/10/22 documented as of this encounter
--- OUTSIDE RECORDS SUMMARY | 2024-05-24 12:35 | XMS_ITS | Clinical Summary ---
Author Organization [employer] Address [address] [facility] 7t [place] [address] Care Team Providers Care Trackman Name Role Phone Mery Torre MD Primary Care Provider [phone] Allergies Active Allergy Reactions Criticality Noted Date [...] Encounters Date Type Department Care Team Description 05/18/2024 Orders Only GENERIC EXTERNAL DATA DEPARTMENT Provider, Generic External Data 04/27/2024 Orders Only GENERIC EXTERNAL DATA DEPARTMENT Provider, Generic External Data 04/08/2024 Refill [facility] MED & PEDS [address] [place] [address] Mery Torre MD 03/09/2024 Refill [facility] MED & PEDS [address] [place] [address] Mery Torre MD Hypertension, unspecified type 03/08/2024 Refill [facility] MEDICINE [address] [place] [address] Mery Torre MD Hypertension, unspecified type 03/07/2024 Refill [facility] MED & PEDS [address] [place] [address] Mery Torre MD from Last 3 Months [...] is your housing situation today? I have maryanneessence chiu 02/12/[address] you [...] 1975 Sigmoidoscopy 1977 Alcohol/Substance Use Screening 1989 Family Planning (PISQ) 1992 Hepatitis C Screening 1995 Hepatitis A Vaccines (1 of 2 - Risk 2-dose series) 1996 Pap Smear 1998 Cervical Cancer Screening 2007 HPV/Cotest 2007 SDOH Screening 10/04/2023 10/03/2022 COVID-19 Vaccine ( season) 2023 03/29/2022, 03/18/2021, 08/13/2020, Additional history exists Influenza Vaccine (#1) 2023 , 01/01/2022, 01/05/2021, Additional history exists Depression Screening 03/05/2024 03/05/2023, 03/05/20 23 Tobacco Screening 03/05/2024 03/05/2023 Mammogram 05/12/2025 05/12/2024, 02/0 05/2023, 05/09/2023, Additional history exists DTaP/Tdap/Td Vaccines (3 - Td or Tdap) 10/03/2026 10/03/2016, 07/22/2006 Zoster Vaccines (1 of 2) 2027 Lipid Panel 11/11/2028 11/12/2023, 1111/2022, 08/08/2022, Additional history exists Colonoscopy 02/13/2031 Colorectal [...] Procedure Name Priority Date/Time Associated Diagnosis Comments HEMATOXYLIN AND EOSIN STAIN Routine 05/18/2024 1:33 PM EST BI MAMMOGRAM SCREENING TOMOSYNTHESIS BILATERAL Routine 05/12/2024 8:15 AM EST US ABDOMEN LIMITED Routine 04/27/2024 7: 26 PM EST URINALYSIS, COMPLETE, WITH REFLEX TO CULTURE Routine 04/27/2024 5:20 PM EST COMPREHENSIVE METABOLIC PANEL Routine 04/27/2024 10:38 AM EST CBC WITH AUTO DIFFERENTIAL Routine 04/27/2024 10:38 AM EST CULTURE, URINE, ROUTINE Routine 04/27/2024 12:00 AM EST LIPID PANEL, STANDARD Routine 11/12/2023 12:00 AM EDT Primary hypertension from Last 3 Months or Most Recently Relevant to Health Maintenance Results * Hematoxylin and Eosin Stain (05/18/2024 1:33 PM EST) 05/18/2024 1:33 PM EST 05/19/2024 8:37 AM EST [facility] - 05/20/2024 12:39 PM EST ----- ------- Name: Niya Haji ?Age/Sex: 49/F ? : 1975 Unit#: [id number] ?? Attend Dr: Arlette Blum CNM ?Re05/18/24 ?Status: DEP REF ? Location: HO.LNP ?Disch: ? ----- ------- SPEC : [id number] ?RECD: 05/19/24-836 ? STATUS: ??SOUT ? REQ NUM: [id number] ? CYRIL: 05/18/24-1333 ? SUBM DR: Arlette Blum CNM ? ENTERED: ??05/19/24-840 ?SP TYPE: Surgical ? OTHR DR: Mery Torre MD ? ORDERED: ??HE Stain/2, Gross Micro L4 ? Diagnosis ?? 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 atypia or carcinoma. ?Clinical History AUB ?Microscopic Description Microscopic sections reviewed. ? Material Received ?? Endometrial biopsy ? Gross Description Received in formalin labeled ?EMB? is a 2.0 x 2.0 x 0.45 cm aggregate of multiple irregular and tubular cast fragments of bernstein-brown tissue, mucus and blood, submitted in toto in a cassette labeled A. CEDS Copies To: ?? Arlette Blum CNM ?? [facility] ?? [address] [facility] [address] ?? [place] [address] ?? [phone] ?? Mery Torre MD ?? [facility] ?? [address] [facility] [address] ?? [place] [address] ?? [phone] ----- ------- Signed (signature on file) Patrica Agnieszka 05/20/24 1239 ? ----- ------- ? END OF REPORT ? us Generic External Data Provider LAB BLOOD ORDERAB LES Final Result [facility] [address] [place] [address] [phone] * BI Mammogram Screening Tomosynthesis Bilateral (05/12/2024 8:15 AM EST) Anatomical Region Laterality Modality Breast Bilateral Mammography 05/12/2024 8:15 AM EST Narrative 05/22/2024 1:30 PM EST ? [facility] [place] ? [address] [facility] ?[place] [address] ? Mammography Report ? Signed ? Patient: Raissa,Niya ?MR#: [id number] ? : 1975 ?Acct:[id number] ? Age/Sex: 49 / F ?ADM Date: 01/15/25 ? Loc: HO.MAMMO ? Attending Dr: Mery Torre MD ? Ordering Physician: Mery Torre MD ?Results: 2Benign ?? Findings ? Date of Service: 05/12/24 ?Follow Up: 1 Year From Orig ?? inal Mammogram ? Procedure(s): MM tomosynthesis screening BI ?? Accession Number(s): [id number] ? cc: Mery Torre MD ? EXAMINATION: [...] DD/ 0815 ? TD/TT: 05/12/24 0836 ? Bank Vault Attendant: ? Procedure Note Donotwinnieinterpreter, Image - 05/22/2024 [facility] [address] [place] [address] Mammography Report Signed Patient: Dawood HajiR#: [id number] : 1975Acct:[id number] Age/Sex: 49 / FADM Date: 05/12/24 Loc: HO.MAMMO Attending Dr: Mery Torre MD Ordering Physician: Mery Torre MDResults: 2Benign Findings Date of Service: 05/12/24Follow Up: 1 Year From Orig inal Mammogram Procedure(s): MM tomosynthesis screening BI Accession Number(s): [id number] cc: Mery Torre MD EXAMINATION: MM SCREENING [...] Ashley Avila DO 05/22/2024 01:27 PM EST Dictated By: Ashley Avila DO Signed By: <Electronically signed by Ashley Avila DO in OV> 05/22/24 1327 DD/ 4 TD/TT: 05/12/2436 Bank Vault Attendant: us Mery Torre MD IMG BI PROCEDURES Edited Result - Final * US Abdomen Limited (04/27/2024 7:26 PM EST) Anatomical Region Laterality Modality Abdomen Ultrasound 04/27/2024 7:26 PM EST Narrative 04/27/2024 7:27 PM EST ? [facility] ?[address] ?[place] [address] ? Ultrasound Report ? Signed ? Patient: Raissa,Niya ?MR#: [id number] ? : 1975 ?Acct:[id number] ? Age/Sex: 49 / F ?ADM Date: 04/27/24 ? Loc: HO.ED ? Attending Dr: ? Ordering Physician: Brianda Hand ?? Date of Service: 04/27/24 ?? Procedure(s): US abdomen limited ?? Accession Number(s): [id number] ? cc: Mery Torre MD; Brianda Hand ? CLINICAL HISTORY: RUQ pain ? US abdomen limited. ? COMPARISON: ?? US abdomen dated 06/26/22 at 08:36 EST ?? CT abdomen and pelvis dated 06/17/20 at 18:49 EST ? Technique: Real time sonographic imaging with Doppler imaging was ?? performed by the pulling unit floorhand. Multiple quality control representative static images were ?? saved for [...] ? DD/ 25 ? TD/TT: 04/27/241925 ? Bank Vault Attendant: ? Procedure Note Donotwinnieinterpreter, Image - 04/27/[address] [address] Ultrasound Report Signed Patient: Mahsa Haji#: [id number] : 1975Acct:[id number] Age/Sex: 49 / FADM Date: 04/27/24 Loc: HO.ED Attending Dr: Ordering Physician: Brianda Hand Date of Service: 04/27/24 Procedure(s): US abdomen limited Accession Number(s): [id number] cc: Mery Torre MD; Brianda Hand CLINICAL HISTORY: RUQ pain US abdomen limited. COMPARISON: US abdomen dated 06/26/22 at 08:[address] abdomen and pelvis dated 06/17/20 at 18:49 EST Technique: Real time sonographic imaging with Doppler imaging was performed by the pulling unit floorhand. Multiple quality control representative static images were saved for review. [...] in OV> 04/27/241926 DD/ 25 TD/TT: 04/27/241925 Bank Vault Attendant: us [facility] External Provider IMG US PROCEDURES Edited Result - Final * (ABNORMAL) Urinalysis, Complete, with Reflex to Culture (04/27/2024 5:20 PM EST) Color Urine Straw [facility] Appearance Urine Hazy [facility] PH 5.5 5.0 - 9.0 [facility] Glucose Urine UA Negative Negative mg/dL [facility] Urine Blood Small (1+)(A) Negative [facility] Specific [place] - Urine >=1.030(H) 1.005 - 1.025 [facility] Urine Protein Negative Neg-Trace mg/dL [facility] Urine Ketones 15 Negative mg/dL [facility] Nitrite Urine Negative Negative [facility] Leukocyte Esterase Urine Moderate (2+)(A) Negative [facility] RBC Urine 0-2 0 - 2 /HPF [facility] Urine WBC 6-10 0 - 5 /HPF [facility] Urine Squamous Epithelial Cell 3-5 0 - 2 /HPF [facility] TRANSITIONAL (EPITHELIAL) CELLS (#/HPF) IN URINE Present [facility] Urine Bacteria 2+ None Seen [facility] Hyaline Casts, Urine 3-5 0 - 2 /LPF [facility] 04/27/2024 5:20 PM EST 04/27/2024 5:24 PM EST Narrative [facility] - 04/27/2024 6:37 PM EST [id number], Clean Catch us Generic External Data Provider LAB URINE ORDERAB LES Final Result [facility] [address] [place] [address] [phone] * CBC auto differential (04/27/2024 10:38 AM EST) White Blood Count 6.3 4.8 - 10.8 X10*3/uL [facility] Red Blood Count 4.75 4.20 - 5.50 X10*6/uL [facility] Hemoglobin 13.4 12.0 - 16.0 g/dl [facility] Hematocrit 39.8 37.0 - 47.0 % [facility] Mean Corpuscular Volume 83.8 80.0 - 98.0 fL [facility] Mean Corpuscular Hemoglobin 28.2 27.0 - 33.0 pg [facility] Mean Corpuscular HGB Conc 33.7 31.0 - 35.0 g/dl [facility] Red Cell Distribution Width 12.8 11.0 - 16.0 % [facility] Platelet Count 269 160 - 400 X10*3/uL [facility] Mean Platelet Volume 11.1 9.4 - 12.3 fL [facility] Neutrophils Percent Auto 69.7 45 - 73 % [facility] Imm Gran Pct Auto 0.2 0.0 - 0.4 % [facility] Lymphocytes Percent Auto 20.5 20 - 40 % [facility] Monocytes Percent Auto 8.2 2 - 11 % [facility] Eosinophils Percent Auto 0.6 0 - 4 % [facility] Basophils Percent Auto 0.8 0 - 2 % [facility] NRBC Pct Auto 0.0 0.0 - 0.2 /100WBC [facility] Neutrophils Absolute Auto 4.4 2.0 - 8.3 x10*3/uL [facility] Imm Gran Abs Auto 0.01 0.00 - 0.03 X10*3/uL [facility] Lymphocytes Absolute Auto 1.3 1.2 - 4.9 X10*3/uL [facility] Monocytes Absolute Auto 0.5 0.1 - 1.2 X10*3/uL [facility] Eosinophils Absolute Auto 0.0 0.0 - 0.4 X10*3/uL [facility] Basophils Absolute Auto 0.1 0.0 - 0.2 X10*3/uL [facility] NRBC Abs Auto 0.000 0.0 - 0.012 X10*3/uL [facility] 04/27/2024 10:3 8 AM EST 04/27/2024 10:42 AM EST us Generic External Data Provider LAB BLOOD ORDERAB LES Final Result [facility] [address] [place] [address] [phone] * (ABNORMAL) Comprehensive Metabolic Panel (04/27/2024 10:38 AM EST) Sodium 141 135 - 145 mmol/L [facility] Potassium 3.9 3.3 - 5.1 mmol/L [facility] Chloride 112(H) 96 - 108 mmol/L [facility] Carbon Dioxide 22 22 - 29 mmol/L [facility] Anion Gap 11(L) 12 - 20 [facility] Urea Nitrogen (BUN) 11 9 - 16 mg/dL [facility] Creatinine, Serum 0.76 0.5 - 1.4 mg/dL [facility] Creatinine Clr Calc Pharmacy 98.9 [facility] Comment:Provided height and weight: 160.02 cm,92.533 kg.eGFR (calculated from the MDRD study equation) and eCrCl(calculated from the Cockcroft-Gault equation) are based ondifferent parameters and may not yield comparable results.If eCrCl result is absurd, please check patient'sheight/weight. Estimated Glomerular Filt Rate >60 [facility] Comment:Chronic Kidney Disea se: Estimated GFR < 60 mL/min/1.81n0Icdkdy Kidney Disease: Estimated GFR < 15 mL/min/1.73m2 Glucose 90 60 - 115 mg/dL [facility] Calcium 8.8 8.4 - 10.2 mg/dL [facility] Bilirubin, Total 0.4 0.0 - 1.0 mg/dL [facility] Aspartate Amino Transferase 17 5 - 31 U/L [facility] Alanine Aminotransferase 10 0 - 31 U/L [facility] Total Protein 6.8 6.5 - 8.0 g/dL [facility] Albumin Level 4.2 3.5 - 5.0 g/dL [facility] Alkaline Phosphatase 58 39 - 117 U/L [facility] 04/27/2024 10:3 8 AM EST 04/27/2024 10:42 AM EST Generic External Data Provider LAB BLOOD ORDERAB LES Final Result Performing Organization Address [facility]/ZIP Co de Phone Number [facility] [address] [place] [phone] * Culture, Urine, Routine (04/27/2024 12:00 AM EST) Urine Urine specimen obtained by clean catch procedure / Unknown 04/27/2024 04/27/2024 Comment:UACC Narrative [facility] - 04/29/2024 12:19 PM EST Urine Culture Report Result Urine Culture > 100,000 cfu/ml Urine Culture Mixed bacterial denita characteristic of Urine Culture urogenital contamination. Specimen Source: Urine clean catch Generic External Data Provider LAB MICROBIOLOGY - GENERAL ORDERABLES Final Result Performing Organization Address [facility] Co de Phone Number [facility] [address] [place] [phone] * Lipid Panel, Standard (11/12/2023 12:00 AM EDT) Triglycerides 36 <150 mg/dL [facility] Comment:Desirable Triglyceri de: less than 150 mg/dLBorderline High Triglyceride 150-199 mg/dLHigh Triglyceride: 200-499 mg/dLVery High Triglyceride: greater than or equal to 5OO mg/dL Cholesterol 125 <200 mg/dL [facility] Comment:Desirable Cholestero l: less than 200 mg/dLBorderline High Cholesterol: 200-239 mg/dLHigh Cholesterol: greater than 239 mg/dL LDL Cholesterol Calculated 63 <100 mg/dL [facility] Comment:Desirable LDL: less than 100 mg/dLNear Optimal/Above Optimal LDL: 110- 129 mg/dLBorderline High LDL: 130-159 mg/dLHigh LDL: 160-189 mg/dLVery High LDL: greater than or equal to 190 mg/dL HDL Cholesterol 55 >40 mg/dL [facility] Comment:Desirable HDL: great er than 40 mg/dL Note: This HDL assay may give artificially low results in patients with liver disease. Blood Venous blood specimen / Unknown 11/12/2023 11/12/2023 us Mery Torre MD LAB BLOOD ORDERABLES Final Resul t [facility] [address] [place] [address] [phone] from Last 3 Months or Most Recently Relevant to Health Maintenance Insurance [facility] Care Teams Trackman Relationship Specialty Start Date End Date Mery Torre MD [address] [place] [address] PCP - General Family Medicine 01/10/22"
--- OUTSIDE RECORDS SUMMARY | 2024-05-24 12:35 | XMS_ITS | Encounter Summary ---
Author Organization [employer] Address [address] [facility] 7t [place] [address] Care Team Providers Care Contracts Attorney Name Role Phone Mery Torre MD Primary Care Provider Encounter Details Date Type Department Care Team ([facility] st Contact Info) Description 10/22/2023 Abstract [facility] MED & PEDS [address] [place] [address] Mery Torre MD [address] [place], [place] [phone] Social History Tobacco Use Types Packs/Day Years [...] documented as of this encounter Care Teams Contracts Attorney Relationship Specialty Start Date End Date Mery Torre MD [address] [place] [phone] PCP - General Family Medicine 01/10/22 documented as of this encounter
--- OUTSIDE RECORDS SUMMARY | 2024-05-24 12:35 | XMS_ITS | Encounter Summary ---
Author Organization [employer] Address [address] [facility] [address]t [place] [address] Care Team Providers Care Accounting Supervisor Name Role Phone Mery Torre MD Primary Care Provider [phone] Reason for Visit * Reason Comments Med Refill Encounter Details Date Type Department Care Team ([facility] Contact Info) Description 04/07/2023 Refill [facility] MED & PEDS [address] [place] [address] Mery Torre MD [address] [place] [address] Social History Tobacco Use Types Packs/Day Years [...] documented as of this encounter Care Teams Accounting Supervisor Relationship Specialty Start Date End Date Mery Torre MD [address] [place] [address] PCP - General Family Medicine 01/10/22 documented as of this encounter
--- OUTSIDE RECORDS SUMMARY | 2024-05-24 12:35 | XMS_ITS | Encounter Summary ---
Author Organization [employer] Address [address] [facility] 7t [place] [address] Care Team Providers Care Implementation Engineer Name Role Phone Mery Torre MD Primary Care Provider [phone] Encounter Details Date Type Department Care Team (Late st Contact Info) Description 05/18/2024 Orders Only GENERIC EXTERNAL DATA [...] EOSIN STAIN Routine 05/18/2024 1:33 PM EST documented in this encounter Results * Hematoxylin and Eosin Stain (05/18/2024 1:33 PM EST) 05/18/2024 1:33 PM EST 05/19/2024 8:37 AM EST Narrative [facility] - 05/20/2024 12:39 PM EST ----- ------- Name: Niya Haji ?Age/Sex: 49/F ? : 1975 Unit#: [id number] ?? Attend Dr: Arlette Blum CNM ?Re05/18/24 ?Status: DEP REF ? Location: HO.LNP ?Disch: ? ----- ------- SPEC : [id number] ?RECD: 05/19/24 ? STATUS: ??SOUT ? REQ NUM: [id number] ? CYRIL: 05/18/24 ? SUBM DR: Arlette Blum CNM ? ENTERED: ??05/19/24 ?SP TYPE: Surgical ? OTHR DR: Mery [...] Copies To: ?? Arlette Blum CNM ?? [facility] ?? [address] ?? [place] [address] ?? [phone] ?? Mery Torre MD ?? [facility] ?? [address] [facility] [address] ?? [place] [address] ?? [phone] ----- ------- Signed (signature on file) Patrica Aaron 05/20/24 1239 ? ----- ------- ? END OF REPORT ? us Generic External Data Provider LAB BLOOD ORDERAB LES Final Result [facility] [address] [facility] [place] [address] [phone] documented in this encounter Visit Diagnoses Not on filedocumented in this encounter Additional Health Concerns Assessment Noted Time PHQ-9 Depression Total Score: 7 03/05/20 23 11:02 AM EST documented as of this encounter Care Teams Implementation Engineer Relationship Specialty Start Date End Date Mery Torre MD [address] [place] [address] PCP - General Family Medicine 01/10/22 documented as of this encounter
--- OUTSIDE RECORDS SUMMARY | 2024-05-24 12:35 | XMS_ITS | Encounter Summary ---
Author Organization [employer] Address [address] [facility] 7t [place] [address] Care Team Providers Care Stopper Grinder Name Role Phone Mery Torre MD Primary Care Provider [phone] Encounter Details Date Type Department Care Team (Late st Contact Info) Description 04/16/2022 Orders Only [facility] MEDICINE [address] [place] [address] Mery Torre MD [address] [place] [address] [phone] Pain (Primary Dx) Social History Tobacco Use [...] pain documented in this encounter Care Teams Stopper Grinder Relationship Specialty Start Date End Date Mery Torre MD [address] [place] [address] PCP - General Family Medicine 01/10/22 documented as of this encounter
--- OUTSIDE RECORDS SUMMARY | 2024-05-24 12:35 | XMS_ITS | Encounter Summary ---
Author Organization [employer] Address [address] [facility] [address] [place] [address] Care Team Providers Care Assembler Unit Name Role Phone Mery Torre MD Primary Care Provider Encounter Details Date Type Department Care Team (Late st Contact Info) Description 09/10/2022 Orders Only [facility] MED & PEDS [address] [place] [address] Meg Cervantes LPN Social History Tobacco Use [...] on filedocumented in this encounter Care Teams Assembler Unit Relationship Specialty Start Date End Date Mery Torre MD [address] [place] [address] PCP - General Family Medicine 01/10/22 documented as of this encounter
--- OUTSIDE RECORDS SUMMARY | 2024-05-24 12:35 | XMS_ITS | Encounter Summary ---
Author Organization [employer] Address [address] [facility] 7t [place] [address] Care Team Providers Care Correctional Substance Abuse Counselor Name Role Phone Mery Torre MD Primary Care Provider Reason for Visit * Reason Comments Med Refill Encounter Details Date Type Department Care Team ([facility] st Contact Info) Description 03/08/2024 Refill [facility] MEDICINE [address] [place] [address] Mery Torre MD [address] [place] [address] Hypertension, unspecified type Social History Tobacco Use [...] documented as of this encounter Care Teams Correctional Substance Abuse Counselor Relationship Specialty Start Date End Date Mery Torre MD [address] [place] [address] PCP - General Family Medicine 01/10/22 documented as of this encounter
--- OUTSIDE RECORDS SUMMARY | 2024-05-24 12:35 | XMS_ITS | Encounter Summary ---
Author Organization [facility] Address [address] [place] [address] Care Team Providers Care Refinery Operator Crude Unit Name Role Phone Mery Torre MD Primary Care Provider [phone] Reason for Visit * Reason Onset Date Comments Med Refill 05/13/2024 Encounter Details Date Type Department Care Team ([facility] st Contact Info) Description 05/13/2024 Telephone [facility] [place] [address] [facility] [address] [place] [address] Aria Fernandez PA [address] [place] [address] Med Refill Social History Tobacco Use Types [...] on filedocumented in this encounter Care Teams Refinery Operator Crude Unit Relationship Specialty Start Date End Date Mery Torre MD [address] [place] [address] PCP - General 05/30/22 documented as of this encounter
== END 2024-05-24 09:09 | disposition home or self-care (01) ==
PROVIDERS: PCP Student in an Organized Health Care Education/Training Program; Visit Provider Urology
DX: N39.8 Other specified disorders of urinary system (principal); R39.15 Urgency of urination; R32 Unspecified urinary incontinence; Z13.9 Encounter for screening, unspecified
CPT/HCPCS: 99215

== ENCOUNTER → 2024-05-24 08:12 | Outpatient (BNVA) | payer OTHER, SELFPAY | PROVIDERS: PCP Student in an Organized Health Care Education/Training Program; Visit Provider Urology | DX: R32 Unspecified urinary incontinence (principal); R39.15 Urgency of urination; N39.8 Other specified disorders of urinary system; Z79.899 Other long term (current) drug therapy | CPT/HCPCS: 51798; 81003; 99212 ==

== ENCOUNTER → 2024-05-25 07:49 | Outpatient (BNVA) | payer OTHER, SELFPAY | PROVIDERS: PCP Student in an Organized Health Care Education/Training Program; Visit Provider Advanced Practice Midwife ==

== ENCOUNTER 2024-09-13 08:18 | Outpatient (REF) | payer OTHER, SELFPAY ==
--- NOTE | ~2024-09-13 | XR_ITS ---
EXAMINATION: XR SACRUM COCCYX 2 OR MORE VIEWS HISTORY: Z96.82 - Presence of neurostimulator COMPARISON: There are no prior studies for comparison. FINDINGS: Three views of the sacrum and coccyx are submitted. Osseous mineralization is normal. No fracture is seen. The sacroiliac joints are maintained. A sacral stimulator is seen on the right. XR/XR sacrum coccyx min 2V IMPRESSION: Sacral stimulators are in place on the right. Electronically signed by: Gregory Brody MD 09/13/2024 11:10 AM EDT
--- OUTSIDE RECORDS SUMMARY | 2024-09-13 11:16 | XMS_ITS | Encounter Summary ---
Author Organization [employer] Address [address] [facility] 7t [place] [address] Care Team Providers Care Platinumsmith Name Role Phone Mery Torre MD Primary Care Provider [phone] Reason for Visit * Reason Comments Med Refill Encounter Details Date Type Department Care Team ([facility] Contact Info) Description 04/07/2023 Refill [facility] CH[facility] MED & PEDS [address] [place] [address] Mery Torre MD [address] [place] [address] Social History Tobacco Use Types Packs/Day Years [...] documented as of this encounter Care Teams Platinumsmith Relationship Specialty Start Date End Date Mery Torre MD [address] [place] [id number] PCP - General Family Medicine 01/10/22 documented as of this encounter
--- OUTSIDE RECORDS SUMMARY | 2024-09-13 11:16 | XMS_ITS | Encounter Summary ---
Author Organization [employer] Address [address] [facility] 7t [place] [address] Care Team Providers Care Objects Conservator Name Role Phone Mery Torre MD Primary Care Provider [phone] Encounter Details Date Type Department Care Team ([facility] st Contact Info) Description 07/16/2022 Orders Only [facility] CHC MED & PEDS [address] [place] [address] Mery Torre MD [address] [place] [address] Social History Tobacco Use Types Packs/Day Years [...] on filedocumented in this encounter Care Teams Objects Conservator Relationship Specialty Start Date End Date Mery Torre MD [address] [place] [id number] PCP - General Family Medicine 01/10/22 documented as of this encounter
--- OUTSIDE RECORDS SUMMARY | 2024-09-13 11:16 | XMS_ITS | Encounter Summary ---
Author Organization [employer] Address [address] [facility] 7[address] [place] [address] Care Team Providers Care Handstitching Machine Collar Feller Name Role Phone Mery Torre MD Primary Care Provider [phone] Reason for Visit * Reason Comments Med Refill Encounter Details Date Type Department Care Team ([facility] Contact Info) Description 02/05/2024 Refill [facility] CHC MED & PEDS [address] [place] [address] Mery Torre MD [address] [place] [address] Social History Tobacco Use Types Packs/Day Years [...] documented as of this encounter Care Teams Handstitching Machine Collar Feller Relationship Specialty Start Date End Date Mery Torre MD [address] [place] [phone] PCP - General Family Medicine 01/10/22 documented as of this encounter
--- OUTSIDE RECORDS SUMMARY | 2024-09-13 11:16 | XMS_ITS | Encounter Summary ---
Author Organization [employer] Address [address] [facility] [address] [place] [address] Care Team Providers Care Suit Attendant Name Role Phone Mery Torre MD Primary Care Provider [phone] Encounter Details Date Type Department Care Team (Late st Contact Info) Description 09/13/2024 Orders Only [facility] External Provider, [facility] Social History Tobacco Use Types Packs/Day Years [...] Procedure Name Priority Date/Time Associated Diagnosis Comments XR SACRUM COCCYX 2+ VIEWS Routine 09/13/2024 10:40 AM EDT documented in this encounter Results * XR Sacrum Coccyx 2+ Views (09/13/2024 10:40 AM EDT) Anatomical Region Laterality Modality Sacrum, Coccyx Radiographic Shanthi ging 09/13/2024 10:4 0 AM EDT Narrative 09/13/2024 11:13 AM EDT ? [facility] ?[address] ?[place] [address] ?XRay Report ? Signed ? Patient: Raissa,Niya ?MR#: [id number] ? : 1975 ?Acct:[id number] ? Age/Sex: 49 / F ?ADM Date: 09/13/24 ? Loc: HO.XRAY ? Attending Dr: Daniel Haskins MD ? Ordering Physician: Daniel Haskins MD ?? Date of Service: 09/13/24 ?? Procedure(s): XR sacrum coccyx min 2V ?? Accession Number(s): [id number] ? cc: Daniel Haskins MD; Mery Torre MD ? EXAMINATION: ??XR SACRUM COCCYX 2 OR MORE VIEWS ? HISTORY: Z96.82 - Presence of neurostimulator ? COMPARISON: There are no prior studies for comparison. ? FINDINGS: ??Three views of the sacrum and coccyx are submitted. Osseous ?? mineralization is normal. No fracture is seen. The sacroiliac joints ?? are maintained. A sacral stimulator is seen on the right. ? XR/XR sacrum coccyx min 2V ?? IMPRESSION: ?? Sacral stimulators are in place on the right. ? Electronically signed by: ??Gregory Brody MD ??09/13/2024 11:10 AM EDT ?? RP ? Dictated By: ?Gregory Brody MD ? Signed By: ?<Electronically signed by Gregory Brody MD in OV> ?09/13/24 1110 ? DD/ 1040 ? TD/TT: 09/13/24 1100 ? Cotton Expert: ? Procedure Note Jeanine, Ольга - 09/13/2024 [place] [address] XRay Report Signed Patient: Mahsa Haji#: [id number] : 1975Acct:[id number] Age/Sex: 49 / FADM Date: 09/13/24 Loc: HO.ANNITAAY Attending Dr: Daniel Haskins MD Ordering Physician: Daniel Haskins MD Date of Service: 09/13/24 Procedure(s): XR sacrum coccyx min 2V Accession Number(s): [id number] cc: Daniel Haskins MD; Mery Torre MD EXAMINATION: XR SACRUM COCCYX 2 OR MORE VIEWS HISTORY: Z96.82 - Presence of neurostimulator COMPARISON: There are no prior studies for comparison. FINDINGS: Three views of the sacrum and coccyx are submitted. Osseous mineralization is normal. No fracture is seen. The sacroiliac joints are maintained. A sacral stimulator is seen on the right. XR/XR sacrum coccyx min 2V IMPRESSION: Sacral stimulators are in place on the right. Electronically signed by: Gregory Brody MD 09/13/2024 11:10 AM EDT Dictated By: Gregory Brody MD Signed By: <Electronically signed by Gregory Brody MD in OV> 09/13/24 1110 DD/ 1040 TD/TT: 09/13/24 1100 Cotton Expert: [facility] External Provider IMG XR PROCEDURES Edited Result - Final documented in this encounter Visit Diagnoses Not on filedocumented in this encounter Additional Health Concerns Assessment Noted Time PHQ-9 Depression Total Score: 7 03/05/20 23 11:02 AM EST documented as of this encounter Care Teams Suit Attendant Relationship Specialty Start Date End Date Mery Torre MD [address] [place] [id number] PCP - General Family Medicine 01/10/22 documented as of this encounter
--- OUTSIDE RECORDS SUMMARY | 2024-09-13 11:16 | XMS_ITS | Encounter Summary ---
Author Organization [employer] Address [address] [facility] [address] [place] [address] Care Team Providers Care Larriman Helper Name Role Phone Mery Torre MD Primary Care Provider [phone] Reason for Visit * Reason Comments Med Refill Encounter Details Date Type Department Care Team ([facility] st Contact Info) Description 03/08/2024 Refill [facility] MEDICINE [address] [place] [address] Mery Torre MD [address] [place] [address] Hypertension, unspecified type Social History Tobacco Use [...] documented as of this encounter Care Teams Larriman Helper Relationship Specialty Start Date End Date Mery Torre MD [address] [place] [address] PCP - General Family Medicine 01/10/22 documented as of this encounter
--- OUTSIDE RECORDS SUMMARY | 2024-09-13 11:16 | XMS_ITS | Encounter Summary ---
Author Organization [employer] Address [address] [facility] [address] [place] [address] Care Team Providers Care Nutrition And Dietetics Instructor Name Role Phone Mery Torre MD Primary Care Provider [phone] Encounter Details Date Type Department Care Team ([facility] st Contact Info) Description 10/22/2023 Abstract [facility] CHC MED & PEDS [address] [place] [address] Mery Torre MD [address] [place], [place] [phone] Social History Tobacco Use Types Packs/Day Years [...] documented as of this encounter Care Teams Nutrition And Dietetics Instructor Relationship Specialty Start Date End Date Mery Torre MD [address] [place] [address] PCP - General Family Medicine 01/10/22 documented as of this encounter
--- OUTSIDE RECORDS SUMMARY | 2024-09-13 11:16 | XMS_ITS | Encounter Summary ---
Author Organization [employer] Address [address] [facility] 7t [place] [address] Care Team Providers Care Reproduction Machine Loader Name Role Phone Mery Torre MD Primary Care Provider [phone] Encounter Details Date Type Department Care Team (Late st Contact Info) Description 04/16/2022 Orders Only [facility] MEDICINE [address] [place] [address] Mery Torre MD [address] [place], [place] [phone] Pain (Primary Dx) Social History Tobacco Use [...] pain documented in this encounter Care Teams Reproduction Machine Loader Relationship Specialty Start Date End Date Mery Torre MD [address] [place] [address] PCP - General Family Medicine 01/10/22 documented as of this encounter
--- OUTSIDE RECORDS SUMMARY | 2024-09-13 11:16 | XMS_ITS | Encounter Summary ---
Author Organization [employer] Address [address] [facility] [address] [place] [address] Care Team Providers Care Personalized Living Manager Nurse Name Role Phone Mery Torre MD Primary Care Provider Reason for Visit * Reason Onset Date Comments Results 03/29/2022 Encounter Details Date Type Department Care Team ([facility] st Contact Info) Description 03/29/2022 Telephone [facility] CHC MED & PEDS [address] [place] [address] Mery Torre MD [address] [place] [address] Results Social History Tobacco Use Types Packs/Day [...] - 04/11/2022 3:38 PM EST Pt insurance [facility] denied pt for lido/prilocn 2.5 * Telephone Encounter - Piedad Strickland - 04/11/2022 10:57 AM EST TC from pt requesting Pulmonary function test results . Pt spoke with [facility] and they stated they had already faxed results in . Please contact [phone]. * Telephone Encounter - Raine Rojas - 04/05/2022 12:24 PM EST Tc from pt requesting a call regarding test results for sleep study, and pulmonary function test. * Telephone Encounter - Alexander Shepherd RN - 04/01/2022 11:47 AM EST TC placed, spoke to requesting PFT results that was done last Friday at [facility]. Pt was also requesting sleep [...] on filedocumented in this encounter Care Teams Personalized Living Manager Nurse Relationship Specialty Start Date End Date Mery Torre MD [address] [place] [address] PCP - General Family Medicine 01/10/22 documented as of this encounter
--- OUTSIDE RECORDS SUMMARY | 2024-09-13 11:16 | XMS_ITS | Clinical Summary ---
Author Organization [employer] Address [address] [facility] [address]t [place] [address] Care Team Providers Care Wares Sorter Name Role Phone Mery Torre MD Primary Care Provider [phone] Allergies Active Allergy Reactions Criticality Noted Date [...] Problem Noted Date Diagnosed Date History of [place] (myocardial infarction) 10/03/2022 Neurogenic bladder 07/03/2022 Anxiety 07/03/2022 HTN (hypertension) 04/16/2022 Encounters Date Type Department Care Team Description 09/13/2024 Orders Only [facility] External Provider, [facility] 08/23/2024 Refill [facility] [address] [place] [address] Mery Torre MD 07/28/2024 Refill [facility] [address] [place] [address] Mery Torre MD 06/22/2024 Refill [facility] [address] [place] [address] Mery Torre MD 06/22/2024 Refill [facility] [address] [place] [address] Mery Torre MD from Last 3 Months [...] Tobacco Screening 03/05/2024 03/05/2023 Mammogram 05/12/2025 05/12/2024, 05/2023, 05/09/2023, Additional history exists DTaP/Tdap/Td Vaccines (3 - Td or Tdap) 10/03/2026 10/03/2016, 07/22/2006 Zoster Vaccines (1 of 2) 2027 Lipid Panel 11/11/2028 11/12/2023, 11/2022, 08/08/2022, Additional history exists Colonoscopy 02/13/2031 [...] 2+ VIEWS Routine 09/13/2024 10:40 AM EDT BI MAMMOGRAM SCREENING TOMOSYNTHESIS BILATERAL Routine 05/12/2024 8:15 AM EST LIPID PANEL, STANDARD Routine 11/12/2023 12:00 AM EDT Primary hypertension from Last 3 Months or Most Recently Relevant to Health Maintenance Results * XR Sacrum Coccyx 2+ Views (09/13/2024 10:40 AM EDT) Anatomical Region Laterality Modality Sacrum, Coccyx Radiographic Shanthi ging 09/13/2024 10:4 0 AM EDT Narrative 09/13/2024 11:13 AM EDT ? [facility] ?[address] ?[place] [address] ?XRay Report ? Signed ? Patient: Raissa,Niya ?MR#: [id number] ? : 1975 ?Acct:[id number] ? Age/Sex: 49 / F ?ADM Date: 09/13/24 ? Loc: HO.XRAY ? Attending Dr: Daniel Haskins MD ? Ordering Physician: Daniel Haskins MD ?? Date of Service: 09/13/24 ?? Procedure(s): XR sacrum coccyx min 2V ?? Accession Number(s): [id number] ? cc: Daniel Haskins MD; Mery Torre [...] DD/ 1040 ? TD/TT: 09/13/24 1100 ? Spray Stainer: ? Procedure Note Ольга Solorzano - 09/13/[address] [address] ANNITAay Report Signed Patient: Mahsa Haji#: [id number] : 1975Acct:[id number] Age/Sex: 49 / FADM Date: 09/13/24 Loc: TAMARA Attending Dr: Daniel Haskins MD Ordering Physician: Daniel Haskins MD Date of Service: 09/13/24 Procedure(s): XR sacrum coccyx min 2V Accession Number(s): [id number] cc: Daniel Haskins MD; Mery Torre MD [...] Gregory Brody MD 09/13/2024 11:10 AM EDT RP Dictated By: Gregory Brody MD Signed By: <Electronically signed by Gregory Brody MD in OV> 09/13/24 1110 DD/ 1040 TD/TT: 09/13/24 1100 Spray Stainer: [facility] External Provider IMG XR PROCEDURES Edited Result - Final * BI Mammogram Screening Tomosynthesis Bilateral (05/12/2024 8:15 AM EST) Anatomical Region Laterality Modality Breast Bilateral Mammography 05/12/2024 8:15 AM EST Narrative 05/22/2024 1:30 PM EST ? [facility] [place] ? [address] [facility] ?[place] [address] ? Mammography Report ? Signed ? Patient: Raissa,Niya ?MR#: [id number] ? : 1975 ?Acct:[id number] ? Age/Sex: 49 / F ?ADM Date: 01/15/25 ? Loc: HO.MAMMO ? Attending Dr: Mery Torre MD ? Ordering Physician: Mery Torre MD ?Results: 2Benign ?? Findings ? Date of Service: 05/12/24 ?Follow Up: 1 Year From Orig ?? inal Mammogram ? Procedure(s): MM tomosynthesis screening BI ?? Accession Number(s): [id number] ? cc: Mery Torre MD ? EXAMINATION: [...] DD/ 0815 ? TD/TT: 05/12/24 0836 ? Spray Stainer: ? Procedure Note Donotwinnieinterpreter, Image - 05/22/2024 [facility] [address] [place] [address] Mammography Report Signed Patient: Mahsa Haji#: [id number] : 1975Acct:[id number] Age/Sex: 49 / FADM Date: 05/12/24 Loc: HO.MAMMO Attending Dr: Mery Torre MD Ordering Physician: Mery Torre MDResults: 2Benign Findings Date of Service: 05/12/24Follow Up: 1 Year From Orig inal Mammogram Procedure(s): MM tomosynthesis screening BI Accession Number(s): [id number] cc: Mery Torre MD EXAMINATION: MM SCREENING [...] 05/22/24 1327 DD/ 0815 TD/TT: 05/12/24 0836 Spray Stainer: Mery Torre MD IMG BI PROCEDURES Edited Result - Final * Lipid Panel, Standard (11/12/2023 12:00 AM EDT) Triglycerides 36 <150 mg/dL [facility] Comment:Desirable Triglyceri de: less than 150 mg/dLBorderline High Triglyceride 150-199 mg/dLHigh Triglyceride: 200-499 mg/dLVery High Triglyceride: greater than or equal to 5OO mg/dL Cholesterol 125 <200 mg/dL [facility] Comment:Desirable Cholestero l: less than 200 mg/dLBorderline High Cholesterol: 200-239 mg/dLHigh Cholesterol: greater than 239 mg/dL LDL Cholesterol Calculated 63 <100 mg/dL [facility] Comment:Desirable LDL: less than 100 mg/dLNear Optimal/Above Optimal LDL: 110- 129 mg/dLBorderline High LDL: 130-159 mg/dLHigh LDL: 160-189 mg/dLVery High LDL: greater than or equal to 190 mg/dL HDL Cholesterol 55 >40 mg/dL [facility] Comment:Desirable HDL: great er than 40 mg/dL Note: This HDL assay may give artificially low results in patients with liver disease. Blood Venous blood specimen / Unknown 11/12/2023 11/12/2023 us Mery Torre MD LAB BLOOD ORDERABLES Final Resul t [facility] [address] [place], [place] [id number] [phone] from Last 3 Months or Most Recently Relevant to Health Maintenance Insurance [employer] < [address] [place] [id number] Care Teams Wares Sorter Relationship Specialty Start Date End Date Mery Torre MD [address] [place] [id number] PCP - General Family Medicine 01/10/22
--- OUTSIDE RECORDS SUMMARY | 2024-09-13 11:16 | XMS_ITS | Encounter Summary ---
Author Organization [employer] Address [address] [facility] [address] [place] [address] Care Team Providers Care Chief Deputy Clerk/Bailiff Name Role Phone Mery Torre MD Primary Care Provider [phone] Encounter Details Date Type Department Care Team (Late st Contact Info) Description 09/10/2022 Orders Only [facility] [address] [place] [address] Meg Cervantes LPN Social History Tobacco Use [...] on filedocumented in this encounter Care Teams Chief Deputy Clerk/Bailiff Relationship Specialty Start Date End Date Mery Torre MD [address] [place] [id number] PCP - General Family Medicine 01/10/22 documented as of this encounter
--- OUTSIDE RECORDS SUMMARY | 2024-09-13 11:16 | XMS_ITS | Encounter Summary ---
Author Organization [employer] Address [address] [facility] [address] [place] [address] Care Team Providers Care Boathouse Keeper Name Role Phone Mery Torre MD Primary Care Provider [phone] Encounter Details Date Type Department Care Team (Late st Contact Info) Description 01/14/2024 Orders Only [facility] [address] [place] [address] Provider, MD Claudia Social History Tobacco Use [...] documented as of this encounter Care Teams Boathouse Keeper Relationship Specialty Start Date End Date Mery Torre MD [address] [place] [address] PCP - General Family Medicine 01/10/22 documented as of this encounter
--- OUTSIDE RECORDS SUMMARY | 2024-09-13 11:16 | XMS_ITS | Clinical Summary ---
Author Organization [facility] it[facility] Address [address] [place] [address] Care Team Providers Care Mechanism Assembler Name Role Phone Mery Torre MD Primary Care Provider [phone] Medications docusate sodium (Colace) 100 mg capsule [...] age to complete this topic Care Teams Mechanism Assembler Relationship Specialty Start Date End Date Mery Torre MD [address] [place] [id number] PCP - General 05/30/22
--- OUTSIDE RECORDS SUMMARY | 2024-09-13 11:16 | XMS_ITS | Encounter Summary ---
Author Organization [employer] Address [address] [place] [address] [address] [place] [address] Care Team Providers Care Camera Person Name Role Phone Mery Torre MD Primary Care Provider Encounter Details Date Type Department Care Team (Late st Contact Info) Description 04/12/2022 Orders Only [facility] [address] [place] [address] Mery Torre MD [address] [place] [phone] Social History Tobacco Use Types Packs/Day Years [...] on filedocumented in this encounter Care Teams Camera Person Relationship Specialty Start Date End Date Mery Torre MD [address] [place] [address] PCP - General Family Medicine 01/10/22 documented as of this encounter
== END 2024-09-13 08:19 | disposition home or self-care (01) ==
LOC: HO.XRAY 08:18
PROVIDERS: PCP Student in an Organized Health Care Education/Training Program; Visit Provider Urology
DX: Z96.82 Presence of neurostimulator (principal); N39.8 Other specified disorders of urinary system; R39.15 Urgency of urination; R32 Unspecified urinary incontinence; Z13.9 Encounter for screening, unspecified; Z98.890 Other specified postprocedural states
CPT/HCPCS: 51728; 51741; 51784; 51797; 72220; 81003; 99212

== ENCOUNTER 2024-09-13 08:18 | Outpatient (AMB) | payer OTHER, SELFPAY ==
--- OUTSIDE RECORDS SUMMARY | 2024-09-13 08:24 | XMS_ITS | Encounter Summary ---
Author Organization [employer] Address [address] [facility] [address] 7[address] [place] [address] Care Team Providers Care Snow Shoveler Name Role Phone Mery Torre MD Primary Care Provider [phone] Encounter Details Date Type Department Care Team (Late st Contact Info) Description 01/14/2024 Orders Only [facility] MED & PEDS [address] [place] [address] Provider, MD Claudia Social History Tobacco Use Types Packs/Day Years [...] documented as of this encounter Care Teams Snow Shoveler Relationship Specialty Start Date End Date Mery Torre MD [address] [place] [address] PCP - General Family Medicine 01/10/22 documented as of this encounter
--- OUTSIDE RECORDS SUMMARY | 2024-09-13 08:24 | XMS_ITS | Encounter Summary ---
Author Organization [employer] Address [address] [facility] [address] [place] [address] Care Team Providers Care Middle School English Teacher Name Role Phone Mery Torre MD Primary Care Provider [phone] Encounter Details Date Type Department Care Team (Late st Contact Info) Description 09/10/2022 Orders Only [facility] MED & PEDS [address] [place] [address] Meg Cervantes LPN Social History Tobacco Use [...] on filedocumented in this encounter Care Teams Middle School English Teacher Relationship Specialty Start Date End Date Mery Torre MD [address] [place] [address] PCP - General Family Medicine 01/10/22 documented as of this encounter
--- OUTSIDE RECORDS SUMMARY | 2024-09-13 08:24 | XMS_ITS | Encounter Summary ---
Author Organization [employer] Address [address] [place] [address] Care Team Providers Care Inspector Dials Name Role Phone Mery Torre MD Primary Care Provider [phone] Reason for Visit * Reason Comments Med Refill Encounter Details Date Type Department Care Team ([facility] st Contact Info) Description 03/08/2024 Refill [facility] MED[facility]INE [address] [place] [address] Mery Torre MD 505 [place] [address] Hypertension, unspecified type Social History Tobacco Use [...] documented as of this encounter Care Teams Inspector Dials Relationship Specialty Start Date End Date Mery Torre MD [address] [place] [id number] PCP - General Family Medicine 01/10/22 documented as of this encounter
--- OUTSIDE RECORDS SUMMARY | 2024-09-13 08:24 | XMS_ITS | Encounter Summary ---
Author Organization [employer] Address [address] 7[address] [place] [address] Care Team Providers Care Stove Fitter Name Role Phone Mery Torre MD Primary Care Provider [phone] Encounter Details Date Type Department Care Team ([facility] st Contact Info) Description 10/22/2023 Abstract [facility] MED & PEDS [address] [place] [address] Mery Torre MD 505 [place], [place] [id number] Social History Tobacco Use Types Packs/Day Years [...] documented as of this encounter Care Teams Stove Fitter Relationship Specialty Start Date End Date Mery Torre MD [address] [place] [address] PCP - General Family Medicine 01/10/22 documented as of this encounter
--- OUTSIDE RECORDS SUMMARY | 2024-09-13 08:24 | XMS_ITS | Encounter Summary ---
Author Organization [employer] Address [address] [place] [address] [address] [place] [address] Care Team Providers Care Patient Office Rep Name Role Phone Mery Torre MD Primary Care Provider [phone] Encounter Details Date Type Department Care Team (Late st Contact Info) Description 04/12/2022 Orders Only [facility] [address] [place] [address] Mery Torre MD [address] [place] [address] Social History Tobacco Use Types Packs/Day Years [...] on filedocumented in this encounter Care Teams Patient Office Rep Relationship Specialty Start Date End Date Mery Torre MD [address] [place] [address] PCP - General Family Medicine 01/10/22 documented as of this encounter
--- OUTSIDE RECORDS SUMMARY | 2024-09-13 08:24 | XMS_ITS | Encounter Summary ---
Author Organization [employer] Address [address] [facility] 7t [place] [address] Care Team Providers Care Head Packager Name Role Phone Mery Torre MD Primary Care Provider [phone] Encounter Details Date Type Department Care Team (Late st Contact Info) Description 04/16/2022 Orders Only [facility] MEDICINE [address] [place] [address] Mery Torre MD 505 [place], [place] [phone] Pain (Primary Dx) Social History Tobacco Use [...] pain documented in this encounter Care Teams Head Packager Relationship Specialty Start Date End Date Mery Torre MD [address] [place] [address] PCP - General Family Medicine 01/10/22 documented as of this encounter
--- OUTSIDE RECORDS SUMMARY | 2024-09-13 08:24 | XMS_ITS | Clinical Summary ---
Author Organization [employer] Address [address] [facility] 7t [place] [address] Care Team Providers Care Audit Control Clerk Name Role Phone Mery Torre MD Primary Care Provider [phone] Allergies Active Allergy Reactions Criticality Noted Date [...] the morning, at noon, and at bedtime. 3 Active ARIPiprazole (Abilify) 15 MG tablet Take 7.5 mg by mouth in the morning. Active pantoprazole (ProtoNix) 40 MG EC tablet Take 40 mg by mouth before breakfast. Do not crush, chew, or split. Active cholecalciferol VITAMIN D (Vitamin D-3) 50 MCG (1999) capsule TAKE 1 CAPSULE BY MOUTH EVERY DAY 90 capsule 3 4 Active amLODIPine (Norvasc) 10 MG tablet TAKE 1 TABLET(10 MG) BY MOUTH IN THE MORNING 90 tablet 1 4 Active calcium carbonate 1500 (600 Ca) MG tablet TAKE 1 TABLET BY MOUTH TWICE DAILY 180 tablet 11 4 Active atorvastatin (Lipitor) 10 MG tabletIndicatio ns:Hypertension , unspecified type Take 1 tablet (10 mg) by mouth Once per day. TAKE 1 TABLET(10 MG) BY MOUTH IN THE MORNING 90 tablet 3 4 Active losartan (Cozaar) 25 MG tablet TAKE 1 TABLET(25 MG) BY MOUTH IN THE MORNING 30 tablet 11 4 Active thiamine (Vitamin B-1) 50 MG tablet TAKE 2 TABLETS BY MOUTH EVERY MORNING 60 tablet 11 5 Active folic acid (Folvite) 400 MCG tablet TAKE 1 TABLET BY MOUTH EVERY MORNING 30 tablet 11 5 Active cyanocobalamin (Vitamin B-12) 500 MCG tablet TAKE 1 TABLET(500 MCG) BY MOUTH IN THE MORNING 90 tablet 3 5 Active cetirizine (ZyrTEC) 10 MG tablet TAKE 1 TABLET BY MOUTH EVERY MORNING 90 tablet 1 5 Active aspirin 81 MG chewable tablet CHEW AND SWALLOW 1 TABLET BY MOUTH EVERY MORNING 90 tablet 1 5 Active aspirin 81 MG chewable tablet CHEW AND SWALLOW 1 TABLET BY MOUTH EVERY MORNING 90 tablet 3 4 025 Discontinued cetirizine (ZyrTEC) 10 MG tablet TAKE 1 TABLET BY MOUTH EVERY MORNING 30 tablet 5 4 025 Discontinued Active Problems Problem Noted Date Diagnosed Date History of RI (myocardial infarction) 10/03/2022 Neurogenic bladder 07/03/2022 Anxiety 07/03/2022 HTN (hypertension) 04/16/2022 Encounters Date Type Department Care Team Description 08/23/2024 Refill [facility] MED [facility] PEDS [address] [place] [address] Mery Torre MD 07/28/2024 Refill [facility] [address] [place] [address] Mery Torre MD 06/22/2024 Refill [facility] [address] [place] [address] Mery Torre MD 06/22/2024 Refill [facility] [address] [place] [address] Mery Torre MD from Last 3 Months Immunizations Immunization Administration Dates Next Due Hep B, adult [...] of 2) 2027 Lipid Panel 11/11/2028 11/12/2023, 11/11/2022, 08/08/2022, Additional history exists Colonoscopy 02/13/2031 Colorectal [...] patient's age to complete this topic Meningococcal B Vaccine Aged Out No l onger eligible based on patient's age to complete this topic Meningococcal Vaccine Aged Out No carine chuy eligible based on patient's age to complete this topic Pneumococcal Vaccine: Pediatrics (0 to 5 Years) and At-Risk Patients (6 to 49) Years) Aged Out No longer eligible based [...] TOMOSYNTHESIS BILATERAL Routine 05/12/2024 8:15 AM EST LIPID PANEL, STANDARD Routine 11/12/2023 12:00 AM EDT Primary hypertension from Last 3 Months or Most Recently Relevant to Health Maintenance Results * BI Mammogram Screening Tomosynthesis Bilateral (05/12/2024 8:15 AM EST) Anatomical Region Laterality Modality Breast Bilateral Mammography 05/12/2024 8:15 AM EST Narrative 05/22/2024 1:30 PM EST ? [facility] ? [address] ?[place] [address] ? Mammography Report ? Signed ? Patient: Raissa,Niya ?MR#: [id number] ? : 1975 ?Acct:[id number] ? Age/Sex: 49 / F ?ADM Date: 05/12/24 ? Loc: HO.MAMMO ? Attending Dr: Mery Torre MD ? Ordering Physician: Mery Torre MD ?Results: 2Benign ?? Findings ? Date of Service: 05/12/24 ?Follow Up: 1 Year From Orig ?? inal Mammogram ? Procedure(s): MM tomosynthesis screening BI ?? Accession Number(s): [id number] ? cc: Mery Torre MD ? EXAMINATION: [...] DD/ 0815 ? TD/TT: 05/12/24 0836 ? Anodic Treater: ? Procedure Note Donotwinnieinterpreter, Image - 05/22/2024 [facility] [address] [place] [address] Mammography Report Signed Patient: Mahsa Haji#: [id number] : 1975Acct:[id number] Age/Sex: 49 / FADM Date: 05/12/24 Loc: HO.MAMMO Attending Dr: Mery Torre MD Ordering Physician: Mery Torre MDResults: 2Benign Findings Date of Service: 05/12/24Follow Up: 1 Year From Orig inal Mammogram Procedure(s): MM tomosynthesis screening BI Accession Number(s): [id number] cc: Mery Torre MD EXAMINATION: MM SCREENING [...] by: Ashley Avila DO 05/22/2024 01:27 PM [facility] Dictated By: Ashley Avila DO Signed By: <Electronically signed by Ashley Avila DO in OV> 05/22/24 1327 DD/ 0815 TD/TT: 05/12/24 0836 Anodic Treater: Mery Torre MD IMG BI PROCEDURES Edited Result - Final * Lipid Panel, Standard (11/12/2023 12:00 AM EDT) Triglycerides 36 <150 mg/dL [facility] Comment:Desirable Triglyceri de: less than 150 mg/dLBorderline High Triglyceride 150-199 mg/dLHigh Triglyceride: 200-499 mg/dLVery High Triglyceride: greater than or equal to 5OO mg/dL Cholesterol 125 <200 mg/dL [facility] Comment:Desirable Cholestero l: less than 200 mg/dLBorderline High Cholesterol: 200-239 mg/dLHigh Cholesterol: greater than 239 mg/dL LDL Cholesterol Calculated 63 <100 mg/dL [facility] Comment:Desirable LDL: less than 100 mg/dLNear Optimal/Above Optimal LDL: 110- 129 mg/dLBorderline High LDL: 130-159 mg/dLHigh LDL: 160-189 mg/dLVery High LDL: greater than or equal to 190 mg/dL HDL Cholesterol 55 >40 mg/dL [facility] Comment:Desirable HDL: great er than 40 mg/dL Note: This HDL assay may give artificially low results in patients with liver disease. Blood Venous blood specimen / Unknown 11/12/2023 11/12/2023 Mery Torre MD LAB BLOOD ORDERABLES Final Resul t [facility] [address] [place] [address] [phone] from Last 3 Months or Most Recently Relevant to Health Maintenance Insurance [facility] < 65 [place] [id number] Care Teams Audit Control Clerk Relationship Specialty Start Date End Date Mery Torre MD [address] [place] [phone] PCP - General Family Medicine 01/10/22
--- OUTSIDE RECORDS SUMMARY | 2024-09-13 08:24 | XMS_ITS | Encounter Summary ---
Author Organization [employer] Address [address] [facility] 7[address] [place] [address] Care Team Providers Care Tobacco Sieve Operator Name Role Phone Mery Torre MD Primary Care Provider [phone] Reason for Visit * Reason Onset Date Comments Results 03/29/2022 Encounter Details Date Type Department Care Team ([facility] st Contact Info) Description 03/29/[address] [facility] CH[facility] MED & PEDS [address] [place] [address] Mery Torre MD [address] [place] [address] Results Social History Tobacco Use Types Packs/Day [...] - 04/11/2022 3:38 PM EST Pt insurance [facility] denied pt for lido/prilocn 2.5 * Telephone Encounter - Piedad Strickland - 04/11/2022 10:57 AM EST TC from pt requesting Pulmonary function test results . Pt spoke with [facility] and they stated they had already faxed results in . Please contact [phone]. * Telephone Encounter - Raine Rojas - 04/05/2022 12:24 PM EST Tc from pt requesting a call regarding test results for sleep study, and pulmonary function test. * Telephone Encounter - Alexander Shepherd RN - 04/01/2022 11:47 AM EST TC placed, spoke to requesting PFT results that was done last Friday at [facility]. Pt was also requesting sleep [...] on filedocumented in this encounter Care Teams Tobacco Sieve Operator Relationship Specialty Start Date End Date Mery Torre MD [address] [place] [address] PCP - General Family Medicine 01/10/22 documented as of this encounter
--- OUTSIDE RECORDS SUMMARY | 2024-09-13 08:24 | XMS_ITS | Encounter Summary ---
Author Organization [employer] Address [address] [facility] 7t [place] [address] Care Team Providers Care Recycling Program Manager Name Role Phone Mery Torre MD Primary Care Provider [phone] Encounter Details Date Type Department Care Team ([facility] st Contact Info) Description 07/16/2022 Orders Only [facility] CH[facility] MED & PEDS [address] [place] [address] Mery Torre MD [address] [place] [address] Social History Tobacco Use Types Packs/Day Years [...] on filedocumented in this encounter Care Teams Recycling Program Manager Relationship Specialty Start Date End Date Mery Torre MD [address] [place] [address] PCP - General Family Medicine 01/10/22 documented as of this encounter
--- OUTSIDE RECORDS SUMMARY | 2024-09-13 08:24 | XMS_ITS | Encounter Summary ---
Author Organization [employer] Address [address] [facility] 7t [place] [address] Care Team Providers Care Supervisor Self Service Store Name Role Phone Mery Torre MD Primary Care Provider [phone] Reason for Visit * Reason Comments Med Refill Encounter Details Date Type Department Care Team ([facility] Contact Info) Description 04/07/2023 Refill [facility] CH[facility] MED & PEDS [address] [place] [address] Mery Torre MD [address] [place] [address] Social History Tobacco Use Types Packs/Day Years [...] documented as of this encounter Care Teams Supervisor Self Service Store Relationship Specialty Start Date End Date Mery Torre MD [address] [place] [address] PCP - General Family Medicine 01/10/22 documented as of this encounter
--- OUTSIDE RECORDS SUMMARY | 2024-09-13 08:24 | XMS_ITS | Encounter Summary ---
Author Organization [employer] Address [address] [facility] 7t [place] [address] Care Team Providers Care Grain Shoveler Name Role Phone Mery Torre MD Primary Care Provider [phone] Reason for Visit * Reason Comments Med Refill Encounter Details Date Type Department Care Team ([facility] Contact Info) Description 02/05/2024 Refill [facility] MED & PEDS [address] [place] [address] Mery Torre MD [address] [place] [address] Social History Tobacco Use Types Packs/Day Years [...] documented as of this encounter Care Teams Grain Shoveler Relationship Specialty Start Date End Date Mery Torre MD [address] [place] [address] PCP - General Family Medicine 01/10/22 documented as of this encounter
--- OUTSIDE RECORDS SUMMARY | 2024-09-13 08:24 | XMS_ITS | Clinical Summary ---
Author Organization [facility] Address [address] [place] [address] Care Team Providers Care Physician Practice Manager Name Role Phone Mery Torre MD Primary Care Provider [phone] Medications docusate sodium (Colace) 100 mg capsule Take 1 capsule (100 mg total) by mouth 2 (two) times a day. 180 each 2 05/13/2024 Active Surgical History Surgery Date Site/Laterality Comments TOTAL [...] Allergic rhinitis 12/30/2005 DX:Allergic rh initis Hyperprolactinemia (CMS/HCC V24) 04/11/2020 DX:Hyperprolactinemia (HCC) PCOS (polycystic ovarian syndrome) 04/11/2020 DX:PCOS [...] Recorded Sex Assigned at Not on file Legal Sex Female 10:14 AM EST Gender Identity Not on file Sexual Orientation [...] Last Done Comments Breast Cancer Screening 1975 Hepatitis A Vaccines (1 of 2 - Risk 2-dose series) 1996 Pneumococcal Vaccine: Pediatrics (0 to 5 Years) and At-Risk Patients (6 to 64 Years) (1 of 2 - PCV) 1996 Cervical Cancer Screening: P ap Smear 1998 DTaP,Tdap,and Td Vaccines (2 - Td or Tdap) 07/22/2016 07/22/2006 Colorectal Cancer Screening: Colonoscopy 04/06/2022 Depression Screening 04/06/2022 HIV Screening 04/06/2022 Hepatitis C Screening 04/06/2022 Social Influencers of Health Screening 04/06/2022 COVID-19 Vaccine (1 - 2023-2 5 season) 2023 Influenza Vaccine (Season Ended) 2024 01/30/2008, 02/02/2007 Hepatitis B Vaccines Completed 02/04/2007, 09/04/2006, [...] age to complete this topic Care Teams Physician Practice Manager Relationship Specialty Start Date End Date Mery Torre MD [address] [place] [phone] PCP - General 05/30/22
--- NOTE | 2024-09-13 09:23 | MHC.OFFVIS ---
Intake Visit Reasons: UDS Allergies Penicillins Allergy (Severe, Verified 05/25/24 07:49) ITCHING/SWELLING doxycycline [DOXYCYCLINE] Allergy (Intermediate, Verified 05/25/24 07:49) SEVERE ITCHING, pruritis penicillin G Allergy (Unknown, Verified 05/25/24 07:49) Unknown rosuvastatin [From Crestor] Allergy (Unknown, Verified 05/25/24 07:49) Unknown tetracycline Allergy (Unknown, Verified 05/25/24 07:49) Unknown clindamycin Allergy (Verified 05/25/24 07:49) Gastrointestinal Upset famotidine Allergy (Verified 05/25/24 07:49) Anaphylaxis Sulfa (Sulfonamide Antibiotics) Allergy (Verified 05/25/24 07:49) Chest Pain mirabegron [From Myrbetriq] Adverse Reaction (Severe, Verified 05/25/24 07:49) tachycardia escitalopram [From Lexapro] Adverse Reaction (Unknown, Verified 05/25/24 07:49) Palpitations oseltamivir [From Tamiflu] Adverse Reaction (Unknown, Verified 05/25/24 07:49) Palpitations rabeprazole Adverse Reaction (Unknown, Verified 05/25/24 07:49) Chest Pain nirmatrelvir [From Paxlovid] Adverse Reaction (Verified 05/25/24 07:49) Headache ritonavir [From Paxlovid] Adverse Reaction (Verified 05/25/24 07:49) Headache HPI Comments Details: 09/13/24--Niya is here for urodynamics. The patient has complaints of urinary urgency. Interpretation: During the filling phase there was normal sensation, sensory urgency was noted, strong desire was noted at 197 mL. Findings were consistent with outflow obstruction likely from prior pelvic floor surgeries. Leakage was not observed during cough or Valsalva. EMG- Appropriate changes in the waveforms were noted through out the study. I have discussed treatment to be focused on sensory urgency. She had benefits from initial replaced 4 sacral neuromodulation. We will check a sacral x-ray to identify the current lead placement as well as arrange for [employer] rep evaluation for reprogramming. Also discussed tibial nerve stimulation has a consideration. Follow-up for office cystoscopy. 05/24/24--Niya is a 49-year-old female who has been seen by Dr. Anne and presents to me for evaluation of urinary symptoms of urgency and urinary incontinence. The patient has had multiple pelvic surgeries including a mesh sling with revision and autologous rectus fascia sling. She states that after the revision she had problems with emptying and had to push to empty and recalls developing prolapse. She was seen by Uro brancher for prolapse repair. She states that she initially had Botox for urinary urgency and then had InterStim neuromodulation which worked well. Due to lead malfunction the lead needed to be changed which was done by Dr. Anne 07/15/2022. She states with a 2nd lead placement she did not tolerate programming due to rectal fluttering which was very uncomfortable. She states that on Ester 04/27/2024 she was seen in the emergency room due to UTI and abdominal pain. She was given antibiotics, an abdominal ultrasound was done which was within normal limits. She is currently on oxybutynin 15 mg daily, she has some dry mouth which is not bothersome, she stopped the Myrbetriq due to heart racing. I have discussed re-evaluate with urodynamics she is instructed to stopped the oxybutynin 5 days prior. The InterStim is currently turned off. 45 minutes spent in review of records pertaining to this visit and including [id number] discussion with the patient and documentation of this visit. Review of chart: Failed conservative therapy medications - Myrbetriq, VESIcare, tolterodine, and Gemtesa InterStim previously 07/15/22 InterStim revision - primary effect is rectal flutter when turned on Previous evaluation with Dr. Hendricks Urethral mesh had been placed by an outside urologist Dr. Hendricks had removed this mesh uses become infected and replace this with abdominal fascia Prior prolapse repair with Dr Hannah Eckert [facility] Medical History Anxiety Sleep apnea IBS (irritable bowel syndrome) Insomnia GERD (gastroesophageal reflux disease) Hyperlipidemia TIA (transient ischemic attack) Coronary artery disease Morbid obesity Overactive bladder Partial bowel obstruction Hospital discharge follow-up Abnormal CT of the abdomen Hyperkalemia Small bowel obstruction Lab test negative for COVID-19 virus History of urinary incontinence History of GA (myocardial infarction) Rectal prolapse Arthritis Bipolar II disorder Back pain Optic neuritis Fibromyalgia Dyspnea Obesity Surgical History History of surgery History of carpal tunnel release of both wrists Hx of thumb surgery History of pubovaginal sling (10/19/19) H/O cystoscopy (06/08/19) History of total right knee replacement (06/2016) History of total left knee replacement (TKR) (11/2016) Family History Mother Afib Heart disease Father Cardiac failure Respiratory failure Brother Afib Brother Hypertension Brother Hypertension Son No problems noted. Social History Household Members: Family Housing: House Alcohol intake: current Alcohol intake frequency: holidays/special occasions only Comment: sleeping Patient Tobacco Use Status: Former Tobacco user Tobacco use type: Cigarette Cigarette Packs Per Day: 1 Cigarettes Per Day: 20 Years Smoked: 20 Second Hand Smoke Exposure: No Substance Use Type: Marijuana service: No Current occupational status: unemployed Review of Systems Const All systems reviewed & are unremarkable except as noted in HPI and below Reports no additional complaints Eyes Reports no additional complaints ENT Reports no additional complaints Card Reports no additional complaints Resp Reports no additional complaints GI Reports no additional complaints Reports as per HPI Musc Reports no additional complaints Skin/Breast Reports system reviewed and no additional complaints, except as documented Neuro Reports no additional complaints Psych Reports no additional complaints Endo Reports no additional complaints Omar/Lymph Reports no additional complaints Aller/Immun Reports no additional complaints Office Procedures Urodynamic Studies Consent Discussed risk and benefit or proposed procedure with the patient. Information consent for procedure given to the patient. Discussed technical aspects, risks, benefits and alternatives in full. Addressed all of the patient's questions and concerns regarding the procedure. The patient demonstrated knowledge and understanding. They wish to proceed with this procedure. Preparation The patient was prepped in the usual manner. A manager credit risk was present and in the room. Genitalia was prepped with betadine solution in a sterile manner. Procedure Complex Uroflow Complex uroflow performed by: Daniel Haskins Maximum urinary flow rate (mL/second): 13 Voiding time (seconds): 4 mins. 31 seconds Voided volume (mL): 399ml Residual urine (mL):130ml Cystometrogram ? Vaginal/rectal catheter type: Vaginal First sensation at (mL): 18 mL First desire at (mL): 35 mL Strong desire to void occurred at (mL): 197 mL Strong desire detrusor pressure (cm H2O): 0.7 Maximum Capacity (mL): 316 mL Voiding Summary Voided with max detrusor pressure of (cm H2O): 161 Maximum flow rate (mL/second): 13 mL/s Voided volume (mL): ? 278 Calculated PVR: 38 mL Patient emptied more urine while sitting on toilet once catheters removed. Stress Testing Stress Test at 198 mL: Absent leak with Valsalva, Absent leak with cough Stress Test at 317 mL: Absent leak with Valsalva, Absent leak with cough DO Dry: Absent DO Wet: Absent Patient reports sensation to void throughout the whole test with no DO activity. Prep: The patient was prepped in the usual manner. A manager credit risk was present and in the room. Genitalia was prepped with betadine solution in a sterile manner. 79645-Klnrqqxscvdeew w/ AUTOMATIC BRINE MIXER OPERATOR 85586-Ybiefts-Yebiuuzppoqt 44712-Glsg/Urinary Muscle Study 26997-Avkzy-Olwzcvahk Pressure Test Procedure code (CPT) selection complete Office Meds nitrofurantoin monohydrate/macrocrystals 100 mg capsule Performing Provider: Daniel Haskins MD [facility] Administered by: Meg Price RN on 09/13/24 09:23 Dose Route Admin Location Dispensed Lot Number Expiration Date NDC Pet Care Attendant 100 mg PO 1 cap Results AMB Urinalysis, Automated UA Leukoctes 0 Josseline/uL Last Edit by Meg Price RN on 09/13/24 09:31 UA Nitrite Negative Last Edit by Meg Price RN on 09/13/24 09:31 UA Urobilinogen 0.2 mg/dL Last Edit by Meg Price RN on 09/13/24 09:31 UA Protein 0 mg/dL Last Edit by Meg Price RN on 09/13/24 09:31 UA pH 6.0 Last Edit by Meg Price RN on 09/13/24 09:31 UA Blood 0 Dustin/uL Last Edit by Meg Price RN on 09/13/24 09:31 UA Specific [place] 1.00 Last Edit by Meg Price RN on 09/13/24 09:31 UA Ketone Negative Last Edit by Meg Price RN on 09/13/24 09:31 UA Bilirubin 0 mg/dL Last Edit by Meg Price RN on 09/13/24 09:31 UA Glucose 0 mg/dL Last Edit by Meg Price RN on 09/13/24 09:31 Results Reviewed Results Reviewed: Laboratory Last Values Urine pH (Auto) 6.0 09/13/24 09:12 Specific [place] (Auto) 1.00 09/13/24 09:12 Urine Protein (Auto) 0 mg/dL 09/13/24 09:12 Glucose (UA)(Auto) 0 mg/dL 09/13/24 09:12 Urine Ketones (Auto) Negative 09/13/24 09:12 Urine Blood (Auto) 0 Dustin/uL 09/13/24 09:12 Urine Nitrite (Auto) Negative 09/13/24 09:12 Urine Bilirubin (Auto) 0 mg/dL 09/13/24 09:12 Urine Urobilinogen (Auto) 0.2 mg/dL 09/13/24 09:12 Leukocyte Esterase (Auto) 0 Josseline/uL 09/13/24 09:12 Assessment & Plan Assessment & Plan (1) Urgency of micturition: Code(s): R39.15 - Urgency of urination Category: Medical (2) Voiding dysfunction: Code(s): N39.8 - Other specified disorders of urinary system Category: Medical (3) Sacral neurostimulator in situ: Code(s): Z96.82 - Presence of neurostimulator Category: Medical Orders: Orders AMB Urodynamics Studies Today N39.8 - Other specified disorders of urinary system, R32 - Unspecified urinary incontinence AMB Urinalysis Automated Today Z13.9 - Encounter for screening, unspecified XR sacrum coccyx min 2V Today N39.8 - Other specified disorders of urinary system, R39.15 - Urgency of urination, Z96.82 - Presence of neurostimulator Coding Level of Care Code Est Pt Level 3 (13083) Diagnoses Urgency of micturition R39.15 Voiding dysfunction N39.8 Sacral neurostimulator in situ Z96.82 CPT Codes Urodynamic Studies - CPT: 99577-Nyqroducgcsiwg w/ AUTOMATIC BRINE MIXER OPERATOR ([id number]) Urodynamic Studies - CPT: 97512-Hiuiurr-Tyemtqxrpdjg ([id number]) Urodynamic Studies - CPT: 55705-Gizd/Urinary Muscle Study ([id number]) Urodynamic Studies - CPT: 76993-Oqrbp-Aaewzbwyt Pressure Test ([id number])
== END 2024-09-13 10:24 | disposition home or self-care (01) ==
LOC: HO.HUSH 08:19
PROVIDERS: PCP Student in an Organized Health Care Education/Training Program; Visit Provider Urology
DX: R32 Unspecified urinary incontinence (principal); N39.8 Other specified disorders of urinary system; Z13.9 Encounter for screening, unspecified
CPT/HCPCS: 51728; 51741; 51784; 51797

== ENCOUNTER → 2024-09-13 10:40 | Outpatient (BNV) | payer OTHER, SELFPAY | PROVIDERS: PCP Student in an Organized Health Care Education/Training Program; Visit Provider Radiology Diagnostic Radiology | DX: Z96.82 Presence of neurostimulator (principal) | CPT/HCPCS: 72220 ==

== ENCOUNTER 2024-10-28 09:25 | Outpatient (AMB) | payer OTHER, SELFPAY ==
--- NOTE | 2024-10-28 09:39 | A.OFFVIS_ITS ---
Intake Visit Reasons: cysto/FU Xray Intake Note: Patient is present for cysto/Xray follow up * Xray 09/13 Urology Med: Oxybutynin Antibiotic Allergy: Doxycycline, Penicillin, Tetracycline,Clindamycin, Sulfa Blood Thinner: Aspirin Lot#: [id number] Exp:05-02-27 Environmental Research Project Manager Required: No Accompanied by: Self / Same As Patient Allergies Penicillins Allergy (Severe, Verified 10/28/24 09:40) ITCHING/SWELLING doxycycline (DOXYCYCLINE) Allergy (Intermediate, Verified 10/28/24 09:40) SEVERE ITCHING, pruritis penicillin G Allergy (Unknown, Verified 10/28/24 09:40) Unknown rosuvastatin (From Crestor) Allergy (Unknown, Verified 10/28/24 09:40) Unknown tetracycline Allergy (Unknown, Verified 10/28/24 09:40) Unknown clindamycin Allergy (Verified 10/28/24 09:40) Gastrointestinal Upset famotidine Allergy (Verified 10/28/24 09:40) Anaphylaxis Sulfa (Sulfonamide Antibiotics) Allergy (Verified 10/28/24 09:40) Chest Pain mirabegron (From Myrbetriq) Adverse Reaction (Severe, Verified 10/28/24 09:40) tachycardia escitalopram (From Lexapro) Adverse Reaction (Unknown, Verified 10/28/24 09:40) Palpitations oseltamivir (From Tamiflu) Adverse Reaction (Unknown, Verified 10/28/24 09:40) Palpitations rabeprazole Adverse Reaction (Unknown, Verified 10/28/24 09:40) Chest Pain nirmatrelvir (From Paxlovid) Adverse Reaction (Verified 10/28/24 09:40) Headache ritonavir (From Paxlovid) Adverse Reaction (Verified 10/28/24 09:40) Headache HPI Comments Details: 10/28/24--Here for Cystoscopy. Intractable urinary incontinence. The patient s tates that the sacral nerve pacemaker worked initially but does not control her urinary symptoms anymore. Results A-uqf-npsuht--09/13/24--sacral lead appears to be in the correct position Cystoscopy Findings - no suspicious lesions. Schedule reprogramming with the [employer] technical service representative 09/13/24--Niya is here for urodynamics. The patient has complaints of urinary urgency. Interpretation: During the filling phase there was normal sensation, sensory urgency was noted, strong desire was noted at 197 mL. Findings were consistent with outflow obstruction likely from prior pelvic floor surgeries. Leakage was not observed during cough or Valsalva. EMG- Appropriate changes in the waveforms were noted through out the study. I have discussed treatment to be focused on sensory urgency. She had benefits from initial replaced 4 sacral neuromodulation. We will check a sacral x-ray to identify the current lead placement as well as arrange for [employer] rep evaluation for reprogramming. A lso discussed tibial nerve stimulation has a consideration. Follow-up for office cystoscopy. 05/24/24--Niya is a 49-year-old female who has been seen by Dr. Anne and presents to me for evaluation of urinary symptoms of urgency and urinary incontinence. The patient has had multiple pelvic surgeries including a mesh sling with revision and autologous rectus fascia sling. She states that after the revision she had problems with emptying and had to push to empty and recalls developing prolapse. She was seen by Uro tax assistant for prolapse repair. She states that she initially had Botox for urinary urgency and then had InterStim neuromodulation which worked well. Due to lead malfunction the lead needed to be changed which was done by Dr. Anne 07/15/2022. She states with a 2nd lead placement she did not tolerate programming due to rectal fluttering which was very uncomfortable. She states that on Ester 04/27/2024 she was seen in the emergency room due to UTI and abdominal pain. She was given antibiotics, an abdominal ultrasound was done which was within normal limits. She is currently on oxybutynin 15 mg daily, she has some dry mouth which is not bothersome, she stopped the Myrbetriq due to heart racing. I have discussed re- evaluate with urodynamics she is instructed to stopped the oxybutynin 5 days prior. The InterStim is currently turned off. 45 minutes spent in review of records pertaining to this visit and including [id number] discussion with the patient and documentation of this visit. Review of chart: Failed conservative therapy medications - Myrbetriq, VESIcare, tolterodine, and Gemtesa InterStim previously 07/15/22 InterStim revision - primary effect is rectal flutter when turned on Previous evaluation with Dr. Hendricks Urethral mesh had been placed by an outside urologist Dr. Hendricks had removed this mesh uses become infected and replace this with abdominal fascia Prior prolapse repair with Dr Hannah Eckert [facility] Medical History Anxiety Sleep apnea IBS (irritable bowel syndrome) Insomnia GERD (gastroesophageal reflux disease) Hyperlipidemia TIA (transient ischemic attack) Coronary artery disease Morbid obesity Overactive bladder Partial bowel obstruction Hospital discharge follow-up Abnormal CT of the abdomen Hyperkalemia Small bowel obstruction Lab test negative for COVID-19 virus History of urinary incontinence History of [place] (myocardial infarction) Rectal prolapse Arthritis Bipolar II disorder Back pain Optic neuritis Fibromyalgia Dyspnea Obesity Surgical History History of surgery History of carpal tunnel release of both wrists Hx of thumb surgery History of pubovaginal sling (10/19/19) H/O cystoscopy (06/08/19) History of total right knee replacement (06/2016) History of total left knee replacement (TKR) (11/2016) Family History Mother Afib Heart disease Father Cardiac failure Respiratory failure Brother Afib Brother Hypertension Brother Hypertension Son No problems noted. Social History Household Members: Family Housing: House Alcohol intake: current Alcohol intake frequency: holidays/special occasions only Comment: sleeping Patient Tobacco Use Status: Former Tobacco user Tobacco use type: Cigarette Cigarette Packs Per Day: 1 Cigarettes Per Day: 20 Years Smoked: 20 Second Hand Smoke Exposure: No Substance Use Type: Marijuana service: No Current occupational status: unemployed Office Procedures Cystoscopy Consent Discussed risk and benefit or proposed procedure with the patient. Information consent for procedure given to the patient. Discussed technical aspects, risks, benefits and alternatives in full. Addressed all of the patient's questions and concerns regarding the procedure. The patient demonstrated knowledge and understanding. They wish to proceed with this procedure. Preparation The patient was prepped in the usual manner. A machine driller was present and in the room. Genitalia was prepped with betadine solution in a sterile manner. Lidocaine Jelly 2% was placed into the urethra and 16Fr flexible Olympus cystoscope was inserted into the meatus after adequate lubrication. Procedure Time out per protocol performed. Speculum used as indicated for adequate visualization of urethra, the flexible cystoscope is passed transurethrally: The bladder was inspected in its entirety with utilization retroflexion displaying: Tumor(s): no suspicious bladder lesions visualized Trabeculation: Mild Mucosal Erthema: NA Orifices: normal shape and position Urethra: normal Cystoscopy findings: mild trabeculations, no suspicious bladder lesions visualized [id number] DISPOSABLE SCOPE URO-G FLEXIBLE SCOPE Procedure code (CPT) selection complete Office Meds lidocaine HCl 2 % mucosal jelly in applicator Performing Provider: Daniel Haskins MD Performing Location: [facility] Administered by: Meg Price RN on 10/28/24 09:58 Dose Route Admin Location Dispensed Lot Number Expiration Date NDC Stone Cleaner 10 mL intra-urethral 20 mL ciprofloxacin HCl 500 mg tablet Performing Provider: Daniel Haskins MD Performing Location: [facility] Administered by: Meg Price RN on 10/28/24 09:58 Dose Route Admin Location Dispensed Lot Number Expiration Date NDC Stone Cleaner 500 mg PO 1 tab phenazopyridine 200 mg tablet Performing Provider: Daniel Haskins MD Performing Location: [facility] Administered by: Meg Price RN on 10/28/24 09:58 Dose Route Admin Location Dispensed Lot Number Expiration Date NDC Stone Cleaner 200 mg PO 1 tab Results AMB Urinalysis, Automated UA Leukoctes 0 Josseline/uL Last Edit by TORSTEN Ocampo on 10/28/24 11:40 UA Nitrite Negative Last Edit by TORSTEN Ocampo on 10/28/24 11:40 UA Urobilinogen 3.5 mg/dL Last Edit by TORSTEN Ocampo on 10/28/24 11:4 0 UA Protein 0 mg/dL Last Edit by TORSTEN Ocampo on 10/28/24 11:40 UA pH 6.0 Last Edit by TORSTEN Ocampo on 10/28/24 11:40 UA Blood 80 Dustin/uL Last Edit by TORSTEN Ocampo on 10/28/24 11:40 UA Specific Albion 1.005 Last Edit by TORSTEN Ocampo on 10/28/24 11: 40 UA Ketone Negative Last Edit by TORSTEN Ocampo on 10/28/24 11:40 UA Bilirubin 0 mg/dL Last Edit by TORSTEN Ocampo on 10/28/24 11:40 UA Glucose 0 mg/dL Last Edit by TORSTEN Ocampo on 10/28/24 11:40 AMB Urinalysis, Automated UA Leukoctes 0 Josseline/uL Last Edit by Rebecca Abernathy on 10/28/24 16:28 UA Nitrite Negative Last Edit by Rebecca Abernathy on 10/28/24 16:28 UA Urobilinogen 3.5 mg/dL Last Edit by Rebecca Abernathy on 10/28/24 16:28 UA Protein 0 mg/dL Last Edit by Rebecca Abernathy on 10/28/24 16:28 UA pH 6.0 Last Edit by Rebecca Abernathy on 10/28/24 16:28 UA Blood 80 Dustin/uL Last Edit by Rebecca Abernathy on 10/28/24 16:28 UA Specific Albion 1.005 Last Edit by Rebecca Abernathy on 10/28/24 16:28 UA Ketone Negative Last Edit by Rebecca Abernathy on 10/28/24 16:28 UA Bilirubin 0 mg/dL Last Edit by Rebecca Abernathy on 10/28/24 16:28 UA Glucose 0 mg/dL Last Edit by Rebecca Abernathy on 10/28/24 16:28 Results Reviewed Results Reviewed: Laboratory Last Values Urine pH (Auto) 6.0 10/28/24 15:45 Specific Albion (Auto) 1.005 10/28/24 15:45 Urine Protein (Auto) 0 mg/dL 10/28/24 15:45 Glucose (UA)(Auto) 0 mg/dL 10/28/24 15:45 Urine Ketones (Auto) Negative 10/28/24 15:45 Urine Blood (Auto) 80 Dustin/uL 10/28/24 15:45 Urine Nitrite (Auto) Negative 10/28/24 15:45 Urine Bilirubin (Auto) 0 mg/dL 10/28/24 15:45 Urine Urobilinogen (Auto) 3.5 mg/dL 10/28/24 15:45 Leukocyte Esterase (Auto) 0 Josseline/uL 10/28/24 15:45 Date of Service: 09/13/24 EXAMINATION: XR SACRUM COCCYX 2 OR MORE VIEWS HISTORY: Z96.82 - Presence of neurostimulator COMPARISON: There are no prior studies for comparison. FINDINGS: Three views of the sacrum and coccyx are submitted. Osseous mineralization is normal. No fracture is seen. The sacroiliac joints are maintained. A sacral stimulator is seen on the right. Date of Service: 04/27/24 US abdomen limited. COMPARISON: US abdomen dated 06/26/22 at 08:[address] abdomen and pelvis dated 06/17/20 at 18:49 EST Technique: Real time sonographic imaging with Doppler imaging was performed by the site specialist. Multiple technical service representative static images were saved for review. FINDINGS: The visualized portions of the pancreas appear normal. The liver has normal echotexture. The main portal vein is antegrade. Liver, right lobe size: 9.6 cm, diminutive The gallbladder is normal in size. No cholelithiasis or sludge identified. There is a negative sonographic Jang's sign. Gallbladder wall: 2 mm, normal. Common bile duct: 2 mm, normal. Right kidney: Cortical medullary differentiation is maintained. No calculus or focal parenchymal abnormality identified. No hydronephrosis. Right kidney length: 12.4 cm No free intraperitoneal fluid identified. IMPRESSION: 1. No cause for patient's symptoms identified. No evidence of cholecystitis. No evidence of right renal obstruction. Assessment & Plan Assessment & Plan (1) Urgency of micturition: Code(s): R39.15 - Urgency of urination Category: Medical (2) Voiding dysfunction: Code(s): N39.8 - Other specified disorders of urinary system Category: Medical (3) Sacral neurostimulator in situ: Code(s): Z96.82 - Presence of neurostimulator Category: Medical Plan Schedule reprogramming with the [employer] technical service representative Orders: Orders AMB Cystoscopy 10/28/24 N31.8 - Other neuromuscular dysfunction of bladder, N39.41 - Urge incontinence, N39.8 - Other specified disorders of urinary system, R39.15 - Urgency of urination AMB Urinalysis Automated 10/28/24 Z13.9 - Encounter for screening, unspecified AMB Urinalysis Automated 10/28/24 N32.81 - Overactive bladder, N39.41 - Urge in continence, N39.8 - Other specified disorders of urinary system, R32 - Unspecified urinary incontinence, R39.15 - Urgency of urination Patient Instructions: The patient had an opportunity to ask questions regarding treatment plan. The patient expressed understanding and agreement with the above treatment plan. The patient is aware they should contact our office by phone for worsening of their current condition or the appearance of new symptoms. Compliance is encouraged with any medications and followup testing that is ordered. It is a privilege to be allowed the opportunity to participate in the urologic care of your patient. If you have any questions or concerns regarding treatment for the above conditions please do not hesitate to contact me. The office telephone contact is [phone]. This note is constructed in part using voice recognition software. While every effort has been made to ensure accuracy antique finisher errors may have been included. Yours sincerely, Daniel Haskins MD Coding Level of Care Code Procedure Only Diagnoses Urgency of micturition R39.15 Voiding dysfunction N39.8 Sacral neurostimulator in situ Z96.82 CPT Codes Cystoscopy - CPT: 11944-[id number] ([id number])
--- OUTSIDE RECORDS SUMMARY | 2024-10-28 09:44 | XMS_ITS | Encounter Summary ---
Author Organization [employer] Address [address] [facility] [address] [place] [address] Care Team Providers Care Advertising Layout Worker Name Role Phone Mery Torre MD Primary Care Provider [phone] Encounter Details Date Type Department Care Team ([facility] Contact Info) Description 07/16/2022 Orders Only [facility] MED [facility] PEDS [address] [place] [address] Mery Torre MD [address] [place] [address] Social History Tobacco Use Types Packs/Day Years [...] as of this encounter Plan of Treatment Upcoming Encounters Date Type Department Care Team ([facility] Contact Info) Description 12/21/2024 8:30 AM EDT Office Visit [facility] [address] [place], [place] [phone] Mery Torre MD [address] [place] [address] documented as of this encounter Visit Diagnoses Not on filedocumented in this encounter Care Teams Advertising Layout Worker Relationship Specialty Start Date End Date Mery Torre MD [address] [place] [id number] PCP - General Family Medicine 01/10/22 documented as of this encounter
--- OUTSIDE RECORDS SUMMARY | 2024-10-28 09:44 | XMS_ITS | Clinical Summary ---
Author Organization [facility] Address [address] [place] [address] Care Team Providers Care Bead Forming Machine Operator Name Role Phone Mery Torre MD Primary Care Provider [phone] Medications docusate sodium (Colace) 100 mg capsule [...] Last Done Comments Breast Cancer Screening 1977 Cervical Cancer Screening: P ap Smear 1998 [...] on patient's age to complete this topic Hepatitis A Vaccines Aged Out No long er eligible based on patient's age to complete [...] 64 Years) Aged Out No longer eligible b ased on patient's age to complete this topic RSV Immunization Patients Under 20 months Aged Out No longer eligible b ased on patient's age to complete this topic Varicella Vaccines Aged Out No longer eligible based on patient's age to complete this topic Care Teams Bead Forming Machine Operator Relationship Specialty Start Date End Date Mery Torre MD [address] [place] [id number] PCP - General 05/30/22
== END 2024-10-28 10:17 | disposition home or self-care (01) ==
LOC: HO.HUSH 09:26
PROVIDERS: PCP Student in an Organized Health Care Education/Training Program; Visit Provider Urology
DX: N39.41 Urge incontinence (principal); R39.15 Urgency of urination; N32.81 Overactive bladder; N39.8 Other specified disorders of urinary system; R32 Unspecified urinary incontinence; N31.8 Other neuromuscular dysfunction of bladder; Z13.9 Encounter for screening, unspecified
CPT/HCPCS: 52000

== ENCOUNTER → 2024-10-28 09:25 | Outpatient (BNVA) | payer OTHER, SELFPAY | PROVIDERS: PCP Student in an Organized Health Care Education/Training Program; Visit Provider Urology | DX: R39.15 Urgency of urination (principal); N39.8 Other specified disorders of urinary system; Z96.82 Presence of neurostimulator | CPT/HCPCS: 52000; 81003 ==

== ENCOUNTER 2024-11-30 11:28 | Outpatient (AMB) | payer OTHER, SELFPAY ==
--- OUTSIDE RECORDS SUMMARY | 2024-11-30 12:16 | XMS_ITS | Encounter Summary ---
Author Organization [employer] [facility] [employer] Address [address] [facility] 7[address] [place] [address] Care Team Providers Care Manager Universal Name Role Phone Mery Torre MD Primary Care Provider [phone] Reason for Visit * Reason Comments Med Refill Encounter Details Date Type Department [facility] Team ([facility] Contact Info) Description 11/14/2024 Refill [facility] MED & PEDS [address] [place] [address] Mery Torre MD [address] [place] [address] Social History Tobacco Use Types Packs/Day Years [...] Upcoming Encounters Date Type Department Care Team (Late st Contact Info) Description 12/21/2024 8:30 AM EDT Office Visit [facility] MED & PEDS [address] [place] [address] Mery Torre MD [address] [place] [address] documented as of this encounter Visit Diagnoses Not on filedocumented in this encounter Additional Health Concerns Assessment Noted Time PHQ-9 Depression Total Score: 7 03/05/20 23 11:02 AM EST documented as of this encounter Care Teams Manager Universal Relationship Specialty Start Date End Date Mery Torre MD [address] [place] [id number] PCP - General Family Medicine 01/10/22 documented as of this encounter
--- OUTSIDE RECORDS SUMMARY | 2024-11-30 12:16 | XMS_ITS | Encounter Summary ---
Author Organization [facility] Address [address] [place] [address] Care Team Providers Care Labeler Name Role Phone Mery Torre MD Primary Care Provider [phone] Reason for Visit * Reason Onset Date Comments Med Refill 11/08/2024 Encounter Details Date Type Department Care Team (Late Contact Info) Description 11/08/2024 Telephone [facility] [address] [phone] Aria Fernandez PA [address] [address] Med Refill Social History Tobacco Use Types [...] on file documented as of this encounter Progress Notes * Susan Oreilly - 11/08/2024 8:22 AM EDT Received refill request from patient's pharmacy for Pantoprazole 40mg tablets (not on active med list) CARI: 10/08/23 - Aria NOV: 01/26/25 - Aria documented in this encounter Plan of Treatment Upcoming Encounters Date Type Department Care Team (Late Contact Info) Description 01/26/2025 8:30 AM EDT Office Visit [facility] [address] [place] [phone] Aria Fernandez PA [address] [place] [address] documented as of this encounter Visit Diagnoses Not on filedocumented in this encounter Care Teams Labeler Relationship Specialty Start Date End Date Mery Torre MD [address] [place] [address] PCP - General 05/30/22 documented as of this encounter
== END 2024-11-30 12:51 | disposition home or self-care (01) ==
LOC: HO.HUSH 11:29
PROVIDERS: PCP Student in an Organized Health Care Education/Training Program; Visit Provider Urology
DX: R39.15 Urgency of urination (principal); N39.41 Urge incontinence; N39.3 Stress incontinence (female) (male); N32.81 Overactive bladder; N39.8 Other specified disorders of urinary system; R32 Unspecified urinary incontinence

== ENCOUNTER → 2024-11-30 11:28 | Outpatient (BNVA) | payer OTHER, SELFPAY | PROVIDERS: PCP Student in an Organized Health Care Education/Training Program; Visit Provider Urology | DX: Z13.9 Encounter for screening, unspecified (principal) | CPT/HCPCS: 81003 ==

== ENCOUNTER 2024-12-01 09:22 | Outpatient (AMB) | payer OTHER, SELFPAY ==
--- NOTE | 2024-12-01 09:28 | A.OFFVIS_ITS ---
Vital Signs 12/01/24 09:29 Height 5 ft 3 in Weight 201 lb BMI 35.6 BP 98/68 Blood Pressure Location Lt brachial Position Sitting Pulse 88 Pulse Source Pulse Oximeter Pulse Oximetry (%) 97 Oxygen Delivery Method Room Air Intake Visit Reasons: Sleep apnea/Dyspnea Intake Note: pt is here for follow up and states she is here for follow up of DULCE, has a replacement cpap due to issue with it malfucntioning., She is doing well with usage, and she did not use it and noticed symptoms without it. Allergies Penicillins Allergy (Severe, Verified 12/01/24 09:47) ITCHING/SWELLING doxycycline (DOXYCYCLINE) Allergy (Intermediate, Verified 12/01/24 09:47) SEVERE ITCHING, pruritis penicillin G Allergy (Unknown, Verified 12/01/24 09:47) Unknown rosuvastatin (From Crestor) Allergy (Unknown, Verified 12/01/24 09:47) Unknown tetracycline Allergy (Unknown, Verified 12/01/24 09:47) Unknown clindamycin Allergy (Verified 12/01/24 09:47) Gastrointestinal Upset famotidine Allergy (Verified 12/01/24 09:47) Anaphylaxis Sulfa (Sulfonamide Antibiotics) Allergy (Verified 12/01/24 09:47) Chest Pain mirabegron (From Myrbetriq) Adverse Reaction (Severe, Verified 12/01/24 09:47) tachycardia escitalopram (From Lexapro) Adverse Reaction (Unknown, Verified 12/01/24 09:47) Palpitations oseltamivir (From Tamiflu) Adverse Reaction (Unknown, Verified 12/01/24 09:47) Palpitations rabeprazole Adverse Reaction (Unknown, Verified 12/01/24 09:47) Chest Pain nirmatrelvir (From Paxlovid) Adverse Reaction (Verified 12/01/24 09:47) Headache ritonavir (From Paxlovid) Adverse Reaction (Verified 12/01/24 09:47) Headache Medication List - Last Reconciled 12/01/24 by Norma Phillips MD aripiprazole 7.5 mg PO DAILY aspirin 81 mg PO DAILY atorvastatin 10 mg PO DAILY betamethasone dipropionate 0.05% topical betamethasone dipropionate 0.05% 1 appl topical DAILY cetirizine (Zyrtec) 10 mg PO DAILY cholecalciferol (vitamin D3) 2,000 units PO DAILY clobetasol 0.05% 1 appl topical BID clonazepam 1 mg PO TID cyanocobalamin (vitamin B-12) 500 mcg PO DAILY docusate sodium 100 mg PO BID fluoxetine 40 mg PO DAILY folic acid 0.4 mg PO DAILY hydrocortisone 2.5% topical ketoconazole 2% topical losartan 25 mg PO DAILY oxybutynin chloride ER 15 mg PO DAILY 90 days pantoprazole 40 mg PO BID thiamine HCl (vitamin B1) 100 mg PO QAM tretinoin 0.05% appl topical BEDTIME Do you need a note to return to daycare/school/sports/work: No HPI HPI Sleep apnea/Dyspnea: Details: 49 YEARS OLD FEMALE MODERATELY OBESE HAS OBSTRUCTIVE SLEEP APNEA WHICH IS MILD BUT REMAINED SYMPTOMATIC WITHOUT THE USE OF CPAP. NOW SHE USES CPAP REGULARLY AND SLEEPS BETTER. SHE HAS HAD THE CPAP DEVICE REPLACED WITH A NEW MODEL, AND IT IS WORKING OKAY. 2 DAYS THAT SHE DID NOT USE THE CPAP SHE COULD FEEL THE DIFFERENCE. SHE DOES HAVE CHRONIC ANXIETY, SYNDROME, WHICH IS CONTROLLED WITH MEDS. SHE COMES ONCE A YEAR FOR HER FOLLOW-UP. [facility] Medical History Anxiety Sleep apnea IBS (irritable bowel syndrome) Insomnia GERD (gastroesophageal reflux disease) Hyperlipidemia TIA (transient ischemic attack) Coronary artery disease Morbid obesity Overactive bladder Partial bowel obstruction Hospital discharge follow-up Abnormal CT of the abdomen Hyperkalemia Small bowel obstruction Lab test negative for COVID-19 virus History of urinary incontinence History of AR (myocardial infarction) Rectal prolapse Arthritis Bipolar II disorder Back pain Optic neuritis Fibromyalgia Dyspnea Obesity Surgical History History of surgery History of carpal tunnel release of both wrists Hx of thumb surgery History of pubovaginal sling (10/19/19) H/O cystoscopy (06/08/19) History of total right knee replacement (06/2016) History of total left knee replacement (TKR) (11/2016) Family History Mother Afib Heart disease Father Cardiac failure Respiratory failure Brother Afib Brother Hypertension Brother Hypertension Son No problems noted. Social History Household Members: Family Housing: House Alcohol intake: current Alcohol intake frequency: holidays/special occasions only Comment: sleeping Patient Tobacco Use Status: Former Tobacco user Tobacco use type: Cigarette Cigarette Packs Per Day: 1 Cigarettes Per Day: 20 Years Smoked: 20 Second Hand Smoke Exposure: No Substance Use Type: Marijuana service: No Current occupational status: unemployed Review of Systems Const All systems reviewed & are unremarkable except as noted in HPI and below Reports body aches, Reports chills, Reports fatigue, Reports fever(s) and Denies headache(s) Eyes Reports no additional complaints, Denies itchy eyes and Denies loss of vision ENT Reports no additional complaints, Denies dysphagia, Denies vertigo and Denies headache(s) Card Denies chest pain, Denies rapid heart rate, Denies irregular heart rhythm, Reports dyspnea on exertion (mild , non specific ) and Denies slow heart rate Resp Reports as per HPI and Reports dyspnea on exertion (mild , non specific ) GI Denies bloating, Denies change in bowel habits, Denies change in stool character, Denies dysphagia, Denies heartburn, Denies nausea and Denies vomiting Denies difficulty voiding and Reports urinary incontinence (has had surgery for this ) Musc Reports abnormal gait (use cane ), Denies back pain, Denies myalgias, Reports arthralgias (mild pain in knees), Denies muscle weakness, Denies radiating pain into limb and Denies stiffness Skin/Breast Reports system reviewed and no additional complaints, except as documented Neuro Denies Abnormal speech present, Reports abnormal gait (use cane ), Denies vertigo, Denies headache(s), Denies focal weakness, Denies loss of vision, Denies memory loss, Denies restless legs and Denies tremor(s) Psych Denies anxiety, Denies depression, Denies difficulty concentrating, Denies irritability, Denies memory loss, Denies mood swings and Reports other (being treated for pshylogical issues) Endo Reports no additional complaints and Reports fatigue Omar/Lymph Reports no additional complaints Aller/Immun Reports no additional complaints and Denies itchy eyes Physical Exam Const General: healthy appearing ( EXCEPT FOR BEING OVERWEIGHT.), comfortable, no acute distress, alert and awake Orientation/consciousness: patient oriented x3 HEENT Head: Yes normal to inspection General nose exam: No nasal polyps present and No nasal discharge present Face and sinus: Yes sinuses nontender Mouth: oropharynx normal Throat: Yes posterior oropharynx normal Eyes General: appearance normal, both eyes and all related structures Neck Neck: Yes normal visual inspection, Yes no lymphadenopathy, Yes trachea midline and Yes no JVD Thyroid: Thyroid normal Chest Chest palpation & inspection: normal inspection of the chest, normal palpation of entire chest wall and no tenderness Resp Effort & Inspection: normal respiratory effort Auscultation: clear to auscultation bilaterally, no crackles, no rhonchi and no wheezes Cardio Palpation: normal PMI Rate: regular rate Rhythm: regular rhythm Heart sounds: no gallops and no murmurs Peripheral pulses: Peripheral pulses 2+ throughout GI Palpation (GI): Soft to palpation, nontender, No hepatosplenomegaly present and no masses Auscultation: normal bowel sounds Back/Spine/Pelvis Thoracic/Lumbar Spine: thoracic and lumbar spine normal to inspection Skin General skin exam: no rashes or lesions noted Neuro General: patient oriented x3 and no focal motor deficits Cranial nerves: Yes CN's II-XII intact bilaterally Speech: No Abnormal speech present Extrem General: Yes normal to inspection, Yes no clubbing, cyanosis or edema and Yes no calf tenderness Psych Speech and movement: Normal speech and movement present Affect: Anxious affect present Results Reviewed Results Reviewed: COMPLIANCE REPORT NOT AVAILABLE BUT SHE USES EVERY NIGHT. Assessment & Plan Assessment & Plan (1) Sleep apnea: Comment: PATIENT HAS BEEN OBESE . POLYSOMNOGRAM STUDY IN 2021 CONSISTENT WITH MILD OBSTRUCTIVE SLEEP APNEA. PATIENT HAS BEEN ON CPAP AT NIGHTTIME, ORDERED BY HER NEUROLOGIST, DR. MONTERROSO. CLAIMS THAT SHE HAS BEEN SLEEPING OKAY. SHE COMES TO SEE ME ONCE A YEAR FOR FOLLOW-UP OF HER SLEEP APNEA AND USE OF CPAP. WE WERE NOT ABLE TO DOWNLOAD THE COMPLIANCE BUT PER HER STATEMENT AND CONFIRMED BY THE DME REPORT HE IS VERY COMPLIANT. Code(s): G47.30 - Sleep apnea, unspecified Category: Medical Plan: ADVISED TO CONTINUE USING THE CPAP REGULARLY . (2) Dyspnea: Comment: VERY NON SPECIFIC , I THINK MAY BE RELATED TO ANXIETY / PANIC DISORDER . SPIROMETRY IS ESSENTAILLY NORMAL NO RESTRICTIVE OR OBSTRUCTIVE PULM DISORDER . IT IS DEFINITELY BETTER THAN BEFORE AND MUCH LESS, SHE HAS BEEN REASSURED THAT SHE HAS NO CHRONIC PROBLEM WITH THE LUNGS. Code(s): R06.00 - Dyspnea, unspecified Category: Medical Plan: STILL GOOD IDEA TO DO DEEP BREATHING EXERCISES 2 TO 3 TIMES A DAY (3) Obesity: Comment: CLINICALLY SHE IS MODERATELY OBESE , BUT SHE WOULD NOT ALLOPW US TO RECORD HER WEIGHT. SHE DID GAIN SOME WEIGHT DURING THE YEAR AND NOW SHE IS TRYING TO LOSE IT AGAIN. Code(s): E66.9 - Obesity, unspecified Category: Medical Plan: ENCOURAGED TO WATCH HER DIET, WALK DAILY, AND KEEP THE WEIGHT UNDER CONTROL . Coding Level of Care Code Est Pt Level 3 (46668) Diagnoses Sleep apnea G47.30 Dyspnea R06.00 Obesity E66.9
[2024-12-01 09:29] VITALS: BP 98/68; PULSE 88; O2SAT 97; BMI 35.6
--- OUTSIDE RECORDS SUMMARY | 2024-12-01 09:42 | XMS_ITS | Encounter Summary ---
Author Organization [employer] Address [address] [facility] 7t [place] [address] Care Team Providers Care Camera Maker Name Role Phone Mery Torre MD Primary Care Provider [phone] Reason for Visit * Reason Comments Med Refill Encounter Details Date Type Department Care Team ([facility] Contact Info) Description 11/14/2024 Refill [facility] MED & PEDS [address] [place] [address] Mery Torre MD [address] [place] [address] Social History Tobacco Use Types Packs/Day Years [...] 12/21/2024 8:30 AM EDT Office Visit [facility] PEDS [address] [place] [address] Mery Torre MD [address] [place] [address] documented as of this encounter Visit Diagnoses Not on filedocumented in this encounter Additional Health Concerns Assessment Noted Time PHQ-9 Depression Total Score: 7 03/05/20 23 11:02 AM EST documented as of this encounter Care Teams Camera Maker Relationship Specialty Start Date End Date Mery Torre MD [address] [place] [id number] PCP - General Family Medicine 01/10/22 documented as of this encounter
--- OUTSIDE RECORDS SUMMARY | 2024-12-01 09:42 | XMS_ITS | Encounter Summary ---
Author Organization [facility] Address [address] [place] [address] Care Team Providers Care Meter/Relay Craftsman Name Role Phone Mery Torre MD Primary Care Provider [phone] Reason for Visit * Reason Onset Date Comments Med Refill 11/08/2024 Encounter Details Date Type Department Care Team (Late Contact Info) Description 11/08/2024 Telephone [facility]ology [facility] [address] [facility] [address] [phone] Aria Fernandez PA [address] [facility] [address] [address] Med Refill Social History Tobacco Use Types [...] [address] [place] [phone] Aria Fernandez PA [address] [place] [address] documented as of this encounter Visit Diagnoses Not on filedocumented in this encounter Care Teams Meter/Relay Craftsman Relationship Specialty Start Date End Date Mery Torre MD [address] [place] [address] PCP - General 05/30/22 documented as of this encounter
== END 2024-12-01 09:47 | disposition home or self-care (01) ==
LOC: HO.HPS 09:22
PROVIDERS: PCP Student in an Organized Health Care Education/Training Program; Visit Provider Internal Medicine
DX: G47.30 Sleep apnea, unspecified (principal); R06.00 Dyspnea, unspecified; E66.9 Obesity, unspecified
CPT/HCPCS: 99213

== ENCOUNTER → 2024-12-01 09:22 | Outpatient (BNVA) | payer OTHER, SELFPAY | PROVIDERS: PCP Student in an Organized Health Care Education/Training Program; Visit Provider Internal Medicine | DX: G47.30 Sleep apnea, unspecified (principal); R06.00 Dyspnea, unspecified; E66.9 Obesity, unspecified; Z68.35 Body mass index [BMI] 35.0-35.9, adult; Z99.89 Dependence on other enabling machines and devices | CPT/HCPCS: 99212 ==

== ENCOUNTER 2024-12-17 16:21 | Outpatient (AMB) | payer OTHER, SELFPAY ==
--- NOTE | 2024-12-17 14:30 | A.OFFVIS_ITS ---
Intake Visit Reasons: 6w follow up Intake Note: Patient is present via telehealth for 6w follow up Urology Med: Oxybutynin Antibiotic Allergy: Doxycycline, Penicillin, Tetracycline,Clindamycin, Sulfa Blood Thinner: Aspirin Personal Secretary Required: No Accompanied by: Self / Same As Patient Allergies Penicillins Allergy (Severe, Verified 12/17/24 16:23) ITCHING/SWELLING doxycycline (DOXYCYCLINE) Allergy (Intermediate, Verified 12/17/24 16:23) SEVERE ITCHING, pruritis penicillin G Allergy (Unknown, Verified 12/17/24 16:23) Unknown rosuvastatin (From Crestor) Allergy (Unknown, Verified 12/17/24 16:23) Unknown tetracycline Allergy (Unknown, Verified 12/17/24 16:23) Unknown clindamycin Allergy (Verified 12/17/24 16:23) Gastrointestinal Upset famotidine Allergy (Verified 12/17/24 16:23) Anaphylaxis Sulfa (Sulfonamide Antibiotics) Allergy (Verified 12/17/24 16:23) Chest Pain mirabegron (From Myrbetriq) Adverse Reaction (Severe, Verified 12/17/24 16:23) tachycardia escitalopram (From Lexapro) Adverse Reaction (Unknown, Verified 12/17/24 16:23) Palpitations oseltamivir (From Tamiflu) Adverse Reaction (Unknown, Verified 12/17/24 16:23) Palpitations rabeprazole Adverse Reaction (Unknown, Verified 12/17/24 16:23) Chest Pain nirmatrelvir (From Paxlovid) Adverse Reaction (Verified 12/17/24 16:23) Headache ritonavir (From Paxlovid) Adverse Reaction (Verified 12/17/24 16:23) Headache HPI Comments Details: 12/17/24-status post evaluation with the [employer] rep. based on placement of lead program for in 7 are not ideal. Currently she is on program 1 she has decreased the amplitude from 0.9-0.8 she still feels a mild flutter vaginally I have discussed going down to 0.7 on the amplitude. She has been off of the oxybutynin she has noticed a 50% improvement instead of going 4 times an hour she is going about every hour, she still gets breakthrough urinary leakage. She has up 2 times at night instead of 4 times at night. I will place her on trospium 60 mg daily. We will re-evaluate her symptoms in 2 months and we will repeat imaging of the lead in 6-9 months to confirm that there is no migration or change in lead positioning. 10/28/24--Here for Cystoscopy. Intractable urinary incontinence. The patient states that the sacral nerve pacemaker worked initially but does not control her urinary symptoms anymore. Results [id number]--09/13/24--sacral lead appears to be in the correct position Cystoscopy Findings - no suspicious lesions. Schedule reprogramming with the [employer] sales support representative 09/13/24--Niya is here for urodynamics. The patient has complaints of urinary urgency. Interpretation: During the filling phase there was normal sensation, sensory urgency was noted, strong desire was noted at 197 mL. Findings were consistent with outflow obstruction likely from prior pelvic floor surgeries. Leakage was not observed during cough or Valsalva. EMG- Appropriate changes in the waveforms were noted through out the study. I have discussed treatment to be focused on sensory urgency. She had benefits from initial replaced 4 sacral neuromodulation. We will check a sacral x-ray to identify the current lead placement as well as arrange for [employer] rep evaluation for reprogramming. Also discussed tibial nerve stimulation has a consideration. Follow-up for office cystoscopy. 05/24/24--Niya is a 49-year-old female who has been seen by Dr. Anne and presents to me for evaluation of urinary symptoms of urgency and urinary incontinence. The patient has had multiple pelvic surgeries including a mesh sling with revision and autologous rectus fascia sling. She states that after the revision she had problems with emptying and had to push to empty and recalls developing prolapse. She was seen by Uro ob/gyn physician for prolapse repair. She states that she initially had Botox for urinary urgency and then had InterStim neuromodulation which worked well. Due to lead malfunction the lead needed to be changed which was done by Dr. Anne 07/15/2022. She states with a 2nd lead placement she did not tolerate programming due to rectal fluttering which was very uncomfortable. She states that on ' Ester 04/27/2024 she was seen in the emergency room due to UTI and abdominal pain. She was given antibiotics, an abdominal ultrasound was done which was within normal limits. She is currently on oxybutynin 15 mg daily, she has some dry mouth which is not bothersome, she stopped the Myrbetriq due to heart racing. I have discussed re- evaluate with urodynamics she is instructed to stopped the oxybutynin 5 days prior. The InterStim is currently turned off. 45 minutes spent in review of records pertaining to this visit and including [id number] discussion with the patient and documentation of this visit. Review of chart Failed conservative therapy medications - Myrbetriq, VESIcare, tolterodine, and Gemtesa InterStim previously 07/15/22 InterStim revision - primary effect is rectal flutter when turned on Previous evaluation with Dr. Hendricks Urethral mesh had been placed by an outside urologist Dr. Hendricks had removed this mesh uses become infected and replace this with abdominal fascia Prior prolapse repair with Dr Hannah Eck[facility] Medical History Anxiety Sleep apnea IBS (irritable bowel syndrome) Insomnia GERD (gastroesophageal reflux disease) Hyperlipidemia TIA (transient ischemic attack) Coronary artery disease Morbid obesity Overactive bladder Partial bowel obstruction Hospital discharge follow-up Abnormal CT of the abdomen Hyperkalemia Small bowel obstruction Lab test negative for COVID-19 virus History of urinary incontinence History of IL (myocardial infarction) Rectal prolapse Arthritis Bipolar II disorder Back pain Optic neuritis Fibromyalgia Dyspnea Obesity Surgical History History of surgery History of carpal tunnel release of both wrists Hx of thumb surgery History of pubovaginal sling (10/19/19) H/O cystoscopy (06/08/19) History of total right knee replacement (06/2016) History of total left knee replacement (TKR) (11/2016) Family History Mother Afib Heart disease Father Cardiac failure Respiratory failure Brother Afib Brother Hypertension Brother Hypertension Son No problems noted. Social History Household Members: Family Housing: House Alcohol intake: current Alcohol intake frequency: holidays/special occasions only Comment: sleeping Patient Tobacco Use Status: Former Tobacco user Tobacco use type: Cigarette Cigarette Packs Per Day: 1 Cigarettes Per Day: 20 Years Smoked: 20 Second Hand Smoke Exposure: No Substance Use Type: Marijuana service: No Current occupational status: unemployed Review of Systems Const All systems reviewed & are unremarkable except as noted in HPI and below Reports no additional complaints Eyes Reports no additional complaints ENT Reports no additional complaints Card Reports no additional complaints Resp Reports no additional complaints GI Reports no additional complaints Reports as per HPI Musc Reports no additional complaints Skin/Breast Reports system reviewed and no additional complaints, except as documented Neuro Reports no additional complaints Psych Reports no additional complaints Endo Reports no additional complaints Omar/Lymph Reports no additional complaints Aller/Immun Reports no additional complaints Telehealth Telehealth Telehealth Platform: [employer] Location of provider rendering services: practice address Location of patient: address on file Patient Identification confirmed using: Name, : Yes Telehealth method: voice only Patient verbally consented to treatment: Yes Patient verbally consented to billing insurance company: Yes Patient informed of any privacy concerns related to visit: Yes Minutes spent on Phone/Video with Pt.: 14 Results Reviewed Results Reviewed: Date of Service: 09/13/24 EXAMINATION: XR SACRUM COCCYX 2 OR MORE VIEWS HISTORY: Z96.82 - Presence of neurostimulator COMPARISON: There are no prior studies for comparison. FINDINGS: Three views of the sacrum and coccyx are submitted. Osseous mineralization is normal. No fracture is seen. The sacroiliac joints are maintained. A sacral stimulator is seen on the right. Date of Service: 04/27/24 US abdomen limited. COMPARISON: US abdomen dated 06/26/22 at 08:[address] abdomen and pelvis dated 06/17/20 at 18:49 EST Technique: Real time sonographic imaging with Doppler imaging was performed by the staff respiratory therapist. Multiple sales support representative static images were saved for review. FINDINGS: The visualized portions of the pancreas appear normal. The liver has normal echotexture. The main portal vein is antegrade. Liver, right lobe size: 9.6 cm, diminutive The gallbladder is normal in size. No cholelithiasis or sludge identified. There is a negative sonographic Jang's sign. Gallbladder wall: 2 mm, normal. Common bile duct: 2 mm, normal. Right kidney: Cortical medullary differentiation is maintained. No calculus or focal parenchymal abnormality identified. No hydronephrosis. Right kidney length: 12.4 cm No free intraperitoneal fluid identified. IMPRESSION: 1. No cause for patient's symptoms identified. No evidence of cholecystitis. No evidence of right renal obstruction. Assessment & Plan Assessment & Plan (1) Urgency of micturition: Code(s): R39.15 - Urgency of urination Category: Medical (2) Voiding dysfunction: Code(s): N39.8 - Other specified disorders of urinary system Category: Medical (3) Sacral neurostimulator in situ: Code(s): Z96.82 - Presence of neurostimulator Category: Medical Plan I will place her on trospium 60 mg daily. We will re-evaluate her symptoms in 2 months and we will repeat imaging of the lead in 6-9 months to confirm that there is no migration or change in lead positioning. Medications: New trospium ER must be taken on empty stomach at least 1 hour before a meal/food with water only 60 mg PO DAILY 30 caps 4RF Discontinued oxybutynin chloride ER okay to refill in advance once before patient visit in April Discontinued Reason: Doctor's Order 15 mg PO DAILY 90 days 90 tabs 1RF N32.81 - Overactive bladder, R39.15 - Urgency of urination Patient Instructions: The patient had an opportunity to ask questions regarding treatment plan. The patient expressed understanding and agreement with the above treatment plan. The patient is aware they should contact our office by phone for worsening of their current condition or the appearance of new symptoms. Compliance is encouraged with any medications and followup testing that is ordered. It is a privilege to be allowed the opportunity to participate in the urologic care of your patient. If you have any questions or concerns regarding treatment for the above conditions please do not hesitate to contact me. The office telephone contact is [phone]. This note is constructed in part using voice recognition software. While every effort has been made to ensure accuracy quarantine inspector errors may have been included. Yours sincerely, Daniel Haskins MD Coding Level of Care Code Tele Est Pt Level 4 (27991) Complex EM visit Add On G2211 Diagnoses Urgency of micturition R39.15 Voiding dysfunction N39.8 Sacral neurostimulator in situ Z96.82
--- OUTSIDE RECORDS SUMMARY | 2024-12-17 16:22 | XMS_ITS | Clinical Summary ---
Author Organization [address] [place] [address] Address [address] [place] [address] Phone Care Team Providers Care Long Wall Mining Machine Tender Name Role Phone Mery Torre MD Primary Care Provider [phone] Medications docusate sodium (Colace) 100 mg capsule Take 1 capsule (100 mg total) by mouth 2 (two) times a day. 180 each 2 05/13/2024 Active Encounters Date Type Department Care Team Description 11/08/2024 Telephone Gastroenterology - [place] [address] [place] [phone] Aria Fernandez PA Med Refill from [...] 10/08/2023 9:27 AM EDT Plan of Treatment Upcoming Encounters Date Type Department Care Team (Late st Contact Info) Description 01/26/2025 8:30 AM EDT Office Visit Gastroenterology - [place] [address] [place] [phone] Aria Fernandez PA [address] [place] [address] Health Maintenance Due Date Last Done Comments Breast Cancer Screening 1977 Cervical Cancer Screening: P ap Smear 1998 DTaP,Tdap,and Td Vaccines (2 - Td or Tdap) 07/22/2016 07/22/2006 Colorectal Cancer Screening: Colonoscopy 04/06/2022 HIV Screening 04/06/2022 Hepatitis C Screening 04/06/2022 Medicare Annual Wellness Visit 04/06/2022 Social Influencers of Health Screening 04/06/2022 COVID-19 Vaccine ( - 2023-2 5 season) 2023 Depression Screening 04/28/2024 Influenza Vaccine (#1) 2024 8, 02/02/2007 Hepatitis B Vaccines Completed 02/04/2007, [...] 5 Years) and At-Risk Patients (6 to 49 Years) Aged Out No longer eligible b ased on patient's age to complete this topic RSV Immunization Patients Under 20 months Aged Out No longer eligible b ased on patient's age to complete this topic Varicella Vaccines Aged Out No longer eligible based on patient's age to complete this topic Insurance [employer] MEDICARE Member Subscriber Plan / Payer (Ef fective 2019-Present) Name:JOSEPH HAJI Relation to Subscriber:Self Name:Joseph Haji Payer ID:[id number] Group ID:[id number] Type:Not on file Address: [place] [address] [address] [address] Care Teams Long Wall Mining Machine Tender Relationship Specialty Start Date End Date Mery Torre MD [address] [place] [address] PCP - General 05/30/22
== END 2024-12-17 16:57 | disposition home or self-care (01) ==
LOC: HO.HUSH 16:21
PROVIDERS: PCP Student in an Organized Health Care Education/Training Program; Visit Provider Urology
DX: R39.15 Urgency of urination (principal); N39.8 Other specified disorders of urinary system; Z96.82 Presence of neurostimulator
CPT/HCPCS: 99214; G2211

== ENCOUNTER 2024-12-21 09:26 | Outpatient (REF) | payer OTHER, SELFPAY ==
--- OUTSIDE RECORDS SUMMARY | 2024-12-21 08:30 | XMS_ITS | Encounter Summary ---
Author Organization [employer] Address [address] [facility] 7t [place] [address] Care Team Providers Care Apartment House Manager Name Role Phone Rossy Torre MD Primary Care Provider [phone] Encounter Details Date Type Department Care Team (Late st Contact Info) Description 12/21/2024 8:30 AM EDT Office Visit [facility] MED & PEDS [address] [place], [place] [phone] Rossy Torre MD [address] [place] [address] Primary hypertension (Primary Dx); Neurogenic bladder; Anxiety; Sleep apnea, unspecified type Social History Tobacco Use Types Packs/Day Years Used Date Smoking Tobacco: Former Cigarettes Smokeless Tobacco: Never Alcohol Use Standard Drinks/Week Comments Never 0 (1 standard drink = 0.6 oz pur e alcohol) Depression Answer Date Recorded Patient Health Questionnaire-9 [...] 10:32 AM EDT Sexual Orientation Straight 08/14/2022 6 :50 AM EDT documented as of this encounter Last Filed Vital Signs Vital Sign Reading Time Taken Comments Blood Pressure 124/82 12/21/2024 8:56 AM EDT Pulse 96 12/21/2024 8:56 AM EDT Temperature 37.1 C (98.7 F) 12/21/2024 8:56 AM EDT Respiratory Rate 20 12/21/2024 8:56 AM EDT Oxygen Saturation - - Inhaled Oxygen Concentration - - Weight 85.7 kg (189 lb) 12/21/2024 8:56 AM EDT Height 157.5 cm (5' 2 ) 12/21/2024 8:56 AM EDT Body Mass Index 34.57 12/21/2024 8:56 AM EDT documented in this encounter Progress Notes * Rossy Torre MD - 12/21/2024 8:30 AM EDT Subjective Patient ID: Niya Haji is a 49 y.o. female who presents for No chief complaint on file.. Hypertension This is a chronic problem. The current episode started more than 1 year ago. The problem has been gradually improving since onset. The problem is controlled. Pertinent negatives include no chest pain, headaches, neck pain, palpitations or shortness of breath. Risk factors for coronary artery disease include obesity and sedentary lifestyle. Past treatments include angiotensin blockers and lifestyle changes. The current treatment provides significant improvement. There are no compliance problems. Review of Systems Constitutional: Negative. Respiratory: Negative. Negative for shortness of breath. Cardiovascular: Negative for chest pain and palpitations. Gastrointestinal: Negative. Genitourinary: Negative. Musculoskeletal: Negative for neck pain. Neurological: Negative for headaches. Objective Physical Exam Constitutional: Appearance: Normal appearance. HENT: Head: Normocephalic and atraumatic. Right Ear: Tympanic membrane normal. Left Ear: Tympanic membrane normal. Mouth/Throat: Mouth: Mucous membranes are moist. Eyes: Pupils: Pupils are equal, round, and reactive to light. Cardiovascular: Rate and Rhythm: Normal rate and regular rhythm. Pulmonary: Effort: Pulmonary effort is normal. Breath sounds: Normal breath sounds. Abdominal: General: Abdomen is flat. Palpations: Abdomen is soft. Musculoskeletal: General: Normal range of motion. Skin: General: Skin is warm. Neurological: General: No focal deficit present. Mental Status: She is alert. Psychiatric: Mood and Affect: Mood normal. Behavior: Behavior normal. Assessment/Plan Diagnoses and all orders for this visit: Primary hypertension Comments: Stable on losartan 12.5mg daily Maintain a low-sodium diet (less than 2 grams per day). Maintain a regular cardiovascular exercise program. Advised to maintain a low-fat, low-cholesterol diet. Counseled regarding importance of weight loss. Counseled re: potential co-morbidities including cardiovascular disease. Orders: - Basic Metabolic Panel; Future - Lipid Panel, Standard; Future - Hepatic Function Panel; Future Neurogenic bladder Comments: Follows with urology Anxiety Comments: Stable Follows with Therapist Sleep apnea, unspecified type Comments: Well controlled with CPAP machine Pt will benefit from Pulse oximeter to keep track of oxygen levels Other orders - losartan (Cozaar) 25 MG tablet; Take 0.5 tablets (12.5 mg) by mouth Once per day. documented in this encounter Miscellaneous Notes * Addendum Note - Rossy Torre MD - 12/21/2024 8:30 AM EDTAddended by: ROSSY TORRE on: 12/21/2024 09:14 AM Modules accepted: Orders documented in this encounter Plan of Treatment Scheduled Orders Name Type Priority Associated Diagnoses Orde r Schedule Basic Metabolic Panel Lab Routine Primary hypertension Expected: 12/21/2024 (Approximate), Expires: 12/21/2025 Lipid Panel, Standard Lab Routine Primary hypertension Expected: 12/21/2024 (Approximate), Expires: 12/21/2025 Hepatic Function Panel Lab Routine Primary hypertension Expected: 12/21/2024 (Approximate), Expires: 12/21/2025 documented as of this encounter Visit Diagnoses Diagnosis Primary hypertension- Primary Unspecified essential hypertension Neurogenic bladder Neurogenic bladder, NOS Anxiety Anxiety state, unspecified Sleep apnea, unspecified type documented in this encounter Additional Health Concerns Assessment Noted Time PHQ-9 Depression Total Score: 7 03/05/20 23 11:02 AM EST documented as of this encounter Care Teams Apartment House Manager Relationship Specialty Start Date End Date Rossy Torre MD [address] [place] [id number] PCP - General Family Medicine 01/10/22 documented as of this encounter
--- OUTSIDE RECORDS SUMMARY | 2024-12-21 10:04 | XMS_ITS | Encounter Summary ---
Author Organization [employer] Address [address] [facility] 7t [place] [address] Care Team Providers Care Speech Assistant Name Role Phone Mery Torre MD Primary Care Provider [phone] Reason for Visit * Reason Comments Med Refill Encounter Details Date Type Department Care Team ([facility] Contact Info) Description 11/14/2024 Refill [facility] CH[facility] MED & PEDS [address] [place] [address] Mery Torre MD [address] [place] [address] Social History Tobacco Use Types Packs/Day Years [...] documented as of this encounter Care Teams Speech Assistant Relationship Specialty Start Date End Date Mery Torre MD [address] [place] [id number] PCP - General Family Medicine 01/10/22 documented as of this encounter
--- OUTSIDE RECORDS SUMMARY | 2024-12-21 10:04 | XMS_ITS | Clinical Summary ---
Author Organization [address] [place] [address] Address [address] [place] [address] Phone Care Team Providers Care Re Recording Mixer Name Role Phone Mery Torre MD Primary Care Provider [phone] Medications docusate sodium (Colace) 100 mg capsule Take 1 capsule (100 mg total) by mouth 2 (two) times a day. 180 each 2 05/13/2024 Active Encounters Date Type Department Care Team Description 11/08/2024 Telephone Gastroenterology - [place] [address] [place] [phone] Aria Fernandez PA from Last 3 Months Surgical History Surgery [...] 8:30 AM EDT Office Visit [facility] - [place] [address] [place] [address] Aria Fernandez PA [address] [place] [phone] Health Maintenance Due Date Last Done Comments [...] ID:[id number] Group ID:[id number] Type:Not on file Address: [place] [address] [address] [address] Care Teams Re Recording Mixer Relationship Specialty Start Date End Date Mery Torre MD [address] [place] [address] PCP - General 05/30/22
--- OUTSIDE RECORDS SUMMARY | 2024-12-21 10:04 | XMS_ITS | Encounter Summary ---
Author Organization [employer] Address [address] [facility] [address] [place] [address] Care Team Providers Care Pouncing Lathe Operator Name Role Phone Mery Torre MD Primary Care Provider [phone] Encounter Details Date Type Department Care Team ([facility] st Contact Info) Description 07/16/2022 Orders Only [facility] CHC MED & PEDS [address] [place] [address] Mery Torre MD [address] [place] [address] Social History Tobacco Use Types Packs/Day Years [...] on filedocumented in this encounter Care Teams Pouncing Lathe Operator Relationship Specialty Start Date End Date Mery Torre MD [address] [place] [id number] PCP - General Family Medicine 01/10/22 documented as of this encounter
--- OUTSIDE RECORDS SUMMARY | 2024-12-21 10:04 | XMS_ITS | Encounter Summary ---
Author Organization [employer] Address [address] [facility] 7t [place] [address] Care Team Providers Care Oss Architect Name Role Phone Mery Torre MD Primary Care Provider [phone] Reason for Visit * Reason Comments Med Refill Encounter Details Date Type Department Care Team ([facility] Contact Info) Description 03/08/2024 Refill [facility] MEDICINE [address] [place] [address] Mery Torer MD [address] [place] [address] Hypertension, unspecified type Social History Tobacco Use [...] documented as of this encounter Care Teams Oss Architect Relationship Specialty Start Date End Date Mery Torre MD [address] [place] [id number] PCP - General Family Medicine 01/10/22 documented as of this encounter
--- OUTSIDE RECORDS SUMMARY | 2024-12-21 10:04 | XMS_ITS | Encounter Summary ---
Author Organization [employer] Address [address] [facility] [address] [place] [address] Care Team Providers Care Technology Professional Name Role Phone Mery Torre MD Primary Care Provider Encounter Details Date Type Department Care Team (Late st Contact Info) Description 09/10/2022 Orders Only [facility] CHC MED & PEDS [address] [place] [address] Meg Cervantes LPN Social History Tobacco Use [...] on filedocumented in this encounter Care Teams Technology Professional Relationship Specialty Start Date End Date Mery Torre MD [address] [place] [address] PCP - General Family Medicine 01/10/22 documented as of this encounter
--- OUTSIDE RECORDS SUMMARY | 2024-12-21 10:04 | XMS_ITS | Encounter Summary ---
Author Organization [employer] Address 75 [facility] [address] [place] [address] Care Team Providers Care Barge Engineer Name Role Phone Mery Torre MD Primary Care Provider [phone] Reason for Visit * Reason Onset Date Comments Chart Prep 12/16/2024 Encounter Details Date Type Department Care Team ([facility] st Contact Info) Description 12/16/2024 Telephone C [facility] 505 [place] [address] Mery Torre MD 505 [place] [address] Chart Prep Social History Tobacco Use Types Packs/Day Years [...] encounter Miscellaneous Notes * Telephone Encounter - Aline Jean MA - 12/16/2024 3:11 PM EDT Chart Prep Labs: done Images: done Referrals: complete Vaccines due: due Screenings: pap smear and STI screening Overdue care gaps: SDOH, PHQ-9, and Tobacco documented in this encounter Plan of Treatment Not on file documented as of this encounter Visit Diagnoses Not on filedocumented in this encounter Additional Health Concerns Assessment Noted Time PHQ-9 Depression Total Score: 7 03/05/20 23 11:02 AM EST documented as of this encounter Care Teams Barge Engineer Relationship Specialty Start Date End Date Mery Torre MD [address] [place] [phone] PCP - General Family Medicine 01/10/22 documented as of this encounter
--- OUTSIDE RECORDS SUMMARY | 2024-12-21 10:04 | XMS_ITS | Encounter Summary ---
Author Organization [employer] Address 75 [facility] 7t [place] [address] Care Team Providers Care Sheet Metal Supervisor Name Role Phone Mery Torre MD Primary Care Provider [phone] Encounter Details Date Type Department Care Team (Latest Contact Info) Description 12/21/2024 Travel Social History Tobacco Use Types Packs/Day Years [...] documented as of this encounter Care Teams Sheet Metal Supervisor Relationship Specialty Start Date End Date Mery Trore MD [address] [place] [id number] PCP - General Family Medicine 01/10/22 documented as of this encounter
--- OUTSIDE RECORDS SUMMARY | 2024-12-21 10:04 | XMS_ITS | Encounter Summary ---
Author Organization [employer] Address 75 [facility] 7[address] [place] [address] Care Team Providers Care District Manager Name Role Phone Mery Torre MD Primary Care Provider [phone] Reason for Visit * Reason Onset Date Comments Change PCP 12/21/2024 Encounter Details Date Type Department Care Team ([facility] st Contact Info) Description 12/21/2024 Telephone C [facility] 505 [place] [address] Mery Torre MD 505 [place] [address] Change PCP Social History Tobacco Use Types Packs/Day Years [...] encounter Miscellaneous Notes * Telephone Encounter - Elvin Montiel - 12/21/2024 9:24 AM EDT Patient would like to receive care from once leaves practice per pt request. documented in this encounter Plan of Treatment Not on file documented as of this encounter Visit Diagnoses Not on filedocumented in this encounter Additional Health Concerns Assessment Noted Time PHQ-9 Depression Total Score: 7 03/05/20 23 11:02 AM EST documented as of this encounter Care Teams District Manager Relationship Specialty Start Date End Date Mery Torre MD [address] [place] [phone] PCP - General Family Medicine 01/10/22 documented as of this encounter
--- OUTSIDE RECORDS SUMMARY | 2024-12-21 10:04 | XMS_ITS | Encounter Summary ---
Author Organization [employer] Address [address] [place] [address] Care Team Providers Care Senior Clerk Name Role Phone Mery Torre MD Primary Care Provider [phone] Encounter Details Date Type Department Care Team (Late st Contact Info) Description 04/12/2022 [facility] Only [facility] [address] [place] [address] Mery Torre MD [address] [place] [address] Social History Tobacco Use Types Packs/Day Years [...] on filedocumented in this encounter Care Teams Senior Clerk Relationship Specialty Start Date End Date Mery Torre MD 230 [place] [address] PCP - General Family Medicine 01/10/22 documented as of this encounter
--- OUTSIDE RECORDS SUMMARY | 2024-12-21 10:04 | XMS_ITS | Encounter Summary ---
Author Organization [employer] Address 75 [facility] 7t [place] [address] Care Team Providers Care Property Officer Name Role Phone Mery Torre MD Primary Care Provider Encounter Details Date Type Department Care Team (Late st Contact Info) Description 10/22/2023 Abstract [facility] MED & PEDS 505 [place] [address] Mery Torre MD 505 [place], [place] [phone] Social History Tobacco Use Types Packs/Day Years [...] documented as of this encounter Care Teams Property Officer Relationship Specialty Start Date End Date Mery Torre MD [address] [place] [phone] PCP - General Family Medicine 01/10/22 documented as of this encounter
--- OUTSIDE RECORDS SUMMARY | 2024-12-21 10:04 | XMS_ITS | Encounter Summary ---
Author Organization [employer] Address 75 [facility] 7t [place] [address] Care Team Providers Care Supervisor Publications Production Name Role Phone Mery Torre MD Primary Care Provider [phone] Reason for Visit * Reason Comments Med Refill Encounter Details Date Type Department Care Team ([facility] Contact Info) Description 02/05/2024 Refill [facility] MED & PEDS 505 [place] [address] Mery Torre MD 505 [place] [address] Social History Tobacco Use Types Packs/Day Years [...] as of this encounter Care Teams Supervisor Publications Production Relationship Specialty Start Date End Date Mery Torre MD [address] [place] [phone] PCP - General Family Medicine 01/10/22 documented as of this encounter
--- OUTSIDE RECORDS SUMMARY | 2024-12-21 10:04 | XMS_ITS | Encounter Summary ---
Author Organization [employer] Address 75 [facility] 7t [place] [address] Care Team Providers Care Marketing Sales Manager Name Role Phone Mery Torre MD Primary Care Provider [phone] Encounter Details Date Type Department Care Team (Late st Contact Info) Description 01/14/2024 Orders Only [facility] CH[facility] MED & PEDS [address] [place] [address] Provider, MD Claudia Social History Tobacco Use [...] documented as of this encounter Care Teams Marketing Sales Manager Relationship Specialty Start Date End Date Mery Torre MD [address] [place] [phone] PCP - General Family Medicine 01/10/22 documented as of this encounter
--- OUTSIDE RECORDS SUMMARY | 2024-12-21 10:04 | XMS_ITS | Encounter Summary ---
Author Organization [employer] Address 75 [facility] 7t [place] [address] Care Team Providers Care Sanitary Napkin Machine Tender Name Role Phone Mery Torre MD Primary Care Provider [phone] Reason for Visit * Reason Comments Med Refill Encounter Details Date Type Department Care Team ([facility] Contact Info) Description 04/07/2023 Refill [facility]C MED & PEDS 505 [place] [address] Mery Torre MD 505 [place] [address] Social History Tobacco Use Types Packs/Day Years [...] documented as of this encounter Care Teams Sanitary Napkin Machine Tender Relationship Specialty Start Date End Date Mery Torre MD [address] [place] [phone] PCP - General Family Medicine 01/10/22 documented as of this encounter
--- OUTSIDE RECORDS SUMMARY | 2024-12-21 10:04 | XMS_ITS | Clinical Summary ---
Author Organization [employer] Address 75 [facility] 7t [place] [address] Care Team Providers Care Trial Court Judge Name Role Phone Mery Torre MD Primary Care Provider [phone] Allergies Active Allergy Reactions Criticality Noted Date [...] the morning, at noon, and at bedtime. 06/12/19 23 Active ARIPiprazole (Abilify) 15 MG tablet Take 7.5 mg by mouth in the morning. Active pantoprazole (ProtoNix) 40 MG EC tablet Take 40 mg by mouth before breakfast. Do not crush, chew, or split. Active calcium carbonate 1500 (600 Ca) MG tablet TAKE 1 TABLET BY MOUTH TWICE DAILY 180 tablet 11 12/01/19 24 Active atorvastatin (Lipitor) 10 MG tabletIndicatio ns:Hypertension , unspecified type Take 1 tablet (10 mg) by mouth Once per day. TAKE 1 TABLET(10 MG) BY MOUTH IN THE MORNING 90 tablet 3 03/09/20 24 Active thiamine (Vitamin B-1) 50 MG tablet TAKE 2 TABLETS BY MOUTH EVERY MORNING 60 tablet 11 06/22/19 25 Active folic acid (Folvite) 400 MCG tablet TAKE 1 TABLET BY MOUTH EVERY MORNING 30 tablet 11 06/22/19 25 Active cyanocobalamin (Vitamin B-12) 500 MCG tablet TAKE 1 TABLET(500 MCG) BY MOUTH IN THE MORNING 90 tablet 3 07/30/19 25 Active cetirizine (ZyrTEC) 10 MG tablet TAKE 1 TABLET BY MOUTH EVERY MORNING 90 tablet 1 08/26/19 25 Active cholecalciferol VITAMIN D (Vitamin D-3) 50 MCG (1999) capsule TAKE 1 CAPSULE BY MOUTH EVERY DAY 90 capsule 3 09/25/19 25 Active losartan (Cozaar) 25 MG tablet Take 0.5 tablets (12.5 mg) by mouth Once per day. 30 tablet 11 12/22/19 25 Active aspirin 81 MG chewable tablet Chew 1 tablet (81 mg) Once per day. 90 tablet 3 12/22/19 25 Active amLODIPine (Norvasc) 10 MG tablet TAKE 1 TABLET(10 MG) BY MOUTH IN THE MORNING 90 tablet 1 10/17/19 24 025 Discontinued losartan (Cozaar) 25 MG tablet TAKE 1 TABLET(25 MG) BY MOUTH IN THE MORNING 30 tablet 11 04/08/20 24 025 Discontinued aspirin 81 MG chewable tablet CHEW AND SWALLOW 1 TABLET BY MOUTH EVERY MORNING 90 tablet 1 08/26/19 25 025 Discontinued(Re order (will not trigger notification to Pharmacy)) Active Problems Problem Noted Date Diagnosed Date History of SC (myocardial infarction) 10/03/2022 Neurogenic bladder 07/03/2022 Anxiety 07/03/2022 HTN (hypertension) 04/16/2022 Encounters Date Type Department Care Team Description 12/21/2024 8:30 AM EDT Office Visit [facility] MED & PEDS [address] [facility] [place] [address] Mery Torre MD Primary hypertension (Primary Dx); Neurogenic bladder; Anxiety; Sleep apnea, unspecified type 12/21/2024 Telephone [facility] MED & PEDS [address] [facility] [place] [phone] Mery Torre MD Change PCP 12/21/2024 Travel 12/16/2024 Telephone [facility] MED & PEDS [address] [place] [address] Mery Torre MD Chart Prep 12/14/2024 Travel 12/10/2024 Patient Outreach [facility] MEDICINE [address] [place] [address] Mery Torre MD Pre-visit Planning (Pre visit planning unable to LVM ) 11/14/2024 Refill [facility] MED & PEDS [address] [place] [address] Mery Torre MD 10/11/2024 Telephone [facility] MEDICINE [address] [place] [phone] Mery Torre MD Appointment Request (Booked appt on 12/21/[address] Torre) 09/23/2024 Refill [facility] MED & PEDS [address] [place] [address] Mery Torre MD from Last 3 Months [...] 20 12/21/2024 8:56 AM EDT Oxygen Saturation 97% 03/05/2023 10:58 AM EST Inhaled Oxygen Concentration - - Weight 85.7 kg (189 lb) 12/21/2024 8:56 AM EDT Height 157.5 cm (5' 2 ) 12/21/2024 8:56 AM EDT Body Mass Index 34.57 12/21/2024 8:56 AM EDT Plan of Treatment Health Maintenance [...] 2023 03/29/2022, 03/18/2021, 08/13/2020, Additional history exists Depression Screening 03/05/2024 03/05/2023, 03/05/20 23 Tobacco Screening 03/05/2024 03/05/2023 Influenza Vaccine (#1) 2024 , 12/20/2022, 01/01/2022, Additional history exists Mammogram 05/12/2025 05/12/2024, 0 05/2023, 05/09/2023, Additional history exists Disability Screening 12/14/2025 12/14/2024 DTaP/Tdap/Td Vaccines (3 - Td or Tdap) [...] Years) and At-Risk Patients (6 to 49) Years Aged Out No longer eligible based on [...] AM EST Narrative 05/22/2024 1:30 PM EST [facility] [address] [place], [place] [address] Mammography Report Signed Patient: Niya Haji MR#: [id number] : 1975 Acct:[id number] Age/Sex: 49 / F ADM Date: 05/12/24 Loc: HO.MAMMO Attending Dr: Mery Torre MD Ordering Physician: Mery Torre MD Results: 2Benign Findings Date of Service: 05/12/24 Follow Up: 1 Year From Orig ina Mammogram Procedure(s): MM tomosynthesis screening BI Accession Number(s): [id number] cc: Mery Torre MD EXAMINATION: MM SCREENING [...] 05/22/24 1327 DD/ 0815 TD/TT: 05/12/24 0836 Heavy Equipment Plumbing Supervisor: Procedure Note Donotuseinterpreter, Image - [facility]/22/[facility] [address] [place] [address] Mammography Report Signed Patient: Mahsa Haji#: [id number] : 1975Acct:[id number] Age/Sex: 49 / FADM Date: 05/12/24 Loc: HO.MAMMO Attending Dr: Mery Torre MD Ordering Physician: Mery Torre MDResults: 2Benign Findings Date of Service: 05/12/24Follow Up: 1 Year From Orig ina Mammogram Procedure(s): MM tomosynthesis screening BI Accession Number(s): [id number] cc: Mery Torre MD EXAMINATION: MM SCREENING [...] 05/22/24 1327 DD/ 0815 TD/TT: 05/12/24 0836 Heavy Equipment Plumbing Supervisor: Mery Torre MD IMG BI PROCEDURES Edited Result - Final * Lipid Panel, Standard (11/12/2023 12:00 AM EDT) Triglycerides 36 <150 mg/dL [facility] Comment:Desirable Triglyceri de: less than 150 mg/dLBorderline High Triglyceride 150-199 mg/dLHigh Triglyceride: 200-499 mg/dLVery High Triglyceride: greater than or equal to 5OO mg/dL Cholesterol 125 <200 mg/dL [facility] Comment:Desirable Cholestero l: less than 200 mg/dLBorderline High Cholesterol: 200-239 mg/dLHigh Cholesterol: greater than 239 mg/dL LDL Cholesterol Calculated 63 <100 mg/dL [facility] Comment:Desirable LDL: less than 100 mg/dLNear Optimal/Above Optimal LDL: 110- 129 mg/dLBorderline High LDL: 130-159 mg/dLHigh LDL: 160-189 mg/dLVery High LDL: greater than or equal to 190 mg/dL HDL Cholesterol 55 >40 mg/dL [facility] Comment:Desirable HDL: great er than 40 mg/dL Note: This HDL assay may give artificially low results in patients with liver disease. Blood Venous blood specimen / Unknown 11/12/2023 11/12/2023 us Mery Torre MD LAB BLOOD ORDERABLES Final Resul t [facility] [address] [place], [place] [phone] from Last 3 Months or Most Recently Relevant to Health Maintenance Insurance [employer] < 65 [place] [id number] Relationship Specialty Start Date End Date Mery Torre MD [address] [place] [phone] PCP - General Family Medicine 01/10/22
--- OUTSIDE RECORDS SUMMARY | 2024-12-21 10:04 | XMS_ITS | Encounter Summary ---
Author Organization [employer] Address 75 [facility] 7 [place] [address] Care Team Providers Care Forest Pathology Associate Professor Name Role Phone Mery Torre MD Primary Care Provider [phone] Reason for Visit * Reason Onset Date Comments Results 03/29/2022 Encounter Details Date Type Department Care Team ([facility] st Contact Info) Description 03/29/2022 Telephone [facility] MED & PEDS [address] [place] [address] Mery Torre MD 505 [place] [address] Results Social History Tobacco Use Types Packs/Day [...] - 04/11/2022 3:38 PM EST Pt insurance [facility] denied pt for lido/prilocn 2.5 * Telephone Encounter - Piedad Strickland - 04/11/2022 10:57 AM EST TC from pt requesting Pulmonary function test results . Pt spoke with [facility] and they stated they had already faxed results in . Please contact [phone]. * Telephone Encounter - Raine Rojas - 04/05/2022 12:24 PM EST Tc from pt requesting a call regarding test results for sleep study, and pulmonary function test. * Telephone Encounter - Alexander Shepherd RN - 04/01/2022 11:47 AM EST TC placed, spoke to requesting PFT results that was done last Friday at [facility]. Pt was also requesting sleep apnea [...] on filedocumented in this encounter Care Teams Forest Pathology Associate Professor Relationship Specialty Start Date End Date Mery Torre MD [address] [place] [phone] PCP - General Family Medicine 01/10/22 documented as of this encounter
--- OUTSIDE RECORDS SUMMARY | 2024-12-21 10:04 | XMS_ITS | Encounter Summary ---
Author Organization [employer] Address 75 [facility] 7[address] [place] [address] Care Team Providers Care Registered Pharmacist Name Role Phone Mery Torre MD Primary Care Provider [phone] Encounter Details Date Type Department Care Team (Late st Contact Info) Description 04/16/2022 Orders Only [facility] MEDICINE [address] [place] [address] Mery Torre MD [address] [place] [phone] Pain (Primary Dx) Social History Tobacco Use [...] pain documented in this encounter Care Teams Registered Pharmacist Relationship Specialty Start Date End Date Mery Torre MD [address] [place] [address] PCP - General Family Medicine 01/10/22 documented as of this encounter
[2024-12-21 14:05] LABS: MANUAL DIFF FLAG NO
[2024-12-21 14:20] LABS: Hematocrit 41.0 % (37.0-47.0); Hemoglobin 13.4 g/dl (12.0-16.0); Imm Gran Abs Auto 0.01 X10*3/uL (0.00-0.03); Imm Gran Pct Auto 0.2 % (0.0-0.4); Lymphocytes Absolute Auto 1.3 X10*3/uL (1.2-4.9); Mean Corpuscular HGB Conc 32.7 g/dl (31.0-35.0); Mean Corpuscular Hemoglobin 27.2 pg (27.0-33.0); Mean Corpuscular Volume 83.2 fL (80.0-98.0); NRBC Abs Auto 0.000 X10*3/uL (0.0-0.012); NRBC Pct Auto 0.0 /100WBC (0.0-0.2); Platelet Count 254 X10*3/uL (160-400); Red Blood Count 4.93 X10*6/uL (4.20-5.50); White Blood Count 5.3 X10*3/uL (4.8-10.8)
[2024-12-21 14:45] LABS: Alanine Aminotransferase 9 U/L (0-31); Albumin Level 4.4 g/dL (3.5-5.0); Alkaline Phosphatase 46 U/L (39-117); Anion Gap 12 (12-20); Aspartate Amino Transferase 18 U/L (5-31); Blood Urea Nitrogen 11 mg/dL (9-16); Calcium 9.0 mg/dL (8.4-10.2); Carbon Dioxide 24 mmol/L (22-29); Chloride 108 mmol/L (96-108); Estimated Glomerular Filt Rate > 60; Potassium 4.3 mmol/L (3.3-5.1); Sodium 140 mmol/L (135-145); Total Protein 6.5 g/dL (6.5-8.0)
[2024-12-21 14:50] LABS: Alanine Aminotransferase 11 U/L (0-31); Albumin Level 4.5 g/dL (3.5-5.0); Alkaline Phosphatase 51 U/L (39-117); Anion Gap 12 (12-20); Aspartate Amino Transferase 18 U/L (5-31); Blood Urea Nitrogen 12 mg/dL (9-16); Calcium 9.1 mg/dL (8.4-10.2); Carbon Dioxide 25 mmol/L (22-29); Chloride 107 mmol/L (96-108); Cholesterol 117 mg/dL (<200); Estimated Glomerular Filt Rate > 60; HDL Cholesterol 40 mg/dL (>40); Potassium 4.1 mmol/L (3.3-5.1); Sodium 140 mmol/L (135-145); Total Protein 6.8 g/dL (6.5-8.0); Triglycerides 39 mg/dL (<150)
[2024-12-21 15:30] LABS: Hemoglobin A1C 129.3669 umol/L; Total Hemoglobin (HGBA1C) 3529.0997 umol/L
== END 2024-12-21 09:27 | disposition home or self-care (01) ==
LOC: HO.CHCLDS 09:26
PROVIDERS: PCP Student in an Organized Health Care Education/Training Program; Referring Provider Nurse Practitioner Psychiatric/Mental Health; Visit Provider Student in an Organized Health Care Education/Training Program
DX: I10 Essential (primary) hypertension (principal); Z79.899 Other long term (current) drug therapy
CPT/HCPCS: 36415; 80048; 80053; 80061; 80076; 82248; 83036; 85025

== ENCOUNTER 2025-02-22 09:58 | Outpatient (AMB) | payer OTHER, SELFPAY ==
--- NOTE | 2025-02-22 10:03 | A.OFFVIS_ITS ---
Vital Signs 02/22/25 10:04 Height 5 ft 3 in Weight 182 lb BMI 32.2 BP 114/76 Intake Visit Reasons: PLANT TECH annual exam Heavy Mobile Equipment Operator: Heavy Mobile Equipment Operator Present (Swapna) Allergies Penicillins Allergy (Severe, Verified 02/22/25 10:04) ITCHING/SWELLING doxycycline (DOXYCYCLINE) Allergy (Intermediate, Verified 02/22/25 10:04) SEVERE ITCHING, pruritis penicillin G Allergy (Unknown, Verified 02/22/25 10:04) Unknown rosuvastatin (From Crestor) Allergy (Unknown, Verified 02/22/25 10:04) Unknown tetracycline Allergy (Unknown, Verified 02/22/25 10:04) Unknown clindamycin Allergy (Verified 02/22/25 10:04) Gastrointestinal Upset famotidine Allergy (Verified 02/22/25 10:04) Anaphylaxis Sulfa (Sulfonamide Antibiotics) Allergy (Verified 02/22/25 10:04) Chest Pain mirabegron (From Myrbetriq) Adverse Reaction (Severe, Verified 02/22/25 10:04) tachycardia escitalopram (From Lexapro) Adverse Reaction (Unknown, Verified 02/22/25 10:04) Palpitations oseltamivir (From Tamiflu) Adverse Reaction (Unknown, Verified 02/22/25 10:04) Palpitations rabeprazole Adverse Reaction (Unknown, Verified 02/22/25 10:04) Chest Pain nirmatrelvir (From Paxlovid) Adverse Reaction (Verified 02/22/25 10:04) Headache ritonavir (From Paxlovid) Adverse Reaction (Verified 02/22/25 10:04) Headache Is last menstrual period known: Yes Last menstrual period: 02/05/25 HPI Comments Details: Patient is a premenopausal woman presenting for annual examination. Billing Rep concerns: cycles q 24d, not as heavy. Hot flashes. Missed appt. at [facility] for consult due to her father being ill, and 12/2024. Currently is not sexually active. She denies vaginal itching or irritation. She tries to eat healthy and stays active with limited exercise due to knee pain. Denies family history of breast, ovarian or colon cancer. Last pap smear 2020, negative. Mammogram: 2024. [facility] Medical History Anxiety Sleep apnea IBS (irritable bowel syndrome) Insomnia GERD (gastroesophageal reflux disease) Hyperlipidemia TIA (transient ischemic attack) Coronary artery disease Morbid obesity Overactive bladder Partial bowel obstruction Hospital discharge follow-up Abnormal CT of the abdomen Hyperkalemia Small bowel obstruction Lab test negative for COVID-19 virus History of urinary incontinence History of VA (myocardial infarction) Rectal prolapse Arthritis Bipolar II disorder Back pain Optic neuritis Fibromyalgia Dyspnea Obesity Surgical History History of surgery History of carpal tunnel release of both wrists Hx of thumb surgery History of pubovaginal sling (10/19/19) H/O cystoscopy (06/08/19) History of total right knee replacement (06/2016) History of total left knee replacement (TKR) (11/2016) Family History Mother Afib Heart disease Father Cardiac failure Respiratory failure Brother Afib Brother Hypertension Brother Hypertension Son No problems noted. Social History Household Members: Family Housing: House Alcohol intake: current Alcohol intake frequency: holidays/special occasions only Comment: sleeping Patient Tobacco Use Status: Former Tobacco user Tobacco use type: Cigarette Cigarette Packs Per Day: 1 Cigarettes Per Day: 20 Years Smoked: 20 Second Hand Smoke Exposure: No Substance Use Type: Marijuana service: No Current occupational status: unemployed Female Reproductive History Menstrual Duration of menses: 3-5 days Date of last menstrual period: 02/05/25 Total pregnancies: 1 Full term: 1 Number of Living Children: 1 Date of last pap smear: 09/11/20 (neg pap and hpv) Date of Mammogram: 05/12/24 (Birad 2) Review of Systems Const All systems reviewed & are unremarkable except as noted in HPI and below Reports as per HPI Eyes Reports no additional complaints ENT Reports no additional complaints Card Reports no additional complaints Resp Reports no additional complaints GI Reports as per HPI and Reports no additional complaints Reports as per HPI Musc Reports no additional complaints Skin/Breast Reports as per HPI Neuro Reports no additional complaints Psych Reports no additional complaints Endo Reports no additional complaints Omar/Lymph Reports no additional complaints Aller/Immun Reports no additional complaints Physical Exam Vital Signs: Last Vital Signs BP 114/76 02/22/25 10:04 BMI result Body Mass Index 32.2 Const General: cooperative, healthy appearing, no acute distress, well developed and alert Orientation/consciousness: patient oriented x3 HEENT Head: Yes normal to inspection Eyes General: appearance normal, both eyes and all related structures Neck Neck: Yes normal visual inspection Thyroid: Thyroid normal Chest Chest palpation & inspection: normal inspection of the chest and other (no pucke ring, dimpling, peau de orange, retraction, discharge, masses) Breast/axilla inspection: normal inspection of the breasts Breast/axilla palpation: normal palpation of the breasts Resp Effort & Inspection: normal respiratory effort GI Inspection: Yes normal to inspection Palpation (GI): Soft to palpation Rectal Exam - Female: deferred General: Yes bladder normal to palpation External Female Exam: normal external appearance and normal appearance of the urethra Speculum Exam - Vagina: normal appearance of the vagina, normal palpation and normal vaginal discharge Speculum Exam - Cervix: normal appearance of the cervix and normal palpation Bimanual exam- vagina & uterus: normal bimanual exam, normal palpation, uterine size normal, bladder normal to palpation, normal palpation and non-tender Bimanual Exam- Adnexa, other: no masses Skin General skin exam: no rashes or lesions noted Rashes: no rashes Neuro General: patient oriented x3 Cognition (Neuro): normal cognition Extrem General: Yes normal to inspection Psych Attitude: cooperative Thought process: Normal thought process present Assessment & Plan Assessment & Plan (1) Encounter for well woman exam with routine gynecological exam: Code(s): Z01.419 - Encounter for gynecological examination (general) (routine) without abnormal findings Category: Medical Plan Discussed: Current recommendations for pap smears per ASCCP guidelines. Breast awareness and periodic breast exams. Mammogram yearly. Maintain a healthy lifestyle including a well balanced diet and routine exercise. Consult for high-risk medical w/AUB resent to [facility]. Patient encouraged to attend, benefits of information and future planning. Options may include uterine ablation for treatment of AUB. Monitor menstrual cycles, report any unscheduled bleeding, bleeding episodes <24 days apart or heavy/prolonged menstrual bleeding. Call the office for a follow up for any concerns. Patient verbalizes understanding and agrees to the plan of care. She was given opportunity to ask questions and all questions were answered to the best of my ability. RTO in one year for annual rock loader examination. This note is constructed using voice recognition software. While every effort has been made to ensure accuracy, asw/asuw tactical air controller errors may have been included. Coding Level of Care Code Est Pt Prev Care 40-64y(48476) Diagnoses Encounter for well woman exam with routine gynecological exam Z01.419
[2025-02-22 10:04] VITALS: BP 114/76; BMI 32.2
--- OUTSIDE RECORDS SUMMARY | 2025-02-22 11:50 | XMS_ITS | Encounter Summary ---
Author Organization [employer] Address [address] [facility] [address] [place] [address] Care Team Providers Care Research And Development Manager Name Role Phone Mery Torre MD Primary Care Provider [phone] Kerry Dunaway MD Primary Care Provider Reason for Visit * Reason Onset Date Comments Results 03/29/2022 Encounter Details Date Type Department Care Team (Late st Contact Info) Description 03/29/2022 Telephone [facility] MED & PEDS [address] [place] [address] Mery Torre MD [address] [place] [address] Results Social History Tobacco Use Types Packs/Day [...] - 04/11/2022 3:38 PM EST Pt insurance [facility] denied pt for lido/prilocn 2.5 * Telephone Encounter - Piedad Strickland - 04/11/2022 10:57 AM EST TC from pt requesting Pulmonary function test results . [facility] with [facility] and they stated they had already faxed results in . Please contact [phone]. * Telephone Encounter - Ranie Rojas - 04/05/2022 12:24 PM EST Tc from pt requesting a call regarding test results for sleep study, and pulmonary function test. * Telephone Encounter - Alexander Shepherd RN - 04/01/2022 11:47 AM EST TC placed, spoke to requesting PFT results that was done last Friday at [facility]. Pt was also requesting sleep apnea [...] Care Team (Late st Contact Info) Description 03/08/2025 10:15 AM EST Office Visit [facility] MED & PEDS [address] [place] [address] Kerry Dunaway MD [address] [place] [address] documented as of this encounter Visit Diagnoses Not on filedocumented in this encounter Care Teams Research And Development Manager Relationship Specialty Start Date End Date Mery Torre MD [address] [place] [phone] PCP - General Family Medicine 01/10/22 02/21/25 Kerry Dunaway MD [address] [place] [phone] PCP - General Internal Medicine 02/22/25 documented as of this encounter
--- OUTSIDE RECORDS SUMMARY | 2025-02-22 11:50 | XMS_ITS | Clinical Summary ---
Author Organization [address] [facility] Address [address] [place] [address] Phone Care Team Providers Care Male Infertility Specialist Name Role Phone Mery Torre MD Primary Care Provider [phone] Allergies Active Allergy Reactions Criticality Noted Date Comments Clindamycin 10/08/2023 Famotidine Hives 03/05/2023 Constipation Oseltamivir 11/11/2023 Penicillin G Potassium Rash,Swelling 04/08/2005 Penicillins Rash,Swelling High 03/19/2017 Other Reaction(s): swell up mouth face Other reaction(s): Hives/Skin Rash, ITCHING/SWELLING Rabeprazole 10/08/2023 Rosuvastatin Headache 03/05/2023 Sulfa (Sulfonamide Antibiotics) Palpitations,Shortne ss of breath High 03/05/2023 Sulfamethoxazole-Trimeth oprim Unknown 12/24/2024 Other Reaction(s): arms shakey weak Tetracyclines Unknown High 03/19/2017 Other Reaction(s): tongue itchy Other reaction(s): Hives/Skin Rash, SEVERE ITCHING, pruritis Trimethoprim 01/03/2021 Other reaction(s): Hives / Skin Rash Medications docusate sodium (Colace) 100 mg capsule Take 1 capsule (100 mg total) by mouth 2 (two) times a day. 180 each 2 5 05/08/19 26 Active thiamine (VITAMIN B-1) 50 mg tablet Take 2 tablets (100 mg total) by mouth 1 (one) time each day in the morning. 5 Active tretinoin (RETIN-A) 0.05 % cream APPLY A PEA SIZED AMOUNT TO FACE NIGHTLY 5 Active trospium 60 mg capsule,extende d release 24hr TAKE 1 CAPSULE BY MOUTH DAILY ON EMPTY STOMACH AT LEAST 1 HOUR BEFORE A MEAL 5 Active ketoconazole (NIZORAL) 2 % shampoo 5 Active losartan (COZAAR) 25 mg tablet 5 Active folic acid (FOLVITE) 400 mcg tablet Take 1 tablet (0.4 mg total) by mouth 1 (one) time each day in the morning. 5 Active cholecalciferol (VITAMIN D-3) 50 mcg (2,000 unit) capsule Take 1 capsule (2,000 Units total) by mouth 1 (one) time each day. 5 Active aspirin 81 mg chewable tablet CHEW AND SWALLOW 1 TABLET BY MOUTH EVERY MORNING 5 Active atorvastatin (LIPITOR) 10 mg tablet 5 Active ARIPiprazole (ABILIFY) 15 mg tablet Take 7.5 mg by mouth 1 (one) time each day. 5 Active clonazePAM (KlonoPIN) 1 mg tablet Take 1 tablet (1 mg total) by mouth 3 (three) times a day if needed. for anxiety 5 Active cyanocobalamin (VITAMIN B-12) 500 mcg tablet 5 Active FLUoxetine (PROzac) 10 mg capsule Take 1 capsule (10 mg total) by mouth 1 (one) time each day. 4 Active pantoprazole (PROTONIX) 40 mg EC tablet Take 1 tablet (40 mg total) by mouth 2 (two) times a day before meals. 180 tablet 3 5 Active pantoprazole (PROTONIX) 40 mg EC tablet Take 1 tablet (40 mg total) by mouth 2 (two) times a day before meals. 01/27/20 25 Discontinu ed(Reorder ) Encounters Date Type Department Care Team Description 02/02/2025 Results Follow-Up Gastroenterology - [place] [address] [facility] [address] [facility] [address] [place] [address] Aria Fernandez PA 01/28/2025 7:54 AM EDT - 01/28/2025 11:59 PM EDT Hospital Encounter [facility] Nuclear Medicine [address] [place] [phone] Gastroesophageal reflux disease with esophagitis without hemorrhage; NAFLD (nonalcoholic fatty liver disease) Discharge Disposition: Home or Self Care 01/26/2025 8:30 AM EDT Office Visit Gastroenterology - [place] [address] [facility] [address] [facility] [address] [place] [phone] Aria Fernandez PA Gastroesophageal reflux disease with esophagitis without hemorrhage (Primary Dx); NAFLD (nonalcoholic fatty liver disease); RUQ abdominal pain 12/24/2024 11:00 AM EDT Office Visit Orthopedic Surgery - [place] [address] [facility] [address] [place] [address] Coco Ansari PA Bilateral thumb pain (Primary Dx) from Last 3 Months Surgical History Surgery [...] Value Date Recorded Sex Assigned at Female 01/26/2025 3:05 PM EDT Legal Sex Female 10:14 AM EST Gender Identity Not on file Sexual Orientation Not on file Obstetrics History Last Filed Vital Signs Vital Sign Reading Time Taken Comments Blood Pressure 140/92 01/26/2025 8:35 AM EDT Pulse 88 01/26/2025 8:35 AM EDT Temperature - - Respiratory Rate - - Oxygen Saturation 98% 01/26/2025 8:35 AM EDT Inhaled Oxygen Concentration - - Weight 82.4 kg (181 lb 9.6 oz) 01/28/2025 8:00 A M EDT Height 160 cm (5' 3 ) 01/26/2025 8:35 AM EDT Body Mass Index 32.17 01/26/2025 8:35 AM EDT Plan of Treatment Upcoming Encounters Date Type Department Care Team (Late st Contact Info) Description 03/28/2025 8:00 AM EST Office Visit Orthopedic Surgery - [place] [address] [facility] [address] [place] [phone] Coco Ansari PA [address] [place] [phone] 06/24/2025 8:30 AM EST Office Visit Orthopedic Surgery - [place] [address] [facility] [address] [place] [phone] Coco Ansari PA [address] [place] [phone] 07/28/2025 8:30 AM EDT Office Visit Gastroenterology - [address] [facility] [address] [facility] [address] [place] [phone] Aria Fernandez PA [address] [place] [phone] Health Maintenance Due Date Last Done Comments Breast Cancer Screening 1977 Colorectal Cancer Screening: Colonoscopy 1977 Cervical Cancer Screening: Pap Smear 1998 HIV Screening 04/06/2022 Medicare Annual Wellness Visit 04/06/2022 Social Influencers of Health Screening 04/06/2022 Depression Screening 04/28/2024 COVID-19 Vaccine ( season) 2024 03/29/2022, 03/18/2021, 08/13/2020, Additional history exists Hypertension/CHF/CAD Annual BMP Blood Test 12/21/2025 12/21/2024 DTaP,Tdap,and Td Vaccines (3 - Td or Tdap) 10/03/2026 10/03/2016, 07/22/2006 Cholesterol Screening (Lipid Panel) 12/21/2029 12/21/2024 RSV Immunization Adult Patients (1 - 1-dose 75+ series) 2052 Hepatitis B Vaccines Completed 02/04/2007, 09/04/2006, 08/05/2006 Influenza Vaccine Completed 01/13/2025, , 12/20/2022, Additional history exists Hepatitis C Screening Completed 01/26/2025 HIB Vaccines Aged Out No longer eligi [...] 49 Years) Aged Out No longer eligible based on patient's age to complete this topic RSV Immunization Patients Under 20 months Aged Out No longer eligible based on patient's age to complete this topic Varicella Vaccines Aged Out No longer eligible based on patient's age to complete this topic Procedures Procedure Name Priority Date/Time Associated Diagnosis Comments NM HEPATOBILIARY SYSTEM IMAGING W DRUG Routine 01/28/2025 11:57 AM EDT Gastroesophageal reflux disease with esophagitis without hemorrhage NAFLD (nonalcoholic fatty liver disease) HEPATITIS PANEL, ACUTE WITH REFLEX TO CONFIRMATION Routine 01/26/2025 1:07 PM EDT Fatty metamorphosis of liver XR FINGERS 2+ VIEWS BILATERAL Routine 12/24/2024 11:24 AM EDT Bilateral thumb pain MI ARTHROCENTESIS/ASPIRA TION/INJECTION SMALL JOINT/BURSA WO U/S GUIDANCE Routine 12/24/2024 11:00 AM EDT Bilateral thumb pain from Last 3 Months Results * NM Hepatobiliary System Imaging W Drug (01/28/2025 11:57 AM EDT) Anatomical Region Laterality Modality Body Nuclear Medicine 02/01/2025 5:14 PM EDT Impressions 02/01/2025 5:14 PM EDT Impression: 1. No evidence of cystic or common bile duct obstruction. 2. Normal gallbladder ejection fraction. Telerad CECELIA ([id number]) -------- FINAL REPORT -------- Dictated By: Aletha Chung Dictated Date: 02/01/2025 17:14 ET Assigned Physician: Aletha Chung Reviewed and Electronically Signed By: Aletha Chung Signed Date: 02/01/2025 17:14 ET Workstation ID: [id number] Transcribed By: Self Edit Transcribed Date: 02/01/2025 17:14 ET Narrative 02/01/2025 5:14 PM EDT History: Right upper quadrant abdominal pain. Technique: Continuous anterior imaging of the abdomen was performed for 60 minutes following the intravenous administration of 4.2 mCi technetium 99m Choletec. After confirmation of bowel activity, 1.6 mcg of cholecystokinin were administered intravenously over 30 minutes. Additional imaging was performed during this time and the gallbladder ejection fraction was calculated. Findings: The initial image demonstrates a normal, homogeneous pattern of radiotracer distribution throughout the liver. Activity is seen within the bile ducts by 5 minutes, within the gallbladder by 10 minutes, and within the small bowel by 10 minutes. There is normal washout of hepatic activity. The gallbladder ejection fraction is 92 percent at 30 minutes, within the range of normal. Procedure Note Aletha Chung MD - 02/01/2025 History: Right upper quadrant abdominal pain. Technique: Continuous anterior imaging of the abdomen was performed for 60minutes following the intravenous administration of 4.2 mCi technetium 99mCholetec. After confirmation of bowel activity, 1.6 mcg of cholecystokininwere administered intravenously over 30 minutes. Additional imaging wasperformed during this time and the gallbladder ejection fraction wascalculated. Findings: The initial image demonstrates a normal, homogeneous pattern ofradiotracer distribution throughout the liver. Activity is seen within thebile ducts by 5 minutes, within the gallbladder by 10 minutes, and withinthe small bowel by 10 minutes. There is normal washout of hepatic activity. The gallbladder ejection fraction is 92 percent at 30 minutes, within therange of normal. IMPRESSION: Impression: 1. No evidence of cystic or common bile duct obstruction. 2. Normal gallbladder ejection fraction. Telerad CECELIA ([id number]) -------- FINAL REPORT -------- Dictated By: Aletha Chung Dictated Date: 02/01/2025 17:14 ET Assigned Physician: Aletha Chung Reviewed and Electronically Signed By: Aletha Chung Signed Date: 02/01/2025 17:14 ET Workstation ID: [id number] Transcribed By: Self Edit Transcribed Date: 02/01/2025 17:14 ET Aria RAI IMG NM PROCEDURES Final Resul t * Hepatitis panel, acute with reflex to confirmation (01/26/2025 1:07 PM EDT) Hepatitis B Surface Ag Negative Negative LAB CHEMISTRY METHOD 01/26/2025 7:19 PM EDT [facility] Hepatitis A Antibody IgM Negative Negative LAB CHEMISTRY METHOD 01/26/2025 7:19 PM EDT [facility] Hep B Core IgM Negative Negative LAB CHEMISTRY METHOD 01/26/2025 7:19 PM EDT [facility] Hepatitis C Antibody Negative Negative LAB CHEMISTRY METHOD 01/26/2025 7:19 PM EDT [facility] Blood Venous blood specimen / Unknown Venipuncture / Unknown 01/26/2025 1:07 PM EDT 01/26/2025 1:07 PM EDT Aria RAI LAB BLOOD ORDERABLES Final Re sult [facility] [address] [place] [address], [place] [phone] * XR Fingers 2+ Views bilat (12/24/2024 11:24 AM EDT) Anatomical Region Laterality Modality Upper Extremities, Fingers Bilateral Compu rosalio Radiography Narrative 12/24/2024 12:51 PM EDT Date of Visit: 12/24/2024 Reason for visit: Bilateral thumb pain Views: AP, oblique and lateral bilateral thumb Comparison: X-rays in 2022 Findings: Right thumb there does appear to be subsidence of the metacarpal. Narrowing of the space between the scaphoid and right thumb metacarpal. Anchors visualized from prior trapeziectomy. 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 Impression: Right thumb metacarpal subsidence left thumb basal joint arthritis, slightly worse compared to previous x-rays Coco RAI IMG XR PROCEDURES Final Resul t * MI ARTHROCENTESIS/ASPIRATION/INJECTION SMALL JOINT/BURSA WO U/S GUIDANCE (12/24/2024 11:00 AM EDT) Coco Diallo PA - 12/24/2024 11:00 AM EDT CECELIA Moreira 12/24/2024 12:54 PM Hand / UE Inj/Asp: L thumb CMC for osteoarthritis Indications: pain Details: 25 G needle, dorsal approach Medications: 1 mL lidocaine 1 %; 40 mg triamcinolone acetonide 40 mg/mL Informed Consent: Laterality: Left Relevant images/test results available and reviewed: yes Health status cleared: Yes Procedure/treatment, purpose, treatment alternatives, risks/potential complications and benefits explained: yes Risk/complications/benefits details: Risks of infection, thinning of the skin and temporary skin discoloration discussed. Discussed risks of temporary increased pain after injection and swelling and mild redness at injection site for couple days. Explained occasionally cortisone injection can cause facial flushing temporarily. Benefits pain management. For postop injection pain ice, Tylenol and/or NSAIDs if patient can take Patient questions answered: yes Patient agrees, verbalizes understanding, and wants to proceed: yes Consent given by: Patient Pre-procedure timeout performed: yes Coco RAI IN CLINIC/BEDSIDE ORDERABLES Final Result from Last 3 Months Insurance [employer] MEDICARE Member Subscriber Plan / Payer (Ef fective 2019-Present) Name:JOSEPH HAGAN Relation to Subscriber:Self Name:Joseph Hagan Payer ID:[id number] Group ID:[id number] Type:Not on file Address: [place] [address] [address] Care Teams Male Infertility Specialist Relationship Specialty Start Date End Date Mery Torre MD [address] [place] [address] PCP - General 05/30/22 02/25/25
--- OUTSIDE RECORDS SUMMARY | 2025-02-22 11:50 | XMS_ITS | Encounter Summary ---
Author Organization [employer] Address [address] [place] [address] Care Team Providers Care Quality Systems Engineer Name Role Phone Mery Torre MD Primary Care Provider [phone] Kerry Dunaway MD Primary Care Provider Encounter Details Date Type Department Care Team (Late Contact Info) Description 04/16/2022 Orders Only [facility] MEDICINE [address] [place] [address] Mery Torre MD [address] [place], [place] [phone] Pain (Primary Dx) Social History Tobacco Use [...] Department Care Team (Late Contact Info) Description 03/08/2025 10:15 AM EST Office Visit [facility] CHC MED & PEDS [address] [place], [place] [phone] Kerry Dunaway MD [address] [place] [address] documented as of this encounter Visit Diagnoses Diagnosis Pain- Primary Generalized pain documented in this encounter Care Teams Quality Systems Engineer Relationship Specialty Start Date End Date Mery Torre MD [address] [place] [id number] PCP - General Family Medicine 01/10/22 02/21/25 Kerry Dunaway MD [address] [place] [address] PCP - General Internal Medicine 02/22/25 documented as of this encounter
--- OUTSIDE RECORDS SUMMARY | 2025-02-22 11:50 | XMS_ITS | Encounter Summary ---
Author Organization [employer] Address [address] [facility] 7t [place] [address] Care Team Providers Care Granite Polisher Name Role Phone Mery Torre MD Primary Care Provider [phone] Kerry Dunaway MD Primary Care Provider [phone] Encounter Details Date Type Department Care Team (Late st Contact Info) Description 12/28/2024 Orders Only [facility] MED & PEDS [address] [place] [address] Provider, MD Claudia Social History Tobacco Use [...] Description 03/08/2025 10:15 AM EST Office Visit [facility] MED & PEDS [address] [place], [place] [phone] Kerry Dunaway MD [address] [place] [address] documented as of this encounter Procedures Procedure Name Priority Date/Time Associated Diagnosis Comments XR FINGERS 2+ VIEWS BILATERAL Routine 12/24/2024 10:09 AM EDT documented in this encounter Results * XR Fingers 2+ Views Bilateral (12/24/2024 10:09 AM EDT) Anatomical Region Laterality Modality Upper Extremities, Fingers Bilateral Radio graphic Imaging us Historical Provider MD BEAUCHAMP XR PROCEDURES Final R esult documented in this encounter Visit Diagnoses Not on filedocumented in this encounter Additional Health Concerns Assessment Noted Time PHQ-9 Depression Total Score: 7 03/05/20 23 11:02 AM EST documented as of this encounter Care Teams Granite Polisher Relationship Specialty Start Date End Date Mery Torre MD [address] [place] [address] PCP - General Family Medicine 01/10/22 02/21/25 Kerry Dunaway MD [address] [place] [address] PCP - General Internal Medicine 02/22/25 documented as of this encounter
--- OUTSIDE RECORDS SUMMARY | 2025-02-22 11:50 | XMS_ITS | Encounter Summary ---
Author Organization [employer] Address [address] [facility] 7t [place] [address] Care Team Providers Care Bargeman Name Role Phone Mery Torre MD Primary Care Provider [phone] Kerry Dunaway MD Primary Care Provider [phone] Reason for Visit * Reason Comments Med Refill Encounter Details Date Type Department Care Team ([facility] st Contact Info) Description 02/05/2024 Refill [facility] MED & PEDS [address] [place] [address] Mery Torre MD [address] [place] [address] Social History Tobacco Use Types Packs/Day Years [...] Description 03/08/2025 10:15 AM EST Office Visit [facility] MED & PEDS [address] [place] [address] Kerry Dunaway MD [address] [place] [address] documented as of this encounter Visit Diagnoses Not on filedocumented in this encounter Additional Health Concerns Assessment Noted Time PHQ-9 Depression Total Score: 7 03/05/20 23 11:02 AM EST documented as of this encounter Care Teams Bargeman Relationship Specialty Start Date End Date Mery Torre MD [address] [place] [address] PCP - General Family Medicine 01/10/22 02/21/25 Kerry Dunaway MD [address] [place] [address] PCP - General Internal Medicine 02/22/25 documented as of this encounter
--- OUTSIDE RECORDS SUMMARY | 2025-02-22 11:50 | XMS_ITS | Encounter Summary ---
Author Organization [employer] Address [address] [facility] [address] [place] [address] Care Team Providers Care Vehicle Modification Technician Name Role Phone Mery Torre MD Primary Care Provider [phone] Kerry Dunaway MD Primary Care Provider [phone] Encounter Details Date Type Department Care Team (Late Contact Info) Description 07/16/2022 Orders Only [facility] MED & PEDS [address] [place] [address] Mery Torre MD [address] [place] [address] Social History Tobacco Use Types Packs/Day Years [...] Description 03/08/2025 10:15 AM EST Office Visit [facility] MED & PEDS [address] [place] [address] Kerry Dunaway MD [address] [place] [address] documented as of this encounter Visit Diagnoses Not on filedocumented in this encounter Care Teams Vehicle Modification Technician Relationship Specialty Start Date End Date Mery Torre MD [address] [place] [address] PCP - General Family Medicine 01/10/22 02/21/25 Kerry Dunaway MD [address] [place] [address] PCP - General Internal Medicine 02/22/25 documented as of this encounter
--- OUTSIDE RECORDS SUMMARY | 2025-02-22 11:50 | XMS_ITS | Encounter Summary ---
Author Organization [facility] Address [address] [place] [address] Care Team Providers Care Piano Case Maker Name Role Phone Mery Torre MD Primary Care Provider [phone] Encounter Details Date Type Department Care Team (Late Contact Info) Description 02/02/2025 Results Follow-Up Gastroenterology - [place] [address] [facility] [address] [facility] [address] [place] [address] Aria Fernandez PA [address] [place] [phone] Social History Tobacco Use Types Packs/Day Years [...] as of this encounter Progress Notes * CECELIA Taylor - 02/02/2025 4:40 PM EDT I will send msg. documented in this encounter Plan of Treatment Upcoming Encounters Date Type Department Care Team ([facility] Contact Info) Description 03/28/2025 8:00 AM EST Office Visit Orthopedic Surgery - [place] [address] [facility] [address] [place] [phone] Coco Ansari PA [address] [place] [phone] 06/24/2025 8:30 AM EST Office Visit Orthopedic Surgery - [place] [address] [facility] [address] [place] [phone] Coco Ansari PA [address] [place] [phone] 07/28/2025 8:30 AM EDT Office Visit Gastroenterology - [address] [facility] 299 [facility] [address] [place] [phone] Aria Fernandez PA [address] [place] [phone] documented as of this encounter Visit Diagnoses Not on filedocumented in this encounter Care Teams Piano Case Maker Relationship Specialty Start Date End Date Mery Torre MD [address] [place] [address] PCP - General 05/30/22 02/25/25 documented as of this encounter
--- OUTSIDE RECORDS SUMMARY | 2025-02-22 11:50 | XMS_ITS | Encounter Summary ---
Author Organization [employer] Address [address] [place] [address] Care Team Providers Care Outside Salesman Name Role Phone Mery Torre MD Primary Care Provider [phone] Kerry Dunaway MD Primary Care Provider [phone] Encounter Details Date Type Department Care Team ([facility] Contact Info) Description 09/10/[address] [facility] MED & PEDS [address] [place] [address] Meg Cervantes LPN Social History Tobacco Use [...] Description 03/08/2025 10:15 AM EST Office Visit [facility] MED & PEDS [address] [place], [place] [phone] Kerry Dunaway MD [address] [place], [place] [phone] documented as of this encounter Visit Diagnoses Not on filedocumented in this encounter Care Teams Outside Salesman Relationship Specialty Start Date End Date Mery Torre MD [address] [place] [address] PCP - General Family Medicine 01/10/22 02/21/25 Kerry Dunaway MD [address] [place] [address] PCP - General Internal Medicine 02/22/25 documented as of this encounter
--- OUTSIDE RECORDS SUMMARY | 2025-02-22 11:50 | XMS_ITS | Encounter Summary ---
Author Organization [employer] Address [address] [facility] 7t [place] [address] Care Team Providers Care Nut Cracker Name Role Phone Mery Torre MD Primary Care Provider [phone] Kerry Dunaway MD Primary Care Provider [phone] Reason for Visit * Reason Comments Med Refill Encounter Details Date Type Department Care Team ([facility] st Contact Info) Description 11/14/2024 Refill [facility] MED & PEDS [address] [place] [address] Mery Torre MD [address] [place] [address] Social History Tobacco Use Types Packs/Day Years [...] Description 03/08/2025 10:15 AM EST Office Visit [facility] CHC MED & PEDS [address] [place] [address] Kerry Dunaway MD [address] [place] [address] documented as of this encounter Visit Diagnoses Not on filedocumented in this encounter Additional Health Concerns Assessment Noted Time PHQ-9 Depression Total Score: 7 03/05/20 23 11:02 AM EST documented as of this encounter Care Teams Nut Cracker Relationship Specialty Start Date End Date Mery Torre MD [address] [place] [address] PCP - General Family Medicine 01/10/22 02/21/25 Kerry Dunaway MD [address] [place] [address] PCP - General Internal Medicine 02/22/25 documented as of this encounter
--- OUTSIDE RECORDS SUMMARY | 2025-02-22 11:50 | XMS_ITS | Encounter Summary ---
Author Organization [employer] Address [address] [facility] 7t [place] [address] Care Team Providers Care Charging Machine Operator Name Role Phone Mery Torre MD Primary Care Provider [phone] Kerry Dunaway MD Primary Care Provider [phone] Encounter Details Date Type Department Care Team (Late st Contact Info) Description 01/14/2024 Orders Only [facility] MED & PEDS [address] [place] [address] Provider, MD Claudia Social History Tobacco Use [...] Description 03/08/2025 10:15 AM EST Office Visit [facility] MED & PEDS [address] [place], [place] [phone] Kerry Dunaway MD [address] [place], [place] [phone] documented as of this encounter Procedures Procedure [...] documented as of this encounter Care Teams Charging Machine Operator Relationship Specialty Start Date End Date Mery Torre MD [address] [place] [address] PCP - General Family Medicine 01/10/22 02/21/25 Kerry Dunaway MD [address] [place] [address] PCP - General Internal Medicine 02/22/25 documented as of this encounter
--- OUTSIDE RECORDS SUMMARY | 2025-02-22 11:50 | XMS_ITS | Encounter Summary ---
Author Organization [employer] Address [address] [facility] 7t [place] [address] Care Team Providers Care Margin Clerk Name Role Phone Mery Torre MD Primary Care Provider [phone] Kerry Dunaway MD Primary Care Provider [phone] Reason for Visit * Reason Comments Med Refill Encounter Details Date Type Department Care Team (Late st Contact Info) Description 03/08/2024 Refill [facility] MEDICINE [address] [place] [address] Mery Torre MD [address] [place], [place] [phone] Hypertension, unspecified type Social History Tobacco Use [...] Description 03/08/2025 10:15 AM EST Office Visit [facility] CH[facility] MED & PEDS [address] [place] [address] Kerry Dunaway MD [address] [place] [address] documented as of this encounter Visit Diagnoses Diagnosis Hypertension, unspecified type documented in this encounter Additional Health Concerns Assessment Noted Time PHQ-9 Depression Total Score: 7 03/05/20 23 11:02 AM EST documented as of this encounter Care Teams Margin Clerk Relationship Specialty Start Date End Date Mery Torre MD [address] [place] [address] PCP - General Family Medicine 01/10/22 02/21/25 Kerry Dunaway MD [address] [place] [address] PCP - General Internal Medicine 02/22/25 documented as of this encounter
--- OUTSIDE RECORDS SUMMARY | 2025-02-22 11:50 | XMS_ITS | Clinical Summary ---
Author Organization [employer] Address [address] [facility] 7[address] [place] [address] Care Team Providers Care Entry Engineer Name Role Phone Kerry Dunaway MD Primary Care Provider Allergies Active Allergy Reactions Criticality Noted Date [...] TWICE DAILY 180 tablet 11 4 Active thiamine (Vitamin B-1) [...] EVERY MORNING 90 tablet 1 5 Active cholecalciferol VITAMIN D (Vitamin D-3) 50 MCG (2000 UT) capsule TAKE 1 CAPSULE BY MOUTH EVERY DAY 90 capsule 3 5 Active losartan (Cozaar) 25 MG tablet Take 0.5 tablets (12.5 mg) by mouth Once per day. 30 tablet 11 5 Active aspirin 81 MG chewable tablet Chew 1 tablet (81 mg) Once per day. 90 tablet 3 5 Active Misc. Devices (Pulse Oximeter) misc Check oxygen BID 1 each 5 Active atorvastatin (Lipitor) 10 MG tabletIndicatio ns:Hypertension , unspecified type TAKE 1 TABLET(10 MG) BY MOUTH DAILY IN THE MORNING 90 tablet 3 5 Active atorvastatin (Lipitor) 10 MG tabletIndicatio ns:Hypertension , unspecified type Take 1 tablet (10 mg) by mouth Once per day. TAKE 1 TABLET(10 MG) BY MOUTH IN THE MORNING 90 tablet 3 4 025 Discontinued Active Problems Problem Noted Date Diagnosed Date History of CA (myocardial infarction) 10/03/2022 Neurogenic bladder 07/03/2022 Anxiety 07/03/2022 HTN (hypertension) 04/16/2022 Encounters Date Type Department Care Team Description 02/04/2025 Refill [facility] [address] [place] [address] Mery Torre MD Hypertension, unspecified type 02/02/2025 Orders Only [facility] [address] [place] [address] Claudia Thorne MD 12/28/2024 Orders Only [facility] 505 [place] [address] Claudia Thorne MD 12/21/2024 8:30 AM EDT Office Visit [facility] [address] [place] [address] Mery Torre MD Primary hypertension (Primary Dx); Neurogenic bladder; Anxiety; Sleep apnea, unspecified type 12/21/2024 Refill [facility] [address] [facility] [place] [address] Mery Torre MD 12/21/2024 Orders Only [facility] [address] [facility] [place] [address] Mery Torre MD 12/21/2024 Telephone [facility] [address] [facility] [place] [address] Mery Torre MD Change PCP 12/21/2024 Travel 12/16/2024 Telephone [facility] [address] [facility] [place] [address] Mery Torre MD Chart Prep 12/14/2024 Travel 12/10/2024 Patient Outreach [facility] [address] [place] [address] Mery Torre MD Pre-visit Planning (Pre visit planning unable to LVM ) from Last 3 Months Immunizations Immunization Administration [...] 12/21/2024 8:56 AM EDT Plan of Treatment Upcoming Encounters Date Type Department Care Team (Late st Contact Info) Description 03/08/2025 10:15 AM EST Office Visit [facility] [address] [place] [address] Kerry Dunaway MD [address] [place] [address] Health Maintenance Due Date Last Done Comments CT Colonography 1977 FIT DNA/Cologuard 1977 FIT 1975 FOBT 1975 HIV Screening 1975 Sigmoidoscopy 1977 Alcohol/Substance Use Screening 1989 Family Planning (PISQ) 1992 Hepatitis C Screening 1995 Hepatitis A Vaccines (1 of 2 - Risk 2-dose series) 1996 SDOH Screening 10/04/2023 10/03/2022 Depression Screening 03/05/2024 03/05/2023, 03/05/20 23 Tobacco Screening 03/05/2024 03/05/2023 COVID-19 Vaccine ( season) 2024 03/29/2022, 03/18/2021, 08/13/2020, Additional history exists Influenza Vaccine (#1) 2024 , 12/20/2022, 01/01/2022, Additional history exists Mammogram 05/12/2025 05/12/2024, 02/0 05/2023, 05/09/2023, Additional history exists Cervical Cancer Screening 09/11/2025 HPV/Cotest 09/11/2025 09/11/2020 Pap Smear 09/11/2025 09/11/2020 Disability Screening 12/14/2025 12/14/2024 DTaP/Tdap/Td Vaccines (3 - Td or Tdap) 10/03/2026 10/03/2016, 07/22/2006 Zoster Vaccines (1 of 2) 2027 Lipid Panel 12/21/2029 12/21/2024, 07/1 10/2023, 03/05/2023, Additional history exists Colonoscopy 02/13/2031 Colorectal Cancer [...] Priority Date/Time Associated Diagnosis Comments NM HEPATOBILIARY Routine 01/28/2025 9:17 AM EDT XR FINGERS 2+ VIEWS BILATERAL Routine 12/24/2024 10:09 AM EDT HEMOGLOBIN A1C Routine 12/21/2024 9:31 AM EDT COMPREHENSIVE METABOLIC PANEL, FASTING Routine 12/21/2024 9:31 AM EDT CBC WITH AUTO DIFFERENTIAL Routine 12/21/2024 9:31 AM EDT HEPATIC FUNCTION PANEL Routine 12/21/2024 9:31 AM EDT Primary hypertension LIPID PANEL, STANDARD Routine 12/21/2024 9:31 AM EDT Primary hypertension BASIC METABOLIC PANEL Routine 12/21/2024 9:31 AM EDT Primary hypertension BI MAMMOGRAM SCREENING TOMOSYNTHESIS BILATERAL Routine 05/12/2024 8:15 AM EST HM PAP/HPV Routine 09/11/2020 from Last 3 Months or Most Recently Relevant to Health Maintenance Results * NM Hepatobiliary (01/28/2025 9:17 AM EDT) Anatomical Region Laterality Modality Body Nuclear Medicine us Historical Provider MD BEAUCHAMP NM PROCEDURES Final R esult * XR Fingers 2+ Views Bilateral (12/24/2024 10:09 AM EDT) Anatomical Region Laterality Modality Upper Extremities, Fingers Bilateral Radio graphic Imaging us Historical Provider MD BEAUCHAMP XR PROCEDURES Final R esult * Comprehensive Metabolic Panel, Fasting (12/21/2024 9:31 AM EDT) Pathologist [facility] Sodium 140 135 - 145 mmol/L [facility] Potassium 4.3 3.3 - 5.1 mmol/L [facility] Chloride 108 96 - 108 mmol/L [facility] Carbon Dioxide 24 22 - 29 mmol/L [facility] Anion Gap 12 12 - 20 [facility] Urea Nitrogen (BUN) 11 9 - 16 mg/dL [facility] Creatinine, Serum 0.72 0.5 - 1.4 mg/dL [facility] Estimated Glomerular Filt Rate >60 [facility] Comment:Chronic Kidney Disea se: Estimated GFR < 60 mL/min/1.06i2Kohsub Kidney Disease: Estimated GFR < 15 mL/min/1.73m2 Glucose Fasting 95 60 - 99 mg/dL [facility] Calcium 9.0 8.4 - 10.2 mg/dL [facility] Bilirubin, Total 0.5 0.0 - 1.0 mg/dL [facility] Aspartate Amino Transferase 18 5 - 31 U/L [facility] Alanine Aminotransferase 9 0 - 31 U/L [facility] Total Protein 6.5 6.5 - 8.0 g/dL [facility] Albumin Level 4.4 3.5 - 5.0 g/dL [facility] Alkaline Phosphatase 46 39 - 117 U/L [facility] 12/21/2024 9:31 AM EDT 12/21/2024 1:58 PM EDT us Mery Torre MD LAB BLOOD ORDERABLES Final Resul t [facility] [address] [place] [phone] * CBC auto differential (12/21/2024 9:31 AM EDT) White Blood Count 5.3 4.8 - 10.8 X10*3/uL [facility] Red Blood Count 4.93 4.20 - 5.50 X10*6/uL [facility] Hemoglobin 13.4 12.0 - 16.0 g/dl [facility] Hematocrit 41.0 37.0 - 47.0 % [facility] Mean Corpuscular Volume 83.2 80.0 - 98.0 fL [facility] Mean Corpuscular Hemoglobin 27.2 27.0 - 33.0 pg [facility] Mean Corpuscular HGB Conc 32.7 31.0 - 35.0 g/dl [facility] Red Cell Distribution Width 14.2 11.0 - 16.0 % [facility] Platelet Count 254 160 - 400 X10*3/uL [facility] Mean Platelet Volume 12.2 9.4 - 12.3 fL [facility] Neutrophils Percent Auto 67.6 45 - 73 % [facility] Imm Gran Pct Auto 0.2 0.0 - 0.4 % [facility] Lymphocytes Percent Auto 24.1 20 - 40 % [facility] Monocytes Percent Auto 6.5 2 - 11 % [facility] Eosinophils Percent Auto 0.8 0 - 4 % [facility] Basophils Percent Auto 0.8 0 - 2 % [facility] NRBC Pct Auto 0.0 0.0 - 0.2 /100WBC [facility] Neutrophils Absolute Auto 3.6 2.0 - 8.3 x10*3/uL [facility] Imm Gran Abs Auto 0.01 0.00 - 0.03 X10*3/uL [facility] Lymphocytes Absolute Auto 1.3 1.2 - 4.9 X10*3/uL [facility] Monocytes Absolute Auto 0.3 0.1 - 1.2 X10*3/uL [facility] Eosinophils Absolute Auto 0.0 0.0 - 0.4 X10*3/uL [facility] Basophils Absolute Auto 0.0 0.0 - 0.2 X10*3/uL [facility] NRBC Abs Auto 0.000 0.0 - 0.012 X10*3/uL [facility] 12/21/2024 9:31 AM EDT 12/21/2024 1:58 PM EDT Mery Torre MD LAB BLOOD ORDERABLES Final Resul t Performing Organization Address [facility] de Phone Number [facility] [address] [place] [phone] * Hemoglobin A1c (12/21/2024 9:31 AM EDT) Hemoglobin A1c 5.5 <6.0 % [facility] Comment:Hemoglobin A1C Refer ence Range Adults: 4.8 - 6.0 % Non diabetic: < 6.0 % Goal: < 7.0 %Additional Action Suggested: > 8.0 %Note: Hemoglobin A1c results are invalid for patients with abnormal amounts of HbF. Blood transfusions may impact the HbA1c concentration in the patient sample. Estimated Average Glucose 111 mg/dL [facility] Comment:eAG = Estimated ave rage glucose which is %A1C expressed asaverage glucose, using the formula of the K6R-CslzbfhFhjcxhy Glucose study (ADAG), Diabetes Care, Vol.31,#8,2007 12/21/2024 9:31 AM EDT 12/21/2024 1:58 PM EDT Mery Torre MD LAB BLOOD ORDERABLES Final Resul t Performing Organization Address [facility] de Phone Number [facility] [address] [place] [phone] * Hepatic Function Panel (12/21/2024 9:31 AM EDT) Bilirubin, Total 0.5 0.0 - 1.0 mg/dL [facility] Bilirubin, Direct 0.2 0.0 - 0.5 mg/dL [facility] Aspartate Amino Transferase 18 5 - 31 U/L [facility] Alanine Aminotransferase 11 0 - 31 U/L [facility] Total Protein 6.8 6.5 - 8.0 g/dL [facility] Albumin Level 4.5 3.5 - 5.0 g/dL [facility] Alkaline Phosphatase 51 39 - 117 U/L [facility] Blood Venous blood specimen / Unknown 12/21/2024 9:31 AM EDT 12/21/2024 1:58 PM EDT Mery Torre MD LAB BLOOD ORDERABLES Final Resul t Performing Organization Address [facility] de Phone Number [facility] [address] [place] [phone] * (ABNORMAL) Lipid Panel, Standard (12/21/2024 9:31 AM EDT) Triglycerides 39 <150 mg/dL [facility] Comment:Desirable Triglyceri de: less than 150 mg/dLBorderline High Triglyceride 150-199 mg/dLHigh Triglyceride: 200-499 mg/dLVery High Triglyceride: greater than or equal to 5OO mg/dL Cholesterol 117 <200 mg/dL [facility] Comment:Desirable Cholestero l: less than 200 mg/dLBorderline High Cholesterol: 200-239 mg/dLHigh Cholesterol: greater than 239 mg/dL LDL Cholesterol Calculated 70 <100 mg/dL [facility] Comment:Desirable LDL: less than 100 mg/dLNear Optimal/Above Optimal LDL: 110- 129 mg/dLBorderline High LDL: 130-159 mg/dLHigh LDL: 160-189 mg/dLVery High LDL: greater than or equal to 190 mg/dL HDL Cholesterol 40(L) >40 mg/dL [facility] Comment:Desirable HDL: great er than 40 mg/dL Note: This HDL assay may give artificially low results in patients with liver disease. Blood Venous blood specimen / Unknown 12/21/2024 9:31 AM EDT 12/21/2024 1:58 PM EDT Mery Torre MD LAB BLOOD ORDERABLES Final Resul t Performing Organization Address [facility]/ZIP Co de Phone Number [facility] [address] [place] [phone] * Basic Metabolic Panel (12/21/2024 9:31 AM EDT) Sodium 140 135 - 145 mmol/L [facility] Potassium 4.1 3.3 - 5.1 mmol/L [facility] Chloride 107 96 - 108 mmol/L [facility] Carbon Dioxide 25 22 - 29 mmol/L [facility] Anion Gap 12 12 - 20 [facility] Urea Nitrogen (BUN) 12 9 - 16 mg/dL [facility] Creatinine, Serum 0.70 0.5 - 1.4 mg/dL [facility] Estimated Glomerular Filt Rate >60 [facility] Comment:Chronic Kidney Disea se: Estimated GFR < 60 mL/min/1.18s2Idtnoq Kidney Disease: Estimated GFR < 15 mL/min/1.73m2 Glucose 94 60 - 115 mg/dL [facility] Calcium 9.1 8.4 - 10.2 mg/dL [facility] Blood Venous blood specimen / Unknown 12/21/2024 9:31 AM EDT 12/21/2024 1:58 PM EDT Mery Torre MD LAB BLOOD ORDERABLES Final Resul t [facility] [address] [place] [phone] [phone] * BI Mammogram Screening Tomosynthesis Bilateral (05/12/2024 8:15 AM EST) Anatomical Region Laterality Modality Breast Bilateral Mammography 05/12/2024 8:15 AM EST Narrative 05/22/2024 1:30 PM EST [facility] [address] [place] [address] Mammography Report Signed Patient: Niya Haji MR#: [id number] : 1975 Acct:[id number] Age/Sex: 49 / F ADM Date: 05/12/24 Loc: [facility] Attending Dr: Mery Torre MD Ordering Physician: Mery Torre MD Results: 2Benign Findings Date of Service: 05/12/24 Follow Up: 1 Year From Orig inal Mammogram Procedure(s): MM tomosynthesis screening BI Accession Number(s): [id number] cc: Mery Torre MD EXAMINATION: MM SCREENING [...] by: Ashley Avila DO 05/22/2024 01:27 PM [facility] Dictated By: Ashley Avila DO Signed By: <Electronically signed by Ashley Avila DO in OV> 05/22/24 1327 DD/ 0815 TD/TT: 05/12/24 0836 Tuber Machine Cutter: Procedure Note Donotuseinterpreter, Image - 05/22/2024 [facility] [address] [place], [place] [address] Mammography Report Signed Patient: Dawood HajiR#: [id number] : 1975Acct:[id number] Age/Sex: 49 / FADM Date: 05/12/24 Loc: [facility] Attending Dr: Mery Torre MD Ordering Physician: Mery Torre MDResults: 2Benign Findings Date of Service: 05/12/24Follow Up: 1 Year From Orig inal Mammogram Procedure(s): MM tomosynthesis screening BI Accession Number(s): [id number] cc: Mery Torre MD EXAMINATION: MM SCREENING [...] by: Ashley Avila DO 05/22/2024 01:27 PM [facility] Dictated By: Ashley Avila DO Signed By: <Electronically signed by Ashley Avila DO in OV> 05/22/24 1327 DD/ 0815 TD/TT: 05/12/24 0836 Tuber Machine Cutter: Mery Torre MD [facility] PROCEDURES Edited Result - Final * HM PAP/HPV (09/11/2020) Pap Smear 1. NILM 1. NILM HPV Not Detected Undetected, Indeterminat e, Quantitative , Not Detected Historical Provider HEALTH MAINTENANCE Final Result from Last 3 Months or Most Recently Relevant to Health Maintenance Insurance [id number] CARE < 65 [place] [id number] Care Teams Entry Engineer Relationship Specialty Start Date End Date Kerry Dunaway MD [address] [place] [address] PCP - General Internal Medicine 02/22/25
--- OUTSIDE RECORDS SUMMARY | 2025-02-22 11:50 | XMS_ITS | Encounter Summary ---
Author Organization [employer] Address [address] [facility] 7t [place] [address] Care Team Providers Care Curtain Fitter Name Role Phone Mery Torre MD Primary Care Provider [phone] Kerry Dunaway MD Primary Care Provider [phone] Encounter Details Date Type Department Care Team (Late st Contact Info) Description 10/22/2023 Abstract [facility] [address] [place], [place] [phone] Mery Torre MD [address] [place] [address] Social History Tobacco Use Types Packs/Day Years [...] Upcoming Encounters Date Type Department Care Team ([facility] st Contact Info) Description 03/08/2025 10:15 AM EST Office Visit [facility] [address] [place] [address] Kerry Dunaway MD [address] [place] [address] documented as of this encounter Visit Diagnoses Not on filedocumented in this encounter Additional Health Concerns Assessment Noted Time PHQ-9 Depression Total Score: 7 03/05/20 23 11:02 AM EST documented as of this encounter Care Teams Curtain Fitter Relationship Specialty Start Date End Date Mery Torre MD [address] [place] [phone] PCP - General Family Medicine 01/10/22 02/21/25 Kerry Dunaway MD [address] [place] [address] PCP - General Internal Medicine 02/22/25 documented as of this encounter
--- OUTSIDE RECORDS SUMMARY | 2025-02-22 11:50 | XMS_ITS | Encounter Summary ---
Author Organization [employer] Address [address] [place] [address] Care Team Providers Care Food Chemist Name Role Phone Mery Torre MD Primary Care Provider [phone] Kerry Dunaway MD Primary Care Provider Encounter Details Date Type Department Care Team (Late st Contact Info) Description 04/12/2022 [facility] Information Management [address] [place] [address] Mery Torre MD [address] [place], [place] [phone] Social History Tobacco Use Types Packs/Day Years [...] Description 03/08/2025 10:15 AM EST Office Visit [facility] [address] [place], [place] [phone] Kerry Dunaway MD [address] [place], [place] [phone] documented as of this encounter Visit Diagnoses Not on filedocumented in this encounter Care Teams Food Chemist Relationship Specialty Start Date End Date Mery Torre MD [address] [place] [phone] PCP - General Family Medicine 01/10/22 02/21/25 Kerry Dunaway MD [address] [place] [phone] PCP - General Internal Medicine 02/22/25 documented as of this encounter
--- OUTSIDE RECORDS SUMMARY | 2025-02-22 11:50 | XMS_ITS | Encounter Summary ---
Author Organization [employer] Address [address] [facility] 7t [place] [address] Care Team Providers Care Transitional Care Liaison Name Role Phone Mery Torre MD Primary Care Provider [phone] Kerry Dunaway MD Primary Care Provider [phone] Encounter Details Date Type Department Care Team (Late st Contact Info) Description 02/02/2025 Orders Only [facility] [address] [place] [address] Provider, MD Claudia Social History Tobacco Use [...] 03/08/2025 10:15 AM EST Office Visit [facility] [address] [place] [address] Kerry Dunaway MD [address] [place] [address] documented as of this encounter Procedures Procedure Name Priority Date/Time Associated Diagnosis Comments NM HEPATOBILIARY Routine 01/28/2025 9:17 AM EDT documented in this encounter Results * NM Hepatobiliary (01/28/2025 9:17 AM EDT) Anatomical Region Laterality Modality Body Nuclear Medicine us Historical Provider MD QUYNH SHANKAR PROCEDURES Final R esult documented in this encounter Visit Diagnoses Not on filedocumented in this encounter Additional Health Concerns Assessment Noted Time PHQ-9 Depression Total Score: 7 03/05/20 23 11:02 AM EST documented as of this encounter Care Teams Transitional Care Liaison Relationship Specialty Start Date End Date Mery Torre MD [address] [place] [address] PCP - General Family Medicine 01/10/22 02/21/25 Kerry Dunaway MD [address] [place] [address] PCP - General Internal Medicine 02/22/25 documented as of this encounter
--- OUTSIDE RECORDS SUMMARY | 2025-02-22 11:51 | XMS_ITS | Encounter Summary ---
Author Organization [employer] Address [address] [facility] 7t [place] [address] Care Team Providers Care Building Wrecker Name Role Phone Mery Torre MD Primary Care Provider [phone] Kerry Dunaway MD Primary Care Provider [phone] Reason for Visit * Reason Comments Med Refill Encounter Details Date Type Department Care Team ([facility] st Contact Info) Description 04/07/2023 Refill [facility] [address] [place] [address] Mery Torre MD [address] [place] [address] Social History Tobacco Use Types Packs/Day Years [...] [facility] [address] [place] [address] Kerry Dunaway MD [address] [place] [address] documented as of this encounter Visit Diagnoses Not on filedocumented in this encounter Additional Health Concerns Assessment Noted Time PHQ-9 Depression Total Score: 7 03/05/20 23 11:02 AM EST documented as of this encounter Care Teams Building Wrecker Relationship Specialty Start Date End Date Mery Torre MD [address] [place] [phone] PCP - General Family Medicine 01/10/22 02/21/25 Kerry Dunaway MD [address] [place] [address] PCP - General Internal Medicine 02/22/25 documented as of this encounter
== END 2025-02-22 11:20 | disposition home or self-care (01) ==
LOC: HO.HWS 09:59
PROVIDERS: PCP Student in an Organized Health Care Education/Training Program; Visit Provider Advanced Practice Midwife
DX: Z01.419 Encounter for gynecological examination (general) (routine) without abnormal findings (principal)
CPT/HCPCS: 99396; 99459

== ENCOUNTER → 2025-02-22 09:58 | Outpatient (BNVA) | payer OTHER, SELFPAY | PROVIDERS: PCP Student in an Organized Health Care Education/Training Program; Visit Provider Advanced Practice Midwife | DX: Z01.419 Encounter for gynecological examination (general) (routine) without abnormal findings (principal) | CPT/HCPCS: 99396 ==

== ENCOUNTER 2025-03-08 11:07 | Outpatient (REF) | payer OTHER, SELFPAY ==
--- OUTSIDE RECORDS SUMMARY | 2025-03-08 10:15 | XMS_ITS | Encounter Summary ---
Author Organization [employer] Address [address] [facility] [address], [place] [address] Care Team Providers Care Radiographer Technologist Name Role Phone Kerry Dunaway MD Primary Care Provider Reason for Visit * Reason Comments transfer Encounter Details Date Type Department Care Team ([facility] Contact Info) Description 03/08/2025 10:15 AM EST Office Visit [facility] CHC MED & PEDS [address] [place] [address] Kerry Dunaway MD [address] [place] [address] Primary hypertension (Primary Dx); Fibromyalgia syndrome; Anxiety; Hypertension, unspecified type; Dietary counseling; Exercise counseling; Class 1 obesity due to excess calories with serious comorbidity and body mass index (BMI) of 33.0 to 33.9 in adult Social History Tobacco Use Types Packs/Day Years Used Date Smoking Tobacco: Former Cigarettes Smokeless Tobacco: Never Alcohol Use Standard Drinks/Week Comments Never 0 (1 standard drink = 0.6 oz pur e alcohol) Depression Answer Date Recorded Patient Health Questionnaire-9 Score 21 03/08/2025 Patient Health Questionnaire-9 Score 21 03/08/2025 Last PHQ-9: Questionnaire Data Not on file 1 05/08/2024 Housing Stability Answer Date Recorded What is your housing situation today? I have maryanne chiu 02/28/[address] you li ve. Do you have problems with any of the following? None of the above 02/28/2025 Food Insecurity Answer Date Recorded Within the past 12 months, y ou worried that your food would run out before you got money to buy more: Never True 02/28/2025 Within the past 12 months,th e food you bought just didn't last and you didn't have enough money to get more: Never True 06/2024 Transportation Answer Date Recorded In the past 12 months, has l ack of transportation kept you from medical appts, meetings, work or from getting things needed for daily living? No 02/28/2025 Utilities Answer Date Recorded In the past 12 months, has t he electric, gas, oil or water company threatened to shut off services in your home? No 02/28/2025 Depression Answer Date Recorded Patient Health Questionnaire-2 Score 6 03/08/2025 Internet Access Answer Date Recorded Internet Access Q1 Yes 02/28/2025 Internet Access Q2 Not on file 02/28/2025 Comments Unknown Sex and Gender Information Value Date Recorded Sex Assigned at Female 02/25/2022 10:32 AM EDT Legal Sex Female 10:32 AM EDT Gender Identity Female 02/25/2022 10:32 AM EDT Sexual Orientation Straight 08/14/2022 6: 50 AM EDT documented as of this encounter Last Filed Vital Signs Vital Sign Reading Time Taken Comments Blood Pressure 114/77 03/08/2025 10:18 AM EST Pulse 93 03/08/2025 10:18 AM EST Temperature 36.8 C (98.2 F) 03/08/2025 10:18 AM EST Respiratory Rate 20 03/08/2025 10:18 AM EST Oxygen Saturation 98% 03/08/2025 10:18 AM EST Inhaled Oxygen Concentration - - Weight 82.1 kg (181 lb) 03/08/2025 10:18 AM EST Height 157.5 cm (5' 2 ) 03/08/2025 10:18 AM EST Body Mass Index 33.11 03/08/2025 10:18 AM EST documented in this encounter Functional Status * Over the past 2 weeks, how often have you been bothered by any of the following problems? Question Answer Date of Assessment Author Patient Health Questionnaire-2 Score 6 02/26 10:25 AM EST Raegan De La Vega MA * Little interest or pleasure in doing things Answer Date of Assessment Author Nearly every day 03/08/2025 10:25 AM EST Raegan De La Vega MA * Feeling down, depressed, or hopeless Answer Date of Assessment Author Nearly every day 03/08/2025 10:25 AM Raegan Carballo MA * Trouble falling or staying asleep, or sleeping too much Answer Date of Assessment Author Nearly every day 03/08/2025 10:25 AM Raegan Carballo MA * Feeling tired or having little energy Answer Date of Assessment Author More than half the days 03/08/2025 10:25 AM Raegan Carballo MA * Poor appetite or overeating Answer Date of Assessment Author More than half the days 03/08/2025 10:25 AM Raegan Carballo MA * Feeling bad about yourself - or that you are a failure or have let yourself or your family down Answer Date of Assessment Author Nearly every day 03/08/2025 10:25 AM Raegan Carballo MA * Trouble concentrating on things, such as reading the newspaper or watching television Answer Date of Assessment Author Nearly every day 03/08/2025 10:25 AM Raegan Carballo MA * Moving or speaking so slowly that other people could have noticed? Or the opposite - being so fidgety or restless that you have been moving around a lot more than usual. Answer Date of Assessment Author More than half the days 03/08/2025 10:25 AM Raegan Carballo MA * Thoughts that you would be better off or hurting yourself in some way Answer Date of Assessment Author Not at all 03/08/2025 10:25 AM Karo Carballo MA * Patient Health Questionnaire-9 Score Answer Date of Assessment Author 21 03/08/2025 10:25 AM Karo Carballo MA * How difficult have these problems made it for you to do your work, take care of things at home, or get along with other people? Answer Date of Assessment Author Somewhat difficult 03/08/2025 10:25 AM Raegan Carballo MA documented as of this encounter Progress Notes * Kerry Dunaway MD - 03/08/2025 10:15 AM EST SUBJECTIVE Niya Haji is a 49 y.o. female who presents for transfer. Niya Haji, 49-year-old female - History of hypertension, previously taking losartan 12.5 mg, self-reduced dose due to episodes oflow blood pressure (systolic in 80s, diastolic in 50s), experienced fatigue and tiredness with higher dose - Noted blood pressure elevation during periods of grief following father's on January 15, 2025, with highest recorded at 127/118 mmHg; similar episodes occurred twice in October 2024 during anticipatory grief - Reports feeling better after reducing losartan dose; blood pressure sometimes found at 90/60 mmHg, with improvement in fatigue when dose lowered - History of TIA and previously elevated troponin levels - Concerned about weight; previously weighed 270 lbs, reduced to 179 lbs, currently stable at 181.8lbs, difficulty losing further weight despite healthy diet - Reports chronic sinusitis, recently completed antibiotics for acute exacerbation prior to 2024 - Received first dose of Twinrix vaccine on February 03, 2025, second dose delayed due to recent antibiotic use - Reports low HDL (40) on lipid panel in November 2024, currently taking atorvastatin - History of bladder device stimulator replacement, postponed bariatric surgery due to device issue - Reports long-term therapy for depression (10 years), denies suicidal ideation - Reports musculoskeletal issues, history of carpal tunnel surgery on both sides, possible need forrevision surgery and further orthopedic evaluation - Denies current symptoms of cough, nausea, vomiting - Reports occasional stomach discomfort, history of gastrointestinal issues Problem List[1] Allergies[2] Medications Ordered Prior to Encounter[3] Review of Systems Constitutional: Negative for activity change, appetite change, chills and diaphoresis. HENT: Negative for dental problem, drooling, ear discharge, ear pain and hearing loss. Eyes: Negative for pain, discharge and itching. Respiratory: Negative for cough, choking and chest tightness. Cardiovascular: Negative for chest pain and leg swelling. Gastrointestinal: Negative for blood in stool and diarrhea. Genitourinary: Negative for difficulty urinating, dyspareunia, dysuria, enuresis, flank pain, frequency and genital sores. Musculoskeletal: Negative for arthralgias, gait problem and joint swelling. Skin: Negative for pallor. Neurological: Negative for dizziness, seizures, speech difficulty, light- headedness and numbness. Psychiatric/Behavioral: Negative for behavioral problems, confusion and decreased concentration. OBJECTIVE Vitals: 03/08/25 1018 BP: 114/77 BP Location: Left arm Patient Position: Sitting BP Cuff Size: Adult long Pulse: 93 Resp: 20 Temp: 98.2 ??F (36.8 ??C) TempSrc: Oral SpO2: 98% Weight: 181 lb (82.1 kg) Height: 5' 2 (1.575 m) Physical Exam Constitutional: General: She is not in acute distress. Appearance: Normal appearance. She is obese. She is not ill-appearing, toxic- appearing or diaphoretic. Cardiovascular: Rate and Rhythm: Normal rate. Pulmonary: Effort: Pulmonary effort is normal. Abdominal: Palpations: Abdomen is soft. Neurological: General: No focal deficit present. Mental Status: She is alert. Psychiatric: Mood and Affect: Mood normal. Assessment/Plan Assessment/Plan Diagnoses and all orders for this visit: Primary hypertension Fibromyalgia syndrome Anxiety Hypertension, unspecified type - atorvastatin (Lipitor) 10 MG tablet; Take 1 tablet (10 mg) by mouth Once per day. - Hepatitis C Antibody with Reflex to HCV, RNA, Quantitative, Real-Time PCR; Future - HIV-1/2 Antigen and Antibodies, Fourth Generation, with Reflexes; Future Dietary counseling Exercise counseling Class 1 obesity due to excess calories with serious comorbidity and body mass index (BMI) of 33.0 to 33.9 in adult Dietary Recommendations: Fruits, vegetables, whole grains, protein foods, and fat-free or low-fat dairy products are healthychoices. Eat different types of protein foods in your diet. This can include seafood, lean meats, poultry, beans, peas, lentils, nuts, seeds, soy products, and eggs. Limit foods and beverages higher in added sugars, saturated fat, and sodium. Exercise Recommendations: At least 150 minutes of moderate-intensity physical activity per week, or an equivalent combinationof moderate- and vigorous-intensity activity Primary hypertension: - Blood pressure has been low on losartan 12.5 mg, with systolic readings in the 80s and diastolic in the 50s at times. Episodes of elevated blood pressure noted during periods of grief and stress, but currently blood pressure is stable. No dizziness reported when blood pressure is above 90/60. - Recommended discontinuation of losartan for 2 weeks and daily monitoring of blood pressure. If blood pressure rises above 140/90, advised to restart losartan 12.5 mg and notify provider. Advised tosend a message via patient portal if blood pressure increases. Anxiety: - Anxiety is currently controlled. No suicidal ideation. Continues therapy at [facility]. - No additional intervention required at this time. Dietary counseling: - Concern about inability to lose additional weight despite healthy eating habits. - Offered referral to senior cyber security analyst; patient declined for now and will reach out if needed. Exercise counseling: - Low HDL cholesterol noted. Exercise recommended to improve HDL. - Advised to start exercise program as tolerated, such as using a stationary bicycle for 5 minutes daily. Class 1 obesity due to excess calories with serious comorbidity and body mass index (BMI) of 33.0 to 33.9 in adult: - Weight reduced from 270 lbs to 181.8 lbs as of March 08, 2025, but currently unable to lose additional weight. - Encouraged continued healthy eating and exercise. No bariatric surgery planned at this time. This note was drafted using [employer] (AI) technology. The patient/patient's guardian has been informed and has consented to the use of this technology: Yes [1] Patient Active Problem List Diagnosis HTN (hypertension) Neurogenic bladder Anxiety History of MT (myocardial infarction) [2] Allergies Allergen Reactions Doxycycline Unknown Other reaction(s): Hives/Skin Rash, SEVERE ITCHING, pruritis Penicillins Rash and Swelling Other reaction(s): Hives/Skin Rash, ITCHING/SWELLING Sulfa Antibiotics Palpitations and Shortness of breath Famotidine Hives Oseltamivir Rosuvastatin Headache Tetracycline Unknown Trimethoprim Other reaction(s): Hives / Skin Rash [3] Current Outpatient Medications on File Prior to Visit Medication Sig Dispense Refill ARIPiprazole (Abilify) 15 MG tablet Take 7.5 mg by mouth in the morning. aspirin 81 MG chewable tablet Chew 1 tablet (81 mg) Once per day. 90 tablet 3 calcium carbonate 1500 (600 Ca) MG tablet TAKE 1 TABLET BY MOUTH TWICE DAILY 180 tablet 11 cetirizine (ZyrTEC) 10 MG tablet TAKE 1 TABLET BY MOUTH EVERY MORNING 90 tablet 1 cholecalciferol VITAMIN D (Vitamin D-3) 50 MCG (2000 UT) capsule TAKE 1 CAPSULE BY MOUTH EVERY DAY 90 capsule 3 clonazePAM (KlonoPIN) 1 MG tablet Take 1 mg by mouth if needed in the morning, at noon, and at bedtime. cyanocobalamin (Vitamin B-12) 500 MCG tablet TAKE 1 TABLET(500 MCG) BY MOUTH IN THE MORNING 90 tablet 3 FLUoxetine (PROzac) 20 MG tablet Take 2 tablets by mouth. folic acid (Folvite) 400 MCG tablet TAKE 1 TABLET BY MOUTH EVERY MORNING 30 tablet 11 losartan (Cozaar) 25 MG tablet Take 0.5 tablets (12.5 mg) by mouth Once per day. 30 tablet 11 Misc. Devices (Pulse Oximeter) misc Check oxygen BID 1 each 0 pantoprazole (ProtoNix) 40 MG EC tablet Take 40 mg by mouth before breakfast. Do not crush, chew, or split. thiamine (Vitamin B-1) 50 MG tablet TAKE 2 TABLETS BY MOUTH EVERY MORNING 60 tablet 11 [DISCONTINUED] atorvastatin (Lipitor) 10 MG tablet TAKE 1 TABLET(10 MG) BY MOUTH DAILY IN THE MORNING 90 tablet 3 No current facility-administered medications on file prior to visit. documented in this encounter Plan of Treatment Scheduled Orders Name Type Priority Associated Diagnoses Orde r Schedule Hepatitis C Antibody with Reflex to HCV, RNA, Quantitative, Real-Time PCR Lab Routine Hypertension, unspecified type Expected: 03/08/2025, Expires: 03/08/2026 HIV-1/2 Antigen and Antibodies, Fourth Generation, with Reflexes Lab Routine Hypertension, unspecified type Expected: 03/08/2025 (Approximate), Expires: 03/08/2026 documented as of this encounter Visit Diagnoses Diagnosis Primary hypertension- Primary Unspecified essential hypertension Fibromyalgia syndrome Unspecified myalgia and myositis Anxiety Anxiety state, unspecified Hypertension, unspecified type Dietary counseling Dietary surveillance and counseling Exercise counseling Class 1 obesity due to excess calories with serious comorbidity and body mass index (BMI) of 33.0 to 33.9 in adult documented in this encounter Additional Health Concerns Assessment Noted Time PHQ-9 Depression Total Score: 21 025 10:25 AM EST documented as of this encounter Care Teams Radiographer Technologist Relationship Specialty Start Date End Date Kerry Dunaway MD [address] [place] [id number] PCP - General Internal Medicine 02/22/25 documented as of this encounter
--- OUTSIDE RECORDS SUMMARY | 2025-03-08 13:18 | XMS_ITS | Encounter Summary ---
Author Organization [employer] Address [address] [facility] 7 [place] [address] Care Team Providers Care Material Handler Loader Name Role Phone Mery Torre MD Primary Care Provider [phone] Kerry Dunaway MD Primary Care Provider [phone] Reason for Visit * Reason Onset Date Comments Results 03/29/2022 Encounter Details Date Type Department Care Team (Late st Contact Info) Description 03/29/2022 Telephone [facility] CHC MED & PEDS [address] [place] [address] Mery Torre MD [address] [place] [address] Results Social History Tobacco Use Types Packs/Day [...] - 04/11/2022 3:38 PM EST Pt insurance [facility] denied pt for lido/prilocn 2.5 * Telephone Encounter - Piedad Strickland - 04/11/2022 10:57 AM EST TC from pt requesting Pulmonary function test results . Pt spoke with [facility] and they stated they had already faxed results in . Please contact [phone]. * Telephone Encounter - Raine Rojas - 04/05/2022 12:24 PM EST Tc from pt requesting a call regarding test results for sleep study, and pulmonary function test. * Telephone Encounter - Alexander Shepherd RN - 04/01/2022 11:47 AM EST TC placed, spoke to requesting PFT results that was done last Friday at [facility]. Pt was also requesting sleep apnea [...] on filedocumented in this encounter Care Teams Material Handler Loader Relationship Specialty Start Date End Date Mery Torre MD [address] [place] [id number] PCP - General Family Medicine 01/10/22 02/21/25 Kerry Dunaway MD [address] [place] [id number] PCP - General Internal Medicine 02/22/25 documented as of this encounter
--- OUTSIDE RECORDS SUMMARY | 2025-03-08 13:18 | XMS_ITS | Encounter Summary ---
Author Organization [employer] Address [address] [facility] [address] [place] [address] Care Team Providers Care Gang Supervisor Pipe Lines Name Role Phone Mery Torre MD Primary Care Provider [phone] Kerry Dunaway MD Primary Care Provider [phone] Encounter Details Date Type Department Care Team (Late st Contact Info) Description 12/28/2024 Orders Only [facility] CHC MED & PEDS [address] [place] [address] Provider, MD Claudia Social History Tobacco Use [...] Upper Extremities, Fingers Bilateral Radio graphic Imaging Historical Provider MD BE[facility]CHAMP XR PROCEDURES Final R esult documented in this encounter Visit Diagnoses Not on filedocumented in this encounter Additional Health Concerns Assessment Noted Time PHQ-9 Depression Total Score: 7 03/05/20 23 11:02 AM EST documented as of this encounter Care Teams Gang Supervisor Pipe Lines Relationship Specialty Start Date End Date Mery Torre MD [address] [place] [id number] PCP - General Family Medicine 01/10/22 02/21/25 Kerry Dunaway MD [address] [place] [address] PCP - General Internal Medicine 02/22/25 documented as of this encounter
--- OUTSIDE RECORDS SUMMARY | 2025-03-08 13:18 | XMS_ITS | Encounter Summary ---
Author Organization [email or web address] Address [address] [facility] [address] [place] [address] Care Team Providers Care Partition Notcher Name Role Phone Mery Torre MD Primary Care Provider [phone] Kerry Dunaway MD Primary Care Provider [phone] Reason for Visit * Reason Comments Med Refill Encounter Details Date Type Department Care Team ([facility] st Contact Info) Description 02/05/2024 Refill [facility] MED & PEDS [address] [place] [address] Mery Torre MD [address] [place] [address] Social History Tobacco Use Types Packs/Day Years [...] documented as of this encounter Care Teams Partition Notcher Relationship Specialty Start Date End Date Mery Torre MD [address] [place] [address] PCP - General Family Medicine 01/10/22 02/21/25 Kerry Dunaway MD [address] [place] [address] PCP - General Internal Medicine 02/22/25 documented as of this encounter
--- OUTSIDE RECORDS SUMMARY | 2025-03-08 13:18 | XMS_ITS | Encounter Summary ---
Author Organization [employer] Address [address] [facility] 7t [place] [address] Care Team Providers Care Optical Instrument Inspector Name Role Phone Mery Torre MD Primary Care Provider [phone] Kerry Dunaway MD Primary Care Provider [phone] Reason for Visit * Reason Comments Med Refill Encounter Details Date Type Department Care Team ([facility] st Contact Info) Description 11/14/2024 Refill [facility] MED & PEDS [address] [place] [address] Mery Torre MD [address] [place] [address] Social History Tobacco Use Types Packs/Day Years [...] documented as of this encounter Care Teams Optical Instrument Inspector Relationship Specialty Start Date End Date Mery Torre MD [address] [place] [address] PCP - General Family Medicine 01/10/22 02/21/25 Kerry Dunaway MD [address] [place] [address] PCP - General Internal Medicine 02/22/25 documented as of this encounter
--- OUTSIDE RECORDS SUMMARY | 2025-03-08 13:18 | XMS_ITS | Encounter Summary ---
Author Organization [employer] Address [address] [facility] 7t [place] [address] Care Team Providers Care [employer] Wireman Name Role Phone Kerry Dunaway MD Primary Care Provider [phone] Encounter Details Date Type Department Care Team ([facility] Contact Info) Description 03/08/2025 Telephone [facility] CHC MED & PEDS [address] [place], [place] [phone] Kerry Dunaway MD [address] [place], [place] [phone] Social History Tobacco Use Types Packs/Day Years [...] AM EDT documented as of this encounter Functional Status * Over the past 2 weeks, how often have you been bothered by any of the following problems? Question Answer Date of Assessment Author Patient Health Questionnaire-2 Score 6 02/26 10:25 AM Raegan Carballo MA * Little interest or pleasure in doing things Answer Date of Assessment Author Nearly every day 03/08/2025 10:25 AM Raegan Carballo MA * Feeling down, depressed, or hopeless [...] Questionnaire-9 Score Answer Date of Assessment Author 03/08/2025 10:25 AM Karo Carballo MA * How difficult have these problems made it for you to do your work, take care of things at home, or get along with other people? Answer Date of Assessment Author Somewhat difficult 03/08/2025 10:25 AM Raegan Carballo MA documented as of this encounter Miscellaneous Notes * Telephone Encounter - Oma Gilmore RN - 03/08/2025 11:23 AM EST Patient had appointment with Dr. Dunaway today and had forgotten to tell him something during the visit. TC to patient. She stated on 02/22, while at the [facility], before starting exam, she had a cramp in her inner thigh. It went away, but she states she can still feel something there. Its not painful. RN instructed patient on some home care instructions and if the sensation was still there next week, to call office. Patient agreed with plan. Routing to provider for FYI. documented in this encounter Plan of Treatment Not on file documented as of this encounter Visit Diagnoses Not on filedocumented in this encounter Additional Health Concerns Assessment Noted Time PHQ-9 Depression Total Score: 025 10:25 AM EST documented as of this encounter Care Teams [employer] Wireman Relationship Specialty Start Date End Date Kerry Dunaway MD [address] [place] [address] PCP - General Internal Medicine 02/22/25 documented as of this encounter
--- OUTSIDE RECORDS SUMMARY | 2025-03-08 13:18 | XMS_ITS | Encounter Summary ---
Author Organization [employer] Address [address] [facility] 7t [place] [address] Care Team Providers Care Linting Machine Operator Name Role Phone Kerry Dunaway MD Primary Care Provider [phone] Encounter Details Date Type Department Care Team (Latest Contact Info) Description 03/07/2025 Travel Social History Tobacco Use Types Packs/Day [...] housing situation today? I have maryanneessence chiu 02/28/[address] you [...] documented as of this encounter Care Teams Linting Machine Operator Relationship Specialty Start Date End Date Kerry Dunaway MD [address] [place] [address] PCP - General Internal Medicine 02/22/25 documented as of this encounter
--- OUTSIDE RECORDS SUMMARY | 2025-03-08 13:18 | XMS_ITS | Encounter Summary ---
Author Organization [employer] Address [address] [place] [address] [address], [place] [address] Care Team Providers Care Shroudman Name Role Phone Mery Torre MD Primary Care Provider [phone] Kerry Dunaway MD Primary Care Provider [phone] Encounter Details Date Type Department Care Team (Late st Contact Info) Description 04/16/2022 Orders Only [facility] MEDICINE [address] [place] [address] Mery Torre MD [address] [place], [place] [phone] Pain (Primary Dx) Social History Tobacco Use [...] pain documented in this encounter Care Teams Shroudman Relationship Specialty Start Date End Date Mery Torre MD [address] [place] [phone] PCP - General Family Medicine 01/10/22 02/21/25 Kerry Dunaway MD [address] [place] [id number] PCP - General Internal Medicine 02/22/25 documented as of this encounter
--- OUTSIDE RECORDS SUMMARY | 2025-03-08 13:18 | XMS_ITS | Encounter Summary ---
Author Organization [employer] Address 75 [facility] 7t [place] [address] Care Team Providers Care Sports Equipment Repairer Name Role Phone Kerry Dunaway MD Primary Care Provider [phone]- [phone] Encounter Details Date Type Department Care Team (Latest Contact Info) Description 03/08/2025 Travel Social History Tobacco Use Types Packs/Day [...] [place] documented as of this encounter Plan of Treatment Not on file documented as of this encounter Visit Diagnoses Not on filedocumented in this encounter Additional Health Concerns Assessment Noted Time PHQ-9 Depression Total Score: 025 10:25 AM EST documented as of this encounter Care Teams Sports Equipment Repairer Relationship Specialty Start Date End Date Kerry Dunaway MD [address] [place] [address] [place] [address] PCP - General Internal Medicine 02/22/25 documented as of this encounter
--- OUTSIDE RECORDS SUMMARY | 2025-03-08 13:18 | XMS_ITS | Encounter Summary ---
Author Organization [employer] Address 75 [facility] [address], [place] [address] Care Team Providers Care Shift Stacker Name Role Phone Kerry Dunaway MD Primary Care Provider Reason for Visit * Reason Onset Date Comments Chart Prep 03/07/2025 Encounter Details Date Type Department Care Team ([facility] st Contact Info) Description 03/07/2025 Telephone [facility] CHC MED & PEDS 505 [place] [address] Kerry Dunaway MD 505 [place] [address] Chart Prep Social History Tobacco Use Types [...] encounter Miscellaneous Notes * Telephone Encounter - Jolene Rojas [place] - 03/07/2025 11:45 AM EST Chart Prep Labs: done Images: not applicable Referrals: complete Vaccines due: Flu and Tdap Screenings: STI screening, LMP, and PISQ Overdue care gaps: SBIRT, PHQ-9, and Tobacco documented in this encounter Plan of Treatment Not on file documented as of this encounter Visit Diagnoses Not on filedocumented in this encounter Additional Health Concerns Assessment Noted Time PHQ-9 Depression Total Score: 7 03/05/20 23 11:02 AM EST documented as of this encounter Care Teams Shift Stacker Relationship Specialty Start Date End Date Kerry Dunaway MD [address] [place], [place] [address] [address] PCP - General Internal Medicine 02/22/25 documented as of this encounter
--- OUTSIDE RECORDS SUMMARY | 2025-03-08 13:18 | XMS_ITS | Encounter Summary ---
Author Organization [employer] Address 75 [facility] 7t [place] [address] Care Team Providers Care Concrete Buster Operator Name Role Phone Mery Torre MD Primary Care Provider [phone] Kerry Dunaway MD Primary Care Provider [phone]- [phone] Encounter Details Date Type Department Care Team (Late st Contact Info) Description 01/14/2024 Orders Only [facility] CHC MED & PEDS [address] [place] [address] Provider, MD Claudia Social History Tobacco Use [...] documented as of this encounter Care Teams Concrete Buster Operator Relationship Specialty Start Date End Date Mery Torre MD [address] [place] [address] PCP - General Family Medicine 01/10/22 02/21/25 Kerry Dunaway MD 505 [place] [address] PCP - General Internal Medicine 02/22/25 documented as of this encounter
--- OUTSIDE RECORDS SUMMARY | 2025-03-08 13:18 | XMS_ITS | Encounter Summary ---
Author Organization [employer] Address 75 [facility] 7t [place] [address] Care Team Providers Care Technical Support Professional Name Role Phone Mery Torre MD Primary Care Provider [phone] Kerry Dunaway MD Primary Care Provider [phone] Encounter Details Date Type Department Care Team (Late st Contact Info) Description 10/22/2023 Abstract [facility] CHC MED & PEDS [address] [place], [place] [phone] Mery Torre MD 505 [place] [address] Social History Tobacco Use Types Packs/Day Years [...] documented as of this encounter Care Teams Technical Support Professional Relationship Specialty Start Date End Date Mery Torre MD [address] [place] [address] PCP - General Family Medicine 01/10/22 02/21/25 Kerry Dunaway MD [address] [place] [address] PCP - General Internal Medicine 02/22/25 documented as of this encounter
--- OUTSIDE RECORDS SUMMARY | 2025-03-08 13:18 | XMS_ITS | Encounter Summary ---
Author Organization [employer] Address 75 [facility] 7 [place] [address] Care Team Providers Care Environmental Conservation Officer Name Role Phone Mery Torre MD Primary Care Provider [phone] Kerry Dunaway MD Primary Care Provider [phone] Encounter Details Date Type Department Care Team ([facility] st Contact Info) Description 07/16/2022 Orders Only [facility] CHC MED & PEDS 505 [place] [address] Mery Torre MD 505 [place] [address] Social History Tobacco Use Types Packs/Day Years [...] on filedocumented in this encounter Care Teams Environmental Conservation Officer Relationship Specialty Start Date End Date Mery Torre MD [address] [place] [address] PCP - General Family Medicine 01/10/22 02/21/25 Kerry Dunaway MD [address] [place] [address] PCP - General Internal Medicine 02/22/25 documented as of this encounter
--- OUTSIDE RECORDS SUMMARY | 2025-03-08 13:18 | XMS_ITS | Encounter Summary ---
Author Organization [facility] Address [address] [place] [address] Care Team Providers Care Consultative Sales Associate Name Role Phone Kerry Dunaway MD Primary Care Provider [phone] Encounter Details Date Type Department Care Team (Late Contact Info) Description 02/02/2025 Results Follow-Up Gastroenterology [facility] 175 [facility] 175 [facility] 200 [place] [address] Aria Fernandez PA 299 [facility] [address] [place] [address] Social History Tobacco Use Types Packs/Day Years [...] Department Care Team (Late Contact Info) Description 03/28/2025 8:00 AM EST Office Visit Orthopedic Surgery - [place] 175 [facility] 140 [place] [phone] Coco Ansari PA 174 [facility] 140 [place] [address] 06/24/2025 8:30 AM EST Office Visit Orthopedic Surgery - [place] [address] [place] [address] Coco Ansari PA 174 [facility] 140 [place] [address] 07/28/2025 8:30 AM EDT Office Visit Gastroenterology - 299 [facility] 299 [facility] 419 [place] [address] Aria Fernandez PA 299 [facility] 419 [place] [address] documented as of this encounter Visit Diagnoses Not on filedocumented in this encounter Care Teams Consultative Sales Associate Relationship Specialty Start Date End Date Kerry Dunaway MD [address] [place] [address] PCP - General Internal Medicine 02/26/25 documented as of this encounter
--- OUTSIDE RECORDS SUMMARY | 2025-03-08 13:18 | XMS_ITS | Encounter Summary ---
Author Organization [employer] Address 75 [facility] 7t [place] [address] Care Team Providers Care Senior Analyst Developer Name Role Phone Mery Torre MD Primary Care Provider [phone] Kerry Dunaway MD Primary Care Provider [phone] Encounter Details Date Type Department Care Team (Late st Contact Info) Description 02/02/2025 Orders Only [facility] CHC MED & PEDS [address] [place] [address] Provider, MD Claudia Social History Tobacco Use [...] MD BEAU[place]AMP NM PROCEDURES Final R esult documented in this encounter Visit Diagnoses Not on filedocumented in this encounter Additional Health Concerns Assessment Noted Time PHQ-9 Depression Total Score: 7 03/05/20 23 11:02 AM EST documented as of this encounter Care Teams Senior Analyst Developer Relationship Specialty Start Date End Date Mery Torre MD [address] [place] [address] PCP - General Family Medicine 01/10/22 02/21/25 Kerry Dunaway MD [address] [place] [address] PCP - General Internal Medicine 02/22/25 documented as of this encounter
--- OUTSIDE RECORDS SUMMARY | 2025-03-08 13:18 | XMS_ITS | Encounter Summary ---
Author Organization [employer] Address 75 [facility] 7[address] [place] [address] Care Team Providers Care School Director Name Role Phone Mery Torre MD Primary Care Provider [phone] Kerry Dunaway MD Primary Care Provider [phone] Encounter Details Date Type Department Care Team (Late st Contact Info) Description 09/10/2022 Orders Only [facility] CHC MED & PEDS 505 [place] [address] Meg Cervantes LPN Social History Tobacco Use [...] on filedocumented in this encounter Care Teams School Director Relationship Specialty Start Date End Date Mery Torre MD [address] [place] [address] PCP - General Family Medicine 01/10/22 02/21/25 Kerry Dunaway MD [address] [place] [address] PCP - General Internal Medicine 02/22/25 documented as of this encounter
--- OUTSIDE RECORDS SUMMARY | 2025-03-08 13:18 | XMS_ITS | Encounter Summary ---
Author Organization [employer] Address [address] [place] [address] Care Team Providers Care Freight Engineer Name Role Phone Mery Torre MD Primary Care Provider [phone] Kerry Dunaway MD Primary Care Provider Encounter Details Date Type Department Care Team (Late st Contact Info) Description 04/12/2022 [facility] [address] [place] [address] Mery Torre MD 505 [place], [place] [phone] Social History Tobacco Use Types Packs/Day Years [...] on filedocumented in this encounter Care Teams Freight Engineer Relationship Specialty Start Date End Date Mery Torre MD 230 [place] [address] PCP - General Family Medicine 01/10/22 02/21/25 Kerry Dunaway MD 505 [place], [place] [phone] PCP - General Internal Medicine 02/22/25 documented as of this encounter
--- OUTSIDE RECORDS SUMMARY | 2025-03-08 13:18 | XMS_ITS | Clinical Summary ---
Author Organization 175 [facility] Address 175 [place] [address] Phone Care Team Providers Care Rehabilitation Therapist Name Role Phone Kerry Dunaway MD Primary Care Provider [phone] Allergies Active Allergy Reactions Criticality Noted Date [...] a day. 180 each 2 05/13/2024 Active thiamine (VITAMIN B-1) 50 mg tablet Take 2 tablets (100 mg total) by mouth 1 (one) time each day in the morning. 06/22/2024 Active tretinoin (RETIN-A) 0.05 % cream APPLY A PEA SIZED AMOUNT TO FACE NIGHTLY 10/16/2024 Active trospium 60 mg capsule,extende d release 24hr TAKE 1 CAPSULE BY MOUTH DAILY ON EMPTY STOMACH AT LEAST 1 HOUR BEFORE A MEAL 12/20/2024 Active ketoconazole (NIZORAL) 2 % shampoo 12/10/2024 Active losartan (COZAAR) 25 mg tablet 12/21/2024 Active folic acid (FOLVITE) 400 mcg tablet Take 1 tablet (0.4 mg total) by mouth 1 (one) time each day in the morning. 01/13/2025 Active cholecalciferol (VITAMIN D-3) 50 mcg (2,000 unit) capsule Take 1 capsule (2,000 Units total) by mouth 1 (one) time each day. 12/21/2024 Active aspirin 81 mg chewable tablet CHEW AND SWALLOW 1 TABLET BY MOUTH EVERY MORNING 11/12/2024 Active atorvastatin (LIPITOR) 10 mg tablet 11/07/2024 Active ARIPiprazole (ABILIFY) 15 mg tablet Take 7.5 mg by mouth 1 (one) time each day. 12/28/2024 Active clonazePAM (KlonoPIN) 1 mg tablet Take 1 tablet (1 mg total) by mouth 3 (three) times a day if needed. for anxiety 01/22/2025 Active cyanocobalamin (VITAMIN B-12) 500 mcg tablet 10/26/2024 Acti ve FLUoxetine (PROzac) 10 mg capsule Take 1 capsule (10 mg total) by mouth 1 (one) time each day. 03/19/2024 Active pantoprazole (PROTONIX) 40 mg EC tablet Take 1 tablet (40 mg total) by mouth 2 (two) times a day before meals. 180 tablet 3 01/26/2025 Active Encounters Date Type Department Care Team Description 02/02/2025 Results Follow-Up Gastroenterology - [place] 175 [facility] 175 [facility] 200 [place] [address] Aria Fernandez PA 01/28/2025 7:54 AM EDT - 01/28/2025 11:59 PM EDT Hospital Encounter [facility] Nuclear Medicine [address] [place] [address] Gastroesophageal reflux disease with esophagitis without hemorrhage; NAFLD (nonalcoholic fatty liver disease) Discharge Disposition: Home or Self Care 01/26/2025 8:30 AM EDT Office Visit Gastroenterology - [place] 175 [facility] [address] [facility] [address] [place] [phone] Aria Fernandez PA Gastroesophageal reflux disease with esophagitis without hemorrhage (Primary Dx); NAFLD (nonalcoholic fatty liver disease); RUQ abdominal pain 12/24/2024 11:00 AM EDT Office Visit Orthopedic Surgery - [place] 175 [facility] [address] [place] [phone] Coco Ansari PA Bilateral thumb pain (Primary [...] AM EST Office Visit Orthopedic Surgery - [address] [place] [phone] Coco Ansari PA [address] [place] [phone] 06/24/2025 8:30 AM EST Office Visit Orthopedic Surgery - [place] [address] [place] [phone] Coco Ansari PA [address] [place] [phone] 07/28/2025 8:30 AM EDT Office Visit Gastroenterology - 299 [facility] 299 [facility] 419 [place] [phone] Aria Fernandez PA [address] [facility] [address] [facility] [address] [place] [address] Health Maintenance Due Date Last Done Comments [...] 12/24/2024 11:24 AM EDT Bilateral thumb pain MD ARTHROCENTESIS/ASPIRA TION/INJECTION SMALL JOINT/BURSA WO U/S GUIDANCE [...] 2. Normal gallbladder ejection fraction. Telerad CECELIA ([id number]) -------- FINAL REPORT -------- Dictated By: Aletha Chung Dictated Date: 02/01/2025 17:14 ET Assigned Physician: Aletha Chung Reviewed and Electronically Signed By: Aletha Chung Signed Date: 02/01/2025 17:14 ET Workstation ID: [id number] Transcribed By: Self Edit Transcribed Date: 02/01/2025 [...] obstruction. 2. Normal gallbladder ejection fraction. Teler[facility] PA ([id number]) -------- FINAL REPORT -------- Dictated By: Aletha Chung Dictated Date: 02/01/2025 17:14 ET Assigned Physician: Aletha Chung Reviewed and Electronically Signed By: Aletha Chung Signed Date: 02/01/2025 17:14 ET Workstation ID: [id number] Transcribed By: Self Edit Transcribed Date: 02/01/2025 17:14 ET Arai RAI IMG NM PROCEDURES Final Resul t * Hepatitis panel, acute with reflex to confirmation (01/26/2025 1:07 PM EDT) Hepatitis B Surface Ag Negative Negative LAB CHEMISTRY METHOD 01/26/2025 7:19 PM EDT [facility] Hepatitis A Antibody IgM Negative Negative LAB CHEMISTRY METHOD 01/26/2025 7:19 PM EDT [facility] Hep B Core IgM Negative Negative LAB CHEMISTRY METHOD 01/26/2025 7:19 PM EDT [facility] Hepatitis C Antibody Negative Negative LAB CHEMISTRY METHOD 01/26/2025 7:19 PM EDT [facility] Blood Venous blood specimen / Unknown Venipuncture / Unknown 01/26/2025 1:07 PM EDT 01/26/2025 1:07 PM EDT Aria RAI LAB BLOOD ORDERABLES Final Re sult [facility] [address] [place] [address], * XR Fingers 2+ Views bilat (12/24/2024 [...] IMG XR PROCEDURES Final Resul t * MD ARTHROCENTESIS/ASPIRATION/INJECTION SMALL JOINT/BURSA WO U/S GUIDANCE (12/24/2024 [...] Final Result from Last 3 Months Insurance [facility] Member Subscriber Plan / Payer (Ef fective 2019-Present) Name:JOSEPH HAGAN Relation to Subscriber:Self Name:Joseph Hagan Payer ID:[id number] Group ID:[id number] Type:Not on file Address: [address] [place] [address] Care Teams Rehabilitation Therapist Relationship Specialty Start Date End Date Kerry Dunaway MD [address] [place] [address] PCP - General Internal Medicine 02/26/25
--- OUTSIDE RECORDS SUMMARY | 2025-03-08 13:19 | XMS_ITS | Encounter Summary ---
Author Organization [employer] Address 75 [facility] 7[address] [place] [address] Care Team Providers Care Tree Tapping Laborer Name Role Phone Mery Torre MD Primary Care Provider [phone] Kerry Dunaway MD Primary Care Provider [phone]- [phone] Reason for Visit * Reason Comments Med Refill Encounter Details Date Type Department Care Team (Late st Contact Info) Description 03/08/2024 Refill [facility] MEDICINE [address] [place] [address] Mery Torre MD [address] [place], [place] [phone] Hypertension, unspecified type Social History Tobacco Use [...] documented as of this encounter Care Teams Tree Tapping Laborer Relationship Specialty Start Date End Date Mery Torre MD 230 [place] [address] PCP - General Family Medicine 01/10/22 02/21/25 Kerry Dunaway MD 505 [place] [address] PCP - General Internal Medicine 02/22/25 documented as of this encounter
--- OUTSIDE RECORDS SUMMARY | 2025-03-08 13:19 | XMS_ITS | Encounter Summary ---
Author Organization [employer] Address 75 [facility] 7t [place] [address] Care Team Providers Care Preparation Room Manager Name Role Phone Mery Torre MD Primary Care Provider [phone] Kerry Dunaway MD Primary Care Provider [phone] Reason for Visit * Reason Comments Med Refill Encounter Details Date Type Department Care Team ([facility] st Contact Info) Description 04/07/2023 Refill [facility] MED & PEDS 505 [place] [address] Mery Torre MD 505 [place] [address] Social History Tobacco Use Types Packs/Day Years [...] documented as of this encounter Care Teams Preparation Room Manager Relationship Specialty Start Date End Date Mery Torre MD 230 [place] [address] PCP - General Family Medicine 01/10/22 02/21/25 Kerry Dunaway MD 505 [place] [address] PCP - General Internal Medicine 02/22/25 documented as of this encounter
--- OUTSIDE RECORDS SUMMARY | 2025-03-08 13:19 | XMS_ITS | Clinical Summary ---
Author Organization [facility] [employer] Address [address] [place] [address] Care Team Providers Care Enamel Machine Operator Name Role Phone Kerry Dunaway [...] Do not crush, chew, or split. Active thiamine (Vitamin B-1) 50 MG tablet [...] day. 90 tablet 3 12/22/19 25 Active Misc. Devices (Pulse Oximeter) misc Check oxygen BID 1 each 12/23/19 25 Active atorvastatin (Lipitor) 10 MG tabletIndicatio ns:Hypertension , unspecified type Take 1 tablet (10 mg) by mouth Once per day. 90 tablet 3 03/08/20 25 Active calcium carbonate 1500 (600 Ca) MG tablet TAKE 1 TABLET BY MOUTH TWICE DAILY 180 tablet 11 12/01/19 24 025 Discontinued(Th erapy completed) atorvastatin (Lipitor) 10 MG tabletIndicatio ns:Hypertension , unspecified type Take 1 tablet (10 mg) by mouth Once per day. TAKE 1 TABLET(10 MG) BY MOUTH IN THE MORNING 90 tablet 3 03/09/20 24 025 Discontinued atorvastatin (Lipitor) 10 MG tabletIndicatio ns:Hypertension , unspecified type TAKE 1 TABLET(10 MG) BY MOUTH DAILY IN THE MORNING 90 tablet 3 02/08/20 25 025 Discontinued(Re order (will not trigger notification to Pharmacy)) Active Problems Problem Noted Date Diagnosed Date History of LA (myocardial infarction) 10/03/2022 Neurogenic bladder 07/03/2022 Anxiety 07/03/2022 HTN (hypertension) 04/16/2022 Encounters Date Type Department Care Team Description 03/08/2025 10:15 AM EST Office Visit [facility] [address] [place] [address] Kerry Dunaway MD Primary hypertension (Primary Dx); Fibromyalgia syndrome; Anxiety; Hypertension, unspecified type; Dietary counseling; Exercise counseling; Class 1 obesity due to excess calories with serious comorbidity and body mass index (BMI) of 33.0 to 33.9 in adult 03/08/2025 Telephone [facility] [address] [place] [address] Kerry Dunaway MD 03/08/2025 Travel 03/07/2025 Travel 03/07/2025 Telephone [facility] [address] [place] [address] Kerry Dunaway MD Chart Prep 02/28/2025 Patient Outreach [facility] [address] [place] [address] Kerry Dunaway MD Pre-visit Planning (SDOH screening negative and Tobacco screening negative) 02/04/2025 Refill [facility] [address] [place] [address] Mery Torre MD Hypertension, unspecified type 02/02/2025 Orders Only [facility] [address] [place] [address] Claudia Thorne MD 12/28/2024 Orders Only [facility] [address] [place] [address] Claudia Thorne MD 12/21/2024 8:30 AM EDT Office Visit [facility] [address] [place] [address] Mery Torre MD Primary hypertension (Primary Dx); Neurogenic bladder; Anxiety; Sleep apnea, unspecified type 12/21/2024 Refill [facility] [address] [place] [address] Mery Torre MD 12/21/2024 Orders Only [facility] [address] [place] [address] Mery Torre MD 12/21/2024 Telephone [facility] [address] [place] [address] Mery Torre MD Change PCP 12/21/2024 Travel 12/16/2024 Telephone [facility] [address] [place] [address] Mery Torre MD Chart Prep 12/14/2024 Travel 12/10/2024 Patient Outreach [facility] [address] [place] [address] Mery Torre MD Pre-visit Planning (Pre visit planning unable to LVM ) from Last 3 Months Immunizations Immunization Administration Dates Next Due Hep B, adult 02/04/2007,09/04/2006,08/05/2006 Influenza Injectable Quadriv alant Preservative Free IIV4 MDCK 12/20/2022,01/06/2020 Influenza injectable quadriv alent IIV4 with preservative 03/23/2019 Influenza injectable quadriv alent preservative free 01/01/2022,01/05/2021,12/31/2017,2016 Influenza, IIV3, injectable 12/31/2017,1 04/30/2012,01/30/2008,2006 Influenza, seasonal, injecta ble, preservative free 02/21/2024,03/05/2016 Tdap 10/03/2016,07/22/2006 Social History Tobacco Use Types [...] Mass Index 33.11 03/08/2025 10:18 AM EST Plan of Treatment Health Maintenance Due Date Last Done Comments CT Colonography 1977 FIT DNA/Cologuard 1977 FIT 1975 FOBT 1975 HIV Screening 1975 Sigmoidoscopy 1975 Family Planning (PISQ) 1992 Hepatitis C Screening 1995 COVID-19 Vaccine ( season) 2024 03/29/2022, 03/18/2021, 08/13/2020, Additional history exists Hepatitis A Vaccines (2 of 3 - Hep A Twinrix risk 3-dose series) 03/03/2025 02/03/2025 Mammogram 05/12/2025 05/12/2024, 02/0 05/2023, 05/09/2023, Additional history exists Depression Monitoring 09/05/2025 03/08/2025, 025 Cervical Cancer Screening 09/11/2025 HPV/Cotest 09/11/2025 09/11/2020 Pap Smear 09/11/2025 09/11/2020 Disability Screening 12/14/2025 12/14/2024 SDOH Screening 02/28/2026 02/28/2025 Alcohol/Substance Use Screening 03/08/2026 03/08/2025 Tobacco Screening 03/08/2026 03/08/2025 DTaP/Tdap/Td Vaccines (3 - Td or Tdap) 10/03/2026 10/03/2016, 07/22/2006 Zoster Vaccines (1 of 2) 2027 Lipid Panel 12/21/2029 12/21/2024, 10/26, 03/05/2023, Additional history exists Colonoscopy 02/13/2031 Colorectal Cancer Screening 02/13/2031 RSV Patients and Patients Aged 60 years or older (1 - 1-dose 75+ series) 2052 Influenza Vaccine Completed 01/13/2025, , 12/20/2022, Additional history exists Hepatitis B Vaccines Completed 02/03/2025, 02/04/2007, 09/04/2006, Additional history exists HIB Vaccines Aged Out No longer eligi [...] Body Nuclear Medicine us Historical Provider MD EBAUCHAMP NM PROCEDURES Final R esult * XR Fingers 2+ Views Bilateral (12/24/2024 10:09 AM EDT) Anatomical Region Laterality Modality Upper Extremities, Fingers Bilateral Radio graphic Imaging us Historical Provider MD BEAUCHAMP XR PROCEDURES Final R esult * Comprehensive Metabolic Panel, Fasting (12/21/2024 9:31 AM EDT) Sodium 140 135 - 145 mmol/L [facility] Potassium 4.3 3.3 - 5.1 mmol/L [facility] Chloride 108 96 - 108 mmol/L [facility] Carbon Dioxide 24 22 - 29 mmol/L [facility] Anion Gap 12 12 - 20 [facility] Urea Nitrogen (BUN) 11 9 - 16 mg/dL [facility] Creatinine, Serum 0.72 0.5 - 1.4 mg/dL [facility] Estimated Glomerular Filt Rate >60 [facility] Comment:Chronic Kidney Disea se: Estimated GFR < 60 mL/min/[id number] Kidney Disease: Estimated GFR < 15 mL/min/1.73m2 Glucose Fasting 95 60 - 99 mg/dL [facility] Calcium 9.0 8.4 - 10.2 mg/dL [facility] Bilirubin, Total 0.5 0.0 - 1.0 mg/dL [facility] Aspartate Amino Transferase 18 5 - 31 U/L [facility] Alanine Aminotransferase 9 0 - 31 U/L [facility] Total Protein 6.5 6.5 - 8.0 g/dL [facility] Albumin Level 4.4 3.5 - 5.0 g/dL [facility] Alkaline Phosphatase 46 39 - 117 U/L [facility] 12/21/2024 9:31 AM EDT 12/21/2024 1:58 PM EDT us Mery Torre MD LAB BLOOD ORDERABLES Final Resul t [facility] [address] [place] [phone] * CBC auto differential (12/21/2024 9:31 AM EDT) White Blood Count 5.3 4.8 - 10.8 X10*3/uL [facility] Red Blood Count 4.93 4.20 - 5.50 X10*6/uL [facility] Hemoglobin 13.4 12.0 - 16.0 g/dl [facility] Hematocrit 41.0 37.0 - 47.0 % [facility] Mean Corpuscular Volume 83.2 80.0 - 98.0 fL [facility] Mean Corpuscular Hemoglobin 27.2 27.0 - 33.0 pg [facility] Mean Corpuscular HGB Conc 32.7 31.0 - 35.0 g/dl [facility] Red Cell Distribution Width 14.2 11.0 - 16.0 % [facility] Platelet Count 254 160 - 400 X10*3/uL [facility] Mean Platelet Volume 12.2 9.4 - 12.3 fL [facility] Neutrophils Percent Auto 67.6 45 - 73 % [facility] Imm Gran Pct Auto 0.2 0.0 - 0.4 % [facility] Lymphocytes Percent Auto 24.1 20 - 40 % [facility] Monocytes Percent Auto 6.5 2 - 11 % [facility] Eosinophils Percent Auto 0.8 0 - 4 % [facility] Basophils Percent Auto 0.8 0 - 2 % [facility] NRBC Pct Auto 0.0 0.0 - 0.2 /100WBC [facility] Neutrophils Absolute Auto 3.6 2.0 - 8.3 x10*3/uL [facility] Imm Gran Abs Auto 0.01 0.00 - 0.03 X10*3/uL [facility] Lymphocytes Absolute Auto 1.3 1.2 - 4.9 X10*3/uL [facility] Monocytes Absolute Auto 0.3 0.1 - 1.2 X10*3/uL [facility] Eosinophils Absolute Auto 0.0 0.0 - 0.4 X10*3/uL [facility] Basophils Absolute Auto 0.0 0.0 - 0.2 X10*3/uL [facility] NRBC Abs Auto 0.000 0.0 - 0.012 X10*3/uL [facility] 12/21/2024 9:31 AM EDT 12/21/2024 1:58 PM EDT us Mery Torre MD LAB BLOOD ORDERABLES Final Resul t [facility] [address] [place] [phone] * Hemoglobin A1c (12/21/2024 9:31 AM EDT) Hemoglobin A1c 5.5 <6.0 % [facility] Comment:Hemoglobin A1C Refer ence Range Adults: 4.8 - 6.0 % Non diabetic: < 6.0 % Goal: < 7.0 %Additional Action Suggested: > 8.0 %Note: Hemoglobin A1c results are invalid for patients with abnormal amounts of HbF. Blood transfusions may impact the HbA1c concentration in the patient sample. Estimated Average Glucose 111 mg/dL [facility] Comment:eAG = Estimated ave rage glucose which is %A1C expressed asaverage glucose, using the formula of the [id number] Glucose study (ADAG), Diabetes Care, Vol.31,#8,2007 12/21/2024 9:31 AM EDT 12/21/2024 1:58 PM EDT Mery Torre MD LAB BLOOD ORDERABLES Final Resul t Performing Organization Address [facility] Co de Phone Number [facility] [address] [place] [phone] * Hepatic Function Panel (12/21/2024 9:31 AM EDT) Bilirubin, Total 0.5 0.0 - 1.0 mg/dL [facility] Bilirubin, Direct 0.2 0.0 - 0.5 mg/dL [facility] Aspartate Amino Transferase 18 5 - 31 U/L [facility] Alanine Aminotransferase 11 0 - 31 U/L [facility] Total Protein 6.8 6.5 - 8.0 g/dL [facility] Albumin Level 4.5 3.5 - 5.0 g/dL [facility] Alkaline Phosphatase 51 39 - 117 U/L [facility] Blood Venous blood specimen / Unknown 12/21/2024 9:31 AM EDT 12/21/2024 1:58 PM EDT Mery Torre MD LAB BLOOD ORDERABLES Final Resul t Performing Organization Address [facility] Co de Phone Number [facility] [address] [place] [phone] * (ABNORMAL) Lipid Panel, Standard (12/21/2024 9:31 AM EDT) Triglycerides 39 <150 mg/dL [facility] Comment:Desirable Triglyceri de: less than 150 mg/dLBorderline High Triglyceride 150-199 mg/dLHigh Triglyceride: 200-499 mg/dLVery High Triglyceride: greater than or equal to 5OO mg/dL Cholesterol 117 <200 mg/dL [facility] Comment:Desirable Cholestero l: less than 200 mg/dLBorderline High Cholesterol: 200-239 mg/dLHigh Cholesterol: greater than 239 mg/dL LDL Cholesterol Calculated 70 <100 mg/dL [facility] Comment:Desirable LDL: less than 100 mg/dLNear Optimal/Above Optimal LDL: 110- 129 mg/dLBorderline High LDL: 130-159 mg/dLHigh LDL: 160-189 mg/dLVery High LDL: greater than or equal to 190 mg/dL HDL Cholesterol 40(L) >40 mg/dL [facility] Comment:Desirable HDL: great er than 40 mg/dL Note: This HDL assay may give artificially low results in patients with liver disease. Blood Venous blood specimen / Unknown 12/21/2024 9:31 AM EDT 12/21/2024 1:58 PM EDT us Mery Torre MD LAB BLOOD ORDERABLES Final Resul t [facility] [address] [place] [phone] * Basic Metabolic Panel (12/21/2024 9:31 AM EDT) Sodium 140 135 - 145 mmol/L [facility] Potassium 4.1 3.3 - 5.1 mmol/L [facility] Chloride 107 96 - 108 mmol/L [facility] Carbon Dioxide 25 22 - 29 mmol/L [facility] Anion Gap 12 12 - 20 [facility] Urea Nitrogen (BUN) 12 9 - 16 mg/dL [facility] Creatinine, Serum 0.70 0.5 - 1.4 mg/dL [facility] Estimated Glomerular Filt Rate >60 [facility] Comment:Chronic Kidney Disea se: Estimated GFR < 60 mL/min/1.59o3Pdxvhp Kidney Disease: Estimated GFR < 15 mL/min/1.73m2 Glucose 94 60 - 115 mg/dL [facility] Calcium 9.1 8.4 - 10.2 mg/dL [facility] Blood Venous blood specimen / Unknown 12/21/2024 9:31 AM EDT 12/21/2024 1:58 PM EDT Mery Torre MD LAB BLOOD ORDERABLES Final Resul t [facility] [address] [place] [phone] * BI Mammogram Screening Tomosynthesis Bilateral (05/12/2024 8:15 AM EST) Anatomical Region Laterality Modality Breast Bilateral Mammography 05/12/2024 8:15 AM EST Narrative 05/22/2024 1:30 PM EST [address] [place] [address] Mammography Report Signed Patient: Niya Haji MR#: [id number] : 1975 Acct:[id number] Age/Sex: 49 / F ADM Date: 05/12/24 Loc: HO.MAMMO Attending Dr: Mery Torre MD Ordering Physician: Mery Torre MD Results: 2Benign Findings Date of Service: 05/12/24 Follow Up: 1 Year From [facility] Mammogram Procedure(s): MM tomosynthesis screening BI Accession Number(s): [id number] cc: Mery Torre MD EXAMINATION: MM SCREENING [...] by: Ashley Avila DO 05/22/2024 01:27 PM [facility] Dictated By: Ashley Avila DO Signed By: <Electronically signed by Ashley Avila DO in OV> 05/22/24 1327 DD/ 0815 TD/TT: 05/12/24 0836 Medical Unit Secretary: Procedure Note Donotuseinterpreter, Image - 05/22/2024 Jessica [facility] [address] [place] [address] Mammography Report Signed Patient: Mahsa Haji#: [id number] : 1975Acct:[id number] Age/Sex: 49 / FADM Date: 05/12/24 Loc: HO.MAMMO Attending Dr: Mery Torre MD Ordering Physician: Mery Torre MDResults: 2Benign Findings Date of Service: 05/12/24Follow Up: 1 Year From Orig ina Mammogram Procedure(s): MM tomosynthesis screening BI Accession Number(s): [id number] cc: Mery Torre MD EXAMINATION: MM SCREENING [...] Avila DO in OV> 05/22/24 1327 DD/ TD/TT: 05/12/24 0836 Medical Unit Secretary: Mery Torre MD IM BI PROCEDURES Edited Result - Final * PAP/HPV (09/11/2020) Pap Smear 1. NILM 1. NILM HPV Not Detected Undetected, Indeterminat e, Quantitative , Not Detected Historical Provider HEALTH MAINTENANCE Final Result from Last 3 Months or Most Recently Relevant to Health Maintenance Insurance [facility] < 65 [place] [id number] Care Teams Enamel Machine Operator Relationship Specialty Start Date End Date Kerry Dunaway MD [address] [place] [phone] PCP - General Internal Medicine 02/22/25
[2025-03-09 04:18] LABS: HIV Num 1 0.08 S/CO (0.00-0.99); ~HepC Num1 0.07 S/CO (0.00-0.79); ~Hepatitis C Antibody Nonreactive (Nonreactive)
== END 2025-03-08 11:08 | disposition home or self-care (01) ==
LOC: HO.CHCLDS 11:07
PROVIDERS: Visit Provider Internal Medicine
DX: I10 Essential (primary) hypertension (principal); Z11.59 Encounter for screening for other viral diseases; Z11.4 Encounter for screening for human immunodeficiency virus [HIV]; Z20.6 Contact with and (suspected) exposure to human immunodeficiency virus [HIV]
CPT/HCPCS: 36415; 86803; 87389